=== PATIENT | male | born 1945 | race Caucasian/White ===

== ENCOUNTER 2020-06-11 19:23 | Inpatient (IN) ==
[2020-06-11] MEDS ORDERED: KETOROLAC TROMETHAMINE 15 MG/ML VIAL IV ONE (19:38)
--- NOTE | 2020-06-11 19:44 | Emergency Department Note ---
History of Present Illness General Chief complaint: Wound Stated complaint: R LOWER EXTREMITY PAIN, WOUND Time Seen by Provider: 06/11/20 19:24 Source: patient Mode of arrival: EMS Limitations: no limitations History of Present Illness Provider complaint: Right leg pain Maximum Pain Intensity: 10 Patient presents to the ED with a chief complaint of a pain in his right distal leg. He has had a wound in the distal right anterior tibial region for years. He has no additional complaints at this time. The patient has no additional complaints at this time. Pain is worse with touching it. Describes it as a sharp pain. Home Medications Medication Instructions Recorded Confirmed Type aspirin 81 mg tablet,delayed 81 mg PO DAILY 05/26/19 06/11/20 History release atorvastatin 40 mg tablet 40 mg PO HS 05/26/19 06/11/20 History ciclesonide 160 mcg/actuation 2 puffs INH BID 05/26/19 06/11/20 History aerosol inhaler hydrochlorothiazide 12.5 mg tablet 12.5 mg PO DAILY 05/26/19 06/11/20 History isosorbide mononitrate 30 mg 30 mg PO DAILY 05/26/19 06/11/20 History tablet,extended release 24 hr lisinopril 5 mg tablet 5 mg PO DAILY 05/26/19 06/11/20 History metoprolol succinate 25 mg 12.5 mg PO BID 05/26/19 06/11/20 History tablet,extended release 24 hr montelukast 10 mg tablet 10 mg PO DAILY 05/26/19 06/11/20 History nitroglycerin 0.4 mg sublingual 0.4 mg SL DAILY PRN 05/26/19 06/11/20 History tablet prednisone 5 mg tablet 5 mg PO BID 05/26/19 06/11/20 History ranolazine 500 mg tablet,extended 500 mg PO BID 05/26/19 06/11/20 History release,12 hr umeclidinium 62.5 mcg-vilanterol 1 puffs INH DAILY 05/26/19 06/11/20 History 25 mcg/actuation powdr for inhalation diclofenac sodium [Voltaren] 50 mg PO BID 06/11/20 06/11/20 History levalbuterol tartrate [Xopenex HFA] 2 inh INHALATION QID PRN 06/11/20 06/11/20 History Allergies Allergy/AdvReac Type Severity Reaction Status Date / Time clindamycin Allergy Unknown Unknown Verified 06/11/20 20:20 Penicillins Allergy Unknown Unknown Verified 06/11/20 20:20 Past Med/Surg History Medical History CAD (coronary artery disease) Surgical History No pertinent past surgical history Social History Smoking Status: Unknown if ever smoked Preferred Language: German Feels Safe at Home: Yes Review of Systems A total of 10 systems reviewed and were otherwise negative Physical Exam Vital Signs Vital Signs - 24 hr 06/11/20 19:35 06/11/20 21:13 06/11/20 21:21 Temperature 37.0 C Temperature Source Oral Pulse Rate 121 H Pulse Rate [Apical] 114 H Pulse Rhythm Regular Pulse Strength Normal Respiratory Rate 26 H 18 Respiratory Effort / Characteristics Non-Labored Respiratory Depth Normal Respiratory Pattern Regular Blood Pressure 93/67 L Blood Pressure [Right Arm] 92/45 L Blood Pressure Mean 75 Blood Pressure Mean [Right Arm] 60 Blood Pressure Position Sitting Pulse Oximetry 92 90 92 Oxygen Delivery Method Room Air Room Air Nasal Cannula Oxygen Flow Rate 2 Sepsis Recent Fever Within 48 Hours No Sepsis New/Unexplained Change in Mental Status N/A Sepsis Action Taken by Nursing Physician Notified CONSTITUTIONAL/VITAL SIGNS: Reviewed / noted above. GENERAL: Non-toxic in appearance. INTEGUMENTARY: Warm, dry, and [employer] [place]. HEAD: Normocephalic. EYES: without scleral icterus or trauma. ENT/OROPHARYNX: clear and moist. LYMPHADENOPATHY/NECK: Is supple without lymphadenopathy or meningismus. RESPIRATORY: Lungs clear and equal. CARDIOVASCULAR: Regular rate and rhythm. GI/ABDOMEN: Soft and nontender. No organomegaly or pulsatile mass. No rebound or guarding. Normal bowel sounds. EXTREMITIES: Warm and well perfused. The patient has a chronic appearing wound in the right anterior tibial region that seems to be chronic. The patient has some erythema to the right leg but is in the distal right leg. His leg is cool to touch. There is no palpable distal pulses in either distal extremity but the left one is not cool. No dopplerable pulses are found in the bilateral lower extremities. NEUROLOGICAL: Intact without focal deficits. PSYCHIATRIC: normal affect. MUSCULOSKELETAL: Normally developed with good muscle tone. TRIAGE NURSING DOCUMENTATION REVIEWED. Course Administered Medications Levofloxacin/Dextrose (Levaquin/D5w) 750 mg in 150 mls @ 100 mls/hr IV NOW STA Stop: 06/11/20 22:50 Last Admin: 06/11/20 21:53 Dose: 100 mls/hr Documented by: [id number] Vancomycin HCl 1,500 mg/ (Sodium Chloride) 530 mls @ 200 mls/hr IV NOW ONE Stop: 06/12/20 00:05 Last Admin: 06/11/20 21:53 Dose: 200 mls/hr Documented by: [id number] Discontinued Medications Fentanyl Citrate (Fentanyl Citrate 100 Mcg/2 Ml Vial) 50 mcg IV NOW STA Stop: 06/11/20 21:22 Last Admin: 06/11/20 21:52 Dose: 50 mcg Documented by: [id number] Sodium Chloride (Nss) 500 mls @ 999 mls/hr IV .Q31M LIZETT Stop: 06/11/20 20:15 Last Infusion: 06/11/20 20:24 Dose: 0 mls/hr Documented by: [id number] Admin: 06/11/20 19:52 Dose: 999 mls/hr Documented by: [id number] Sodium Chloride (Nss 1000ml) 1,000 mls @ 999 mls/hr IV .Q1H1M ONE Stop: 06/11/20 22:32 Last Admin: 06/11/20 21:53 Dose: 999 mls/hr Documented by: [id number] Ioversol (Optiray 320 125ml) 120 ml IV ONCE ONE Stop: 06/11/20 20:28 Last Admin: 06/11/20 20:27 Dose: 120 ml Documented by: [id number] Ketorolac Tromethamine (Ketorolac Tromethamine 15 Mg/Ml Vial) 15 mg IV NOW ONE Stop: 06/11/20 19:39 Last Admin: 06/11/20 19:52 Dose: 15 mg Documented by: [id number] Critical Care Time Critical Care Time: Yes Total Critical Care Time: 45 I have personally spent 45 minutes of critical care time in the direct management of this patient. This includes bedside care, interpretation of diagnostic studies, and testing, discussion with consultants, patient, and family members, and other required patient management activities. This 45 minutes is in excess of all separately billable procedures. Medical Decision Making Differential Diagnosis Differential includes vascular sufficiency, ischemic limb, infection, osteomyelitis, DVT Medical Records Attestation: I reviewed the patient's medical records. Home Medications Current Medication List: was personally reviewed by me Laboratory Data Attestation: I reviewed the patient's lab results. Result diagrams: 06/11/20 19:44 06/11/20 19:44 Lab Results 06/11/20 06/11/20 06/11/20 Range/Units 19:44 19:44 21:13 WBC 18.41 H (4.8-10.8) K/uL RBC 4.33 L (4.7-6.1) M/uL Hgb 13.6 L (14.0-18.0) g/dL Hct 39.6 L (42-52) % MCV 91.5 (80-100) fL MCH 31.4 (25-34) pg MCHC 34.3 (32-36) g/dL RDW Std Deviation 48.3 H (36.4-46.3) fL RDW Coeff of Sarah 14.4 (11.5-14.5) % Plt Count 138 (130-400) K/uL MPV 12.9 H (7.4-10.4) fL Neutrophils % (Manual) 81.4 % Lymphocytes % (Manual) 7.1 % Monocytes % (Manual) 10.6 % Myelocytes % (Man) 0.9 % Neutrophils # (Manual) 14.99 H (1.4-6.5) K/uL Total Absolute Neuts 14.99 H (1.4-6.5) K/uL Lymphocytes # (Manual) 1.31 (1.2-3.4) K/uL Total Abs Lymphocytes 1.31 (1.2-3.4) K/uL Monocytes # (Manual) 1.95 H (0.11-0.59) K/uL Myelocytes # (Manual) 0.17 H (0-0) K/uL Acanthocytes (Spur) 1+ Sodium 143 (136-145) mmol/L Potassium 3.6 (3.5-5.1) mmol/L Chloride 109 H (98-107) mmol/L Carbon Dioxide 23 (21-32) mmol/L Anion Gap 11.0 (3-11) BUN 23 H (7-18) mg/dl Creatinine 0.87 (0.6-1.4) mg/dl Est Cr Clr Drug Dosing 53.5 ml/min Est GFR ( Amer) 99.2 Est GFR (Non-Af Amer) 85.6 BUN/Creatinine Ratio 26.9 H (10-20) Glucose 93 (70-99) mg/dl Lactate (0.4-2.0) mmol/L Calcium 7.9 L (8.5-10.1) mg/dl Total Bilirubin 0.7 (0.2-1) mg/dl AST 7 L (15-37) U/L ALT 14 (12-78) U/L Alkaline Phosphatase 38 L (45-117) U/L Total Protein 5.8 L (6.4-8.2) gm/dl Albumin 2.8 L (3.4-5.0) gm/dl Globulin 3.0 (2.5-4.0) gm/dl Albumin/Globulin Ratio 0.9 (0.9-2) COVID-19 Eval Order Covid19 IDNow atMSDC SARS-CoV-2, RNA, NAAT (NEGATIVE) 06/11/20 06/11/20 Range/Units 21:13 21:49 WBC (4.8-10.8) K/uL RBC (4.7-6.1) M/uL Hgb (14.0-18.0) g/dL Hct (42-52) % MCV (80-100) fL MCH (25-34) pg MCHC (32-36) g/dL RDW Std Deviation (36.4-46.3) fL RDW Coeff of Sarah (11.5-14.5) % Plt Count (130-400) K/uL MPV (7.4-10.4) fL Neutrophils % (Manual) % Lymphocytes % (Manual) % Monocytes % (Manual) % Myelocytes % (Man) % Neutrophils # (Manual) (1.4-6.5) K/uL Total Absolute Neuts (1.4-6.5) K/uL Lymphocytes # (Manual) (1.2-3.4) K/uL Total Abs Lymphocytes (1.2-3.4) K/uL Monocytes # (Manual) (0.11-0.59) K/uL Myelocytes # (Manual) (0-0) K/uL Acanthocytes (Spur) Sodium (136-145) mmol/L Potassium (3.5-5.1) mmol/L Chloride (98-107) mmol/L Carbon Dioxide (21-32) mmol/L Anion Gap (3-11) BUN (7-18) mg/dl Creatinine (0.6-1.4) mg/dl Est Cr Clr Drug Dosing ml/min Est GFR ( Amer) Est GFR (Non-Af Amer) BUN/Creatinine Ratio (10-20) Glucose (70-99) mg/dl Lactate 3.6 H* (0.4-2.0) mmol/L Calcium (8.5-10.1) mg/dl Total Bilirubin (0.2-1) mg/dl AST (15-37) U/L ALT (12-78) U/L Alkaline Phosphatase (45-117) U/L Total Protein (6.4-8.2) gm/dl Albumin (3.4-5.0) gm/dl Globulin (2.5-4.0) gm/dl Albumin/Globulin Ratio (0.9-2) COVID-19 Eval Order SARS-CoV-2, RNA, NAAT NEGATIVE (NEGATIVE) MDM Narrative Patient presents with what appears to be an ischemic right leg in the distal half of the right lower leg. His blood pressure is 93/67. Pulse is 120. The patient platelets count is 18,000. Hemoglobin is 13.6. His chemistry panel was unremarkable. His chest x-ray reveals a right lower lobe pneumonia. Lactic acid level was elevated. Covid test is negative. CT scan confirms this as a right middle and right lower lobe pneumonia suggestive of multifocal pneumonia. The patient has extensive vascular disease in the lower extremities there is likely related to his cool right leg. The patient was given IV fluids. During his ED stay his blood pressure did drop some. He was given IV Levaquin as well as IV vancomycin. He was given some IV Toradol for his discomfort and IV fentanyl for his discomfort. I did speak with Dr. Her about the patient. He will see the patient in consultation. The patient will be admitted to the medicine service for further evaluation and care. Impression & Plan Pneumonia, Peripheral vascular disease, Ischemia of right lower extremity, Sepsis Discharge Plan Visit Data Chief Complaint: Wound Stated Complaint: R LOWER EXTREMITY PAIN, WOUND ED Provider: Pee Funes Discharge Problem: Pneumonia, Peripheral vascular disease, Ischemia of right lower extremity, Sepsis Patient Disposition: Home - Self-Care Forms Stand Alone Forms: My [facility], Virtual Emergency Department, I mportant Visit Information Prescriptions Prescriptions: No Action hydrochlorothiazide 12.5 mg tablet 12.5 mg PO DAILY RF: 0 Anoro Ellipta 62.5-25 mcg/actuation blister with device 1 puffs INH DAILY RF: 0 [place] 160 mcg/actuation HFA aerosol inhaler 2 puffs INH BID RF: 0 aspirin 81 mg tablet,delayed release (DR/EC) 81 mg PO DAILY RF: 0 atorvastatin 40 mg tablet 40 mg PO HS RF: 0 isosorbide mononitrate 30 mg tablet extended release 24 hr 30 mg PO DAILY RF: 0 lisinopril 5 mg tablet 5 mg PO DAILY RF: 0 metoprolol succinate 25 mg tablet extended release 24 hr 12.5 mg PO BID RF: 0 montelukast 10 mg tablet 10 mg PO DAILY RF: 0 nitroglycerin 0.4 mg tablet, sublingual 0.4 mg SL DAILY PRN (Reason: Chest Pain) RF: 0 prednisone 5 mg tablet 5 mg PO BID RF: 0 ranolazine 500 mg tablet extended release 12 hr 500 mg PO BID RF: 0 diclofenac sodium [Voltaren] 50 mg Tablet,Delayed Release (Dr/Ec) 50 mg PO BID RF: 0 levalbuterol tartrate [Xopenex HFA] 45 mcg/actuation Hfa Aerosol Inhaler 2 inh INHALATION QID PRN (Reason: Shortness Of Breath) RF: 0 Referrals Referrals: Tatianna ALVA [Primary Care Provider] - Discharge Problem: Pneumonia Qualifiers: Pneumonia type: due to unspecified organism Laterality: right Lung location: lower lobe of lung Qualified Code(s): J18.9 - Pneumonia, unspecified organism Sepsis Qualifiers: Sepsis type: sepsis due to unspecified organism Sepsis acute organ dysfunction status: without acute organ dysfunction Qualified Code(s): A41.9 - Sepsis, unspecified organism
[2020-06-11] MEDS ORDERED: SODIUM CHLORIDE 0.9% 500 ML IV SCH (19:45)
[2020-06-11 20:00] LABS: Hematocrit (blood only) 39.6 % (42-52); Hemoglobin 13.6 g/dL (14.0-18.0); Mean Corpuscular Hemoglobin 31.4 pg (25-34); Mean Corpuscular Hgb Conc 34.3 g/dL (32-36); Mean Corpuscular Volume 91.5 fL (80-100); Mean Platelet Volume 12.9 fL (7.4-10.4); Platelet Count 138 K/uL (130-400); RDW Coefficient of Variation 14.4 % (11.5-14.5); RDW Standard Deviation 48.3 fL (36.4-46.3); Red Blood Count 4.33 M/uL (4.7-6.1); White Blood Count 18.41 K/uL (4.8-10.8)
[2020-06-11 20:17] LABS: Albumin Level 2.8 gm/dl (3.4-5.0); BUN Creatinine Ratio 26.9 (10-20); Calcium 7.9 mg/dl (8.5-10.1); Creatinine Clr Calc Pharmacy 53.5 ml/min; Est GFR (African American) 99.2; Est GFR (Non-African American) 85.6; Potassium 3.6 mmol/L (3.5-5.1)
[2020-06-11 20:20] LABS: Albumin Globulin Ratio 0.9 (0.9-2); Bilirubin,Total 0.7 mg/dl (0.2-1); Total Protein 5.8 gm/dl (6.4-8.2)
[2020-06-11 20:21] LABS: ALC (manual) 1.31 K/uL (1.2-3.4); ANC (manual) 14.99 K/uL (1.4-6.5); Acanthocytes 1+; Lymphocytes # (manual) 1.31 K/uL (1.2-3.4); Lymphocytes % (manual) 7.1 %; Monocytes # (manual) 1.95 K/uL (0.11-0.59); Monocytes % (manual) 10.6 %; Myelocytes # (manual) 0.17 K/uL (0-0); Myelocytes % (manual) 0.9 %; Neutrophils # (manual) 14.99 K/uL (1.4-6.5); Neutrophils % (manual) 81.4 %
[2020-06-11] MEDS ORDERED: OPTIRAY 320 125ml IV ONE (20:27)
[2020-06-11] MEDS ORDERED: levoFLOXacin/D5W 750 MG/150 ML BAG IV STA (21:21)
[2020-06-11] MEDS ORDERED: fentaNYL citrate 100 MCG/2 ML VIAL IV STA (21:21)
[2020-06-11] MEDS ORDERED: VANCOMYCIN CONSULT ACTIVE PRN (21:27)
[2020-06-11] MEDS ORDERED: VANCOMYCIN HCL 1,500 MG in SODIUM CHLORIDE 0.9% 500 ML IV ONE (21:27)
[2020-06-11] MEDS ORDERED: SODIUM CHLORIDE 0.9% 1000ML 1,000 ML IV ONE ×2 (21:32→22:36)
[2020-06-11] MEDS: ALBUMIN 25% 12.5 GM/50 ML VIAL IV SCH (23:46)
[2020-06-11] MEDS ORDERED: CEFEPIME 2,000 MG/20 ML VIAL IV STA (23:52)
--- NOTE | 2020-06-11 23:55 | History & Physical Report ---
Date of Service June 11, 2020 Assessment & Plan (1) Pneumonia: 75-year-old male with past medical history significant for CAD, HTN, HLD, extensive smoking history and COPD, hemorrhoids admitted for severe sepsis with acute hypoxic respiratory failure, with initial complaint of RLE pain with findings consistent with critical limb ischemia. Severe sepsis with acute hypoxic respiratory failure: - On arrival with complaints of RLE pain, quickly started to develop shortness of breath requiring supplemental oxygen. - COVID-19 testing negative. Lactate elevated to 4.4. WBC count elevated to 18.41. - CXR showed large RLL consolidation. - CTA abdomen and pelvis noted extensive consolidative and ground glass density seen in the right middle and right lower lobes suggestive of multifocal pneumonia. - Patient was started on vanc/Levaquin therapies, transitioned to vanc/cefepime/Flagyl to cover for aspiration pneumonia pathogens. - Did receive total of 2L NSS in the ER, but very rapidly required Lasix due to fluid overload causing dyspnea and hypoxia. - Patient is currently on 9L oxygen mask. Move to HFNC if necessary; will try to defer BiPAP as much as possible given concern for aspiration pneumonia on imaging. - Orders placed for albumin with Lasix IV. - Mucomyst, chest PT twice daily for secretions. - Continue home montelukast, prednisone 5 mg p.o. twice daily, Anoro Ellipta inhaler. - Acute hypoxic respiratory failure suspected to be multifactorial secondary to acute RLL pneumonia, fluid overload with likely reduced EF, baseline COPD with extensive smoking history. Critical RLE ischemia: - CTA A/P showed extensive atherosclerotic calcifications in the infrarenal ab dominal aorta common iliac and external iliac arteries. Severe stenosis noted of right external iliac artery, left common iliac artery, left popliteal artery, right superficial femoral and popliteal arteries. Occlusion of right posterior and right peroneal arteries just beyond the origin. - Patient has a anterior RLE nonhealing ulcer that the patient reports he has had for 2 years. - Vascular surgery consult placed and appreciate recommendations: Suspect that due to extensive disease this patient may require amputation. - Order placed for Tylenol as needed for pain. Given significant respiratory compromise at this time will hold on opiate as needed medications. CAD/ ?CHF: - History of CAD noted in chart, no echocardiogram on file. - Patient noted to become severely fluid overloaded and hypoxic with audible crackles after receiving 2L NSS bolus for severe sepsis in the ER. - TTE ordered for a.m. given fluid overload with unknown EF. - Continue isosorbide mononitrate, ranolazine, metoprolol. - Hold aspirin in the setting of BRBPR. - Lasix as needed for signs of fluid overload. Rectal bleeding: - While in ER patient had a BM with small amount of bright red blood in stool. - Patient hemoglobin on arrival 13.3, has a history of hemorrhoids, likely secondary to this. - However, will still hold antiplatelet and anticoagulant medications and await follow-up H/H. HLD: - Continue home atorvastatin. HTN: - On arrival patient was acutely hypotensive to 80s/50s, with improvement in BP to 150s/80s with fluid resuscitation. - Will hold HCTZ, lisinopril given recent hypotension. - Continue isosorbide mononitrate and metoprolol. - Hold aspirin in the setting of BRBPR. CODE STATUS: Full code FEN/GI: Heart healthy low-sodium diet DVT prophylaxis: SCDs, hold heparin at this time given BRBPR Dispo: Telemetry for continuous cardiac and oxygen monitoring in the setting of acute hypoxic respiratory failure and severe sepsis (2) Peripheral vascular disease: (3) Sepsis with acute hypoxic respiratory failure: (4) Critical lower limb ischemia: History of Present Illness Chief Complaint: RLE pain, dyspnea Primary Care Provider: ARTIE aCmpuzano 75-year-old male with past medical history significant for CAD, HTN, HLD, extensive smoking history and COPD, hemorrhoids admitted for severe sepsis with acute hypoxic respiratory failure, with initial complaint of RLE pain with findings consistent with critical limb ischemia. Patient reports that he has been dealing with a nonhealing RLE wound for the last 2 years, acutely painful, worse with palpation. No recent fevers or chills. On initial presentation was not complaining of shortness of breath, however when I evaluated the patient he appeared to be short of breath with tachypnea and was on nasal cannula. He reports that he has dealt with some shortness of breath with over the last several days but that this is the worst he has felt. No known sick contacts. ER course included COVID-19 negative, elevated lactate and WBCs, CXR and CT suggestive of multifocal pneumonia in RLL. CTA showed findings suggestive of critical limb ischemia and RLE with fairly extensive PAD throughout. On my interview patient is denying chest pain, nausea or vomiting, diarrhea or constipation, dizziness or headache. Does endorse significant shortness of breath, and can be heard gurgling with expiration. Allergies Allergy/AdvReac Type Severity Reaction Status Date / Time clindamycin Allergy Unknown Unknown Verified 06/11/20 20:20 Penicillins Allergy Unknown Unknown Verified 06/11/20 20:20 Home Medications Medication Instructions Recorded Confirmed Type aspirin 81 mg tablet,delayed 81 mg PO DAILY 05/26/19 06/11/20 History release atorvastatin 40 mg tablet 40 mg PO HS 05/26/19 06/11/20 History ciclesonide 160 mcg/actuation 2 puffs INH BID 05/26/19 06/11/20 History aerosol inhaler hydrochlorothiazide 12.5 mg tablet 12.5 mg PO DAILY 05/26/19 06/11/20 History isosorbide mononitrate 30 mg 30 mg PO DAILY 05/26/19 06/11/20 History tablet,extended release 24 hr lisinopril 5 mg tablet 5 mg PO DAILY 05/26/19 06/11/20 History metoprolol succinate 25 mg 12.5 mg PO BID 05/26/19 06/11/20 History tablet,extended release 24 hr montelukast 10 mg tablet 10 mg PO DAILY 05/26/19 06/11/20 History nitroglycerin 0.4 mg sublingual 0.4 mg SL DAILY PRN 05/26/19 06/11/20 History tablet prednisone 5 mg tablet 5 mg PO BID 05/26/19 06/11/20 History ranolazine 500 mg tablet,extended 500 mg PO BID 05/26/19 06/11/20 History release,12 hr umeclidinium 62.5 mcg-vilanterol 1 puffs INH DAILY 05/26/19 06/11/20 History 25 mcg/actuation powdr for inhalation diclofenac sodium [Voltaren] 50 mg PO BID 06/11/20 06/11/20 History levalbuterol tartrate [Xopenex HFA] 2 inh INHALATION QID PRN 06/11/20 06/11/20 History Past Med/Surg History Medical History CAD (coronary artery disease) Surgical History No pertinent past surgical history Social History Smoking Status: Unknown if ever smoked Preferred Language: Thai Feels Safe at Home: Yes Review of Systems 2 Review of Systems: All systems reviewed & are unremarkable except as noted in HPI & below Constitutional: + malaise; no fever and no chills Respiratory: + cough and + dyspnea Cardiovascular: no chest pain, no palpitations and no edema Gastrointestinal: no abdominal pain, no constipation and no diarrhea/loose stools Physical Exam Constitutional: well developed, + acute distress (Due to breathing), + ill appearing and + thin Eyes: PERRL, conjunctivae normal, anicteric sclerae ENMT: external ear and nose normal, oropharynx normal Neck: normal visual inspection Respiratory: Decreased breath sounds at right lung base, no wheezes noted. On repeat examination after called by nursing patient did appear to have audible crackles and signs of fluid overload Cardiovascular: Rate/Rhythm: regular rhythm and + tachycardic Gastrointestinal (Abdomen): normal bowel sounds, soft, nontender, no hepatosplenomegaly Musculoskeletal: no cyanosis or clubbing, extremities motor strength 5/5 Skin: no rashes, warm and dry Neurologic: AAOx3, normal speech. PERRLA, EOMI, no nystagmus. Normal visual acuity bilaterally. Bilateral UE, LE, and face without sensory or motor deficits. DTRs normal. II- XII intact bilaterally. No pronator drift. No tremor. No ataxia. Psychiatric: A+Ox3, euthymic affect Results & Data Results & Data ([facility]) Vital Signs (Past 12 Hours) Vital Signs Temp Pulse Pulse Resp BP BP Pulse Ox 06/11/20 23:31 118 H 29 H 139/92 92 06/11/20 23:01 112 H 23 112/82 94 06/11/20 22:56 106 H 27 H 104/69 95 06/11/20 22:30 91 H 24 87/63 L 94 06/11/20 21:21 92 06/11/20 21:13 114 H 18 92/45 L 90 06/11/20 19:35 37.0 C 121 H 26 H 93/67 L 92 Code Status & VTE Plan VTE Prophylaxis Plan VTE Prophylaxis will be ordered: Yes Resident Activity Tracking Resident Involvement: Resident Care Provided Care Provided: Adult Hospital Medicine (1) Pneumonia Laterality: right Lung location: lower lobe of lung Pneumonia type: due to unspecified organism Qualified Code(s): J18.9 - Pneumonia, unspecified organism
[2020-06-12] MEDS ORDERED: FUROSEMIDE 40 MG in SYRINGE 0 ML IV SCH (00:30)
[2020-06-12] MEDS: ALBUMIN 25% 12.5 GM/50 ML VIAL IV SCH ×3 (00:44→02:36)
[2020-06-12] MEDS: metroNIDAZOLE 500 MG/100 ML BAG IV SCH ×4 (00:53→23:18)
[2020-06-12] MEDS ORDERED: ACETAMINOPHEN 325 MG TAB PO PRN (02:25)
[2020-06-12] MEDS ORDERED: ALBUTEROL 0.083% NEBU SOLN 3 ML VIAL NEB PRN (02:25)
[2020-06-12] MEDS ORDERED: LEVALBUTEROL TARTRATE 15 GM HFA.AER.AD INH PRN (02:25)
[2020-06-12] MEDS ORDERED: NITROGLYCERIN SL 0.4 MG/TAB TAB SL PRN (02:25)
[2020-06-12] MEDS ORDERED: HEPARIN SODIUM/DEXTROSE 25,000 UNITS/500 ML BAG IV SCH (02:25)
[2020-06-12] MEDS ORDERED: FUROSEMIDE 40 MG in SYRINGE 0 ML IV ONE (03:48)
[2020-06-12] MEDS ORDERED: ACETYLCYSTEINE 20% INHAL SOLN 4ML ***DISPENSED BY RESP. INH ONE (04:30)
[2020-06-12] MEDS: LEVALBUTEROL HCL 0.63 MG/3 ML NEB NEB PRN (04:36)
[2020-06-12] MEDS ORDERED: KETOROLAC TROMETHAMINE 15 MG/ML VIAL IV ONE (05:02)
[2020-06-12] MEDS: Heparin IV Adult Wt-Based Standard *NO* Bolus Protocol IV SCH ×2 (05:17→05:42)
[2020-06-12] MEDS ORDERED: ACETYLCYSTEINE 20% INHAL SOLN 4ML ***DISPENSED BY RESP. INH SCH (07:00)
[2020-06-12 07:08] LABS: Mean Corpuscular Hgb Conc 32.8 g/dL (32-36)
--- NOTE | 2020-06-12 07:25 | XRay Report ---
XR chest 1V portable CLINICAL HISTORY: Resp sx c/w COVID-19 COMPARISON STUDY: No previous studies for comparison. FINDINGS: There is underlying emphysema. No pneumothorax is present. Extensive right lower lung conso lidation. No pneumothorax or pleural effusion is noted. Cardiac size is normal. Mediastinal contours are normal. There is no evidence for pulmonary edema. IMPRESSION: 1. Extensive right lower lung consolidation suggestive of pneumonia. Follow-up radiographs to ensure resolution are recommended. 2. Emphysema. ACT 112: Negative or not required by law. Electronically signed by: Marquis Claire M.D. 06/12/2020 7:24 AM
[2020-06-12 07:38] LABS: BUN Creatinine Ratio 20.6 (10-20); Calcium 7.8 mg/dl (8.5-10.1); Creatinine Clr Calc Pharmacy 49.3 ml/min; Est GFR (African American) 80.3; Est GFR (Non-African American) 69.3; Potassium 3.9 mmol/L (3.5-5.1)
--- NOTE | 2020-06-12 07:51 | Hospitalist Progress Note ---
Date of Service June 12, 2020 Assessment & Plan (1) Pneumonia: 75-year-old male with past medical history significant for CAD, HTN, HLD, extensive smoking history and COPD, hemorrhoids admitted for severe sepsis with acute hypoxic respiratory failure, with initial complaint of RLE pain with findings consistent with critical limb ischemia. Severe sepsis sec to right sided ?aspiration pneumonia/CAP: - COVID-19 testing negative. - Lactate elevated to 4.4 - WBC elevated at 24.26, up from 18.41 yesterday - CXR: "Extensive right lower lung consolidation suggestive of pneumonia. Emphysema." - Aorta w/Runoff CTA: "Extensive right middle lobe and right lower lobe consolidation. This is consistent with pneumonia." - Patient was started on vanc/Levaquin therapies, transitioned to vanc/cefepime/Flagyl to cover for aspiration pneumonia pathogens. - Mucomyst, chest PT twice daily for secretions--patient has been denying these treatments per RT - Continue home montelukast, prednisone 5 mg p.o. twice daily, Anoro Ellipta inhaler. - Ordered speech therapy consult for swallowing evaluation: no issues swallowing - Pulmonology consult placed, follow recs - likely with underlying right side heart dysfunction - follow echo Acute hypoxic respiratory failure: Acute hypoxic respiratory failure suspected to be multifactorial secondary to acute RLL pneumonia, fluid overload with likely reduced EF, baseline COPD with extensive smoking history. - On arrival with complaints of RLE pain, quickly started to develop shortness of breath requiring supplemental oxygen. - no baseline PFT available. - Did receive total of 2L NSS in the ER, - worsening shortness of breath at night - given Lasix for concern of fluid overload. - Received albumin with Lasix IV--no further Lasix will be given for now as he does not seem fluid overloaded at this point - requiring 15L O2 - transitioned to HFNC per pulm recs Critical RLE ischemia: Aorta w/Runoff CTA: " Occlusion of the right common iliac, external iliac and internal iliac arteries with reconstitution at the level of the distal external iliac artery. Severe multifocal stenoses within the right superficial femoral artery with occlusion of the mid to distal aspect superficial femoral artery. No flow to the right foot. Right peroneal and posterior tibial arteries occluded just distal to vessel origins. Occlusion of the right anterior tibial artery at the level the distal shaft of the tibia. Occluded right dorsalis pedis. Vascular surgery consultation is recommended." - Patient has an anterior RLE nonhealing ulcer that the patient reports he has had for 2 years - Vascular surgery consult: - In view of the clinical findings of no motor function and lack of sensation of the right lower extremity, a right above knee amputation is recommended due to the severe occlusive disease seen on CT scan. - Would plan on later this week due to his respiratory condition. - Will consult anesthesia for pre op eval. - Would also consult cardiology due to his coronary history. - Order placed for Tylenol as needed for pain - As Tylenol not helping ordered Ultram 50 mg PO q4h prn--will continue to monitor respiratory status and hold this med if signs of worsening - Received morphine 1mg x1 with minimal relief - Dilaudid 0.5mg prn per pulmonology - Palliative consult placed today, await recs Atrial fibrillation Patient went into afib early this afternoon w HR into 160s-180s There is no clear history of this for the patient--possibly secondary to hypoxia vs pain - Received metoprolol tartrate 5mg IV x1 and pulse down to 80s - Continue metoprolol succinate 12.5mg PO BID - Continue to monitor on telemetry - will need to start anticoagulation once no further rectal bleeding CAD/ ? CHF: History of CAD noted in chart, no echocardiogram on file. concern of fluid overload after 2L given in ED - given lasix overnight. - TTE ordered for today--has not been done due to patient's respiratory status and pain - Continue isosorbide mononitrate, ranolazine, metoprolol. - Hold aspirin in the setting of BRBPR - Lasix as needed for signs of fluid overload. - Cardiology consulted, follow recs Rectal bleeding: While in ER patient had a BM with small amount of bright red blood in stool. Has a history of hemorrhoids, likely secondary to this. - Hemoglobin on arrival 13.3, today at 12.9 - Will consider restarting ASA HLD: - Continue home atorvastatin HTN: - On arrival patient was acutely hypotensive to 80s/50s, with improvement in BP to 150s/80s with fluid resuscitation. - Will continue to hold HCTZ & lisinopril as patient is normotensive - Continue isosorbide mononitrate and metoprolol CODE STATUS: Full code FEN/GI: Heart healthy low-sodium diet DVT prophylaxis: SCDs, hold heparin for now in light of BRBPR but will consider restarting if no further bleeds Dispo: Telemetry for continuous cardiac and oxygen monitoring in the setting of acute hypoxic respiratory failure and severe sepsis (2) Peripheral vascular disease: (3) Sepsis with acute hypoxic respiratory failure: (4) Critical lower limb ischemia: Admission and Anticipated Discharge Date Admission Date: June 12, 2020 Supervising Physician Co-Signing Physician Notes Resident Physician Supervision Note: I independently interviewed and examined the patient and verified the flynn history and physical, reviewed labs and image studies, discussed the case with the resident Dr. Mason and agree with the findings and care plan. reassessed multiple times through the day. in respiratory distress. lungs - crackles + heart - irregular, JVD + Patient short of breath this morning. requiring 15L oxygen. secondary to RLL with underlying copd. asking for pain medication - to help with right leg pain. discussed the concern of respiratory suppression with IV narcotics - judicious use. later went into a fib with HR in 170s. Iv metoprolol ordered. will control pain. will need to add anticoagulation considering high risk CHADS score. Reviewed Echo - 40-45% EF with right heart dysfunction - likely from severe copd. obtain PFT results. spent 35 min of critical care time. Subjective Patient seen this AM at bedside. He is adamant that the Tylenol has not been helping with his right leg pain. He is also very short of breath. Explained that given his respiratory status we have to be very careful with using opioids for his pain. He understands but expresses he would like something additional for pain regardless. Denies CP, abd pain, n/v, fever, chills. Review of Systems Review of Systems: All systems reviewed & are unremarkable except as noted in Subjective Physical Exam Physical Exam: GENERAL: A&Ox3. In pain. NECK: No JVD. No lymphadenopathy. CHEST/LUNGS: Crackles bilaterally, diminished breath sounds throughout. Tachypneic. HEART: RRR. No m/g/r. No carotid bruits. ABDOMEN: NT/ND, soft. BS+ x4 EXTREMITIES: Right leg cold to touch. No sensation below knee. Dorsalis pedis pulse not palpable. No motor function below hip. Non-healing ulcer at anterior RLE above ankle. Results & Data Results & Data ([facility]) Vital Signs (Past 12 Hours) Vital Signs Temp Pulse Pulse Resp BP BP Pulse Ox 06/12/20 07:42 111 H 36 H 95 06/12/20 07:18 36.3 C L 115 H 24 133/71 95 06/12/20 04:38 117 H 28 H 91 06/12/20 04:35 36.4 C L 112 H 18 123/74 94 06/12/20 02:25 110 H 06/12/20 02:00 36.6 C 118 H 26 H 158/82 H 94 06/12/20 01:17 121 H 22 138/88 95 06/12/20 00:31 121 H 32 H 156/83 H 94 06/12/20 00:28 92 06/12/20 00:25 121 H 22 162/90 H 84 L 06/11/20 23:31 118 H 29 H 139/92 92 06/11/20 23:01 112 H 23 112/82 94 06/11/20 22:56 106 H 27 H 104/69 95 06/11/20 22:30 91 H 24 87/63 L 94 06/11/20 21:21 92 06/11/20 21:13 114 H 18 92/45 L 90 Resident Activity Tracking Resident Involvement: Resident Care Provided Care Provided: Adult Hospital Medicine (1) Pneumonia Laterality: right Lung location: lower lobe of lung Pneumonia type: due to unspecified organism Qualified Code(s): J18.9 - Pneumonia, unspecified organism
[2020-06-12] MEDS: FLUTICASONE FUROATE 200MCG 14 PUFFS/INHALER INH SCH (07:56)
[2020-06-12] MEDS: UMECLIDINIUM/VILANTEROL 62.5/25MCG 7 PUFFS/INHALER INH SCH (07:57)
[2020-06-12] MEDS: predniSONE 5 MG TAB PO SCH ×2 (07:58→20:28)
[2020-06-12] MEDS: MONTELUKAST SODIUM 10 MG TABLET PO SCH (07:58)
[2020-06-12] MEDS: RANOLAZINE 500 MG ER TAB PO SCH ×2 (07:58→20:29)
[2020-06-12] MEDS: METOPROLOL SUCC 25MG EXT REL TAB PO SCH ×2 (07:58→20:29)
[2020-06-12] MEDS: ASPIRIN 81 MG ECTAB PO SCH (07:58)
[2020-06-12] MEDS: hydroCHLOROthiazide 25 MG TAB PO SCH (07:58)
[2020-06-12] MEDS: ISOSORBIDE MONO EXTENDED REL 30 MG TABCR PO SCH (07:59)
[2020-06-12] MEDS ORDERED: ACETAMINOPHEN 1,000 MG/100 ML VIAL IV PRN (08:11)
[2020-06-12 08:12] LABS: Hematocrit (blood only) 39.3 % (42-52); Hemoglobin 12.9 g/dL (14.0-18.0); Mean Corpuscular Volume 94.5 fL (80-100); Mean Platelet Volume 13.2 fL (7.4-10.4); Platelet Count 150 K/uL (130-400); Platelet Estimate Decreased (Normal); RDW Coefficient of Variation 14.6 % (11.5-14.5); RDW Standard Deviation 50.1 fL (36.4-46.3); Red Blood Count 4.16 M/uL (4.7-6.1); White Blood Count 24.26 K/uL (4.8-10.8)
--- NOTE | 2020-06-12 08:21 | CT Scan Report ---
CT ANGIOGRAPHY OF THE ABDOMEN AND PELVIS WITH BILATERAL LOWER EXTREMITY RUNOFF CLINICAL HISTORY: rt distal leg cold and pulseless COMPARISON STUDY: No previous studies for comparison. TECHNIQUE: Helical axial images of the abdomen and pelvis and both lower extremities were obtained du ring arterial phase following intravenous injection 120 cc Optiray 320 IV. Sagittal and coronal recon structions were viewed as well as maximal intensity projections on an independent 3-D workstation. Au tomated exposure control was utilized for the study. A dose lowering technique was utilized adhering to the principles of ALARA. FINDINGS: Visualized portions of the lower chest demonstrate extensive consolidation within visualize d portions of the right middle and right lower lobes. There is emphysema. No pneumatosis, free air or portal venous gas is present. The liver, spleen, adrenal glands and pancreas are unremarkable with e xception of moderate bilateral renal cortical thinning. There is no hydronephrosis. The gallbladder i s mildly distended without adjacent infiltration. There is no evidence for a bowel obstruction. There is mild pyloric wall thickening without adjacent infiltration. No lymphadenopathy is present. No acu te fracture is present. There are no suspicious osseous lesions. Note is made of extensive atherosclerotic plaque within the abdominal aorta and branch vessels. There is severe short segment stenosis of the proximal superior mesenteric artery. There is moderate steno sis at origin of celiac axis. The inferior mesenteric artery is likely occluded. Note is made of a 3. 4 cm infrarenal abdominal aortic aneurysm which contains mural thrombus. 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 There is no evidence for rupture. The right common iliac artery is occluded just distal to vessel origin. The small right internal balwinder c artery is occluded with distal reconstitution. The right external iliac artery is occluded with rec onstitution at the level the distal external iliac artery. Extensive atherosclerotic plaque within th e right lower extremity is noted. There is severe stenosis at the origin of the right superficial fem oral artery. Severe multifocal stenoses within this vessel are noted. There is occlusion of the mid t o distal right superficial femoral artery with minimal distal reconstitution. The right popliteal art micah is diminutive. The right peroneal and posterior tibial arteries are occluded just distal to the v essel origins. There are severe multifocal stenoses within the right anterior tibial artery which is occluded at the level of the distal shaft of the tibia. The right dorsalis pedis is occluded. No flow is identified within the right foot. Note is made of severe stenosis of the proximal left external iliac artery. There is also occlusion o f the proximal left internal iliac artery with distal reconstitution. There is extensive atherosclero tic plaque within the left lower extremity. Severe stenosis at the origin of the left superficial fem oral artery is noted. There are severe multifocal stenoses within the left superficial femoral artery . The left popliteal artery is patent. The left trifurcation is patent. The left anterior tibial fran ry is occluded at the level the mid shaft of the left tibia. The left dorsalis pedis is occluded. The left peroneal artery is patent to the ankle mortise. The left posterior tibial artery is patent to t he left foot. There is moderate to severe stenosis at the origin of the left posterior tibial artery. IMPRESSION: 1. Extensive right middle lobe and right lower lobe consolidation. This is consistent with pneumonia. 2. Extensive aortoiliac and bilateral lower extremity atherosclerotic plaque. 3.4 cm infrarenal abdom inal aortic aneurysm with extensive mural thrombus. 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 No rup ture. 3. Occlusion of the right common iliac, external iliac and internal iliac arteries with reconstitutio n at the level of the distal external iliac artery. Severe multifocal stenoses within the right super ficial femoral artery with occlusion of the mid to distal aspect superficial femoral artery. No flow to the right foot. Right peroneal and posterior tibial arteries occluded just distal to vessel origin s. Occlusion of the right anterior tibial artery at the level the distal shaft of the tibia. Occluded right dorsalis pedis. Vascular surgery consultation is recommended. These findings will be called/fa xed to the ordering provider at time of dictation. 4. Severe stenosis of the left external iliac and superficial femoral arteries. Occluded left anterio r tibial artery and dorsalis pedis. Moderate to severe stenosis of the proximal left posterior tibial artery which is patent to the foot. ACT 112: Negative or not required by law. Electronically signed by: Marquis Claire M.D. 06/12/2020 8:19 AM
--- NOTE | 2020-06-12 08:59 | Electrocardiogram Report ---
Test Reason : Blood Pressure : / mmHG Vent. Rate : 117 BPM Atrial Rate : 117 BPM P-R Int : 132 ms QRS Dur : 084 ms QT Int : 334 ms P-R-T Axes : 079 114 047 degrees QTc Int : 465 ms Poor data quality, interpretation may be adversely affected Sinus tachycardia Right atrial enlargement Right axis deviation Pulmonary disease pattern Abnormal ECG No previous ECGs available Confirmed by David Cao ([id number]) on 06/12/2020 8:58:51 AM Referred By: Tatianna ALVA Confirmed By:David Cao
--- NOTE | 2020-06-12 09:21 | Consultation ---
Date of Consultation June 12, 2020 Assessment & Plan (1) Critical lower limb ischemia: CT with contrast showed a right common iliac, external iliac, proximal short superficial femoral artery, and distal superficial femoral artery occlusions. There are multiple severe narrowings of the right superficial femoral artery. No below the knee arteries were seen in the right lower extremity. There is also severe narrowing of the abdominal aorta. In view of the clinical findings of no motor function and lack of sensation of the right lower extremity, a right above knee amputation is recommended due to the severe occlusive disease seen on CT scan. Would plan on later this week due to his respiratory condition. Will consult anesthesia for pre op eval. Would also consult cardiology due to his cornary history. Thank you very much for letting us participate in the care of this patient. History of Present Illness Reason for Consultation: Right leg numbness, pain, and coldness. Attending Physician: Eli Ladd MD History of Present Illness Patient is a 75 yo male who developed right lower extremity pain, numbness, and coldness which was severe yesterday. He has no pain of the left lower extremity. He claims that he was able to walk on the right leg the day before. He has had an ulcer of the right lower extremity for 2years now without healing. He did not walk fast enough or far enough to claudicate. He denies any rest pain prior to yesterday. He did present with worsening shortness of breath. Allergies Allergy/AdvReac Type Severity Reaction Status Date / Time clindamycin Allergy Unknown Unknown Verified 06/11/20 20:20 Penicillins Allergy Unknown Unknown Verified 06/11/20 20:20 Home Medications Medication Instructions Recorded Confirmed Type aspirin 81 mg tablet,delayed 81 mg PO DAILY 05/26/19 06/11/20 History release atorvastatin 40 mg tablet 40 mg PO HS 05/26/19 06/11/20 History ciclesonide 160 mcg/actuation 2 puffs INH BID 05/26/19 06/11/20 History aerosol inhaler hydrochlorothiazide 12.5 mg tablet 12.5 mg PO DAILY 05/26/19 06/11/20 History isosorbide mononitrate 30 mg 30 mg PO DAILY 05/26/19 06/11/20 History tablet,extended release 24 hr lisinopril 5 mg tablet 5 mg PO DAILY 05/26/19 06/11/20 History metoprolol succinate 25 mg 12.5 mg PO BID 05/26/19 06/11/20 History tablet,extended release 24 hr montelukast 10 mg tablet 10 mg PO DAILY 05/26/19 06/11/20 History nitroglycerin 0.4 mg sublingual 0.4 mg SL DAILY PRN 05/26/19 06/11/20 History tablet prednisone 5 mg tablet 5 mg PO BID 05/26/19 06/11/20 History ranolazine 500 mg tablet,extended 500 mg PO BID 05/26/19 06/11/20 History release,12 hr umeclidinium 62.5 mcg-vilanterol 1 puffs INH DAILY 05/26/19 06/11/20 History 25 mcg/actuation powdr for inhalation diclofenac sodium [Voltaren] 50 mg PO BID 06/11/20 06/11/20 History levalbuterol tartrate [Xopenex HFA] 2 inh INHALATION QID PRN 06/11/20 06/11/20 History Patient History Medical History CAD (coronary artery disease) Surgical History No pertinent past surgical history Social History Smoking Status: Unknown if ever smoked Hx Alcohol Use: No Hx Substance Use: No Preferred Language: Upper Sorbian Communication Ability: Effective 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 He has no feeling below the tibial plateau He has no motor function of the right lower extremity below the hip. The leg is cold to touch and mottled from the knee distally. There is a non healing ulcer of the right lower extremity anteriorly above the ankle. Left leg has decreased capillary refill Normal motor function and sensation. No ulcerations are seen Results & Data ([facility]) Vital Signs (Past 12 Hours) Vital Signs Temp Pulse Pulse Resp BP BP Pulse Ox 06/12/20 07:42 111 H 36 H 95 06/12/20 07:18 36.3 C L 115 H 24 133/71 95 06/12/20 04:38 117 H 28 H 91 06/12/20 04:35 36.4 C L 112 H 18 123/74 94 06/12/20 02:25 110 H 06/12/20 02:00 36.6 C 118 H 26 H 158/82 H 94 06/12/20 01:17 121 H 22 138/88 95 06/12/20 00:31 121 H 32 H 156/83 H 94 06/12/20 00:28 92 06/12/20 00:25 121 H 22 162/90 H 84 L 06/11/20 23:31 118 H 29 H 139/92 92 06/11/20 23:01 112 H 23 112/82 94 06/11/20 22:56 106 H 27 H 104/69 95 06/11/20 22:30 91 H 24 87/63 L 94 06/11/20 21:21 92
--- NOTE | 2020-06-12 09:30 | Pharmacy Report ---
Pharmacy Abx Initial Consult - Date of Service June 12, 2020 - Pharmacy Dosing Scope Date of Consult: 06/11/20 Consultation requested by: Dr. Christian Pharmacy is consulted to initiate Vancomycin IV dosing therapy, order appropriate labs and adjust drug dose/frequency. - Subjective The patient is a 75 year old M admitted on 06/12/20 00:00. - Objective Height: 5 ft 7 in Weight: 56.2 kg Vital Signs (Past 12hrs): Vital Signs Temp Pulse Pulse Resp BP BP Pulse Ox 06/12/20 07:42 111 H 36 H 95 06/12/20 07:18 36.3 C L 115 H 24 133/71 95 06/12/20 04:38 117 H 28 H 91 06/12/20 04:35 36.4 C L 112 H 18 123/74 94 06/12/20 02:25 110 H 06/12/20 02:00 36.6 C 118 H 26 H 158/82 H 94 06/12/20 01:17 121 H 22 138/88 95 06/12/20 00:31 121 H 32 H 156/83 H 94 06/12/20 00:28 92 06/12/20 00:25 121 H 22 162/90 H 84 L 06/11/20 23:31 118 H 29 H 139/92 92 06/11/20 23:01 112 H 23 112/82 94 06/11/20 22:56 106 H 27 H 104/69 95 06/11/20 22:30 91 H 24 87/63 L 94 06/11/20 21:21 92 Lab Results (24hrs): Laboratory Tests (24 Hours) 06/12/20 06/12/20 06/11/20 06:35 06:35 19:44 WBC 24.26 H Creatinine 1.06 0.87 Est Cr Clr Drug Dosing 49.3 53.5 06/11/20 19:44 WBC 18.41 H Creatinine Est Cr Clr Drug Dosing Micro Results: 06/11/20 21:49 Aerobic Blood Culture - Pending Blood Anaerobic Blood Culture - Pending 06/11/20 19:44 Aerobic Blood Culture - Pending Blood Anaerobic Blood Culture - Pending - Risk Factors for Resistance * Incarcerated * Prednisone 5 mg PO BID - Assessment & Plan Assessment 75 year old M admitted secondary to RLE pain but found to be SOB upon admission * PMHx significant for smoking with COPD and using Prednisone 5 mg PO BID. * He is afebrile but tachypneic and tachycardic. Requiring 15L on Oxymask currently. His lactate was elevated at 3.6 then went up to 4.4. Leukocytosis has worsened today (18.4k--24.3k). Renal fxn worsened as well (SCr 0.87--1. 06). Will recommend ordering a procalcitonin. * Imaging suggestive of pneumonia. * COVID-19 negative. Blood cultures pending. Unlikely that a MRSA nasal swab would be reliable after already receiving vancomycin. * Agree with vancomycin and cefepime to cover for HCAP organisms. Metronidazole added for aspiration coverage. Vancomycin is only antibiotic pharmacy is consulted on. Plan Vancomycin + Cefepime + Metronidazole for treatment of pneumonia Vancomycin IV * Loading dose: 1500 mg (27 mg/kg) * Maintenance dose: 750 mg IV (13 mg/kg) every 12 hours * Goal trough level: 15 to 20 mcg/mL * Trough level ordered for 06/13/20 Cefepime * 2 g IV every 12 hours for CrCl 30 - 60 mL/min Metronidazole * 500 mg IV every 8 hours Pharmacy will continue to follow and will adjust dose/frequency as necessary. Thank you.
[2020-06-12] MEDS: VANCOMYCIN HCL 750 MG in SODIUM CHLORIDE 0.9% 250 ML IV SCH ×2 (09:32→21:59)
[2020-06-12 09:51] LABS: Troponin I 0.235 ng/ml (0-0.045)
--- NOTE | 2020-06-12 10:08 | Cardiology Consultation ---
Date of Consultation June 12, 2020 History of Present Illness Reason for Consultation: Coronary artery disease, possible CHF Attending Physician: Eli Ladd MD History of Present Illness This is a 75-year-old incarcerated male who has an extensive past medical history including hypertension, dyslipidemia, smoking, COPD and coronary artery disease as well as peripheral vascular disease and limb ischemia. He has had a lot of difficulty with lower extremity discomfort and limb ischemia and presented with pain, he was not short of breath on presentation however subsequently appeared short of breath and tachypneic and admitted to feeling more short of breath the last several days. Chest x-ray and CT scan suggested multifocal pneumonia and he had an elevated lactate level and leukocytosis consistent with sepsis. He was Covid 19 negative. He is being treated for sepsis and respiratory failure. He does have a history of coronary artery disease although I do not have de tails. He did receive IV fluid in the emergency room due to hypotension on arrival, he may have developed congestive heart failure from that. His ejection fraction is unknown. Allergies Allergy/AdvReac Type Severity Reaction Status Date / Time clindamycin Allergy Unknown Unknown Verified 06/11/20 20:20 Penicillins Allergy Unknown Unknown Verified 06/11/20 20:20 Home Medications Medication Instructions Recorded Confirmed Type aspirin 81 mg tablet,delayed 81 mg PO DAILY 05/26/19 06/11/20 History release atorvastatin 40 mg tablet 40 mg PO HS 05/26/19 06/11/20 History ciclesonide 160 mcg/actuation 2 puffs INH BID 05/26/19 06/11/20 History aerosol inhaler hydrochlorothiazide 12.5 mg tablet 12.5 mg PO DAILY 05/26/19 06/11/20 History isosorbide mononitrate 30 mg 30 mg PO DAILY 05/26/19 06/11/20 History tablet,extended release 24 hr lisinopril 5 mg tablet 5 mg PO DAILY 05/26/19 06/11/20 History metoprolol succinate 25 mg 12.5 mg PO BID 05/26/19 06/11/20 History tablet,extended release 24 hr montelukast 10 mg tablet 10 mg PO DAILY 05/26/19 06/11/20 History nitroglycerin 0.4 mg sublingual 0.4 mg SL DAILY PRN 05/26/19 06/11/20 History tablet prednisone 5 mg tablet 5 mg PO BID 05/26/19 06/11/20 History ranolazine 500 mg tablet,extended 500 mg PO BID 05/26/19 06/11/20 History release,12 hr umeclidinium 62.5 mcg-vilanterol 1 puffs INH DAILY 05/26/19 06/11/20 History 25 mcg/actuation powdr for inhalation diclofenac sodium [Voltaren] 50 mg PO BID 06/11/20 06/11/20 History levalbuterol tartrate [Xopenex HFA] 2 inh INHALATION QID PRN 06/11/20 06/11/20 History Patient History Medical History AAA (abdominal aortic aneurysm) CAD (coronary artery disease) Cardiomyopathy, ischemic CHF (congestive heart failure) Chronic steroid use COPD (chronic obstructive pulmonary disease) Critical lower limb ischemia Dyslipidemia Emphysema of lung History of [place] (myocardial infarction) Ischemia of right lower extremity Peripheral vascular disease Tobacco abuse Surgical History History of percutaneous coronary intervention Hx of cardiac catheterization Family History Other Family history non-contributory Social History Smoking Status: Unknown if ever smoked Tobacco Type: Cigarettes Age Started Using Tobacco: 18; packs per day: 1; Number of Years Since Quit: 2; Hx Alcohol Use: No Hx Substance Use: No Preferred Language: Azeri Communication Ability: Effective 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 Required: No marital status: / Current Living Situation: Other Current Living Situation Comment: [facility] How many Children do You have: 1 Feels Safe at Home: Yes Assistive Devices: Oxygen - Continuous Results & Data ([facility]) Vital Signs (Past 12 Hours) Vital Signs Temp Pulse Pulse Resp BP BP Pulse Ox 06/12/20 07:42 111 H 36 H 95 06/12/20 07:18 36.3 C L 115 H 24 133/71 95 06/12/20 04:38 117 H 28 H 91 06/12/20 04:35 36.4 C L 112 H 18 123/74 94 06/12/20 02:25 110 H 06/12/20 02:00 36.6 C 118 H 26 H 158/82 H 94 06/12/20 01:17 121 H 22 138/88 95 06/12/20 00:31 121 H 32 H 156/83 H 94 06/12/20 00:28 92 06/12/20 00:25 121 H 22 162/90 H 84 L 06/11/20 23:31 118 H 29 H 139/92 92 06/11/20 23:01 112 H 23 112/82 94 06/11/20 22:56 106 H 27 H 104/69 95 06/11/20 22:30 91 H 24 87/63 L 94 PG Care Time/CCT Total # of Minutes Spent Total Time Spent with Patient: Total time spent is greater than 50% in coordination of care (as documented) at patient's floor/unit and/or counseling patient: Coding Level of Care Code None
[2020-06-12] MEDS: traMADol HCL 50 MG TABLET PO PRN ×2 (10:20→23:16)
[2020-06-12 10:27] LABS: Allen Test Pos (Pos); HCO3 ABG 17 mmol/L (19-24); Oxygen Saturation ABG 97.1 % (90-95); PCO2 ABG 32 mmHg (35-46); PO2 ABG 93 mmHg (80-95); pH ABG 7.34 (7.35-7.45)
[2020-06-12] MEDS: CEFEPIME 2,000 MG/20 ML VIAL IV SCH ×2 (11:08→23:18)
--- NOTE | 2020-06-12 11:08 | Cardiology Consultation ---
Date of Consultation June 12, 2020 Assessment & Plan (1) CAD (coronary artery disease): Mr. Lomeli is a 75 year old male inmate with COPD, CAD s/p GA 4 years ago (attempted PCI, vessel ruptured, PCI aborted), Ischemic Cardiomyopathy (LVEF 40% to 45%, global hypokinesis, severe inferior hypokinesis), Infrarenal AAA, Extensive Aorto-iliac and Peripheral Arterial Disease, Dyslipidemia, who presented to [facility] ER last evening with ischemic right leg pain, which has been progressive. He admitted to feeling more short of breath over the last several days. Patient was not visibly short of breath on presentation. However he subsequently developed shortness of breath/appeared to be working harder to breathe, was hypotensive, and he was tachypneic. Chest x-ray and CT scan suggested multifocal pneumonia and he had an elevated lactate level with leukocytosis consistent with sepsis. Sepsis protocol was initiated and patient received 1.5 L bolus of IV NSS in the emergency room due to hypotension on arrival. His SARS CoV 2 testing is negative. He is currently being treated for pneumonia of the right lung and acute hypoxic respiratory failure. His primary complaint remains ongoing ischemic leg and foot pain. Dr. Her is planning on performing a Right AKA later this week if his respiratory status allows. His Troponin I is elevated and consistent with demand ischemia, and his Pro-BNP is elevated. Echocardiogram done earlier today. He appears to have a component of combined systolic and diastolic CHF and a dilated RV with elevated pressure/volume overload. Recommend the following: -- Continue to diurese with IV Lasix. -- Keep SpO2 saturations above 94%. -- Monitor I&O's, body weights. -- Continue beta suzanna, long-acting nitrate, ranolazine, and ACEI. (2) Cardiomyopathy, ischemic: ECHOCARDIOGRAM today shows: -- Overall global hypokinesis with severe inferior hypokinesis (consistent with prior infarct). -- LVEF approximately 40% to 45%. -- Moderately dilated RV, with evidence of RV pressure/volume overload. -- Mild MR. -- LV diastolic dysfunction is present. -- Management as outlined above. -- Obtain cardiac catheterization report, any cardiac imaging, and Cardiology reports regarding his GA 4 years ago. (3) Ischemia of right lower extremity: -- Ischemic right lower extremity with extensive aorto-iliac and right SFA disease. -- He has an ischemic wound on his right anterolateral leg x several months. -- Plan is to do a right AKA later if his cardiopulmonary status allows. -- Optimize volume status, aggressively treat underlying pneumonia/COPD. -- Maintain appropriate O2 saturations. -- At this moment he is a high surgical risk. -- After his pulmonary/respiratory has improved and he is hemodynamically stable could proceed with surgery provided that he take his usual cardiac medications including metoprolol, ranolazine, and isosorbide mononitrate. -- We will be able to better assess surgical risk after we review his catheterization report, cardiology notes from an outside facility. (4) Sepsis with acute hypoxic respiratory failure: -- As per attending hospitalist and pulmonology teams. History of Present Illness Reason for Consultation: -- CAD. -- Preoperative Cardiologic Evaluation. Requesting Physician: Eli Ladd MD Attending Physician: Sukhjinder Marshall MD History of Present Illness Mr. Lomeli is a 75 year old male inmate with a history of COPD, CAD s/p GA 4 years ago (attempted PCI, vessel ruptured, PCI aborted), Infrarenal AAA, Extensive Aorto-iliac and Peripheral Arterial Disease, Dyslipidemia, who presented to [facility] ER last evening with ischemic right leg pain, which has been progressive. Patient was not short of breath on presentation. However he subsequently appeared to be short of breath/working harder to breathe, was hypotensive, and he was tachypneic. He admitted to feeling more short of breath over the last several days. Chest x-ray and CT scan suggested multifocal pneumonia and he had an elevated lactate level with leukocytosis consistent with sepsis. Sepsis protocol was initiated and patient received 1.5 L bolus of IV NSS in the emergency room due to hypotension on arrival. His SARS CoV 2 testing is negative. He is currently being treated for pneumonia of the right lung and acute hypoxic respiratory failure. His primary complaint remains ongoing ischemic leg and foot pain. Dr. Her evaluated this patient and summarized the following "CT with contrast showed a right common iliac, external iliac, proximal short superficial femoral artery, and distal superficial femoral artery occlusions. There are multiple severe narrowings of the right superficial femoral artery. No below the knee arteries were seen in the right lower extremity. There is also severe narrowing of the abdominal aorta. In view of the clinical findings of no motor function and lack of sensation of the right lower extremity, a right above knee amputation is recommended due to the severe occlusive disease seen on CT scan. Would plan on later this week due to his respiratory condition." Patient can normally walk about 80 feet on a flat surface before dyspnea stops. He has not been walking much in the recent past due his ischemic leg pain. He denies any exertional chest pain, heaviness, tightness, pressure, or discomfort. He denies any exertional angina. He has chronic CORTES which he blames on COPD. He denies any exertional neck, jaw, back, or arm pain. No palpitations, syncope, or near syncope. Allergies Allergy/AdvReac Type Severity Reaction Status Date / Time clindamycin Allergy Unknown Unknown Verified 06/11/20 20:20 Penicillins Allergy Unknown Unknown Verified 06/11/20 20:20 Home Medications Medication Instructions Recorded Confirmed Type aspirin 81 mg tablet,delayed 81 mg PO DAILY 05/26/19 06/11/20 History release atorvastatin 40 mg tablet 40 mg PO HS 05/26/19 06/11/20 History ciclesonide 160 mcg/actuation 2 puffs INH BID 05/26/19 06/11/20 History aerosol inhaler hydrochlorothiazide 12.5 mg tablet 12.5 mg PO DAILY 05/26/19 06/11/20 History isosorbide mononitrate 30 mg 30 mg PO DAILY 05/26/19 06/11/20 History tablet,extended release 24 hr lisinopril 5 mg tablet 5 mg PO DAILY 05/26/19 06/11/20 History metoprolol succinate 25 mg 12.5 mg PO BID 05/26/19 06/11/20 History tablet,extended release 24 hr montelukast 10 mg tablet 10 mg PO DAILY 05/26/19 06/11/20 History nitroglycerin 0.4 mg sublingual 0.4 mg SL DAILY PRN 05/26/19 06/11/20 History tablet prednisone 5 mg tablet 5 mg PO BID 05/26/19 06/11/20 History ranolazine 500 mg tablet,extended 500 mg PO BID 05/26/19 06/11/20 History release,12 hr umeclidinium 62.5 mcg-vilanterol 1 puffs INH DAILY 05/26/19 06/11/20 History 25 mcg/actuation powdr for inhalation diclofenac sodium [Voltaren] 50 mg PO BID 06/11/20 06/11/20 History levalbuterol tartrate [Xopenex HFA] 2 inh INHALATION QID PRN 06/11/20 06/11/20 History Patient History Medical History (Updated 06/12/20 @ 16:56 by Alejandro Contreras PA-C) AAA (abdominal aortic aneurysm) CAD (coronary artery disease) Cardiomyopathy, ischemic CHF (congestive heart failure) Chronic steroid use COPD (chronic obstructive pulmonary disease) Critical lower limb ischemia Dyslipidemia Emphysema of lung History of GA (myocardial infarction) Ischemia of right lower extremity Peripheral vascular disease Tobacco abuse Surgical History No pertinent past surgical history Social History (Updated 06/12/20 @ 16:12 by Alejandro Contreras PA-C) Smoking Status: Unknown if ever smoked Tobacco Type: Cigarettes Age Started Using Tobacco: 18; packs per day: 1; Number of Years Since Quit: 2; Hx Alcohol Use: No Hx Substance Use: No Preferred Language: Brazilian Communication Ability: Effective Gun Numberer Required: No marital status: / Current Living Situation: Other Current Living Situation Comment: [facility] How many Children do You have: 1 Feels Safe at Home: Yes Assistive Devices: Oxygen - Continuous Physical Exam Physical Exam: GENERAL: Patient is tachypneic, oxy-mask is in place on 10 L/min. HEENT: Head is atraumatic, normocephalic. EOM's intact. Facies symmetric. No perioral cyanosis. NECK: No JVD. JVP is not elevated. Carotid upstrokes are + 2 bilaterally. CHEST/LUNGS: Rales present in the right lower lung field, otherwise diminished breath sounds throughout. CVS: S1 and S2 are regular at 92 bpm. No obvious murmurs, gallops, or rubs. PMI is nondisplaced. No lifts, heaves, or thrills. No abdominal aortic or renal bruits. ABDOMINAL EXAM: Bowel sounds are present. No masses, organomegaly, or tenderness. EXTREMITIES: No clubbing or cyanosis. No edema. Intact posterior tibial and radial pulses bilaterally. NEUROLOGIC EXAM: Patient is awake, alert, and oriented. Pleasant and cooperative. Answers questions appropriately. Speech is clear. Normal movement in all 4 extremities. Gait pattern is unremarkable. ECHOCARDIOGRAM 06/12/2020: -- Overall global hypokinesis with severe inferior hypokinesis (consistent with prior infarct). -- LVEF approximately 40% to 45%. -- Moderately dilated RV, with evidence of RV pressure/volume overload. -- Mild MR. -- LV diastolic dysfunction is present. -- See formal report. TELEMETRY: -- Sinus rhythm to sinus tachycardia. Results & Data ([facility]) Vital Signs (Past 12 Hours) Vital Signs Temp Pulse Pulse Resp BP BP Pulse Ox 06/12/20 10:41 117 H 06/12/20 07:42 111 H 36 H 95 06/12/20 07:18 36.3 C L 115 H 24 133/71 95 06/12/20 04:38 117 H 28 H 91 06/12/20 04:35 36.4 C L 112 H 18 123/74 94 06/12/20 02:25 110 H 06/12/20 02:00 36.6 C 118 H 26 H 158/82 H 94 06/12/20 01:17 121 H 22 138/88 95 06/12/20 00:31 121 H 32 H 156/83 H 94 06/12/20 00:28 92 06/12/20 00:25 121 H 22 162/90 H 84 L 06/11/20 23:31 118 H 29 H 139/92 92 Laboratory Results Laboratory Results - last 24 hr 06/11/20 06/11/20 06/11/20 19:44 19:44 21:13 WBC 18.41 H RBC 4.33 L Hgb 13.6 L Hct 39.6 L MCV 91.5 MCH 31.4 MCHC 34.3 RDW Std Deviation 48.3 H RDW Coeff of Sarah 14.4 Plt Count 138 MPV 12.9 H Neutrophils % (Manual) 81.4 Lymphocytes % (Manual) 7.1 Monocytes % (Manual) 10.6 Myelocytes % (Man) 0.9 Neutrophils # (Manual) 14.99 H Total Absolute Neuts 14.99 H Lymphocytes # (Manual) 1.31 Total Abs Lymphocytes 1.31 Monocytes # (Manual) 1.95 H Myelocytes # (Manual) 0.17 H Platelet Estimate Acanthocytes (Spur) 1+ ABG pH ABG pCO2 ABG pO2 ABG HCO3 ABG O2 Saturation ABG Base Excess Hernandez Test Barometric Pressure Oxygen Given Sodium 143 Potassium 3.6 Chloride 109 H Carbon Dioxide 23 Anion Gap 11.0 BUN 23 H Creatinine 0.87 Est Cr Clr Drug Dosing 53.5 Est GFR ( Amer) 99.2 Est GFR (Non-Af Amer) 85.6 BUN/Creatinine Ratio 26.9 H Glucose 93 Lactate Calcium 7.9 L Total Bilirubin 0.7 AST 7 L ALT 14 Alkaline Phosphatase 38 L Troponin I NT-Pro-B Natriuret Pep Total Protein 5.8 L Albumin 2.8 L Globulin 3.0 Albumin/Globulin Ratio 0.9 Procalcitonin COVID-19 Eval Order Covid19 [facility]Now [facility] SARS-CoV-2, RNA, NAAT 06/11/20 06/11/20 06/11/20 21:13 21:49 23:39 WBC RBC Hgb Hct MCV MCH MCHC RDW Std Deviation RDW Coeff of Sarah Plt Count MPV Neutrophils % (Manual) Lymphocytes % (Manual) Monocytes % (Manual) Myelocytes % (Man) Neutrophils # (Manual) Total Absolute Neuts Lymphocytes # (Manual) Total Abs Lymphocytes Monocytes # (Manual) Myelocytes # (Manual) Platelet Estimate Acanthocytes (Spur) ABG pH ABG pCO2 ABG pO2 ABG HCO3 ABG O2 Saturation ABG Base Excess Hernandez Test Barometric Pressure Oxygen Given Sodium Potassium Chloride Carbon Dioxide Anion Gap BUN Creatinine Est Cr Clr Drug Dosing Est GFR ( Amer) Est GFR (Non-Af Amer) BUN/Creatinine Ratio Glucose Lactate 3.6 H* 4.4 H* Calcium Total Bilirubin AST ALT Alkaline Phosphatase Troponin I NT-Pro-B Natriuret Pep Total Protein Albumin Globulin Albumin/Globulin Ratio Procalcitonin COVID-19 Eval Order SARS-CoV-2, RNA, NAAT NEGATIVE 06/12/20 06/12/20 06/12/20 06:35 06:35 06:35 WBC 24.26 H RBC 4.16 L Hgb 12.9 L Hct 39.3 L MCV 94.5 MCH 31.0 MCHC 32.8 RDW Std Deviation 50.1 H RDW Coeff of Sarah 14.6 H Plt Count 150 MPV 13.2 H Neutrophils % (Manual) Lymphocytes % (Manual) Monocytes % (Manual) Myelocytes % (Man) Neutrophils # (Manual) Total Absolute Neuts Lymphocytes # (Manual) Total Abs Lymphocytes Monocytes # (Manual) Myelocytes # (Manual) Platelet Estimate Decreased L Acanthocytes (Spur) ABG pH ABG pCO2 ABG pO2 ABG HCO3 ABG O2 Saturation ABG Base Excess Hernandez Test Barometric Pressure Oxygen Given Sodium 144 Potassium 3.9 Chloride 108 H Carbon Dioxide 22 Anion Gap 14.0 H BUN 22 H Creatinine 1.06 Est Cr Clr Drug Dosing 49.3 Est GFR ( Amer) 80.3 Est GFR (Non-Af Amer) 69.3 BUN/Creatinine Ratio 20.6 H Glucose 75 Lactate Calcium 7.8 L Total Bilirubin AST ALT Alkaline Phosphatase Troponin I 0.235 H* NT-Pro-B Natriuret Pep 5765 H Total Protein Albumin Globulin Albumin/Globulin Ratio Procalcitonin COVID-19 Eval Order SARS-CoV-2, RNA, NAAT 06/12/20 06/12/20 10:03 10:03 WBC RBC Hgb Hct MCV MCH MCHC RDW Std Deviation RDW Coeff of Sarah Plt Count MPV Neutrophils % (Manual) Lymphocytes % (Manual) Monocytes % (Manual) Myelocytes % (Man) Neutrophils # (Manual) Total Absolute Neuts Lymphocytes # (Manual) Total Abs Lymphocytes Monocytes # (Manual) Myelocytes # (Manual) Platelet Estimate Acanthocytes (Spur) ABG pH 7.34 L ABG pCO2 32 L ABG pO2 93 ABG HCO3 17 L ABG O2 Saturation 97.1 H ABG Base Excess -8.0 Hernandez Test Pos Barometric Pressure 741.3 Oxygen Given 15 L Sodium Potassium Chloride Carbon Dioxide Anion Gap BUN Creatinine Est Cr Clr Drug Dosing Est GFR ( Amer) Est GFR (Non-Af Amer) BUN/Creatinine Ratio Glucose Lactate Calcium Total Bilirubin AST ALT Alkaline Phosphatase Troponin I NT-Pro-B Natriuret Pep Total Protein Albumin Globulin Albumin/Globulin Ratio Procalcitonin 47.29 H COVID-19 Eval Order SARS-CoV-2, RNA, NAAT Diagnostic Findings CT ANGIOGRAM OF ABDOMEN/PELVIS WITH LE RUNOFF: Visualized portions of the lower chest demonstrate extensive consolidation within visualized portions of the right middle and right lower lobes. There is emphysema. No pneumatosis, free air or portal venous gas is present. The liver, spleen, adrenal glands and pancreas are unremarkable with exception of moderate bilateral renal cortical thinning. There is no hydronephrosis. The gallbladder is mildly distended without adjacent infiltration. There is no evidence for a bowel obstruction. There is mild pyloric wall thickening without adjacent infiltration. No lymphadenopathy is present. No acute fracture is present. There are no suspicious osseous lesions. Note is made of extensive atherosclerotic plaque within the abdominal aorta and branch vessels. There is severe short segment stenosis of the proximal superior mesenteric artery. There is moderate stenosis at origin of celiac axis. The inferior mesenteric artery is likely occluded. Note is made of a 3.4 cm infrarenal abdominal aortic aneurysm which contains mural thrombus. 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 There is no evidence for rupture. The right common iliac artery is occluded just distal to vessel origin. The small right internal iliac artery is occluded with distal reconstitution. The right external iliac artery is occluded with reconstitution at the level the distal external iliac artery. Extensive atherosclerotic plaque within the right lower extremity is noted. There is severe stenosis at the origin of the right superficial femoral artery. Severe multifocal stenoses within this vessel are noted. There is occlusion of the mid to distal right superficial femoral artery with minimal distal reconstitution. The right popliteal artery is diminutive. The right peroneal and posterior tibial arteries are occluded just distal to the vessel origins. There are severe multifocal stenoses within the right anterior tibial artery which is occluded at the level of the distal shaft of the tibia. The right dorsalis pedis is occluded. No flow is identified within the right foot. Note is made of severe stenosis of the proximal left external iliac artery. There is also occlusion of the proximal left internal iliac artery with distal reconstitution. There is extensive atherosclerotic plaque within the left lower extremity. Severe stenosis at the origin of the left superficial femoral artery is noted. There are severe multifocal stenoses within the left superficial femoral artery. The left popliteal artery is patent. The left trifurcation is patent. The left anterior tibial artery is occluded at the level the mid shaft of the left tibia. The left dorsalis pedis is occluded. The left peroneal artery is patent to the ankle mortise. The left posterior tibial artery is patent to the left foot. There is moderate to severe stenosis at the origin of the left posterior tibial artery. IMPRESSION: 1. Extensive right middle lobe and right lower lobe consolidation. This is consistent with pneumonia. 2. Extensive aortoiliac and bilateral lower extremity atherosclerotic plaque. 3.4 cm infrarenal abdominal aortic aneurysm with extensive mural thrombus. 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 No rupture. 3. Occlusion of the right common iliac, external iliac and internal iliac arteries with reconstitution at the level of the distal external iliac artery. Severe multifocal stenoses within the right superficial femoral artery with occlusion of the mid to distal aspect superficial femoral artery. No flow to the right foot. Right peroneal and posterior tibial arteries occluded just distal to vessel origins. Occlusion of the right anterior tibial artery at the level the distal shaft of the tibia. Occluded right dorsalis pedis. Vascular surgery consultation is recommended. These findings will be called/faxed to the ordering provider at time of dictation. 4. Severe stenosis of the left external iliac and superficial femoral arteries. Occluded left anterior tibial artery and dorsalis pedis. Moderate to severe stenosis of the proximal left posterior tibial artery which is patent to the foot. CXR 06/11/2020: 1. Extensive right lower lung consolidation suggestive of pneumonia. Follow-up radiographs to ensure resolution are recommended. 2. Emphysema. Medications Administered Acetylcysteine (Acetylcysteine 20% Inhal Soln 4ml Dispensed By Resp.) 5 ml INH Q12R LIZETT Stop: 07/12/20 06:59 Last Admin: 06/12/20 07:41 Dose: Not Given Documented by: [id number] Aspirin (Aspirin 81 Mg Ectab) 81 mg PO DAILY LIZETT Stop: 07/12/20 08:59 Last Admin: 06/12/20 07:58 Dose: 81 mg Documented by: [id number] Fluticasone Furoate (Fluticasone Furoate 200mcg 14 Puffs/Inhaler) 1 puffs INH DAILY LIZETT Stop: 07/12/20 08:59 Last Admin: 06/12/20 07:56 Dose: 1 puffs Documented by: [id number] Hydrochlorothiazide (Hydrochlorothiazide 25 Mg Tab) 12.5 mg PO DAILY LIZETT Stop: 07/12/20 08:59 Last Admin: 06/12/20 07:58 Dose: 12.5 mg Documented by: [id number] Metronidazole (Flagyl) 500 mg in 100 mls @ 100 mls/hr IV Q8H LIZETT Stop: 06/18/20 23:51 Last Infusion: 06/12/20 09:02 Dose: 0 mls/hr Documented by: [id number] Admin: 06/12/20 07:56 Dose: 100 mls/hr Documented by: [id number] Infusion: 02/08/21 02:04 Dose: 0 mls/hr Documented by: [id number] Admin: 06/12/20 00:53 Dose: 100 mls/hr Documented by: [id number] Cefepime HCl (Maxipime) 2,000 mg in 20 mls @ 5 mls/min IV Q12H LIZETT; Protocol Stop: 06/19/20 11:59 Last Admin: 06/12/20 11:08 Dose: 5 mls/min Documented by: [id number] Vancomycin HCl 750 mg/ Sodium (Chloride) 265 mls @ 200 mls/hr IV Q12H LIZETT Stop: 06/19/20 09:59 Last Infusion: 06/12/20 11:08 Dose: 0 mls/hr Documented by: [id number] Admin: 06/12/20 09:32 Dose: 200 mls/hr Documented by: [id number] Acetaminophen (Ofirmev) 1,000 mg in 100 mls @ 400 mls/hr IV Q8H PRN PRN Reason: Pain or Fever Stop: 06/15/20 08:10 Last Infusion: 06/12/20 09:02 Dose: 0 mls/hr Documented by: [id number] Admin: 06/12/20 08:39 Dose: 400 mls/hr Documented by: [id number] Isosorbide Mononitrate (Isosorbide Pettis Extended Rel 30 Mg Tabcr) 30 mg PO DAILY [facility] Stop: 07/12/20 08:59 Last Admin: 06/12/20 07:59 Dose: 30 mg Documented by: [id number] Levalbuterol HCl (Levalbuterol Hcl 0.63 Mg/3 Ml Neb) 0.63 mg NEB Q6H PRN PRN Reason: SOB/Wheezing/with mucomyst if needed Stop: 07/12/20 02:44 Last Admin: 06/12/20 04:36 Dose: 0.63 mg Documented by: [id number] Metoprolol Succinate (Metoprolol Succ 25mg Ext Rel Tab) 12.5 mg PO BID [facility] Stop: 07/12/20 08:59 Last Admin: 06/12/20 07:58 Dose: 12.5 mg Documented by: [id number] Montelukast Sodium (Montelukast Sodium 10 Mg Tablet) 10 mg PO DAILY [facility] Stop: 07/12/20 08:59 Last Admin: 06/12/20 07:58 Dose: 10 mg Documented by: [id number] Prednisone (Prednisone 5 Mg Tab) 5 mg PO BID LIZETT Stop: 07/12/20 08:59 Last Admin: 06/12/20 07:58 Dose: 5 mg Documented by: [id number] Ranolazine (Ranolazine 500 Mg Er Tab) 500 mg PO BID LIZETT Stop: 07/12/20 08:59 Last Admin: 06/12/20 07:58 Dose: 500 mg Documented by: [id number] Tramadol HCl (Tramadol Hcl 50 Mg Tablet) 50 mg PO Q4H PRN PRN Reason: Pain Stop: 07/12/20 09:44 Last Admin: 06/12/20 10:20 Dose: 50 mg Documented by: [id number] Umeclidinium/Vilanterol (Umeclidinium/Vilanterol 62.5/25mcg 7 Puffs/Inhaler) 1 puffs INH DAILY [facility]ZETT Stop: 07/12/20 08:59 Last Admin: 06/12/20 07:57 Dose: 1 puffs Documented by: [id number] PG Care Time/CCT Total # of Minutes Spent Total Time Spent with Patient: Total time spent is greater than 50% in coordination of care (as documented) at patient's floor/unit and/or counseling patient: Coding Level of Care Code 30225 Inpt Consult Level 4 Diagnoses CAD (coronary artery disease) I25.10 Cardiomyopathy, ischemic I25.5 Ischemia of right lower extremity I99.8 Sepsis with acute hypoxic respiratory failure A41.9; R65.20; J96.01 Time Spent (min) 55
--- NOTE | 2020-06-12 11:55 | XCELERA ---
[id number]
[2020-06-12] MEDS ORDERED: FUROSEMIDE 40 MG/4 ML VIAL IV ONE (12:00)
[2020-06-12] MEDS ORDERED: METOPROLOL TARTRATE 1 MG/ML VIAL IV ONE (14:01)
[2020-06-12] MEDS ORDERED: MoRPHine SULFATE 2 MG/ML CARP IV STA (14:03)
[2020-06-12] MEDS ORDERED: HYDROmorphone INJ 0.5 MG/0.5 ML SYR ONE (15:09)
--- NOTE | 2020-06-12 15:36 | XRay Report ---
SINGLE VIEW CHEST CLINICAL HISTORY: Hypoxia. FINDINGS: 2 AP, portable, upright chest radiographs are compared to study dated 06/11/2020. The examina tion is degraded by portable technique and patient rotation. The cardiomediastinal silhouette is unre markable skeletal structures are osteopenic. The noting atherosclerotic calcification of the thoracic aorta. Emphysematous change is noted. There is dense right basilar airspace consolidation with a sma ll right pleural effusion. The left lung appears clear. No pneumothorax is seen. The bony thorax is g rossly intact. IMPRESSION: 1. Advanced emphysema. 2. Right basilar consolidation and a small right pleural effusion is similar to previous. The appeara nce is typical for pneumonia/aspiration pneumonitis. Radiographic follow-up to resolution is recommen ded. ACT 112: Negative or not required by law. Electronically signed by: Alejandro Panda M.D. 06/12/2020 3:35 PM
--- NOTE | 2020-06-12 16:23 | Pulmonary Consultation ---
Date of Consultation June 12, 2020 Assessment & Plan (1) Sepsis with acute hypoxic respiratory failure: Impression: This is a 75-year-old male that is an inmate at [facility]. He presented to emergency department with right lower extremity pain and found to have no pulse. He has history of peripheral vascular disease and peripheral artery disease and was seen in consultation by vascular team. He currently is in respiratory distress secondary to hypoxia from sepsis and pneumonia. He also is in atrial fibrillation with rapid ventricular response. 1. Hypoxemic respiratory failure: CTA of the chest was done and there is no evidence of pulmonary emboli. Patient does have pneumonia of the right lower lobe consistent with aspiration. Blood cultures are pending. No sputum production per patient. He was requiring 15 L oxygen mask but has been titrated 7 L. High flow oxygen has been ordered. Arterial blood gas was collected and showed a pH of 7.34, P CO2 of 32, HCO3 of 17. Patient is using accessory muscles including abdomen as well as upper chest and shoulders. Is also tachypneic. He request to be a DNR/DNI. Continue to treat his hypoxemic respiratory failure with antibiotics including cefepime, metronidazole, and vancomycin. At this point is suspected the metronidazole is because of his lower extremity. No significant benefit from a pulmonary standpoint. Continue to monitor on telemetry. Continue supportive care 2. COPD/emphysema: Patient is on Anoro Ellipta as an outpatient. He is also on chronic prednisone 5 mg p.o. twice daily. In addition, he is also on bronchodilators via albuterol and nebulizer treatment as needed. Patient denies previous history of pulmonary function testing. 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 He quit smoking 2 years ago when the [facility]pc band all tobacco products. Continue supportive care. Would recommend patient follow-up with pulmonary on discharge for pulmonary function testing. Until that point, continue to treat empirically. 3. Sepsis: Etiology appears to be pulmonary with right lower lobe pneumonia. White blood count is greater than 24,000. Procalcitonin is 47.29. We will continue with broad-spectrum antibiotics including gram-negative coverage. Patient currently afebrile. Continue oxygenation support to maintain an SaO2 be tween 88 and 92% secondary to patient's severe COPD and emphysema. 4. CAD: Patient has a slight elevation in troponin which is most likely ischemic demand from his respiratory failure. Echocardiogram shows a preserved left ventricular ejection fraction. No significant ST changes on EKG. Telemet ry reveals new onset atrial fibrillation with rapid ventricular response. Cardiology has been consulted. Patient did respond to 5 mg of IV Lopressor. Further management per cardiology 5. Atrial fibrillation with RVR: Continue with beta-suzanna. Would consider heparin drip for anticoagulation not only for the atrial fibrillation with high ventricular rate but also for arterial obstruction in the lower extremity. I did discuss this with the resident team and will defer to them for further t reatment. 6. Peripheral vascular disease/critical lower limb ischemia: Patient reports surgery 3 years ago with failure. Since that time he reports he has had ongoing difficulty with peripheral obstruction. Vascular surgery has been consulted and will continue to follow the patient. Continue to Doppler lower extremities for pulse. Consider heparin drip. Further recommendations per vascular surgery. 7. Tobacco abuse: Patient with a history of tobacco abuse since his teenage years until 2 years ago. Severe COPD and emphysema as listed above. Patient has abstained from tobacco abuse for the last 2 years secondary to incarceration. 8. Resuscitation status: Lengthy discussion with the patient. He wishes to be a DNR/DNI. We will honor these wishes. I did tell the patient we will continue to treat his primary underlying symptoms of respiratory distress, hypoxia, ischemic limb. He specifically asked that no heroics were taken and does not wish to be intubated or on a ventilator. This was discussed with the residency team as well as with Dr. Perez. Palliative care has been consulted, look expectantly to the palliative care consult note. Thank you for including us in the care of this patient. Please refer to Dr. Perez's addendum and corrections. We will continue to follow the patient at this time from a pulmonary perspective. (2) Pneumonia: Laterality: right Lung location: lower lobe of lung Pneumonia type: due to unspecified organism Qualified Code(s): J18.9 - Pneumonia, unspecified organism (3) COPD (chronic obstructive pulmonary disease): COPD type: unspecified COPD Qualified Code(s): J44.9 - Chronic obstructive pulmonary disease, unspecified (4) Ischemia of right lower extremity: (5) Critical lower limb ischemia: (6) Peripheral vascular disease: (7) CAD (coronary artery disease): Associated angina: with stable angina Coronary Disease-Associated Artery/Lesion type: [place] artery [place] vs. transplanted heart: [place] heart Qualified Code(s): I25.118 - Atherosclerotic heart disease of [place] coronary artery with other forms of angina pectoris (8) Atrial fibrillation with RVR: (9) Chronic steroid use: (10) History of DC (myocardial infarction): (11) Emphysema of lung: Emphysema type: panlobular Qualified Code(s): J43.1 - Panlobular emphysema (12) Cardiomyopathy, ischemic: (13) DVT prophylaxis: Supervising Physician Co-Signing Physician Notes seen and examined. agree with AP as noted by TANIYA. Will follow. History of Present Illness Attending Physician: Eli Ladd MD History of Present Illness Attending: Dr. Perez This is a 75-year-old male who is currently a prisoner at [facility]. He has a past medical history including CAD, DC 4 years ago, attempted PCI with vessel rupture, AAA, peripheral arterial disease, dyslipidemia, COPD, malnutrition, tobacco abuse, CHF, and chronic prednisone use. Patient admitted 06/11/20 with severe right lower extremity pain secondary to arterial vascular disease. In the emergency department he began to have sh ortness of breath and a chest x-ray was obtained which revealed right lower lobe pneumonia. The patient was given levofloxacin and vancomycin and placed on supplemental oxygen. Lab testing revealed a lactic acid of 4.4. Leukocytosis with a white blood cell count of 24.26. Elevated procalcitonin at 47.29. Patient continues to require supplemental oxygen. Earlier this afternoon he was on 15 L via Oxymask. This is been titrated down to 7 L. Patient complains of severe right lower extremity pain and extreme shortness of breath. In discussion regarding treatment plan, patient quickly states that he does not want any heroics in the event of further respiratory failure. We discussed this at length and patient is competent to declare resuscitation status change to DNR/DNI. I told the patient that we would honor this but we will continue to treat as underlying issues. He is agreeable to this. Patient states his primary complaint is right lower extremity pain which has been ongoing for the last 3 years. Secondary complaint of shortness of breath. He denies any fever or chills. He has no significant cough. When asked about sputum, he states he is unable to clear sputum. He was given nebulizer treatments earlier today and reports that with the mask, he is unable to exchange air. He is refusing CPAP or BiPAP at this time secondary to tight fitting mask. Arterial blood gas was drawn and showed a pH of 7.34, PCO2 of 32, bicarb of 17. Patient does have a history of DC and currently has a troponin of 0.235 and a proBNP of 5765. Cardiology has been consulted and is seeing the patient. Echocardiogram was completed and shows a preserved left ventricular ejection fraction of 40 to 45%. There is mild to moderate global hypokinesis with severe inferior hypokinesis. The right ventricle is moderately dilated. There is no mention of aortic stenosis. Regarding the patient's peripheral arterial disease, vascular surgery was consulted and patient was seen by Dr. Her. At this point the patient is not a surgical candidate secondary to severe lactic acidosis and pneumonia. The vascular team will continue to follow. Patient has no prior history of atrial fibrillation. Review of telemetry shows that the patient has been in atrial fibrillation for most of the admission. He was given 5 mg of IV Lopressor and did convert to normal sinus rhythm this afternoon with a rate in the high 80s in the low 90s. Patient was initially on a heparin drip. This was discontinued because patient had some blood in his stool which was later thought to be from external hemorrhoids. Allergies Allergy/AdvReac Type Severity Reaction Status Date / Time clindamycin Allergy Unknown Unknown Verified 06/11/20 20:20 Penicillins Allergy Unknown Unknown Verified 06/11/20 20:20 Home Medications Medication Instructions Recorded Confirmed Type aspirin 81 mg tablet,delayed 81 mg PO DAILY 05/26/19 06/11/20 History release atorvastatin 40 mg tablet 40 mg PO HS 05/26/19 06/11/20 History ciclesonide 160 mcg/actuation 2 puffs INH BID 05/26/19 06/11/20 History aerosol inhaler hydrochlorothiazide 12.5 mg tablet 12.5 mg PO DAILY 05/26/19 06/11/20 History isosorbide mononitrate 30 mg 30 mg PO DAILY 05/26/19 06/11/20 History tablet,extended release 24 hr lisinopril 5 mg tablet 5 mg PO DAILY 05/26/19 06/11/20 History metoprolol succinate 25 mg 12.5 mg PO BID 05/26/19 06/11/20 History tablet,extended release 24 hr montelukast 10 mg tablet 10 mg PO DAILY 05/26/19 06/11/20 History nitroglycerin 0.4 mg sublingual 0.4 mg SL DAILY PRN 05/26/19 06/11/20 History tablet prednisone 5 mg tablet 5 mg PO BID 05/26/19 06/11/20 History ranolazine 500 mg tablet,extended 500 mg PO BID 05/26/19 06/11/20 History release,12 hr umeclidinium 62.5 mcg-vilanterol 1 puffs INH DAILY 05/26/19 06/11/20 History 25 mcg/actuation powdr for inhalation diclofenac sodium [Voltaren] 50 mg PO BID 06/11/20 06/11/20 History levalbuterol tartrate [Xopenex HFA] 2 inh INHALATION QID PRN 06/11/20 06/11/20 History Patient History Medical History AAA (abdominal aortic aneurysm) CAD (coronary artery disease) Cardiomyopathy, ischemic CHF (congestive heart failure) Chronic steroid use COPD (chronic obstructive pulmonary disease) Critical lower limb ischemia Dyslipidemia Emphysema of lung History of DC (myocardial infarction) Ischemia of right lower extremity Peripheral vascular disease Tobacco abuse Surgical History History of percutaneous coronary intervention Hx of cardiac catheterization Family History Other Family history non-contributory Social History (Updated 06/12/20 @ 16:12 by Alejandro Contreras PA-C) Smoking Status: Unknown if ever smoked Tobacco Type: Cigarettes Age Started Using Tobacco: 18; packs per day: 1; Number of Years Since Quit: 2; Hx Alcohol Use: No Hx Substance Use: No Preferred Language: Kazakh Communication Ability: Effective Formula Bottler Required: No marital status: / Current Living Situation: Other Current Living Situation Comment: [facility] correctional institution at [facility] How many Children do You have: 1 Feels Safe at Home: Yes Assistive Devices: Oxygen - Continuous Review of Systems Review of Systems: All systems reviewed & are unremarkable except as noted in HPI & below Physical Exam Physical Exam: GENERAL : Aspiratory acute distress with use of accessory muscles EYES: Positive icterus, gaze conjugate. No nystagmus NOSE: No evidence of epistaxis. Oxymask in place MOUTH: No lesions or candidiasis. Mucosa is dry. Oxymask in place NECK: Supple. No evidence of JVD LUNGS: Diminished lung sounds in all posterior lua. Rhonchi in anterior lua as well as bilateral flanks HEART: Initially irregular, irregular, rate in the 140s. Patient given 5 mg of IV Lopressor and converted to normal sinus rhythm with a rate in the high 80s ABDOMEN: Soft, NT, ND, BS Present EXTREMITIES: No LE edema, pedal pulses intact to left leg. No palpable pulses in the right foot or ankle NEURO: A&OX3. Good sensation of the lower extremities. Pupils equal round and reactive to light. Tongue is midline. No facial droop. Cranial nerves II through XII appear grossly intact without focal deficit. Gait and Romberg were deferred. Results & Data Results & Data ([facility]) Vital Signs (Past 12 Hours) Vital Signs Temp Pulse Pulse Pulse Resp BP BP 06/12/20 15:18 89 26 H 06/12/20 14:44 97 H 107/70 06/12/20 14:12 166 H 06/12/20 14:04 160 H 159/63 H 06/12/20 13:27 100/63 97/61 L 06/12/20 11:38 36.3 C L 100 H 24 98/64 L 06/12/20 10:41 117 H 06/12/20 07:42 111 H 36 H 06/12/20 07:18 36.3 C L 115 H 24 133/71 06/12/20 04:38 117 H 28 H 06/12/20 04:35 36.4 C L 112 H 18 123/74 Pulse Ox 06/12/20 15:18 95 06/12/20 14:44 94 06/12/20 14:12 06/12/20 14:04 93 06/12/20 13:27 06/12/20 11:38 96 06/12/20 10:41 06/12/20 07:42 95 06/12/20 07:18 95 06/12/20 04:38 91 06/12/20 04:35 94 Laboratory Results 06/12/20 06:35 06/12/20 06:35 Laboratory Tests 06/11/20 06/11/20 06/12/20 21:49 23:39 10:03 Lactate 3.6 H* 4.4 H* Procalcitonin 47.29 H Laboratory Tests 06/11/20 21:13 SARS-CoV-2, RNA, NAAT NEGATIVE 06/12/20 06:35 Troponin I 0.235 H* Diagnostic Findings SINGLE VIEW CHEST CLINICAL HISTORY: Hypoxia. FINDINGS: 2 AP, portable, upright chest radiographs are compared to study dated 06/11/2020. The examination is degraded by portable technique and patient rotation. The cardiomediastinal silhouette is unremarkable skeletal structures are osteopenic. The noting atherosclerotic calcification of the thoracic aorta. Emphysematous change is noted. There is dense right basilar airspace consolidation with a small right pleural effusion. The left lung appears clear. No pneumothorax is seen. The bony thorax is grossly intact. IMPRESSION: 1. Advanced emphysema. 2. Right basilar consolidation and a small right pleural effusion is similar to previous. The appearance is typical for pneumonia/aspiration pneumonitis. Radiographic follow-up to resolution is recommended. Electronically signed by: Alejandro Panda M.D. 06/12/2020 3:35 PM PG Care Time/CCT Total # of Minutes Spent Total Time Spent with Patient: Total time spent is greater than 50% in coordination of care (as documented) at patient's floor/unit and/or counseling patient: 60 [place] [address] Inpt Consult Level 5 Patient Type New Medical Decision Making High Complexity Diagnoses Sepsis with acute hypoxic respiratory failure A41.9; R65.20; J96.01 Pneumonia J18.9 Laterality: right Lung location: lower lobe of lung Pneumonia type: due to unspecified organism COPD (chronic obstructive pulmonary disease) J44.9 COPD type: unspecified COPD Ischemia of right lower extremity I99.8 Critical lower limb ischemia I70.229 Peripheral vascular disease I73.9 CAD (coronary artery disease) I25.118 Associated angina: with stable angina Coronary Disease-Associated Artery/Lesion type: [place] artery [place] vs. transplanted heart: [place] heart Atrial fibrillation with RVR I48.91 Chronic steroid use History of DC (myocardial infarction) I25.2 Emphysema of lung J43.1 Emphysema type: panlobular Cardiomyopathy, ischemic I25.5 DVT prophylaxis Z29.9 Time Spent (min) 60
--- NOTE | 2020-06-12 18:56 | Anesthesiology Consultation ---
Date of Service June 12, 2020 The patient has an elevated anesthetic risk at this time due to hypoxemic respiratory failure from pneumonia and COPD as well as sepsis. The risks and benefits of surgery will need to be weighed along with the patient's wishes be fore proceeding with surgery. Covid 19 negative on 06/11/20. Assessment & Plan (1) Encounter for pre-operative examination: Chart Review Chart Review: Pending: Refer to Additional Notes / Consult section Consults Requested The patient has an elevated anesthetic risk at this time. He will need to be reevaluated prior to surgery. History Height/Weight Height: 5 ft 7 in Weight: 56.2 kg Allergies Allergy/AdvReac Type Severity Reaction Status Date / Time clindamycin Allergy Unknown Unknown Verified 06/11/20 20:20 Penicillins Allergy Unknown Unknown Verified 06/11/20 20:20 Medications Home Medications Medication Instructions Recorded Confirmed Last Taken aspirin 81 mg tablet,delayed 81 mg PO DAILY 05/26/19 06/11/20 Unknown release atorvastatin 40 mg tablet 40 mg PO HS 05/26/19 06/11/20 Unknown ciclesonide 160 mcg/actuation 2 puffs INH BID 05/26/19 06/11/20 Unknown aerosol inhaler hydrochlorothiazide 12.5 mg tablet 12.5 mg PO DAILY 05/26/19 06/11/20 Unknown isosorbide mononitrate 30 mg 30 mg PO DAILY 05/26/19 06/11/20 Unknown tablet,extended release 24 hr lisinopril 5 mg tablet 5 mg PO DAILY 05/26/19 06/11/20 Unknown metoprolol succinate 25 mg 12.5 mg PO BID 05/26/19 06/11/20 Unknown tablet,extended release 24 hr montelukast 10 mg tablet 10 mg PO DAILY 05/26/19 06/11/20 Unknown nitroglycerin 0.4 mg sublingual 0.4 mg SL DAILY PRN 05/26/19 06/11/20 Unknown tablet prednisone 5 mg tablet 5 mg PO BID 05/26/19 06/11/20 Unknown ranolazine 500 mg tablet,extended 500 mg PO BID 05/26/19 06/11/20 Unknown release,12 hr umeclidinium 62.5 mcg-vilanterol 1 puffs INH DAILY 05/26/19 06/11/20 Unknown 25 mcg/actuation powdr for inhalation diclofenac sodium [Voltaren] 50 mg PO BID 06/11/20 06/11/20 Unknown levalbuterol tartrate [Xopenex HFA] 2 inh INHALATION QID PRN 06/11/20 06/11/20 Unknown Active Medications Generic Name Dose Route Start Last Admin Trade Name Freq PRN Reason Stop Dose Admin Aspirin 81 mg 06/12/20 09:00 06/12/20 07:58 Aspirin 81 Mg Ectab PO 07/12/20 08:59 81 mg DAILY LIZETT Administration Fluticasone Furoate 1 puffs 06/12/20 09:00 06/12/20 07:56 Fluticasone Furoate 200mcg 14 Puffs/Inhaler INH 07/12/20 08:59 1 puffs DAILY LIZETT Administration Hydrochlorothiazide 12.5 mg 06/12/20 09:00 06/12/20 07:58 Hydrochlorothiazide 25 Mg Tab PO 07/12/20 08:59 12.5 mg DAILY LIZETT Administration Metronidazole 500 mg in 100 mls @ 100 mls/hr 06/11/20 23:52 06/12/20 17:28 Flagyl IV 06/18/20 23:51 Infused Q8H LIZETT Infusion Cefepime HCl 2,000 mg in 20 mls @ 5 mls/min 06/12/20 12:00 06/12/20 11:08 Maxipime IV 06/19/20 11:59 5 mls/min Q12H LIZETT Administration Protocol Vancomycin HCl 750 mg/ Sodium 265 mls @ 200 mls/hr 06/12/20 10:00 06/12/20 11:08 Chloride IV 06/19/20 09:59 Infused Q12H LIZETT Infusion Acetaminophen 1,000 mg in 100 mls @ 400 mls/hr 06/12/20 08:11 06/12/20 09:02 Ofirmev IV 06/15/20 08:10 Infused Q8H PRN Infusion Pain or Fever Isosorbide Mononitrate 30 mg 06/12/20 09:00 06/12/20 07:59 Isosorbide [place] Extended Rel 30 Mg Tabcr PO 07/12/20 08:59 30 mg DAILY LIZETT Administration Levalbuterol HCl 0.63 mg 06/12/20 02:42 06/12/20 04:36 Levalbuterol Hcl 0.63 Mg/3 Ml Neb NEB 07/12/20 02:44 0.63 mg Q6H PRN Administration SOB/Wheezing/with mucomyst if needed Metoprolol Succinate 12.5 mg 06/12/20 09:00 06/12/20 07:58 Metoprolol Succ 25mg Ext Rel Tab PO 07/12/20 08:59 12.5 mg BID LIZETT Administration Montelukast Sodium 10 mg 06/12/20 09:00 06/12/20 07:58 Montelukast Sodium 10 Mg Tablet PO 07/12/20 08:59 10 mg DAILY LIZETT Administration Prednisone 5 mg 06/12/20 09:00 06/12/20 07:58 Prednisone 5 Mg Tab PO 07/12/20 08:59 5 mg BID LIZETT Administration Ranolazine 500 mg 06/12/20 09:00 06/12/20 07:58 Ranolazine 500 Mg Er Tab PO 07/12/20 08:59 500 mg BID LIZETT Administration Tramadol HCl 50 mg 06/12/20 09:45 06/12/20 10:20 Tramadol Hcl 50 Mg Tablet PO 07/12/20 09:44 50 mg Q4H PRN Administration Pain Umeclidinium/Vilanterol 1 puffs 06/12/20 09:00 06/12/20 07:57 Umeclidinium/Vilanterol 62.5/25mcg 7 Puffs/Inhaler INH 07/12/20 08:59 1 puffs DAILY LIZETT Administration Past Medical History Medical History AAA (abdominal aortic aneurysm) CAD (coronary artery disease) Cardiomyopathy, ischemic CHF (congestive heart failure) Chronic steroid use COPD (chronic obstructive pulmonary disease) Critical lower limb ischemia Dyslipidemia Emphysema of lung History of NM (myocardial infarction) Ischemia of right lower extremity Peripheral vascular disease Tobacco abuse Past Family History Family History Other Family history non-contributory Past Surgical History Surgical History History of percutaneous coronary intervention Hx of cardiac catheterization Social History Smoking Status: Unknown if ever smoked tobacco type: cigarettes Hx Alcohol Use: No Hx Substance Use: No Physical Exam Vital Signs Last Vital Signs Temp 36.3 C L 06/12/20 17:06 Pulse 84 02/08/21 17:06 Resp 26 H 06/12/20 15:18 BP 80/58 L 06/12/20 17:06 Pulse Ox 97 06/12/20 17:06 Testing Laboratory Results 06/12/20 06:35 06/12/20 06:35 Electrocardiogram Date: 06/11/20 Findings: + ST @ (117) pulmonary disease pattern Chest X-Ray Date: 06/12/20 SINGLE VIEW CHEST CLINICAL HISTORY: Hypoxia. FINDINGS: 2 AP, portable, upright chest radiographs are compared to study dated 06/11/2020. The examination is degraded by portable technique and patient rotation. The cardiomediastinal silhouette is unremarkable skeletal structures are osteopenic. The noting atherosclerotic calcification of the thoracic aorta. Emphysematous change is noted. There is dense right basilar airspace consolidation with a small right pleural effusion. The left lung appears clear. No pneumothorax is seen. The bony thorax is grossly intact. IMPRESSION: 1. Advanced emphysema. 2. Right basilar consolidation and a small right pleural effusion is similar to previous. The appearance is typical for pneumonia/aspiration pneumonitis. Radiographic follow-up to resolution is recommended. ACT 112: Negative or not required by law. Electronically signed by: Alejandro Panda M.D. 06/12/2020 3:35 PM Dictated: 06/12/201532Transcribed: 06/12/201532 Echocardiogram Date: 06/12/20 EF: 40-45 LV Function: dysfunctional RWMA: + hypokinetic (inferior wall) Other Findings: + RVH (moderate dilation), + LVH (moderate, concentric) and + diastolic dysfunction (grade 1) Valvular Disease: + MR (mild) mild TR
[2020-06-12] MEDS ORDERED: METOPROLOL TARTRATE 1 MG/ML VIAL IV PRN (19:08)
[2020-06-12] MEDS: ATORVASTATIN 40 MG TAB PO SCH (20:28)
[2020-06-13] MEDS: HYDROmorphone INJ 0.5 MG/0.5 ML SYR IV PRN ×4 (02:33→16:32)
--- NOTE | 2020-06-13 07:30 | Hospitalist Progress Note ---
Date of Service June 13, 2020 Assessment & Plan (1) Pneumonia: 75-year-old male with past medical history significant for CAD, HTN, HLD, extensive smoking history and COPD, hemorrhoids admitted for severe sepsis with acute hypoxic respiratory failure, with initial complaint of RLE pain with findings consistent with critical limb ischemia. Severe sepsis sec to right sided ?aspiration pneumonia/CAP: - COVID-19 testing negative. - Lactate elevated to 4.4 - WBC elevated at 33.08, up from 24.26 yesterday--he is clinically improving regardless and this may be 2/2 stress - CXR: "Extensive right lower lung consolidation suggestive of pneumonia. Emphysema." - Aorta w/Runoff CTA: "Extensive right middle lobe and right lower lobe consolidation. This is consistent with pneumonia." - Vanc & Flagyl discontinued today per pulmonology recs, continue on cefepime - Ordered speech therapy consult for swallowing evaluation: no issues swallowing - Pulmonology consult placed, follow recs: - Patient does have pneumonia of the right lower lobe consistent with aspiration. - Continue to treat pneumonia with antibiotics. Can discontinue vancomycin and metronidazole from a pulmonary perspective. - with underlying right side heart dysfunction - see echo results below Acute hypoxic respiratory failure: Acute hypoxic respiratory failure suspected to be multifactorial secondary to acute RLL pneumonia, fluid overload with likely reduced EF, baseline COPD with extensive smoking history. - On arrival with complaints of RLE pain, quickly started to develop shortness of breath requiring supplemental oxygen. - no baseline PFT available. - Did receive total of 2L NSS in the ER, - worsening shortness of breath at night - given Lasix for concern of fluid overload. - Received albumin with Lasix IV--no further Lasix will be given for now as he does not seem fluid overloaded at this point - requiring 25L O2 - transitioned to HFNC per pulm recs--maintaining O2 sat in mid-90s today Critical RLE ischemia: Aorta w/Runoff CTA: " Occlusion of the right common iliac, external iliac and internal iliac arteries with reconstitution at the level of the distal external iliac artery. Severe multifocal stenoses within the right superficial femoral artery with occlusion of the mid to distal aspect superficial femoral artery. No flow to the right foot. Right peroneal and posterior tibial arteries occluded just distal to vessel origins. Occlusion of the right anterior tibial artery at the level the distal shaft of the tibia. Occluded right dorsalis pedis. Vascular surgery consultation is recommended." - Patient has an anterior RLE nonhealing ulcer that the patient reports he has had for 2 years - Vascular surgery consult: - In view of the clinical findings of no motor function and lack of sensation of the right lower extremity, a right above knee amputation is recommended due to the severe occlusive disease seen on CT scan. - Would plan on later this week due to his respiratory condition. - Will consult anesthesia for pre op eval. - Would also consult cardiology due to his coronary history. - Cardiology consult: -- Based on the fact that he has survived his current illness and tolerated rapid A-Fib yesterday with rates in the 180's and without angina -- patient may proceed with surgery provided that he take his usual cardiac medications on the morning of surgery including metoprolol, ranolazine, and isosorbide mononitrate. - Palliative consult: - Best plan would be to maximize adjuvant analgesics. Will start gabapentin at HS. I would also recommend low dose methadone for NMDA receptor activity which is more responsive for neuropathic pain. EKG from 06/11 reviewed with QTc of 365. Both medications will likely need to be titrated over time to achieve therapeutic effect. Palliative care will follow. - Order placed for Tylenol as needed for pain - Dilaudid 0.5mg q3h prn per pulmonology - Gabapentin 100mg PO HS per palliative COPD/Emphysema with corpulmonale ( - Significant past smoking hx--1 PPD or greater since he was a teenager quit smoking 2 years ago in [facility] - Denies past history of PFTs - Continue home montelukast, prednisone 5 mg p.o. twice daily, Anoro Ellipta inhaler. - Levalbuterol and nebulizer treatment as needed - Pulm consulted, recommend above meds as well as f/u with pulmonary on discharge - echo with dilated RV and mild to moderate reduced systolic fxn. Atrial fibrillation - Received metoprolol tartrate 5mg IV x1 06/12 and pulse down to 80s - Back to NSR today - Continue metoprolol succinate 12.5mg PO BID - Hold anticoagulation per cardiology below - Continue to monitor on telemetry - Cardiology consult: -- Newly diagnosed A-Fib with RVR. -- Spontaneously converted back to a NSR following a dose of IV Lopressor. -- [id number] is 3 so anticoagulation is recommended. -- However, this is his only documented episode of A-Fib and it occurred during extenuating circumstances (ischemic leg, acute hypoxic respiratory failure, hypervolemia). -- Would continue to closely monitor heart rhythm, hold off on starting anticoagulation for now because of upcoming planned surgery and he's back in a NSR CAD/ CHF: - CAD s/p CA 4 years ago (attempted PCI, vessel ruptured, PCI aborted) concern of fluid overload after 2L given in ED - given lasix overnight. - TTE showing moderate RV dilation w/ mild to moderate reduction of systolic fxn. LV sys fxn mild to moderately reduced as well. EF 40-45%. Grade I diastolic dysfunction. Mild mitral and tricuspid regurg. - Continue isosorbide mononitrate, ranolazine, metoprolol, lisinopril - Hold aspirin in the setting of BRBPR - Lasix as needed for signs of fluid overload. - Cardiology consulted: -- Diurese as needed with IV Lasix if weight climbs or fluid retention. -- Keep SpO2 saturations above 94%. -- Monitor I&O's, body weights. -- Continue beta suzanna, long-acting nitrate, ranolazine, and ACEI. Rectal bleeding: - While in ER patient had a BM with small amount of bright red blood in stool. - Has a history of hemorrhoids, bleed likely secondary to this. - Hemoglobin stable at 12.3 - Will consider restarting ASA HLD: - Continue home atorvastatin HTN: - On arrival patient was acutely hypotensive to 80s/50s, with improvement in BP to 150s/80s with fluid resuscitation. - Continue home isosorbide mononitrate, metoprolol, HCTZ, lisinopril CODE STATUS: Full code FEN/GI: Heart healthy low-sodium diet DVT prophylaxis: SCDs, no AC for now per cardiology Dispo: Telemetry for continuous cardiac and oxygen monitoring in the setting of acute hypoxic respiratory failure and severe sepsis (2) Peripheral vascular disease: (3) Sepsis with acute hypoxic respiratory failure: (4) Critical lower limb ischemia: Admission and Anticipated Discharge Date Admission Date: June 11, 2020 Supervising Physician Co-Signing Physician Notes Resident Physician Supervision Note: I independently interviewed and examined the patient and verified the flynn history and physical, reviewed labs and image studies, discussed the case with the resident Dr. Mason and agree with the findings and care plan. Subjective No acute events overnight. Telemetry with NSR in 70s. Patient still reports pain but seems much more comfortable today. His breathing has improved and he does not seem to be struggling as much. His main focus still continues to be pain but he understands that as his breathing improves we may be able to optimize pain management and possible surgery for his leg. Denies CP, palpitations, n/v, abd pain, diarrhea, fever, chills. Review of Systems Review of Systems: All systems reviewed & are unremarkable except as noted in Subjective Physical Exam Physical Exam: GENERAL: A&Ox3. In pain. CHEST/LUNGS: Crackles at bases bilaterally. Breath sounds present in all lua. No accesory muscle use. No wheezes, no rales, no rhonchi. HEART: RRR. No m/g/r. No carotid bruits. ABDOMEN: NT/ND, soft. BS+ x4 EXTREMITIES: Right leg cold to touch. No sensation below knee. Very faint pedal pulse felt at RLE. No edema bilaterally. Results & Data Results & Data ([facility]) Vital Signs (Past 12 Hours) Vital Signs Temp Pulse Pulse Resp BP BP Pulse Ox 06/13/20 07:23 77 22 93 06/13/20 04:50 36.7 C 80 20 98/64 L 95 06/13/20 03:24 78 20 95 06/13/20 02:25 06/13/20 00:08 81 06/12/20 23:51 36.5 C 84 26 H 94/60 L 94 06/12/20 23:05 83 24 97 06/12/20 20:29 36.6 C 86 24 109/53 L 96 Pulse Ox 06/13/20 07:23 06/13/20 04:50 06/13/20 03:24 06/13/20 02:25 96 06/13/20 00:08 06/12/20 23:51 06/12/20 23:05 06/12/20 20:29 Resident Activity Tracking Resident Involvement: Resident Care Provided Care Provided: Adult [facility] Medicine (1) Pneumonia Laterality: right Lung location: lower lobe of lung Pneumonia type: due to unspecified organism Qualified Code(s): J18.9 - Pneumonia, unspecified organism
[2020-06-13] MEDS: MONTELUKAST SODIUM 10 MG TABLET PO SCH (08:16)
[2020-06-13] MEDS: predniSONE 5 MG TAB PO SCH ×2 (08:16→21:18)
[2020-06-13] MEDS: ASPIRIN 81 MG ECTAB PO SCH (08:18)
[2020-06-13] MEDS: RANOLAZINE 500 MG ER TAB PO SCH ×2 (08:18→21:18)
[2020-06-13] MEDS: hydroCHLOROthiazide 25 MG TAB PO SCH (08:18)
[2020-06-13] MEDS: UMECLIDINIUM/VILANTEROL 62.5/25MCG 7 PUFFS/INHALER INH SCH (08:19)
[2020-06-13] MEDS: FLUTICASONE FUROATE 200MCG 14 PUFFS/INHALER INH SCH (08:19)
[2020-06-13] MEDS: metroNIDAZOLE 500 MG/100 ML BAG IV SCH (08:19)
[2020-06-13] MEDS: ISOSORBIDE MONO EXTENDED REL 30 MG TABCR PO SCH (08:20)
--- NOTE | 2020-06-13 08:56 | Pulmonology Progress Note ---
Date of Service June 13, 2020 Assessment & Plan (1) Sepsis with acute hypoxic respiratory failure: Impression: This is a 75-year-old male that is an inmate at [facility]. He presented to emergency department with right lower extremity pain and found to have no pulse. He has history of peripheral vascular disease and peripheral artery disease and was seen in consultation by vascular team. He currently has hypoxia from sepsis and pneumonia. He also has new onset atrial fibrillation with rapid ventricular response this admission. 1. Hypoxemic respiratory failure: Patient now oxygenating well on high flow oxygen at 25 L/min with an FiO2 of 50%. Patient does have pneumonia of the right lower lobe consistent with aspiration. Blood cultures with no growth to date. No sputum production per patient. Arterial blood gas was collected 06/12/2020 showed a pH of 7.34, P CO2 of 32, HCO3 of 17. Patient is no longer us ing accessory muscles. Is no longer tachypneic. Continue to treat pneumonia with antibiotics. Can discontinue vancomycin and metronidazole from a pulmonary perspective. Continue to monitor on telemetry. Continue supportive care 2. COPD/emphysema: Continue Anoro Ellipta. He is also on chronic prednisone 5 mg p.o. twice daily. Continue for now. No need to increase as patient is not bronchospastic. In addition, he is also on bronchodilators via levalbuterol and nebulizer treatment as needed. Patient denies previous history of pulmonary function testing. 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 He quit smoking 2 years ago when the sn[facility] banned all tobacco products. Continue supportive care. Would recommend patient follow-up with pulmonary on discharge for pulmonary function testing. Until that point, continue to treat empirically. 3. Sepsis: Etiology appears to be pulmonary with right lower lobe pneumonia. Blood cultures x2 are negative. Procalcitonin and WBCs were both elevated. No new labs today. Continue with broad-spectrum antibiotics including gram-negative coverage for probable aspiration pneumonia. Patient afebrile. T-max this hospital stay is 37.0 C. Continue oxygen support to maintain an SaO2 between 88 and 92% secondary to patient's severe COPD and emphysema. 4. CAD: Patient has a slight elevation in troponin at 0.235 on 06/12/20 AM. This is most likely ischemic demand from his respiratory failure. Echocardiogram shows a preserved left ventricular ejection fraction. No significant ST changes on EKG. Telemetry reveals new onset atrial fibrillation with rapid ventricular response. Cardiology has been consulted. Patient did respond to IV Lopressor. Further management per cardiology 5. Atrial fibrillation with RVR: Continue with beta-suzanna per cardiology. Would consider heparin drip for anticoagulation not only for the atrial fibrillation with high ventricular rate but also for arterial obstruction in the lower extremity. I did discuss this with the resident team and will defer to them for further treatment. 6. Peripheral vascular disease/critical lower limb ischemia: Pedal pulses appreciated this morning on examination. These were also confirmed by nursing with Doppler. Patient reports surgery 3 years ago with failure. Since that time he reports he has had ongoing difficulty with peripheral obstruction. Vascular surgery has been consulted and will continue to follow the patient. Continue to Doppler lower extremities for pulse. Consider heparin drip. Further recommendations per vascular surgery. Regarding pain, Dilaudid 0.5 mg has been increased to every 3 hours as needed for pain. Discussed pain strategy with resident. He will further discuss with his attending. Will defer further pain management to primary team and vascular surgery. 7. Tobacco abuse: Patient with a history of tobacco abuse since his teenage years until 2 years ago. Severe COPD and emphysema as listed above. Patient has abstained from tobacco abuse for the last 2 years secondary to incarceration. 8. Resuscitation status: Lengthy discussion with the patient. He wishes to be a DNR/DNI. We will honor these wishes. I did tell the patient we will continue to treat his primary underlying symptoms of respiratory distress, hypoxia, ischemic limb. He specifically asked that no heroics were taken and does not wish to be intubated or on a ventilator. This was discussed with the residency team as well as with Dr. Perez. Palliative care has been consulted, look expectantly to the palliative care consult note. Thank you for including us in the care of this patient. Please refer to Dr. Perez's addendum and corrections. We will continue to follow the patient at this time from a pulmonary perspective. (2) Pneumonia: Laterality: right Lung location: lower lobe of lung Pneumonia type: due to unspecified organism Qualified Code(s): J18.9 - Pneumonia, unspecified organism (3) COPD (chronic obstructive pulmonary disease): COPD type: unspecified COPD Qualified Code(s): J44.9 - Chronic obstructive pulmonary disease, unspecified (4) Ischemia of right lower extremity: (5) Critical lower limb ischemia: (6) Peripheral vascular disease: (7) CAD (coronary artery disease): Associated angina: with stable angina Coronary Disease-Associated Artery/Lesion type: [place] artery [place] vs. transplanted heart: [place] heart Qualified Code(s): I25.118 - Atherosclerotic heart disease of [place] coronary artery with other forms of angina pectoris (8) Atrial fibrillation with RVR: (9) Chronic steroid use: (10) History of NC (myocardial infarction): (11) Emphysema of lung: Emphysema type: panlobular Qualified Code(s): J43.1 - Panlobular emphysema (12) Cardiomyopathy, ischemic: (13) DVT prophylaxis: Admission and Anticipated Discharge Date Admission Date: June 11, 2020 Supervising Physician Co-Signing Physician Notes Patient seen and examined. Discussed with pulmonary TANIYA. Agree with assessment and plan as noted. Patient is maintained on high flow oxygen. He is currently running 25 L/min and FiO2 0.5 with oxygen saturations in the mid Cultures are negative. Follow-up chest x-ray demonstrated stable left basilar airspace opacity. Cultures remain negative to date. Defer pain management and management of the patient's other medical issues to his admitting service. We will continue to follow for pulmonary issues. Subjective Attending: Dr. Perez Patient seen and examined at bedside. He is doing better today from a pulmonary standpoint regarding his respiratory failure. He is tolerating high flow oxygen delivery well. He currently is on 25 L/min with an FiO2 of 50%. He is able to breathe comfortably with his mouth closed. He has no evidence of respiratory distress today. Is no longer using accessory muscles. Respirations of the time of my visit are between 14 and 18 breaths/min. He continues to complain of severe right lower extremity pain and states that he also has pain from his neck to his toes. When asked to define where he has the worst pain confined to 6 inches, he denies any focal pain. He denies any fever or chills. He has no chest pain or tightness. He denies headache. He has no new acute complaints. Review of Systems Review of Systems: All systems reviewed & are unremarkable except as noted in Subjective Physical Exam Physical Exam: GENERAL : No acute distress. No conversational dyspnea EYES: No icterus, gaze conjugate NOSE: No evidence of epistaxis. High flow nasal cannula in place. Currently supported 25 L/min with an FiO2 of 50% MOUTH: No lesions or candidiasis NECK: Supple LUNGS: Breath sounds in all posterior lua today. There is evidence of coarse crackles at the bilateral bases. There is no appreciation of bronchospasm or rhonchi. No induced cough with deep inspiration.. No use of accessory muscles. HEART: Regular, rate controlled in the mid 80s ABDOMEN: Soft, NT, ND, BS Present EXTREMITIES: No LE edema, pedal pulses intact and equal bilaterally. Right lower extremity is cool to touch compared to left. Patient denies any sensitivity to touch or palpation of the right lower extremity. NEURO: A&OX3 Results & Data Results & Data ([facility]) Vital Signs (Past 12 Hours) Vital Signs Temp Pulse Pulse Resp BP Pulse Ox Pulse Ox 06/13/20 08:14 78 22 119/79 94 06/13/20 07:23 77 22 93 06/13/20 04:50 36.7 C 80 20 98/64 L 95 06/13/20 03:24 78 20 95 06/13/20 02:25 96 06/13/20 00:08 81 06/12/20 23:51 36.5 C 84 26 H 94/60 L 94 06/12/20 23:05 83 24 97 Laboratory Results 06/12/20 06:35 06/12/20 06:35 Please note that these labs are from yesterday. There were no new labs ordered today. Diagnostic Findings No new diagnostic imaging since 06/12/2020 PG Care Time/CCT Total # of Minutes Spent Total Time Spent with Patient: Total time spent is greater than 50% in coordin ation of care (as documented) at patient's floor/unit and/or counseling patient: 25 minutes Coding Level of Care Code 66939 Subseq Hosp Care Lvl 3 Medical Decision Making High Complexity Diagnoses Sepsis with acute hypoxic respiratory failure A41.9; R65.20; J96.01 Pneumonia J18.9 Laterality: right Lung location: lower lobe of lung Pneumonia type: due to unspecified organism COPD (chronic obstructive pulmonary disease) J44.9 COPD type: unspecified COPD Ischemia of right lower extremity I99.8 Critical lower limb ischemia I70.229 Peripheral vascular disease I73.9 CAD (coronary artery disease) I25.118 Associated angina: with stable angina Coronary Disease-Associated Artery/Lesion type: [place] artery [place] vs. transplanted heart: [place] heart Atrial fibrillation with RVR I48.91 Chronic steroid use History of NC (myocardial infarction) I25.2 Emphysema of lung J43.1 Emphysema type: panlobular Cardiomyopathy, ischemic I25.5 DVT prophylaxis Z29.9 Time Spent (min) 25
[2020-06-13] MEDS: METOPROLOL SUCC 25MG EXT REL TAB PO SCH ×2 (09:06→21:18)
[2020-06-13] MEDS ORDERED: VANCOMYCIN TROUGH ONE (09:30)
--- NOTE | 2020-06-13 09:51 | Cardiology Progress Note ---
Date of Service June 13, 2020 Assessment & Plan (1) CAD (coronary artery disease): Mr. Lomeli is a 75 year old male inmate with COPD, CAD s/p PR 4 years ago (attempted PCI, vessel ruptured, PCI aborted), Ischemic Cardiomyopathy (LVEF 40% to 45%, global hypokinesis, severe inferior hypokinesis), Infrarenal AAA, Extensive Aorto-iliac and Peripheral Arterial Disease, Dyslipidemia, who presented to [facility] ER last evening with ischemic right leg pain, which has been progressive. He admitted to feeling more short of breath over the last several days. Patient was not visibly short of breath on presentation. However he subsequently developed shortness of breath/appeared to be working harder to breathe, was hypotensive, and he was tachypneic. Chest x-ray and CT scan suggested multifocal pneumonia and he had an elevated lactate level with leukocytosis consistent with sepsis. Sepsis protocol was initiated and patient received 1.5 L bolus of IV NSS in the emergency room due to hypotension on arrival. His SARS CoV 2 testing is negative. He is currently being treated for pneumonia of the right lung and acute hypoxic respiratory failure. His primary complaint remains ongoing ischemic leg and foot pain. Dr. Her is planning on performing a Right AKA later this week if his respiratory status allows. His Troponin I is elevated and consistent with demand ischemia, and his Pro-BNP is elevated. Echocardiogram done earlier today. He appears to have a component of combined systolic and diastolic CHF and a dilated RV with elevated pressure/volume overload. According to his I&O's he has had a positive fluid balance of 3.675 L, but his body weight is down 3.5 Kg since being admitted. Fluid status appears to be euvolemic. Recommend the following: -- Diurese as needed with IV Lasix if weight climbs or fluid retention. -- Keep SpO2 saturations above 94%. -- Monitor I&O's, body weights. -- Continue beta suzanna, long-acting nitrate, ranolazine, and ACEI. (2) Cardiomyopathy, ischemic: ECHOCARDIOGRAM 06/11/2020 shows: -- Overall global hypokinesis with severe inferior hypokinesis (consistent with prior infarct). -- LVEF approximately 40% to 45%. -- Moderately dilated RV, with evidence of RV pressure/volume overload. -- Mild MR. -- LV diastolic dysfunction is present. -- Management as outlined above. -- Obtain cardiac catheterization report, any cardiac imaging, and Cardiology reports regarding his PR 4 years ago -- still waiting for these reports. (3) Ischemia of right lower extremity: -- Ischemic right lower extremity with extensive aorto-iliac and right SFA disease. -- He has an ischemic wound on his right anterolateral leg x several months. -- Plan is to do a right AKA later if his pulmonary status continues to improve. -- Optimize volume status, aggressively treat underlying pneumonia/COPD. -- Maintain appropriate O2 saturations. -- Based on the fact that he has survived his current illness and tolerated rapid A-Fib yesterday with rates in the 180's and without angina -- patient may proceed with surgery provided that he take his usual cardiac medications on the morning of surgery including metoprolol, ranolazine, and isosorbide mononitrate. (4) Sepsis with acute hypoxic respiratory failure: -- As per attending hospitalist and pulmonology teams. -- Patient is clinically improving. (5) Atrial fibrillation with RVR: -- Newly diagnosed A-Fib with RVR. -- Spontaneously converted back to a NSR following a dose of IV Lopressor. -- [id number] is 3 so anticoagulation is recommended. -- However, this is his only documented episode of A-Fib and it occurred during extenuating circumstances (ischemic leg, acute hypoxic respiratory failure, hypervolemia). -- Would continue to closely monitor heart rhythm, hold off on starting anticoagulation for now because of upcoming planned surgery and he's back in a NSR. Admission and Anticipated Discharge Date Admission Date: June 11, 2020 Subjective Mr. Lomeli appears to be doing better today, his breathing is less labored and his supplemental O2 demands are less. He is currently on Hi-flow O2 at 7/L/min, SpO2 saturations have ranged between 93% to 97% since last night. Patient had an episode of A-Fib with RVR yesterday. He was given IV Lopressor and subsequently and spontaneously converted back to a NSR. No prior history of A- Fib. Otherwise, he continues to complain of ischemic lower extremity pain. Dilaudid has helped. According to his I&O's he has had a positive fluid balance of 3.675 L, but his body weight is down 3.5 Kg since being admitted. Patient denies any chest pain, heaviness, tightness, pressure, or any angina pectoris. No neck, jaw, back, or arm discomfort. Review of Systems Review of Systems: All systems reviewed & are unremarkable except as noted in Subjective Physical Exam Physical Exam: GENERAL: Patient is tachypneic, oxy-mask is in place on 10 L/min. HEENT: Head is atraumatic, normocephalic. EOM's intact. Facies symmetric. No perioral cyanosis. NECK: No JVD. JVP is not elevated. Carotid upstrokes are + 2 bilaterally. CHEST/LUNGS: Rales present in the right lower lung field, otherwise diminished breath sounds throughout. CVS: S1 and S2 are regular at 80 bpm. No obvious murmurs, gallops, or rubs. PMI is nondisplaced. No lifts, heaves, or thrills. No abdominal aortic or renal bruits. ABDOMINAL EXAM: Bowel sounds are present. No masses, organomegaly, or tenderness. EXTREMITIES: No clubbing or cyanosis. No edema. Right leg is cold to the touch. I could not palpate a pulse in his right foot. NEUROLOGIC EXAM: Patient is awake, alert, and oriented. Answers questions appropriately. Speech is clear. Normal movement in all 4 extremities. ECHOCARDIOGRAM 06/12/2020: -- Overall global hypokinesis with severe inferior hypokinesis (consistent with prior infarct). -- LVEF approximately 40% to 45%. -- Moderately dilated RV, with evidence of RV pressure/volume overload. -- Mild MR. -- LV diastolic dysfunction is present. -- See formal report. TELEMETRY: -- Normal sinus rhythm. -- Episode of A-Fib with RVR yesterday. Results & Data ([facility]) Vital Signs (Past 12 Hours) Vital Signs Temp Pulse Pulse Resp BP Pulse Ox Pulse Ox 06/13/20 08:14 78 22 119/79 94 06/13/20 07:23 77 22 93 06/13/20 04:50 36.7 C 80 20 98/64 L 95 06/13/20 03:24 78 20 95 06/13/20 02:25 96 06/13/20 00:08 81 06/12/20 23:51 36.5 C 84 26 H 94/60 L 94 06/12/20 23:05 83 24 97 Laboratory Results Laboratory Results - last 24 hr 06/12/20 06/12/20 06/13/20 10:03 10:03 09:47 WBC RBC Hgb Hct MCV MCH MCHC Plt Count ABG pH 7.34 L ABG pCO2 32 L ABG pO2 93 ABG HCO3 17 L ABG O2 Saturation 97.1 H ABG Base Excess -8.0 Hernandez Test Pos Barometric Pressure 741.3 Oxygen Given 15 L Sodium Potassium Chloride Carbon Dioxide Anion Gap BUN Creatinine Est Cr Clr Drug Dosing Est GFR ( Amer) Est GFR (Non-Af Amer) BUN/Creatinine Ratio Glucose Calcium Procalcitonin 47.29 H Vancomycin Trough Pending 06/13/20 06/13/20 09:47 09:47 WBC Pending RBC Pending Hgb Pending Hct Pending MCV Pending MCH Pending MCHC Pending Plt Count Pending ABG pH ABG pCO2 ABG pO2 ABG HCO3 ABG O2 Saturation ABG Base Excess Hernandez Test Barometric Pressure Oxygen Given Sodium Pending Potassium Pending Chloride Pending Carbon Dioxide Pending Anion Gap Pending BUN Pending Creatinine Pending Est Cr Clr Drug Dosing Pending Est GFR ( Amer) Pending Est GFR (Non-Af Amer) Pending BUN/Creatinine Ratio Pending Glucose Pending Calcium Pending Procalcitonin Vancomycin Trough Diagnostic Findings CXR 06/12/2020: 1. Advanced emphysema. 2. Right basilar consolidation and a small right pleural effusion is similar to previous. The appearance is typical for pneumonia/aspiration pneumonitis. 3. Radiographic follow-up to resolution is recommended. Medications Administered Aspirin (Aspirin 81 Mg Ectab) 81 mg PO DAILY LIZETT Stop: 07/12/20 08:59 Last Admin: 06/13/20 08:18 Dose: 81 mg Documented by: [id number] Admin: 06/12/20 07:58 Dose: 81 mg Documented by: [id number] Atorvastatin Calcium (Atorvastatin 40 Mg Tab) 40 mg PO HS LIZETT Stop: 07/12/20 20:59 Last Admin: 06/12/20 20:28 Dose: 40 mg Documented by: [id number] Fluticasone Furoate (Fluticasone Furoate 200mcg 14 Puffs/Inhaler) 1 puffs INH DAILY LIZETT Stop: 07/12/20 08:59 Last Admin: 06/13/20 08:19 Dose: 1 puffs Documented by: [id number] Admin: 06/12/20 07:56 Dose: 1 puffs Documented by: [id number] Hydrochlorothiazide (Hydrochlorothiazide 25 Mg Tab) 12.5 mg PO DAILY [facility] Stop: 07/12/20 08:59 Last Admin: 06/13/20 08:18 Dose: 12.5 mg Documented by: [id number] Admin: 06/12/20 07:58 Dose: 12.5 mg Documented by: [id number] Metronidazole (Flagyl) 500 mg in 100 mls @ 100 mls/hr IV Q8H [facility] Stop: 06/18/20 23:51 Last Admin: 06/13/20 08:19 Dose: 100 mls/hr Documented by: [id number] Infusion: 06/13/20 00:40 Dose: 0 mls/hr Documented by: [id number] Admin: 06/12/20 23:18 Dose: 100 mls/hr Documented by: [id number] Infusion: 06/12/20 17:28 Dose: 0 mls/hr Documented by: [id number] Admin: 06/12/20 16:24 Dose: 100 mls/hr Documented by: [id number] Infusion: 06/12/20 09:02 Dose: 0 mls/hr Documented by: [id number] Admin: 06/12/20 07:56 Dose: 100 mls/hr Documented by: [id number] Infusion: 06/12/20 02:04 Dose: 0 mls/hr Documented by: [id number] Admin: 06/12/20 00:53 Dose: 100 mls/hr Documented by: [id number] Cefepime HCl (Maxipime) 2,000 mg in 20 mls @ 5 mls/min IV Q12H [facility]; Protocol Stop: 06/19/20 11:59 Last Admin: 06/12/20 23:18 Dose: 5 mls/min Documented by: [id number] Admin: 06/12/20 11:08 Dose: 5 mls/min Documented by: [id number] Vancomycin HCl 750 mg/ Sodium (Chloride) 265 mls @ 200 mls/hr IV Q12H [facility] Stop: 06/19/20 09:59 Last Infusion: 06/12/20 23:28 Dose: 0 mls/hr Documented by: [id number] Admin: 06/12/20 21:59 Dose: 200 mls/hr Documented by: [id number] Infusion: 06/12/20 11:08 Dose: 0 mls/hr Documented by: [id number] Admin: 06/12/20 09:32 Dose: 200 mls/hr Documented by: [id number] Acetaminophen (Ofirmev) 1,000 mg in 100 mls @ 400 mls/hr IV Q8H PRN PRN Reason: Pain or Fever Stop: 06/15/20 08:10 Last Infusion: 06/12/20 09:02 Dose: 0 mls/hr Documented by: [id number] Admin: 06/12/20 08:39 Dose: 400 mls/hr Documented by: [id number] Isosorbide Mononitrate (Isosorbide [place] Extended Rel 30 Mg Tabcr) 30 mg PO RUTHANN Y [facility] Stop: 07/12/20 08:59 Last Admin: 06/13/20 08:20 Dose: 30 mg Documented by: [id number] Admin: 06/12/20 07:59 Dose: 30 mg Documented by: [id number] Levalbuterol HCl (Levalbuterol Hcl 0.63 Mg/3 Ml Neb) 0.63 mg NEB Q6H PRN PRN Reason: SOB/Wheezing/with mucomyst if needed Stop: 07/12/20 02:44 Last Admin: 06/12/20 04:36 Dose: 0.63 mg Documented by: [id number] Metoprolol Succinate (Metoprolol Succ 25mg Ext Rel Tab) 12.5 mg PO BID [facility] Stop: 07/12/20 08:59 Last Admin: 06/13/20 09:06 Dose: 12.5 mg Documented by: [id number] Admin: 06/12/20 20:29 Dose: 12.5 mg Documented by: [id number] Admin: 06/12/20 07:58 Dose: 12.5 mg Documented by: [id number] Montelukast Sodium (Montelukast Sodium 10 Mg Tablet) 10 mg PO DAILY [facility] Stop: 07/12/20 08:59 Last Admin: 06/13/20 08:16 Dose: 10 mg Documented by: [id number] Admin: 06/12/20 07:58 Dose: 10 mg Documented by: [id number] Prednisone (Prednisone 5 Mg Tab) 5 mg PO BID [facility] Stop: 07/12/20 08:59 Last Admin: 06/13/20 08:16 Dose: 5 mg Documented by: [id number] Admin: 06/12/20 20:28 Dose: 5 mg Documented by: [id number] Admin: 06/12/20 07:58 Dose: 5 mg Documented by: [id number] Ranolazine (Ranolazine 500 Mg Er Tab) 500 mg PO BID LIZETT Stop: 07/12/20 08:59 Last Admin: 06/13/20 08:18 Dose: 500 mg Documented by: [id number] Admin: 06/12/20 20:29 Dose: 500 mg Documented by: [id number] Admin: 06/12/20 07:58 Dose: 500 mg Documented by: [id number] Tramadol HCl (Tramadol Hcl 50 Mg Tablet) 50 mg PO Q4H PRN PRN Reason: Pain Stop: 07/12/20 09:44 Last Admin: 06/12/20 23:16 Dose: 50 mg Documented by: [id number] Admin: 06/12/20 10:20 Dose: 50 mg Documented by: [id number] Umeclidinium/Vilanterol (Umeclidinium/Vilanterol 62.5/25mcg 7 Puffs/Inhaler) 1 puffs INH DAILY [facility] Stop: 07/12/20 08:59 Last Admin: 06/13/20 08:19 Dose: 1 puffs Documented by: [id number] Admin: 06/12/20 07:57 Dose: 1 puffs Documented by: [id number] PG Care Time/CCT Total # of Minutes Spent Total Time Spent with Patient: Total time spent is greater than 50% in coordination of care (as documented) at patient's floor/unit and/or counseling patient: Coding Level of Care Code 30733 Subseq Hosp Care Lvl 3 Diagnoses CAD (coronary artery disease) I25.118 Coronary Disease-Associated Artery/Lesion type: level[place] artery [place] vs. transplanted heart: levelock heart Associated angina: with stable angina Cardiomyopathy, ischemic I25.5 Ischemia of right lower extremity I99.8 Sepsis with acute hypoxic respiratory failure A41.9; R65.20; J96.01 Atrial fibrillation with RVR I48.91 (1) CAD (coronary artery disease) Coronary Disease-Associated Artery/Lesion type: level[place] artery [place] vs. transplanted heart: levelock heart Associated angina: with stable angina Qualified Code(s): I25.118 - Atherosclerotic heart disease of levelock coronary artery with other forms of angina pectoris
--- NOTE | 2020-06-13 10:03 | Palliative Care Consultation ---
Date of Consultation June 13, 2020 Assessment & Plan (1) Neuropathic pain: Right lower extremity related to ischemia. He has had hydromorphone but reports that he continues to have 10/10 pain. Best plan would be to maximize adjuvant analgesics. Will start gabapentin at HS. I would also recommend low dose methadone for NMDA receptor activity which is more responsive for neuropathic pain. EKG from 06/11 reviewed with QTc of 365. Both medications will likely need to be titrated over time to achieve therapeutic effect. Palliative care will follow. (2) Ischemia of right lower extremity: (3) Palliative care encounter: He has stated that he would not want resuscitation. I asked him if he has any worries or concerns and he denied these. He confirms that he would not want CPR or intubation if indicated. He recognizes that with his current comorbidities, the likelihood of successful resuscitation is virtually nil and would prefer to allow a natural . (4) COPD (chronic obstructive pulmonary disease): COPD type: unspecified COPD Qualified Code(s): J44.9 - Chronic obstructive pulmonary disease, unspecified (5) CHF (congestive heart failure): (6) Atrial fibrillation with RVR: (7) Sepsis with acute hypoxic respiratory failure: History of Present Illness Reason for Consultation: pain management, goals of care Requesting Physician: Dr. Patel Attending Physician: Eli Ladd MD History of Present Illness 75 yo gentleman with history of CAD, COPD and PVD who was admitted with acute hypoxic respiratory failure related to pneumonia and sepsis with some initial fluid volume overload, as well as right lower extremity ischemia. He has occlusion of right common iliac and multifocal stenosis of right superficial femoral arteries. He has no patent circulation below the knee in his right lower extremity. He c/o severe pain 10/10 in right leg on the inside and numbness on the outside. He describes the pain as aching and constant. He has had limited mobility due to pain. He is noted to have afib and mixed systolic and diastolic heart failure. Despite his vasculopathy, he appears to have re latively normal renal function. We have been consulted to assist with pain management and goals of care. Allergies Allergy/AdvReac Type Severity Reaction Status Date / Time clindamycin Allergy Unknown Unknown Verified 06/11/20 20:20 Penicillins Allergy Unknown Unknown Verified 06/11/20 20:20 Home Medications Medication Instructions Recorded Confirmed Type aspirin 81 mg tablet,delayed 81 mg PO DAILY 05/26/19 06/11/20 History release atorvastatin 40 mg tablet 40 mg PO HS 05/26/19 06/11/20 History ciclesonide 160 mcg/actuation 2 puffs INH BID 05/26/19 06/11/20 History aerosol inhaler hydrochlorothiazide 12.5 mg tablet 12.5 mg PO DAILY 05/26/19 06/11/20 History isosorbide mononitrate 30 mg 30 mg PO DAILY 05/26/19 06/11/20 History tablet,extended release 24 hr lisinopril 5 mg tablet 5 mg PO DAILY 05/26/19 06/11/20 History metoprolol succinate 25 mg 12.5 mg PO BID 05/26/19 06/11/20 History tablet,extended release 24 hr montelukast 10 mg tablet 10 mg PO DAILY 05/26/19 06/11/20 History nitroglycerin 0.4 mg sublingual 0.4 mg SL DAILY PRN 05/26/19 06/11/20 History tablet prednisone 5 mg tablet 5 mg PO BID 05/26/19 06/11/20 History ranolazine 500 mg tablet,extended 500 mg PO BID 05/26/19 06/11/20 History release,12 hr umeclidinium 62.5 mcg-vilanterol 1 puffs INH DAILY 05/26/19 06/11/20 History 25 mcg/actuation powdr for inhalation diclofenac sodium [Voltaren] 50 mg PO BID 06/11/20 06/11/20 History levalbuterol tartrate [Xopenex HFA] 2 inh INHALATION QID PRN 06/11/20 06/11/20 History Patient History Medical History AAA (abdominal aortic aneurysm) CAD (coronary artery disease) Cardiomyopathy, ischemic CHF (congestive heart failure) Chronic steroid use COPD (chronic obstructive pulmonary disease) Critical lower limb ischemia Dyslipidemia Emphysema of lung History of OR (myocardial infarction) Ischemia of right lower extremity Peripheral vascular disease Tobacco abuse Surgical History History of percutaneous coronary intervention Hx of cardiac catheterization Family History Other Family history non-contributory Social History Smoking Status: Unknown if ever smoked Tobacco Type: Cigarettes Age Started Using Tobacco: 18; packs per day: 1; Number of Years Since Quit: 2; Hx Alcohol Use: No Hx Substance Use: No Preferred Language: Khmer Communication Ability: Effective Card Dealer Required: No marital status: / Current Living Situation: Other Current Living Situation Comment: [facility] How many Children do You have: 1 Feels Safe at Home: Yes Assistive Devices: Oxygen - Continuous Review of Systems Review of Systems: [place] Symptom Assessment Scale Pain3/3 Nausea 1/3 Dyspnea 2/3 Fatigue 2/3 Anorexia 2/3 Drowsiness 1/3 Palliative Performance Score 40% Physical Exam Constitutional: + thin and + frail appearing; no acute distress ENMT: Mouth: + dry oral mucous membranes Respiratory: + labored breathing and + uses accessory muscles Cardiovascular: Rate/Rhythm: regular rate and regular rhythm Extremities: no edema right lower extremity mottled and cool to touch from above knee to foot Gastrointestinal (Abdomen): Inspection/Auscultation: abdomen not distended Percussion/Palpation: abdomen nontender Musculoskeletal: Extremities: + muscle atrophy Neurologic: moves all extremities and awake; not confused Psychiatric: Orientation: alert and oriented x 3 Results & Data ([facility]) Vital Signs (Past 12 Hours) Vital Signs Temp Pulse Pulse Resp BP Pulse Ox Pulse Ox 06/13/20 08:14 78 22 119/79 94 06/13/20 07:23 77 22 93 06/13/20 04:50 98.1 F 80 20 98/64 L 95 06/13/20 03:24 78 20 95 06/13/20 02:25 96 06/13/20 00:08 81 06/12/20 23:51 97.7 F 84 26 H 94/60 L 94 06/12/20 23:05 83 24 97 PG Care Time/CCT Total # of Minutes Spent Total Time Spent with Patient: Total time spent is greater than 50% in coordination of care (as documented) at patient's floor/unit and/or counseling patient: total time spent 70 minutes with more than 50% of time spent on symptom management and goals of care. Coding Level of Care Code 69941 Inpt Consult Level 4 Diagnoses Neuropathic pain M79.2 Ischemia of right lower extremity I99.8 Palliative care encounter Z51.5 COPD (chronic obstructive pulmonary disease) J44.9 COPD type: unspecified COPD CHF (congestive heart failure) I50.9 Atrial fibrillation with RVR I48.91 Sepsis with acute hypoxic respiratory failure A41.9; R65.20; J96.01
[2020-06-13] MEDS: VANCOMYCIN HCL 750 MG in SODIUM CHLORIDE 0.9% 250 ML IV SCH (10:19)
[2020-06-13 10:22] LABS: BUN Creatinine Ratio 33.2 (10-20); Creatinine Clr Calc Pharmacy 53.3 ml/min; Est GFR (African American) 95.3; Est GFR (Non-African American) 82.2; Potassium 4.3 mmol/L (3.5-5.1)
[2020-06-13 10:26] LABS: Acanthocytes 1+; Hematocrit (blood only) 35.7 % (42-52); Hemoglobin 12.3 g/dL (14.0-18.0); Mean Corpuscular Hemoglobin 31.5 pg (25-34); Mean Corpuscular Hgb Conc 34.5 g/dL (32-36); Mean Corpuscular Volume 91.5 fL (80-100); Mean Platelet Volume 13.3 fL (7.4-10.4); Platelet Count 115 K/uL (130-400); Platelet Estimate Decreased (Normal); RDW Coefficient of Variation 14.9 % (11.5-14.5); RDW Standard Deviation 49.9 fL (36.4-46.3); Toxic Vacuolation 1+; White Blood Count 33.08 K/uL (4.8-10.8)
[2020-06-13 10:27] LABS: ALC (manual) 0.99 K/uL (1.2-3.4); Lymphocytes # (manual) 0.99 K/uL (1.2-3.4); Monocytes # (manual) 1.98 K/uL (0.11-0.59)
--- NOTE | 2020-06-13 11:17 | Pharmacy Report ---
Pharmacy Abx Dose Short Note - Date of Service June 13, 2020 - Assessment & Plan Assessment 75 year old M receiving Vancomycin + Cefepime + Metronidazole for treatment of aspiration pneumonia. * Day #3 of antimicrobial therapy * Afebrile. Leukocytosis worsened today (18k--24k--33k). Renal fxn stable. He is now on HFNC at 25 L/min. Procalcitonin was 47.29. * Pulmonology consulted and okay with discontinuation of vancomycin and metronidazole from their perspective. Will discuss with attending. Plan Vancomycin * Trough level of 12.0 mcg/mL is subtherapeutic * Change to 1000 mg IV every 12 hours * Goal trough level: 15 to 20 mcg/mL * Trough level ordered for: 06/15/20 Pharmacy will continue to follow and will adjust dose/frequency as necessary. Thank you.
[2020-06-13] MEDS: CEFEPIME 2,000 MG/20 ML VIAL IV SCH (11:39)
[2020-06-13] MEDS ORDERED: VANCOMYCIN HCL 250 MG in 0.9 % SODIUM CHLORIDE 100 ML IV ONE (11:40)
[2020-06-13] MEDS: GABAPENTIN 100 MG CAP PO SCH (21:18)
[2020-06-13] MEDS: METHADONE HCL 5 MG TAB PO SCH (21:18)
[2020-06-13] MEDS: ATORVASTATIN 40 MG TAB PO SCH (21:18)
[2020-06-13] MEDS ORDERED: VANCOMYCIN HCL 1,000 MG in SODIUM CHLORIDE 0.9% 250 ML IV SCH (22:00)
[2020-06-14] MEDS: CEFEPIME 2,000 MG/20 ML VIAL IV SCH (00:40)
--- NOTE | 2020-06-14 07:13 | Hospitalist Progress Note ---
Date of Service June 14, 2020 Assessment & Plan (1) Pneumonia: 75-year-old male with past medical history significant for CAD, HTN, HLD, extensive smoking history and COPD, hemorrhoids admitted for severe sepsis with acute hypoxic respiratory failure, with initial complaint of RLE pain with findings consistent with critical limb ischemia. Severe sepsis sec to right sided ?aspiration pneumonia/CAP: - COVID-19 testing negative. - Lactate elevated to 4.4 - WBC elevated at 33.08, up from 24.26 yesterday--he is clinically improving regardless and this may be 2/2 stress - CXR: "Extensive right lower lung consolidation suggestive of pneumonia. Emphysema." - Aorta w/Runoff CTA: "Extensive right middle lobe and right lower lobe consolidation. This is consistent with pneumonia." - Vanc & Flagyl discontinued today per pulmonology recs, continue on cefepime - Ordered speech therapy consult for swallowing evaluation: no issues swallowing - Pulmonology consult placed, follow recs: - Patient does have pneumonia of the right lower lobe consistent with aspiration. - Continue to treat pneumonia with antibiotics. Can discontinue vancomycin and metronidazole from a pulmonary perspective. - with underlying right side heart dysfunction - see echo results below Acute hypoxic respiratory failure: Acute hypoxic respiratory failure suspected to be multifactorial secondary to acute RLL pneumonia, fluid overload with likely reduced EF, baseline COPD with extensive smoking history. - On arrival with complaints of RLE pain, quickly started to develop shortness of breath requiring supplemental oxygen. - no baseline PFT available. - Did receive total of 2L NSS in the ER, - worsening shortness of breath at night - given Lasix for concern of fluid overload. - Received albumin with Lasix IV--no further Lasix will be given for now as he does not seem fluid overloaded at this point - requiring 25L O2 - transitioned to HFNC per pulm recs--maintaining O2 sat in mid-90s today Critical RLE ischemia: Aorta w/Runoff CTA: " Occlusion of the right common iliac, external iliac and internal iliac arteries with reconstitution at the level of the distal external iliac artery. Severe multifocal stenoses within the right superficial femoral artery with occlusion of the mid to distal aspect superficial femoral artery. No flow to the right foot. Right peroneal and posterior tibial arteries occluded just distal to vessel origins. Occlusion of the right anterior tibial artery at the level the distal shaft of the tibia. Occluded right dorsalis pedis. Vascular surgery consultation is recommended." - Patient has an anterior RLE nonhealing ulcer that the patient reports he has had for 2 years - Vascular surgery consult: - Will plan on right AKA on 06/16 - Cardiology consult: -- Based on the fact that he has survived his current illness and tolerated rapid A-Fib yesterday with rates in the 180's and without angina -- patient may proceed with surgery provided that he take his usual cardiac medications on the morning of surgery including metoprolol, ranolazine, and isosorbide mononitrate. - Palliative consult: Improvement with methadone and gabapentin. Monitor for sedation. Though both are at very low doses, may need to hold methadone if lethargic, given long half life. Continue prn IV Dilaudid. - Order placed for Tylenol as needed for pain - Dilaudid 0.5mg q3h prn per pulmonology - Gabapentin 100mg PO HS per palliative - Methadone 2.5 mg PO BID - DVT ppx with lovenox 40mg SQ daily COPD/Emphysema with cor pulmonale - Significant past smoking hx--1 PPD or greater since he was a teenager quit smoking 2 years ago in [facility] - No record of PFTs - Continue home montelukast, prednisone 5 mg p.o. twice daily, Anoro Ellipta inhaler. - Levalbuterol and nebulizer treatment as needed - Pulm consulted, recommend above meds as well as f/u with pulmonary on discharge - echo with dilated RV and mild to moderate reduced systolic fxn. Atrial fibrillation - Received metoprolol tartrate 5mg IV x1 06/12 and pulse down to 80s - Back to NSR today - Continue metoprolol succinate 12.5mg PO BID - Hold anticoagulation per cardiology below - Continue to monitor on telemetry - Cardiology consult: -- Newly diagnosed A-Fib with RVR. -- Spontaneously converted back to a NSR following a dose of IV Lopressor. -- [id number] is 3 so anticoagulation is recommended. -- However, this is his only documented episode of A-Fib and it occurred during extenuating circumstances (ischemic leg, acute hypoxic respiratory failure, hypervolemia). -- Would continue to closely monitor heart rhythm, hold off on starting anticoagulation for now because of upcoming planned surgery and he's back in a NSR CAD/ chronic systolic CHF: - CAD s/p [place] 4 years ago (attempted PCI, vessel ruptured, PCI aborted) concern of fluid overload after 2L given in ED - given lasix overnight. - TTE showing moderate RV dilation w/ mild to moderate reduction of systolic fxn. LV sys fxn mild to moderately reduced as well. EF 40-45%. Grade I diastolic dysfunction. Mild mitral and tricuspid regurg. - Continue isosorbide mononitrate, ranolazine, metoprolol, lisinopril - Hold aspirin in the setting of BRBPR - Lasix as needed for signs of fluid overload. - Cardiology consulted: -- Diurese as needed with IV Lasix if weight climbs or fluid retention. -- Keep SpO2 saturations above 94%. -- Monitor I&O's, body weights. -- Continue beta suzanna, long-acting nitrate, ranolazine, and ACEI. Rectal bleeding: - While in ER patient had a BM with small amount of bright red blood in stool. - Has a history of hemorrhoids, bleed likely secondary to this. - Hemoglobin stable at 12.3 - Will consider restarting ASA HLD: - Continue home atorvastatin HTN: - On arrival patient was acutely hypotensive to 80s/50s, with improvement in BP to 150s/80s with fluid resuscitation. - Continue home isosorbide mononitrate, metoprolol, HCTZ, lisinopril CODE STATUS: DNR/DNI FEN/GI: Heart healthy low-sodium diet DVT prophylaxis: Lovenox 40mg SQ daily Dispo: Telemetry for continuous cardiac and oxygen monitoring in the setting of acute hypoxic respiratory failure and severe sepsis (2) Peripheral vascular disease: (3) Sepsis with acute hypoxic respiratory failure: (4) Critical lower limb ischemia: Admission and Anticipated Discharge Date Admission Date: June 11, 2020 Supervising Physician Co-Signing Physician Notes Resident Physician Supervision Note: I independently interviewed and examined the patient and verified the flynn history and physical, reviewed labs and image studies, discussed the case with the resident Dr. Mason and agree with the findings and care plan. Subjective No acute events overnight--SR in 60s-70s on telemetry. Patient still complains of pain but seems much more comfortable. He is breathing better and has been weaned off of high-flow to 6L NC and saturating in the mid-90s. He denies CP, palpitation, n/v, abd pain, diarrhea, fever, chills. Review of Systems Review of Systems: All systems reviewed & are unremarkable except as noted in Subjective Physical Exam Physical Exam: GENERAL: A&Ox3. In pain. CHEST/LUNGS: Crackles at bases bilaterally. Breath sounds present in all lua. No accessory muscle use. No wheezes, no rales, no rhonchi. HEART: RRR. No m/g/r. No carotid bruits. ABDOMEN: NT/ND, soft. BS+ x4 EXTREMITIES: Right leg cold to touch. No sensation below knee. Very faint pedal pulse felt at RLE. No edema bilaterally. Results & Data Results & Data ([facility]) Vital Signs (Past 12 Hours) Vital Signs Temp Pulse Resp BP Pulse Ox 06/14/20 04:43 37.2 C 69 24 102/65 95 06/14/20 00:59 37.0 C 76 16 107/67 96 Resident Activity Tracking Resident Involvement: Resident Care Provided Care Provided: Adult Hospital Medicine (1) Pneumonia Laterality: right Lung location: lower lobe of lung Pneumonia type: due to unspecified organism Qualified Code(s): J18.9 - Pneumonia, unspecified organism
[2020-06-14 07:46] LABS: BUN Creatinine Ratio 41.2 (10-20); Calcium 8.5 mg/dl (8.5-10.1); Creatinine Clr Calc Pharmacy 67.4 ml/min; Est GFR (African American) 107.9; Est GFR (Non-African American) 93.1; Potassium 4.5 mmol/L (3.5-5.1)
[2020-06-14 07:54] LABS: Mean Corpuscular Hgb Conc 34.3 g/dL (32-36); Mean Platelet Volume 13.6 fL (7.4-10.4); Platelet Count 114 K/uL (130-400)
[2020-06-14 08:03] LABS: Basophils # (auto) 0.02 K/uL (0-0.2); Basophils % (auto) 0.1 %; Eosinophils # (auto) 0.07 K/uL (0-0.5); Eosinophils % (auto) 0.2 %; Immature Granulocytes # (auto) 0.17 K/uL (0.00-0.02); Immature Granulocytes % (auto) 0.5 %; Lymphocytes # (auto) 0.57 K/uL (1.2-3.4); Lymphocytes % (auto) 1.7 %; Mean Corpuscular Hemoglobin 31.7 pg (25-34); Mean Corpuscular Volume 92.6 fL (80-100); Monocytes # (auto) 1.84 K/uL (0.11-0.59); Monocytes % (auto) 5.4 %; Neutrophils # (auto) 31.65 K/uL (1.4-6.5); Neutrophils % (auto) 92.1 %; RDW Coefficient of Variation 14.9 % (11.5-14.5); RDW Standard Deviation 49.9 fL (36.4-46.3); Red Blood Count 3.78 M/uL (4.7-6.1); White Blood Count 34.32 K/uL (4.8-10.8)
[2020-06-14] MEDS: ASPIRIN 81 MG ECTAB PO SCH (08:43)
[2020-06-14] MEDS: hydroCHLOROthiazide 25 MG TAB PO SCH (08:43)
[2020-06-14] MEDS: ISOSORBIDE MONO EXTENDED REL 30 MG TABCR PO SCH (08:44)
[2020-06-14] MEDS: MONTELUKAST SODIUM 10 MG TABLET PO SCH (08:44)
[2020-06-14] MEDS: METOPROLOL SUCC 25MG EXT REL TAB PO SCH ×2 (08:44→20:53)
[2020-06-14] MEDS: lisinopril 5 MG TAB PO SCH (08:44)
[2020-06-14] MEDS: RANOLAZINE 500 MG ER TAB PO SCH ×2 (08:45→20:53)
[2020-06-14] MEDS: UMECLIDINIUM/VILANTEROL 62.5/25MCG 7 PUFFS/INHALER INH SCH (08:46)
[2020-06-14] MEDS: FLUTICASONE FUROATE 200MCG 14 PUFFS/INHALER INH SCH (08:46)
[2020-06-14] MEDS: METHADONE HCL 5 MG TAB PO SCH ×2 (08:53→20:53)
[2020-06-14] MEDS: predniSONE 5 MG TAB PO SCH ×2 (10:01→20:53)
--- NOTE | 2020-06-14 11:56 | Palliative Care Progress Note ---
Date of Service June 14, 2020 Assessment & Plan (1) Neuropathic pain: Improvement with methadone and gabapentin. Monitor for sedation. Though both are at very low doses, may need to hold methadone if lethargic, given long half life. Continue prn IV dilaudid. (2) Palliative care encounter: He is DNR. Anticipating RLE amputation when medically stable. (3) Ischemia of right lower extremity: (4) Sepsis with acute hypoxic respiratory failure: (5) Cardiomyopathy, ischemic: (6) Atrial fibrillation with RVR: Admission and Anticipated Discharge Date Admission Date: June 11, 2020 Subjective Some drowsiness today but able to converse and answers appropriately. He does note that he sometimes sees things that aren't there. Pain is improved. Last prn dilaudid at 1500 yesterday. LBM 2/. Review of Systems Review of Systems: [place] Symptom Assessment Scale Pain1/3 Dyspnea 1/3 Nausea 0/3 Drowsiness 1/3 Anxiety 0/3 Palliative Performance Score 40% Physical Exam Constitutional: + frail appearing; no acute distress drowsy Eyes: pupils constricted ENMT: Mouth: + dry oral mucous membranes Respiratory: no labored breathing Cardiovascular: Rate/Rhythm: regular rate Extremities: no edema right lower extremity mottled and cool Gastrointestinal (Abdomen): Percussion/Palpation: abdomen soft; abdomen nontender Skin: warm and dry Psychiatric: Orientation: oriented x 3 Results & Data ([facility]) Vital Signs (Past 12 Hours) Vital Signs Temp Pulse Pulse Resp BP Pulse Ox 06/14/20 08:45 97.7 F 81 16 123/69 96 06/14/20 08:00 71 06/14/20 04:43 99.0 F 69 24 102/65 95 06/14/20 00:59 98.6 F 76 16 107/67 96 PG Care Time/CCT Total # of Minutes Spent Total Time Spent with Patient: Total time spent is greater than 50% in coordination of care (as documented) at patient's floor/unit and/or counseling patient: total time spent 35 min with more than 50% of time spent on symptom management, coordination of care with hospitalist team and RN Coding Level of Care Code 10182 Subseq Hosp Care Lvl 3 Diagnoses Neuropathic pain M79.2 Palliative care encounter Z51.5 Ischemia of right lower extremity I99.8 Sepsis with acute hypoxic respiratory failure A41.9; R65.20; J96.01 Cardiomyopathy, ischemic I25.5 Atrial fibrillation with RVR I48.91
--- NOTE | 2020-06-14 12:00 | Communication Note ---
Date of Service: June 14, 2020 Will plan on a right AKA this friday.
--- NOTE | 2020-06-14 12:12 | Electrocardiogram Report ---
Test Reason : Blood Pressure : / mmHG Vent. Rate : 147 BPM Atrial Rate : 159 BPM P-R Int : 000 ms QRS Dur : 076 ms QT Int : 292 ms P-R-T Axes : 000 109 -55 degrees QTc Int : 456 ms Poor data quality, interpretation may be adversely affected Atrial fibrillation with rapid ventricular response Rightward axis Pulmonary disease pattern Abnormal ECG When compared with ECG of 11-JUN-2020 19:33, Atrial fibrillation now present HR has increased by 30 bpm Confirmed by David Cao ([id number]) on 06/14/2020 12:12:09 PM Referred By: Tatianna ALVA Confirmed By:David Cao
[2020-06-14] MEDS: ENOXAPARIN INJ 40 MG/0.4 ML SYR SQ SCH (12:23)
[2020-06-14] MEDS: CEFEPIME 2,000 MG in SYRINGE 0 ML IV SCH (12:23)
[2020-06-14] MEDS: ATORVASTATIN 40 MG TAB PO SCH (20:53)
[2020-06-14] MEDS: GABAPENTIN 100 MG CAP PO SCH (20:53)
[2020-06-15] MEDS: CEFEPIME 2,000 MG in SYRINGE 0 ML IV SCH ×3 (00:18→23:11)
[2020-06-15] MEDS: hydroCHLOROthiazide 25 MG TAB PO SCH (08:53)
[2020-06-15] MEDS: ASPIRIN 81 MG ECTAB PO SCH (08:53)
[2020-06-15] MEDS: UMECLIDINIUM/VILANTEROL 62.5/25MCG 7 PUFFS/INHALER INH SCH (08:54)
[2020-06-15] MEDS: FLUTICASONE FUROATE 200MCG 14 PUFFS/INHALER INH SCH (08:54)
[2020-06-15] MEDS: RANOLAZINE 500 MG ER TAB PO SCH ×2 (08:54→20:51)
[2020-06-15] MEDS: ISOSORBIDE MONO EXTENDED REL 30 MG TABCR PO SCH (08:55)
[2020-06-15] MEDS: predniSONE 5 MG TAB PO SCH ×2 (08:55→20:52)
[2020-06-15] MEDS: lisinopril 5 MG TAB PO SCH (08:55)
[2020-06-15] MEDS: METOPROLOL SUCC 25MG EXT REL TAB PO SCH ×2 (08:56→20:51)
[2020-06-15] MEDS: MONTELUKAST SODIUM 10 MG TABLET PO SCH (08:56)
[2020-06-15] MEDS: ENOXAPARIN INJ 40 MG/0.4 ML SYR SQ SCH (08:57)
[2020-06-15] MEDS ORDERED: VANCOMYCIN TROUGH ONE (09:30)
[2020-06-15] MEDS: METHADONE HCL 5 MG TAB PO SCH ×2 (09:38→20:51)
--- NOTE | 2020-06-15 09:57 | Hospitalist Progress Note ---
Date of Service June 15, 2020 Assessment & Plan (1) Pneumonia: 75-year-old male with past medical history significant for CAD, HTN, HLD, extensive smoking history and COPD, hemorrhoids admitted for severe sepsis with acute hypoxic respiratory failure, with initial complaint of RLE pain with findings consistent with critical limb ischemia. Severe sepsis sec to right sided ?aspiration pneumonia/CAP: - COVID-19 testing negative. - Lactate elevated to 4.4 - WBC today at 25.45 - CXR (06/11): "Extensive right lower lung consolidation suggestive of pneumonia. Emphysema." - Aorta w/Runoff CTA: "Extensive right middle lobe and right lower lobe consolidation. This is consistent with pneumonia." - Vanc & Flagyl discontinued today per pulmonology recs, continue on cefepime - Ordered speech therapy consult for swallowing evaluation: no issues swallowing - Pulmonology consult placed, follow recs: - Continue to treat pneumonia. Patient currently on cefepime. Today is day 5 of IV antibiotics. - Continue to monitor on telemetry. Continue supportive care. - Will check repeat chest x-ray today in anticipation of surgery tomorrow. - CXR today (06/15): "Extensive right basilar consolidation consistent with pneumonia, slightly decreased since prior exam. Continued radiographic follow-up to ensure resolution is recommended. Small right pleural effusion. Severe emphysema." - with underlying right side heart dysfunction - see echo results below Acute hypoxic respiratory failure: Acute hypoxic respiratory failure suspected to be multifactorial secondary to acute RLL pneumonia, fluid overload with likely reduced EF, baseline COPD with extensive smoking history. - On arrival with complaints of RLE pain, quickly started to develop shortness of breath requiring supplemental oxygen. - Did receive total of 2L NSS in the ER, - worsening shortness of breath at night - given Lasix for concern of fluid overload. - no concern of fluid overload though. Presentation secondary to pneumonia. - on 3L NC today in PM maintaining 94% saturation Critical RLE ischemia: Aorta w/Runoff CTA: " Occlusion of the right common iliac, external iliac and internal iliac arteries with reconstitution at the level of the distal external iliac artery. Severe multifocal stenoses within the right superficial femoral artery with occlusion of the mid to distal aspect superficial femoral artery. No flow to the right foot. Right peroneal and posterior tibial arteries occluded just distal to vessel origins. Occlusion of the right anterior tibial artery at the level the distal shaft of the tibia. Occluded right dorsalis pedis. Vascular surgery consultation is recommended." - Patient has an anterior RLE nonhealing ulcer that the patient reports he has had for 2 years - Vascular surgery consult: - Will plan on right AKA on 06/16 - Cardiology consult: -- Based on the fact that he has survived his current illness and tolerated rapid A-Fib yesterday with rates in the 180's and without angina -- patient may proceed with surgery provided that he take his usual cardiac medications on the morning of surgery including metoprolol, ranolazine, and isosorbide mononitrate. - Palliative consult: Improvement with methadone and gabapentin. Monitor for sedation. Though both are at very low doses, may need to hold methadone if lethargic, given long half life. Continue prn IV Dilaudid. - Order placed for Tylenol as needed for pain - Dilaudid 0.5mg q3h prn per pulmonology - Gabapentin 100mg PO HS per palliative - Methadone 2.5 mg PO BID - DVT ppx with Lovenox 40mg SQ daily COPD/Emphysema with cor pulmonale - Significant past smoking hx--1 PPD or greater since he was a teenager quit smoking 2 years ago in group home - No record of PFTs - Continue home montelukast, prednisone 5 mg p.o. twice daily, Anoro Ellipta inhaler. - Levalbuterol and nebulizer treatment as needed - Pulm consulted, recommend above meds as well as f/u with pulmonary on discharge - echo with dilated RV and mild to moderate reduced systolic fxn. Atrial fibrillation - Received metoprolol tartrate 5mg IV x1 06/12 and pulse down to 80s - Has been maintained in NSR - Continue metoprolol succinate 12.5mg PO BID - Hold anticoagulation per cardiology below - Continue to monitor on telemetry - Cardiology consult: -- Newly diagnosed A-Fib with RVR. -- Spontaneously converted back to a NSR following a dose of IV Lopressor. -- [id number] is 3 so anticoagulation is recommended. -- However, this is his only documented episode of A-Fib and it occurred during extenuating circumstances (ischemic leg, acute hypoxic respiratory failure, hypervolemia). -- Would continue to closely monitor heart rhythm, hold off on starting anticoagulation for now because of upcoming planned surgery and he's back in a NSR CAD/ chronic systolic CHF: - CAD s/p [place] 4 years ago (attempted PCI, vessel ruptured, PCI aborted) concern of fluid overload after 2L given in ED - given lasix overnight. - TTE showing moderate RV dilation w/ mild to moderate reduction of systolic fxn. LV sys fxn mild to moderately reduced as well. EF 40-45%. Grade I diastolic dysfunction. Mild mitral and tricuspid regurg. - Continue isosorbide mononitrate, ranolazine, metoprolol, lisinopril - Hold aspirin in the setting of BRBPR - Lasix as needed for signs of fluid overload. - Cardiology consulted: -- Diurese as needed with IV Lasix if weight climbs or fluid retention. -- Keep SpO2 saturations above 94%. -- Monitor I&O's, body weights. -- Continue beta suzanna, long-acting nitrate, ranolazine, and ACEI. Rectal bleeding: - While in ER patient had a BM with small amount of bright red blood in stool. - Has a history of hemorrhoids, bleed likely secondary to this. - Hemoglobin stable at 12.3 - Will consider restarting ASA HLD: - Continue home atorvastatin HTN: - On arrival patient was acutely hypotensive to 80s/50s, with improvement in BP to 150s/80s with fluid resuscitation. - Continue home isosorbide mononitrate, metoprolol, HCTZ, lisinopril CODE STATUS: DNR/DNI FEN/GI: Heart healthy, low-sodium diet DVT prophylaxis: Lovenox 40mg SQ daily Dispo: Telemetry for continuous cardiac and oxygen monitoring in the setting of acute hypoxic respiratory failure and severe sepsis (2) Peripheral vascular disease: (3) Sepsis with acute hypoxic respiratory failure: (4) Critical lower limb ischemia: Admission and Anticipated Discharge Date Admission Date: June 11, 2020 Supervising Physician Co-Signing Physician Notes Resident Physician Supervision Note: I independently interviewed and examined the patient and verified the flynn history and physical, reviewed labs and image studies, discussed the case with the resident Dr. Mason and agree with the findings and care plan. Subjective Patient seen at bedside this morning. Sitting up in bed comfortably. Pain is better controlled but remains. Breathing better, continues to saturate well on 6L NC. Aware of plan for AKA tomorrow. No CP, palpitations, n/v, diarrhea, abd pain. Review of Systems Review of Systems: All systems reviewed & are unremarkable except as noted in Subjective Physical Exam Physical Exam: GENERAL: A&Ox3. In pain. CHEST/LUNGS: Crackles at bases bilaterally. Breath sounds present in all lua. No accessory muscle use. No wheezes, no rales, no rhonchi. HEART: RRR. No m/g/r. No carotid bruits. ABDOMEN: NT/ND, soft. BS+ x4 EXTREMITIES: No edema, right LE cold to touch, nontender to touch Results & Data Results & Data ([facility]) Vital Signs (Past 12 Hours) Vital Signs Temp Pulse Pulse Resp BP BP Pulse Ox 06/15/20 09:00 36.7 C 78 20 124/78 94 06/15/20 03:13 36.7 C 71 16 98/63 L 94 06/15/20 00:25 37 C 76 18 109/68 97 06/14/20 23:45 64 Resident Activity Tracking Resident Involvement: Resident Care Provided Care Provided: Adult Hospital Medicine (1) Pneumonia Laterality: right Lung location: lower lobe of lung Pneumonia type: due to unspecified organism Qualified Code(s): J18.9 - Pneumonia, unspecified organism
[2020-06-15 10:01] LABS: ALC (manual) 0.23 K/uL (1.2-3.4); ANC (manual) 23.67 K/uL (1.4-6.5); Acanthocytes 1+; Basophils # (manual) 0.23 K/uL (0-0.2); Basophils % (manual) 0.9 %; Dohle Bodies 1+; Hematocrit (blood only) 35.1 % (42-52); Hemoglobin 11.9 g/dL (14.0-18.0); Lymphocytes # (manual) 0.23 K/uL (1.2-3.4); Lymphocytes % (manual) 0.9 %; Mean Corpuscular Hemoglobin 30.9 pg (25-34); Mean Corpuscular Hgb Conc 33.9 g/dL (32-36); Mean Corpuscular Volume 91.2 fL (80-100); Mean Platelet Volume 13.7 fL (7.4-10.4); Monocytes # (manual) 1.32 K/uL (0.11-0.59); Monocytes % (manual) 5.2 %; Neutrophils # (manual) 23.67 K/uL (1.4-6.5); Platelet Count 110 K/uL (130-400); Platelet Estimate Decreased (Normal); Poikilocytosis Present; RDW Coefficient of Variation 14.8 % (11.5-14.5); RDW Standard Deviation 49.3 fL (36.4-46.3); Red Blood Count 3.85 M/uL (4.7-6.1); White Blood Count 25.45 K/uL (4.8-10.8)
[2020-06-15 10:03] LABS: BUN Creatinine Ratio 45.9 (10-20); Calcium 8.5 mg/dl (8.5-10.1); Creatinine Clr Calc Pharmacy 65.9 ml/min; Est GFR (African American) 106.1; Est GFR (Non-African American) 91.5; Potassium 4.5 mmol/L (3.5-5.1)
--- NOTE | 2020-06-15 11:34 | Pulmonology Progress Note ---
Date of Service June 15, 2020 Assessment & Plan (1) Sepsis with acute hypoxic respiratory failure: Impression: This is a 75-year-old male that is an inmate at [facility]. He presented to emergency department with right lower extremity pain and found to have no pulse. He has history of peripheral vascular disease and peripheral artery disease and was seen in consultation by vascular team. He currently has hypoxia from sepsis and pneumonia. He also has new onset atrial fibrillation with rapid ventricular response this admission. 1. Hypoxemic respiratory failure: Patient now oxygenating well on nasal cannula 5 L/min. Continue to titrate as tolerated to maintain SaO2 greater than 90%.. Patient does have pneumonia of the right lower lobe consistent with aspiration. Blood cultures with no growth to date. No sputum production per patient. Arterial blood gas was collected 06/12/2020 showed a pH of 7.34, P CO2 of 32, HCO3 of 17. Patient is no longer using accessory muscles. Is no longer tachypneic. Continue to treat pneumonia. Patient currently on cefepime. Today is day 5 of IV antibiotics. Vancomycin and metronidazole have been discontinued. Continue to monitor on telemetry. Continue supportive care. Will check repeat chest x- ray today in anticipation of surgery tomorrow. 2. COPD/emphysema: Continue Anoro Ellipta. He is also on chronic prednisone 5 mg p.o. twice daily. Continue for now. No need to increase as patient is not bronchospastic. In addition, he is also on bronchodilators via levalbuterol and nebulizer treatment as needed. Patient denies previous history of pulmonary function testing. 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 He quit smoking 2 years ago when the [facility] ann[facility] all tobacco products. Continue supportive care. Would recommend patient follow-up with pulmonary on discharge for pulmonary function testing. Until that point, continue to treat empirically. Continue usual outpatient inhalers including ciclesonide on discharge per [facility] formulary 3. Sepsis: Etiology appears to be pulmonary with right lower lobe pneumonia. Blood cultures x2 are negative. Procalcitonin and WBCs were both elevated. No new labs today. Continue with broad-spectrum antibiotics including gram-negative coverage for probable aspiration pneumonia. Patient afebrile. T-max this hospital stay is 37.0 C. Continue oxygen support to maintain an SaO2 between 88 and 92% secondary to patient's severe COPD and emphysema. 4. CAD: Patient has a slight elevation in troponin at 0.235 on 06/12/20 AM. This is most likely ischemic demand from his respiratory failure. Echocardiogram shows a preserved left ventricular ejection fraction. No significant ST changes on EKG. Telemetry reveals new onset atrial fibrillation with rapid ventricular response. Cardiology has been consulted. Patient did respond to IV Lopressor. Further management per cardiology 5. Atrial fibrillation with RVR: Continue with beta-suzanna per cardiology. Would consider heparin drip for anticoagulation not only for the atrial fibrillation with high ventricular rate but also for arterial obstruction in the lower extremity. I did discuss this with the resident team and will defer to them for further treatment. 6. Peripheral vascular disease/critical lower limb ischemia: Pedal pulses appreciated this morning on examination. These were also confirmed by nursing with Doppler. Patient reports surgery 3 years ago with failure. Since that time he reports he has had ongoing difficulty with peripheral obstruction. Vascular surgery has been consulted and will continue to follow the patient. Continue to Doppler lower extremities for pulse. Consider heparin drip. Further recommendations per vascular surgery. Regarding pain, Dilaudid 0.5 mg has been increased to every 3 hours as needed for pain. Discussed pain strategy with resident. He will further discuss with his attending. Will defer further pain management to primary team and vascular surgery. 7. Tobacco abuse: Patient with a history of tobacco abuse since his teenage years until 2 years ago. Severe COPD and emphysema as listed above. Patient has abstained from tobacco abuse for the last 2 years secondary to incarceration. Thank you for including us in the care of this patient. Please refer to Dr. Perez's addendum and corrections. (2) Pneumonia: Laterality: right Lung location: lower lobe of lung Pneumonia type: due to unspecified organism Qualified Code(s): J18.9 - Pneumonia, unspecified organism (3) COPD (chronic obstructive pulmonary disease): COPD type: unspecified COPD Qualified Code(s): J44.9 - Chronic obstructive pulmonary disease, unspecified (4) Ischemia of right lower extremity: (5) Critical lower limb ischemia: (6) Peripheral vascular disease: (7) CAD (coronary artery disease): Associated angina: with stable angina Coronary Disease-Associated Artery/Lesion type: [place] artery [place] vs. transplanted heart: [place] heart Qualified Code(s): I25.118 - Atherosclerotic heart disease of [place] coronary artery with other forms of angina pectoris (8) Atrial fibrillation with RVR: (9) Chronic steroid use: (10) History of [place] (myocardial infarction): (11) Emphysema of lung: Emphysema type: panlobular Qualified Code(s): J43.1 - Panlobular emphysema (12) Cardiomyopathy, ischemic: (13) DVT prophylaxis: Admission and Anticipated Discharge Date Admission Date: June 11, 2020 Supervising Physician Co-Signing Physician Notes Patient seen and examined. Agree with assessment and plan as noted by DAWSON szymanski. The patient's hypoxemia is improved significantly and his oxygen requirement has been weaned down. He is continued on antibiotics. His pneumonia appears improving. He should have a follow-up chest x-ray in 4 to 6 weeks to document resolution of the airspace opacity. Additional recommendations per the primary service. We remain available to assist should the patient have issues perioperatively or postoperatively with regards to his respiratory status. Subjective Attending: Dr. Perez Patient seen and examined at bedside. He is doing much better from a respiratory standpoint. He has no respiratory distress noted. He has no fur ther use of accessory muscles. He is still on nasal cannula at 5 L/min. I did turn this down to 4 L/min during my exam and the patient continues saturating 92%. Breath sounds are improved in the posterior aspect. There is still some evidence of bronchospasm. Patient denies any acute shortness of breath. He has no chest pain or tightness. He is unaware of any arrhythmias. He denies any fever or chills. He states the pain is much better controlled with his right lower extremity. He has no new acute complaints. Review of Systems Review of Systems: All systems reviewed & are unremarkable except as noted in Subjective Physical Exam Physical Exam: GENERAL : No acute distress. No respiratory distress. EYES: No icterus, gaze conjugate NOSE: No evidence of epistaxis. Nasal cannula is in place MOUTH: No lesions or candidiasis NECK: Supple LUNGS: Patient continues with scattered bronchospasm in the posterior lua. H e does have much better air movement throughout the posterior. He does have some mild rhonchi in the upper anterior lau. HEART: Regular, rate controlled ABDOMEN: Soft, NT, ND, BS Present EXTREMITIES: No LE edema, pedal pulses intact NEURO: A&OX3 Results & Data Results & Data ([facility]) Vital Signs (Past 12 Hours) Vital Signs Temp Pulse Pulse Resp BP BP Pulse Ox 06/15/20 09:00 36.7 C 78 20 124/78 94 06/15/20 03:13 36.7 C 71 16 98/63 L 94 06/15/20 00:25 37 C 76 18 109/68 97 06/14/20 23:45 64 Laboratory Results 06/15/20 09:22 06/15/20 09:22 Diagnostic Findings No new diagnostic imaging since 06/12/2020. PG Care Time/CCT Total # of Minutes Spent Total Time Spent with Patient: Total time spent is greater than 50% in coordination of care (as documented) at patient's floor/unit and/or counseling patient: 25 minutes Coding Level of Care Code 29921 Subseq Hosp Care Lvl 2 Diagnoses Sepsis with acute hypoxic respiratory failure A41.9; R65.20; J96.01 Pneumonia J18.9 Laterality: right Lung location: lower lobe of lung Pneumonia type: due to unspecified organism COPD (chronic obstructive pulmonary disease) J44.9 COPD type: unspecified COPD Ischemia of right lower extremity I99.8 Critical lower limb ischemia I70.229 Peripheral vascular disease I73.9 CAD (coronary artery disease) I25.118 Associated angina: with stable angina Coronary Disease-Associated Artery/Lesion type: [place] artery [place] vs. transplanted heart: [place] heart Atrial fibrillation with RVR I48.91 Chronic steroid use History of [place] (myocardial infarction) I25.2 Emphysema of lung J43.1 Emphysema type: panlobular Cardiomyopathy, ischemic I25.5 DVT prophylaxis Z29.9 Time Spent (min) 25
--- NOTE | 2020-06-15 11:55 | XRay Report ---
XR chest 1V portable CLINICAL HISTORY: Hypoxia COMPARISON STUDY: Chest radiograph June 12, 2020. FINDINGS: There is no pneumothorax. A small right pleural effusion is noted. Extensive right basilar consolidation is noted. This has slightly decreased. There are severe emphysema. Pulmonary vascularit y is normal. Cardiac size is normal. Mediastinal contours are normal. IMPRESSION: 1. Extensive right basilar consolidation consistent with pneumonia, slightly decreased since prior ex am. Continued radiographic follow-up to ensure resolution is recommended. 2. Small right pleural effusion. 3. Severe emphysema. ACT 112: Negative or not required by law. Electronically signed by: Marquis Claire M.D. 06/15/2020 11:53 AM
--- NOTE | 2020-06-15 12:52 | Palliative Care Progress Note ---
Date of Service June 15, 2020 Assessment & Plan (1) Neuropathic pain: Controlled on low dose methadone with gabapentin at . No excessive sedation three days since start. Continue current dosing and monitor. (2) Palliative care encounter: Admission and Anticipated Discharge Date Admission Date: June 11, 2020 Subjective More awake today. Reports that pain control is good. No prn hydromorphone use since 06/13. He has not had BM since admission. Review of Systems Review of Systems: [place] Symptom Assessment Scale Pain 0/3 Dyspnea 1/3 Nausea 0/3 Anxiety 0/3 Drowsiness 0/3 Palliative Performance Score 30% Physical Exam Constitutional: + frail appearing; no acute distress ENMT: Mouth: + dry oral mucous membranes Respiratory: normal respiratory effort; no labored breathing Cardiovascular: Extremities: no edema RLE mottled and cool to touch Gastrointestinal (Abdomen): Percussion/Palpation: abdomen nontender Musculoskeletal: Extremities: + muscle atrophy Neurologic: awake; not confused Results & Data ([facility]) Vital Signs (Past 12 Hours) Vital Signs Temp Pulse Pulse Resp BP BP Pulse Ox 06/15/20 12:44 72 06/15/20 12:43 98.6 F 77 20 101/66 94 06/15/20 09:00 98.1 F 78 20 124/78 94 06/15/20 03:13 98.1 F 71 16 98/63 L 94 PG Care Time/CCT Total # of Minutes Spent Total Time Spent with Patient: Total time spent is greater than 50% in coordination of care (as documented) at patient's floor/unit and/or counseling patient: Coding Level of Care Code 32765 Subseq Hosp Care Lvl 2 Diagnoses Neuropathic pain M79.2 Palliative care encounter Z51.5
--- NOTE | 2020-06-15 14:52 | Surgery Progress Note ---
Date of Service June 15, 2020 Assessment & Plan (1) Ischemia of right lower extremity: Patient is scheduled for right above-knee amputation tomorrow. I have discussed the risks options and benefits of the procedure with the patient. The patient understands the risks options and benefits and agrees to the procedure. Admission and Anticipated Discharge Date Admission Date: June 11, 2020 Subjective Patient is awake alert and still complaining of pain in his right leg. He cannot move or feel his right foot. Physical Exam Physical Exam: His right lower extremity is cool from the knee distally. Is mottled from the mid calf down to the foot. Results & Data ([facility]) Vital Signs (Past 12 Hours) Vital Signs Temp Pulse Pulse Resp BP BP Pulse Ox 06/15/20 13:28 94 06/15/20 13:00 95 06/15/20 12:44 72 06/15/20 12:43 37.0 C 77 20 101/66 94 06/15/20 09:00 36.7 C 78 20 124/78 94 06/15/20 03:13 36.7 C 71 16 98/63 L 94
[2020-06-15] MEDS: GABAPENTIN 100 MG CAP PO SCH (20:52)
[2020-06-15] MEDS: ATORVASTATIN 40 MG TAB PO SCH (20:52)
[2020-06-15] MEDS ORDERED: ACETAMINOPHEN 1000 MG/100 ML IV IV PRN (23:25)
[2020-06-15] MEDS: ACETAMINOPHEN 325 MG TAB PO PRN (23:48)
[2020-06-16 07:40] LABS: BUN Creatinine Ratio 40.5 (10-20); Calcium 8.9 mg/dl (8.5-10.1); Creatinine Clr Calc Pharmacy 65.6 ml/min; Est GFR (African American) 106.1; Est GFR (Non-African American) 91.5; Potassium 4.5 mmol/L (3.5-5.1)
[2020-06-16 07:44] LABS: Hematocrit (blood only) 37.4 % (42-52); Hemoglobin 12.9 g/dL (14.0-18.0); Mean Corpuscular Hemoglobin 31.4 pg (25-34); Mean Corpuscular Hgb Conc 34.5 g/dL (32-36); Mean Platelet Volume 13.7 fL (7.4-10.4); Platelet Count 107 K/uL (130-400); RDW Coefficient of Variation 14.9 % (11.5-14.5); RDW Standard Deviation 49.4 fL (36.4-46.3); Red Blood Count 4.11 M/uL (4.7-6.1); White Blood Count 21.11 K/uL (4.8-10.8)
[2020-06-16 07:45] LABS: ALC (manual) 0.91 K/uL (1.2-3.4); ANC (manual) 17.48 K/uL (1.4-6.5); Echinocytes 1+; Eosinophils # (manual) 0.19 K/uL (0-0.5); Eosinophils % (manual) 0.9 %; Lymphocytes # (manual) 0.91 K/uL (1.2-3.4); Lymphocytes % (manual) 4.3 %; Monocytes # (manual) 2.53 K/uL (0.11-0.59); Neutrophils # (manual) 17.48 K/uL (1.4-6.5); Neutrophils % (manual) 82.8 %; Ovalocytes 1+
[2020-06-16] MEDS: FLUTICASONE FUROATE 200MCG 14 PUFFS/INHALER INH SCH (08:09)
[2020-06-16] MEDS: hydroCHLOROthiazide 25 MG TAB PO SCH (08:09)
[2020-06-16] MEDS: RANOLAZINE 500 MG ER TAB PO SCH ×2 (08:10→20:16)
[2020-06-16] MEDS: UMECLIDINIUM/VILANTEROL 62.5/25MCG 7 PUFFS/INHALER INH SCH (08:10)
[2020-06-16] MEDS: predniSONE 5 MG TAB PO SCH ×2 (08:10→20:16)
[2020-06-16] MEDS: lisinopril 5 MG TAB PO SCH (08:11)
[2020-06-16] MEDS: ENOXAPARIN INJ 40 MG/0.4 ML SYR SQ SCH (08:11)
[2020-06-16] MEDS: ASPIRIN 81 MG ECTAB PO SCH (08:11)
[2020-06-16] MEDS: METHADONE HCL 5 MG TAB PO SCH ×2 (08:11→20:14)
[2020-06-16] MEDS: METOPROLOL SUCC 25MG EXT REL TAB PO SCH ×2 (08:11→20:12)
[2020-06-16] MEDS: MONTELUKAST SODIUM 10 MG TABLET PO SCH (08:11)
[2020-06-16] MEDS: ISOSORBIDE MONO EXTENDED REL 30 MG TABCR PO SCH (08:11)
[2020-06-16] MEDS: SENNA 8.6 MG TAB PO SCH (08:12)
--- NOTE | 2020-06-16 08:25 | Hospitalist Progress Note ---
Date of Service June 16, 2020 Assessment & Plan (1) Pneumonia: 75-year-old male with past medical history significant for CAD, HTN, HLD, extensive smoking history and COPD, hemorrhoids admitted for severe sepsis with acute hypoxic respiratory failure, with initial complaint of RLE pain with findings consistent with critical limb ischemia. Now s/p right AKA. Critical RLE ischemia: Aorta w/Runoff CTA: " Occlusion of the right common iliac, external iliac and i nternal iliac arteries with reconstitution at the level of the distal external iliac artery. Severe multifocal stenoses within the right superficial femoral artery with occlusion of the mid to distal aspect superficial femoral artery. No flow to the right foot. Right peroneal and posterior tibial arteries occluded just distal to vessel origins. Occlusion of the right anterior tibial artery at the level the distal shaft of the tibia. Occluded right dorsalis pedis. Vascular surgery consultation is recommended." - Patient has an anterior RLE nonhealing ulcer that the patient reports he has had for 2 years. Cardiology consulted for clearance. - Vascular surgery consult: - Underwent right AKA 06/16--post-induction patient developed cardiac arrest requiring brief CPR. Maintained throughout the case by [place]-Synephrine and epinephrine. Transferred intubated to ICU after procedure where he has remained. - Palliative consult: Improvement with methadone and gabapentin. Monitor for sedation. Though both are at very low doses, may need to hold methadone if lethargic, given long half life. Continue prn IV Dilaudid. - Tylenol as needed for pain - Dilaudid 0.5mg q3h prn per pulmonology - Gabapentin 100mg PO HS per palliative - Methadone 2.5 mg PO BID - DVT ppx with Lovenox 40mg SQ daily Severe sepsis sec to right sided ?aspiration pneumonia/CAP: - COVID-19 testing negative. - Lactate elevated to 4.4 - WBC today at 25.45 - CXR (06/11): "Extensive right lower lung consolidation suggestive of pneumonia. Emphysema." - Aorta w/Runoff CTA: "Extensive right middle lobe and right lower lobe consolidation. This is consistent with pneumonia." - Ordered speech therapy consult for swallowing evaluation: no issues swallowing - Pulmonology consult placed, follow recs: - Continue to treat pneumonia. Patient currently on cefepime. Today is day 5 of IV antibiotics. - Continue to monitor on telemetry. Continue supportive care. - Will check repeat chest x-ray today in anticipation of surgery tomorrow. - CXR (06/15): "Extensive right basilar consolidation consistent with pneumonia, slightly decreased since prior exam. Continued radiographic follow-up to ensure resolution is recommended. Small right pleural effusion. Severe emphysema." Acute hypoxic respiratory failure: Acute hypoxic respiratory failure suspected to be multifactorial secondary to acute RLL pneumonia, fluid overload with likely reduced EF, baseline COPD with extensive smoking history. - On arrival with complaints of RLE pain, quickly started to develop shortness of breath requiring supplemental oxygen. - Did receive total of 2L NSS in the ER, - worsening shortness of breath at night - given Lasix for concern of fluid overload. - No concern of fluid overload though. Presentation secondary to pneumonia. - Intubated for AKA procedure--transferred to ICU and successfully extubated subsequently - Now on 6L NC maintaining 90% saturation COPD/Emphysema with cor pulmonale - Significant past smoking hx--1 PPD or greater since he was a teenager quit smoking 2 years ago in [facility] - No record of PFTs - Continue home montelukast, prednisone 5 mg p.o. twice daily, Anoro Ellipta inhaler. - Levalbuterol and nebulizer treatment as needed - Pulm consulted, recommend above meds as well as f/u with pulmonary on discharge - echo with dilated RV and mild to moderate reduced systolic fxn Atrial fibrillation - Received metoprolol tartrate 5mg IV x1 06/12 and pulse down to 80s - Has been maintained in NSR - Continue metoprolol succinate 12.5mg PO BID - Hold anticoagulation per cardiology below - Continue to monitor on telemetry - Cardiology consult: -- Newly diagnosed A-Fib with RVR. -- Spontaneously converted back to a NSR following a dose of IV Lopressor. -- [id number] is 3 so anticoagulation is recommended. -- However, this is his only documented episode of A-Fib and it occurred during extenuating circumstances (ischemic leg, acute hypoxic respiratory failure, hypervolemia). -- Would continue to closely monitor heart rhythm, hold off on starting anticoagulation for now because of upcoming planned surgery and he's back in a NSR CAD/chronic systolic CHF: - CAD s/p ME 4 years ago (attempted PCI, vessel ruptured, PCI aborted) concern of fluid overload after 2L given in ED - given lasix overnight. - TTE showing moderate RV dilation w/ mild to moderate reduction of systolic fxn. LV sys fxn mild to moderately reduced as well. EF 40-45%. Grade I diastolic dysfunction. Mild mitral and tricuspid regurg. - Continue isosorbide mononitrate, ranolazine, metoprolol, lisinopril - Hold aspirin in the setting of BRBPR - Lasix as needed for signs of fluid overload. - Cardiology consulted: -- Diurese as needed with IV Lasix if weight climbs or fluid retention. -- Keep SpO2 saturations above 94%. -- Monitor I&O's, body weights. -- Continue beta suzanna, long-acting nitrate, ranolazine, and ACEI. Rectal bleeding: - While in ER patient had a BM with small amount of bright red blood in stool. - Has a history of hemorrhoids, bleed likely secondary to this. - Hemoglobin stable at 12.3 - Will consider restarting ASA HLD: - Continue home atorvastatin HTN: - On arrival patient was acutely hypotensive to 80s/50s, with improvement in BP to 150s/80s with fluid resuscitation. - Continue home isosorbide mononitrate, metoprolol, HCTZ, lisinopril CODE STATUS: DNR/DNI FEN/GI: Heart healthy, low-sodium diet DVT prophylaxis: Lovenox 40mg SQ daily Dispo: Telemetry for continuous cardiac and oxygen monitoring in the setting of acute hypoxic respiratory failure and severe sepsis (2) Peripheral vascular disease: (3) Sepsis with acute hypoxic respiratory failure: (4) Critical lower limb ischemia: Admission and Anticipated Discharge Date Admission Date: June 11, 2020 Supervising Physician Co-Signing Physician Notes Resident Physician Supervision Note: I independently interviewed and examined the patient and verified the flynn history and physical, reviewed labs and image studies, discussed the case with the resident Dr. Mason and agree with the findings and care plan. Subjective Patient seen today PM after AKA and post extubation. He converses adequately with me and is fully alert/oriented. He states he feels okay. Feels his pain is not too bad at this point and states he knows Tylenol has been working but he'll "ask for something stronger if I need to". No other complaints--denies CP, abd pain, n/v. Review of Systems Review of Systems: All systems reviewed & are unremarkable except as noted in Subjective Physical Exam Physical Exam: GENERAL: Cooperative. NAD. CHEST/LUNGS: No labored breathing, no retractions. Rhonchi in RLL HEART: RRR. No m/g/r. No carotid bruits. ABDOMEN: NT/ND, soft. BS+ x4 EXTREMITIES: No cyanosis, no clubbing, no edema. S/p R AKA--dressings in place c/d/i SKIN: Warm and dry PSYCHIATRIC: A&Ox3, Euthymic affect Results & Data Results & Data ([facility]) Vital Signs (Past 12 Hours) Vital Signs Temp Pulse Resp BP Pulse Ox 06/16/20 04:08 36.9 C 66 18 102/63 93 06/15/20 23:09 38.1 C H 80 20 122/74 93 Resident Activity Tracking Resident Involvement: Resident Care Provided Care Provided: Adult Hospital Medicine (1) Pneumonia Laterality: right Lung location: lower lobe of lung Pneumonia type: due to unspecified organism Qualified Code(s): J18.9 - Pneumonia, unspecified organism
[2020-06-16] MEDS ORDERED: HYDROCORTISONE SOD 100 MG in SYRINGE 0 ML IV ONE (09:00)
[2020-06-16] MEDS ORDERED: ONDANSETRON INJ 2 MG/ML 2 ML VIAL ONE (09:36)
[2020-06-16] MEDS ORDERED: DEXAMETHASONE SOD INJ 4 MG/ML VIAL ONE (09:36)
[2020-06-16] MEDS ORDERED: fentaNYL citrate 100 MCG/2 ML VIAL ONE (09:36)
[2020-06-16] MEDS ORDERED: LIDOCAINE HCL 2% 2 ML VIAL/AMP(20MG/ML) INFIL ONE (09:36)
[2020-06-16] MEDS ORDERED: PROPOFOL IV EMULSION 10 MG/ML 20 ML VIAL IV ONE (09:36)
--- NOTE | 2020-06-16 09:50 | History & Physical Bridge Note ---
Date of Service June 16, 2020 History & Physical Bridge Note Patient for a right Above the Knee amputation today. I have discussed the risks options and benefits of the procedure with the patient. The patient understands the risks options and benefits and agrees to the procedure. I have examined the patient, reviewed the History & Physical and in the interval since the performance of the History & Physical I have noted the following changes of clinical significance: no changes noted
[2020-06-16] MEDS ORDERED: HYDROCORTISONE SOD SUCCINATE 100 MG/2 ML VIAL ONE (10:09)
[2020-06-16] MEDS ORDERED: SUCCINYLCHOLINE 100MG/5ML SYR IV ONE (10:09)
[2020-06-16] MEDS ORDERED: ePHEDrine sulfate 50 MG/ML AMP IV PRN (10:12)
[2020-06-16] MEDS ORDERED: ATROPINE SULFATE 0.1 MG/ML 10ML SYR IV PRN (10:12)
[2020-06-16] MEDS ORDERED: fentaNYL citrate 100 MCG/2 ML VIAL IV PRN (10:12)
[2020-06-16] MEDS ORDERED: HYDROmorphone INJ 2 MG/ML SYR/VIAL IV PRN (10:12)
[2020-06-16] MEDS ORDERED: ONDANSETRON INJ 2 MG/ML 2 ML VIAL IV PRN (10:12)
[2020-06-16] MEDS ORDERED: LARYING-O-JET KIT (LTA) ONE (11:04)
[2020-06-16] MEDS ORDERED: PHENYLEPHRINE HCL 10 MG/ML VIAL ONE (11:04)
[2020-06-16] MEDS ORDERED: ePHEDrine sulfate 50 MG/ML SYR ONE (11:04)
--- NOTE | 2020-06-16 11:52 | Post Operative Brief Note ---
Immediate Post Op Note v1 Date of Surgery June 16, 2020 Pre & Post Diagnosis Operation Date: 06/16/20 14:00 Pre-Op Diagnosis: Right leg ischemia Post-Op Diagnosis: Right leg ischemia I identified the patient and participated in the time-out.: Yes Procedure Operation Date: 06/16/20 14:00 Actual Procedures p Right Above Knee Amputation(Right) - Arnulfo Her MD Surgeon Arnulfo Her MD Export Agent MD Constantine L.Minarchick,PAC Estimated Blood Loss 10 Findings Consistent with Post-Op Diagnosis Drains Godoy Catheter (from inpatient floor) Anesthesia Type General Complications none Disposition Accompanied Patient To Recovery: No Disposition: Surgical ICU
[2020-06-16] MEDS ORDERED: NOREPINEPHRINE/D5W 8 MG/508 ML IV ONE (11:56)
[2020-06-16] MEDS ORDERED: STAT IV Infusion **Titration per Protocol STA (12:07)
[2020-06-16] MEDS ORDERED: EPINEPHrine/NSS 4 MG/254 ML BAG IV SCH (12:15)
--- NOTE | 2020-06-16 12:17 | Anesthesiology Progress Note ---
Date of Service June 16, 2020 Anesthesia Post Procedure Vital Signs Vital Signs: Temp Pulse Pulse Resp BP BP Pulse Ox 06/16/20 09:29 37.1 C 82 18 115/66 91 06/16/20 08:52 37.0 C 81 18 111/71 93 06/16/20 08:00 68 06/16/20 04:08 36.9 C 66 18 102/63 93 06/15/20 23:09 38.1 C H 80 20 122/74 93 06/15/20 19:53 37.6 C H 60 18 123/78 99 06/15/20 15:58 37.0 C 75 22 114/72 94 06/15/20 14:20 73 06/15/20 13:28 94 06/15/20 13:00 95 06/15/20 12:44 72 06/15/20 12:43 37.0 C 77 20 101/66 94 Pain Intensity Right Leg: Pain Intensity: 10 Transfer of Care Handoff Completed per policy Notes Mental Status: see notes below Patient Amnestic to Procedure: Yes Nausea / Vomiting: adequately controlled Pain: adequately controlled Airway Patency, RR, SpO2: see Notes below BP & HR: see Notes below Hydration State: stable & adequate Anesthetic Complications: see Notes below Notes: Called to the OR for code blue after start of surgery. Monitor registered Asystole. ARUNA Hook felt a weak pulse and chest compressions had been started. 1mg Epinepherine given. When I arrived CO2 registered 40 and pulse ox 91 on monitors, but no EKG tracing. Zol pads applied. I was able to feel a carotid pulse during a pause of compressions. QRS on monitor Shock was not advised by defibrilator. Pt began to spontaneously breath. The EKG leads were changed for anesthesia machine and QRS was seen. Pt required a phenylepherine drip. Decision was made to remove patients leg because of the urgenecy of the surgery. Pt began to require more pressor support through out the procedure. Pt was responding to epi boluses. Pt was transported with monitors and 15L of O2 delivered by ET tube. care was handed off to associate professor of mathematics team. I was available throughout the case and participated in transport. I signed out to Dr Perez. Pt is still requiring pressor support and intubated in ICU
--- NOTE | 2020-06-16 12:21 | Operative Report ---
Post Operative Report Pre & Post Diagnosis Operation Date: 06/16/20 14:00 Pre-Op Diagnosis: Right leg ischemia Post-Op Diagnosis: Right leg ischemia I identified the patient and participated in the time-out.: Yes Procedure Operation Date: 06/16/20 14:00 Actual Procedures p Right Above Knee Amputation(Right) - Arnulfo Her MD Surgeon Dr. Her Hosiery Bagger MD Constantine LKearaMinarchick,PAC Estimated Blood Loss 10 Findings Consistent with Post-Op Diagnosis Specimens RLE Anesthesia Type General Complications Asystolic prior to incision, ACLS started and achieved ROSC. Medically stabilized and decision was made to proceed with surgery Disposition Disposition: Surgical ICU Indications Ischemic right leg Description of Procedure After patient and surgical site identified, anesthesia was induced. The patient's right leg was prepped and draped in a sterile fashion. Prior to incision, the patient was noted to be hypotensive and asystolic. Chest compressi ons were performed and a code blue called. Finer details are in the anesthesia record. The patient was bolused with epinephrine and an AED was applied. On a rhythm check the patient was noted to have attained ROSC. The patient stabilized and the decision was made to proceed with the operation. The patient was draped again and circumferential skin incision made in a fishmouth shape on the distal femur. Muscle appeared pink and reactive, though there was minimal bleeding. Bovie cautery was used to carry the anterior incision to the bone. A Gigli saw was used to divide the femur. An amputation knife was used to complete the posterior flap. The femoral vessels were tied with 2-0 silk ties. The fascia was closed with interrupted 3-0 vicryls. The skin was closed with armando. The patient was transferred intubated to the ICU. Dr. Her was present and scrubbed for the entire procedure. I attest to the content of the Intraoperative Record and any orders documented therein. Any exceptions are noted below.
[2020-06-16 12:33] LABS: iSTAT Art Bld Gas pCO2 Correct 42 mmHg (35-46); iSTAT Art Bld Gas pH Corrected 7.355 (7.35-7.45); iSTAT Arterial Blood Gas HCO3 24 meg/L (19-24); iSTAT Arterial Blood Gas pCO2 44 mmHg (35-46); iSTAT Arterial Blood Gas pH 7.34 (7.35-7.45); iSTAT Arterial Blood Gas pO2 89 mmHg (80-95); iSTAT Arterial Blood Gas pO2 C 83; iSTAT Carbon Dioxide 25 mmol/L (24-31); iSTAT FiO2 100 %; iSTAT Hematocrit 34 % (42-52); iSTAT Hemoglobin 11.6 g/dl (14.0-18.0); iSTAT Potassium 4.1 mmol/L (3.3-5.0); iSTAT Site Art Line; iSTAT Sodium 131 mmol/L (135-144)
--- NOTE | 2020-06-16 12:45 | Anesthesiology Progress Note ---
Date of Service June 16, 2020 Assessment & Plan Admission and Anticipated Discharge Date Admission Date: June 11, 2020 Subjective Code Blue Note: (Code sheet also documented in chart) 11:07 patient rhythm noted to be asystole. Leads were on patient, weak pulse noted to left jugular. Surgical team started compressions. Code called. Epinephrine 1 amp given IV. Manual ventilations given via AGM @ 100% Fio2, Agent off. When team arrived and hooked patient up to defibrillator (less than 1 cycle of CPR), SR noted on monitor. ROSC, palpable strong jugular pulse, BP obtained (see flow sheet) and patient making attempts at breathing. Patient placed on PSV and pressors given to maintain BP. Dr. Alicea in room discussing case with Dr. Her and overseeing code/ patient. Decision made by surgeon to quickly finish case and take patient to ICU on ventilator. See Anesthesia flowsheet and code sheet for all details pertaining to case. 1155: Patient arrived to ICU room 5 from OR 12 on monitor, pressors and getting manual ventilations via Ambu. Dr. Alicea assisted travel with patient. No events en route. Patient promptly hooked up to ICU monitor and vent. Report given to Dr. Perez and Glynn RN who assumed care of patient/ pressors/ ventilation with all questions answered. Physical Exam Vital Signs: Last Vital Signs Temp 37.1 C 06/16/20 09:29 Pulse 95 H 06/16/20 12:25 Resp 17 06/16/20 12:03 BP 90/55 L 06/16/20 12:21 Pulse Ox 97 06/16/20 12:25 Results & Data ([facility]) Medications Administered Acetaminophen (Acetaminophen 325 Mg Tab) 650 mg PO Q4H PRN PRN Reason: Pain or Fever Stop: 07/15/20 23:28 Last Admin: 06/15/20 23:48 Dose: 650 mg Documented by: [id number] Aspirin (Aspirin 81 Mg Ectab) 81 mg PO DAILY [facility]ZETT Stop: 07/12/20 08:59 Last Admin: 06/16/20 08:11 Dose: 81 mg Documented by: [id number] Admin: 06/15/20 08:53 Dose: 81 mg Documented by: [id number] Admin: 06/14/20 08:43 Dose: 81 mg Documented by: [id number] Admin: 06/13/20 08:18 Dose: 81 mg Documented by: [id number] Admin: 06/12/20 07:58 Dose: 81 mg Documented by: [id number] Atorvastatin Calcium (Atorvastatin 40 Mg Tab) 40 mg PO [facility] Stop: 07/12/20 20:59 Last Admin: 06/15/20 20:52 Dose: 40 mg Documented by: [id number] Admin: 06/14/20 20:53 Dose: 40 mg Documented by: [id number] Admin: 06/13/20 21:18 Dose: 40 mg Documented by: [id number] Admin: 06/12/20 20:28 Dose: 40 mg Documented by: [id number] Enoxaparin Sodium (Enoxaparin Inj 40 Mg/0.4 Ml Syr) 40 mg SQ QAM [facility] Stop: 07/14/20 10:59 Last Admin: 06/16/20 08:11 Dose: 40 mg Documented by: [id number] Admin: 06/15/20 08:57 Dose: 40 mg Documented by: [id number] Admin: 06/14/20 12:23 Dose: 40 mg Documented by: [id number] Fluticasone Furoate (Fluticasone Furoate 200mcg 14 Puffs/Inhaler) 1 puffs INH DAILY [facility]ZETT Stop: 07/12/20 08:59 Last Admin: 06/16/20 08:09 Dose: 1 puffs Documented by: [id number] Admin: 06/15/20 08:54 Dose: 1 puffs Documented by: [id number] Admin: 06/14/20 08:46 Dose: 1 puffs Documented by: [id number] Admin: 06/13/20 08:19 Dose: 1 puffs Documented by: [id number] Admin: 06/12/20 07:56 Dose: 1 puffs Documented by: [id number] Gabapentin (Gabapentin 100 Mg Cap) 100 mg PO [facility]ZETT Stop: 07/13/20 20:59 Last Admin: 06/15/20 20:52 Dose: 100 mg Documented by: [id number] Admin: 06/14/20 20:53 Dose: 100 mg Documented by: [id number] Admin: 06/13/20 21:18 Dose: 100 mg Documented by: [id number] Hydrochlorothiazide (Hydrochlorothiazide 25 Mg Tab) 12.5 mg PO DAILY LIZETT Stop: 07/12/20 08:59 Last Admin: 06/16/20 08:09 Dose: 12.5 mg Documented by: [id number] Admin: 06/15/20 08:53 Dose: 12.5 mg Documented by: [id number] Admin: 06/14/20 08:43 Dose: 12.5 mg Documented by: [id number] Admin: 06/13/20 08:18 Dose: 12.5 mg Documented by: [id number] Admin: 06/12/20 07:58 Dose: 12.5 mg Documented by: [id number] Hydromorphone HCl (Hydromorphone Inj 0.5 Mg/0.5 Ml Syr) 0.5 mg IV Q3H PRN PRN Reason: Pain Stop: 06/26/20 08:59 Last Admin: 06/13/20 16:32 Dose: 0.5 mg Documented by: [id number] Admin: 06/13/20 11:39 Dose: 0.5 mg Documented by: [id number] Cefepime HCl 2,000 mg/ Syringe 20 mls @ 5 mls/min IV Q12H [facility] Stop: 06/19/20 11:59 Last Admin: 06/15/20 23:11 Dose: 5 mls/min Documented by: [id number] Admin: 06/15/20 12:27 Dose: 5 mls/min Documented by: [id number] Admin: 06/15/20 00:18 Dose: 5 mls/min Documented by: [id number] Admin: 06/14/20 12:23 Dose: 5 mls/min Documented by: [id number] Isosorbide Mononitrate (Isosorbide [place] Extended Rel 30 Mg Tabcr) 30 mg PO DAILY LIZETT Stop: 07/12/20 08:59 Last Admin: 06/16/20 08:11 Dose: 30 mg Documented by: [id number] Admin: 06/15/20 08:55 Dose: 30 mg Documented by: [id number] Admin: 06/14/20 08:44 Dose: 30 mg Documented by: [id number] Admin: 06/13/20 08:20 Dose: 30 mg Documented by: [id number] Admin: 06/12/20 07:59 Dose: 30 mg Documented by: [id number] Levalbuterol HCl (Levalbuterol Hcl 0.63 Mg/3 Ml Neb) 0.63 mg NEB Q6H PRN PRN Reason: SOB/Wheezing/with mucomyst if needed Stop: 07/12/20 02:44 Last Admin: 06/12/20 04:36 Dose: 0.63 mg Documented by: [id number] Lisinopril (Lisinopril 5 Mg Tab) 5 mg PO DAILY LIZETT Stop: 07/14/20 08:59 Last Admin: 06/16/20 08:11 Dose: 5 mg Documented by: [id number] Admin: 06/15/20 08:55 Dose: 5 mg Documented by: [id number] Admin: 06/14/20 08:44 Dose: 5 mg Documented by: [id number] Methadone HCl (Methadone Hcl 5 Mg Tab) 2.5 mg PO BID [facility]ZETT Stop: 06/27/20 20:59 Last Admin: 06/16/20 08:11 Dose: 2.5 mg Documented by: [id number] Admin: 06/15/20 20:51 Dose: 2.5 mg Documented by: [id number] Admin: 06/15/20 09:38 Dose: 2.5 mg Documented by: [id number] Admin: 06/14/20 20:53 Dose: 2.5 mg Documented by: [id number] Admin: 06/14/20 08:53 Dose: 2.5 mg Documented by: [id number] Admin: 06/13/20 21:18 Dose: 2.5 mg Documented by: [id number] Metoprolol Succinate (Metoprolol Succ 25mg Ext Rel Tab) 12.5 mg PO BID LIZETT Stop: 07/12/20 08:59 Last Admin: 06/16/20 08:11 Dose: 12.5 mg Documented by: [id number] Admin: 06/15/20 20:51 Dose: 12.5 mg Documented by: [id number] Admin: 06/15/20 08:56 Dose: 12.5 mg Documented by: [id number] Admin: 06/14/20 20:53 Dose: 12.5 mg Documented by: [id number] Admin: 06/14/20 08:44 Dose: 12.5 mg Documented by: [id number] Admin: 06/13/20 21:18 Dose: 12.5 mg Documented by: [id number] Admin: 06/13/20 09:06 Dose: 12.5 mg Documented by: [id number] Admin: 06/12/20 20:29 Dose: 12.5 mg Documented by: [id number] Admin: 06/12/20 07:58 Dose: 12.5 mg Documented by: [id number] Montelukast Sodium (Montelukast Sodium 10 Mg Tablet) 10 mg PO DAILY [facility]ZETT Stop: 07/12/20 08:59 Last Admin: 06/16/20 08:11 Dose: 10 mg Documented by: [id number] Admin: 06/15/20 08:56 Dose: 10 mg Documented by: [id number] Admin: 06/14/20 08:44 Dose: 10 mg Documented by: [id number] Admin: 06/13/20 08:16 Dose: 10 mg Documented by: [id number] Admin: 06/12/20 07:58 Dose: 10 mg Documented by: [id number] Prednisone (Prednisone 5 Mg Tab) 5 mg PO BID LIZETT Stop: 07/12/20 08:59 Last Admin: 06/16/20 08:10 Dose: 5 mg Documented by: [id number] Admin: 06/15/20 20:52 Dose: 5 mg Documented by: [id number] Admin: 06/15/20 08:55 Dose: 5 mg Documented by: [id number] Admin: 06/14/20 20:53 Dose: 5 mg Documented by: [id number] Admin: 06/14/20 10:01 Dose: 5 mg Documented by: [id number] Admin: 06/13/20 21:18 Dose: 5 mg Documented by: [id number] Admin: 06/13/20 08:16 Dose: 5 mg Documented by: [id number] Admin: 06/12/20 20:28 Dose: 5 mg Documented by: [id number] Admin: 06/12/20 07:58 Dose: 5 mg Documented by: [id number] Ranolazine (Ranolazine 500 Mg Er Tab) 500 mg PO BID LIZETT Stop: 07/12/20 08:59 Last Admin: 06/16/20 08:10 Dose: 500 mg Documented by: [id number] Admin: 06/15/20 20:51 Dose: 500 mg Documented by: [id number] Admin: 06/15/20 08:54 Dose: 500 mg Documented by: [id number] Admin: 06/14/20 20:53 Dose: 500 mg Documented by: [id number] Admin: 06/14/20 08:45 Dose: 500 mg Documented by: [id number] Admin: 06/13/20 21:18 Dose: 500 mg Documented by: [id number] Admin: 06/13/20 08:18 Dose: 500 mg Documented by: [id number] Admin: 06/12/20 20:29 Dose: 500 mg Documented by: [id number] Admin: 06/12/20 07:58 Dose: 500 mg Documented by: [id number] Sennosides (Senna 8.6 Mg Tab) 8.6 mg PO QAM [facility] Stop: 07/16/20 08:59 Last Admin: 06/16/20 08:12 Dose: 8.6 mg Documented by: [id number] Umeclidinium/Vilanterol (Umeclidinium/Vilanterol 62.5/25mcg 7 Puffs/Inhaler) 1 puffs INH DAILY [facility] Stop: 07/12/20 08:59 Last Admin: 06/16/20 08:10 Dose: 1 puffs Documented by: [id number] Admin: 06/15/20 08:54 Dose: 1 puffs Documented by: [id number] Admin: 06/14/20 08:46 Dose: 1 puffs Documented by: [id number] Admin: 06/13/20 08:19 Dose: 1 puffs Documented by: [id number] Admin: 06/12/20 07:57 Dose: 1 puffs Documented by: [id number]
--- NOTE | 2020-06-16 12:52 | Procedure Note ---
Procedure Note Date of Service June 16, 2020 ARTERIAL LINE PROCEDURE NOTE: Procedure: Arterial Line Placement Provider: Spencer Perez MD Indication: Monitoring on Pressors Anesthesia: None Procedure was emergent. Patient is intubated and unable to provide consent. No family immediately available A time-out was completed verifying correct patient, procedure, site, positioning, and implant(s) or special equipment if applicable. Allens test was performed to ensure adequate perfusion. Patients left wrist was prepped and draped in the usual sterile fashion. Ultrasound guidance was used to aid needle placement. A 20g Arrow arterial line was introduced into the left radial artery. Catheter was threaded, and the needle was removed with appropriate blood return. Good waveform was observed. The patient tolerated the procedure well. Blood Loss: Minimal Complications: None Coding CPT Codes Tubes, Drains, and Vasc Access - Tubes, Drains, and Vasc Access: [id number] Place Catheter In Artery ([id number]) [facility] [place] [facility] [place] Codes (Charges) Tubes, Drains, and Vasc Access Procedure 1: Tubes, Drains, and Vasc Access: [id number] Place Catheter In Artery
--- NOTE | 2020-06-16 12:53 | XRay Report ---
SINGLE VIEW CHEST CLINICAL HISTORY: Central venous catheter placement. FINDINGS: 2 AP, portable, upright chest radiographs are compared to study dated 06/15/2020. The examin ation is degraded by portable technique and patient rotation. An endotracheal tube has been placed. T he tip projects approximately 5 cm above the kenny. A left subclavian central venous catheter has be en placed. The tip projects over the SVC. The cardiomediastinal silhouette is unremarkable noting ath erosclerotic calcification of the thoracic aorta. Advanced emphysema and chronic interstitial thicken ing is similar to previous. Airspace consolidation is again seen at the right lung base with a small right pleural effusion. No pneumothorax is seen. The skeletal structures are osteopenic. There are he aled left-sided rib fractures. IMPRESSION: 1. An endotracheal tube and a left subclavian central venous catheter have been placed as above. 2. No pneumothorax is identified post procedure. 3. Advanced emphysema. 4. Right basilar consolidation is unchanged and typical for pneumonia. Radiographic follow-up to reso lution is recommended. ACT 112: Negative or not required by law. Electronically signed by: Alejandro Panda M.D. 06/16/2020 12:52 PM
--- NOTE | 2020-06-16 12:55 | Procedure Note ---
Procedure Note Date of Service June 16, 2020 CENTRAL LINE PROCEDURE NOTE: Procedure: Central Line Placement Provider: Spencer Perez MD Indication: Central Drug Administration, Poor Venous Access, Multiple Lab Draws Necessary, etc. Anesthesia: 5 mlLidocaine 1% Site: Left subclavian Procedure was emergent as he had minimal IV access and anesthesia was pushing high-dose pressors. Patient intubated and unable to provide consent. No time to allow for contacting any interested family members A time-out was completed verifying correct patient, procedure, site, positioning, and implants(s) or special equipment if applicable. Patients left infraclavicular fossa was cleansed and draped in the typical sterile fashion using Chloraprep. The superficial tissue was anesthetized using 5 mL of 1% lidocaine without epinephrine. After adequate anesthetization was achieved, the left subclavian vein was cannulated using an introducer needle on a syringe. Good venous blood return was maintained prior to removal of syringe from introducer needle. Using Seldinger Technique, a guide wire was advanced through the introducer needle without resistance. The introducer needle was removed. A small incision was made in penetrating fashion at the guide wire insertion site utilizing an 11 blade scalpel. The dilator was advanced to the vessel without resistance. The dilator was exchanged for the triple lumen catheter which was advanced into the vessel without resistance. The guide wire was removed intact from the catheter without issue. Claves were placed on each catheter tip with confirmation of good blood flow from each lumen. Each port was easily flushed with sterile saline. The catheter was placed at 22 cm and [address] in place. BioPatch was applied to the catheter and a sterile Tegaderm dressing was applied over the catheter with careful attention to sterility. Patient tolerated procedure well. No immediate complications were met. Post procedure x-ray was completed, placement was appropriate and no pneumothorax was noted. Coding CPT Codes Tubes, Drains, and Vasc Access - Tubes, Drains, and Vasc Access: [id number] Place catheter in vein superior or inferior vena cava ([id number]) [facility] [place] Procedure Codes (Charges) Tubes, Drains, and Vasc Access Procedure 1: Tubes, Drains, and Vasc Access: [id number] Place catheter in vein superior or inferior vena cava
--- NOTE | 2020-06-16 13:24 | Critical Care Progress Note ---
Date of Service June 16, 2020 Assessment & Plan (1) COPD (chronic obstructive pulmonary disease): (2) Ischemia of right lower extremity: (3) Pneumonia: (4) Sepsis: (5) Cardiac arrest: Impression: 75-year-old male admitted with ischemic lower extremity. He presented with pneumonia and hypoxemic respiratory failure in the setting of obstructive lung disease. He was taken to the OR today for [id number] amputation and apparently post induction developed cardiac arrest and required brief CPR. He was maintained through the case with pushes of Kelton-Synephrine and epinephrine. They were able to complete the amputation he was brought back to the ICU intubated. I assessed the patient on arrival. They were continuing to push intermittent doses of epinephrine. Rapidly placed an arterial line as well as a central venous catheter. At the conclusion of those procedures, we had adequate hemodynamics oxygen saturation and the patient's mental status was actually improving somewhat. Recommendations: 1. 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 He is improving significantly so I do not think he warrants cooling and in addition his initial rhythm was asystole. Will continue pain medications for his chronic pain issues. He was on methadone and Dilaudid as well as Neurontin prior to surgery. 2. Cardiovascular: Cardiac arrest. Echocardiogram preoperatively showed an EF of 40 to 45% with mild to moderate global hypokinesis and severe inferior hypokinesis and concentric LVH with grade 1 diastolic dysfunction and mild reduction in right ventricular function. Cardiology evaluated the patient back on the eighth and will ensure that they are aware of his change in clinical status. Will check troponin. I suspect this was likely related to anesthesia so do not think he requires anticoagulation unless cardiology feels otherwise. He is currently on a low-dose of norepinephrine and will try and wean that off as tolerated. Hold antihypertensives for now. 3. Pulmonary: The patient is currently being treated for pneumonia. See antibiotics under ID below. Will transition to pressure support ventilation with plans to extubate depending on the patient's neurological status and hemodynamic stability. Patient does have significant obstructive lung disease at baseline but does not appear overtly bronchospastic currently. Do not think he requires steroids at this point time. We will continue bronchodilators. Patient is chronically on steroids for unclear reasons. He is at risk for relative adrenal insufficiency. See comments below 4. ID: Continue antibiotics for pneumonia. Currently on cefepime which should be adequate. 5. Renal: No prior issues. Awaiting repeat labs. 6. Endo: Chronic prednisone use. At risk for relative adrenal insufficiency. If unable to get off pressors, may consider random cortisol or empiric stress dose steroids. 7. GI: N.p.o. for now. Hopefully will be able to get him extubated in the next brief period of time and can reassess enteral feeding. 8. Arterial insufficiency: Status post amputation. Wound management per vascular surgery. Will require PT and OT evaluations. 9. DVT and GI prophylaxis will be initiated. The patient previously was established with palliative care and was DNR/DNI. Will readdress once the patient is able to express his wishes however I suspect we will revert back to that CODE STATUS. A total of 55 minutes critical care time exclusive of procedures was spent in evaluation management stabilization of this patient. He remains critically ill at this point time Admission and Anticipated Discharge Date Admission Date: June 11, 2020 Subjective Patient intubated and unresponsive. Seen at bedside with anesthesia and vascular surgery Review of Systems Review of Systems: Unobtainable due to endotracheal tube and Unobtainable due to reduced consciousness Physical Exam Constitutional: + acute distress, + frail appearing and + mechanically ventilated Eyes: pupils constricted ENMT: Orotracheal tube in place Respiratory: no labored breathing Rhonchi right lower lobe Cardiovascular: Rate/Rhythm: regular rate Heart Sounds: normal S1 and normal S2 Extremities: no edema right lower extremity mottled and cool Gastrointestinal (Abdomen): Percussion/Palpation: abdomen soft; abdomen nonten chencho Musculoskeletal: Status post AKA Skin: warm and dry Psychiatric: Orientation: oriented x 3 Results & Data Results & Data ([facility]) Vital Signs (Past 12 Hours) Vital Signs Temp Pulse Pulse Resp BP BP BP 06/16/20 12:25 95 H 06/16/20 12:21 95 H 90/55 L 06/16/20 12:20 93 H 18 06/16/20 12:19 97 H 113/65 06/16/20 12:18 96 H 76/51 L 06/16/20 12:17 90 76/54 L 06/16/20 12:16 91 H 80/53 L 06/16/20 12:14 91 H 70/53 L 06/16/20 12:13 90 87/56 L 06/16/20 12:12 92 H 82/57 L 06/16/20 12:11 94 H 94/58 L 06/16/20 12:09 94 H 81/62 L 06/16/20 12:07 92 H 85/54 L 06/16/20 12:05 87 83/55 L 06/16/20 12:03 91 H 17 107/66 06/16/20 12:02 99 H 18 06/16/20 12:00 97 H 17 157/86 H 06/16/20 09:29 37.1 C 82 18 115/66 06/16/20 08:52 37.0 C 81 18 111/71 06/16/20 08:00 68 06/16/20 04:08 36.9 C 66 18 102/63 Pulse Ox 06/16/20 12:25 97 06/16/20 12:21 95 06/16/20 12:20 93 06/16/20 12:19 100 06/16/20 12:18 99 06/16/20 12:17 95 06/16/20 12:16 93 06/16/20 12:14 96 06/16/20 12:13 88 L 06/16/20 12:12 93 06/16/20 12:11 95 06/16/20 12:09 93 06/16/20 12:07 89 L 06/16/20 12:05 76 L 06/16/20 12:03 92 06/16/20 12:02 97 06/16/20 12:00 95 06/16/20 09:29 91 06/16/20 08:52 93 06/16/20 08:00 06/16/20 04:08 93 Laboratory Results 06/16/20 06:43 06/16/20 06:43 06/12/20 10:03 ABG pH 7.34 L ABG pCO2 32 L ABG pO2 93 ABG HCO3 17 L ABG O2 Saturation 97.1 H ABG Base Excess -8.0 Diagnostic Findings Imaging study post line placement independently reviewed. Endotracheal tube and subclavian line are in good position. There is some hazy opacity in the right lung base consistent with prior pneumonia. No pneumothorax. Coding Level of Care Code Critical Care 1st 30-74 mins Diagnoses COPD (chronic obstructive pulmonary disease) J44.9 COPD type: unspecified COPD Ischemia of right lower extremity I99.8 Pneumonia J18.9 Laterality: right Lung location: lower lobe of lung Pneumonia type: due to unspecified organism Sepsis A41.9 Sepsis acute organ dysfunction status: without acute organ dysfunction Sepsis type: sepsis due to unspecified organism Cardiac arrest I46.9 Time Spent (min) 55 (1) COPD (chronic obstructive pulmonary disease) COPD type: unspecified COPD Qualified Code(s): J44.9 - Chronic obstructive pulmonary disease, unspecified (2) Pneumonia Laterality: right Lung location: lower lobe of lung Pneumonia type: due to unspecified organism Qualified Code(s): J18.9 - Pneumonia, unspecified organism (3) Sepsis Sepsis acute organ dysfunction status: without acute organ dysfunction Sepsis type: sepsis due to unspecified organism Qualified Code(s): A41.9 - Sepsis, unspecified organism
[2020-06-16 14:29] LABS: ALC (manual) 0.91 K/uL (1.2-3.4); Echinocytes 2+; Hematocrit (blood only) 34.5 % (42-52); Hemoglobin 11.5 g/dL (14.0-18.0); Lymphocytes # (manual) 0.91 K/uL (1.2-3.4); Lymphocytes % (manual) 3.4 %; Mean Corpuscular Hemoglobin 30.3 pg (25-34); Mean Corpuscular Hgb Conc 33.3 g/dL (32-36); Mean Platelet Volume 14.4 fL (7.4-10.4); Monocytes % (manual) 7.8 %; Neutrophils % (manual) 88.8 %; Ovalocytes 1+; Platelet Count 106 K/uL (130-400); Platelet Estimate Decreased (Normal); Polychromasia 1+; RDW Coefficient of Variation 14.8 % (11.5-14.5); RDW Standard Deviation 48.8 fL (36.4-46.3); Red Blood Count 3.79 M/uL (4.7-6.1); White Blood Count 26.91 K/uL (4.8-10.8)
[2020-06-16] MEDS: CEFEPIME 2,000 MG in SYRINGE 0 ML IV SCH ×2 (14:29→23:19)
[2020-06-16 14:33] LABS: Albumin Level 2.2 gm/dl (3.4-5.0); BUN Creatinine Ratio 35.3 (10-20); Calcium 8.8 mg/dl (8.5-10.1); Creatinine Clr Calc Pharmacy 50.6 ml/min; Est GFR (African American) 90.5; Est GFR (Non-African American) 78.1; Potassium 4.4 mmol/L (3.5-5.1)
[2020-06-16 14:41] LABS: Albumin Globulin Ratio 0.6 (0.9-2); Bilirubin,Total 0.9 mg/dl (0.2-1); Globulin 3.9 gm/dl (2.5-4.0); Total Protein 6.1 gm/dl (6.4-8.2); Troponin I 0.285 ng/ml (0-0.045)
[2020-06-16] MEDS: ACETAMINOPHEN 325 MG TAB PO PRN (16:03)
[2020-06-16] MEDS: HYDROmorphone INJ 0.5 MG/0.5 ML SYR IV PRN (18:19)
[2020-06-16] MEDS: ATORVASTATIN 40 MG TAB PO SCH (20:14)
[2020-06-16] MEDS: GABAPENTIN 100 MG CAP PO SCH (20:15)
[2020-06-17 05:26] LABS: Mean Corpuscular Hgb Conc 34.1 g/dL (32-36)
[2020-06-17 05:40] LABS: Hematocrit (blood only) 35.2 % (42-52); Mean Corpuscular Hemoglobin 31.2 pg (25-34); Mean Corpuscular Volume 91.4 fL (80-100); RDW Coefficient of Variation 14.8 % (11.5-14.5); RDW Standard Deviation 49.9 fL (36.4-46.3); Red Blood Count 3.85 M/uL (4.7-6.1); White Blood Count 23.84 K/uL (4.8-10.8)
[2020-06-17 05:56] LABS: Acanthocytes 1+; Basophils # (auto) 0.02 K/uL (0-0.2); Basophils % (auto) 0.1 %; Eosinophils # (auto) 0.01 K/uL (0-0.5); Immature Granulocytes # (auto) 0.32 K/uL (0.00-0.02); Immature Granulocytes % (auto) 1.3 %; Lymphocytes # (auto) 2.09 K/uL (1.2-3.4); Lymphocytes % (auto) 8.8 %; Monocytes # (auto) 0.34 K/uL (0.11-0.59); Monocytes % (auto) 1.4 %; Neutrophils # (auto) 21.06 K/uL (1.4-6.5); Neutrophils % (auto) 88.4 %; Ovalocytes 1+; Platelet Count 94 K/uL (130-400); Platelet Estimate Decreased (Normal)
[2020-06-17 05:58] LABS: BUN Creatinine Ratio 56.2 (10-20); Creatinine Clr Calc Pharmacy 57.8 ml/min; Est GFR (African American) 100.7; Est GFR (Non-African American) 86.9; Magnesium 2.9 mg/dl (1.8-2.4); Potassium 4.4 mmol/L (3.5-5.1)
[2020-06-17 05:59] LABS: Phosphorus 4.4 mg/dl (2.5-4.9)
[2020-06-17 07:00] LABS: Albumin Level 2.2 gm/dl (3.4-5.0); Bilirubin Direct 0.2 mg/dl (0-0.2); Bilirubin,Total 0.7 mg/dl (0.2-1); Total Protein 6.4 gm/dl (6.4-8.2)
[2020-06-17] MEDS: HYDROmorphone INJ 0.5 MG/0.5 ML SYR IV PRN ×2 (07:27→23:41)
--- NOTE | 2020-06-17 07:42 | Critical Care Progress Note ---
Date of Service June 17, 2020 Assessment & Plan (1) COPD (chronic obstructive pulmonary disease): (2) Ischemia of right lower extremity: (3) Pneumonia: (4) Sepsis: (5) Cardiac arrest: Impression: 75-year-old male admitted with ischemic lower extremity. He presented with pneumonia and hypoxemic respiratory failure in the setting of obstructive lung disease. He was taken to the OR today for [id number] amputation and apparently post induction developed cardiac arrest and required brief CPR. He was extubated 06/16/2020 24-hour events: Patient was taken to the OR yesterday for AKA. On induction of anesthesia he developed asystole requiring CPR and aggressive resuscitation. The AKA was completed and returned to the ICU intubated on on pressors. Lines were placed. Over a fairly rapid period of time, the patient's mental status improved and he was extubated. He was weaned off pressors. He appears to have suffered no significant neurological sequelae from his event. Recommendations: 1. Neurologic: Continue pain medications. He appears neurologically the same as he was prior to surgery. 2. Cardiovascular: Cardiac arrest. Echocardiogram preoperatively showed an EF of 40 to 45% with mild to moderate global hypokinesis and severe inferior hypokinesis and concentric LVH with grade 1 diastolic dysfunction and mild reduction in right ventricular function. Notified cardiology of the intraoperative events yesterday and will await their input. His troponin was mildly elevated but in the absence of EKG changes or ongoing chest pain, do not think we need additional intervention will defer to cardiology. 3. Pulmonary: The patient is currently being treated for pneumonia. See antibiotics under ID below. Continue to wean oxygen as tolerated. Bronchodilators as needed. Patient is on chronic steroids for unclear reasons. Would not recommend chronic prednisone for obstructive lung disease and this should be tapered off if possible. Recommend follow-up chest x-ray in 2 to 4 weeks to document resolution of the airspace opacity. Outpatient PFTs may be appropriate as well 4. ID: Continue antibiotics for pneumonia. Currently on cefepime which should be adequate. Anticipate 7-day course. Procalcitonin has decreased significantly since presentation. 5. Renal: Mild hyponatremia: Continue to follow at this point time. Mild hypocalcemia possibly related to low albumin. Given hemodynamic stability will defer replacement at this time 6. Endo: Chronic prednisone use. At risk for relative adrenal insufficiency. Off pressors so no indication for stress dose steroids 7. GI: Advancing diet as tolerated 8. Arterial insufficiency: Status post amputation. Wound management per vascular surgery. Will require PT and OT evaluations. 9. Heme-onc: Thrombocytopenia: This was present preoperatively but is decreasing slowly. Continue to trend for now. Patient is mildly anemic but requires no interventions. The patient previously was established with palliative care and was DNR/DNI. Reinitiate DNR/DNI status Patient is stabilized significantly and can transfer out of the ICU. We will sign off at this point in time. Feel free to contact us with additional criti angela care issues. Admission and Anticipated Discharge Date Admission Date: June 11, 2020 Subjective Patient seen and examined. EMR reviewed. Discussed with ICU nurse at bedside and with patient. He is extubated and down to nasal cannula. He is complaining of some pain at his amputation site as well as some mild intermittent chest discomfort related to the CPR. Otherwise no new complaints. He is tolerating a diet without difficulty. Is not having any significant shortness of breath. No significant sputum production. Review of Systems Review of Systems: All systems reviewed & are unremarkable except as noted in HPI & below Physical Exam Constitutional: + cachectic and + frail appearing; no acute distress Neck: trachea midline, no thyromegaly Respiratory: normal respiratory effort Crackles at the right lung base Cardiovascular: RRR, no murmur, no edema Gastrointestinal (Abdomen): normal bowel sounds, soft, nontender, no hepatosplenomegaly Musculoskeletal: AKA site dressed. Skin: no rashes, warm and dry Neurologic: Nonfocal exam Lymphatic: no cervical lymphadenopathy Results & Data Results & Data ([facility]) Vital Signs (Past 12 Hours) Vital Signs Temp Pulse Resp BP Pulse Ox 06/17/20 04:07 36.6 C 06/17/20 04:00 70 17 96/61 L 89 L 06/17/20 03:00 78 20 105/66 89 L 06/17/20 02:01 78 17 89 L 06/17/20 02:00 79 24 102/62 89 L 06/17/20 01:00 74 19 90/62 L 90 06/17/20 00:18 36.6 C 06/17/20 00:01 77 23 88 L 06/17/20 00:00 76 16 95/62 L 89 L 06/16/20 23:00 76 17 89/57 L 90 06/16/20 22:00 77 23 91/60 L 90 06/16/20 21:00 78 19 100/67 90 06/16/20 20:01 72 18 89 L 06/16/20 20:00 36.7 C 76 19 96/62 L 89 L Laboratory Results 06/17/20 05:05 06/17/20 05:05 Diagnostic Findings No new imaging Coding Level of Care Code 90590 Subseq Hosp Care Lvl 3 Diagnoses COPD (chronic obstructive pulmonary disease) J44.9 COPD type: unspecified COPD Ischemia of right lower extremity I99.8 Pneumonia J18.9 Laterality: right Lung location: lower lobe of lung Pneumonia type: due to unspecified organism Sepsis A41.9 Sepsis acute organ dysfunction status: without acute organ dysfunction Sepsis type: sepsis due to unspecified organism Cardiac arrest I46.9 (1) COPD (chronic obstructive pulmonary disease) COPD type: unspecified COPD Qualified Code(s): J44.9 - Chronic obstructive pulmonary disease, unspecified (2) Pneumonia Laterality: right Lung location: lower lobe of lung Pneumonia type: due to unspecified organism Qualified Code(s): J18.9 - Pneumonia, unspecified organism (3) Sepsis Sepsis acute organ dysfunction status: without acute organ dysfunction Sepsis type: sepsis due to unspecified organism Qualified Code(s): A41.9 - Sepsis, unspecified organism
[2020-06-17] MEDS: METHADONE HCL 5 MG TAB PO SCH ×2 (08:17→22:17)
[2020-06-17] MEDS: FLUTICASONE FUROATE 200MCG 14 PUFFS/INHALER INH SCH (08:17)
[2020-06-17] MEDS: UMECLIDINIUM/VILANTEROL 62.5/25MCG 7 PUFFS/INHALER INH SCH (08:18)
[2020-06-17] MEDS: predniSONE 5 MG TAB PO SCH (08:19)
[2020-06-17] MEDS: RANOLAZINE 500 MG ER TAB PO SCH (08:19)
[2020-06-17] MEDS: ASPIRIN 81 MG ECTAB PO SCH (08:20)
[2020-06-17] MEDS: MONTELUKAST SODIUM 10 MG TABLET PO SCH (08:22)
[2020-06-17] MEDS: SENNA 8.6 MG TAB PO SCH (08:23)
--- NOTE | 2020-06-17 09:48 | Surgery Progress Note ---
Date of Service June 17, 2020 Assessment & Plan (1) Cardiac arrest: Chest aching most likely from possible rib fracture from compressions (2) Amputation above knee: Dressing intact, dry and clean. Will check wound on Mondy Will transfer to floor. Admission and Anticipated Discharge Date Admission Date: June 11, 2020 Subjective Patient complaining of incisional and aching in his chest. No phantom pain. Physical Exam Skin: + incision (Dressing dry and clean) Psychiatric: Orientation: alert and oriented x 3 Results & Data ([facility]) Vital Signs (Past 12 Hours) Vital Signs Temp Pulse Resp BP Pulse Ox 06/17/20 07:46 70 06/17/20 04:07 36.6 C 06/17/20 04:00 70 17 96/61 L 89 L 06/17/20 03:00 78 20 105/66 89 L 06/17/20 02:01 78 17 89 L 06/17/20 02:00 79 24 102/62 89 L 06/17/20 01:00 74 19 90/62 L 90 06/17/20 00:18 36.6 C 06/17/20 00:01 77 23 88 L 06/17/20 00:00 76 16 95/62 L 89 L 06/16/20 23:00 76 17 89/57 L 90 06/16/20 22:00 77 23 91/60 L 90
[2020-06-17] MEDS: CEFEPIME 2,000 MG in SYRINGE 0 ML IV SCH ×2 (11:10→23:41)
[2020-06-17] MEDS: ENOXAPARIN INJ 40 MG/0.4 ML SYR SQ SCH (11:10)
--- NOTE | 2020-06-17 14:34 | Hospitalist Progress Note ---
Date of Service June 17, 2020 Assessment & Plan (1) Pneumonia: Sukhjinder is a 75-year-old male with past medical history significant for CAD, HTN, HLD, extensive smoking history and COPD, hemorrhoids admitted for severe sepsis with acute hypoxic respiratory failure, with initial complaint of RLE pain with findings consistent with critical limb ischemia. Now s/p right AKA. 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 Required brief ICU stay. Please see title officer notes for further details. - Palliative care recommendation for pain control: - Continue methadone and gabapentin. Monitor for sedation. If lethargic, hold methadone. - Continue Dilaudid PRN for now - Tylenol as needed for pain - DVT ppx with Lovenox 40mg SQ daily Severe Sepsis Secondary to PNA (Aspiration vs. CAP) - patient demonstrating improvement clinically and with labs - Leukocytosis with left shift, procalcitonin still appreciable, but improving - CXR (06/11, ), CTA significant for RLL consolidation, emphysema - Ordered speech therapy consult for swallowing evaluation: no issues swallowing - Continue Cefepime IV until 06/19 - Repeat CXR 06/18 Acute Hypoxemic Respiratory Failure - secondary to PNA, fluid overload (reduced EF), COPD with significant tobacco abuse history - Extubated 06/16 following procedure without difficulty - Continue supplemental O2 as needed (06/17: NC @ 6L) - Titrate O2 to maintain SaO2 > 88-92% - COPD, PNA, volume management as noted COPD/Emphysema with Cor Pulmonale - Significant past smoking history: >55 pack-years (1+ ppd x >55 years) - Continue home montelukast, prednisone 5 mg p.o. twice daily, Anoro Ellipta inhaler. - Levalbuterol and nebulizer treatment PRN - Pulmonology assisted in care - will require pulmonology appointment as o utpatient AND PFTs - Echocardiogram demonstrating dilated RV with mild to moderate reduced systolic function Episode of Atrial Fibrillation - Noted to be in atrial fibrillation with RSR on 06/12, resolved s/p metoprolol - Continues to remain in NSR since that time - Continue metoprolol succinate 12.5mg PO BID - Continue to monitor on telemetry - Cardiology consulted, appreciate insight and recommendations: - While CHADSVASC is 3 (and therefore, by scoring, anticoagulation is clinically indicated), this single episode of AFib occurred during extenuating circumstances (ischemia, AHRF, hypovolemia) - Given persistence of NSR, will hold from starting anticoagulation at this time CAD with Chronic Systolic CHF -- in ED, patient received fluid bolus which subsequently resulted in dyspnea - ME approximately 4 years ago --> attempted PCI, vessel ruptured, PCI aborted - TTE demonstrated moderate RV dilation w/ mild to moderate reduction of systolic function. LV sys fxn mild to moderately reduced as well. EF 40-45%. Grade I diastolic dysfunction. Mild mitral and tricuspid reguritation - Continue isosorbide mononitrate, ranolazine, metoprolol, lisinopril - Holding ASA in setting of BRBpR --> anticipate restarting prior to discharge - Cardiology consulted: -- Diurese as needed with IV Lasix if weight climbs or fluid retention. -- Goal to keep SpO2 saturations above 94%. -- Monitor I&O's, body weights. -- Continue beta suzanna, long-acting nitrate, ranolazine, and ACEI. Rectal Bleeding - While in ER patient had a BM with small amount of bright red blood in stool. - Has a history of hemorrhoids, bleed likely secondary to this. - Hgb stable on repeat checks - Holding ASA in setting of BRBpR --> anticipate restarting prior to discharge HLD: - Continue home atorvastatin HTN: - Now demonstrating normotension on repeat checks - Continue home isosorbide mononitrate, metoprolol, HCTZ, lisinopril CODE STATUS: DNR/DNI FEN/GI: Heart healthy, low-sodium diet DVT prophylaxis: Lovenox 40mg SQ daily Dispo: Telemetry for continuous cardiac and oxygen monitoring in the setting of acute hypoxic respiratory failure and severe sepsis (2) Peripheral vascular disease: (3) Sepsis with acute hypoxic respiratory failure: (4) Critical lower limb ischemia: Admission and Anticipated Discharge Date Admission Date: June 11, 2020 Supervising Physician Co-Signing Physician Notes Resident Physician Supervision Note: I independently interviewed and examined the patient and verified the flynn history and physical, reviewed labs and image studies, discussed the case with the resident Dr. Worley and agree with the findings and care plan. Subjective Reports feeling well this AM and actually "much improved" from a general and breathing perspective. Says that he's feeling less winded compared to beforehand. Does describe having some chest wall pain secondary to his CPR yesterday, but otherwise no discomfort elsewhere. Has been tolerating foods without difficulty. Endorses having a good appetite. No other concerns he has this AM. He does note that the first thing he wants to do when he gets out of here is "smoke a cigarette." We discussed that this is likely contributing to his overall shortness of breath. He is not interested in cessation at this time. Review of Systems Review of Systems: as per HPI Physical Exam Constitutional: Well-appearing 75 year old gentleman who is freely engaged in our interaction, making good eye contact. He appears somewhat tired, but with good energy. Responds to all of my questions appropriately. He does have restraints locked to his bed. NAD. Respiratory: Nasal cannula in place. Mildly increased respiratory effort, symmetric expansion of the chest. Lungs demonstrate significant crackles in the right lower lung lua with appreciable egophony. This does extend upward into the middle R lung field. [place] largely WNL. Left lung demonstrates some diminished breath sounds globally, but without significant ausculatory findings. No conversational dyspnea. Cardiovascular: NRRR. S1/S2 present without m/r/g. Gastrointestinal (Abdomen): normal bowel sounds, soft, nontender, no hepatosplenomegaly Skin: [id number] with c/d/i dressings on R side. No significant TTP or erythema around the proximal portion of the thigh. LLE appears well perfused without peripheral edema. Results & Data Results & Data ([facility]) Vital Signs (Past 12 Hours) Vital Signs Temp Pulse Resp BP Pulse Ox 06/17/20 13:00 90 21 124/79 91 06/17/20 12:00 87 20 114/68 90 06/17/20 11:00 74 22 116/72 91 06/17/20 10:00 79 15 119/74 90 06/17/20 09:00 95 H 16 125/82 06/17/20 08:00 36.8 C 83 18 114/76 90 02/13/21 07:46 70 06/17/20 07:00 77 19 118/71 06/17/20 06:01 73 17 90 06/17/20 06:00 73 16 108/65 88 L 06/17/20 05:00 79 20 106/66 92 06/17/20 04:07 36.6 C 06/17/20 04:00 70 17 96/61 L 89 L 06/17/20 03:00 78 20 105/66 89 L Resident Activity Tracking Resident Involvement: Resident Care Provided Care Provided: Adult Hospital Medicine (1) Pneumonia Laterality: right Lung location: lower lobe of lung Pneumonia type: due to unspecified organism Qualified Code(s): J18.9 - Pneumonia, unspecified organism
[2020-06-17] MEDS ORDERED: MAG SULFATE 50% 1GM/2ML VIAL IV ONE (15:18)
[2020-06-17] MEDS ORDERED: DEXTROSE 5% 100 ML BAG IV ONE (15:18)
[2020-06-17] MEDS: GABAPENTIN 100 MG CAP PO SCH (22:17)
[2020-06-17] MEDS ORDERED: CETIRIZINE HCL 10 MG TABLET PO ONE (22:40)
[2020-06-18] MEDS: HYDROmorphone INJ 0.5 MG/0.5 ML SYR IV PRN ×2 (04:49→12:10)
[2020-06-18] MEDS: guaiFENesin 600 MG TABCR PO PRN ×2 (06:18→21:21)
[2020-06-18 07:12] LABS: Hematocrit (blood only) 35.8 % (42-52); Mean Corpuscular Hemoglobin 30.4 pg (25-34); Mean Corpuscular Hgb Conc 33.5 g/dL (32-36); Mean Corpuscular Volume 90.6 fL (80-100); Platelet Count 114 K/uL (130-400); RDW Coefficient of Variation 14.6 % (11.5-14.5); RDW Standard Deviation 48.7 fL (36.4-46.3); Red Blood Count 3.95 M/uL (4.7-6.1); White Blood Count 24.64 K/uL (4.8-10.8)
[2020-06-18 07:13] LABS: ALC (manual) 1.92 K/uL (1.2-3.4); Acanthocytes 1+; Basophils # (manual) 0.22 K/uL (0-0.2); Basophils % (manual) 0.9 %; Hypogranular Neutrophils 1+; Lymphocytes # (manual) 1.92 K/uL (1.2-3.4); Lymphocytes % (manual) 7.8 %; Monocytes % (manual) 6.9 %; Neutrophils % (manual) 84.4 %; Platelet Estimate Decreased (Normal)
[2020-06-18 07:24] LABS: BUN Creatinine Ratio 54.6 (10-20); Calcium 8.3 mg/dl (8.5-10.1); Creatinine Clr Calc Pharmacy 82.9 ml/min; Est GFR (African American) 118.1; Est GFR (Non-African American) 101.9; Magnesium 2.4 mg/dl (1.8-2.4); Potassium 4.2 mmol/L (3.5-5.1)
[2020-06-18] MEDS: METHADONE HCL 5 MG TAB PO SCH ×2 (08:16→20:01)
[2020-06-18] MEDS: SENNA 8.6 MG TAB PO SCH (08:17)
[2020-06-18] MEDS: CETIRIZINE HCL 10 MG TABLET PO SCH (08:19)
[2020-06-18] MEDS: ENOXAPARIN INJ 40 MG/0.4 ML SYR SQ SCH (10:07)
[2020-06-18] MEDS ORDERED: methylPREDNISolone 40 MG in SYRINGE 0 ML IV ONE (10:30)
--- NOTE | 2020-06-18 11:30 | Hospitalist Progress Note ---
Date of Service June 18, 2020 Assessment & Plan (1) Pneumonia: Sukhjinder is a 75-year-old male with past medical history significant for CAD, HTN, HLD, extensive smoking history and COPD, hemorrhoids admitted for severe sepsis with acute hypoxic respiratory failure, with initial complaint of RLE pain with findings consistent with critical limb ischemia. Now s/p right AKA. 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 Required brief ICU stay. Please see oven heater notes for further details. - Palliative consulted, appreciate insight into care: - Continue methadone and gabapentin. Monitor for sedation. If lethargic, hold methadone. - Continue Dilaudid PRN for now - Tylenol as needed for pain - DVT ppx with Lovenox 40mg SQ daily Severe Sepsis Secondary to PNA (Aspiration vs. CAP) - Leukocytosis with left shift, procalcitonin still appreciable -- improvement compared to earlier in course - CXR (06/11, ), CTA significant for RLL consolidation, emphysema - Ordered speech therapy consult for swallowing evaluation: no issues swallowing - Continue Cefepime IV until 06/19 - Consider repeat CXR if worsening respiratory status or minimal improvement on 06/19 Acute Hypoxemic Respiratory Failure - secondary to PNA, fluid overload (reduced EF), COPD with significant tobacco abuse history. Without much improvement 06/17-. - Extubated 06/16 following procedure without difficulty - Continues to require NC >5L to maintain saturations 90-92% - Titrate O2 to maintain SaO2 > 88-92% - COPD, PNA, volume management as noted COPD/Emphysema with Cor Pulmonale - Significant past smoking history: >55 pack-years (1+ ppd x >55 years) - Continue home montelukast, prednisone 5 mg p.o. twice daily, Anoro Ellipta inhaler. - Levalbuterol and nebulizer treatment PRN - Methylprednisolone IV x 1 for possible exacerbation considering increased oxygen needs - Symptomatic Treatment/Augmentation: - Flutter valve t.i.d. added - Mucinex, Zyrtec to aid with upper/lower airway congestion - Pulmonology assisted in care - will require pulmonology appointment as outpatient AND PFTs - Echocardiogram demonstrating dilated RV with mild to moderate reduced systolic function Episode of Atrial Fibrillation - Noted to be in atrial fibrillation with RSR on 06/12, resolved s/p metoprolol - Continues to remain in NSR since that time - Continue metoprolol succinate 12.5mg PO BID - Continue to monitor on telemetry - Cardiology consulted, appreciate insight and recommendations: - While CHADSVASC is 3 (and therefore, by scoring, anticoagulation is clinically indicated), this single episode of AFib occurred during extenuating circumstances (ischemia, AHRF, hypovolemia) - Given persistence of NSR, will hold from starting anticoagulation at this time CAD with Chronic Systolic CHF -- in ED, patient received fluid bolus which subsequently resulted in dyspnea - ME approximately 4 years ago --> attempted PCI, vessel ruptured, PCI aborted - TTE demonstrated moderate RV dilation w/ mild to moderate reduction of systolic function. LV sys fxn mild to moderately reduced as well. EF 40-45%. Grade I diastolic dysfunction. Mild mitral and tricuspid reguritation - Continue isosorbide mononitrate, ranolazine, metoprolol, lisinopril - Holding ASA in setting of BRBpR --> anticipate restarting prior to discharge - Cardiology consulted: -- Diurese as needed with IV Lasix if weight increases or fluid retention. -- Goal to keep SpO2 saturations above 94%. -- Monitor I&O's, body weights. -- Continue beta suzanna, long-acting nitrate, ranolazine, and ACEI. Rectal Bleeding - While in ER patient had a BM with small amount of bright red blood in stool. - Has a history of hemorrhoids, bleed likely secondary to this. - Hgb stable on repeat checks - Holding ASA in setting of BRBpR --> anticipate restarting prior to discharge HLD: - Continue home atorvastatin HTN: - Now demonstrating normotension on repeat checks - Continue home isosorbide mononitrate, metoprolol, HCTZ, lisinopril CODE STATUS: DNR/DNI FEN/GI: Heart healthy, low-sodium diet DVT prophylaxis: Lovenox 40mg SQ daily Dispo: Telemetry for continuous cardiac and oxygen monitoring in the setting of acute hypoxic respiratory failure and severe sepsis (2) Peripheral vascular disease: (3) Sepsis with acute hypoxic respiratory failure: (4) Critical lower limb ischemia: Admission and Anticipated Discharge Date Admission Date: June 11, 2020 Supervising Physician Co-Signing Physician Notes Resident Physician Supervision Note: I independently interviewed and examined the patient and verified the flynn history and physical, reviewed labs and image studies, discussed the case with the resident Dr. Worley and agree with the findings and care plan. Subjective Patient did report nasal/upper chest congestion last night, for which he requested and received Mucinex and Zyrtec. Was able to sleep through the night comfortably thereafter. At the bedside this morning, patient does say that he does not feel great. Says that his breathing is "so-so." He says that it is not necessarily better than before, but not necessarily worse either. He says that he feels like he has a lot of congestion in his upper chest. He denies feeling short of breath throughout our conversation. He denies any chest pain or palpitations. Does continue to endorse some soreness in his chest wall where they performed CPR. He says that his appetite is poor, not really wanting to eat or drink much. Denies any nausea. No other concerns this morning. Review of Systems Review of Systems: As per HPI Physical Exam Constitutional: Tired appearing 75-year-old male who is lying back in his hospital bed, in and out of sleep throughout our discussion. On formal questioning, he is alert and oriented x4. There is no obvious conversational dyspnea. He does intermittently cough. No acute distress. Restraints in place with correctional officers at bedside Respiratory: Mildly increased respiratory effort. Symmetric expansion of the chest. There is inward caving of his sternum following CPR that is visible today. There continues to be some crackles in his right lower lung field, with diminished breath sounds in his other lung lua. Compared to yesterday, his right lower lobe does sound somewhat improved. He has an intermittent wet cough, but is not able to bring anything up. Cardiovascular: Auscultation of cardiac sounds were difficult to appreciate given louder breath sounds today. Of what could be heard, normal rate and regular rhythm, S1 and S2 are present without murmurs rubs or gallops. There is no appreciable edema in the left lower extremity. Jugular venous pulse difficult to visualize, appears below the level of the clavicle when seated up at 90 degrees. Hepatojugular reflex negative. Gastrointestinal (Abdomen): Normoactive bowel sounds. Abdomen is soft, nontender, nondistended to palpation. Musculoskeletal: Right lower extremity with above-knee amputation, dressings are clean dry and intact. Results & Data Results & Data ([facility] [place]) Vital Signs (Past 12 Hours) Vital Signs Temp Pulse Pulse Pulse Resp BP BP 06/18/20 07:30 36.7 C 86 18 138/80 06/18/20 07:00 85 06/18/20 04:00 36.5 C 93 H 22 134/89 06/18/20 00:00 36.8 C 81 20 150/96 H Pulse Ox 06/18/20 07:30 91 06/18/20 07:00 06/18/20 04:00 91 06/18/20 00:00 92 Resident Activity Tracking Resident Involvement: Resident Care Provided Care Provided: Adult Hospital Medicine (1) Pneumonia Laterality: right Lung location: lower lobe of lung Pneumonia type: due to unspecified organism Qualified Code(s): J18.9 - Pneumonia, unspecified organism
[2020-06-18] MEDS: CEFEPIME 2,000 MG in SYRINGE 0 ML IV SCH ×2 (11:36→20:00)
--- NOTE | 2020-06-18 13:54 | XRay Report ---
XR chest 1V portable CLINICAL HISTORY: Shortness of breath. Cough. COMPARISON STUDY: 06/16/2020 FINDINGS: The endotracheal tube has been removed. There is a left subclavian central venous catheter. The patient is hyperinflated. The heart is normal in size. There is minimal improvement in the previ ously described right lower lung zone airspace opacities. There is pulmonary emphysema.[A small right pleural effusion is suspected. IMPRESSION: 1. Pulmonary emphysema 2. Interval removal of endotracheal tube 3. Minimal improvement in the right lower lung zone pulmonary airspace opacities ACT 112: Negative or not required by law. Electronically signed by: Nura Chairez M.D. 06/18/2020 1:53 PM
[2020-06-18] MEDS ORDERED: POTASSIUM PHOS 3 MMOL/1 ML INFUSION IV ONE (17:04)
[2020-06-18] MEDS ORDERED: POTASSIUM PHOSPHATE 9 MMOL in SODIUM CHLORIDE 0.9% 250 ML IV ONE (17:15)
[2020-06-18] MEDS: GABAPENTIN 100 MG CAP PO SCH (20:00)
[2020-06-18] MEDS: MoRPHine SULFATE 2 MG/ML CARP IV PRN (22:27)
[2020-06-19] MEDS: CEFEPIME 2,000 MG in SYRINGE 0 ML IV SCH ×2 (03:39→17:49)
[2020-06-19 06:34] LABS: Mean Corpuscular Hgb Conc 33.6 g/dL (32-36)
[2020-06-19 07:07] LABS: ALC (manual) 0.49 K/uL (1.2-3.4); ANC (manual) 28.07 K/uL (1.4-6.5); BUN Creatinine Ratio 44.3 (10-20); Calcium 8.5 mg/dl (8.5-10.1); Creatinine Clr Calc Pharmacy 94.2 ml/min; Est GFR (African American) 127.8; Est GFR (Non-African American) 110.3; Hematocrit (blood only) 34.2 % (42-52); Hemoglobin 11.5 g/dL (14.0-18.0); Hypogranular Neutrophils 1+; Lymphocytes # (manual) 0.49 K/uL (1.2-3.4); Lymphocytes % (manual) 1.7 %; Magnesium 2.2 mg/dl (1.8-2.4); Mean Corpuscular Hemoglobin 30.6 pg (25-34); Monocytes # (manual) 0.26 K/uL (0.11-0.59); Monocytes % (manual) 0.9 %; Neutrophils # (manual) 28.07 K/uL (1.4-6.5); Neutrophils % (manual) 97.4 %; Phosphorus 2.3 mg/dl (2.5-4.9); Platelet Count 118 K/uL (130-400); Platelet Estimate Decreased (Normal); Potassium 4.6 mmol/L (3.5-5.1); RDW Coefficient of Variation 14.5 % (11.5-14.5); RDW Standard Deviation 48.3 fL (36.4-46.3); Red Blood Count 3.76 M/uL (4.7-6.1); White Blood Count 28.82 K/uL (4.8-10.8)
[2020-06-19] MEDS: METHADONE HCL 5 MG TAB PO SCH ×2 (08:34→20:27)
[2020-06-19] MEDS: ENOXAPARIN INJ 40 MG/0.4 ML SYR SQ SCH (08:35)
[2020-06-19] MEDS: CETIRIZINE HCL 10 MG TABLET PO SCH (08:35)
[2020-06-19] MEDS: SENNA 8.6 MG TAB PO SCH (08:35)
[2020-06-19] MEDS: MoRPHine SULFATE 4 MG/ML 1 ML CARP\\VIAL IV PRN (08:41)
--- NOTE | 2020-06-19 09:04 | Hospitalist Progress Note ---
Date of Service June 19, 2020 Assessment & Plan (1) Pneumonia: Sukhjinder is a 75-year-old male with past medical history significant for CAD, HTN, HLD, extensive smoking history and COPD, hemorrhoids admitted for severe sepsis with acute hypoxic respiratory failure, with initial complaint of RLE pain with findings consistent with critical limb ischemia. Now s/p right AKA. 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 Required brief ICU stay. 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 - Palliative consulted, appreciate insight into care: - Continue methadone and gabapentin. Monitor for sedation. If lethargic, hold methadone. - Continue Dilaudid PRN for now - Tylenol as needed for pain - DVT ppx with Lovenox 40mg SQ daily Severe Sepsis Secondary to PNA (Aspiration vs. CAP) - Leukocytosis with left shift, procalcitonin still appreciable -- improvement compared to earlier in course - CXR (), CTA significant for RLL consolidation, emphysema - Ordered speech therapy consult for swallowing evaluation: no issues swallowing - Respiratory status not worsening but no clear improvement either--patient with cough productive of yellow sputum - Continue Cefepime IV - Of note, patient does also have underlying right side heart dysfunction - see echo results below Acute Hypoxemic Respiratory Failure - secondary to PNA, fluid overload (reduced EF), COPD with significant tobacco abuse history. Without much improvement 06/17-. - Extubated 06/16 following procedure without difficulty - Continues to require NC >5L to maintain saturations 90-92% - Titrate O2 to maintain SaO2 > 88-92% - Symptomatic Treatment/Augmentation: - Flutter valve ordered - Mucinex, Zyrtec to aid with upper/lower airway congestion - Methylprednisolone 40mg IV x 1 on 06/18 - COPD, PNA, volume management as noted - When appropriate, attempt wean off supplemental O2 COPD/Emphysema with Cor Pulmonale - Significant past smoking history: >55 pack-years (1+ ppd x >55 years) - Continue home montelukast, prednisone 5 mg p.o. twice daily, Anoro Ellipta inhaler. - Levalbuterol and nebulizer treatment PRN - Methylprednisolone IV x 1 as above - Pulmonology assisted in care - will require pulmonology appointment as outpatient AND PFTs - Echocardiogram demonstrating dilated RV with mild to moderate reduced systolic function Episode of Atrial Fibrillation - Noted to be in atrial fibrillation with RSR on 06/12, resolved s/p metoprolol - Continues to remain in NSR since that time - Continue metoprolol succinate 12.5mg PO BID - Continue to monitor on telemetry - Cardiology consulted, appreciate insight and recommendations: - While CHADSVASC is 3 (and therefore, by scoring, anticoagulation is clinically indicated), this single episode of AFib occurred during extenuating circumstances (ischemia, AHRF, hypovolemia) - Given persistence of NSR, will hold from starting anticoagulation at this time CAD with Chronic Systolic CHF -- in ED, patient received fluid bolus which subsequently resulted in dyspnea - MT approximately 4 years ago --> attempted PCI, vessel ruptured, PCI aborted - TTE demonstrated moderate RV dilation w/ mild to moderate reduction of systolic function. LV sys fxn mild to moderately reduced as well. EF 40-45%. Grade I diastolic dysfunction. Mild mitral and tricuspid reguritation - Continue isosorbide mononitrate, ranolazine, metoprolol, lisinopril - Holding ASA in setting of BRBpR --> anticipate restarting prior to discharge - Cardiology consulted: -- Diurese as needed with IV Lasix if weight climbs or fluid retention. -- Goal to keep SpO2 saturations above 94%. -- Monitor I&O's, body weights. -- Continue beta suzanna, long-acting nitrate, ranolazine, and ACEI. Rectal Bleeding - While in ER patient had a BM with small amount of bright red blood in stool. - Has a history of hemorrhoids, bleed likely secondary to this. - Hgb stable on repeat checks - Holding ASA in setting of BRBpR --> anticipate restarting prior to discharge HLD: - Continue home atorvastatin HTN: - Now demonstrating normotension on repeat checks - Continue home isosorbide mononitrate, metoprolol, HCTZ, lisinopril CODE STATUS: DNR/DNI FEN/GI: Heart healthy, low-sodium diet DVT prophylaxis: Lovenox 40mg SQ daily Dispo: Med/surg for further antibiotic treatment (2) Peripheral vascular disease: (3) Sepsis with acute hypoxic respiratory failure: (4) Critical lower limb ischemia: Admission and Anticipated Discharge Date Admission Date: June 11, 2020 Supervising Physician Co-Signing Physician Notes I personally examined the patient and verified all flynn points of history and exam, discussed case, and agree with decision making with Dr Mason. Generally feeling okay. Still coughing with significant sputum. Otherwise no complaints. Vitals noted, in general he is awake and alert pleasant no distress. HEENT normocephalic atraumatic mucous membranes are moist. Breathing is unlabored no accessory muscle use, he does have coughing with little bit of sputum. Right lower extremity AKA dressed, dressing appears to be clean and dry with no tracking erythema on the surrounding skin. Sepsis/critical limb ischemia status post AKA, pneumoniacontinue current care, safe for transfer to medical. PT/OT. Otherwise as above. Subjective No acute events overnight, Telemetry with NSR. Patient says he is doing overall well. Reports he is a little sore around his surgical site. He still feels somewhat short of breath and says he has cough with significant yellowish production. Some chest pain when taking deep breaths, he expresses it does not feel like his heart, more like it hurts where they did compressions. Says he has not been able to eat much because he feels like he can''t swallow very well. Denies sore throat, choking. No palpitations, n/v, diarrhea. Review of Systems Review of Systems: All systems reviewed & are unremarkable except as noted in Subjective Physical Exam Constitutional: cooperative and comfortable; no acute distress Respiratory: + cough (productive of yellow sputum), able to speak in complete sentences and symmetric chest movement; no retractions and does not use accessory muscles Auscultation: + diminished lung sounds and + crackles (RLL) Cardiovascular: RRR, no murmur, no edema Gastrointestinal (Abdomen): normal bowel sounds, soft, nontender, no hep atosplenomegaly Musculoskeletal: Right lower extremity with [id number], clean/dry/intact dressings Psychiatric: A+Ox3, euthymic affect Results & Data Results & Data ([facility]) Vital Signs (Past 12 Hours) Vital Signs Temp Pulse Pulse Resp BP Pulse Ox 02/15/21 07:56 36.5 C 102 H 22 162/93 H 92 06/19/20 07:00 78 06/19/20 03:44 36.9 C 83 16 149/75 H 92 Resident Activity Tracking Resident Involvement: Resident Care Provided Care Provided: Adult Hospital Medicine (1) Pneumonia Laterality: right Lung location: lower lobe of lung Pneumonia type: due to unspecified organism Qualified Code(s): J18.9 - Pneumonia, unspecified organism
--- NOTE | 2020-06-19 17:21 | Palliative Care Progress Note ---
Date of Service June 19, 2020 Assessment & Plan (1) Neuropathic pain: Controlled on low dose methadone with gabapentin at HS. No sedation noted Continue current dosing and monitor. Pt utilized ONE dose of IV Morphine over past 24 hours. (2) Palliative care encounter: He is DNR. Pt went asystole during surgical procedure. ROSC achieved. Plan is when medically stable, will be transferred to a [facility] acute rehab Admission and Anticipated Discharge Date Admission Date: June 11, 2020 Subjective patient relatively stable. No real acute events. He denies pain, aside from chest pain from where CPR was performed. Please see A/P for more details Review of Systems Review of Systems: [place] Symptom Assessment Scale Pain 0/3 Dyspnea 1/3 Nausea 0/3 Anxiety 0/3 Drowsiness 0/3 Palliative Performance Score 30% Physical Exam Constitutional: + thin, + frail appearing and cooperative; not ill appearing Respiratory: normal respiratory effort, lungs clear to auscultation Auscultation: + diminished lung sounds Cardiovascular: RRR, no murmur, no edema Vessels: femoral pulses present (right femoral) Gastrointestinal (Abdomen): normal bowel sounds, soft, nontender, no hepatosplenomegaly Musculoskeletal: right AKA. Skin: + pallor Psychiatric: A+Ox3, euthymic affect Genitourinary: indwelling olmedo catheter Results & Data ([facility]) Vital Signs (Past 12 Hours) Vital Signs Temp Pulse Pulse Resp BP Pulse Ox 06/19/20 14:36 37.1 C 89 20 145/85 H 91 06/19/20 11:48 36.6 C 90 20 146/76 H 06/19/20 07:56 36.5 C 102 H 22 162/93 H 92 06/19/20 07:00 78 PG Care Time/CCT Total # of Minutes Spent Total Time Spent with Patient: Total time spent is greater than 50% in coordination of care (as documented) at patient's floor/unit and/or counseling patient: 35 Coding Level of Care Code 42140 Subseq Hosp Care Lvl 3 Diagnoses Neuropathic pain M79.2 Palliative care encounter Z51.5 Time Spent (min) 35 Time Spent Midlevel Total time spent 35 minutes with > 50% of that time spent assessing the patient, discussing goals of care with patient and collaborating with IDT
[2020-06-19] MEDS: MoRPHine SULFATE 2 MG/ML CARP IV PRN (18:10)
--- NOTE | 2020-06-19 18:28 | Billing Data ---
Date of Service June 19, 2020 Coding Level of Care Code 70976 Subseq Hosp Care Lvl 3
[2020-06-19] MEDS: GABAPENTIN 100 MG CAP PO SCH (20:52)
--- NOTE | 2020-06-19 22:47 | Billing Data ---
Date of Service June 19, 2020 Coding Level of Care Code 02468 Initial Inpt Care Lvl 3
[2020-06-20] MEDS: CEFEPIME 2,000 MG in SYRINGE 0 ML IV SCH ×3 (02:00→16:30)
[2020-06-20] MEDS: MoRPHine SULFATE 2 MG/ML CARP IV PRN ×2 (02:00→10:52)
[2020-06-20] MEDS: guaiFENesin 600 MG TABCR PO PRN (02:04)
--- NOTE | 2020-06-20 07:02 | Hospitalist Progress Note ---
Date of Service June 20, 2020 Assessment & Plan (1) Pneumonia: Sukhjinder is a 75-year-old male with past medical history significant for CAD, HTN, HLD, extensive smoking history and COPD, hemorrhoids admitted for severe sepsis with acute hypoxic respiratory failure, with initial complaint of RLE pain with findings consistent with critical limb ischemia. Now s/p right AKA. Severe Sepsis Secondary to PNA (Aspiration vs. CAP) - Leukocytosis with left shift, procalcitonin still appreciable -- improvement compared to earlier in course - CXR (06/11, ), CTA significant for RLL consolidation, emphysema - Ordered speech therapy consult for swallowing evaluation: no issues swallowing - Respiratory status not worsening but no clear improvement either--patient with cough productive of yellow sputum - Leukocytosis also increasing again today after trending down - Continue Cefepime IV and will restart vancomycin - Of note, patient does also have underlying right side heart dysfunction - see echo results below Acute Hypoxemic Respiratory Failure - secondary to PNA, fluid overload (reduced EF), COPD with significant tobacco abuse history. Without much improvement 06/17-. 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 Required brief ICU stay. 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 - Palliative consulted, appreciate insight into care: - Controlled on low dose methadone with gabapentin at HS. No sedation noted Continue current dosing and monitor. - DVT ppx with Lovenox 40mg SQ daily COPD/Emphysema with Cor Pulmonale - Significant past smoking history: >55 pack-years (1+ ppd x >55 years) - Continue home montelukast, prednisone 5 mg p.o. twice daily, Anoro Ellipta inhaler. - Levalbuterol and nebulizer treatment PRN - Methylprednisolone IV x 1 as above - Pulmonology assisted in care - will require pulmonology appointment as outpatient AND PFTs - Echocardiogram demonstrating dilated RV with mild to moderate reduced systolic function Episode of Atrial Fibrillation - Noted to be in atrial fibrillation with RSR on 06/12, resolved s/p metoprolol - Continues to remain in NSR since that time - Continue metoprolol succinate 12.5mg PO BID - Continue to monitor on telemetry - Cardiology consulted, appreciate insight and recommendations: - While CHADSVASC is 3 (and therefore, by scoring, anticoagulation is clinically indicated), this single episode of AFib occurred during extenuating circumstances (ischemia, AHRF, hypovolemia) - Given persistence of NSR, will hold from starting anticoagulation at this time CAD with Chronic Systolic CHF -- in ED, patient received fluid bolus which subsequently resulted in dyspnea - CA approximately 4 years ago --> attempted PCI, vessel ruptured, PCI aborted - TTE demonstrated moderate RV dilation w/ mild to moderate reduction of systolic function. LV sys fxn mild to moderately reduced as well. EF 40-45%. Grade I diastolic dysfunction. Mild mitral and tricuspid reguritation - Continue isosorbide mononitrate, ranolazine, metoprolol, lisinopril - Holding ASA in setting of BRBpR --> anticipate restarting prior to discharge - Cardiology consulted: -- Diurese as needed with IV Lasix if weight climbs or fluid retention. -- Goal to keep SpO2 saturations above 94%. -- Monitor I&O's, body weights. -- Continue beta suzanna, long-acting nitrate, ranolazine, and ACEI. Rectal Bleeding - While in ER patient had a BM with small amount of bright red blood in stool. - Has a history of hemorrhoids, bleed likely secondary to this. - Hgb stable on repeat checks - Holding ASA in setting of BRBpR --> anticipate restarting prior to discharge HLD: - Continue home atorvastatin HTN: - Now demonstrating normotension on repeat checks - Continue home isosorbide mononitrate, metoprolol, HCTZ, lisinopril CODE STATUS: DNR/DNI FEN/GI: Heart healthy, low-sodium diet DVT prophylaxis: Lovenox 40mg SQ daily Dispo: Med/surg for further antibiotic treatment (2) Peripheral vascular disease: (3) Sepsis with acute hypoxic respiratory failure: (4) Critical lower limb ischemia: Admission and Anticipated Discharge Date Admission Date: June 11, 2020 Supervising Physician Co-Signing Physician Notes I personally examined the patient and verified all flynn points of history and exam, discussed case, and agree with decision making with Dr Mason. Feeling about the same. Not really any worse, but not really any better. Ongoing cough with copious amounts of angeles and dark angeles sputum.. Vitals noted, in general he is awake and alert pleasant no distress. HEENT normocephalic atraumatic mucous membranes are moist. Breathing is unlabored no accessory muscle use, diminished base right compared to left overall diminished globally no rales rhonchi or wheezes good effort. Right lower extremity AKA incision appears clean dry and intact. No erythema no exudate Sepsis/critical limb ischemia status post AKA, pneumoniagiven that his pneumonia does not really seem to be getting any better, although he is also not really getting any worse, but his white count continues to remain quite highthe differential would be simply that he had a pneumonia that was fairly dense and with his COPD has fairly poor pulmonary toiletcontinue efforts to mobilize sputumbut also whether or not possibly has resistant gram-positive's such as MRSApossibly partially treated with vancomycin earlier in his hospital stay and now being "kept at bay" with a degree of antibiotic effect from cefepime. Given that he is really not getting any better we will reinitiate MRSA type coverage with vancomycin, and to continue to follow. Otherwise as above Subjective Patient seen at bedside this AM. Says he is feeling "alright". Feels his breathing has overall improved but still has a very wet cough with lots of yellow-green sputum production. I explain that with his smoking history that is not uncommon but that we do believe he warrants continuation of antibiotics currently. Patient understands and agrees. Pain currently well-controlled and no issues with his amputation. Says since intubation it has been difficult to swallow food so has been trying to drink at least 4 Boost per day. No further concerns or symptoms. Review of Systems Review of Systems: All systems reviewed & are unremarkable except as noted in Subjective Physical Exam Constitutional: WD/WN, vitals as above no acute distress Respiratory: symmetric chest movement; + abnormal respiratory effort (slightly increased), no labored breathing, no retractions and does not use accessory muscles Auscultation: + crackles (RLL) Cardiovascular: RRR, no murmur, no edema Heart Sounds: normal S1 and normal S2 Psychiatric: A+Ox3, euthymic affect Results & Data Results & Data ([facility]) Vital Signs (Past 12 Hours) Vital Signs Temp Pulse Resp BP Pulse Ox 06/19/20 22:23 37.2 C 93 H 16 129/80 91 Resident Activity Tracking Resident Involvement: Resident Care Provided Care Provided: Adult Hospital Medicine (1) Pneumonia Laterality: right Lung location: lower lobe of lung Pneumonia type: due to unspecified organism Qualified Code(s): J18.9 - Pneumonia, unspecified organism
[2020-06-20 07:19] LABS: Mean Corpuscular Hgb Conc 33.8 g/dL (32-36)
[2020-06-20 07:46] LABS: BUN Creatinine Ratio 40.5 (10-20); Calcium 8.3 mg/dl (8.5-10.1); Creatinine Clr Calc Pharmacy 100.7 ml/min; Est GFR (African American) 131.3; Est GFR (Non-African American) 113.3; Potassium 4.2 mmol/L (3.5-5.1)
[2020-06-20 08:07] LABS: Hematocrit (blood only) 35.2 % (42-52); Hemoglobin 11.9 g/dL (14.0-18.0); Mean Corpuscular Hemoglobin 30.7 pg (25-34); RDW Coefficient of Variation 14.7 % (11.5-14.5); RDW Standard Deviation 48.5 fL (36.4-46.3); Red Blood Count 3.87 M/uL (4.7-6.1); White Blood Count 26.17 K/uL (4.8-10.8)
[2020-06-20] MEDS: METHADONE HCL 5 MG TAB PO SCH ×2 (08:35→21:11)
[2020-06-20] MEDS: SENNA 8.6 MG TAB PO SCH (08:36)
[2020-06-20] MEDS: CETIRIZINE HCL 10 MG TABLET PO SCH (08:37)
[2020-06-20] MEDS: ENOXAPARIN INJ 40 MG/0.4 ML SYR SQ SCH (08:37)
[2020-06-20 09:26] LABS: Platelet Count 121 K/uL (130-400)
[2020-06-20 09:27] LABS: Basophils # (auto) 0.03 K/uL (0-0.2); Basophils % (auto) 0.1 %; Eosinophils # (auto) 0.16 K/uL (0-0.5); Eosinophils % (auto) 0.6 %; Immature Granulocytes # (auto) 0.33 K/uL (0.00-0.02); Immature Granulocytes % (auto) 1.3 %; Lymphocytes # (auto) 3.08 K/uL (1.2-3.4); Lymphocytes % (auto) 11.8 %; Neutrophils # (auto) 21.27 K/uL (1.4-6.5); Neutrophils % (auto) 81.2 %; Platelet Estimate Decreased (Normal)
--- NOTE | 2020-06-20 10:20 | Surgery Progress Note ---
Date of Service June 20, 2020 Assessment & Plan (1) Amputation above knee: Stump healing well All tissue appears viable. Will see him as outpatient for staple removal Call if we are needed during the rest of his hosptial stay. Admission and Anticipated Discharge Date Admission Date: June 11, 2020 Subjective Patient complaining of incisional pain. Physical Exam Skin: + incision (Dry and clean); no erythema Results & Data ([facility]) Vital Signs (Past 12 Hours) Vital Signs Temp Pulse Resp BP Pulse Ox 06/20/20 07:37 36.9 C 98 H 16 119/78 87 L 06/19/20 22:23 37.2 C 93 H 16 129/80 91
[2020-06-20] MEDS: ONDANSETRON INJ 2 MG/ML 2 ML VIAL IV PRN (10:52)
[2020-06-20] MEDS ORDERED: VANCOMYCIN CONSULT ACTIVE PRN (16:20)
[2020-06-20] MEDS ORDERED: VANCOMYCIN HCL 1,000 MG in SODIUM CHLORIDE 0.9% 250 ML IV ONE (16:45)
[2020-06-20] MEDS: VANCOMYCIN HCL 1,000 MG in SODIUM CHLORIDE 0.9% 250 ML IV SCH (17:15)
--- NOTE | 2020-06-20 18:52 | Billing Data ---
Date of Service June 20, 2020 Coding Level of Care Code 65566 Subseq Hosp Care Lvl 3
[2020-06-20] MEDS: GABAPENTIN 100 MG CAP PO SCH (21:13)
[2020-06-21] MEDS: CEFEPIME 2,000 MG in SYRINGE 0 ML IV SCH ×3 (01:20→16:31)
[2020-06-21] MEDS: VANCOMYCIN HCL 1,000 MG in SODIUM CHLORIDE 0.9% 250 ML IV SCH ×2 (05:39→16:31)
[2020-06-21 06:32] LABS: Mean Corpuscular Hgb Conc 32.7 g/dL (32-36)
[2020-06-21 07:06] LABS: BUN Creatinine Ratio 41.2 (10-20); Calcium 7.8 mg/dl (8.5-10.1); Creatinine Clr Calc Pharmacy 114.8 ml/min; Est GFR (Non-African American) 119.1; Potassium 3.9 mmol/L (3.5-5.1)
[2020-06-21 07:20] LABS: Basophils # (auto) 0.03 K/uL (0-0.2); Basophils % (auto) 0.1 %; Eosinophils # (auto) 0.11 K/uL (0-0.5); Eosinophils % (auto) 0.5 %; Giant Platelets 2+; Hematocrit (blood only) 31.4 % (42-52); Hemoglobin 10.4 g/dL (14.0-18.0); Immature Granulocytes # (auto) 0.34 K/uL (0.00-0.02); Immature Granulocytes % (auto) 1.5 %; Lymphocytes # (auto) 2.46 K/uL (1.2-3.4); Mean Corpuscular Hemoglobin 29.9 pg (25-34); Mean Corpuscular Volume 90.2 fL (80-100); Monocytes # (auto) 1.17 K/uL (0.11-0.59); Monocytes % (auto) 5.2 %; Neutrophils % (auto) 81.7 %; Platelet Count 102 K/uL (130-400); Platelet Estimate Decreased (Normal); Poikilocytosis Present; RDW Coefficient of Variation 14.5 % (11.5-14.5); RDW Standard Deviation 47.7 fL (36.4-46.3); Red Blood Count 3.48 M/uL (4.7-6.1); Toxic Vacuolation 1+; White Blood Count 22.41 K/uL (4.8-10.8)
--- NOTE | 2020-06-21 07:37 | Hospitalist Progress Note ---
Date of Service June 21, 2020 Assessment & Plan (1) Pneumonia: Sukhjinder is a 75-year-old male with past medical history significant for CAD, HTN, HLD, extensive smoking history and COPD, hemorrhoids admitted for severe sepsis with acute hypoxic respiratory failure, with initial complaint of RLE pain with findings consistent with critical limb ischemia. Now s/p right AKA. Severe Sepsis Secondary to PNA (Aspiration vs. CAP) - Leukocytosis with left shift, procalcitonin still appreciable -- improvement compared to earlier in course - CXR (), CTA significant for RLL consolidation, emphysema - Ordered speech therapy consult for swallowing evaluation: no issues swallowing - Respiratory status not worsening but no clear improvement either--patient with cough productive of yellow sputum - Leukocytosis also increasing again today after trending down - Continue IV cefepime and vancomycin - Of note, patient does also have underlying right side heart dysfunction - see echo results below Acute Hypoxemic Respiratory Failure - secondary to PNA, fluid overload (reduced EF), COPD with significant tobacco abuse history. Without much improvement 06/17-. 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 Required brief ICU stay. Please see solid plasterer notes for further details. - Palliative consulted, appreciate insight into care: - Controlled on low dose methadone with gabapentin at HS. No sedation noted Continue current dosing and monitor. - DVT ppx with Lovenox 40mg SQ daily COPD/Emphysema with Cor Pulmonale - Significant past smoking history: >55 pack-years (1+ ppd x >55 years) - Continue home montelukast, prednisone 5 mg p.o. twice daily, Anoro Ellipta inhaler. - Levalbuterol and nebulizer treatment PRN - Methylprednisolone IV x 1 as above - Pulmonology assisted in care - will require pulmonology appointment as outpatient AND PFTs - Echocardiogram demonstrating dilated RV with mild to moderate reduced systolic function Episode of Atrial Fibrillation - Noted to be in atrial fibrillation with RSR on 06/12, resolved s/p metoprolol - Continues to remain in NSR since that time - Continue metoprolol succinate 12.5mg PO BID - Continue to monitor on telemetry - Cardiology consulted, appreciate insight and recommendations: - While CHADSVASC is 3 (and therefore, by scoring, anticoagulation is clinically indicated), this single episode of AFib occurred during extenuating circumstances (ischemia, AHRF, hypovolemia) - Given persistence of NSR, will hold from starting anticoagulation at this time CAD with Chronic Systolic CHF -- in ED, patient received fluid bolus which subsequently resulted in dyspnea - [place] approximately 4 years ago --> attempted PCI, vessel ruptured, PCI aborted - TTE demonstrated moderate RV dilation w/ mild to moderate reduction of systolic function. LV sys fxn mild to moderately reduced as well. EF 40-45%. Grade I diastolic dysfunction. Mild mitral and tricuspid reguritation - Continue isosorbide mononitrate, ranolazine, metoprolol, lisinopril - Holding ASA in setting of BRBpR --> anticipate restarting prior to discharge - Cardiology consulted: -- Diurese as needed with IV Lasix if weight climbs or fluid retention. -- Goal to keep SpO2 saturations above 94%. -- Monitor I&O's, body weights. -- Continue beta suzanna, long-acting nitrate, ranolazine, and ACEI. Rectal Bleeding - While in ER patient had a BM with small amount of bright red blood in stool. - Has a history of hemorrhoids, bleed likely secondary to this. - Hgb stable on repeat checks - Holding ASA in setting of BRBpR --> anticipate restarting prior to discharge HLD: - Continue home atorvastatin HTN: - Now demonstrating normotension on repeat checks - Continue home isosorbide mononitrate, metoprolol, HCTZ, lisinopril CODE STATUS: DNR/DNI FEN/GI: Heart healthy, low-sodium diet DVT prophylaxis: Lovenox 40mg SQ daily Dispo: Med/surg for further antibiotic treatment (2) Peripheral vascular disease: (3) Sepsis with acute hypoxic respiratory failure: (4) Critical lower limb ischemia: Admission and Anticipated Discharge Date Admission Date: June 11, 2020 Supervising Physician Co-Signing Physician Notes I personally examined the patient and verified all flynn points of history and exam, discussed case, and agree with decision making with Dr Mason. Still bringing up sputum, but it seems to be a little bit less and not quite as thick. He does note that he feels like he cannot get the sputum up quite as much as before. Using the flutter valve does provoke a good cough.. Vitals noted, in general he is awake and alert pleasant no distress. HEENT normo cephalic atraumatic mucous membranes are moist. Breathing is unlabored no accessory muscle use, diminished base right compared to left overall diminished globally no rales rhonchi or wheezes good effortslightly improved air entry compared to yesterday. Sepsis/critical limb ischemia status post AKA, pneumoniaseems to be slowly improving. Addition of vancomycin to cover for possible MRSA and his pneumonia seems to have helpedclinically he looks a little brighter, his white count is improving, I do suspect he also suffers from difficulty with pulmonary toilet due to the extensive amount of mucus in his chest and his COPD making it difficult to get it outto that end we will continue nebs and flutter valve. Otherwise overall continue current care and follow closely. He appears to be healing well from his AKA. Otherwise as above Subjective Patient seen sitting at wheelchair next to his bed today. He is fairly short of breath when I arrive but had just been moved and exerted himself significantly. During the time I spend in his room he eventually returns to normal. He expresses that he's still coughing with sputum but says he is breathing better. Feels his pain continues to be well-controlled. No cardiac complaints, no n/v, diarrhea, constipation. Review of Systems Review of Systems: All systems reviewed & are unremarkable except as noted in Subjective Physical Exam Constitutional: WD/WN, vitals as above no acute distress Respiratory: normal respiratory effort, lungs clear to auscultation no labored breathing, no retractions and does not use accessory muscles Auscultation: + diminished lung sounds (right lung base) Cardiovascular: RRR, no murmur, no edema Psychiatric: A+Ox3, euthymic affect Results & Data Results & Data ([facility]) Vital Signs (Past 12 Hours) Vital Signs Temp Pulse Resp BP Pulse Ox 06/20/20 23:14 37.2 C 105 H 18 124/77 90 Resident Activity Tracking Resident Involvement: Resident Care Provided Care Provided: Adult Hospital Medicine (1) Pneumonia Laterality: right Lung location: lower lobe of lung Pneumonia type: due to unspecified organism Qualified Code(s): J18.9 - Pneumonia, unspecified organism
[2020-06-21] MEDS: METHADONE HCL 5 MG TAB PO SCH ×2 (07:50→20:05)
[2020-06-21] MEDS: SENNA 8.6 MG TAB PO SCH (07:51)
[2020-06-21] MEDS: ENOXAPARIN INJ 40 MG/0.4 ML SYR SQ SCH (07:51)
[2020-06-21] MEDS: CETIRIZINE HCL 10 MG TABLET PO SCH (07:51)
--- NOTE | 2020-06-21 08:46 | Pharmacy Report ---
Pharmacy Abx Dose Short Note - Date of Service June 21, 2020 - Assessment & Plan Assessment 75 year old M admitted on 06/11/20 with acute respiratory failure, right lower lobe pneumonia * patient incarcerated, active smoker, COPD and takes chronic prednisone 5 mg BID * he has been on cefepime and was previously on vancomycin (06/11-06/14) and metronidazole (06/11-06/13) * vancomycin was restarted on 06/20 due to no clear improvement in respiratory status and increasing leukocytosis Plan Vancomycin * 1000 mg (~21 mg/kg) IV q12h * Goal trough level: ~15 mcg/mL * Trough level ordered for: 06/22/20 @ 0430 Pharmacy will continue to follow and will adjust dose/frequency as necessary. Thank you.
--- NOTE | 2020-06-21 13:08 | Billing Data ---
Date of Service June 21, 2020 Coding Level of Care Code 06750 Subseq Hosp Care Lvl 3
[2020-06-21] MEDS: MoRPHine SULFATE 2 MG/ML CARP IV PRN (16:31)
[2020-06-21] MEDS: GABAPENTIN 100 MG CAP PO SCH (20:05)
[2020-06-21] MEDS: ONDANSETRON INJ 2 MG/ML 2 ML VIAL IV PRN (20:05)
[2020-06-22] MEDS: CEFEPIME 2,000 MG in SYRINGE 0 ML IV SCH ×3 (00:35→17:49)
[2020-06-22] MEDS: LEVALBUTEROL HCL 0.63 MG/3 ML NEB NEB PRN ×2 (01:46→20:26)
[2020-06-22] MEDS ORDERED: VANCOMYCIN TROUGH ONE (04:30)
[2020-06-22 05:32] LABS: Mean Corpuscular Hgb Conc 32.8 g/dL (32-36)
[2020-06-22] MEDS: VANCOMYCIN HCL 1,000 MG in SODIUM CHLORIDE 0.9% 250 ML IV SCH (05:34)
[2020-06-22 05:36] LABS: Hematocrit (blood only) 31.1 % (42-52); Hemoglobin 10.2 g/dL (14.0-18.0); Mean Corpuscular Hemoglobin 30.4 pg (25-34); Mean Corpuscular Volume 92.8 fL (80-100); RDW Coefficient of Variation 14.5 % (11.5-14.5); RDW Standard Deviation 49.2 fL (36.4-46.3); Red Blood Count 3.35 M/uL (4.7-6.1)
[2020-06-22 05:55] LABS: BUN Creatinine Ratio 34.6 (10-20); Calcium 7.7 mg/dl (8.5-10.1); Creatinine Clr Calc Pharmacy 124.3 ml/min; Est GFR (African American) 142.6; Potassium 3.9 mmol/L (3.5-5.1)
[2020-06-22 06:13] LABS: Platelet Count 98 K/uL (130-400)
[2020-06-22 06:14] LABS: Basophils # (auto) 0.03 K/uL (0-0.2); Basophils % (auto) 0.2 %; Eosinophils # (auto) 0.08 K/uL (0-0.5); Eosinophils % (auto) 0.5 %; Immature Granulocytes # (auto) 0.22 K/uL (0.00-0.02); Immature Granulocytes % (auto) 1.3 %; Lymphocytes # (auto) 1.87 K/uL (1.2-3.4); Monocytes # (auto) 1.34 K/uL (0.11-0.59); Monocytes % (auto) 7.9 %; Neutrophils % (auto) 79.1 %; Platelet Estimate Decreased (Normal)
--- NOTE | 2020-06-22 08:07 | Hospitalist Progress Note ---
Date of Service June 22, 2020 Assessment & Plan (1) Pneumonia: Sukhjinder is a 75-year-old male with past medical history significant for CAD, HTN, HLD, extensive smoking history and COPD, hemorrhoids admitted for severe sepsis with acute hypoxic respiratory failure, with initial complaint of RLE pain with findings consistent with critical limb ischemia. Now s/p right AKA. Severe Sepsis Secondary to PNA (Aspiration vs. CAP) - Leukocytosis with left shift, procalcitonin still appreciable -- improvement compared to earlier in course - CXR (06/11, ), CTA significant for RLL consolidation, emphysema - Ordered speech therapy consult for swallowing evaluation: no issues swallowing - Leukocytosis trending down past two days - Continue IV cefepime and vancomycin - Of note, patient does also have underlying right side heart dysfunction - see echo results below Acute Hypoxemic Respiratory Failure - secondary to PNA, fluid overload (reduced EF), COPD with significant tobacco abuse history. Without much improvement 06/05 3-14. 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 Required brief ICU stay. Please see behavioral modification assistant notes for further details. - Palliative consulted, appreciate insight into care: - Controlled on low dose methadone with gabapentin at HS. No sedation noted Continue current dosing and monitor. - Palliative signed off today as patient doing much better--will re-consult if his status changes - DVT ppx with Lovenox 40mg SQ daily COPD/Emphysema with Cor Pulmonale - Significant past smoking history: >55 pack-years (1+ ppd x >55 years) - Continue home montelukast, prednisone 5 mg p.o. twice daily, Anoro Ellipta inhaler. - Levalbuterol and nebulizer treatment PRN - Methylprednisolone IV x 1 as above - Pulmonology assisted in care - will require pulmonology appointment as outpatient AND PFTs - Echocardiogram demonstrating dilated RV with mild to moderate reduced systolic function Episode of Atrial Fibrillation - Noted to be in atrial fibrillation with RSR on 06/12, resolved s/p metoprolol - Continues to remain in NSR since that time - Continue metoprolol succinate 12.5mg PO BID - Continue to monitor on telemetry - Cardiology consulted, appreciate insight and recommendations: - While CHADSVASC is 3 (and therefore, by scoring, anticoagulation is clinically indicated), this single episode of AFib occurred during extenuating circumstances (ischemia, AHRF, hypovolemia) - Given persistence of NSR, will hold from starting anticoagulation at this time CAD with Chronic Systolic CHF -- in ED, patient received fluid bolus which subsequently resulted in dyspnea - [place] approximately 4 years ago --> attempted PCI, vessel ruptured, PCI aborted - TTE demonstrated moderate RV dilation w/ mild to moderate reduction of systolic function. LV sys fxn mild to moderately reduced as well. EF 40-45%. G rade I diastolic dysfunction. Mild mitral and tricuspid reguritation - Continue isosorbide mononitrate, ranolazine, metoprolol, lisinopril - Holding ASA in setting of BRBpR --> anticipate restarting prior to discharge - Cardiology consulted: -- Diurese as needed with IV Lasix if weight climbs or fluid retention. -- Goal to keep SpO2 saturations above 94%. -- Monitor I&O's, body weights. -- Continue beta suzanna, long-acting nitrate, ranolazine, and ACEI. Rectal Bleeding - While in ER patient had a BM with small amount of bright red blood in stool. - Has a history of hemorrhoids, bleed likely secondary to this. - Hgb stable on repeat checks - Holding ASA in setting of BRBpR --> anticipate restarting prior to discharge HLD: - Continue home atorvastatin HTN: - Now demonstrating normotension on repeat checks - Continue home isosorbide mononitrate, metoprolol, HCTZ, lisinopril CODE STATUS: DNR/DNI FEN/GI: Heart healthy, low-sodium diet DVT prophylaxis: Lovenox 40mg SQ daily Dispo: Med/surg for further antibiotic treatment (2) Peripheral vascular disease: (3) Sepsis with acute hypoxic respiratory failure: (4) Critical lower limb ischemia: Admission and Anticipated Discharge Date Admission Date: June 11, 2020 Supervising Physician Co-Signing Physician Notes I personally examined the patient and verified all flynn points of history and exam, discussed case, and agree with decision making with Dr Mason. Feeling a little better, breathing a little easier, bringing up less sputum, overall feels improved.. Vitals noted, in general he is awake and alert pleasant no distress. HEENT normocephalic atraumatic mucous membranes are moist. Breathing is unlabored no accessory muscle use, better air entry without any real focal findings today. No rales rhonchi or wheezes good effort. Sepsis/critical limb ischemia status post AKA, pneumoniaseems to be slowly improving. Addition of vancomycin to cover for possible MRSA and his pneumonia has helpedclinically he is improving, his white count is improving nicely as well, I do suspect he also suffers from difficulty with pulmonary toilet due to the extensive amount of mucus in his chest and his COPD making it difficult to get it outto that end we will continue nebs and maryan krause appeared to be helping. Otherwise overall continue current care and follow closely. He appears to be healing well from his AKA. Otherwise as above Subjective Patient feeling well this morning. His main complaint is that it hurts a lot when they move him from hid bed to the wheelchair. I told him we'd give him some pain medication beforehand today to try and ameliorate that a bit. He feels he is breathing much better, though, and also says that it felt easier to prop himself forward when I listened to his lungs today. Also reported feeling that he was able to eat a bit more last night and his swallowing felt better. Review of Systems Review of Systems: All systems reviewed & are unremarkable except as noted in Subjective Physical Exam Physical Exam: Constitutional: WD/WN, vitals as above, no acute distress Respiratory: normal respiratory effort, no labored breathing, no retractions and does not use accessory muscles, slightly diminished right lung base sounds Cardiovascular: RRR, no murmur, no edema, S1 & S2 normal Psychiatric: A+Ox3, euthymic affect Results & Data Results & Data ([place]) Vital Signs (Past 12 Hours) Vital Signs Temp Pulse Resp BP Pulse Ox 06/22/20 07:12 37 C 107 H 16 117/75 94 06/22/20 01:53 85 18 96 06/21/20 22:57 37.7 C H 98 H 14 99/65 L 93 Resident Activity Tracking Resident Involvement: Resident Care Provided Care Provided: Adult Hospital Medicine (1) Pneumonia Laterality: right Lung location: lower lobe of lung Pneumonia type: due to unspecified organism Qualified Code(s): J18.9 - Pneumonia, unspecified organism
[2020-06-22] MEDS: METHADONE HCL 5 MG TAB PO SCH ×2 (09:13→20:30)
[2020-06-22] MEDS: CETIRIZINE HCL 10 MG TABLET PO SCH (09:14)
[2020-06-22] MEDS: ENOXAPARIN INJ 40 MG/0.4 ML SYR SQ SCH (09:14)
[2020-06-22] MEDS: SENNA 8.6 MG TAB PO SCH (09:14)
--- NOTE | 2020-06-22 09:32 | Palliative Care Progress Note ---
Date of Service June 22, 2020 Assessment & Plan (1) Neuropathic pain: Controlled on low dose methadone with gabapentin at HS. No sedation noted Continue current dosing and monitor. Pt utilized THREE dose of IV Morphine over past 24 hours. Will continue these at discharge. (2) Palliative care encounter: He is DNR. Pt went asystole during surgical procedure. ROSC achieved. Plan is when medically stable, will be transferred [facility] Patient has stabilized and plan is for [facility] to [facility] to [facility] when medically stable, which is anticipated over the next few days. His WBC has decreased from 26--> 16.6 and no acute needs have arrised. Palliative care will sign off of this patient as discussed with hospitalist team. Please contact Palliative care should any acute needs arise. Admission and Anticipated Discharge Date Admission Date: June 11, 2020 Subjective Patient was in his hospital bed when I saw him today. He continues to have increased coughing with some sputum, but overall his O2 needs have decreased. SEe A/P for further details. Review of Systems Review of Systems: [place] Symptom Assessment Scale Pain 0/3 Dyspnea 1/3 Nausea 0/3 Anxiety 0/3 Drowsiness 1/3 Palliative Performance Score 30% Physical Exam Constitutional: + thin, + frail appearing and cooperative; not ill appearing Respiratory: normal respiratory effort, lungs clear to auscultation Auscultation: + diminished lung sounds Cardiovascular: RRR, no murmur, no edema Vessels: femoral pulses present (right femoral) Gastrointestinal (Abdomen): normal bowel sounds, soft, nontender, no hepatosplenomegaly Musculoskeletal: Right AKA Skin: + pallor Psychiatric: A+Ox3, euthymic affect Results & Data ([facility]) Vital Signs (Past 12 Hours) Vital Signs Temp Pulse Resp BP Pulse Ox 06/22/20 07:12 37 C 107 H 16 117/75 94 06/22/20 01:53 85 18 96 06/21/20 22:57 37.7 C H 98 H 14 99/65 L 93 PG Care Time/CCT Total # of Minutes Spent Total Time Spent with Patient: Total time spent is greater than 50% in coordination of care (as documented) at patient's floor/unit and/or counseling patient: 15 Coding Level of Care Code 10992 Subseq Hosp Care Lvl 1 Diagnoses Neuropathic pain M79.2 Palliative care encounter Z51.5 Time Spent (min) 15
[2020-06-22] MEDS: MoRPHine SULFATE 2 MG/ML CARP IV PRN ×2 (10:47→20:31)
--- NOTE | 2020-06-22 11:22 | Pharmacy Report ---
Pharmacy Abx Dose Short Note - Date of Service June 22, 2020 - Assessment & Plan Assessment 06/21: 75 year old M admitted on 06/11/20 with acute respiratory failure, right lower lobe pneumonia * patient incarcerated, active smoker, COPD and takes chronic prednisone 5 mg BID * he has been on cefepime and was previously on vancomycin (06/11-06/14) and metronidazole (06/11-06/13) * vancomycin was restarted on 06/20 due to no clear improvement in respiratory status and increasing leukocytosis 06/22: * WBC trending downward since resuming vancomycin, patient reports "breathing better" today Plan Vancomycin * Trough level of 9.5 mcg/mL is subtherapeutic * Change to vanco 750 mg (15.6 mg/kg) IV every 8 hours - regimen estimated to produce AUC = 471 and trough = 13.3 mcg/mL * Repeat trough level ordered for 06/23 @ 1130 Pharmacy will continue to follow and will adjust dose/frequency as necessary. Thank you.
[2020-06-22] MEDS: VANCOMYCIN HCL 750 MG in SODIUM CHLORIDE 0.9% 250 ML IV SCH ×2 (13:51→20:34)
--- NOTE | 2020-06-22 16:15 | Billing Data ---
Date of Service June 22, 2020 Coding Level of Care Code 97654 Subseq Hosp Care Lvl 3
[2020-06-22] MEDS: GABAPENTIN 100 MG CAP PO SCH (20:35)
[2020-06-22] MEDS: HEPARIN 100 UNIT/ML 5ML FLUSH FLUSH PRN (22:22)
[2020-06-22] MEDS: guaiFENesin 600 MG TABCR PO PRN (22:22)
[2020-06-23] MEDS: CEFEPIME 2,000 MG in SYRINGE 0 ML IV SCH ×3 (00:59→17:33)
[2020-06-23] MEDS: VANCOMYCIN HCL 750 MG in SODIUM CHLORIDE 0.9% 250 ML IV SCH ×3 (04:10→19:20)
[2020-06-23] MEDS: MoRPHine SULFATE 2 MG/ML CARP IV PRN ×4 (04:10→17:32)
[2020-06-23] MEDS: HEPARIN 100 UNIT/ML 5ML FLUSH FLUSH PRN (04:11)
[2020-06-23] MEDS: LEVALBUTEROL HCL 0.63 MG/3 ML NEB NEB PRN (05:33)
[2020-06-23 06:11] LABS: Mean Corpuscular Hgb Conc 33.2 g/dL (32-36)
[2020-06-23 06:31] LABS: Hematocrit (blood only) 28.3 % (42-52); Hemoglobin 9.4 g/dL (14.0-18.0); Mean Corpuscular Hemoglobin 30.5 pg (25-34); Mean Corpuscular Volume 91.9 fL (80-100); RDW Coefficient of Variation 14.5 % (11.5-14.5); RDW Standard Deviation 48.6 fL (36.4-46.3); Red Blood Count 3.08 M/uL (4.7-6.1); White Blood Count 12.08 K/uL (4.8-10.8)
[2020-06-23 06:45] LABS: BUN Creatinine Ratio 34.8 (10-20); Calcium 7.2 mg/dl (8.5-10.1); Creatinine Clr Calc Pharmacy 131.6 ml/min
[2020-06-23 06:47] LABS: Basophils # (auto) 0.02 K/uL (0-0.2); Basophils % (auto) 0.2 %; Eosinophils # (auto) 0.11 K/uL (0-0.5); Eosinophils % (auto) 0.9 %; Immature Granulocytes # (auto) 0.17 K/uL (0.00-0.02); Immature Granulocytes % (auto) 1.3 %; Lymphocytes # (auto) 1.01 K/uL (1.2-3.4); Monocytes # (auto) 2.11 K/uL (0.11-0.59); Monocytes % (auto) 16.7 %; Neutrophils % (auto) 72.9 %
[2020-06-23] MEDS: CETIRIZINE HCL 10 MG TABLET PO SCH (07:44)
[2020-06-23] MEDS: ENOXAPARIN INJ 40 MG/0.4 ML SYR SQ SCH (07:44)
[2020-06-23] MEDS: SENNA 8.6 MG TAB PO SCH (07:45)
[2020-06-23] MEDS: METHADONE HCL 5 MG TAB PO SCH ×2 (07:53→20:44)
--- NOTE | 2020-06-23 08:38 | Hospitalist Progress Note ---
Date of Service June 23, 2020 Assessment & Plan (1) Pneumonia: Sukhjinder is a 75-year-old male with past medical history significant for CAD, HTN, HLD, extensive smoking history and COPD, hemorrhoids admitted for severe sepsis with acute hypoxic respiratory failure, with initial complaint of RLE pain with findings consistent with critical limb ischemia. Now s/p right AKA Severe Sepsis Secondary to PNA (Aspiration vs. CAP) - Leukocytosis with left shift, procalcitonin still appreciable -- improvement compared to earlier in course - CXR (), CTA significant for RLL consolidation, emphysema - Speech therapy consult for swallowing evaluation: no issues swallowing - Leukocytosis trending down past two days - Continue IV cefepime and vancomycin - Of note, patient does also have underlying right side heart dysfunction - see echo results below Acute Hypoxemic Respiratory Failure - secondary to PNA, fluid overload (reduced EF), COPD with significant tobacco abuse history. Without much improvement 06/17-. 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 Required brief ICU stay. Please see health analyst notes for further details. - Palliative consulted, appreciate insight into care: - Controlled on low dose methadone with gabapentin at HS. No sedation noted Continue current dosing and monitor. - Palliative signed off today as patient doing much better--will re-consult if his status changes - DVT ppx with Lovenox 40mg SQ daily COPD/Emphysema with Cor Pulmonale - Significant past smoking history: >55 pack-years (1+ ppd x >55 years) - Continue home montelukast, prednisone 5 mg p.o. twice daily, Anoro Ellipta inhaler. - Levalbuterol and nebulizer treatment PRN - Methylprednisolone IV x 1 as above - Pulmonology assisted in care - will require pulmonology appointment as outpatient AND PFTs - Echocardiogram demonstrating dilated RV with mild to moderate reduced systolic function Episode of Atrial Fibrillation - Noted to be in atrial fibrillation with RSR on 06/12, resolved s/p metoprolol - Continues to remain in NSR since that time - Continue metoprolol succinate 12.5mg PO BID - Continue to monitor on telemetry - Cardiology consulted, appreciate insight and recommendations: - While CHADSVASC is 3 (and therefore, by scoring, anticoagulation is cl inically indicated), this single episode of AFib occurred during extenuating circumstances (ischemia, AHRF, hypovolemia) - Given persistence of NSR, will hold from starting anticoagulation at this time Episode of Chest Pain - resolved, likely soreness from chest compressions/persistent coughing - CP overnight on 06/22 - EKG with ST depressions in leads V1 through V3 - Troponin was repeated and was negative - Will monitor clinically for now CAD with Chronic Systolic CHF -- in ED, patient received fluid bolus which sub sequently resulted in dyspnea - [place] approximately 4 years ago --> attempted PCI, vessel ruptured, PCI aborted - TTE demonstrated moderate RV dilation w/ mild to moderate reduction of systol ic function. LV sys fxn mild to moderately reduced as well. EF 40-45%. Grade I diastolic dysfunction. Mild mitral and tricuspid regurgitation - Continue isosorbide mononitrate, ranolazine, metoprolol, lisinopril - Holding ASA in setting of BRBpR --> anticipate restarting prior to discharge - Cardiology consulted: -- Diurese as needed with IV Lasix if weight climbs or fluid retention. -- Goal to keep SpO2 saturations above 94%. -- Monitor I&O's, body weights. -- Continue beta suzanna, long-acting nitrate, ranolazine, and ACEI. Rectal Bleeding - While in ER patient had a BM with small amount of bright red blood in stool. - Has a history of hemorrhoids, bleed likely secondary to this. - Hgb stable on repeat checks - Holding ASA in setting of BRBpR --> anticipate restarting prior to discharge HLD: - Continue home atorvastatin HTN: - Now demonstrating normotension on repeat checks - Continue home isosorbide mononitrate, metoprolol, HCTZ, lisinopril CODE STATUS: DNR/DNI FEN/GI: Heart healthy, low-sodium diet DVT prophylaxis: Lovenox 40mg SQ daily Dispo: Med/surg for further antibiotic treatment (2) Peripheral vascular disease: (3) Sepsis with acute hypoxic respiratory failure: (4) Critical lower limb ischemia: Admission and Anticipated Discharge Date Admission Date: June 11, 2020 Supervising Physician Co-Signing Physician Notes I personally examined the patient and verified all flynn points of history and exam, discussed case, and agree with decision making with Dr Mason. had some pain, got morphine - helped. but notes that he's feeling a little spacey. otherwise seems to have no new complaints. Vitals noted, in general he is awake and alert pleasant no distress. HEENT normocephalic atraumatic mucous membranes are moist. Breathing is unlabored no accessory muscle use, better air entry no focal findings today. No rales rhonchi or wheezes good effort. Sepsis/critical limb ischemia status post AKA, pneumoniaseems to be slowly impr oving. continue vanco and cefepime for now. continue pain control. otherwise as above. Subjective Patient seen sitting at wheelchair, just finished breakfast. Was able to swallow well today, had cereal with milk. Says he is breathing better, and not having as much pain. Did report some chest pain overnight so night resident got EKG and troponin. EKG showed some abnormalities but troponin was not elevated. Denies CP this morning. No n/v, abd pain, diarrhea, constipation. Review of Systems Review of Systems: All systems reviewed & are unremarkable except as noted in Subjective Physical Exam Physical Exam: Constitutional: WD/WN, vitals as above, no acute distress Respiratory: CTAB, no wheezes or rhonchi, normal respiratory effort, no labored breathing Cardiovascular: RRR, no murmur, no edema, S1 & S2 normal Psychiatric: A+Ox3, euthymic affect Results & Data Results & Data ([facility]) Vital Signs (Past 12 Hours) Vital Signs Temp Pulse Resp BP Pulse Ox 06/23/20 07:13 36.7 C 87 20 111/71 88 L 06/23/20 05:33 89 20 89 L 06/23/20 05:30 92 06/22/20 22:31 36.9 C 96 H 20 126/73 94 Resident Activity Tracking Resident Involvement: Resident Care Provided Care Provided: Adult Hospital Medicine (1) Pneumonia Laterality: right Lung location: lower lobe of lung Pneumonia type: due to unspecified organism Qualified Code(s): J18.9 - Pneumonia, unspecified organism
[2020-06-23] MEDS ORDERED: VANCOMYCIN TROUGH ONE (11:30)
--- NOTE | 2020-06-23 14:15 | Billing Data ---
Date of Service June 23, 2020 Coding Level of Care Code 02949 Subseq Hosp Care Lvl 3
--- NOTE | 2020-06-23 14:48 | Pharmacy Report ---
Pharmacy Abx Dose Short Note - Date of Service June 23, 2020 - Assessment & Plan Assessment 06/21: 75 year old M admitted on 06/11/20 with acute respiratory failure, right lower lobe pneumonia * patient incarcerated, active smoker, COPD and takes chronic prednisone 5 mg BID * he has been on cefepime and was previously on vancomycin (06/11-06/14) and metronidazole (06/11-06/13) * vancomycin was restarted on 06/20 due to no clear improvement in respiratory status and increasing leukocytosis 06/22: * WBC trending downward since resuming vancomycin, patient reports "breathing better" today 06/23: * Trough in goal range after dose increase yesterday. Will order repeat trough in 2 days to ensure level does not become supratherapeutic Plan Vancomycin * Continue vanco 750 mg (15.6 mg/kg) IV every 8 hours - regimen estimated to produce AUC = 471 and trough = 13.3 mcg/mL * Repeat trough level ordered for 06/25 @ 0330 Pharmacy will continue to follow and will adjust dose/frequency as necessary. Thank you.
[2020-06-23] MEDS: GABAPENTIN 100 MG CAP PO SCH (20:44)
[2020-06-24] MEDS: CEFEPIME 2,000 MG in SYRINGE 0 ML IV SCH ×3 (00:04→17:10)
[2020-06-24] MEDS: MoRPHine SULFATE 4 MG/ML 1 ML CARP\\VIAL IV PRN ×3 (00:04→19:52)
[2020-06-24] MEDS: VANCOMYCIN HCL 750 MG in SODIUM CHLORIDE 0.9% 250 ML IV SCH ×3 (03:36→20:59)
--- NOTE | 2020-06-24 05:08 | Electrocardiogram Report ---
Test Reason : Blood Pressure : / mmHG Vent. Rate : 100 BPM Atrial Rate : 100 BPM P-R Int : 150 ms QRS Dur : 096 ms QT Int : 360 ms P-R-T Axes : 061 087 065 degrees QTc Int : 464 ms Normal sinus rhythm with frequent Premature atrial complexes Low voltage QRS Low voltage QRS Abnormal ECG When compared with ECG of 12-JUN-2020 12:42, Sinus rhythm has replaced Atrial fibrillation T wave inversion now evident in Anterior leads Confirmed by Dakotah Newberry ([id number]) on 06/24/2020 5:07:46 AM Referred By: Tatianna ALVA Confirmed By:Dakotah Newberry
[2020-06-24] MEDS: MoRPHine SULFATE 2 MG/ML CARP IV PRN (05:40)
[2020-06-24] MEDS: LEVALBUTEROL HCL 0.63 MG/3 ML NEB NEB PRN (05:43)
[2020-06-24 06:25] LABS: Mean Corpuscular Hgb Conc 32.9 g/dL (32-36)
[2020-06-24 06:38] LABS: Hematocrit (blood only) 29.5 % (42-52); Hemoglobin 9.7 g/dL (14.0-18.0); Mean Corpuscular Hemoglobin 30.2 pg (25-34); Mean Corpuscular Volume 91.9 fL (80-100); RDW Coefficient of Variation 14.5 % (11.5-14.5); RDW Standard Deviation 48.9 fL (36.4-46.3); Red Blood Count 3.21 M/uL (4.7-6.1); White Blood Count 10.17 K/uL (4.8-10.8)
[2020-06-24 06:47] LABS: Platelet Count 64 K/uL (130-400)
[2020-06-24 06:48] LABS: Basophils # (auto) 0.05 K/uL (0-0.2); Basophils % (auto) 0.5 %; Eosinophils # (auto) 0.12 K/uL (0-0.5); Eosinophils % (auto) 1.2 %; Immature Granulocytes # (auto) 0.14 K/uL (0.00-0.02); Immature Granulocytes % (auto) 1.4 %; Lymphocytes # (auto) 2.01 K/uL (1.2-3.4); Lymphocytes % (auto) 19.8 %; Monocytes % (auto) 10.8 %; Neutrophils # (auto) 6.75 K/uL (1.4-6.5); Neutrophils % (auto) 66.3 %; Platelet Estimate Decreased (Normal)
[2020-06-24 06:59] LABS: Calcium 7.4 mg/dl (8.5-10.1); Creatinine Clr Calc Pharmacy 127.9 ml/min; Est GFR (African American) 144.3; Est GFR (Non-African American) 124.5; Potassium 3.9 mmol/L (3.5-5.1)
[2020-06-24] MEDS: guaiFENesin 600 MG TABCR PO PRN (10:01)
[2020-06-24] MEDS: SENNA 8.6 MG TAB PO SCH (10:01)
[2020-06-24] MEDS: ENOXAPARIN INJ 40 MG/0.4 ML SYR SQ SCH (10:01)
[2020-06-24] MEDS: CETIRIZINE HCL 10 MG TABLET PO SCH (10:01)
[2020-06-24] MEDS: METHADONE HCL 5 MG TAB PO SCH (10:02)
--- NOTE | 2020-06-24 10:25 | Hospitalist Progress Note ---
Date of Service June 24, 2020 Assessment & Plan (1) Pneumonia: Sukhjinder is a 75-year-old male with past medical history significant for CAD, HTN, HLD, extensive smoking history and COPD, hemorrhoids admitted for severe sepsis with acute hypoxic respiratory failure, with initial complaint of RLE pain with findings consistent with critical limb ischemia. Now s/p right AKA Severe Sepsis Secondary to PNA (Aspiration vs. CAP) - Leukocytosis resolved today - CXR (), CTA significant for RLL consolidation, emphysema - Speech therapy consult for swallowing evaluation: no issues swallowing - Continue IV cefepime and vancomycin--anticipate discontinuing abx tomorrow - Of note, patient does also have underlying right side heart dysfunction - see echo results below Acute Hypoxemic Respiratory Failure - secondary to PNA, fluid overload (reduced EF), COPD with significant tobacco abuse history. Without much improvement 06/17-. 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 Required brief ICU stay. Please see consulting actuary notes for further details. - Palliative signed off as patient doing much better--will re-consult if his status changes - Will modify pain regimen to Tylenol 1000mg q8h, ibuprofen 600mg q6h, lidocaine patch on anterior chest wall, and will keep morphine 4mg prn for breakthrough pain COPD/Emphysema with Cor Pulmonale - Significant past smoking history: >55 pack-years (1+ ppd x >55 years) - Continue home montelukast, prednisone 5 mg p.o. twice daily, Anoro Ellipta inhaler. - Levalbuterol and nebulizer treatment PRN - Methylprednisolone IV x 1 as above - Pulmonology assisted in care - will require pulmonology appointment as outpatient AND PFTs - Echocardiogram demonstrating dilated RV with mild to moderate reduced systolic function Episode of Atrial Fibrillation - Noted to be in atrial fibrillation with RSR on 06/12, resolved s/p metoprolol - Continues to remain in NSR since that time - Continue metoprolol succinate 12.5mg PO BID - Continue to monitor on telemetry - Cardiology consulted, appreciate insight and recommendations: - While CHADSVASC is 3 (and therefore, by scoring, anticoagulation is clinically indicated), this single episode of AFib occurred during extenuating circumstances (ischemia, AHRF, hypovolemia) - Given persistence of NSR, will hold from starting anticoagulation at this time Episode of Chest Pain - resolved, likely soreness from chest compressions/persistent coughing - CP overnight on 06/22 - EKG with ST depressions in leads V1 through V3 - Troponin was repeated and was negative - Will monitor clinically for now CAD with Chronic Systolic CHF -- in ED, patient received fluid bolus which subsequently resulted in dyspnea - [place] approximately 4 years ago --> attempted PCI, vessel ruptured, PCI aborted - TTE demonstrated moderate RV dilation w/ mild to moderate reduction of systolic function. LV sys fxn mild to moderately reduced as well. EF 40-45%. Grade I diastolic dysfunction. Mild mitral and tricuspid regurgitation - Continue isosorbide mononitrate, ranolazine, metoprolol, lisinopril - Holding ASA in setting of BRBpR --> anticipate restarting prior to discharge - Cardiology consulted: -- Diurese as needed with IV Lasix if weight climbs or fluid retention. -- Goal to keep SpO2 saturations above 94%. -- Monitor I&O's, body weights. -- Continue beta suzanna, long-acting nitrate, ranolazine, and ACEI. Rectal Bleeding - While in ER patient had a BM with small amount of bright red blood in stool. - Has a history of hemorrhoids, bleed likely secondary to this. - Hgb stable on repeat checks - Holding ASA in setting of BRBpR --> anticipate restarting prior to discharge HLD: - Continue home atorvastatin HTN: - Now demonstrating normotension on repeat checks - Continue home isosorbide mononitrate, metoprolol, HCTZ, lisinopril CODE STATUS: DNR/DNI FEN/GI: Heart healthy, low-sodium diet DVT prophylaxis: Lovenox 40mg SQ daily to be held in the face of slightly worsening thrombocytopenia. Dispo: Med/surg for further antibiotic treatment (2) Peripheral vascular disease: (3) Sepsis with acute hypoxic respiratory failure: (4) Critical lower limb ischemia: Admission and Anticipated Discharge Date Admission Date: June 11, 2020 Supervising Physician Co-Signing Physician Notes I personally examined the patient and verified all flynn points of history and exam, discussed case, and agree with decision making with Dr Mason. Still feeling lousy. Biggest things are chest pain and right leg pain. Still coughing not bringing up as much sputum feels like he cannot get it up. Vitals noted, in general he is awake and alert pleasant no distress. HEENT normocephalic atraumatic mucous membranes are moist. Breathing is unlabored no accessory muscle use, no conversational dyspnea. Cranial nerves II through XII are grossly intact Sepsis/critical limb ischemia status post AKA, pneumoniapneumonia slowly improving. Continue Vanco for now, anticipate a need for 10 to 14 days of resistant gram-positive/MRSA treatment. Probably can stop the cefepime in the near future. Continue pulmonary toilet. Titrate pain controlled medications that would be available at present as first-line, still obviously keep narcotic pain medicine as backup for refractory pain, given that he had chest compressions and an amputation and has plenty of reasons for valid pain, but we discussed following to see if he is able to do okay on nonnarcotic pain regimenhe expresses appreciation of our concern, and a willingness to try Tylenol or ibuprofen as well as a lidocaine patch first. Thrombocytopeniano overt signs or symptoms of bleeding/etc. it has been somewhat low for most of his hospital stay, a little bit lower now, I suspect it is some degree of a low-grade consumptive physiology not a full-blown DIC. Particularly without any signs or symptoms. For now we will hold his subcu Lovenox, and continue to follow. DVT prophylaxishas been on Lovenox, but this will be held for now. Subjective Feels better today in terms of breathing and pain getting better. Expresses concern about pain management when he is discharged back to the nursing home--he feels they will not take him seriously or be able to give him the medications he gets here. Review of Systems Review of Systems: All systems reviewed & are unremarkable except as noted in Subjective Physical Exam Physical Exam: Constitutional: WD/WN, vitals as above, no acute distress Respiratory: CTAB, no wheezes or rhonchi, normal respiratory effort, no labored breathing Cardiovascular: RRR, no murmur, no edema, S1 & S2 normal Psychiatric: A+Ox3, euthymic affect Results & Data Results & Data ([facility]) Vital Signs (Past 12 Hours) Vital Signs Temp Pulse Resp BP BP Pulse Ox 06/24/20 07:45 36.6 C 91 H 18 128/83 95 06/24/20 05:43 93 H 22 90 06/24/20 05:33 36.8 C 94 H 22 154/72 H 89 L 06/24/20 03:39 78 94 06/23/20 22:42 36.8 C 93 H 18 144/80 H 91 Resident Activity Tracking Resident Involvement: Resident Care Provided Care Provided: Adult Hospital Medicine (1) Pneumonia Laterality: right Lung location: lower lobe of lung Pneumonia type: due to unspecified organism Qualified Code(s): J18.9 - Pneumonia, unspecified organism
[2020-06-24] MEDS ORDERED: ACETAMINOPHEN 500 MG TAB PO PRN (14:51)
[2020-06-24] MEDS: LIDOCAINE 5% 1 PATCH TD SCH (17:08)
--- NOTE | 2020-06-24 18:16 | Billing Data ---
Date of Service June 24, 2020 Coding Level of Care Code 16306 Subseq Hosp Care Lvl 3
[2020-06-24] MEDS: GABAPENTIN 100 MG CAP PO SCH (21:00)
[2020-06-25] MEDS: CEFEPIME 2,000 MG in SYRINGE 0 ML IV SCH ×3 (00:52→17:45)
[2020-06-25] MEDS: LEVALBUTEROL HCL 0.63 MG/3 ML NEB NEB PRN ×2 (02:33→18:23)
[2020-06-25] MEDS ORDERED: VANCOMYCIN TROUGH ONE (03:30)
[2020-06-25 04:03] LABS: Mean Corpuscular Hgb Conc 32.5 g/dL (32-36)
[2020-06-25 04:13] LABS: Hemoglobin 9.1 g/dL (14.0-18.0); Mean Corpuscular Hemoglobin 29.9 pg (25-34); Mean Corpuscular Volume 92.1 fL (80-100); RDW Coefficient of Variation 14.3 % (11.5-14.5); RDW Standard Deviation 48.3 fL (36.4-46.3); Red Blood Count 3.04 M/uL (4.7-6.1); White Blood Count 9.94 K/uL (4.8-10.8)
[2020-06-25] MEDS: VANCOMYCIN HCL 750 MG in SODIUM CHLORIDE 0.9% 250 ML IV SCH ×3 (04:18→20:09)
[2020-06-25 04:19] LABS: BUN Creatinine Ratio 25.2 (10-20); Calcium 7.5 mg/dl (8.5-10.1); Creatinine Clr Calc Pharmacy 139.9 ml/min; Est GFR (African American) 149.7; Est GFR (Non-African American) 129.2; Potassium 3.7 mmol/L (3.5-5.1)
[2020-06-25 04:31] LABS: Basophils # (auto) 0.07 K/uL (0-0.2); Basophils % (auto) 0.7 %; Eosinophils # (auto) 0.09 K/uL (0-0.5); Eosinophils % (auto) 0.9 %; Immature Granulocytes # (auto) 0.08 K/uL (0.00-0.02); Immature Granulocytes % (auto) 0.8 %; Lymphocytes # (auto) 2.07 K/uL (1.2-3.4); Lymphocytes % (auto) 20.8 %; Monocytes # (auto) 0.87 K/uL (0.11-0.59); Monocytes % (auto) 8.8 %; Neutrophils # (auto) 6.76 K/uL (1.4-6.5); Platelet Count 79 K/uL (130-400); Platelet Estimate Decreased (Normal); Polychromasia 1+
--- NOTE | 2020-06-25 07:41 | Hospitalist Progress Note ---
Date of Service June 25, 2020 Assessment & Plan (1) Pneumonia: Sukhjinder is a 75-year-old male with past medical history significant for CAD, HTN, HLD, extensive smoking history and COPD, hemorrhoids admitted for severe sepsis with acute hypoxic respiratory failure, with initial complaint of RLE pain with findings consistent with critical limb ischemia. Now s/p right AKA Severe Sepsis Secondary to PNA (Aspiration vs. CAP) - Leukocytosis resolved today - CXR (06/11, ), CTA significant for RLL consolidation, emphysema - Speech therapy consult for swallowing evaluation: no issues swallowing - Continue IV cefepime and vancomycin--will likely need MRSA coverage for 10-14 days (starting 06/20); possibly doxy at DC - Can likely DC cefepime on 06/26 - Of note, patient does also have underlying right side heart dysfunction - see echo results below Acute Hypoxemic Respiratory Failure - secondary to PNA, fluid overload (reduced EF), COPD with significant tobacco abuse history. Without much improvement 06/17-. 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 Required brief ICU stay. Please see logistics coordinator notes for further details. - Palliative signed off as patient doing much better--will re-consult if his status changes - Continue Tylenol 1000mg q8h prn, ibuprofen 600mg q6h prn, lidocaine patch on anterior chest wall, and will keep morphine 4mg prn for breakthrough pain - Tolerating pain regimen fairly well COPD/Emphysema with Cor Pulmonale - Significant past smoking history: >55 pack-years (1+ ppd x >55 years) - Continue home montelukast, prednisone 5 mg p.o. twice daily, Anoro Ellipta inhaler. - Levalbuterol and nebulizer treatment PRN - Methylprednisolone IV x 1 as above - Pulmonology assisted in care - will require pulmonology appointment as outpatient AND PFTs - Echocardiogram demonstrating dilated RV with mild to moderate reduced systolic function Episode of Atrial Fibrillation - Noted to be in atrial fibrillation with RSR on 06/12, resolved s/p metoprolol - Continues to remain in NSR since that time - Continue metoprolol succinate 12.5mg PO BID - Continue to monitor on telemetry - Cardiology consulted, appreciate insight and recommendations: - While CHADSVASC is 3 (and therefore, by scoring, anticoagulation is clinically indicated), this single episode of AFib occurred during extenuating circumstances (ischemia, AHRF, hypovolemia) - Given persistence of NSR, will hold from starting anticoagulation at this time Episode of Chest Pain - resolved, likely soreness from chest compressions/persistent coughing - CP overnight on 06/22 - EKG with ST depressions in leads V1 through V3 - Troponin was repeated and was negative - Will monitor clinically for now CAD with Chronic Systolic CHF -- in ED, patient received fluid bolus which subsequently resulted in dyspnea - [place] approximately 4 years ago --> attempted PCI, vessel ruptured, PCI aborted - TTE demonstrated moderate RV dilation w/ mild to moderate reduction of systolic function. LV sys fxn mild to moderately reduced as well. EF 40-45%. Grade I diastolic dysfunction. Mild mitral and tricuspid regurgitation - Continue isosorbide mononitrate, ranolazine, metoprolol, lisinopril - Holding ASA in setting of BRBpR --> anticipate restarting prior to discharge - Cardiology consulted: -- Diurese as needed with IV Lasix if weight climbs or fluid retention. -- Goal to keep SpO2 saturations above 94%. -- Monitor I&O's, body weights. -- Continue beta suzanna, long-acting nitrate, ranolazine, and ACEI. Rectal Bleeding - While in ER patient had a BM with small amount of bright red blood in stool. - Has a history of hemorrhoids, bleed likely secondary to this. - Hgb stable on repeat checks - Holding ASA in setting of BRBpR --> anticipate restarting prior to discharge HLD: - Continue home atorvastatin HTN: - Now demonstrating normotension on repeat checks - Continue home isosorbide mononitrate, metoprolol, HCTZ, lisinopril CODE STATUS: DNR/DNI FEN/GI: Heart healthy, low-sodium diet DVT prophylaxis: Lovenox 40mg SQ daily Dispo: Med/surg for further antibiotic treatment (2) Peripheral vascular disease: (3) Sepsis with acute hypoxic respiratory failure: (4) Critical lower limb ischemia: Admission and Anticipated Discharge Date Admission Date: June 11, 2020 Supervising Physician Co-Signing Physician Notes I personally examined the patient and verified all flynn points of history and exam, discussed case, and agree with decision making with Dr Mason. Still feeling about the same. Vaguely feels woozy todayin a way that is hard for him to describe. No new shortness of breath although he still feels at times like he cannot catch his breath well. Pain still present, although control seems a little bit better. HEENT normocephalic atraumatic mucous membranes are moist. Breathing is unlabored no accessory muscle use, no conversational dyspnea, difficult lung exam today due to positioning and effort, but seems to be more clear with better air entry than previous days. Cranial nerves II through XII are grossly intact Sepsis/critical limb ischemia status post AKA, pneumoniapneumonia slowly improving. Continue Vanco for now, anticipate a need for 10 to 14 days of resistant gram-positive/MRSA treatment (once doing well enough to consider discharge could switch to doxycycline). Probably can stop the cefepime tomorrow as he will have hit 10 days. Continue pulmonary toilet. Trying to utilize pain control medications that would be available at half-way as first-line, still obviously keep narcotic pain medicine as backup for refractory pain, given that he had chest compressions and an amputation and has plenty of reasons for valid pain, but he is amenable for a trial of first-line nonnarcotic pain regimenhe expresses appreciation of our concern, and a willingness to try Tylenol or ibuprofen as well as a lidocaine patch first. Thrombocytopeniano overt signs or symptoms of bleeding/etc. it has been somewhat low for most of his hospital stay, a little bit lower now, I suspect it is some degree of a low-grade consumptive physiology not a full-blown DIC. Particularly without any signs or symptoms. For now we will continue to hold his subcu Lovenox, and continue to follow. DVT prophylaxishas been on Lovenox, but on hold for now due to progressively low platelets. (no s/s HIT otherwise though and 4T's intermediate at worst) Subjective Patient feeling a bit worse this morning. He feels like he is drowsy and lightheaded. Says he feels like his breathing is basically the same. Pain remains, fairly well-controlled, much better than in the past. Lidocaine patch helping somewhat for his rib/sternum pain. Review of Systems Review of Systems: All systems reviewed & are unremarkable except as noted in Subjective Physical Exam Physical Exam: Constitutional: WD/WN, vitals as above, no acute distress Respiratory: Slight expiratory wheeze at right lung base, no rhonchi, normal respiratory effort, no labored breathing Cardiovascular: RRR, no murmur, no edema, S1 & S2 normal Psychiatric: A+Ox3, euthymic affect Results & Data Results & Data ([facility]) Vital Signs (Past 12 Hours) Vital Signs Temp Pulse Resp BP Pulse Ox 06/25/20 02:55 97 H 95 06/25/20 02:33 98 H 24 88 L 06/25/20 02:25 37.3 C 102 H 20 137/73 85 L 06/25/20 00:55 36.5 C 06/24/20 22:13 37.6 C H 92 H 18 113/69 93 Resident Activity Tracking Resident Involvement: Resident Care Provided Care Provided: Adult Hospital Medicine (1) Pneumonia Laterality: right Lung location: lower lobe of lung Pneumonia type: due to unspecified organism Qualified Code(s): J18.9 - Pneumonia, unspecified organism
[2020-06-25] MEDS: LIDOCAINE 5% 1 PATCH TD SCH (07:50)
[2020-06-25] MEDS: CETIRIZINE HCL 10 MG TABLET PO SCH (07:51)
[2020-06-25] MEDS: SENNA 8.6 MG TAB PO SCH (07:51)
--- NOTE | 2020-06-25 08:05 | Pharmacy Report ---
Pharmacy Abx Dose Short Note - Date of Service June 25, 2020 - Assessment & Plan Assessment 75 year old M receiving VANCOMYCIN + CEFEPIME for treatment of pneumonia Day # 6 vancomycin + cefepime (after having received 48 hrs of vanco + cefepime and a 48-72 hr window off abx) No sputum cx obtain to direct therapy No nasal swab for MRSA obtained to determine need for MRSA pulm coverage Procal was not trended to guide abx duration Renal fxn stable, afebrile, leukocytosis resolved Plan Vancomycin * Trough level of 18.5 mcg/mL is therapeutic. Prior doses hung on schedule. Level was drawn at the appropriate time * Continue dose of 750 mg IV every 8 hours * Goals for pulm infxn : AUC/MIRTHA 400-600 if organism has MIRTHA 1 or trough 15- 20mcg/mL * Will recheck trough in 2-3 days if therapy to continue Pharmacy will continue to follow and will adjust dose/frequency as necessary. Thank you.
--- NOTE | 2020-06-25 16:23 | Billing Data ---
Date of Service June 25, 2020 Coding Level of Care Code 03091 Subseq Hosp Care Lvl 3
[2020-06-25] MEDS: IBUPROFEN 600 MG TAB PO PRN (20:08)
[2020-06-25] MEDS: GABAPENTIN 100 MG CAP PO SCH (21:19)
[2020-06-25] MEDS: MoRPHine SULFATE 4 MG/ML 1 ML CARP\\VIAL IV PRN (21:24)
[2020-06-26] MEDS: CEFEPIME 2,000 MG in SYRINGE 0 ML IV SCH ×2 (00:22→09:51)
[2020-06-26] MEDS: VANCOMYCIN HCL 750 MG in SODIUM CHLORIDE 0.9% 250 ML IV SCH ×3 (04:22→20:45)
[2020-06-26] MEDS: LEVALBUTEROL HCL 0.63 MG/3 ML NEB NEB PRN ×2 (06:10→13:51)
[2020-06-26 06:21] LABS: Hematocrit (blood only) 26.7 % (42-52); Hemoglobin 8.8 g/dL (14.0-18.0); Mean Corpuscular Hemoglobin 30.4 pg (25-34); Mean Corpuscular Volume 92.4 fL (80-100); RDW Coefficient of Variation 14.4 % (11.5-14.5); RDW Standard Deviation 48.7 fL (36.4-46.3); Red Blood Count 2.89 M/uL (4.7-6.1); White Blood Count 7.93 K/uL (4.8-10.8)
[2020-06-26 06:39] LABS: Basophils # (auto) 0.05 K/uL (0-0.2); Basophils % (auto) 0.6 %; Eosinophils # (auto) 0.07 K/uL (0-0.5); Eosinophils % (auto) 0.9 %; Immature Granulocytes # (auto) 0.05 K/uL (0.00-0.02); Immature Granulocytes % (auto) 0.6 %; Lymphocytes # (auto) 1.82 K/uL (1.2-3.4); Monocytes # (auto) 0.56 K/uL (0.11-0.59); Monocytes % (auto) 7.1 %; Neutrophils # (auto) 5.38 K/uL (1.4-6.5); Neutrophils % (auto) 67.8 %; Platelet Count 94 K/uL (130-400); Platelet Estimate Normal (Normal)
[2020-06-26 06:43] LABS: BUN Creatinine Ratio 19.9 (10-20); Calcium 7.3 mg/dl (8.5-10.1); Creatinine Clr Calc Pharmacy 135.6 ml/min; Est GFR (African American) 147.8; Est GFR (Non-African American) 127.5
[2020-06-26] MEDS: ALBUT/IPRATROP 3MG/0.5MG NEB 3 ML VIAL NEB SCH ×3 (07:24→19:32)
[2020-06-26] MEDS: LIDOCAINE 5% 1 PATCH TD SCH (09:46)
[2020-06-26] MEDS: FLUTICASONE/VILANTEROL 100/25MCG 14 PUFFS/INHALER INH SCH (09:49)
[2020-06-26] MEDS: SENNA 8.6 MG TAB PO SCH (09:50)
[2020-06-26] MEDS: CETIRIZINE HCL 10 MG TABLET PO SCH (09:50)
[2020-06-26] MEDS: MoRPHine SULFATE 4 MG/ML 1 ML CARP\\VIAL IV PRN ×2 (12:36→20:45)
[2020-06-26] MEDS ORDERED: SODIUM CHLORIDE 0.65% NA SOLN 45 ML (OCEAN) ONE (14:08)
--- NOTE | 2020-06-26 16:29 | Hospitalist Progress Note ---
Date of Service June 26, 2020 Assessment & Plan (1) Pneumonia: Sukhjinder is a 75-year-old male with past medical history significant for CAD, HTN, HLD, extensive smoking history and COPD, hemorrhoids admitted for severe sepsis with acute hypoxic respiratory failure, with initial complaint of RLE pain with findings consistent with critical limb ischemia. Now s/p right AKA Severe Sepsis Secondary to PNA (Aspiration vs. CAP) - Leukocytosis (peaked at 34.32 on 06/14) -- resolved 06/24 -- WBC 7.93 today - Last CXR 06/18/20: pulmonary emphysema; interval removal of ET tube; minimal improvement in RLL zone pulmonary airspace opacities - Due to increased respiratory effort today and persistent acute hypoxemic respiratory failure, will get Chest CTA for further evaluation today - IV cefepime discontinued today (had 10 day course of cefepime) - Will continue tx with MRSA coverage with vancomycin for total of 14 days (started 06/20; plan to discontinue on 07/04) - If patient can be d/c prior to 07/04, will plan to switch to doxycycline - Of note, patient does also have underlying right side heart dysfunction - see echo results below Acute Hypoxemic Respiratory Failure - secondary to PNA, fluid overload (reduced EF of 40-45%), COPD with significant tobacco abuse history - Extubated 06/16 following R AKA procedure without difficulty - Continues to require NC >5L to maintain saturations 90-92%; titrate O2 to maintain SaO2 > 88-92% - Patient currently on 7 L supplemental O2 via oxymask at time of evaluation; titrated up to 11 L at the time of documentation - Will get chest CTA as noted above due to increased respiratory effort today and persistent acute hypoxemic respiratory failure - Continue symptomatic treatment/augmentation: - Flutter valve--important for continuing to clear chest congestion - Mucinex, Zyrtec to aid with upper/lower airway congestion - Methylprednisolone 40mg IV x 1 on 06/18 - COPD, PNA, volume management as noted - When appropriate, attempt wean off supplemental O2 Hypokalemia - Acute hypokalemia today at 3.0 (change from 3.7 yesterday) - Will recheck potassium and check magnesium - Replete if needed Thrombocytopenia - No overt signs or symptoms of bleeding - Platelet count is improving today from yesterday - Will continue to monitor - Lovenox held as of 06/24/20 - Continue to hold subcu Lovenox at this time Critical RLE ischemia - s/p above-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 Required brief ICU stay. Please see city collector notes for further details. - Palliative signed off as patient doing much better--will re-consult if his status changes - Continue Tylenol 1000mg q8h prn, ibuprofen 600mg q6h prn, lidocaine patch on anterior chest wall, and will keep morphine 4mg prn for breakthrough pain - Tolerating pain regimen fairly well COPD/Emphysema with Cor Pulmonale - Significant past smoking history: >55 pack-years (1+ ppd x >55 years) - Continue home montelukast, prednisone 5 mg p.o. twice daily, Anoro Ellipta inhaler. - Levalbuterol and nebulizer treatment PRN - Methylprednisolone IV x 1 as above - Pulmonology assisted in care - will require pulmonology appointment as outpatient AND PFTs - Echocardiogram demonstrating dilated RV with mild to moderate reduced systolic function Episode of Atrial Fibrillation - Noted to be in atrial fibrillation with RSR on 06/12, resolved s/p metoprolol - Continues to remain in NSR since that time - Continue metoprolol succinate 12.5mg PO BID - Continue to monitor on telemetry - Cardiology consulted, appreciate insight and recommendations: - While CHADSVASC is 3 (and therefore, by scoring, anticoagulation is clinically indicated), this single episode of AFib occurred during extenuating circumstances (ischemia, AHRF, hypovolemia) - Given persistence of NSR, will hold from starting anticoagulation at this time Episode of Chest Pain - resolved, likely soreness from chest compressions/persistent coughing - CP overnight on 06/22 - EKG with ST depressions in leads V1 through V3 - Troponin was repeated and was negative - Will monitor clinically for now CAD with Chronic Systolic CHF -- in ED, patient received fluid bolus which subsequently resulted in dyspnea - [place] approximately 4 years ago --> attempted PCI, vessel ruptured, PCI aborted - TTE demonstrated moderate RV dilation w/ mild to moderate reduction of systolic function. LV sys fxn mild to moderately reduced as well. EF 40-45%. Grade I diastolic dysfunction. Mild mitral and tricuspid regurgitation - Continue isosorbide mononitrate, ranolazine, metoprolol, lisinopril - Holding ASA in setting of BRBpR --> anticipate restarting prior to discharge HLD: - Continue home atorvastatin HTN: - Now demonstrating normotension on repeat checks - Continue home isosorbide mononitrate, metoprolol, HCTZ, lisinopril CODE STATUS: DNR/DNI FEN/GI: Heart healthy, low-sodium diet DVT prophylaxis: Lovenox 40mg SQ daily (currently being held as of 06/24 due to thrombocytopenia) Dispo: Med/surg for further antibiotic treatment (2) Peripheral vascular disease: (3) Sepsis with acute hypoxic respiratory failure: (4) Critical lower limb ischemia: Admission and Anticipated Discharge Date Admission Date: June 11, 2020 Supervising Physician Co-Signing Physician Notes Patient seen and examined with PGY-1 Dr. Christine. Agree with history, exam findings, assessment and plan of care as outlined. In brief, Mr. Lomeli is a 75-year-old male with past medical history significant for CAD, HTN, HLD, extensive smoking history and COPD, hemorrhoids admitted for severe sepsis with acute hypoxic respiratory failure, with initial complaint of RLE pain with findings consistent with critical limb ischemia. Now s/p right AKA. Today, he is very dyspneic. Reports that he does not want to talkgets very short of breath. Chest pain is a bit improved with lidocaine patch. Also notes that his left arm has been a bit more swollen recently. Vital signs and nursing notes reviewed. He is using accessory muscles and belly breathing. Tachypnea. Increase O2 requirement up to 11L. Diminished breath sounds through out. Tachycardic. No murmur. No edema in the left lower extremity. 1. Bilateral PE. Seen on CTA Chest 06/26. Clots in the left upper log segmental septal subsegmental pulmonary artery, right upper and right middle lobe segmental/subsegmental pulmonary arteries. No right heart strain. Started heparin gtt. Will need to be mindful of bleeding as he has thrombocytopenia. Checking left upper extremity Doppler for clot. 2. Sepsis secondary to pneumonia. Continue with vanc for continued MRSA coverage. D/Isaias cefepime today. 3. Aspiration pneumonia. Has completed a course of cefepime, continued MRSA. 4. Thrombocytopenia. Possibly consumptive, but low suspicion for DIC. Platelet count alvarado at 64 on 06/24. 5. Critical limb ischemia s/p AKA on the right. 6. Cardiac arrest immediately prior to procedure in the OR. Resus done in the operating room. 7. COPD with cor pulmonale. >55 pack year history. Continue home montelukast, pred 5mg BID, Breo Ellipta. And scheduled nebs. 8. Afib. Resolved. Has continued to be in sinus. Off metoprolol. Continue tele. 9. HFrEF. Hx of RI. EF 40-45%, grade 1 diastolic dysfunction. Mild mitral and tricuspid regurg. Daily weights. Holding metoprolol, isosorbide mononitrate, ranolazine, lisinopril. Holding ASA. 10. HTN. Holding meds as above. In addition, holding home HCTZ. Dispo: pending clinical improvement. Subjective Patient seen and evaluated at bedside today. Patient states that he feels very slightly improved from yesterday. He does report persistent SOB that he feels is unchanged. In the middle of today's interview, patient requested that I stop asking questions as he was becoming irritated and with increased work of b reathing. Despite not wanting to answer any further questions, he was agreeable to a physical examination. Review of Systems Respiratory: + cough and + dyspnea Cardiovascular: + chest pain Musculoskeletal: + phantom leg pain Physical Exam Physical Exam: GENERAL: Mild distress secondary to increased respiratory effort and pain. EYES: EOMI. HENT: Moist mucous membranes. Oxymask in place. RESPIRATORY: Obvious increased work of breathing. Intercostal retractions. Accessory abdominal muscle use. Tachypneic. Nonproductive cough. Auscultation of lungs was difficult as patient refused posterior lung field auscultation. Anterior superior lung lua clear to auscultation. CARDIOVASCULAR: Tachycardic. Regular rhythm. No murmurs. ABDOMEN: Soft. Non-tender. Normal bowel sounds. PSYCH: A/O x3. Euthymic affect. Results & Data Results & Data ([facility]) Vital Signs (Past 12 Hours) Vital Signs Temp Pulse Resp BP Pulse Ox 06/26/20 15:52 92 06/26/20 15:39 36.3 C L 105 H 20 103/69 90 06/26/20 14:11 92 06/26/20 14:08 97 06/26/20 14:05 97 06/26/20 13:52 110 H 24 92 06/26/20 13:48 92 06/26/20 13:44 80 L 06/26/20 07:35 36.5 C 75 18 125/76 91 Resident Activity Tracking Resident Involvement: Resident Care Provided Care Provided: Adult Hospital Medicine (1) Pneumonia Laterality: right Lung location: lower lobe of lung Pneumonia type: due to unspecified organism Qualified Code(s): J18.9 - Pneumonia, unspecified organism
[2020-06-26] MEDS ORDERED: OPTIRAY 320 125ml IV ONE (17:03)
--- NOTE | 2020-06-26 17:17 | CT Scan Report ---
CHEST CTA for PULMONARY ARTERIES CT DOSE: 252.62 mGy.cm HISTORY: Shortness of breath. TECHNIQUE: Multiaxial CT images of the chest were performed following the intravenous administration of contrast to evaluate the pulmonary arteries. Maximal intensity projection images were also obtaine d. A dose lowering technique was utilized adhering to the principles of ALARA. COMPARISON STUDY: Chest x-ray 06/18/2020. FINDINGS: Normal caliber thoracic aorta with no evidence for dissection. The heart is normal in size. Small bilateral pleural effusions which appear to be increased in size. No pericardial effusions. Ap proximately 75% focal stenosis at the proximal right subclavian artery near the origin of the right v ertebral artery. There is mild stenosis of approximately 40% within the left common carotid artery du e to the calcified plaque. A left subclavian Port-A-Cath terminates in the proximal SVC. There is mil d mediastinal lymphadenopathy. Dominant subcarinal lymph node measures 2.4 x 1.4 cm. No hilar lymphad enopathy. Normal esophagus. Limited views the upper abdomen demonstrate a normal liver, spleen, and a drenal glands. Right anterior fourth and fifth ribs deformities favor old, healed fractures. There is a filling defect seen within the left upper lobe segmental septal subsegmental pulmonary artery on i mage 166 consistent with a pulmonary embolus. There is also a small filling defect seen within a righ t upper and right middle lobe segmental/subsegmental pulmonary arteries consistent with additional si te of pulmonary emboli. No right-sided heart strain. No pneumothorax. Severe emphysema. Mild bronchia l wall thickening. Trace mucoid material within the bilateral mainstem bronchi. There are few opacifi ed distal bilateral lower lobe bronchi. Linear scarlike density seen within the lung apices. Consolid ation within the bilateral lower lobes posteriorly, right greater than the left. There is also patchy areas consolidation within the right middle lobe. This favors a right basilar pneumonia. The left lo wer lobe consolidation favors compressive atelectasis from the pleural effusion. Nodular area of thic kening within the right upper lobe pleural medially with a small focus of calcification. This measure s up to 1.1 cm in size and is best seen on image 255. This could represent scarring or a pleural lesi on. Therefore, [address] follow-up recommended for further evaluation. IMPRESSION: 1. Bilateral segmental/subsegmental pulmonary embolus described above. No evidence for right-sided he art strain. 2. Small bilateral pleural fusions. 3. Consolidation within the right lung base likely represents a pneumonia. This could be secondary to aspiration. 4. Nodular area of thickening within the right upper lobe pleura medially which could represent scarr ing versus a pleural lesion. [address] follow-up recommended to ensure stability. 5. Mild mediastinal lymphadenopathy. This also bears watching future examinations. 6. Emphysema. 7. Additional findings as described above. ACT 112: Negative or not required by law. Electronically signed by: Carlo Winters M.D. 06/26/2020 5:16 PM
[2020-06-26 17:46] LABS: Magnesium 1.6 mg/dl (1.8-2.4); Potassium 3.5 mmol/L (3.5-5.1)
[2020-06-26] MEDS ORDERED: HEPARIN IV BOLUS 4,000 UNITS in SYRINGE 0 ML IV STA (18:24)
[2020-06-26 19:02] LABS: INR 1.2 (0.9-1.1); Partial Thromboplastin Ratio 1.2; Partial Thromboplastin Time 31.9 Seconds (21.0-31.0); Prothrombin Time 11.9 Seconds (9.0-12.0)
[2020-06-26] MEDS: HEPARIN SODIUM/DEXTROSE 25,000 UNITS/500 ML BAG IV SCH (19:08)
[2020-06-26] MEDS: Heparin IV Adult Wt-Based Standard WITH Bolus Protocol IV SCH ×3 (19:19→19:20)
--- NOTE | 2020-06-26 20:26 | Ultrasound Report ---
LEFT UPPER EXTREMITY VENOUS DOPPLER HISTORY: Left upper extremity swelling; known pulmonary emboli on CTA today COMPARISON STUDY: None. FINDINGS: The left internal jugular vein is patent. The subclavian vein was obscured by the overlying bandages and port. There is normal flow and compressibility within the left axillary, basilic, brach ial, radial, ulnar, and visualized cephalic veins. IMPRESSION: No DVT within the visualized left upper extremity. ACT 112: Negative or not required by law. Electronically signed by: Carlo Winters M.D. 06/26/2020 8:25 PM
[2020-06-26] MEDS: guaiFENesin 600 MG TABCR PO PRN (20:45)
[2020-06-26] MEDS: GABAPENTIN 100 MG CAP PO SCH (20:45)
[2020-06-27 02:00] LABS: Acanthocytes 1+; BUN Creatinine Ratio 14.4 (10-20); Basophils # (auto) 0.05 K/uL (0-0.2); Basophils % (auto) 0.5 %; Calcium 7.9 mg/dl (8.5-10.1); Creatinine Clr Calc Pharmacy 97.3 ml/min; Eosinophils # (auto) 0.08 K/uL (0-0.5); Eosinophils % (auto) 0.7 %; Est GFR (African American) 128.9; Est GFR (Non-African American) 111.3; Hematocrit (blood only) 26.7 % (42-52); Hemoglobin 8.7 g/dL (14.0-18.0); Immature Granulocytes # (auto) 0.09 K/uL (0.00-0.02); Immature Granulocytes % (auto) 0.8 %; Lymphocytes # (auto) 2.44 K/uL (1.2-3.4); Lymphocytes % (auto) 22.3 %; Mean Corpuscular Hemoglobin 29.9 pg (25-34); Mean Corpuscular Hgb Conc 32.6 g/dL (32-36); Mean Corpuscular Volume 91.8 fL (80-100); Monocytes # (auto) 0.44 K/uL (0.11-0.59); Neutrophils # (auto) 7.85 K/uL (1.4-6.5); Neutrophils % (auto) 71.7 %; Platelet Count 126 K/uL (130-400); Platelet Estimate Normal (Normal); Potassium 3.3 mmol/L (3.5-5.1); RDW Coefficient of Variation 14.5 % (11.5-14.5); RDW Standard Deviation 48.7 fL (36.4-46.3); Red Blood Count 2.91 M/uL (4.7-6.1); White Blood Count 10.95 K/uL (4.8-10.8)
[2020-06-27 02:02] LABS: Partial Thromboplastin Time 53.3 Seconds (21.0-31.0)
[2020-06-27] MEDS: VANCOMYCIN HCL 750 MG in SODIUM CHLORIDE 0.9% 250 ML IV SCH ×3 (03:45→21:01)
[2020-06-27] MEDS: ALBUT/IPRATROP 3MG/0.5MG NEB 3 ML VIAL NEB SCH ×2 (07:07→19:25)
[2020-06-27] MEDS ORDERED: POTASSIUM CHLORIDE CRTAB 20 MEQ TABCR PO ONE (08:00)
[2020-06-27] MEDS: MAGNESIUM SULFATE / D5W 1 GM/100 ML BAG IV SCH ×2 (09:00→10:37)
[2020-06-27] MEDS: LIDOCAINE 5% 1 PATCH TD SCH (09:00)
[2020-06-27] MEDS: SENNA 8.6 MG TAB PO SCH (09:01)
[2020-06-27] MEDS: FLUTICASONE/VILANTEROL 100/25MCG 14 PUFFS/INHALER INH SCH (09:01)
[2020-06-27] MEDS: CETIRIZINE HCL 10 MG TABLET PO SCH (09:01)
[2020-06-27] MEDS: MoRPHine SULFATE 4 MG/ML 1 ML CARP\\VIAL IV PRN ×3 (09:17→19:54)
--- NOTE | 2020-06-27 09:33 | Hospitalist Progress Note ---
Date of Service June 27, 2020 Assessment & Plan (1) Pneumonia: Sukhjinder is a 75-year-old male with past medical history significant for CAD, HTN, HLD, extensive smoking history and COPD, hemorrhoids admitted for severe sepsis with acute hypoxic respiratory failure, with initial complaint of RLE pain with findings consistent with critical limb ischemia. Now s/p right AKA Bilateral PE - Patient with increased work of breathing and SOB on 06/26 --> chest CTA ordered - CTA chest 06/26/20: Bilateral segmental/subsegmental pulmonary embolus described above. No evidence for right-sided heart strain. Small bilateral pleural fusions. Consolidation within the right lung base likely represents a pneumonia. This could be secondary to aspiration. Nodular area of thickening within the right upper lobe pleura medially which could represent scarring versus a pleural lesion. [address] follow-up recommended to ensure stability. Mild mediastinal lymphadenopathy. This also bears watching future examinations. Emphysema. - LUE doppler yesterday (06/26) d/t complaints of swelling -- no DVT seen in LUE - Started on Heparin drip 06/26; PTT 53.3 today - Monitor for bleeding as patient is also w/ thrombocytopenia - Patient with no complaints/concerns of bleeding today; normal BM, olmedo catheter in place w/o gross hematuria Severe Sepsis Secondary to PNA (Aspiration vs. CAP) - Leukocytosis (peaked at 34.32 on 06/14); had resolved but again today is increasing -- 10.95 today - Last CXR 06/18/20: pulmonary emphysema; interval removal of ET tube; minimal improvement in RLL zone pulmonary airspace opacities - Repeat CXR today, 06/27/20 due to persistent SOB and increased work of breathing - CXR 06/27/20: Right greater than left bibasilar consolidative opacities have mildly progressed suggestive of probable pneumonia. Small bilateral pleural effusions have also mildly increased in size. Emphysema. - IV cefepime discontinued 06/26/20 after completing a 10 day course -- restarted cefepime today due to persistent pneumonia and persistent acute hypoxemic respiratory failure - Will continue tx with MRSA coverage with vancomycin for total of 14 days (started 06/20; plan to discontinue on 07/04) - Sputum cultures and procalcitonin ordered - Of note, patient does also have underlying right side heart dysfunction - see echo results below Acute Hypoxemic Respiratory Failure - secondary to PNA, fluid overload (reduced EF of 40-45%), COPD with significant tobacco abuse history - Extubated 06/16 following R AKA procedure without difficulty - Methylprednisolone 40mg IV x 1 on 06/18 - Continues to require NC >5L to maintain saturations 90-92%; titrate O2 to maintain SaO2 > 88-92% - Yesterday, patient required 7 to 11 L supplemental O2 via oxymask to maintain O2 saturation around 90% - Patient with persistent increased work of breathing and hypoxia - Bipap ordered -- patient did not tolerate/refused Bipap - High flow O2 ordered - Ordered Lasix 40mg IV x1 today - Continue symptomatic treatment/augmentation: - Flutter valve--important for continuing to clear chest congestion - Mucinex, Zyrtec to aid with upper/lower airway congestion - Albuterol neb tx q6h while awake - COPD, PNA, volume management as noted - When appropriate, attempt wean off supplemental O2 Hypokalemia - Acute hypokalemia and hypomagnesemia - Repleted with 40 mEq potassium and 2g magnesium - Will recheck BMP in AM Thrombocytopenia - No overt signs or symptoms of bleeding - Platelet count is improving - Will continue to monitor Critical RLE ischemia - s/p above-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 Required brief ICU stay. Please see lap checker notes for further details. - Palliative signed off as patient doing much better--will re-consult if his status changes - Continue Tylenol 1000mg q8h prn, ibuprofen 600mg q6h prn, lidocaine patch on anterior chest wall, and will keep morphine 4mg prn for breakthrough pain - Tolerating pain regimen fairly well COPD/Emphysema with Cor Pulmonale - Significant past smoking history: >55 pack-years (1+ ppd x >55 years) - Continue home montelukast, prednisone 5 mg p.o. twice daily, Anoro Ellipta inhaler. - Levalbuterol and nebulizer treatment scheduled q6h prn while awake and prn - Methylprednisolone IV x 1 as above - Pulmonology assisted in care - will require pulmonology appointment as outpatient AND PFTs - Echocardiogram demonstrating dilated RV with mild to moderate reduced systolic function Episode of Atrial Fibrillation - Noted to be in atrial fibrillation with RSR on 06/12, resolved s/p metoprolol - Continues to remain in NSR since that time - Cardiology consulted, appreciate insight and recommendations: - While CHADSVASC is 3 (and therefore, by scoring, anticoagulation is clinically indicated), this single episode of AFib occurred during extenuating circumstances (ischemia, AHRF, hypovolemia) - Given persistence of NSR, will hold from starting anticoagulation at this time CAD with Chronic Systolic CHF -- in ED, patient received fluid bolus which subsequently resulted in dyspnea - TX approximately 4 years ago --> attempted PCI, vessel ruptured, PCI aborted - TTE demonstrated moderate RV dilation w/ mild to moderate reduction of systolic function. LV sys fxn mild to moderately reduced as well. EF 40-45%. Grade I diastolic dysfunction. Mild mitral and tricuspid regurgitation - Holding isosorbide mononitrate, ranolazine, metoprolol, lisinopril - Holding ASA in setting of BRBpR --> anticipate restarting prior to discharge HLD: - Holding home atorvastatin HTN: - Now demonstrating normotension on repeat checks - Holding home isosorbide mononitrate, metoprolol, HCTZ, lisinopril CODE STATUS: DNR/DNI FEN/GI: Heart healthy, low-sodium diet DVT prophylaxis: Lovenox 40mg SQ daily (currently being held as of 06/24 due to thrombocytopenia) Dispo: Med/surg for further antibiotic treatment (2) Peripheral vascular disease: (3) Sepsis with acute hypoxic respiratory failure: (4) Critical lower limb ischemia: Admission and Anticipated Discharge Date Admission Date: June 11, 2020 Supervising Physician Co-Signing Physician Notes Patient seen and examined with PGY-1 Dr. Christine. Agree with history, exam findings, assessment and plan of care as outlined. In brief, Mr. Lomeli is a 75-year-old male with past medical history significant for CAD, HTN, HLD, extensive smoking history and COPD, hemorrhoids admitted for severe sepsis with acute hypoxic respiratory failure, with initial complaint of RLE pain with findings consistent with critical limb ischemia. Now s/p right AKA. Today, he is very dyspneic. Reports that he does not want to talkgets very short of breath. Chest pain is a bit improved with lidocaine patch. Also notes that his left arm has been a bit more swollen recently. Vital signs and nursing notes reviewed. He is using accessory muscles and belly breathing. Tachypnea. Using oxymask 10L. Diminished breath sounds through out, but improved compared to exam yesterday. Tachycardic. No murmur. No edema in the left lower extremity. 1. Bilateral PE. Seen on CTA Chest 06/26. Clots in the left upper log segmental septal subsegmental pulmonary artery, right upper and right middle lobe segmental/subsegmental pulmonary arteries. No right heart strain. Started heparin gtt. Will need to be mindful of bleeding as he has thrombocytopenia. Checking left upper extremity Doppler for clot. 2. Sepsis secondary to pneumonia. Continue with vanc for continued MRSA coverage. Restarted cefepime due to new leukocytosis; however, procal neg. 3. Hypoxic respiratory failure. Continues to require supplemental O2 with increased work of breathing. Does not want BiPAPhas not tolerated this in the past and does not want to use it. Did a trial of high flow nasal cannula but did not tolerate so switched back to oxymask. Multifactorialpneumonia, pulmonary effusions (likely secondary to third spacing). IV lasix x 1 dose today. Only continuous fluids are heparin gtt. Optimizing nebs. Scheduled mucinex. 4. Aspiration pneumonia. Continue vanc and restarted cefepime. 5. Thrombocytopenia. Possibly consumptive, but low suspicion for DIC. Platelet count alvarado at 64 on 06/24 and improving. 6. Hyponatremia. Possibly secondary to pulmonary process happening 7. Electrolyte abnormalities. Repleted Mg and K. 8. Critical limb ischemia s/p AKA on the right. 9. Cardiac arrest immediately prior to procedure in the OR. Resuscitation done in the operating room. 10. COPD with cor pulmonale. >55 pack year history. Continue home montelukast, pred 5mg BID, Breo Ellipta. And scheduled nebs. 11. Afib. Resolved. Has continued to be in sinus. Off metoprolol. Continue tele. 12. HFrEF. Hx of TX. EF 40-45%, grade 1 diastolic dysfunction. Mild mitral and tricuspid regurg. Daily weights. Holding metoprolol, isosorbide mononitrate, ranolazine, lisinopril. Holding ASA. 13. HTN. Holding meds as above. In addition, holding home HCTZ. Dispo: pending clinical improvement. Subjective Patient seen and evaluated at bedside this morning. Reports feeling "worse than yesterday." Complains of persistent SOB and increased work of breathing. Patient also with complaint of generalized pain/discomfort. + cough with intermittent sputum production; no specific color of the sputum reported. He has continued to require 10-11 L supplemental O2 via oxymask to maintain O2 saturations around 90%. Review of Systems Constitutional: + body aches and + weakness Respiratory: + cough, + dyspnea, + pain on inspiration and + sputum production; no hemoptysis Cardiovascular: + chest pain Gastrointestinal: no abdominal pain and no nausea Physical Exam Physical Exam: GENERAL: Mild distress secondary to increased respiratory effort and pain. EYES: EOMI. HENT: Moist mucous membranes. Oxymask in place. RESPIRATORY: Obvious increased work of breathing. Intercostal retractions. Accessory abdominal muscle use. Tachypneic. Nonproductive cough. Decreased air flow bilaterally in posterior lung lua; no audible crackles or rhonci. CARDIOVASCULAR: Tachycardic. Regular rhythm. No murmurs. ABDOMEN: Soft. Non-tender. Normal bowel sounds. PSYCH: A/O x3. Euthymic affect. Results & Data Results & Data ([facility]) Vital Signs (Past 12 Hours) Vital Signs Temp Pulse Resp BP Pulse Ox 06/27/20 07:23 36.7 C 104 H 18 163/83 H 91 06/27/20 07:08 103 H 22 91 06/27/20 00:24 97 H 28 H 92 06/26/20 22:00 36.6 C 98 H 36 H 131/76 89 L Resident Activity Tracking Resident Involvement: Resident Care Provided Care Provided: Adult Hospital Medicine (1) Pneumonia Laterality: right Lung location: lower lobe of lung Pneumonia type: due to unspecified organism Qualified Code(s): J18.9 - Pneumonia, unspecified organism
--- NOTE | 2020-06-27 09:50 | XRay Report ---
XR chest 1V portable HISTORY: 75 years-old Male SOB, hypoxia, increased work of breathing acute shortness of breath with hypoxia COMPARISON: Chest radiograph 06/18/2020, CTA chest 06/26/2020 TECHNIQUE: Portable AP view of the chest FINDINGS: Cardiomediastinal and hilar silhouettes are within normal limits. Left subclavian [id number] david ter is unchanged. Emphysema. No pneumothorax. Right greater than left small pleural effusions with bi basilar consolidation has progressively worsened. Degenerative changes of the shoulders and spine. IMPRESSION: 1. Right greater than left bibasilar consolidative opacities have mildly progressed suggestive of pro bable pneumonia. 2. Small bilateral pleural effusions have also mildly increased in size. 3. Emphysema. ACT 112: Negative or not required by law. The above report was generated using voice recognition software. It may contain grammatical, syntax o r spelling errors. Electronically signed by: Tommie Menendez M.D. 06/27/2020 9:49 AM
[2020-06-27 11:18] LABS: iSTAT Allen Test Pass; iSTAT Art Bld Gas pCO2 Correct 44 mmHg (35-46); iSTAT Art Bld Gas pH Corrected 7.428 (7.35-7.45); iSTAT Arterial Blood Gas HCO3 29 meg/L (19-24); iSTAT Arterial Blood Gas pCO2 44 mmHg (35-46); iSTAT Arterial Blood Gas pH 7.43 (7.35-7.45); iSTAT Arterial Blood Gas pO2 69 mmHg (80-95); iSTAT Arterial Blood Gas pO2 C 69; iSTAT Carbon Dioxide 30 mmol/L (24-31); iSTAT Hematocrit 25 % (42-52); iSTAT Hemoglobin 8.5 g/dl (14.0-18.0); iSTAT Potassium 3.4 mmol/L (3.3-5.0); iSTAT Site R Radial; iSTAT Sodium 129 mmol/L (135-144)
[2020-06-27] MEDS: CEFEPIME 2,000 MG in SYRINGE 0 ML IV SCH ×2 (12:26→21:01)
[2020-06-27] MEDS ORDERED: ALBUT/IPRATROP 3MG/0.5MG NEB 3 ML VIAL NEB SCH (14:45)
[2020-06-27 15:18] LABS: Mean Corpuscular Hgb Conc 33.2 g/dL (32-36)
[2020-06-27 15:31] LABS: Hematocrit (blood only) 27.4 % (42-52); Hemoglobin 9.1 g/dL (14.0-18.0); Mean Corpuscular Hemoglobin 30.2 pg (25-34); RDW Coefficient of Variation 14.5 % (11.5-14.5); RDW Standard Deviation 47.9 fL (36.4-46.3); Red Blood Count 3.01 M/uL (4.7-6.1); White Blood Count 11.47 K/uL (4.8-10.8)
[2020-06-27] MEDS: LEVALBUTEROL HCL 0.63 MG/3 ML NEB NEB PRN (15:36)
[2020-06-27 15:43] LABS: Platelet Count 95 K/uL (130-400)
[2020-06-27 15:44] LABS: Basophils # (auto) 0.06 K/uL (0-0.2); Basophils % (auto) 0.5 %; Echinocytes 1+; Eosinophils # (auto) 0.26 K/uL (0-0.5); Eosinophils % (auto) 2.3 %; Immature Granulocytes # (auto) 0.06 K/uL (0.00-0.02); Immature Granulocytes % (auto) 0.5 %; Lymphocytes # (auto) 1.44 K/uL (1.2-3.4); Lymphocytes % (auto) 12.6 %; Monocytes # (auto) 1.42 K/uL (0.11-0.59); Monocytes % (auto) 12.4 %; Neutrophils # (auto) 8.23 K/uL (1.4-6.5); Neutrophils % (auto) 71.7 %; Platelet Estimate Decreased (Normal); Polychromasia 1+
[2020-06-27 15:56] LABS: BUN Creatinine Ratio 12.3 (10-20); Calcium 7.4 mg/dl (8.5-10.1); Creatinine Clr Calc Pharmacy 93.2 ml/min; Est GFR (African American) 126.7; Est GFR (Non-African American) 109.3
[2020-06-27] MEDS ORDERED: FUROSEMIDE 40 MG in SYRINGE 0 ML IV ONE (17:15)
[2020-06-27] MEDS: HEPARIN SODIUM/DEXTROSE 25,000 UNITS/500 ML BAG IV SCH (19:55)
[2020-06-27] MEDS: guaiFENesin 600 MG TABCR PO SCH (20:00)
[2020-06-27] MEDS: GABAPENTIN 100 MG CAP PO SCH (21:02)
[2020-06-28] MEDS ORDERED: VANCOMYCIN TROUGH ONE (03:30)
[2020-06-28] MEDS: MoRPHine SULFATE 4 MG/ML 1 ML CARP\\VIAL IV PRN ×3 (03:47→20:32)
[2020-06-28] MEDS: CEFEPIME 2,000 MG in SYRINGE 0 ML IV SCH ×3 (03:47→20:32)
[2020-06-28] MEDS: VANCOMYCIN HCL 750 MG in SODIUM CHLORIDE 0.9% 250 ML IV SCH (03:47)
[2020-06-28 04:03] LABS: Mean Corpuscular Hgb Conc 32.5 g/dL (32-36)
[2020-06-28 04:08] LABS: Hematocrit (blood only) 25.5 % (42-52); Hemoglobin 8.3 g/dL (14.0-18.0); Mean Corpuscular Hemoglobin 29.9 pg (25-34); Mean Corpuscular Volume 91.7 fL (80-100); RDW Coefficient of Variation 14.4 % (11.5-14.5); RDW Standard Deviation 48.4 fL (36.4-46.3); Red Blood Count 2.78 M/uL (4.7-6.1); White Blood Count 12.03 K/uL (4.8-10.8)
[2020-06-28 04:17] LABS: Platelet Count 100 K/uL (130-400)
[2020-06-28 04:19] LABS: Basophils # (auto) 0.07 K/uL (0-0.2); Basophils % (auto) 0.6 %; Eosinophils # (auto) 0.12 K/uL (0-0.5); Immature Granulocytes # (auto) 0.06 K/uL (0.00-0.02); Immature Granulocytes % (auto) 0.5 %; Lymphocytes # (auto) 1.37 K/uL (1.2-3.4); Lymphocytes % (auto) 11.4 %; Monocytes # (auto) 1.34 K/uL (0.11-0.59); Monocytes % (auto) 11.1 %; Neutrophils # (auto) 9.07 K/uL (1.4-6.5); Neutrophils % (auto) 75.4 %; Platelet Estimate Decreased (Normal); Polychromasia 1+
[2020-06-28 04:22] LABS: Partial Thromboplastin Ratio 1.9
[2020-06-28 04:24] LABS: Alanine Aminotransferase 35 U/L (12-78); Albumin Level 1.6 gm/dl (3.4-5.0); Aspartate Aminotransferase 34 U/L (15-37); BUN Creatinine Ratio 16.9 (10-20); Blood Urea Nitrogen 9 mg/dl (7-18); Calcium 7.4 mg/dl (8.5-10.1); Carbon Dioxide 31 mmol/L (21-32); Chloride 97 mmol/L (98-107); Creatinine Clr Calc Pharmacy 86.1 ml/min; Est GFR (African American) 122.6; Est GFR (Non-African American) 105.8; Glucose 113 mg/dl (70-99); Potassium 3.7 mmol/L (3.5-5.1); Sodium 133 mmol/L (136-145)
[2020-06-28 04:28] LABS: Partial Thromboplastin Time 50.7 Seconds (21.0-31.0)
[2020-06-28 04:30] LABS: Albumin Globulin Ratio 0.4 (0.9-2); Alkaline Phosphatase 61 U/L (45-117); Bilirubin,Total 0.7 mg/dl (0.2-1); Globulin 3.8 gm/dl (2.5-4.0); Phosphorus 3.2 mg/dl (2.5-4.9); Prealbumin < 3.0 mg/dl (20-40); Total Protein 5.4 gm/dl (6.4-8.2)
[2020-06-28] MEDS: ALBUT/IPRATROP 3MG/0.5MG NEB 3 ML VIAL NEB SCH ×3 (07:45→19:35)
--- NOTE | 2020-06-28 08:36 | XRay Report ---
SINGLE VIEW CHEST CLINICAL HISTORY: Hypoxia. Dyspnea. FINDINGS: An AP, portable, upright chest radiograph is compared to study dated 06/27/2020 and correlat ed with chest CT dated 06/26/2020. The examination is degraded by portable technique, apical lordotic positioning, and patient rotation. A left subclavian central venous catheter is unchanged in position . The heart is top normal for projection noting atherosclerotic calcification of the thoracic aorta. The pulmonary vasculature is noncongested. Enlargement of the central pulmonary arteries suggests pul monary artery hypertension. Chronic interstitial thickening and advanced emphysematous change is javan lar to previous. Increasing airspace opacities are suggested in the left midlung. There are layering pleural effusions, right larger than left with bibasilar consolidation. This is similar to previous. No pneumothorax is seen. The skeletal structures are osteopenic. The bony thorax is grossly intact. IMPRESSION: 1. Advanced emphysema. 2. Right larger than left pleural effusions with bibasilar consolidation is similar to previous. Ther e are increasing patchy opacities in the left midlung. Correlate clinically for evidence of pneumonia /aspiration pneumonitis. Radiographic follow-up to resolution is recommended. ACT 112: Negative or not required by law. Electronically signed by: Alejandro Panda M.D. 06/28/2020 8:34 AM
[2020-06-28] MEDS ORDERED: FUROSEMIDE 40 MG in SYRINGE 0 ML IV ONE (09:30)
[2020-06-28] MEDS: FLUTICASONE/VILANTEROL 100/25MCG 14 PUFFS/INHALER INH SCH (09:47)
[2020-06-28] MEDS: guaiFENesin 600 MG TABCR PO SCH ×2 (09:47→20:31)
[2020-06-28] MEDS: CETIRIZINE HCL 10 MG TABLET PO SCH (09:47)
[2020-06-28] MEDS: LIDOCAINE 5% 1 PATCH TD SCH (09:47)
[2020-06-28] MEDS: SENNA 8.6 MG TAB PO SCH (09:47)
[2020-06-28] MEDS: methylPREDNISolone 30 MG in SYRINGE 0 ML IV SCH ×2 (10:15→18:02)
--- NOTE | 2020-06-28 10:21 | Pulmonary Consultation ---
Date of Consultation June 28, 2020 Assessment & Plan (1) COPD (chronic obstructive pulmonary disease): COPD type: unspecified COPD Qualified Code(s): J44.9 - Chronic obstructive pulmonary disease, unspecified (2) Ischemia of right lower extremity: (3) Pneumonia: Laterality: right Lung location: lower lobe of lung Pneumonia type: due to unspecified organism Qualified Code(s): J18.9 - Pneumonia, unspecified organism (4) Sepsis: Sepsis acute organ dysfunction status: without acute organ dysfunction Sepsis type: sepsis due to unspecified organism Qualified Code(s): A41.9 - Sepsis, unspecified organism (5) Cardiac arrest: Impression: 75-year-old male admitted with ischemic lower extremity. He presented with pneumonia and hypoxemic respiratory failure in the setting of obstructive lung disease. He was taken to the OR today for eheip-ale-rlak amputation and apparently post induction developed cardiac arrest and required brief CPR. He was extubated 06/16/2020. Patient got hypoxic on the floor on 06/26/2020 for which CTA was done and it showed PE. Pulmonary were reconsulted for the same CTA to 2220 personally reviewed: Bilateral pleural effusions appreciated more on the right side, right lower lobe consolidative process appreciated with atelectasis, severe centrilobular emphysema. Bilateral subsegmental and seg mental PE, no evidence of right heart strain. --Acute hypoxic respiratory failure Multifactorial Likely secondary to acute PE on top of severe COPD with emphysema Patient's systolic CHF also playing a role Right lower lobe pneumonia. Continue with antibiotics O2 supplementation to keep oxygen between 80-92% --Severe COPD with emphysema Gold class D Continue with Breo. We will add Incruse. On chronic prednisone at home --Acute PE No right heart strain Hemodynamically stable No indication for TPA Patient's number cytopenia will improve out TPA as well Plan: Continue with oxygen supplementation to keep oxygen saturation between 88-92% BiPAP nightly and as needed shortness of breath. Add Incruse. Continue with incentive spirometry and flutter valve with mucolytic. Continue with diuretics to keep the patient negative balance. Continue with antibiotics. I doubt patient is in COPD exacerbation. We will decrease the Solu-Medrol to 40 mg once a day. Please note the above document was generated using voice recognition software. It may contain grammatical, syntax or spelling errors.Any formal questions or concerns about the content, text or information contained within the body of this dictation should be directly addressed to the provider for clarification. History of Present Illness Attending Physician: Trae Nunez DO History of Present Illness 75-year-old male with past medical history of severe COPD with emphysema, systolic CHF, peripheral vascular disease was initially admitted to the hospital and intubated for pneumonia. Patient had also right-sided AKA. During the OR for [facility] patient had cardiac arrest as well. He was downgraded to the floor earlier last week. Patient was clinically doing good until 06/26/2020 when he got hypoxic CTA was ordered which showed PE. Pulmonary were consulted for the persistent hypoxia. At the time of examination patient was on 15 L oxygen mask saturating 93%. He was breathing in the high teens to low 20s. Occasionally he will use this second muscles. Patient stated that he felt better compared to when he was before. Does complain of cough and unable to bring up phlegm. Denies any chest pain. No headache, no dizziness, no nausea or vomiting. Social history: Getting [id number] smoking history Allergies Allergy/AdvReac Type Severity Reaction Status Date / Time clindamycin Allergy Unknown Unknown Verified 06/11/20 20:20 Penicillins Allergy Unknown Unknown Verified 06/11/20 20:20 Home Medications Medication Instructions Recorded Confirmed Type aspirin 81 mg tablet,delayed 81 mg PO DAILY 05/26/19 06/11/20 History release atorvastatin 40 mg tablet 40 mg PO HS 05/26/19 06/11/20 History ciclesonide 160 mcg/actuation 2 puffs INH BID 05/26/19 06/11/20 History aerosol inhaler hydrochlorothiazide 12.5 mg tablet 12.5 mg PO DAILY 05/26/19 06/11/20 History isosorbide mononitrate 30 mg 30 mg PO DAILY 05/26/19 06/11/20 History tablet,extended release 24 hr lisinopril 5 mg tablet 5 mg PO DAILY 05/26/19 06/11/20 History metoprolol succinate 25 mg 12.5 mg PO BID 05/26/19 06/11/20 History tablet,extended release 24 hr montelukast 10 mg tablet 10 mg PO DAILY 05/26/19 06/11/20 History nitroglycerin 0.4 mg sublingual 0.4 mg SL DAILY PRN 05/26/19 06/11/20 History tablet prednisone 5 mg tablet 5 mg PO BID 05/26/19 06/11/20 History ranolazine 500 mg tablet,extended 500 mg PO BID 05/26/19 06/11/20 History release,12 hr umeclidinium 62.5 mcg-vilanterol 1 puffs INH DAILY 05/26/19 06/11/20 History 25 mcg/actuation powdr for inhalation diclofenac sodium [Voltaren] 50 mg PO BID 06/11/20 06/11/20 History levalbuterol tartrate [Xopenex HFA] 2 inh INHALATION QID PRN 06/11/20 06/11/20 History Patient History Medical History AAA (abdominal aortic aneurysm) CAD (coronary artery disease) Cardiomyopathy, ischemic CHF (congestive heart failure) Chronic steroid use COPD (chronic obstructive pulmonary disease) Critical lower limb ischemia Dyslipidemia Emphysema of lung History of ID (myocardial infarction) Ischemia of right lower extremity Peripheral vascular disease Tobacco abuse Surgical History History of percutaneous coronary intervention Hx of cardiac catheterization Family History Other Family history non-contributory Social History Smoking Status: Unknown if ever smoked Tobacco Type: Cigarettes Age Started Using Tobacco: 18; packs per day: 1; Number of Years Since Quit: 2; Hx Alcohol Use: No Hx Substance Use: No Preferred Language: Macedonian Communication Ability: Effective Film Numberer Required: No marital status: / Current Living Situation: Other Current Living Situation Comment: [facility] [place] How many Children do You have: 1 Feels Safe at Home: Yes Assistive Devices: Glasses and Wheelchair Review of Systems Review of Systems: All systems reviewed & are unremarkable except as noted in HPI & below Physical Exam Physical Exam: Constitutional: No acute distress HEENT: EOMI, PERRLA Respiratory system: Decreased air entry bilaterally, positive crackles bilateral lower lobes, no wheeze, no rhonchi CVS: S1-S2 positive, no murmurs or gallops Abdomen: Soft, nontender, nondistended, positive bowel sounds x4 Extremities: +2 pulses bilaterally radialis/left dorsalis pedis, no cyanosis, no edema, right AKA Neuro: Awake alert oriented x3 Psych: Normal mood and affect G/U: No [place] Skin: no rashes, warm and dry Lymphatic: no cervical or axillary lymphadenopathy Results & Data Results & Data ([facility]) Vital Signs (Past 12 Hours) Vital Signs Temp Pulse Resp BP Pulse Ox 06/28/20 08:00 36.6 C 98 H 24 121/64 90 06/28/20 04:11 36.9 C 93 H 22 94 06/28/20 03:38 06/28/20 03:37 PG Care Time/CCT Total # of Minutes Spent Total Time Spent with Patient: Total time spent is greater than 50% in coordination of care (as documented) at patient's floor/unit and/or counseling patient: Coding Level of Care Code 01805 Initial Inpt Care Lvl 3 Diagnoses COPD (chronic obstructive pulmonary disease) J44.9 COPD type: unspecified COPD Ischemia of right lower extremity I99.8 Pneumonia J18.9 Laterality: right Lung location: lower lobe of lung Pneumonia type: due to unspecified organism Sepsis A41.9 Sepsis acute organ dysfunction status: without acute organ dysfunction Sepsis type: sepsis due to unspecified organism Cardiac arrest I46.9
[2020-06-28] MEDS ORDERED: POLYETHYLENE (MIRALAX) 17 GM PACK PO PRN (10:33)
[2020-06-28] MEDS: LEVALBUTEROL HCL 0.63 MG/3 ML NEB NEB PRN (11:19)
--- NOTE | 2020-06-28 11:47 | XCELERA ---
[id number]
--- NOTE | 2020-06-28 12:16 | Hospitalist Progress Note ---
Date of Service June 28, 2020 Assessment & Plan (1) Pneumonia: Sukhjinder Lomeli is a 75-year-old male with past medical history significant for CAD, HTN, HLD, extensive smoking history and COPD, hemorrhoids admitted for severe sepsis with acute hypoxic respiratory failure, with initial complaint of RLE pain with findings consistent with critical limb ischemia. Now s/p right AKA Acute Hypoxemic Respiratory Failure - Multifactorial including pneumonia, COPD with significant tobacco use ( > 55 pack-year history), bilateral PE, and pulmonary edema/effusions. - Increasing O2 requirements; increased from 10L yesterday to 15L overnight; pe rsistent increased work of breathing and tachypnea - Encouraged BiPap and/or high flow oxygen but patient did not tolerate and refused both of these - Consult pulmonology. Appreciate their recommendations. - See below for details. Bilateral PE - CTA chest 06/26/20: Bilateral segmental/subsegmental pulmonary embolus described above. No evidence for right-sided heart strain. Small bilateral pleural fusions. Consolidation within the right lung base likely represents a pneumonia. This could be secondary to aspiration. Nodular area of thickening within the right upper lobe pleura medially which could represent scarring versus a pleural lesion. [address] follow-up recommended to ensure stability. Mild mediastinal lymphadenopathy. This also bears watching future examinations. Emphysema. - LUE doppler 06/26 due to complaints of swelling -- no DVT seen in LUE - Started on Heparin drip 06/26; PTT 50.7 today - Monitor for bleeding as patient is also w/ thrombocytopenia - Patient with no complaints/concerns of bleeding; normal BM, olmedo catheter in place w/o gross hematuria Pneumonia - Leukocytosis at 12.03 - CXR 06/27/20: Right greater than left bibasilar consolidative opacities have mildly progressed suggestive of probable pneumonia. Small bilateral pleural effusions have also mildly increased in size. Emphysema. - Repeat CXR today 06/28: Advanced emphysema. Right larger than left pleural effusions with bibasilar consolidation is similar to previous. There are increasing patchy opacities in the left midlung. - Previously completed 10 day course of IV cefepime on 06/26/20 for pneumonia. Due to persistent pneumonia and hypoxemic respiratory failure, restarted cefepime on 06/27/20 - Treated with vancomycin for 8 days. Discontinue vancomycin today, 06/28/20. - Sputum cultures and procalcitonin ordered 06/27/20 - Sputum culture with many yeast and many gram positive cocci. Will await final report. - Repeat procal 0.40 COPD/Emphysema with Cor Pulmonale - Significant past smoking history: >55 pack-years - Duoneb treatment scheduled q6h while awake and prn - Previously on prednisone 5mg BID but had been stopped. Methylprednisolone 30mg q8h started today - increased Mucinex to 1,200mg BID and Zyrtec daily - Breo daily Pulmonary Edema and Effusions - Small b/l pleural effusions noted on both CTA 06/26 and CXR 06/27 - Repeat CXR 06/28 w/ R > L pleural effusions with bibasilar consolidation similar to previous - Received 40mg IV lasix 06/27 with some improvement - Continue daily IV lasix - Monitor I/O's - TTE 06/28 LV sys fxn normal (55-60%), right ventricle is mild to moderately dilated, right ventricular systolic function is mildly reduced, right ventricular systolic pressure is elevated at 40-50mmHg. - Compared to last prior echo, there has been improvement int he overall left ventricular function. Some improvement in RV function. Estimated pulmonary pressures appear higher. CAD with Chronic Systolic CHF - Hx of NV approximately 4 years ago (attempted PCI, vessel ruptured, PCI aborted) - TTE 06/12/20 demonstrated moderate RV dilation w/ mild to moderate reduction of systolic function. LV sys fxn mild to moderately reduced as well. EF 40-45%. Grade I diastolic dysfunction. Mild mitral and tricuspid regurgitation - Repeat TTE as noted above -- improvement in LV sys function - Holding home isosorbide mononitrate, ranolazine, metoprolol, lisinopril, and ASA Protein Malnutrition - Albumin 1.6 today - Nutrition consult ordered Hyponatremia - Possibly associated with pulmonary processes as noted above or with fluid overload - Patient being diuresed with lasix for the pulmonary edema - Will continue to monitor with BMP qAM Electrolyte abnormalities - Hypokalemia and Hypomagnesium - Acute hypokalemia and hypomagnesemia 06/27/20 repleted with 40 mEq potassium and 2g magnesium - Repeat potassium wnl (3.7) and magnesium wnl (2.0) on 06/28/20 - Will continue to monitor BMP qAM Thrombocytopenia - No overt signs or symptoms of bleeding - Platelet count is improving and is 100 today (alvarado 64 on 06/24) - Will continue to monitor Critical RLE ischemia - 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 Required brief ICU stay. Please see inten sivist notes for further details. - Previous palliative consult but palliative signed off as patient doing much better; may consider re-consult if current conditions, including pulmonary processes as noted above, do not improve - Continue Tylenol 1000mg q8h prn, ibuprofen 600mg q6h prn, lidocaine patch on anterior chest wall, and morphine 4mg prn for breakthrough pain - Tolerating pain regimen fairly well Episode of Atrial Fibrillation--Resolved - Noted to be in atrial fibrillation with RVR on 06/12, resolved s/p metoprolol - Continues to remain in NSR since that time - Cardiology consulted, appreciate insight and recommendations: - While CHADSVASC is 3 (and therefore, by scoring, anticoagulation is clinically indicated), this single episode of AFib occurred during extenuating circumstances (ischemia, AHRF, hypovolemia) - Given persistence of NSR, will hold from starting anticoagulation at this time - Continue to monitor on tele HLD: - Holding home atorvastatin HTN: - Holding home isosorbide mononitrate, metoprolol, HCTZ, lisinopril CODE STATUS: DNR/DNI FEN/GI: Heart healthy, low-sodium diet DVT prophylaxis: On Heparin due to PEs Dispo: PCU Admission and Anticipated Discharge Date Admission Date: June 11, 2020 Supervising Physician Co-Signing Physician Notes Patient seen and examined with PGY-1 Dr. Christine. Agree with history, exam findings, assessment and plan of care as outlined. In brief, Mr. Lomeli is a 75-year-old male with past medical history significant for CAD, HTN, HLD, extensive smoking history and COPD, hemorrhoids admitted for severe sepsis with acute hypoxic respiratory failure, with initial complaint of RLE pain with findings consistent with critical limb ischemia. Now s/p right AKA. Overnight, increased O2 requirement from 10L to 15L. Declined nebs this morning because he feels that nebs make him worse. Causes him to cough. He is not able to get the mucous out. Vital signs and nursing notes reviewed. Ill appearing. He is using accessory muscles and belly breathing. Tachypnea. Using oxymask 15L. Desats to the high 80s with movement. Diminished breath sounds through out, with crackles and ronchi in the bases. Right leg amputation site looks goodsome ecchymosis, but non-tender, non- erythematous. Erik are clean. No drainage. 1. Hypoxic respiratory failure. Multifactorial. Increasing O2 requirements. C urrently at 15L oxymask. Did a trial of high flow nasal cannula but did not tolerated. See below of details of each component. Appreciate pulmonology recommendations. 2. Pneumonia. ?aspiration vs hospital acquired. Suspect this is more likely to be aspiration related given prolonged illness. Procal neg, still with mild leukocytosis. Continue with cefepime. Vanc stopped. 3. Pulmonary edema and effusions. Previous Echo with decreased EF. Likely also some third spacing given low albumin. Received 40mg IV Lasix yesterday and today. Continue with daily IV Lasix. Monitor I/Os. Repeat limited Echo today to follow up on whether there is new right heart strain and status of his left ventricular function. Improvement in RV and LV function. EF 55-60%. 4. Bilateral PE. Seen on CTA Chest 06/26. Clots in the left upper log segmental septal subsegmental pulmonary artery, right upper and right middle lobe segmental/subsegmental pulmonary arteries. No right heart strain. Started heparin gtt. Will need to be mindful of bleeding as he has thrombocytopenia. 5. COPD. > 55 pack year history. Imaging suggestive of severe lung disease. Previously on pred 5mg BID, but this was stopped. Wonder if some of his diminishing respiratory status is related to his poor baseline lung function. Started solumedrol, flutter valve. Continue with Mucinex scheduled and scheduled nebs, PRN nebs. Continue home Breo 6. HFrEF. Hx of NV. Prior echo this admissions showed EF 40-45% with grade 1 diastolic dysfunction. Mild mitral and tricuspid regurg. Holding his home metoprolol, isosorbide mononitrate, ranolazine, Lisinopril and aspirin. 7. Thrombocytopenia. Possibly consumptive, but low suspicion for DIC. Platelet count alvarado at 64 on 06/24 and improving. 8. Hyponatremia. Possibly secondary to pulmonary process happening vs fluid overloaded. 9. Electrolyte abnormalities. Repleted Mg and K. 10. HTN. Blood pressures have been intermittently elevated. Holding meds as above. In addition, holding home HCTZ. 11. Critical limb ischemia s/p AKA on the right. Stump looks good. No signs of infection or breakdown at the incision site. 12. Cardiac arrest immediately prior to procedure in the OR. Resuscitation done in the operating room. Has some chest pain from compressions. Using lidocaine patch with good relief. 13. Afib. Resolved. Has continued to be in sinus. Off metoprolol. Continue tele. Dispo: Transferred to PCU today. Subjective Patient seen and evaluated at bedside this morning. Initially reports feeling slightly better than yesterday but after speaking for a few minutes has progressively worsening SOB. It is noted that patient refused neb tx this AM; he states that they "don't help" and that although they break up the mucus and he coughs more, he feels that the SOB is worse because he is unable to completely bring up the sputum. Patient's oxygen requirement is noted to have increased overnight from 10L to 15L. Still with generalized pain and discomfort. Review of Systems Constitutional: + weakness + pain Respiratory: + dyspnea Cardiovascular: + chest pain Physical Exam Physical Exam: GENERAL: Ill appearing. Mild distress secondary to increased respiratory effort and pain. EYES: EOMI. HENT: Moist mucous membranes. Oxymask in place. RESPIRATORY: Obvious increased work of breathing. Intercostal retractions. Accessory abdominal muscle use. Tachypneic. Nonproductive cough. Decreased air flow bilaterally. + rhonci throughout bilateral lower lung lua. CARDIOVASCULAR: Tachycardic. Regular rhythm. No murmurs. ABDOMEN: Soft. Normal bowel sounds. EXTREMITIES: Right leg amputation site examined. Erik in place w/ no associated erythema. No warmth. No discharge. No tenderness to palpation. PSYCH: A/O x3. Euthymic affect. Results & Data Results & Data ([facility] [place]) Vital Signs (Past 12 Hours) Vital Signs Temp Pulse Pulse Resp BP Pulse Ox 06/28/20 11:22 109 H 22 92 06/28/20 10:33 37.3 C 107 H 16 143/94 H 90 06/28/20 08:00 36.6 C 98 H 24 121/64 90 06/28/20 04:11 36.9 C 93 H 22 94 Resident Activity Tracking Resident Involvement: Resident Care Provided Care Provided: Adult Hospital Medicine (1) Pneumonia Laterality: right Lung location: lower lobe of lung Pneumonia type: due to unspecified organism Qualified Code(s): J18.9 - Pneumonia, unspecified organism
[2020-06-28] MEDS ORDERED: SODIUM CHLORIDE 0.65% NA SOLN 45 ML (OCEAN) PRN (19:53)
[2020-06-28] MEDS ORDERED: SALINE NASAL 225 SPRAYS, GENTAMICIN SULFATE 60 MG, BARCODE IDENTIFIER 0 EA PRN (19:56)
[2020-06-28] MEDS: GABAPENTIN 100 MG CAP PO SCH (20:31)
[2020-06-28] MEDS: HEPARIN SODIUM/DEXTROSE 25,000 UNITS/500 ML BAG IV SCH (23:56)
[2020-06-29] MEDS: CEFEPIME 2,000 MG in SYRINGE 0 ML IV SCH ×3 (03:24→20:07)
[2020-06-29] MEDS ORDERED: ALBUT/IPRATROP 3MG/0.5MG NEB 3 ML VIAL NEB STA (03:33)
--- NOTE | 2020-06-29 03:44 | Communication Note ---
Date of Service: June 29, 2020 Subjective: Nursing messaged me at 3:15 AM about patient having an increased oxygen requirement from 15L oxymask ---> high flow at 30L and 90% with saturation in the mid 90's. Objective: RR: 28 Pulm: tachypneic, increased work of breathing with accessory muscle use, poor air movement no wheeze appreciated crackles bilaterally A/P: Appears to be exacerbation of pulmonary congestion, with COPD potentially playing a role and no signs of a worsening infection - stat CXR with what appears to be worsening pulmonary congestion from 1 day prior - Lasix 40 mg IV - one time duoneb, last one was at 7PM - discussed goal of titrating oxygen for a saturation of 88-92 - ordered blood gas, will follow up - discussed bipap and pt. said he was willing to try this, respiratory was in the room and was going to attempt
[2020-06-29] MEDS ORDERED: FUROSEMIDE 40 MG in SYRINGE 0 ML IV ONE (03:45)
[2020-06-29 03:53] LABS: Base Excess ABG 7.2 mEq/L (-9-1.8); HCO3 ABG 32 mmol/L (19-24); Oxygen Saturation ABG 96.1 % (90-95); PCO2 ABG 48 mmHg (35-46); PO2 ABG 81 mmHg (80-95); pH ABG 7.45 (7.35-7.45)
[2020-06-29 04:05] LABS: Allen Test POS (Pos)
[2020-06-29 06:10] LABS: Mean Corpuscular Hgb Conc 32.6 g/dL (32-36)
[2020-06-29] MEDS: MoRPHine SULFATE 4 MG/ML 1 ML CARP\\VIAL IV PRN ×3 (06:13→18:05)
[2020-06-29 06:20] LABS: Partial Thromboplastin Ratio 1.8
[2020-06-29 06:22] LABS: Partial Thromboplastin Time 47.8 Seconds (21.0-31.0)
[2020-06-29 06:23] LABS: Hematocrit (blood only) 28.2 % (42-52); Hemoglobin 9.2 g/dL (14.0-18.0); Mean Corpuscular Hemoglobin 29.7 pg (25-34); RDW Coefficient of Variation 14.3 % (11.5-14.5); RDW Standard Deviation 46.9 fL (36.4-46.3); White Blood Count 14.21 K/uL (4.8-10.8)
[2020-06-29 06:32] LABS: Basophils # (auto) 0.06 K/uL (0-0.2); Basophils % (auto) 0.4 %; Immature Granulocytes # (auto) 0.08 K/uL (0.00-0.02); Immature Granulocytes % (auto) 0.6 %; Lymphocytes % (auto) 9.1 %; Monocytes # (auto) 0.99 K/uL (0.11-0.59); Neutrophils # (auto) 11.78 K/uL (1.4-6.5); Neutrophils % (auto) 82.9 %; Platelet Count 68 K/uL (130-400); Platelet Estimate Decreased (Normal)
[2020-06-29 06:38] LABS: Albumin Globulin Ratio 0.4 (0.9-2); Albumin Level 1.9 gm/dl (3.4-5.0); BUN Creatinine Ratio 27.1 (10-20); Bilirubin,Total 0.7 mg/dl (0.2-1); Est GFR (African American) 110.5; Est GFR (Non-African American) 95.3; Globulin 4.9 gm/dl (2.5-4.0); Magnesium 2.1 mg/dl (1.8-2.4); Potassium 3.2 mmol/L (3.5-5.1); Total Protein 6.8 gm/dl (6.4-8.2)
[2020-06-29] MEDS: ALBUT/IPRATROP 3MG/0.5MG NEB 3 ML VIAL NEB SCH ×3 (07:01→19:20)
--- NOTE | 2020-06-29 07:04 | XRay Report ---
XR chest 1V portable CLINICAL HISTORY: increased 02 requirement WORSENING HYPOXIA COMPARISON STUDY: 06/28/2020 FINDINGS: The cardiac and mediastinal contours remain stable. There is radiographic evidence of emphy sema. There is a left subclavian central venous catheter unchanged in position. There are persistent bilateral pleural effusions with associated basilar airspace opacities.[ IMPRESSION: 1. Pulmonary emphysema 2. Persistent bilateral pleural effusions with associated basilar opacities, atelectasis versus infec tious/inflammatory ACT 112: Negative or not required by law. Electronically signed by: Nura Chairez M.D. 06/29/2020 7:03 AM
[2020-06-29] MEDS ORDERED: RAPID SEQUENCE INDUCTION BAG ONE (07:55)
[2020-06-29] MEDS: LIDOCAINE 5% 1 PATCH TD SCH (08:36)
[2020-06-29] MEDS: FLUTICASONE/VILANTEROL 100/25MCG 14 PUFFS/INHALER INH SCH (08:37)
[2020-06-29] MEDS: UMECLIDINIUM BROMIDE 62.5MCG/BLISTER 7 PUFFS/INHALER INH SCH (08:37)
[2020-06-29] MEDS: SENNA 8.6 MG TAB PO SCH (08:39)
[2020-06-29] MEDS: guaiFENesin 600 MG TABCR PO SCH ×2 (08:39→20:07)
[2020-06-29] MEDS ORDERED: methylPREDNISolone 40 MG in SYRINGE 0 ML IV SCH (09:00)
[2020-06-29] MEDS ORDERED: FUROSEMIDE 40 MG in SYRINGE 0 ML IV SCH (09:00)
--- NOTE | 2020-06-29 09:18 | Hospitalist Progress Note ---
Date of Service June 29, 2020 Assessment & Plan (1) Pneumonia: Sukhjinder Lomeli is a 75-year-old male with past medical history significant for CAD, HTN, HLD, extensive smoking history and COPD, hemorrhoids admitted for severe sepsis with acute hypoxic respiratory failure, with initial complaint of RLE pain with findings consistent with critical limb ischemia. Now s/p right AKA Acute Hypoxemic Respiratory Failure - Multifactorial including pneumonia, COPD with significant tobacco use ( > 55 pack-year history), bilateral PE, and pulmonary edema/effusions. - Increasing O2 requirements; increased 15 L overnight to high flow (40L). Patient also used bipap x2 hours overnight last night. Persistent increased work of breathing and tachypnea but noted to have improved since compliance with high flow oxygen throughout the day today. - Encourage BiPap nightly and prn - Pulmonology consulted. Appreciate their recommendations. - See below for details. Bilateral PE - CTA chest 06/26/20: Bilateral segmental/subsegmental pulmonary embolus. No evidence for right-sided heart strain. Small bilateral pleural fusions. Consolidation within the right lung base likely represents a pneumonia. This could be secondary to aspiration. Nodular area of thickening within the right upper lobe pleura medially which could represent scarring versus a pleural lesion. [address] follow-up recommended to ensure stability. Mild mediastinal lymphadenopathy. This also bears watching future examinations. Emphysema. - LUE doppler 06/26 due to complaints of swelling -- no DVT seen in LUE - Started on Heparin drip 06/26; PTT 47.8 today - Monitor for bleeding as patient is also w/ thrombocytopenia - Patient with no complaints/concerns of bleeding; normal BM, no bleeding from gums, olmedo catheter in place w/o gross hematuria Pneumonia - Leukocytosis at 14.21; suspect slight increase in leukocytosis associated with steroid use - CXR 06/27/20: Right greater than left bibasilar consolidative opacities have mildly progressed suggestive of probable pneumonia. Small bilateral pleural effusions have also mildly increased in size. Emphysema. - Repeat CXR 06/28: Advanced emphysema. Right larger than left pleural effusions with bibasilar consolidation is similar to previous. There are increasing patchy opacities in the left midlung. - Repeat CXR 06/29: Pulmonary emphysema. Persistent bilateral pleural effusions with associated basilar opacities, atelectasis versus infectious/inflammatory - Previously completed 10 day course of IV cefepime on 06/26/20 for pneumonia. Due to persistent pneumonia and hypoxemic respiratory failure, restarted cefepime on 06/27/20 - Treated with vancomycin for 8 days. Discontinue vancomycin 06/28/20. - Sputum cultures and procalcitonin ordered 06/27/20 - Sputum culture with many yeast and many gram positive cocci. Will await final report. - Procal 0.40 - Continue IS and flutter valve use COPD/Emphysema with Cor Pulmonale - Significant past smoking history: >55 pack-years (1+ ppd x >55 years) - Duoneb treatment scheduled q6h while awake and prn - Previously on prednisone 5mg BID but had been stopped. Restarted steroids 06/28 - Per pulmonology recommendations, starting tomorrow will give prednisone 40 mg for 3 days followed by 20 mg for 3 days and then go to home dose of 5mg po daily. - Increased Mucinex to 1,200mg BID on 06/28 - Continue Breo and Zyrtec daily Pulmonary Edema and Effusions - Small b/l pleural effusions noted on both CTA 06/26 and CXR 06/27 - Repeat CXR 06/28 w/ R > L pleural effusions with bibasilar consolidation similar to previous - Received 40mg IV lasix 06/27 with some improvement - Continue daily IV lasix. If patient is not negative balance, can give additional dose of IV lasix - Monitor I/Os. - TTE 06/28 LV sys fxn normal (55-60%), right ventricle is mild to moderately dilated, right ventricular systolic function is mildly reduced, right ventricular systolic pressure is elevated at 40-50mmHg. - Compared to last prior echo, there has been improvement int he overall left ventricular function. Some improvement in RV function. Estimated pulmonary pressures appear higher. CAD with Chronic Systolic CHF - Hx of IL approximately 4 years ago (attempted PCI, vessel ruptured, PCI aborted) - TTE 06/12/20 demonstrated moderate RV dilation w/ mild to moderate reduction of systolic function. LV sys fxn mild to moderately reduced as well. EF 40-45%. Grade I diastolic dysfunction. Mild mitral and tricuspid regurgitation - Repeat TTE as noted above -- improvement in LV sys function - Holding home isosorbide mononitrate, ranolazine, metoprolol, lisinopril, and ASA Protein Malnutrition - Albumin 1.9 today - Nutrition consulted. Appreciate their assistance and recommendations. Electrolyte abnormalities - Hypokalemia and Hypomagnesium - Acute hypokalemia and hypomagnesemia 06/27/20 repleted with 40 mEq potassium and 2g magnesium, normalized on 06/28 - Recurrent hypokalemia today (3.2). Suspect associated to daily IV lasix use. - Will start potassium 40 mEq po daily - Will continue to monitor BMP qAM Hyponatremia - Possibly associated with pulmonary processes as noted above or with fluid overload - Patient being diuresed with lasix for the pulmonary edema - Will continue to monitor with BMP qAM Thrombocytopenia - No overt signs or symptoms of bleeding - Platelet count had been improving and was 100 yesterday; however, decreased again today and is 68 (alvarado 64 on 06/24) - Will continue to monitor Critical RLE ischemia - 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 Required brief ICU stay. Please see [facility] notes for further details. - Previous palliative consult but palliative signed off as patient doing much better; may consider re-consult if current conditions, including pulmonary processes as noted above, do not improve - Continue Tylenol 1000mg q8h prn, ibuprofen 600mg q6h prn, lidocaine patch on anterior chest wall, and morphine 4mg prn for breakthrough pain - Tolerating pain regimen fairly well Episode of Atrial Fibrillation - resolved - Noted to be in atrial fibrillation with RVR on 06/12, resolved s/p metoprolol - Continues to remain in NSR since that time - Cardiology consulted, appreciate insight and recommendations: - While CHADSVASC is 3 (and therefore, by scoring, anticoagulation is clinically indicated), this single episode of AFib occurred during extenuating circumstances (ischemia, AHRF, hypovolemia) - Given persistence of NSR, will hold from starting anticoagulation at this time - Continue to monitor on tele HLD: - Holding home atorvastatin HTN: - Holding home isosorbide mononitrate, metoprolol, HCTZ, lisinopril CODE STATUS: DNR/DNI FEN/GI: Heart healthy, low-sodium diet DVT prophylaxis: On Heparin due to PEs Dispo: PCU Admission and Anticipated Discharge Date Admission Date: June 11, 2020 Supervising Physician Co-Signing Physician Notes Patient seen and examined with PGY-1 Dr. Christine. Agree with history, exam findings, assessment and plan of care as outlined. In brief, Mr. Loemli is a 75-year-old male with past medical history significant for CAD, HTN, HLD, extensive smoking history and COPD, hemorrhoids admitted for severe sepsis with acute hypoxic respiratory failure, with initial complaint of RLE pain with findings consistent with critical limb ischemia. Now s/p right AKA. Overnight, did use BiPAP for a short period of time and received additional 40mg IV Lasix. Transitioned to 40L high flow NC. Today, feels a bit better. Has been able to increase his oral intakemostly fluids with Boost and water. Denies pain or drainage from surgical incision. Denies bleeding. Vital signs and nursing notes reviewed. Ill appearing. He is using accessory muscles and belly breathing. Tachypnea. Diminished breath sounds through out, with crackles and ronchi in the bases. Right leg amputation site looks goodsome ecchymosis, but minimally tender, non- erythematous. Erik are clean. No drainage. 1. Hypoxic respiratory failure. Multifactorial. Increasing O2 requirements. Alternating between high flow and BiPAP. See below of details of each component. Appreciate pulmonology recommendations. 2. Pneumonia. ?aspiration vs hospital acquired. Suspect this is more likely to be aspiration related given prolonged illness. Procal neg with increasing leukocytosis. Continue with cefepime. Vanc stopped. 3. Pulmonary edema and effusions in the setting of known HFrEF and hx of IL. EF diminished recent Echo with EF 55-60, but prior Echo with lower EF. Likely also some third spacing given low albumin. Repeat CXR today with. Continue with daily IV Lasix 40mg. Monitor I/Os. 4. Bilateral PE. Seen on CTA Chest 06/26. Clots in the left upper log segmental septal subsegmental pulmonary artery, right upper and right middle lobe segmental/subsegmental pulmonary arteries. No right heart strain. Continue heparin gtt. Will need to be mindful of bleeding as he has thrombocytopenia. 5. COPD. > 55 pack year history. Lower suspicion for COPD exacerbation. Imaging suggestive of severe lung disease. Previously on chronic pred 5mg BID, but this was stopped earlier this hospital stay. Started solumedrolde-escalated to prednisone 40mg with plans to decrease to 20mg on 07/04. Continue flutter valve. Continue with Mucinex scheduled and scheduled MDI, PRN nebs. Continue home Breo. Continue Incruse here. 6. CAD with HFrEF. Prior echo this admissions showed EF 40-45% with grade 1 diastolic dysfunction. Mild mitral and tricuspid regurg. Holding his home metoprolol, isosorbide mononitrate, ranolazine, Lisinopril and aspirin. 7. Thrombocytopenia. Possibly consumptive, but low suspicion for DIC. Has been fluctuating. 8. Hyponatremia. Stable. Possibly secondary to pulmonary process happening vs fluid overloaded. 9. Electrolyte abnormalities. Repleted Mg and K. Daily PO KCl with his daily Lasix. 10. Protein-calorie malnutrition. Severe. Pre-albumin undetectable. Appreciate nutrition recommendations. 11. HTN. Blood pressures have been intermittently elevated. Holding meds as above. In addition, holding home HCTZ. 12. Critical limb ischemia s/p AKA on the right on 06/16/20. Stump looks good. No signs of infection or breakdown at the incision site. 13. Cardiac arrest immediately prior to procedure in the OR. Resuscitation done in the operating room. Has some chest pain from compressions. Using lidocaine patch with good relief. 14. Afib. Resolved. Has continued to be in sinus. Off metoprolol. Continue tele. Dispo: Pending clinically improvement Subjective Overnight: Patient with increased oxygen requirement. Received high flow oxygen at 40L; RN also noted that patient tolerated BiPap x2 hours overnight. Additionally, patient received an additional IV Lasix dose 40mg around 0330 this AM. Patient seen and evaluated at bedside this morning. He reports that he is feeling slightly better and is more comfortable with the high flow oxygen in place. However, still with + SOB. Patient does have a bottle of ensure protein drink open on the tray table in front of him; reports that he has been able to drink more but is still not eating too much. Patient reports persistent chest pain that is exacerbated with deep breathing and movement; location of chest pain is consistent with location of CPR compressions. Review of Systems Constitutional: no fever Respiratory: + dyspnea Cardiovascular: + chest pain Physical Exam Physical Exam: GENERAL: Ill appearing. Compared to previous examinations, patient appears clinically better today. EYES: EOMI. HENT: Moist mucous membranes. High flow oxygen via NC. RESPIRATORY: Accessory abdominal muscle use and intercostal retractions but noted to be slightly improved from prior examinations. Tachypneic. Crackles and rhonci in bilateral bases, increased after movement. CARDIOVASCULAR: Regular rhythm and rate. No murmurs. ABDOMEN: Soft. Normal bowel sounds. No tenderness to palpation. Upper extremity: Left arm swelling noted but no tenderness to palpation. Lower extremity: Trace edema to LLE from ankle to knee. Right leg amputation site examined. Erik in place w/ minimal erythema noted on lateral anterior aspect. No warmth. No discharge. No tenderness to palpation. PSYCH: A/O x3. Euthymic affect. Results & Data Results & Data ([facility]) Vital Signs (Past 12 Hours) Vital Signs Temp Pulse Pulse Pulse Resp BP Pulse Ox 06/29/20 07:38 82 06/29/20 07:19 36.6 C 80 22 132/88 92 06/29/20 07:02 71 18 91 06/29/20 06:16 90 16 90 06/29/20 04:03 85 16 90 06/29/20 03:52 82 82 18 95 06/29/20 03:51 82 18 95 06/29/20 03:30 36.5 C 85 28 H 130/87 97 06/29/20 01:07 90 20 94 06/29/20 00:00 36.4 C L 87 23 133/83 90 06/28/20 22:51 81 Resident Activity Tracking Resident Involvement: Resident Care Provided Care Provided: Adult Hospital Medicine (1) Pneumonia Laterality: right Lung location: lower lobe of lung Pneumonia type: due to unspecified organism Qualified Code(s): J18.9 - Pneumonia, unspecified organism
[2020-06-29] MEDS: CETIRIZINE HCL 10 MG TABLET PO SCH (10:08)
[2020-06-29] MEDS: POTASSIUM CHLORIDE 20 MEQ/15 ML UDC PO SCH (10:08)
--- NOTE | 2020-06-29 12:13 | Pulmonology Progress Note ---
Date of Service June 29, 2020 Assessment & Plan (1) COPD (chronic obstructive pulmonary disease): COPD type: unspecified COPD Qualified Code(s): J44.9 - Chronic obstructive pulmonary disease, unspecified (2) Ischemia of right lower extremity: (3) Pneumonia: Laterality: right Lung location: lower lobe of lung Pneumonia type: due to unspecified organism Qualified Code(s): J18.9 - Pneumonia, unspecified organism (4) Sepsis: Sepsis acute organ dysfunction status: without acute organ dysfunction Sepsis type: sepsis due to unspecified organism Qualified Code(s): A41.9 - Sepsis, unspecified organism (5) Cardiac arrest: Impression: 75-year-old male admitted with ischemic lower extremity. He presented with pneumonia and hypoxemic respiratory failure in the setting of obstructive lung disease. He was taken to the OR today for [id number] amputation and apparently post induction developed cardiac arrest and required brief CPR. He was extubated 06/16/2020. Patient got hypoxic on the floor on 06/26/2020 for which CTA was done and it showed PE. Pulmonary were reconsulted for the same CTA to 06/26/20 personally reviewed: Bilateral pleural effusions appreciated more on the right side, right lower lobe consolidative process appreciated with atelectasis, severe centrilobular emphysema. Bilateral subsegmental and segm ental PE, no evidence of right heart strain. --Acute hypoxic respiratory failure Multifactorial Likely secondary to acute PE on top of severe COPD with emphysema Patient's systolic CHF also playing a role Right lower lobe pneumonia. 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 Continue with incentive spirometry and flutter valve with mucolytic. Recommend continue with diuretics to keep the patient negative balance. If the patient is not negative balance give extra dose of Lasix. Continue with antibiotics. Starting tomorrow give prednisone 40 mg for 3 days followed by 20 mg for 3 days and go to his home dose. Please note the above document was generated using voice recognition software. It may contain grammatical, syntax or spelling errors.Any formal questions or concerns about the content, text or information contained within the body of this dictation should be directly addressed to the provider for clarification. Admission and Anticipated Discharge Date Admission Date: June 11, 2020 Subjective Patient seen and examined at bedside. No acute distress. Overnight patient did have an episode of tachypnea. At the time of examination though patient was saturating 94% on 70% high flow. I went down to 50%. Maintaining O2 saturation between 88-92%. Patient states he is feeling better. Denies any chest pain, no headache, no nausea, no vomiting. Review of Systems Review of Systems: All systems reviewed & are unremarkable except as noted in Subjective Physical Exam Physical Exam: Constitutional: No acute distress HEENT: EOMI, PERRLA Respiratory system: Decreased air entry bilaterally, positive crackles bilateral lower lobes, no wheeze, no rhonchi CVS: S1-S2 positive, no murmurs or gallops Abdomen: Soft, nontender, nondistended, positive bowel sounds x4 Extremities: +2 pulses bilaterally radialis/left dorsalis pedis, no cyanosis, no edema, right AKA Neuro: Awake alert oriented x3 Psych: Normal mood and affect G/U: No Godoy Skin: no rashes, warm and dry Lymphatic: no cervical or axillary lymphadenopathy Results & Data Results & Data ([facility]) Vital Signs (Past 12 Hours) Vital Signs Temp Pulse Pulse Pulse Resp BP Pulse Ox 06/29/20 11:46 36.9 C 83 25 H 112/72 89 L 06/29/20 11:19 83 16 89 L 06/29/20 07:38 82 06/29/20 07:19 36.6 C 80 22 132/88 92 06/29/20 07:02 71 18 91 06/29/20 06:16 90 16 90 06/29/20 04:03 85 16 90 06/29/20 03:52 82 82 18 95 06/29/20 03:51 82 18 95 06/29/20 03:30 36.5 C 85 28 H 130/87 97 06/29/20 01:07 90 20 94 06/29/20 05:22 06/29/20 05:22 PG Care Time/CCT Total # of Minutes Spent Total Time Spent with Patient: Total time spent is greater than 50% in coordination of care (as documented) at patient's floor/unit and/or counseling patient: Coding Level of Care Code 89982 Subseq Hosp Care Lvl 3 Diagnoses COPD (chronic obstructive pulmonary disease) J44.9 COPD type: unspecified COPD Ischemia of right lower extremity I99.8 Pneumonia J18.9 Laterality: right Lung location: lower lobe of lung Pneumonia type: due to unspecified organism Sepsis A41.9 Sepsis acute organ dysfunction status: without acute organ dysfunction Sepsis type: sepsis due to unspecified organism Cardiac arrest I46.9
[2020-06-29] MEDS: GABAPENTIN 100 MG CAP PO SCH (20:07)
[2020-06-30] MEDS: MoRPHine SULFATE 4 MG/ML 1 ML CARP\\VIAL IV PRN (02:25)
[2020-06-30] MEDS: HEPARIN SODIUM/DEXTROSE 25,000 UNITS/500 ML BAG IV SCH (04:14)
[2020-06-30] MEDS: CEFEPIME 2,000 MG in SYRINGE 0 ML IV SCH ×3 (04:14→20:45)
[2020-06-30 06:23] LABS: Partial Thromboplastin Ratio 1.7; Partial Thromboplastin Time 44.4 Seconds (21.0-31.0)
[2020-06-30 06:41] LABS: Albumin Level 1.7 gm/dl (3.4-5.0); BUN Creatinine Ratio 34.7 (10-20); Calcium 7.9 mg/dl (8.5-10.1); Creatinine Clr Calc Pharmacy 77.3 ml/min; Est GFR (African American) 116.4; Est GFR (Non-African American) 100.4; Hematocrit (blood only) 24.8 % (42-52); Hemoglobin 8.2 g/dL (14.0-18.0); Mean Corpuscular Hemoglobin 29.9 pg (25-34); Mean Corpuscular Hgb Conc 33.1 g/dL (32-36); Mean Corpuscular Volume 90.5 fL (80-100); Platelet Count 78 K/uL (130-400); Potassium 3.6 mmol/L (3.5-5.1); RDW Coefficient of Variation 14.3 % (11.5-14.5); RDW Standard Deviation 46.8 fL (36.4-46.3); Red Blood Count 2.74 M/uL (4.7-6.1); White Blood Count 13.19 K/uL (4.8-10.8)
[2020-06-30 06:42] LABS: Basophils # (auto) 0.04 K/uL (0-0.2); Basophils % (auto) 0.3 %; Immature Granulocytes # (auto) 0.07 K/uL (0.00-0.02); Immature Granulocytes % (auto) 0.5 %; Lymphocytes # (auto) 1.53 K/uL (1.2-3.4); Lymphocytes % (auto) 11.6 %; Monocytes # (auto) 1.11 K/uL (0.11-0.59); Monocytes % (auto) 8.4 %; Neutrophils # (auto) 10.44 K/uL (1.4-6.5); Neutrophils % (auto) 79.2 %; Platelet Estimate Decreased (Normal); Toxic Vacuolation 1+
[2020-06-30 06:44] LABS: Albumin Globulin Ratio 0.4 (0.9-2); Bilirubin,Total 0.5 mg/dl (0.2-1); Globulin 4.5 gm/dl (2.5-4.0); Total Protein 6.2 gm/dl (6.4-8.2)
[2020-06-30] MEDS: ALBUT/IPRATROP 3MG/0.5MG NEB 3 ML VIAL NEB SCH ×3 (07:04→19:14)
[2020-06-30] MEDS: FLUTICASONE/VILANTEROL 100/25MCG 14 PUFFS/INHALER INH SCH (08:02)
[2020-06-30] MEDS: UMECLIDINIUM BROMIDE 62.5MCG/BLISTER 7 PUFFS/INHALER INH SCH (08:03)
[2020-06-30] MEDS: FUROSEMIDE 40 MG in SYRINGE 0 ML IV SCH (08:03)
[2020-06-30] MEDS: POTASSIUM CHLORIDE 20 MEQ/15 ML UDC PO SCH (08:03)
[2020-06-30] MEDS: guaiFENesin 600 MG TABCR PO SCH ×2 (08:04→20:40)
[2020-06-30] MEDS: SENNA 8.6 MG TAB PO SCH (08:04)
[2020-06-30] MEDS: CETIRIZINE HCL 10 MG TABLET PO SCH (08:05)
[2020-06-30] MEDS: LIDOCAINE 5% 1 PATCH TD SCH (08:10)
[2020-06-30] MEDS: predniSONE 20 MG TAB PO SCH (11:47)
[2020-06-30 13:02] LABS: Partial Thromboplastin Ratio 1.6
--- NOTE | 2020-06-30 14:08 | Hospitalist Progress Note ---
Date of Service June 30, 2020 Assessment & Plan (1) Pneumonia: Sukhjinder Lomeli is a 75-year-old male with past medical history significant for CAD, HTN, HLD, extensive smoking history and COPD, hemorrhoids admitted for severe sepsis with acute hypoxic respiratory failure, with initial complaint of RLE pain with findings consistent with critical limb ischemia. Now s/p right AKA Acute Hypoxemic Respiratory Failure - Multifactorial including pneumonia, COPD with significant tobacco use ( > 55 pack-year history), bilateral PE, and pulmonary edema/effusions. - Persistent increased work of breathing and tachypnea. Still with high flow oxygen, which patient has been compliant with. - Encourage BiPap nightly and prn - Pulmonology consulted. Appreciate their recommendations. - See below for details. Bilateral PE - CTA chest 06/26/20: Bilateral segmental/subsegmental pulmonary embolus. No evidence for right-sided heart strain. Small bilateral pleural fusions. Consolidation within the right lung base likely represents a pneumonia. This could be secondary to aspiration. Nodular area of thickening within the right upper lobe pleura medially which could represent scarring versus a pleural lesion. [address] follow-up recommended to ensure stability. Mild mediastinal lymphadenopathy. This also bears watching future examinations. Emphysema. - LUE doppler 06/26 due to complaints of swelling -- no DVT seen in LUE - Started on Heparin drip 06/26; PTT 44.4 today - Monitor for bleeding as patient is also w/ thrombocytopenia (platelet count = 78) - Patient with no complaints/concerns of bleeding; normal BM, no bleeding from gums, olmedo catheter in place w/o gross hematuria Pneumonia - Leukocytosis at 13.19; continue to monitor w/ CBC qAM - CXR 06/27/20: Right greater than left bibasilar consolidative opacities have mildly progressed suggestive of probable pneumonia. Small bilateral pleural effusions have also mildly increased in size. Emphysema. - Repeat CXR 06/28: Advanced emphysema. Right larger than left pleural effusions with bibasilar consolidation is similar to previous. There are increasing patchy opacities in the left midlung. - Repeat CXR 06/29: Pulmonary emphysema. Persistent bilateral pleural effusions with associated basilar opacities, atelectasis versus infectious/inflammatory - Plan to repeat CXR tomorrow AM to monitor progress of therapies - Previously completed 10 day course of IV cefepime on 06/26/20 for pneumonia. Due to persistent pneumonia and hypoxemic respiratory failure, restarted cefepime on 06/27/20 - Plan to d/c cefepime tomorrow as patient will have completed 14 day treatment for pneumonia w/ cefepime - Treated with vancomycin for 8 days. Discontinue vancomycin 06/28/20. MRSA nares culture pending. - Sputum cultures and procalcitonin ordered 06/27/20 - Sputum culture with many yeast and many gram positive cocci. Will await final report. - Procal 0.40 - Continue IS and flutter valve use COPD/Emphysema with Cor Pulmonale - Significant past smoking history: >55 pack-years (1+ ppd x >55 years) - Duoneb treatment scheduled q6h while awake and prn - Previously on prednisone 5mg BID but had been stopped. Restarted steroids 06/28 - Per pulmonology recommendations, starting will give prednisone 40 mg for 3 days followed by 20 mg for 3 days and then go to home dose of 5mg po daily. - Increased Mucinex to 1,200mg BID on 06/28 - Continue Breo and Zyrtec daily Pulmonary Edema and Effusions - Small b/l pleural effusions noted on both CTA 06/26 and CXR 06/27 - Repeat CXR 06/28 w/ R > L pleural effusions with bibasilar consolidation similar to previous - Received 40mg IV lasix 06/27 with some improvement --> Continue daily IV lasix. If patient is not negative balance, can give additional dose of IV lasix - Additional 40mg IV lasix given today (06/30) - Monitor I/Os. - TTE 06/28 LV sys fxn normal (55-60%), right ventricle is mild to moderately dilated, right ventricular systolic function is mildly reduced, right ventricular systolic pressure is elevated at 40-50mmHg. - Compared to last prior echo, there has been improvement int he overall left ventricular function. Some improvement in RV function. Estimated pulmonary pressures appear higher. CAD with Chronic Systolic CHF - Hx of HI approximately 4 years ago (attempted PCI, vessel ruptured, PCI aborted) - TTE 06/12/20 demonstrated moderate RV dilation w/ mild to moderate reduction of systolic function. LV sys fxn mild to moderately reduced as well. EF 40-45%. Grade I diastolic dysfunction. Mild mitral and tricuspid regurgitation - Repeat TTE as noted above -- improvement in LV sys function - Holding home isosorbide mononitrate, ranolazine, metoprolol, lisinopril, and ASA Protein Malnutrition - Albumin 1.9 today - Nutrition consulted. Appreciate their assistance and recommendations. Electrolyte abnormalities - Hypokalemia and Hypomagnesium - Acute hypokalemia and hypomagnesemia 06/27/20 repleted with 40 mEq potassium and 2g magnesium, normalized on 06/28 - Recurrent hypokalemia 06/29 (3.2). Suspect associated to daily IV lasix use. - Will start potassium 40 mEq po daily (06/29/20) - Will continue to monitor BMP qAM Hyponatremia - Possibly associated with pulmonary processes as noted above or with fluid overload - Patient being diuresed with lasix for the pulmonary edema - Will continue to monitor with BMP qAM Thrombocytopenia - No overt signs or symptoms of bleeding - Transfuse acutely if platelet < 40 - Will continue to monitor Critical RLE ischemia - 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 Required brief ICU stay. Please see rental agent notes for further details. - Previous palliative consult but palliative signed off as patient doing much better; may consider re-consult if current conditions, including pulmonary processes as noted above, do not improve - Continue Tylenol 1000mg q8h prn, ibuprofen 600mg q6h prn, lidocaine patch on anterior chest wall, and morphine 4mg prn for breakthrough pain - Tolerating pain regimen fairly well Episode of Atrial Fibrillation - resolved - Noted to be in atrial fibrillation with RVR on 06/12, resolved s/p metoprolol - Continues to remain in NSR since that time - Cardiology consulted, appreciate insight and recommendations: - While CHADSVASC is 3 (and therefore, by scoring, anticoagulation is clinically indicated), this single episode of AFib occurred during extenuating circumstances (ischemia, AHRF, hypovolemia) - Given persistence of NSR, will hold from starting anticoagulation at this time - Continue to monitor on tele HLD: - Holding home atorvastatin HTN: - Holding home isosorbide mononitrate, metoprolol, HCTZ, lisinopril CODE STATUS: DNR/DNI FEN/GI: Heart healthy, low-sodium diet DVT prophylaxis: On Heparin due to PEs Dispo: PCU Admission and Anticipated Discharge Date Admission Date: June 11, 2020 Supervising Physician Co-Signing Physician Notes Attending attestation Pt seen and examined in concert with Dr. Christine. In agreement with the docu mented findings as noted in the resident documentation with any exceptions or additions as noted here. 75 y/o male h/o CAD, HTN, HLD, extensive smoking Hx, COPD admitted w/ severe sepsis with AHRF following critical limb ischemia s/p AKA Feeling more comfortable with 35L high flow O2, but still having issues speaking more than a few words. Decreased appetite and POI persists, though working on s upplementation more. On examination, S1/S2 consisnent tachycardia. scattered rhonchi throughout. Abd NT/ND BS+ve. Trace edema of the LLE Acute hypoxic respiratory failure - pulmonology consultation - concerning for persistently high O2 requirements, tachypnea and resistance to BIPAP Bilateral PE - continue heparin gtt Pneumonia, likely aspiration - day 13 of cefepime in total. Pulmonary edema & effusions w/ HFrEF, recent cardiac arrest - EF 55-60%. Continue IV lasix 40mg qAM, add another 40mg IV tonight and monitor output and Cr, as likely reaching point of dehydration COPD - continue prednisone 40mg with next taper to 20mg on 3/2 or per pulmonology recommendation Else see resident documentation as noted. Subjective Patient seen and evaluated at bedside this morning. States that he is feeling "slightly better." Still with + SOB that is exacerbated with talking or moving in bed; continues to use high flow oxygen at 30-40 L. Also complains of persistent midsternal CP in location of prior compressions during CPR; improved with lidocaine patch. Patient notes decreased appetite but states that he is trying to drink more protein shakes. Review of Systems Review of Systems: See HPI Physical Exam Physical Exam: GENERAL: Ill appearing. Compared to previous examinations, patient appears clinically better today. EYES: EOMI. HENT: Moist mucous membranes. High flow oxygen via NC. RESPIRATORY: Accessory abdominal muscle use. Tachypneic. Crackles and rhonci in bilateral bases. CARDIOVASCULAR: Tachycardic. Regular rhythm. No murmurs. ABDOMEN: Soft. Normal bowel sounds. No tenderness to palpation. Upper extremity: Left arm swelling noted but no tenderness to palpation. Lower extremity: Trace edema to LLE from ankle to knee. PSYCH: A/O x3. Euthymic affect. Results & Data Results & Data ([facility]) Vital Signs (Past 12 Hours) Vital Signs Temp Pulse Pulse Resp BP Pulse Ox 06/30/20 13:41 101 H 20 89 L 06/30/20 11:56 36.6 C 101 H 23 135/76 93 06/30/20 11:48 101 H 18 91 06/30/20 07:55 36.7 C 98 H 22 133/73 91 06/30/20 07:05 87 16 91 06/30/20 03:58 36.9 C 69 18 100/61 94 06/30/20 03:10 76 16 91 Resident Activity Tracking Resident Involvement: Resident Care Provided Care Provided: Adult Hospital Medicine (1) Pneumonia Laterality: right Lung location: lower lobe of lung Pneumonia type: due to unspecified organism Qualified Code(s): J18.9 - Pneumonia, unspecified organism
--- NOTE | 2020-06-30 15:07 | Pulmonology Progress Note ---
Date of Service June 30, 2020 Assessment & Plan (1) COPD (chronic obstructive pulmonary disease): COPD type: unspecified COPD Qualified Code(s): J44.9 - Chronic obstructive pulmonary disease, unspecified (2) Ischemia of right lower extremity: (3) Pneumonia: Laterality: right Lung location: lower lobe of lung Pneumonia type: due to unspecified organism Qualified Code(s): J18.9 - Pneumonia, unspecified organism (4) Sepsis: Sepsis acute organ dysfunction status: without acute organ dysfunction Sepsis type: sepsis due to unspecified organism Qualified Code(s): A41.9 - Sepsis, unspecified organism (5) Cardiac arrest: Impression: 75-year-old male admitted with ischemic lower extremity. He presented with pneumonia and hypoxemic respiratory failure in the setting of obstructive lung disease. He was taken to the OR today for [id number] amputation and apparently post induction developed cardiac arrest and required brief CPR. He was extubated 06/16/2020. Patient got hypoxic on the floor on 06/26/2020 for which CTA was done and it showed PE. Pulmonary were reconsulted for the same CTA to 06/26/20 personally reviewed: Bilateral pleural effusions appreciated more on the right side, right lower lobe consolidative process appreciated with atelectasis, severe centrilobular emphysema. Bilateral subsegmental and segm ental PE, no evidence of right heart strain. --Acute hypoxic respiratory failure Multifactorial Likely secondary to acute PE on top of severe COPD with emphysema Patient's systolic CHF also playing a role Right lower lobe pneumonia. 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 He is diuresing well he is -4 L. Would continue with the same diuresis. Continue with oxygen supplementation to keep oxygen saturation between 88-92% BiPAP nightly and as needed shortness of breath. Continue with incentive spirometry and flutter valve with mucolytic. Recommend continue with diuretics to keep the patient negative balance. If the patient is not negative balance give extra dose of Lasix. Continue with antibiotics. Please note the above document was generated using voice recognition software. It may contain grammatical, syntax or spelling errors.Any formal questions or concerns about the content, text or information contained within the body of this dictation should be directly addressed to the provider for clarification. Admission and Anticipated Discharge Date Admission Date: June 11, 2020 Subjective Patient seen and examined at bedside. No acute distress, no adverse events overnight. Patient states that his breathing is little bit improved. Denies any chest pain. Is using incentive spirometer as well as flutter valve. Denies any hemoptysis. No headache, no dizziness. Patient had questions regarding the DNR/DNI status. All questions inquiries of the patient were answered in depth. He understands and wants to continue with the current CODE STATUS. Review of Systems Review of Systems: All systems reviewed & are unremarkable except as noted in Subjective Physical Exam Physical Exam: Constitutional: No acute distress HEENT: EOMI, PERRLA Respiratory system: Decreased air entry bilaterally, positive crackles bilateral lower lobes, no wheeze, no rhonchi CVS: S1-S2 positive, no murmurs or gallops Abdomen: Soft, nontender, nondistended, positive bowel sounds x4 Extremities: +2 pulses bilaterally radialis/left dorsalis pedis, no cyanosis, no edema, right AKA Neuro: Awake alert oriented x3 Psych: Normal mood and affect G/U: No [place] Skin: no rashes, warm and dry Lymphatic: no cervical or axillary lymphadenopathy Results & Data Results & Data ([facility]) Vital Signs (Past 12 Hours) Vital Signs Temp Pulse Pulse Resp BP Pulse Ox 06/30/20 13:41 101 H 20 89 L 06/30/20 11:56 36.6 C 101 H 23 135/76 93 06/30/20 11:48 101 H 18 91 06/30/20 07:55 36.7 C 98 H 22 133/73 91 06/30/20 07:05 87 16 91 06/30/20 03:58 36.9 C 69 18 100/61 94 06/30/20 03:10 76 16 91 06/30/20 05:58 06/30/20 05:58 PG Care Time/CCT Total # of Minutes Spent Total Time Spent with Patient: Total time spent is greater than 50% in coordination of care (as documented) at patient's floor/unit and/or counseling patient: Coding Level of Care Code 65274 Subseq Hosp Care Lvl 3 Diagnoses COPD (chronic obstructive pulmonary disease) J44.9 COPD type: unspecified COPD Ischemia of right lower extremity I99.8 Pneumonia J18.9 Laterality: right Lung location: lower lobe of lung Pneumonia type: due to unspecified organism Sepsis A41.9 Sepsis acute organ dysfunction status: without acute organ dysfunction Sepsis type: sepsis due to unspecified organism Cardiac arrest I46.9
[2020-06-30] MEDS ORDERED: FUROSEMIDE 40 MG in SYRINGE 0 ML IV ONE (16:00)
[2020-06-30] MEDS ORDERED: FUROSEMIDE 20 MG in SYRINGE 0 ML IV ONE (16:00)
[2020-06-30] MEDS: GABAPENTIN 100 MG CAP PO SCH (20:40)
[2020-06-30] MEDS: IBUPROFEN 600 MG TAB PO PRN (20:51)
[2020-06-30 21:28] LABS: Partial Thromboplastin Ratio 1.8
[2020-06-30 21:58] LABS: Partial Thromboplastin Time 46.9 Seconds (21.0-31.0)
[2020-07-01] MEDS: CEFEPIME 2,000 MG in SYRINGE 0 ML IV SCH ×2 (03:47→13:18)
[2020-07-01] MEDS: IBUPROFEN 600 MG TAB PO PRN ×2 (04:20→16:37)
[2020-07-01] MEDS: LEVALBUTEROL HCL 0.63 MG/3 ML NEB NEB PRN (04:57)
[2020-07-01 06:49] LABS: Partial Thromboplastin Ratio 2.1
[2020-07-01 06:50] LABS: Partial Thromboplastin Time 56.2 Seconds (21.0-31.0)
[2020-07-01 07:05] LABS: Basophils # (auto) 0.07 K/uL (0-0.2); Basophils % (auto) 0.5 %; Eosinophils # (auto) 0.15 K/uL (0-0.5); Eosinophils % (auto) 1.2 %; Hematocrit (blood only) 25.3 % (42-52); Hemoglobin 8.4 g/dL (14.0-18.0); Immature Granulocytes # (auto) 0.12 K/uL (0.00-0.02); Immature Granulocytes % (auto) 0.9 %; Lymphocytes # (auto) 1.92 K/uL (1.2-3.4); Lymphocytes % (auto) 14.9 %; Mean Corpuscular Hgb Conc 33.2 g/dL (32-36); Mean Corpuscular Volume 90.4 fL (80-100); Monocytes # (auto) 1.17 K/uL (0.11-0.59); Monocytes % (auto) 9.1 %; Neutrophils # (auto) 9.42 K/uL (1.4-6.5); Neutrophils % (auto) 73.4 %; Platelet Count 93 K/uL (130-400); Platelet Estimate Decreased (Normal); RDW Coefficient of Variation 14.1 % (11.5-14.5); RDW Standard Deviation 46.7 fL (36.4-46.3); White Blood Count 12.85 K/uL (4.8-10.8)
[2020-07-01 07:09] LABS: BUN Creatinine Ratio 37.2 (10-20); Calcium 8.2 mg/dl (8.5-10.1); Creatinine Clr Calc Pharmacy 68.3 ml/min; Est GFR (African American) 111.9; Est GFR (Non-African American) 96.5; Potassium 2.7 mmol/L (3.5-5.1)
[2020-07-01] MEDS: ALBUT/IPRATROP 3MG/0.5MG NEB 3 ML VIAL NEB SCH ×3 (07:12→19:15)
[2020-07-01] MEDS ORDERED: POTASSIUM CHLORIDE CRTAB 20 MEQ TABCR PO STA (07:23)
[2020-07-01] MEDS: UMECLIDINIUM BROMIDE 62.5MCG/BLISTER 7 PUFFS/INHALER INH SCH (07:56)
[2020-07-01] MEDS: predniSONE 20 MG TAB PO SCH (07:56)
[2020-07-01] MEDS: guaiFENesin 600 MG TABCR PO SCH ×2 (07:57→20:04)
[2020-07-01] MEDS: SENNA 8.6 MG TAB PO SCH (07:58)
[2020-07-01] MEDS: CETIRIZINE HCL 10 MG TABLET PO SCH (07:58)
[2020-07-01] MEDS: POTASSIUM CHLORIDE 20 MEQ/15 ML UDC PO SCH (07:59)
[2020-07-01] MEDS: LIDOCAINE 5% 1 PATCH TD SCH (07:59)
[2020-07-01] MEDS: FLUTICASONE/VILANTEROL 100/25MCG 14 PUFFS/INHALER INH SCH (08:00)
[2020-07-01] MEDS: FUROSEMIDE 40 MG in SYRINGE 0 ML IV SCH (08:02)
[2020-07-01] MEDS: HEPARIN SODIUM/DEXTROSE 25,000 UNITS/500 ML BAG IV SCH ×2 (08:19→20:32)
[2020-07-01 08:50] LABS: Magnesium 2.2 mg/dl (1.8-2.4)
--- NOTE | 2020-07-01 10:25 | Hospitalist Progress Note ---
Date of Service July 01, 2020 Assessment & Plan (1) Pneumonia: Sukhjinder Lomeli is a 75-year-old male with past medical history significant for CAD, HTN, HLD, extensive smoking history and COPD, hemorrhoids admitted for severe sepsis with acute hypoxic respiratory failure, with initial complaint of RLE pain with findings consistent with critical limb ischemia. Now s/p right AKA Acute Hypoxemic Respiratory Failure - Multifactorial including pneumonia, COPD with significant tobacco use ( > 55 pack-year history), bilateral PE, and pulmonary edema/effusions. - Persistent increased work of breathing and tachypnea. Still with high flow oxygen, which patient has been compliant with. - Encourage BiPap nightly and prn - Pulmonology consulted. Appreciate their recommendations. - See below for details. Bilateral PE - CTA chest 06/26/20: Bilateral segmental/subsegmental pulmonary embolus. No evidence for right-sided heart strain. Small bilateral pleural fusions. Consolidation within the right lung base likely represents a pneumonia. This could be secondary to aspiration. Nodular area of thickening within the right upper lobe pleura medially which could represent scarring versus a pleural lesion. [address] follow-up recommended to ensure stability. Mild mediastinal lymphadenopathy. This also bears watching future examinations. Emphysema. - LUE doppler 06/26 due to complaints of swelling -- no DVT seen in LUE - Started on Heparin drip 06/26; PTT 56.2 today - Monitor for bleeding as patient is also w/ thrombocytopenia (platelet count = 78) - Patient with no complaints/concerns of bleeding; normal BM, no bleeding from gums, olmedo catheter in place w/o gross hematuria Pneumonia - Leukocytosis at 12.85; continue to monitor w/ CBC qAM - CXR 06/27/20: Right greater than left bibasilar consolidative opacities have mildly progressed suggestive of probable pneumonia. Small bilateral pleural effusions have also mildly increased in size. Emphysema. - Repeat CXR 06/28: Advanced emphysema. Right larger than left pleural effusions with bibasilar consolidation is similar to previous. There are increasing patchy opacities in the left midlung. - Repeat CXR 06/29: Pulmonary emphysema. Persistent bilateral pleural effusions with associated basilar opacities, atelectasis versus infectious/inflammatory - Repeat CXR 07/01: Advanced emphysema. There are right larger left pleural effusions with bibasilar airspace opacities. This has improved as compared to 06/29/2020. Continued follow-up to resolution is recommended. - Plan to recheck next CXR in 2 days (07/03/20) - Previously completed 10 day course of IV cefepime on 06/26/20 for pneumonia. Due to persistent pneumonia and hypoxemic respiratory failure, restarted cefepime on 06/27/20 - Cefepime discontinued today as patient has now completed 14 day treatment for pneumonia w/ cefepime - Treated with vancomycin for 8 days. Discontinue vancomycin 06/28/20. MRSA nares culture pending. - Sputum cultures and procalcitonin ordered 06/27/20 - Sputum culture with many yeast and many gram positive cocci. Will await final report. - Procal 0.40 - Continue IS and flutter valve use COPD/Emphysema with Cor Pulmonale - Significant past smoking history: >55 pack-years (1+ ppd x >55 years) - Duoneb treatment scheduled q6h while awake and prn - Previously on prednisone 5mg BID but had been stopped. Restarted steroids 06/28 - Per pulmonology recommendations, starting will give prednisone 40 mg for 3 days followed by 20 mg for 3 days and then go to home dose of 5mg po daily. - Increased Mucinex to 1,200mg BID on 06/28 - Continue Breo and Zyrtec daily Pulmonary Edema and Effusions - Small b/l pleural effusions noted on both CTA 06/26 and CXR 06/27 - Repeat CXR 06/28 w/ R > L pleural effusions with bibasilar consolidation similar to previous - Repeat CXR 07/01 as noted above - Received 40mg IV lasix 06/27 with some improvement - Continue daily IV lasix. If patient is not negative balance, can give additional dose of IV lasix - Additional 40mg IV lasix given 06/30 - Net -3 L fluid balance over past 24 hours. - Monitor I/Os. - TTE 06/28 LV sys fxn normal (55-60%), right ventricle is mild to moderately dilated, right ventricular systolic function is mildly reduced, right ventricular systolic pressure is elevated at 40-50mmHg. - Compared to last prior echo, there has been improvement int he overall left ventricular function. Some improvement in RV function. Estimated pulmonary pressures appear higher. CAD with Chronic Systolic CHF - Hx of WI approximately 4 years ago (attempted PCI, vessel ruptured, PCI aborted) - TTE 06/12/20 demonstrated moderate RV dilation w/ mild to moderate reduction of systolic function. LV sys fxn mild to moderately reduced as well. EF 40-45%. Grade I diastolic dysfunction. Mild mitral and tricuspid regurgitation - Repeat TTE as noted above -- improvement in LV sys function - Holding home isosorbide mononitrate, ranolazine, metoprolol, lisinopril, and ASA Protein Malnutrition - Nutrition consulted. Appreciate their assistance and recommendations. Electrolyte abnormalities - Hypokalemia and Hypomagnesium - Acute hypokalemia and hypomagnesemia 06/27/20 repleted with 40 mEq potassium and 2g magnesium, normalized on 06/28 - Recurrent hypokalemia 06/29 (3.2). Suspect associated to daily IV lasix use. - Will start potassium 40 mEq po daily (06/29/20) - Potassium of 2.7 today. Additional 40 mEq K given in addition to daily 40 mEq dosage. - Will recheck BMP this afternoon and continue to monitor BMP qAM Hyponatremia - Possibly associated with pulmonary processes as noted above or with fluid overload - Patient being diuresed with lasix for the pulmonary edema - Will continue to monitor with BMP qAM Thrombocytopenia - No overt signs or symptoms of bleeding - Transfuse acutely if platelet < 40 - Will continue to monitor Critical RLE ischemia - 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 Required brief ICU stay. Please see sales designer notes for further details. - Previous palliative consult but palliative signed off as patient doing much better; may consider re-consult if current conditions, including pulmonary processes as noted above, do not improve - Continue Tylenol 1000mg q8h prn, ibuprofen 600mg q6h prn, lidocaine patch on anterior chest wall, and morphine 4mg prn for breakthrough pain - Tolerating pain regimen fairly well Episode of Atrial Fibrillation - resolved - Noted to be in atrial fibrillation with RVR on 06/12, resolved s/p metoprolol - Continues to remain in NSR since that time - Cardiology consulted, appreciate insight and recommendations: - While CHADSVASC is 3 (and therefore, by scoring, anticoagulation is clinically indicated), this single episode of AFib occurred during extenuating circumstances (ischemia, AHRF, hypovolemia) - Given persistence of NSR, will hold from starting anticoagulation at this time - Continue to monitor on tele HLD: - Holding home atorvastatin HTN: - Holding home isosorbide mononitrate, metoprolol, HCTZ, lisinopril CODE STATUS: DNR/DNI FEN/GI: Heart healthy, low-sodium diet DVT prophylaxis: On Heparin due to PEs Dispo: PCU Admission and Anticipated Discharge Date Admission Date: June 11, 2020 Supervising Physician Co-Signing Physician Notes Attending attestation Pt seen and examined in concert with Dr. Christine. In agreement with the documented findings as noted in the resident documentation with any exceptions or additions as noted here. 75 y/o male h/o CAD, HTN, HLD, extensive smoking Hx, COPD admitted w/ severe sepsis with AHRF following critical limb ischemia s/p AKA Improved comfort with respiration with decreased demand now on 30 LPM of 30% FIO2 high flow. Speaking more easily and with less accessory muscle use. Tolerating boost better today On examination, S1/S2 consistent tachycardia. scattered rhonchi throughout. Abd NT/ND BS+ve. Acute hypoxic respiratory failure - pulmonology consultation - continue high flow O2 with improved tachypnea resistance to BIPAP Bilateral PE - continue heparin gtt Pneumonia, likely aspiration - completed course of cefepime today x 14 days. Pulmonary edema & effusions w/ HFrEF, recent cardiac arrest - EF 55-60%. Continue IV lasix 40mg qAM, monitor output and Cr as XR shows improving edema COPD - continue prednisone 40mg with next taper to 20mg on 07/04 or per pu lmonology recommendation Else see resident documentation as noted. Subjective Patient seen and evaluated at bedside. States that he essentially feels "unchanged" from yesterday but "may be slightly better." To note, high flow nasal canunula requirement has decreased from 40 L to 30 L at the current time. Patient denies worsening SOB or cough. He states that he is trying to drink the Ensure protein drinks. Last BM yesterday afternoon; denies hematochezia or melena. + chest pain noted at site of prior CPR compressions; controlled with lidocaine patch. No new complaints or concerns today. Review of Systems Review of Systems: See HPI Physical Exam Physical Exam: GENERAL: Ill appearing. EYES: EOMI. HENT: Moist mucous membranes. High flow oxygen via NC. RESPIRATORY: Tachypneic. Crackles and rhonci in bilateral bases. CARDIOVASCULAR: Regular rate and rhythm. No murmurs. ABDOMEN: Soft. Normal bowel sounds. No tenderness to palpation. PSYCH: A/O x3. Euthymic affect. Results & Data Results & Data ([facility]) Vital Signs (Past 12 Hours) Vital Signs Temp Pulse Resp BP BP Pulse Ox 07/01/20 07:13 89 16 94 07/01/20 04:57 87 23 94 07/01/20 04:08 80 22 92 07/01/20 03:29 36.8 C 76 21 136/65 94 06/30/20 23:28 37.0 C 66 24 129/77 93 06/30/20 22:40 96 H 24 92 Resident Activity Tracking Resident Involvement: Resident Care Provided Care Provided: Adult Hospital Medicine (1) Pneumonia Laterality: right Lung location: lower lobe of lung Pneumonia type: due to unspecified organism Qualified Code(s): J18.9 - Pneumonia, unspecified organism
--- NOTE | 2020-07-01 11:17 | XRay Report ---
SINGLE VIEW CHEST CLINICAL HISTORY: Hypoxia. Dyspnea. Covid. FINDINGS: An AP, portable, upright chest radiograph is compared to study dated 06/29/2020 and correlat ed with chest CT dated 06/26/2020. The examination is degraded by portable technique, apical lordotic positioning, and patient rotation. A left subclavian central venous catheter is unchanged in position . The heart is top normal for projection noting atherosclerotic calcification of the thoracic aorta. The pulmonary vasculature is noncongested. Enlargement of the central pulmonary arteries suggests pul monary artery hypertension. Chronic interstitial thickening and advanced emphysematous change is javan lar to previous. There are right larger than pleural effusions with bibasilar airspace opacities. Thi s has decreased as compared to 06/29/2020. No pneumothorax is seen. The skeletal structures are osteop enic. The bony thorax is grossly intact. IMPRESSION: 1. Advanced emphysema. 2. There are right larger left pleural effusions with bibasilar airspace opacities. This has improved as compared to 06/29/2020. Continued follow-up to resolution is recommended. ACT 112: Negative or not required by law. Electronically signed by: Alejandro Panda M.D. 07/01/2020 11:16 AM
--- NOTE | 2020-07-01 12:16 | Pulmonology Progress Note ---
Date of Service July 01, 2020 Assessment & Plan (1) COPD (chronic obstructive pulmonary disease): COPD type: unspecified COPD Qualified Code(s): J44.9 - Chronic obstructive pulmonary disease, unspecified (2) Ischemia of right lower extremity: (3) Pneumonia: Laterality: right Lung location: lower lobe of lung Pneumonia type: due to unspecified organism Qualified Code(s): J18.9 - Pneumonia, unspecified organism (4) Sepsis: Sepsis acute organ dysfunction status: without acute organ dysfunction Sepsis type: sepsis due to unspecified organism Qualified Code(s): A41.9 - Sepsis, unspecified organism (5) Cardiac arrest: Impression: 75-year-old male admitted with ischemic lower extremity. He presented with pneumonia and hypoxemic respiratory failure in the setting of obstructive lung disease. He was taken to the OR today for [id number] amputation and apparently post induction developed cardiac arrest and required brief CPR. He was extubated 06/16/2020. Patient got hypoxic on the floor on 06/26/2020 for which CTA was done and it showed PE. Pulmonary were reconsulted for the same CTA to 06/26/20 personally reviewed: Bilateral pleural effusions appreciated more on the right side, right lower lobe consolidative process appreciated with atelectasis, severe centrilobular emphysema. Bilateral subsegmental and segm ental PE, no evidence of right heart strain. --Acute hypoxic respiratory failure Multifactorial Likely secondary to acute PE on top of severe COPD with emphysema Patient's systolic CHF also playing a role Right lower lobe pneumonia. Continue with antibiotics O2 supplementation to keep oxygen between 80-92% --Severe COPD with emphysema Gold class D Continue with Breo and Incruse On chronic prednisone at home --Acute PE No right heart strain Hemodynamically stable No indication for TPA Patient's number cytopenia will improve out TPA as well Plan: Chest x-ray from today shows improvement compared to the x-ray done 06/29/2020. Pulmonary edema has decreased as well as the right-sided pleural effusion has decreased. Patient's oxygen demand is also decreased he is on 50% FiO2, 35 L and was saturating 91%. Continue with oxygen supplementation to keep oxygen saturation between 88-92% BiPAP nightly and as needed shortness of breath. Seems to be more congested today. He is bringing up phlegm. Continue with flutter valve and incentive spirometry. I will add Mucomyst as well as chest PT. Continue with diuretics. Please note the above document was generated using voice recognition software. It may contain grammatical, syntax or spelling errors.Any formal questions or concerns about the content, text or information contained within the body of this dictation should be directly addressed to the provider for clarification. Admission and Anticipated Discharge Date Admission Date: June 11, 2020 Subjective Patient seen and examined at bedside. No acute distress, no adverse events overnight. Does complain of chest pain anteriorly this is most likely post CPR that he had earlier in the course of the admission. Shortness of breath is still there but it is better than before. Still coughing and bringing up phlegm. Seems to be more congested today. Afebrile. Review of Systems Review of Systems: All systems reviewed & are unremarkable except as noted in Subjective Physical Exam Physical Exam: Constitutional: No acute distress HEENT: EOMI, PERRLA Respiratory system: Decreased air entry bilaterally, positive crackles bilateral lower lobes, no wheeze, positive rhonchi CVS: S1-S2 positive, no murmurs or gallops Abdomen: Soft, nontender, nondistended, positive bowel sounds x4 Extremities: +2 pulses bilaterally radialis/left dorsalis pedis, no cyanosis, no edema, right AKA Neuro: Awake alert oriented x3 Psych: Normal mood and affect G/U: No [place] Skin: no rashes, warm and dry Lymphatic: no cervical or axillary lymphadenopathy Results & Data Results & Data ([facility]) Vital Signs (Past 12 Hours) Vital Signs Temp Pulse Resp BP Pulse Ox 07/01/20 11:08 105 H 22 97 07/01/20 07:13 89 16 94 07/01/20 04:57 87 23 94 07/01/20 04:08 80 22 92 07/01/20 03:29 36.8 C 76 21 136/65 94 07/01/20 05:48 07/01/20 05:48 PG Care Time/CCT Total # of Minutes Spent Total Time Spent with Patient: Total time spent is greater than 50% in coordination of care (as documented) at patient's floor/unit and/or counseling patient: Coding Level of Care Code 70758 Subseq Hosp Care Lvl 3 Diagnoses COPD (chronic obstructive pulmonary disease) J44.9 COPD type: unspecified COPD Ischemia of right lower extremity I99.8 Pneumonia J18.9 Laterality: right Lung location: lower lobe of lung Pneumonia type: due to unspecified organism Sepsis A41.9 Sepsis acute organ dysfunction status: without acute organ dysfunction Sepsis type: sepsis due to unspecified organism Cardiac arrest I46.9
[2020-07-01] MEDS: ACETYLCYSTEINE 20% INHAL SOLN 4ML ***DISPENSED BY RESP. INH SCH ×2 (13:08→19:15)
[2020-07-01 17:28] LABS: BUN Creatinine Ratio 35.6 (10-20); Calcium 7.9 mg/dl (8.5-10.1); Est GFR (African American) 106.1; Est GFR (Non-African American) 91.5; Potassium 4.3 mmol/L (3.5-5.1)
[2020-07-01] MEDS: MoRPHine SULFATE 4 MG/ML 1 ML CARP\\VIAL IV PRN (20:04)
[2020-07-01] MEDS: GABAPENTIN 100 MG CAP PO SCH (20:48)
[2020-07-02] MEDS: LEVALBUTEROL HCL 0.63 MG/3 ML NEB NEB PRN (02:55)
[2020-07-02 06:54] LABS: Hematocrit (blood only) 24.8 % (42-52); Hemoglobin 8.1 g/dL (14.0-18.0); Mean Corpuscular Hemoglobin 29.7 pg (25-34); Mean Corpuscular Hgb Conc 32.7 g/dL (32-36); Mean Corpuscular Volume 90.8 fL (80-100); Platelet Count 90 K/uL (130-400); RDW Coefficient of Variation 14.5 % (11.5-14.5); Red Blood Count 2.73 M/uL (4.7-6.1); White Blood Count 12.24 K/uL (4.8-10.8)
[2020-07-02 06:55] LABS: Partial Thromboplastin Time 52.8 Seconds (21.0-31.0)
[2020-07-02 06:58] LABS: Basophils # (auto) 0.06 K/uL (0-0.2); Basophils % (auto) 0.5 %; Eosinophils % (auto) 1.6 %; Immature Granulocytes # (auto) 0.08 K/uL (0.00-0.02); Immature Granulocytes % (auto) 0.7 %; Lymphocytes # (auto) 2.27 K/uL (1.2-3.4); Lymphocytes % (auto) 18.5 %; Monocytes # (auto) 1.42 K/uL (0.11-0.59); Monocytes % (auto) 11.6 %; Neutrophils # (auto) 8.21 K/uL (1.4-6.5); Neutrophils % (auto) 67.1 %; Platelet Estimate Decreased (Normal); RBC Morphology Unremarkable
[2020-07-02] MEDS: ACETYLCYSTEINE 20% INHAL SOLN 4ML ***DISPENSED BY RESP. INH SCH ×2 (07:03→19:19)
[2020-07-02] MEDS: ALBUT/IPRATROP 3MG/0.5MG NEB 3 ML VIAL NEB SCH ×3 (07:03→19:19)
[2020-07-02 07:17] LABS: Albumin Globulin Ratio 0.4 (0.9-2); Albumin Level 1.8 gm/dl (3.4-5.0); BUN Creatinine Ratio 38.9 (10-20); Bilirubin,Total 0.5 mg/dl (0.2-1); Calcium 8.3 mg/dl (8.5-10.1); Est GFR (African American) 114.1; Est GFR (Non-African American) 98.4; Globulin 4.6 gm/dl (2.5-4.0); Potassium 3.8 mmol/L (3.5-5.1); Total Protein 6.4 gm/dl (6.4-8.2)
[2020-07-02] MEDS: MoRPHine SULFATE 4 MG/ML 1 ML CARP\\VIAL IV PRN ×2 (08:12→19:51)
[2020-07-02] MEDS: UMECLIDINIUM BROMIDE 62.5MCG/BLISTER 7 PUFFS/INHALER INH SCH (08:13)
[2020-07-02] MEDS: FUROSEMIDE 40 MG in SYRINGE 0 ML IV SCH (08:14)
[2020-07-02] MEDS: predniSONE 20 MG TAB PO SCH (08:14)
[2020-07-02] MEDS: FLUTICASONE/VILANTEROL 100/25MCG 14 PUFFS/INHALER INH SCH (08:14)
[2020-07-02] MEDS: POTASSIUM CHLORIDE 20 MEQ/15 ML UDC PO SCH (08:18)
[2020-07-02] MEDS: LIDOCAINE 5% 1 PATCH TD SCH (08:18)
[2020-07-02] MEDS: CETIRIZINE HCL 10 MG TABLET PO SCH (08:19)
[2020-07-02] MEDS: guaiFENesin 600 MG TABCR PO SCH ×2 (08:20→19:53)
[2020-07-02] MEDS: SENNA 8.6 MG TAB PO SCH (08:21)
--- NOTE | 2020-07-02 09:29 | Hospitalist Progress Note ---
Date of Service July 02, 2020 Assessment & Plan (1) Pneumonia: Sukhjinder Lomeli is a 75-year-old male with past medical history significant for CAD, HTN, HLD, extensive smoking history and COPD, hemorrhoids admitted for severe sepsis with acute hypoxic respiratory failure, with initial complaint of RLE pain with findings consistent with critical limb ischemia. Now s/p right AKA Acute Hypoxemic Respiratory Failure - Multifactorial including pneumonia, COPD with significant tobacco use ( > 55 pack-year history), bilateral PE, and pulmonary edema/effusions. - Increased work of breathing and tachypnea are both improving. Patient has weaned off high flow oxygen and is currently receiving 9L NC - Encourage high flow prn and BiPap nightly/ prn - Pulmonology consulted. Appreciate their recommendations. - See below for details. Bilateral PE - CTA chest 06/26/20: Bilateral segmental/subsegmental pulmonary embolus. No evidence for right-sided heart strain. Small bilateral pleural fusions. Consolidation within the right lung base likely represents a pneumonia. This could be secondary to aspiration. Nodular area of thickening within the right upper lobe pleura medially which could represent scarring versus a pleural lesion. [address] follow-up recommended to ensure stability. Mild mediastinal lymphadenopathy. This also bears watching future examinations. Emphysema. - LUE doppler 06/26 due to complaints of swelling -- no DVT seen in LUE - Started on Heparin drip 06/26; PTT 52.8 today - Monitor for bleeding as patient is also w/ thrombocytopenia (platelet count = 90) - Patient with no complaints/concerns of bleeding; normal BM, no bleeding from gums, olmedo catheter in place w/o gross hematuria Pneumonia - CXR 06/27/20: Right greater than left bibasilar consolidative opacities have mildly progressed suggestive of probable pneumonia. Small bilateral pleural effusions have also mildly increased in size. Emphysema. - Repeat CXR 06/28: Advanced emphysema. Right larger than left pleural effusions with bibasilar consolidation is similar to previous. There are increasing patchy opacities in the left midlung. - Repeat CXR 06/29: Pulmonary emphysema. Persistent bilateral pleural effusions w ith associated basilar opacities, atelectasis versus infectious/inflammatory - Repeat CXR 07/01: Advanced emphysema. There are right larger left pleural effusions with bibasilar airspace opacities. This has improved as compared to 06/29/2020. Continued follow-up to resolution is recommended. - Plan to recheck next CXR tomorrow (07/03/20) - Previously completed 10 day course of IV cefepime on 06/26/20 for pneumonia. Due to persistent pneumonia and hypoxemic respiratory failure, restarted cefepime on 06/27/20 - Cefepime discontinued today as patient has now completed 14 day treatment for pneumonia w/ cefepime - Treated with vancomycin for 8 days. Discontinue vancomycin 06/28/20. MRSA nares culture negative. - Sputum cultures and procalcitonin ordered 06/27/20 - Sputum culture with many yeast and many gram positive cocci. Will await final report. - Procal 0.40 - Continue IS and flutter valve use COPD/Emphysema with Cor Pulmonale - Significant past smoking history: >55 pack-years (1+ ppd x >55 years) - Duoneb treatment scheduled q6h while awake and prn - Previously on prednisone 5mg BID but had been stopped. Restarted steroids 06/28 - Per pulmonology recommendations, starting will give prednisone 40 mg for 3 days followed by 20 mg for 3 days and then go to home dose of 5mg po daily. - Increased Mucinex to 1,200mg BID on 06/28 - Continue Breo and Zyrtec daily Pulmonary Edema and Effusions - Small b/l pleural effusions noted on both CTA 06/26 and CXR 06/27 - Repeat CXR 06/28 w/ R > L pleural effusions with bibasilar consolidation similar to previous - Repeat CXR 07/01 as noted above - Received 40mg IV lasix 06/27 with some improvement - Continue daily IV lasix. If patient is not negative balance, can give additional dose of IV lasix - Additional 40mg IV lasix given 06/30 - Net -3 L fluid balance over past 24 hours. - Monitor I/Os. - TTE 06/28 LV sys fxn normal (55-60%), right ventricle is mild to moderately dilated, right ventricular systolic function is mildly reduced, right ventricular systolic pressure is elevated at 40-50mmHg. - Compared to last prior echo, there has been improvement int he overall left ventricular function. Some improvement in RV function. Estimated pulmonary pressures appear higher. CAD with Chronic Systolic CHF - Hx of AR approximately 4 years ago (attempted PCI, vessel ruptured, PCI aborted) - TTE 06/12/20 demonstrated moderate RV dilation w/ mild to moderate reduction of systolic function. LV sys fxn mild to moderately reduced as well. EF 40-45%. Grade I diastolic dysfunction. Mild mitral and tricuspid regurgitation - Repeat TTE as noted above -- improvement in LV sys function - Holding home isosorbide mononitrate, ranolazine, metoprolol, lisinopril, and ASA Protein Malnutrition - Nutrition consulted. Appreciate their assistance and recommendations. Electrolyte abnormalities - Hypokalemia and Hypomagnesium - Acute hypokalemia and hypomagnesemia 06/27/20 repleted with 40 mEq potassium and 2g magnesium, normalized on 06/28 - Recurrent hypokalemia 06/29 (3.2). Suspect associated to daily IV lasix use. - Will start potassium 40 mEq po daily (06/29/20) - Potassium of 3.8 today. 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 Required brief ICU stay. Please see division plant engineer notes for further details. - Previous palliative consult but palliative signed off as patient doing much better; may consider re-consult if current conditions, including pulmonary processes as noted above, do not improve - Continue Tylenol 1000mg q8h prn, ibuprofen 600mg q6h prn, lidocaine patch on anterior chest wall, and morphine 4mg prn for breakthrough pain - Tolerating pain regimen fairly well - Reconsulted vascular surgery for post-op evaluation as patient is still hospitalized Episode of Atrial Fibrillation - resolved - Noted to be in atrial fibrillation with RVR on 06/12, resolved s/p metoprolol - Continues to remain in NSR since that time - Cardiology consulted, appreciate insight and recommendations: - While CHADSVASC is 3 (and therefore, by scoring, anticoagulation is clinically indicated), this single episode of AFib occurred during extenuating circumstances (ischemia, AHRF, hypovolemia) - Given persistence of NSR, will hold from starting anticoagulation at this time - Continue to monitor on tele HLD: - Holding home atorvastatin HTN: - Holding home isosorbide mononitrate, metoprolol, HCTZ, lisinopril CODE STATUS: DNR/DNI FEN/GI: Heart healthy, low-sodium diet DVT prophylaxis: On Heparin due to PEs Dispo: PCU Admission and Anticipated Discharge Date Admission Date: June 11, 2020 Supervising Physician Co-Signing Physician Notes Attending attestation Pt seen and examined in concert with Dr. Christine. In agreement with the documented findings as noted in the resident documentation with any exceptions or additions as noted here. 75 y/o male h/o CAD, HTN, HLD, extensive smoking Hx, COPD admitted w/ severe sepsis with AHRF following critical limb ischemia s/p AKA Continued improvement in O2 saturation with increased tolerance for POI and speech. On examination, S1/S2 consistent tachycardia. scattered rhonchi throughout. Abd NT/ND BS+ve. Acute hypoxic respiratory failure - pulmonology consultation - tolerating 8-9L NC and weaning per protocol Bilateral PE - continue heparin gtt Pulmonary edema & effusions w/ HFrEF, recent cardiac arrest - EF 55-60%. Continue IV lasix 40mg qAM, monitor output and Cr as XR shows improving edema 2.27 COPD - continue prednisone 40mg with next taper to 20mg on /2 or per pulmonology recommendation Pneumonia, likely aspiration - completed course of cefepime x 14 days Else see resident documentation as noted. Subjective On initial evaluation in room this morning, patient states that he had been feeling better but within past 5 minutes, has had recurrent increased work of breathing and discomfort; it is noted that patient was just evaluated by pulmonology and due to clinical improvement and decreased O2 requirements/maintaining O2 sats, the supplemental O2 was decreased from 14L to 11L. He is also complaining of generalized discomfort. Patient does not want to talk much secondary to his complaint of SOB. Patient re-evaluated at bedside this afternoon. He reports significant improvement in his breathing. He is currently using 9L supplemental O2 and satting at ~90%. Patient is speaking in more short sentences and does have some associated dyspnea and hypoxia that recovers with stopping conversation and deep breaths. He states that he has also been trying to "do more exercises" including range of motion of his arms. Patient with no other complaints or concerns at this time. Review of Systems Respiratory: + dyspnea Cardiovascular: + chest pain Physical Exam Physical Exam: GENERAL: Ill appearing but clinically appears better than examination yesterday. EYES: EOMI. HENT: Moist mucous membranes. NC in place. RESPIRATORY: Tachypneic. Crackles and rhonci in bilateral bases. CARDIOVASCULAR: Regular rate and rhythm. No murmurs. ABDOMEN: Soft. Normal bowel sounds. No tenderness to palpation. PSYCH: A/O x3. Euthymic affect. Results & Data Results & Data ([facility]) Vital Signs (Past 12 Hours) Vital Signs Temp Pulse Pulse Resp BP Pulse Ox 07/02/20 07:38 36.5 C 114 H 24 156/88 H 92 07/02/20 07:10 106 H 22 97 07/02/20 03:19 36.8 C 97 H 20 144/81 H 91 07/02/20 02:56 97 H 20 88 L 07/01/20 23:16 97 H 07/01/20 23:11 37.0 C 98 H 18 118/75 90 Resident Activity Tracking Resident Involvement: Resident Care Provided Care Provided: Adult Hospital Medicine (1) Pneumonia Laterality: right Lung location: lower lobe of lung Pneumonia type: due to unspecified organism Qualified Code(s): J18.9 - Pneumonia, unspecified organism
[2020-07-02] MEDS: HEPARIN SODIUM/DEXTROSE 25,000 UNITS/500 ML BAG IV SCH (11:42)
--- NOTE | 2020-07-02 13:08 | Pulmonology Progress Note ---
Date of Service July 02, 2020 Assessment & Plan (1) COPD (chronic obstructive pulmonary disease): COPD type: unspecified COPD Qualified Code(s): J44.9 - Chronic obstructive pulmonary disease, unspecified (2) Ischemia of right lower extremity: (3) Pneumonia: Laterality: right Lung location: lower lobe of lung Pneumonia type: due to unspecified organism Qualified Code(s): J18.9 - Pneumonia, unspecified organism (4) Sepsis: Sepsis acute organ dysfunction status: without acute organ dysfunction Sepsis type: sepsis due to unspecified organism Qualified Code(s): A41.9 - Sepsis, unspecified organism (5) Cardiac arrest: Impression: 75-year-old male admitted with ischemic lower extremity. He presented with pneumonia and hypoxemic respiratory failure in the setting of obstructive lung disease. He was taken to the OR today for [id number] amputation and apparently post induction developed cardiac arrest and required brief CPR. He was extubated 06/16/2020. Patient got hypoxic on the floor on 06/26/2020 for which CTA was done and it showed PE. Pulmonary were reconsulted for the same CTA to 06/26/20 personally reviewed: Bilateral pleural effusions appreciated more on the right side, right lower lobe consolidative process appreciated with atelectasis, severe centrilobular emphysema. Bilateral subsegmental and segm ental PE, no evidence of right heart strain. --Acute hypoxic respiratory failure Multifactorial Likely secondary to acute PE on top of severe COPD with emphysema Patient's systolic CHF also playing a role Right lower lobe pneumonia. 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 I went down to 9 L. Continue with oxygen supplementation to keep oxygen saturation between 88-92% BiPAP nightly and as needed shortness of breath. Continue with chest percussion therapy along with flutter valve and Mucinex Continue with diuretics to keep the patient negative balance. He is diuresing well. Patient is making progress in the right direction when it comes to pulmonary complaints. Continue with above recommendations. Pulmonary will follow peripherally. Call with questions directly. Please note the above document was generated using voice recognition software. It may contain grammatical, syntax or spelling errors.Any formal questions or concerns about the content, text or information contained within the body of this dictation should be directly addressed to the provider for clarification. Admission and Anticipated Discharge Date Admission Date: June 11, 2020 Subjective Patient seen and examined at bedside. No acute distress. Patient still complains of chest pain anteriorly. He has been coughing well especially after initiation of chest percussion therapy. Denies any hemoptysis. Shortness of breath is improved to some degree. No headache, no dizziness. Fair appetite. Review of Systems Review of Systems: All systems reviewed & are unremarkable except as noted in Subjective Physical Exam Physical Exam: Constitutional: No acute distress HEENT: EOMI, PERRLA Respiratory system: Decreased air entry bilaterally, positive crackles bilateral lower lobes, no wheeze, no rhonchi CVS: S1-S2 positive, no murmurs or gallops Abdomen: Soft, nontender, nondistended, positive bowel sounds x4 Extremities: +2 pulses bilaterally radialis/left dorsalis pedis, no cyanosis, no edema, right AKA Neuro: Awake alert oriented x3 Psych: Normal mood and affect G/U: No [place] Skin: no rashes, warm and dry Lymphatic: no cervical or axillary lymphadenopathy Results & Data Results & Data ([facility]) Vital Signs (Past 12 Hours) Vital Signs Temp Pulse Resp BP Pulse Ox 07/02/20 12:19 36.7 C 95 H 24 115/73 98 07/02/20 07:38 36.5 C 114 H 24 156/88 H 92 07/02/20 07:10 106 H 22 97 07/02/20 03:19 36.8 C 97 H 20 144/81 H 91 07/02/20 02:56 97 H 20 88 L 07/02/20 06:14 07/02/20 06:14 PG Care Time/CCT Total # of Minutes Spent Total Time Spent with Patient: Total time spent is greater than 50% in coordination of care (as documented) at patient's floor/unit and/or counseling patient: Coding Level of Care Code 34538 Subseq Hosp Care Lvl 3 Diagnoses COPD (chronic obstructive pulmonary disease) J44.9 COPD type: unspecified COPD Ischemia of right lower extremity I99.8 Pneumonia J18.9 Laterality: right Lung location: lower lobe of lung Pneumonia type: due to unspecified organism Sepsis A41.9 Sepsis acute organ dysfunction status: without acute organ dysfunction Sepsis type: sepsis due to unspecified organism Cardiac arrest I46.9
[2020-07-02] MEDS: ACETAMINOPHEN 325 MG TAB PO PRN (19:52)
[2020-07-02] MEDS: GABAPENTIN 100 MG CAP PO SCH (19:53)
[2020-07-03 06:27] LABS: Partial Thromboplastin Ratio 2.1
[2020-07-03 06:35] LABS: Albumin Level 1.8 gm/dl (3.4-5.0); BUN Creatinine Ratio 35.5 (10-20); Calcium 8.2 mg/dl (8.5-10.1); Est GFR (African American) 120.7; Est GFR (Non-African American) 104.2; Potassium 3.7 mmol/L (3.5-5.1)
--- NOTE | 2020-07-03 06:36 | Hospitalist Progress Note ---
Date of Service July 03, 2020 Assessment & Plan (1) Pneumonia: Sukhjinder Lomeli is a 75-year-old male with past medical history significant for CAD, HTN, HLD, extensive smoking history and COPD, hemorrhoids admitted for severe sepsis with acute hypoxic respiratory failure, with initial complaint of RLE pain with findings consistent with critical limb ischemia. Now s/p right AKA Acute Hypoxemic Respiratory Failure - Improving; now on NC, no longer requiring HFNC - Multifactorial including pneumonia, COPD with significant tobacco use ( > 55 pack-year history), bilateral PE, and pulmonary edema/effusions. - Increased work of breathing and tachypnea are both improving (weened off HFNC --> NC on 07/02) - Pulmonology consulted, appreciate insight and recommendations: - BiPAP qHS/PRN, HFNC PRN - Goal SpO2: 88-92% - Continue diuretics to maintain negative I&O balance - Decrease flow rate as tolerated - Otherwise, as below Bilateral Pulmonary Emboli - on heparin drip - Imaging studies: - CTA Chest 06/26/20: Bilateral segmental/subsegmental pulmonary embolus. No evidence for right-sided heart strain. Small bilateral pleural fusions. Consolidation within the right lung base likely represents a pneumonia. This could be secondary to aspiration. Nodular area of thickening within the right upper lobe pleura medially which could represent scarring versus a pleural lesion. [address] follow-up recommended to ensure stability. Mild mediastinal lymphadenopathy. This also bears watching future examinations. Emphysema. - LUE doppler 06/26 due to complaints of swelling -- no DVT seen in LUE - Monitor for bleeding as patient is also w/ thrombocytopenia (platelet count = 90) - Patient with no complaints/concerns of bleeding; normal BM, no bleeding from gums, Godoy catheter in place w/o gross hematuria - Heparin gtt --> Eliquis 5mg PO daily Pneumonia - persistent; noted on admission, now s/p parental antibiotics (cefepime) for 14 days - Now s/p cefepime x 14 days, vancomycin x 8 days (discontinued 06/06 negative MRSA swab) - Repeat CXR 07/03 demonstrating mild progression of R>L bilateral opacities (PNA vs. pneumonitis), small pleural effusions - Sputum cultures (06/27): many yeast, gram positive cocci - Continue incentive spirometry and flutter valve use COPD/Emphysema with Cor Pulmonale - Gold Class D (with significant past smoking history: >55 pack-years) - DuoNeb treatment scheduled q6h while awake and prn - Per pulmonology recommendations, starting will give prednisone 40 mg until 07/03, followed by 20 mg until 07/06, and then return to home dose of 5mg PO daily - Continue Breo, Incruse daily - Continue Mucinex and Zyrtec daily Pulmonary Edema and Effusions -- Likely secondary to resolving LV function in setting of PNA, PEs, as well as severe hypoalbuminemia - Small b/l pleural effusions persisting throughout multiple imaging studies, including CXR on 07/03 - Continue daily parental furosemide -- continue to maintain negative fluid balance per pulmonology - As below - HFrEF Chronic HFrEF, CAD - Hx of [place] approximately 4 years ago (attempted PCI, vessel ruptured, PCI aborted) - Repeat TTE as noted above -- improvement in LV sys function - TTE 06/28 LV sys fxn normal (55-60%), right ventricle is mild to moderately dilated, right ventricular systolic function is mildly reduced, right ventricular systolic pressure is elevated at 40-50mmHg. - Compared to prior echo (06/12), there has been improvement in the overall left ventricular function (from LVEF 40-45%). Some improvement in RV function. Estimated pulmonary pressures appear higher - Holding home meds: isosorbide mononitrate, ranolazine, metoprolol, lisinopril, and ASA - Strict I&Os, daily weights Severe Protein-Calorie Malnutrition - Nutrition consulted. Appreciate their assistance and recommendations. - Continue 2gNa, heart healthy diet with soft/bite-sized consistency - Continue Boost TID - Severe hypoalbuminemia on daily labs (~1.8) Hypokalemia and Hypomagnesium -- stable - Previously noted to have hypomagnesemia; hypokalemia likely secondary to diuretic use. Repleted. - KCl 40 mEq PO daily - BMP qAM Hyponatremia -- stable - Possibly associated with pulmonary processes as noted above and/or fluid overload - Patient being diuresed with furosemide for the pulmonary edema - Will continue to monitor with BMP qAM Thrombocytopenia - No overt signs or symptoms of bleeding - Transfuse acutely if platelet < 40 - CBC qAM Critical RLE ischemia - 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 Required brief ICU stay. Please see insurance actuary notes for further details. - Previous palliative consult but palliative signed off as patient doing much better; may consider re-consult if current conditions, including pulmonary processes as noted above, do not improve - Continue Tylenol 1000mg q8h prn, ibuprofen 600mg q6h prn, lidocaine patch on anterior chest wall, and morphine 4mg prn for breakthrough pain - Tolerating pain regimen fairly well - Reconsulted vascular surgery for post-op evaluation as patient is still hospitalized Episode of Atrial Fibrillation - resolved - See previous notes for details HLD: - Holding home atorvastatin HTN: - Holding home isosorbide mononitrate, metoprolol, HCTZ, lisinopril CODE STATUS: DNR/DNI FEN/GI: Heart healthy, low-sodium diet DVT prophylaxis: On Heparin due to PEs Dispo: PCU Admission and Anticipated Discharge Date Admission Date: June 11, 2020 Supervising Physician Co-Signing Physician Notes I personally examined the patient and verified all flynn points of history and exam, discussed case, and agree with decision making with Dr Worley feeling better than before - breathing slowly improving vitals noted nad heent nc at mmm lungs coarse but overall clear no r/r/w good effort no focal neuro deficits PE - transition to eliquis pneumonia - concern on MRSA > pseudomonas - now treated and resolved severe COPD - continue med / inhaler management hypoxic respiratory failure - due to all of above critical limb ischemia - post amputation otherwise as above Subjective No acute events overnight. At the bedside this morning, patient reports feeling poor; upon returning an hour later, says he feels well. When I specifically what's wrong, he said that his back is somewhat uncomfortable. He says that he is at his baseline level of shortness of breath; compared to a week ago, much improved. He says that his baseline level of chest pain is also present; unchanged from previous days. Appetite is poor, but Boost makes this somewhat manageable. No bleeding he's observed. No melena or hematochezia. No hematuria. Review of Systems Review of Systems: as per HPI Physical Exam Constitutional: Frail-appearing 75-year-old male who is lying back in his hospital bed, left lateral decubitus position, upon my arrival. He is intermittently dyspneic, requiring breaks, throughout our conversation. He is alert and oriented fully. Mild distress 2/2 respiratory effort. Respiratory: Increased respiratory effort, symmetric expansion of the chest. Mild use of accessory muscles. Lungs demonstrate mild rhonchi in the RLL, diminished sounds in the LLL. Intermittently diminished breath sounds throughout both lobes. Cardiovascular: Difficult to appreciate heart sounds secondary to respiratory effort. Of what could be heard - NRRR, S1/S2 present without m/r/g No appreciable JVD. Hepatojugular reflex negative. No peripheral edema in LLE. Gastrointestinal (Abdomen): normal bowel sounds, soft, nontender, no hepatosplenomegaly Skin: RLE AKA stump slightly necrotic at center. [place] in place. Otherwise c/d/i Genitourinary: Godoy in place. Bag demonstrating yellow, non-bloody urine Results & Data Results & Data ([facility]) Vital Signs (Past 12 Hours) Vital Signs Temp Pulse Pulse Resp BP BP Pulse Ox 07/03/20 04:00 37.2 C 83 19 111/77 94 07/02/20 23:00 88 07/02/20 22:33 36.9 C 87 15 107/66 100 07/02/20 19:48 37.2 C 103 H 22 139/80 98 07/02/20 19:16 107 H 22 93 Resident Activity Tracking Resident Involvement: Resident Care Provided Care Provided: Adult Hospital Medicine (1) Pneumonia Laterality: right Lung location: lower lobe of lung Pneumonia type: due to unspecified organism Qualified Code(s): J18.9 - Pneumonia, unspecified organism
[2020-07-03 06:38] LABS: Albumin Globulin Ratio 0.4 (0.9-2); Bilirubin,Total 0.6 mg/dl (0.2-1); Globulin 4.5 gm/dl (2.5-4.0); Total Protein 6.3 gm/dl (6.4-8.2)
[2020-07-03 06:43] LABS: Hematocrit (blood only) 23.9 % (42-52); Hemoglobin 7.7 g/dL (14.0-18.0); Mean Corpuscular Hemoglobin 29.8 pg (25-34); Mean Corpuscular Hgb Conc 32.2 g/dL (32-36); Mean Corpuscular Volume 92.6 fL (80-100); Mean Platelet Volume 14.1 fL (7.4-10.4); Partial Thromboplastin Time 56.1 Seconds (21.0-31.0); Platelet Count 91 K/uL (130-400); RDW Coefficient of Variation 14.7 % (11.5-14.5); RDW Standard Deviation 49.3 fL (36.4-46.3); Red Blood Count 2.58 M/uL (4.7-6.1); White Blood Count 8.82 K/uL (4.8-10.8)
[2020-07-03 07:08] LABS: Basophils # (auto) 0.03 K/uL (0-0.2); Basophils % (auto) 0.3 %; Eosinophils # (auto) 0.15 K/uL (0-0.5); Eosinophils % (auto) 1.7 %; Giant Platelets 1+; Immature Granulocytes # (auto) 0.05 K/uL (0.00-0.02); Immature Granulocytes % (auto) 0.6 %; Lymphocytes # (auto) 2.15 K/uL (1.2-3.4); Lymphocytes % (auto) 24.4 %; Monocytes # (auto) 1.43 K/uL (0.11-0.59); Monocytes % (auto) 16.2 %; Neutrophils # (auto) 5.01 K/uL (1.4-6.5); Neutrophils % (auto) 56.8 %; Platelet Estimate Decreased (Normal); RBC Morphology Unremarkable
[2020-07-03] MEDS: ACETYLCYSTEINE 20% INHAL SOLN 4ML ***DISPENSED BY RESP. INH SCH ×2 (07:10→19:20)
[2020-07-03] MEDS: ALBUT/IPRATROP 3MG/0.5MG NEB 3 ML VIAL NEB SCH ×3 (07:10→19:20)
[2020-07-03] MEDS: FUROSEMIDE 40 MG in SYRINGE 0 ML IV SCH (07:39)
[2020-07-03] MEDS: FLUTICASONE/VILANTEROL 100/25MCG 14 PUFFS/INHALER INH SCH (07:40)
[2020-07-03] MEDS: POTASSIUM CHLORIDE 20 MEQ/15 ML UDC PO SCH (07:40)
[2020-07-03] MEDS: UMECLIDINIUM BROMIDE 62.5MCG/BLISTER 7 PUFFS/INHALER INH SCH (07:40)
[2020-07-03] MEDS: guaiFENesin 600 MG TABCR PO SCH ×2 (07:41→20:32)
[2020-07-03] MEDS: CETIRIZINE HCL 10 MG TABLET PO SCH (07:41)
[2020-07-03] MEDS: SENNA 8.6 MG TAB PO SCH (07:41)
[2020-07-03] MEDS: LIDOCAINE 5% 1 PATCH TD SCH (07:42)
[2020-07-03] MEDS: ACETAMINOPHEN 325 MG TAB PO PRN (07:49)
--- NOTE | 2020-07-03 07:55 | XRay Report ---
XR chest 1V portable HISTORY: 75 years-old Male pneumonia/pulmonary effusions/hx copd acute shortness breath with reporte d pneumonia COMPARISON: Chest radiograph 07/01/2020 TECHNIQUE: Portable AP view of the chest FINDINGS: Cardiac silhouette is normal in size. Emphysema with chronic interstitial coarsening. Left subclavian Mrcerp-w-Bmwl catheter is in stable positioning. No pneumothorax. Small bilateral pleural effusions are redemonstrated. Ill-defined left lung base opacities are unchanged. Mildly progressed right midlu ng and right lung base airspace opacities. Degenerative changes of the shoulders and spine. IMPRESSION: 1. Mild progression of the right greater than left bibasilar opacities suspicious for pneumonia or as piration pneumonitis. 2. Small pleural effusions. 3. Emphysema with chronic interstitial coarsening. ACT 112: Negative or not required by law. The above report was generated using voice recognition software. It may contain grammatical, syntax o r spelling errors. Electronically signed by: Tommie Menendez M.D. 07/03/2020 7:53 AM
--- NOTE | 2020-07-03 09:18 | Surgery Progress Note ---
Date of Service July 03, 2020 Assessment & Plan (1) Amputation above knee: Pt RLE AKA with poor muscle coverage. Wound healing well laterally, mild necrosis medially. Will have armando removed the end of this week or just prior to discharge, whichever comes first. Please call if needed. Admission and Anticipated Discharge Date Admission Date: June 11, 2020 Subjective 75 yo m with multiple medical problems, s/p RLE AKA, seen in f/u today. pt admits some pain in R stump, but is tolerable. Denies any other new complaints. Review of Systems Review of Systems: All systems reviewed & are unremarkable except as noted in HPI & below Physical Exam Constitutional: + ill appearing, + frail appearing and + disheveled; not in distress Skin: + incision (RLE AKA healing well laterally, mild necrosis at wound edge medially.DRY) no erythema or drainge Results & Data ([facility]) Vital Signs (Past 12 Hours) Vital Signs Temp Pulse Pulse Pulse Resp BP BP 07/03/20 08:00 79 07/03/20 07:28 37.3 C 98 H 22 138/84 07/03/20 07:12 86 18 07/03/20 04:00 37.2 C 83 19 111/77 07/02/20 23:00 88 07/02/20 22:33 36.9 C 87 15 107/66 Pulse Ox Pulse Ox 07/03/20 08:00 90 07/03/20 07:28 100 07/03/20 07:12 95 07/03/20 04:00 94 07/02/20 23:00 07/02/20 22:33 100
[2020-07-03] MEDS: IBUPROFEN 600 MG TAB PO PRN (11:52)
[2020-07-03 12:12] LABS: Hematocrit (blood only) 26.6 % (42-52); Hemoglobin 8.6 g/dL (14.0-18.0)
[2020-07-03] MEDS: HEPARIN SODIUM/DEXTROSE 25,000 UNITS/500 ML BAG IV SCH (14:15)
--- NOTE | 2020-07-03 16:54 | Billing Data ---
Date of Service July 03, 2020 Coding Level of Care Code 03274 Subseq Hosp Care Lvl 3
[2020-07-03] MEDS: GABAPENTIN 100 MG CAP PO SCH (20:32)
[2020-07-03] MEDS: APIXABAN 5 MG TABLET PO SCH (20:32)
[2020-07-04] MEDS: IBUPROFEN 600 MG TAB PO PRN ×2 (01:23→18:45)
[2020-07-04 06:18] LABS: Mean Corpuscular Hgb Conc 31.9 g/dL (32-36)
[2020-07-04 06:24] LABS: Hematocrit (blood only) 25.4 % (42-52); Hemoglobin 8.1 g/dL (14.0-18.0); Mean Corpuscular Hemoglobin 29.1 pg (25-34); Mean Corpuscular Volume 91.4 fL (80-100); RDW Coefficient of Variation 14.8 % (11.5-14.5); RDW Standard Deviation 48.8 fL (36.4-46.3); Red Blood Count 2.78 M/uL (4.7-6.1); White Blood Count 8.12 K/uL (4.8-10.8)
[2020-07-04 06:38] LABS: BUN Creatinine Ratio 33.9 (10-20); Creatinine Clr Calc Pharmacy 72.8 ml/min; Est GFR (African American) 114.1; Est GFR (Non-African American) 98.4
[2020-07-04 07:04] LABS: Platelet Count 117 K/uL (130-400)
[2020-07-04 07:32] LABS: Basophils # (auto) 0.02 K/uL (0-0.2); Basophils % (auto) 0.2 %; Eosinophils % (auto) 1.2 %; Immature Granulocytes # (auto) 0.06 K/uL (0.00-0.02); Immature Granulocytes % (auto) 0.7 %; Lymphocytes # (auto) 1.72 K/uL (1.2-3.4); Lymphocytes % (auto) 21.2 %; Monocytes # (auto) 1.56 K/uL (0.11-0.59); Monocytes % (auto) 19.2 %; Neutrophils # (auto) 4.66 K/uL (1.4-6.5); Neutrophils % (auto) 57.5 %
[2020-07-04] MEDS: FUROSEMIDE 40 MG in SYRINGE 0 ML IV SCH (07:59)
[2020-07-04] MEDS: APIXABAN 5 MG TABLET PO SCH ×2 (07:59→20:35)
[2020-07-04] MEDS: CETIRIZINE HCL 10 MG TABLET PO SCH (07:59)
[2020-07-04] MEDS: guaiFENesin 600 MG TABCR PO SCH ×2 (07:59→20:35)
[2020-07-04] MEDS: FLUTICASONE/VILANTEROL 100/25MCG 14 PUFFS/INHALER INH SCH (08:00)
[2020-07-04] MEDS: SENNA 8.6 MG TAB PO SCH (08:00)
[2020-07-04] MEDS: POTASSIUM CHLORIDE 20 MEQ/15 ML UDC PO SCH (08:00)
[2020-07-04] MEDS: LIDOCAINE 5% 1 PATCH TD SCH (08:00)
[2020-07-04] MEDS: predniSONE 20 MG TAB PO SCH (08:00)
[2020-07-04] MEDS: UMECLIDINIUM BROMIDE 62.5MCG/BLISTER 7 PUFFS/INHALER INH SCH (08:01)
[2020-07-04] MEDS: ALBUT/IPRATROP 3MG/0.5MG NEB 3 ML VIAL NEB SCH ×4 (08:16→19:13)
[2020-07-04] MEDS: ACETYLCYSTEINE 20% INHAL SOLN 4ML ***DISPENSED BY RESP. INH SCH ×3 (08:16→19:13)
--- NOTE | 2020-07-04 11:30 | Hospitalist Progress Note ---
Date of Service July 04, 2020 Assessment & Plan (1) Pneumonia: Sukhjinder Lomeli is a 75-year-old male with past medical history significant for CAD, HTN, HLD, extensive smoking history and COPD, hemorrhoids admitted for severe sepsis with acute hypoxic respiratory failure, with initial complaint of RLE pain with findings consistent with critical limb ischemia. Now s/p right AKA Acute Hypoxemic Respiratory Failure - gradually improving; now on NC, decreasing O2 requirement day-by-day - Multifactorial including pneumonia, COPD with significant tobacco use ( > 55 pack-year history), bilateral PE, and pulmonary edema/effusions. - Increased work of breathing and tachypnea are both improving (decreasing O2 requirement on NC on 07/04; 8 Lpm-->5) - Pulmonology consulted, appreciate insight and recommendations: - BiPAP qHS/PRN, HFNC PRN - Goal SpO2: 88-92% - Continue diuretics to maintain negative I&O balance - Decrease flow rate as tolerated - Otherwise, as below Bilateral Pulmonary Emboli - on heparin drip - Imaging studies: - CTA Chest 06/26/20: Bilateral segmental/subsegmental pulmonary embolus. No evidence for right-sided heart strain. Small bilateral pleural fusions. Consolidation within the right lung base likely represents a pneumonia. This could be secondary to aspiration. Nodular area of thickening within the right upper lobe pleura medially which could represent scarring versus a pleural lesion. [address] follow-up recommended to ensure stability. Mild mediastinal lymphadenopathy. This also bears watching future examinations. Emphysema. - LUE doppler 06/26 due to complaints of swelling -- no DVT seen in LUE - Monitor for bleeding as patient is also w/ thrombocytopenia (PLT 90-110+) - Patient with no complaints/concerns of bleeding; normal BM, no bleeding from gums, Godoy catheter in place w/o gross hematuria - Eliquis 10mg PO b.i.d. until 07/10 (7 days), thereafter 5mg PO b.i.d. Pneumonia - persistent; clinically appearing better -- now s/p parental antibiotics (cefepime) for 14 days - s/p cefepime x 14 days, vancomycin x 8 days (discontinued 06/06 negative MRSA swab) - Repeat CXR 07/03 demonstrating mild progression of R>L bilateral opacities (PNA vs. 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 (with significant past smoking history: >55 pack-years) - DuoNeb treatment scheduled q6h while awake and prn - Per pulmonology recommendations, starting will give prednisone 40 mg until 07/03, followed by 20 mg until 07/06, and then return to home dose of 5mg PO daily - Continue Breo, Incruse daily - Continue Mucinex and Zyrtec daily - Discontinue acetylcysteine due to patient intolerance Pulmonary Edema and Effusions -- Likely secondary to resolving LV function in setting of PNA, PEs, as well as severe hypoalbuminemia - Small b/l pleural effusions persisting throughout multiple imaging studies, including CXR on 07/03 - Continue daily parental furosemide -- continue to maintain negative fluid balance per pulmonology - As below - HFrEF Chronic HFrEF, CAD - Hx of [place] approximately 4 years ago (attempted PCI, vessel ruptured, PCI aborted) - Repeat TTE as noted above -- improvement in LV sys function - TTE 06/28 LV sys fxn normal (55-60%), right ventricle is mild to moderately dilated, right ventricular systolic function is mildly reduced, right ventricular systolic pressure is elevated at 40-50mmHg. - Compared to prior echo (06/12), there has been improvement in the overall left ventricular function (from LVEF 40-45%). Some improvement in RV function. Estimated pulmonary pressures appear higher - Holding home meds: isosorbide mononitrate, ranolazine, metoprolol, lisinopril, and ASA - Strict I&Os, daily weights Severe Protein-Calorie Malnutrition -- patient gradually improving with PO intake - Nutrition consulted. Appreciate their assistance and recommendations. - Continue 2gNa, heart healthy diet with soft/bite-sized consistency - Continue Boost TID - Severe hypoalbuminemia on daily labs (~1.8) Hypokalemia and Hypomagnesium -- resolved - Previously noted to have hypomagnesemia; hypokalemia likely secondary to diuretic use. Repleted. 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 Required brief ICU stay. Please see key ringer notes for further details. - Previous palliative consult but palliative signed off as patient doing much better; may consider re-consult if current conditions, including pulmonary processes as noted above, do not improve - Continue Tylenol 1000mg q8h prn, ibuprofen 600mg q6h prn, lidocaine patch on anterior chest wall, and morphine 4mg prn for breakthrough pain - Tolerating pain regimen fairly well - Reconsulted vascular surgery for post-op evaluation as patient is still hospitalized Episode of Atrial Fibrillation - resolved - See previous notes for details HLD: - Holding home atorvastatin HTN: - Holding home isosorbide mononitrate, metoprolol, HCTZ, lisinopril CODE STATUS: DNR/DNI FEN/GI: Heart healthy, low-sodium diet DVT prophylaxis: On Heparin due to PEs Dispo: PCU. Will work with CM to begin planning disposition after hospital Admission and Anticipated Discharge Date Admission Date: June 11, 2020 Supervising Physician Co-Signing Physician Notes I personally examined the patient and verified all flynn points of history and exam, discussed case, and agree with decision making with Dr Worley feeling better than before - breathing slowly improving vitals noted nad heent nc at mmm lungs coarse but overall clear no r/r/w good effort no focal neuro deficits PE - eliquis pneumonia - concern on MRSA > pseudomonas - now treated and resolved severe COPD - continue med / inhaler management/steroid taper hypoxic respiratory failure - due to all of above, weaning oxygen critical limb ischemia - post amputation otherwise as above. Stable for transfer to medical. Disposition will be somew hat difficult. He has a lot of ongoing care needs and it is not clear how the senior living system will be able to meet them. He is medically getting close to where he would be stable for discharge to the right environment. We will need case management to start to work with the present system on what that environment might be. Subjective NAEO. Feeling well this morning. Feels like breathing is slowly getting better. Chest pain unchanged -- better if anything. Desiring to get OOB and move into the chair. Appetite good. Finished 75% of his breakfast. No other questions / concerns this AM. Review of Systems Review of Systems: as per HPI Physical Exam Constitutional: Frail and pale appearing 75yo M who is interactive and engaged in our conversation today. Slightly more well appearing today compared to yesterday, less WOB. A+O fully. NAD. Respiratory: Mildly increased respiratory effort with symmetric expansion of the chest. Lungs still demonstrating coarseness throughout, diminished breath sounds at bases b/l. No use of accessory muscles today. Cardiovascular: NRRR. S1/S2 present without m/r/g. Gastrointestinal (Abdomen): NABS. Abdomen soft, nontender, nondistended. Skin: Area around right AKA stump is slightly necrotic at the medial side, but otherwise c/d/i Results & Data Results & Data ([facility]) Vital Signs (Past 12 Hours) Vital Signs Temp Pulse Pulse Resp BP Pulse Ox 07/04/20 07:56 36.5 C 89 18 121/68 98 07/04/20 04:00 36.8 C 93 H 18 116/67 97 07/04/20 00:11 103 H Resident Activity Tracking Resident Involvement: Resident Care Provided Care Provided: Adult Hospital Medicine (1) Pneumonia Laterality: right Lung location: lower lobe of lung Pneumonia type: due to unspecified organism Qualified Code(s): J18.9 - Pneumonia, unspecified organism
--- NOTE | 2020-07-04 18:37 | Billing Data ---
Date of Service July 04, 2020 Coding Level of Care Code 99483 Subseq Hosp Care Lvl 3
[2020-07-04] MEDS: GABAPENTIN 100 MG CAP PO SCH (20:35)
[2020-07-05] MEDS: ACETAMINOPHEN 325 MG TAB PO PRN ×2 (02:58→10:17)
--- NOTE | 2020-07-05 06:16 | Hospitalist Progress Note ---
Date of Service July 05, 2020 Assessment & Plan (1) Pneumonia: Sukhjinder Lomeli is a 75-year-old male with past medical history significant for CAD, HTN, HLD, extensive smoking history and COPD, hemorrhoids admitted for severe sepsis with acute hypoxic respiratory failure, with initial complaint of RLE pain with findings consistent with critical limb ischemia. Now s/p right AKA Dispositional Planning - Patient will be in need of the following as they prepare to transition out of the hospital and back into correctional services: - Regular PT, OT to aid with strength rebuilding, ambulation assistance given recent AKA, mobility after prolonged illness - Resources to aid with prosthetic obtainment following his right AKA - Access to flutter valve, and - if available - vibratory vest to aid with expectorant production - Inhalers as below, Eliquis for PE, prednisone for COPD - Access to intermittent lab drawings to monitor electrolytes, platelets, blood counts during recovery -- recommend q3d x 2 weeks - Will continue to work with case management to arrange these needs with correctional services Acute Hypoxemic Respiratory Failure - gradually improving; now on NC, decreasing O2 requirement day-by-day - Multifactorial including pneumonia, COPD with significant tobacco use ( > 55 pack-year history), bilateral PE, and pulmonary edema/effusions. - Increased work of breathing and tachypnea are both improving (decreasing O2 requirement on NC on 07/04; 8 Lpm-->5) - Pulmonology consulted, appreciate insight and recommendations: - BiPAP qHS/PRN, HFNC PRN - Goal SpO2: 88-92% - Continue diuretics to maintain negative I&O balance - Decrease flow rate as tolerated - Pain control (e.g., Morphine) added to aid with pain that is preventing cough / expectorant removal - Vibratory vest PRN - Otherwise, as below Bilateral Pulmonary Emboli - on Eliquis 10mg b.i.d. until 07/10 --> 5mg b.i.d. thereafter - Imaging studies: - CTA Chest 06/26/20: Bilateral segmental/subsegmental pulmonary embolus. No evidence for right-sided heart strain. Small bilateral pleural fusions. Consolidation within the right lung base likely represents a pneumonia. This could be secondary to aspiration. Nodular area of thickening within the right upper lobe pleura medially which could represent scarring versus a pleural lesion. [address] follow-up recommended to ensure stability. Mild mediastinal lymphadenopathy. This also bears watching future examinations. Emphysema. - LUE doppler 06/26 due to complaints of swelling -- no DVT seen in LUE - Monitor for bleeding as patient is also w/ thrombocytopenia (PLT 90-110+) - Patient with no complaints/concerns of bleeding; normal BM, no bleeding from gums, Godoy catheter in place w/o gross hematuria - Eliquis 10mg PO b.i.d. until 07/10 (7 days), thereafter 5mg PO b.i.d. Pneumonia - resolved; clinically appearing better -- now s/p parental antibiotics (cefepime) for 14 days - s/p cefepime x 14 days, vancomycin x 8 days (discontinued 06/06 negative MRSA swab) - Repeat CXR 07/03 demonstrating mild progression of R>L bilateral opacities (PNA vs. 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 (with significant past smoking history: >55 pack-years) - DuoNeb treatment scheduled q6h while awake and prn - Per pulmonology recommendations, starting will give prednisone 40 mg until 07/03, followed by 20 mg until 07/06, and then return to home dose of 5mg PO daily - Continue Breo, Incruse daily - Continue Mucinex and Zyrtec daily Pulmonary Edema and Effusions -- Likely secondary to resolving LV function in setting of PNA, PEs, as well as severe hypoalbuminemia - Small b/l pleural effusions persisting throughout multiple imaging studies, including CXR on 07/03 - Continue daily parental furosemide -- continue to maintain negative fluid balance per pulmonology - As below - HFrEF Chronic HFrEF, CAD - Hx of [place] approximately 4 years ago (attempted PCI, vessel ruptured, PCI aborted) - Repeat TTE as noted above -- improvement in LV sys function - TTE 06/28 LV sys fxn normal (55-60%), right ventricle is mild to moderately dilated, right ventricular systolic function is mildly reduced, right ventricular systolic pressure is elevated at 40-50mmHg. - Compared to prior echo (06/12), there has been improvement in the overall left ventricular function (from LVEF 40-45%). Some improvement in RV function. Estimated pulmonary pressures appear higher - Holding home meds: isosorbide mononitrate, ranolazine, metoprolol, lisinopril, and ASA - Strict I&Os, daily weights Severe Protein-Calorie Malnutrition -- patient gradually improving with PO intake - Nutrition consulted. Appreciate their assistance and recommendations. - Continue 2gNa, heart healthy diet with soft/bite-sized consistency - Continue Boost TID - Severe hypoalbuminemia on daily labs Hypokalemia and Hypomagnesium -- resolved - Previously noted to have hypomagnesemia; hypokalemia likely secondary to diuretic use. Repleted. - KCl 40 mEq PO daily - BMP qAM Hyponatremia -- resolved - Possibly associated with pulmonary processes as noted above and/or fluid overload - Patient being diuresed with furosemide for the pulmonary edema - Will continue to monitor with BMP qAM Thrombocytopenia -- improving, Plts now >100; likely 2/2 malnutrition, phlebotomy, wound - No overt signs or symptoms of bleeding - Transfuse acutely if platelet < 40 - CBC qAM Critical RLE ischemia - 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 Required brief ICU stay. Please see data modeling architect notes for further details. - Previous palliative consult but palliative signed off as patient doing much better; may consider re-consult if current conditions, including pulmonary processes as noted above, do not improve - Continue Tylenol 1000mg q8h prn, ibuprofen 600mg q6h prn, lidocaine patch on anterior chest wall, and morphine 4mg prn for breakthrough pain - Tolerating pain regimen fairly well - Reconsulted vascular surgery for post-op evaluation as patient is still hospitalized Episode of Atrial Fibrillation - resolved - See previous notes for details HLD: - Holding home atorvastatin HTN: - Holding home isosorbide mononitrate, metoprolol, HCTZ, lisinopril CODE STATUS: DNR/DNI FEN/GI: Heart healthy, low-sodium diet DVT prophylaxis: Eliquis for PEs, as above Dispo: Med/tele. Please see above. Admission and Anticipated Discharge Date Admission Date: June 11, 2020 Supervising Physician Co-Signing Physician Notes I personally examined the patient and verified all flynn points of history and exam, discussed case, and agree with decision making with Dr Worley Breathing generally feeling better, overall feeling better. Main complaints are pain and pressure ulcer, as well as a little bit of pain in his toe vitals noted nad heent nc at mmm breathing unlabored no accessory muscle use good effort. Skin shows no rashes no pallor or icterus. Cranial nerves show no focal deficits. PE -stable on eliquis pneumonia - concern on MRSA > pseudomonas - now treated and resolved severe COPD - continue med / inhaler management/steroid taperbreathing appears overall to have improved. Suspect he has severe COPD likely will need oxygen indefinitely hypoxic respiratory failure - due to all of above, weaning oxygen to lowest tolerated levels, although as above I suspect he will need it indefinitely critical limb ischemia - post amputation otherwise as above. Stable for transfer to medical. Working on long-term disposition planning isbetween case management and [facility] system Subjective NAEO. Did have to go up to 6 from 3 Lpm but thereafter saturated >95%. Feeling well this AM otherwise. No SOB. Chest pain at baseline. Appetite is fair - still getting better. Likes being OOB. No other pain or discomfort. Feels like he's better overall Review of Systems Review of Systems: As per HPI Physical Exam Physical Exam: Constitutional: Better-appearing 75yo M who is interactive and engaged in our conversation. On the mode upon my arrival. Lless WOB. A+O fully. NAD. Respiratory: Mildly increased respiratory effort with symmetric expansion of the chest. Lungs still demonstrating coarseness throughout, diminished breath sounds at bases b/l. No use of accessory muscles today. Cardiovascular: NRRR. S1/S2 present without m/r/g. Gastrointestinal (Abdomen): NABS. Abdomen soft, nontender, nondistended. Skin: Area around right AKA stump is slightly necrotic at the medial side, but otherwise c/d/i Results & Data Results & Data ([facility]) Vital Signs (Past 12 Hours) Vital Signs Temp Pulse Pulse Resp BP Pulse Ox Pulse Ox 07/05/20 03:48 36.8 C 101 H 19 107/64 96 07/04/20 23:37 100 H 07/04/20 23:20 37.0 C 100 H 20 127/73 94 07/04/20 21:00 97 07/04/20 19:16 36.8 C 112 H 21 101/84 100 07/04/20 19:14 113 H 20 93 Resident Activity Tracking Resident Involvement: Resident Care Provided Care Provided: Adult Hospital Medicine (1) Pneumonia Laterality: right Lung location: lower lobe of lung Pneumonia type: due to unspecified organism Qualified Code(s): J18.9 - Pneumonia, unspecified organism
[2020-07-05] MEDS: ACETYLCYSTEINE 20% INHAL SOLN 4ML ***DISPENSED BY RESP. INH SCH (06:57)
[2020-07-05] MEDS: ALBUT/IPRATROP 3MG/0.5MG NEB 3 ML VIAL NEB SCH ×3 (06:57→19:58)
[2020-07-05] MEDS: CETIRIZINE HCL 10 MG TABLET PO SCH (08:36)
[2020-07-05] MEDS: predniSONE 20 MG TAB PO SCH (08:36)
[2020-07-05] MEDS: FUROSEMIDE 40 MG TAB PO SCH (08:36)
[2020-07-05] MEDS: SENNA 8.6 MG TAB PO SCH (08:36)
[2020-07-05] MEDS: LIDOCAINE 5% 1 PATCH TD SCH (08:37)
[2020-07-05] MEDS: guaiFENesin 600 MG TABCR PO SCH ×2 (08:37→20:49)
[2020-07-05] MEDS: POTASSIUM CHLORIDE 20 MEQ/15 ML UDC PO SCH (08:38)
[2020-07-05] MEDS: UMECLIDINIUM BROMIDE 62.5MCG/BLISTER 7 PUFFS/INHALER INH SCH (08:38)
[2020-07-05] MEDS: FLUTICASONE/VILANTEROL 100/25MCG 14 PUFFS/INHALER INH SCH (08:38)
[2020-07-05] MEDS: APIXABAN 5 MG TABLET PO SCH ×2 (08:39→20:49)
--- NOTE | 2020-07-05 16:30 | Billing Data ---
Date of Service July 05, 2020 Coding Level of Care Code 54137 Subseq Hosp Care Lvl 3
[2020-07-05] MEDS: IBUPROFEN 600 MG TAB PO PRN (17:42)
[2020-07-05] MEDS: MoRPHine SULFATE 2 MG/ML CARP IV PRN (20:44)
[2020-07-05] MEDS: GABAPENTIN 100 MG CAP PO SCH (20:49)
[2020-07-06] MEDS: ALBUT/IPRATROP 3MG/0.5MG NEB 3 ML VIAL NEB SCH ×3 (07:19→19:22)
[2020-07-06] MEDS: MoRPHine SULFATE 2 MG/ML CARP IV PRN ×4 (07:44→23:15)
[2020-07-06] MEDS ORDERED: ALTEPLASE, RECOMBINANT 1 MG/ML 2ML VIAL INSTIL ONE (07:55)
[2020-07-06] MEDS: CETIRIZINE HCL 10 MG TABLET PO SCH (08:03)
[2020-07-06] MEDS: SENNA 8.6 MG TAB PO SCH (08:03)
[2020-07-06] MEDS: APIXABAN 5 MG TABLET PO SCH ×2 (08:03→20:25)
[2020-07-06] MEDS: FUROSEMIDE 40 MG TAB PO SCH (08:04)
[2020-07-06] MEDS: POTASSIUM CHLORIDE 20 MEQ/15 ML UDC PO SCH (08:04)
[2020-07-06] MEDS: guaiFENesin 600 MG TABCR PO SCH ×2 (08:04→20:24)
[2020-07-06] MEDS: predniSONE 20 MG TAB PO SCH (08:04)
[2020-07-06] MEDS: LIDOCAINE 5% 1 PATCH TD SCH (08:05)
[2020-07-06] MEDS: UMECLIDINIUM BROMIDE 62.5MCG/BLISTER 7 PUFFS/INHALER INH SCH (08:07)
[2020-07-06] MEDS: FLUTICASONE/VILANTEROL 100/25MCG 14 PUFFS/INHALER INH SCH (09:25)
[2020-07-06] MEDS ORDERED: MoRPHine SULFATE 2 MG/ML CARP IV STA (11:06)
--- NOTE | 2020-07-06 13:16 | Hospitalist Progress Note ---
Date of Service July 06, 2020 Assessment & Plan (1) Pneumonia: Sukhjinder Lomeli is a 75-year-old male with past medical history significant for CAD, HTN, HLD, extensive smoking history and COPD, hemorrhoids admitted for severe sepsis with acute hypoxic respiratory failure, with initial complaint of RLE pain with findings consistent with critical limb ischemia (now s/p AKA). Dispositional Planning - Patient will be in need of the following as they prepare to transition out of the hospital and back into correctional services: - Regular PT, OT to aid with strength rebuilding, ambulation assistance given recent AKA, mobility after prolonged illness - Resources to aid with prosthetic obtainment following his right AKA - Access to flutter valve, and - if available - vibratory vest to aid with expectorant production - Inhalers as below, Eliquis for PE, prednisone for COPD - Access to intermittent lab drawings to monitor electrolytes, platelets, blood counts during recovery -- recommend q3d x 2 weeks - At this time, cannot complete 2-step given ambulatory difficulties from AKA. - Will likely require 2-5Lpm NC upon d/c. - Will continue to work with case management to arrange these needs with correctional services Acute Hypoxemic Respiratory Failure - gradually improving; now on NC, O2 requirements seems to have plateaued between 3-5Lpm on NC - Multifactorial including pneumonia, COPD with significant tobacco use ( > 55 pack-year history), bilateral PE, and pulmonary edema/effusions. - Increased work of breathing and tachypnea are both improving (decreasing O2 requirement on NC on 07/04; 8 Lpm-->5) - Pulmonology consulted, appreciate insight and recommendations: - BiPAP qHS/PRN, HFNC PRN - Goal SpO2: 88-92% - Continue diuretics to maintain negative I&O balance - Decrease flow rate as tolerated - Pain control (e.g., Morphine) added to aid with pain that is preventing cough / expectorant removal - Vibratory vest PRN - Otherwise, as below Bilateral Pulmonary Emboli - on Eliquis 10mg b.i.d. until 07/10 --> 5mg b.i.d. thereafter - Imaging studies: - CTA Chest 06/26/20: Bilateral segmental/subsegmental pulmonary embolus. No evidence for right-sided heart strain. Small bilateral pleural fusions. Consolidation within the right lung base likely represents a pneumonia. This could be secondary to aspiration. Nodular area of thickening within the right upper lobe pleura medially which could represent scarring versus a pleural lesion. [address] follow-up recommended to ensure stability. Mild mediastinal lymphadenopathy. This also bears watching future examinations. Emphysema. - LUE doppler 06/26 due to complaints of swelling -- no DVT seen in LUE - Monitor for bleeding as patient is also w/ thrombocytopenia (PLT 90-110+) - Patient with no complaints/concerns of bleeding; normal BM, no bleeding from gums, Godoy catheter in place w/o gross hematuria - Eliquis 10mg PO b.i.d. until 07/10 (7 days), thereafter 5mg PO b.i.d. 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 daily - Continue Breo, Incruse daily - Continue Mucinex and Zyrtec daily Pulmonary Edema and Effusions -- Likely secondary to resolving LV function in setting of PNA, PEs, as well as severe hypoalbuminemia - Small b/l pleural effusions persisting throughout multiple imaging studies, including CXR on 07/03 - Continue daily furosemide 40mg PO daily -- continue to maintain negative fluid balance per pulmonology - As below - HFrEF Chronic HFrEF, CAD -- tolerating furosemide 40mg PO daily well, renal function stable - Hx of [place] approximately 4 years ago (attempted PCI, vessel ruptured, PCI aborted) - Repeat TTE as noted above -- improvement in LV sys function - TTE 06/28 LV sys fxn normal (55-60%), right ventricle is mild to moderately dilated, right ventricular systolic function is mildly reduced, right ventricular systolic pressure is elevated at 40-50mmHg. - Compared to prior echo (06/12), there has been improvement in the overall left ventricular function (from LVEF 40-45%). Some improvement in RV function. Estimated pulmonary pressures appear higher - Holding home meds: isosorbide mononitrate, ranolazine, metoprolol, lisinopril, and ASA - Lasix 40 PO daily - Strict I&Os, daily weights Severe Protein-Calorie Malnutrition -- patient gradually improving with PO intake - Nutrition consulted. Appreciate their assistance and recommendations. 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 Required brief ICU stay. Please see nursery teacher notes for further details. - Previous palliative consult but palliative signed off as patient doing much better; may consider re-consult if current conditions, including pulmonary processes as noted above, do not improve - Continue Tylenol 1000mg q8h prn, ibuprofen 600mg q6h prn, lidocaine patch on anterior chest wall, and morphine 4mg prn for breakthrough pain - Tolerating pain regimen fairly well - Reconsulted vascular surgery for post-op evaluation as patient is still hospitalized Episode of Atrial Fibrillation - resolved - See previous notes for details HLD: - Holding home atorvastatin HTN: - Holding home isosorbide mononitrate, metoprolol, HCTZ, lisinopril Hypokalemia and Hypomagnesium -- resolved; continue KCl 40mEq PO daily Hyponatremia -- resolved CODE STATUS: DNR/DNI FEN/GI: Heart healthy, low-sodium diet DVT prophylaxis: Eliquis for PEs, as above Dispo: Med/tele. Please see above. Plan to speak with custodial physician tomorrow. Admission and Anticipated Discharge Date Admission Date: June 11, 2020 Supervising Physician Co-Signing Physician Notes I personally examined the patient and verified all flynn points of history and exam, discussed case, and agree with decision making with Dr Worley Overall feeling better. Does still need morphine from time to time, but it is helping, and overall his breathing is improving. He notes in his younger days he debby mckeemili vitals noted nad heent nc at mmm breathing unlabored no accessory muscle use good effort. Skin shows no rashes no pallor or icterus. Cranial nerves show no focal deficits. PE -stable on eliquis, continue indefinitely pneumonia - concern on MRSA > pseudomonas - now treated and resolved severe COPD - continue med / inhaler management/steroid taperbreathing continues to improve. Suspect he has severe COPD likely will need oxygen indefinitely hypoxic respiratory failure - due to all of above, weaning oxygen to lowest tolerated levels, although as above I suspect at some degree of liter flow he will need it indefinitely critical limb ischemia - post amputation otherwise as above. Stable on medical. Working on long-term disposition planning isbetween case management and custodial system Subjective NAEO. Woke up this morning and was noting significantly more pain associated with coughing around his chest. Says it's most prominent over the sides. Reproduced with coughing, otherwise not too bad at baseline. Breathing has continued to get better -- no concerns from his perspective on this. Baseline level of central chest pain the same. Appetite ok - voiding/passing BMs without difficulty. No pain at stump. No other concerns. Review of Systems Review of Systems: as per HPI Physical Exam Constitutional: Frail-appearing 75-year-old gentleman who was sleeping upon my arrival. He awakens easily and is freely conversive thereafter. No acute distress. Respiratory: Mildly increased respiratory effort. Lungs continue to demonstrate somewhat coarse breath sounds, intermittent wheezes throughout. Improved from previous exams. No use of accessory muscles. Cardiovascular: Difficult to appreciate heart sounds today given more prominent breathing. Of what could be heard, normal rate and regular rhythm. S1 and S2 are present without murmurs rubs or gallops. Gastrointestinal (Abdomen): normal bowel sounds, soft, nontender, no hepatosplenomegaly Skin: There are areas of focal necrotic tissue surrounding the stump. Unchanged from previous days. The area is nonerythematous and otherwise appears clean and dry. Results & Data Results & Data ([facility]) Vital Signs (Past 12 Hours) Vital Signs Temp Pulse Pulse Resp BP Pulse Ox 07/06/20 08:00 113 H 20 129/78 96 07/06/20 07:40 28 H 07/06/20 07:19 96 H 16 88 L 07/06/20 07:16 36.9 C 96 H 16 104/67 88 L Resident Activity Tracking Resident Involvement: Resident Care Provided Care Provided: Adult Hospital Medicine (1) Pneumonia Laterality: right Lung location: lower lobe of lung Pneumonia type: due to unspecified organism Qualified Code(s): J18.9 - Pneumonia, unspecified organism
--- NOTE | 2020-07-06 17:34 | Billing Data ---
Date of Service July 06, 2020 Coding Level of Care Code 11259 Subseq Hosp Care Lvl 2
[2020-07-06] MEDS: IBUPROFEN 600 MG TAB PO PRN (17:59)
[2020-07-06] MEDS: GABAPENTIN 100 MG CAP PO SCH (20:25)
[2020-07-07] MEDS: ALBUT/IPRATROP 3MG/0.5MG NEB 3 ML VIAL NEB SCH ×3 (07:22→19:49)
[2020-07-07] MEDS: MoRPHine SULFATE 2 MG/ML CARP IV PRN ×3 (08:01→19:52)
--- NOTE | 2020-07-07 08:53 | Surgery Progress Note ---
Date of Service July 07, 2020 Assessment & Plan (1) Amputation above knee: Pt now 3 weeks post op. Wound with some necrosis medially. Remove armando today, place steri strips. Will reeval in office in 2 weeks. Please call if needed. Admission and Anticipated Discharge Date Admission Date: June 11, 2020 Subjective 75 yo m approx 3 weeks s/p RLE AKA by Dr Simon, seen in f/u today. Pt denies any complaints related to RLE wound. Review of Systems Review of Systems: All systems reviewed & are unremarkable except as noted in HPI & below Physical Exam Constitutional: + ill appearing, + frail appearing and + disheveled; not in distress Skin: + incision (RLE AKA healing well laterally, mild necrosis at wound edge medially.DRY) Results & Data ([facility]) Vital Signs (Past 12 Hours) Vital Signs Temp Pulse Resp BP Pulse Ox 07/07/20 07:30 108 H 18 90 07/06/20 22:42 36.8 C 107 H 18 145/77 H 95
[2020-07-07] MEDS: CETIRIZINE HCL 10 MG TABLET PO SCH (09:22)
[2020-07-07] MEDS: guaiFENesin 600 MG TABCR PO SCH ×2 (09:22→20:51)
[2020-07-07] MEDS: APIXABAN 5 MG TABLET PO SCH ×2 (09:22→20:50)
[2020-07-07] MEDS: FUROSEMIDE 40 MG TAB PO SCH (09:22)
[2020-07-07] MEDS: FLUTICASONE/VILANTEROL 100/25MCG 14 PUFFS/INHALER INH SCH (09:23)
[2020-07-07] MEDS: UMECLIDINIUM BROMIDE 62.5MCG/BLISTER 7 PUFFS/INHALER INH SCH (09:23)
[2020-07-07] MEDS: LIDOCAINE 5% 1 PATCH TD SCH (09:23)
[2020-07-07] MEDS: POTASSIUM CHLORIDE 20 MEQ/15 ML UDC PO SCH (09:23)
[2020-07-07] MEDS: SENNA 8.6 MG TAB PO SCH (09:27)
[2020-07-07] MEDS ORDERED: WARFARIN SOD 5 MG TAB PO ONE (10:30)
[2020-07-07] MEDS ORDERED: MoRPHine SULFATE 2 MG/ML CARP IV STA (10:34)
--- NOTE | 2020-07-07 13:12 | Hospitalist Progress Note ---
Date of Service July 07, 2020 Assessment & Plan (1) Pneumonia: Sukhjinder Lomeli is a 75-year-old male with past medical history significant for CAD, HTN, HLD, extensive smoking history and COPD, hemorrhoids admitted for severe sepsis with acute hypoxic respiratory failure, with initial complaint of RLE pain with findings consistent with critical limb ischemia (now s/p AKA). Dispositional Planning - Patient will be in need of the following as they prepare to transition out of the hospital and back into correctional services: - Regular PT, OT to aid with strength rebuilding, ambulation assistance given recent AKA, mobility after prolonged illness -- unfortunately, current correctional facility unable to accommodate with this more than once a month - Resources to aid with prosthetic obtainment following his right AKA -- [facility] noted they'd be able to assist with this - Access to flutter valve, and - if available - vibratory vest to aid with expectorant production - Inhalers as below, Warfarin vs. Eliquis management (+PT/INR checks) - Access to intermittent lab drawings to monitor electrolytes, platelets, blood counts during recovery -- recommend q3d x 2 weeks - Godoy care, management - At this time, cannot complete 2-step given ambulatory difficulties from AKA. - Will likely require 2-5Lpm NC upon d/c - Specific wound care instructions for stump, lower buttock wound - If going straight back to correctional facility rather than inpatient rehab --> likely will need coordination with wound care clinic as outpatient - Patient would be an excellent candidate for inpatient rehab, if possible. Discussed with CM -- will try to determine eligibility. - Will continue to work with case management to arrange these needs with correctional services Acute Hypoxemic Respiratory Failure - gradually improving; now on NC, O2 requirements seems to have plateaued between 3-5Lpm on NC - Multifactorial including pneumonia, COPD with significant tobacco use ( > 55 pack-year history), bilateral PE, and pulmonary edema/effusions. - Increased work of breathing and tachypnea are both improving (now utilizing ~3-5Lpm NC) - Pulmonology consulted, appreciate insight and recommendations: - BiPAP qHS/PRN, HFNC PRN - Goal SpO2: 88-92% - Continue diuretics to maintain negative I&O balance - Pain control (e.g., Morphine) added to aid with pain that is preventing cough / expectorant removal - Vibratory vest PRN Eschar Wound on Buttock - Actively being followed by wound care nursing while here. Recommendations provided to nursing -- continue to follow - Not yet ready for debridement -- will have to wait until inferior portion of wound is solidified - Will likely require coordination as outpatient - If going back to halfway following d/c (e.g., going to inpatient rehab), will require set-up with wound care clinic Bilateral Pulmonary Emboli - on Eliquis 10mg b.i.d. until 07/10 --> 5mg b.i.d. thereafter - Imaging studies: - CTA Chest 06/26/20: Bilateral segmental/subsegmental pulmonary embolus. No evidence for right-sided heart strain. Small bilateral pleural fusions. Consolidation within the right lung base likely represents a pneumonia. This could be secondary to aspiration. Nodular area of thickening within the right upper lobe pleura medially which could represent scarring versus a pleural lesion. [address] follow-up recommended to ensure stability. Mild mediastinal lymphadenopathy. This also bears watching future examinations. Emphysema. - LUE doppler 06/26 due to complaints of swelling -- no DVT seen in LUE - Monitor for bleeding as patient is also w/ thrombocytopenia (PLT 90-110+) - Patient with no complaints/concerns of bleeding; normal BM, no bleeding from gums, Godoy catheter in place w/o gross hematuria - Given limitations of correctional facility formulary, will likely have to transition to Warfarin from Eliquis - Warfarin 5mg PO x 1 today to load --> Warfarin 2mg PO daily - Initiate Lovenox 50mg SQ q12h to bridge - Discontinue Eliquis during bridge - INR Goal: 2-3 Pneumonia - resolved; clinically appearing better -- now s/p parental antibiotics (cefepime) for 14 days - s/p cefepime x 14 days, vancomycin x 8 days (discontinued 06/06 negative MRSA swab) - Continue incentive spirometry and flutter valve use 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 daily - Continue Breo, Incruse daily - Continue Mucinex and Zyrtec daily Pulmonary Edema and Effusions -- Likely secondary to resolving LV function in setting of PNA, PEs, as well as severe hypoalbuminemia - Small b/l pleural effusions persisting throughout multiple imaging studies, including CXR on 07/03 - Continue daily furosemide 40mg PO daily -- continue to maintain negative fluid balance per pulmonology - As below - HFrEF Chronic HFrEF, CAD -- tolerating furosemide 40mg PO daily well, renal function stable - Hx of [place] approximately 4 years ago (attempted PCI, vessel ruptured, PCI aborted) - Repeat TTE as noted above -- improvement in LV sys function - TTE 06/28 LV sys fxn normal (55-60%), right ventricle is mild to moderately dilated, right ventricular systolic function is mildly reduced, right ventricular systolic pressure is elevated at 40-50mmHg. - Compared to prior echo (06/12), there has been improvement in the overall left ventricular function (from LVEF 40-45%). Some improvement in RV function. Estimated pulmonary pressures appear higher - Holding home meds: isosorbide mononitrate, ranolazine, metoprolol, lisinopril, and ASA - Lasix 40 PO daily - Strict I&Os, daily weights Severe Protein-Calorie Malnutrition -- patient gradually improving with PO intake - Nutrition consulted. Appreciate their assistance and recommendations. 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 Required brief ICU stay. Please see cloud architect notes for further details. - Previous palliative consult but palliative signed off as patient doing much better; may consider re-consult if current conditions, including pulmonary processes as noted above, do not improve - Continue Tylenol 1000mg q8h prn, ibuprofen 600mg q6h prn, lidocaine patch on anterior chest wall, and morphine 4mg prn for breakthrough pain - Tolerating pain regimen fairly well - Reconsulted vascular surgery for post-op evaluation as patient is still hospitalized - Dispositional planning as above Episode of Atrial Fibrillation - resolved - See previous notes for details HLD: - Holding home atorvastatin HTN: - Holding home isosorbide mononitrate, metoprolol, HCTZ, lisinopril Hypokalemia and Hypomagnesium -- resolved; continue KCl 40mEq PO daily Hyponatremia -- resolved CODE STATUS: DNR/DNI FEN/GI: Heart healthy, low-sodium diet DVT prophylaxis: Eliquis for PEs, as above Dispo: Med/tele. Please see above. Attempting for inpatient rehabilitation if possible Admission and Anticipated Discharge Date Admission Date: June 11, 2020 Supervising Physician Co-Signing Physician Notes I personally examined the patient and verified all flynn points of history and exam, discussed case, and agree with decision making with Dr Worley Continues to feel better. Pain overall better control, breathing better. Guards noted that with the Covid pandemic, the halfway system has been a little bit more lenient and allowing some patients to actually go to rehab, rather than having outpatient rehab visits from present. vitals noted nad heent nc at mmm breathing unlabored no accessory muscle use good effort. Skin shows no rashes no pallor or icterus. Cranial nerves show no focal deficits. PE -stable on eliquis, continue anticoagulation indefinitely pneumonia - concern on MRSA > pseudomonas - now treated and resolved severe COPD - continue med / inhaler management/steroid taperbreathing continues to improve. Suspect he has severe COPD likely will need oxygen indefinitely hypoxic respiratory failure - due to all of above, weaning oxygen to lowest tolerated levels, although as above I suspect at some degree of liter flow he will need it indefinitely critical limb ischemia - post amputation, overall stable Sacral ulcerongoing local wound care, offloading otherwise as above. Stable on medical. Working on long-term disposition planning isbetween case management and halfway systemif possible rehab would of course be ideal Subjective Feeling well overall. Pain on buttocks continues. Breathing without difficulty -- unchanged from prior days, still much better than before. No other concerns. Would really like to work with more physical/occupational rehabilitation services before transitioning back to halfway Review of Systems Review of Systems: as per HPI Physical Exam Physical Exam: Constitutional: Better-appearing 75yo M who is interactive and engaged in our conversation. On the mode upon my arrival. Lless WOB. A+O fully. NAD. Respiratory: Mildly increased respiratory effort with symmetric expansion of the chest. Lungs still demonstrating coarseness throughout, diminished breath sounds at bases b/l. No use of accessory muscles today. Cardiovascular: NRRR. S1/S2 present without m/r/g. Gastrointestinal (Abdomen): NABS. Abdomen soft, nontender, nondistended. Skin: Area around right AKA stump is slightly necrotic at the medial side, but otherwise c/d/i. Erik removed today. Wound on buttocks reveals ~10-15cm x 5-7cm eschar with mild border erythema. Firm to touch on top, softer on inferior margin. Results & Data Results & Data ([facility]) Vital Signs (Past 12 Hours) Vital Signs Temp Pulse Resp BP Pulse Ox 07/07/20 09:48 36.6 C 16 132/79 07/07/20 07:30 108 H 18 90 Resident Activity Tracking Resident Involvement: Resident Care Provided Care Provided: Adult Hospital Medicine (1) Pneumonia Laterality: right Lung location: lower lobe of lung Pneumonia type: due to unspecified organism Qualified Code(s): J18.9 - Pneumonia, unspecified organism
--- NOTE | 2020-07-07 18:36 | Billing Data ---
Date of Service July 07, 2020 Coding Level of Care Code 51124 Subseq Hosp Care Lvl 3
[2020-07-07] MEDS: GABAPENTIN 100 MG CAP PO SCH (20:53)
[2020-07-07] MEDS: ACETAMINOPHEN 325 MG TAB PO PRN (21:11)
--- NOTE | 2020-07-08 02:43 | Communication Note ---
Date of Service: July 08, 2020 Called to bedside by nursing for concern of AKA surgical incision appearing more open than previously. On review of records, armando were removed from wound in the AM of 07/07 with noted wound central wound necrosis. Steristrips were placed overwound for continued closure of wound. On presentation to bedside, central portion of surgical incision with signs of dehiscence. No drainage from site, or surrounding erythema, or tenderness to palpation. According to nursing, steristrips were unable to hold on wound with the amount of separation of the incision. Instructed nursing to contact vascular surgery team for continued management of wound, and to dress with 4x4 sterile dressings and webroll to keep site clean, to change dressings every shift and as needed until vascular surgery recommendations.
[2020-07-08] MEDS: IBUPROFEN 600 MG TAB PO PRN ×2 (05:59→16:33)
[2020-07-08 06:29] LABS: INR 1.4 (0.9-1.1); Prothrombin Time 13.5 Seconds (9.0-12.0)
[2020-07-08] MEDS: ALBUT/IPRATROP 3MG/0.5MG NEB 3 ML VIAL NEB SCH ×3 (07:20→20:11)
--- NOTE | 2020-07-08 08:46 | Hospitalist Progress Note ---
Date of Service July 08, 2020 Assessment & Plan (1) Pneumonia: Sukhjinder Lomeli is a 75-year-old male with past medical history significant for CAD, HTN, HLD, extensive smoking history and COPD, hemorrhoids admitted for severe sepsis with acute hypoxic respiratory failure, with initial complaint of RLE pain with findings consistent with critical limb ischemia (now s/p AKA). Dispositional Planning - Patient will be in need of the following as they prepare to transition out of the hospital and back into correctional services: - Regular PT, OT to aid with strength rebuilding, ambulation assistance given recent AKA, mobility after prolonged illness -- unfortunately, current correctional facility unable to accommodate with this more than once a month - Resources to aid with prosthetic obtainment following his right AKA -- [facility] noted they'd be able to assist with this - Access to flutter valve, and - if available - vibratory vest to aid with expectorant production - Inhalers as below, Warfarin vs. Eliquis management (+PT/INR checks) - Access to intermittent lab drawings to monitor electrolytes, platelets, blood counts during recovery -- recommend q3d x 2 weeks - Godoy care, management - At this time, cannot complete 2-step given ambulatory difficulties from AKA. - Will likely require 2-5Lpm NC upon d/c - Specific wound care instructions for stump, lower buttock wound - If going straight back to correctional facility rather than inpatient rehab --> likely will need coordination with wound care clinic as outpatient - Patient would be an excellent candidate for inpatient rehab, if possible. Discussed with CM -- will try to determine eligibility. - Will continue to work with case management to arrange these needs with correctional services Acute Hypoxemic Respiratory Failure - gradually improving; now on NC, O2 requirements seems to have plateaued between 3-5Lpm on NC - Multifactorial including pneumonia, COPD with significant tobacco use ( > 55 pack-year history), bilateral PE, and pulmonary edema/effusions. - Increased work of breathing and tachypnea are both improving (now utilizing ~3-5Lpm NC) - Pulmonology consulted, appreciate insight and recommendations: - BiPAP qHS/PRN, HFNC PRN - Goal SpO2: 88-92% - Continue diuretics to maintain negative I&O balance - Pain control (e.g., Morphine) added to aid with pain that is preventing cough / expectorant removal - Vibratory vest PRN Eschar Wound on Buttock - Actively being followed by wound care nursing while here. Recommendations provided to nursing -- continue to follow - Not yet ready for debridement -- will have to wait until inferior portion of wound is solidified - Will likely require coordination as outpatient - If going back to halfway following d/c (e.g., going to inpatient rehab), will require set-up with wound care clinic Bilateral Pulmonary Emboli - on Eliquis 10mg b.i.d. until 07/10 --> 5mg b.i.d. thereafter - Imaging studies: - CTA Chest 06/26/20: Bilateral segmental/subsegmental pulmonary embolus. No evidence for right-sided heart strain. Small bilateral pleural fusions. Consolidation within the right lung base likely represents a pneumonia. This could be secondary to aspiration. Nodular area of thickening within the right upper lobe pleura medially which could represent scarring versus a pleural lesion. [address] follow-up recommended to ensure stability. Mild mediastinal lymphadenopathy. This also bears watching future examinations. Emphysema. - LUE doppler 06/26 due to complaints of swelling -- no DVT seen in LUE - Monitor for bleeding as patient is also w/ thrombocytopenia (PLT 90-110+) - Patient with no complaints/concerns of bleeding; normal BM, no bleeding from gums, Godoy catheter in place w/o gross hematuria - Given limitations of correctional facility formulary, will likely have to transition to Lovenox from Eliquis - Warfarin 2mg PO daily - Initiate Lovenox 50mg SQ q12h to bridge - Discontinue Eliquis during bridge - INR Goal: 2-3 Pneumonia - resolved; clinically appearing better -- now s/p parental antibiotics (cefepime) for 14 days - s/p cefepime x 14 days, vancomycin x 8 days (discontinued 06/06 negative MRSA swab) - Continue incentive spirometry and flutter valve use 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 daily - Continue Breo, Incruse daily - Continue Mucinex and Zyrtec daily Pulmonary Edema and Effusions -- Likely secondary to resolving LV function in setting of PNA, PEs, as well as severe hypoalbuminemia - Small b/l pleural effusions persisting throughout multiple imaging studies, including CXR on 07/03 - Continue daily furosemide 40mg PO daily -- continue to maintain negative fluid balance per pulmonology - As below - HFrEF Chronic HFrEF, CAD -- tolerating furosemide 40mg PO daily well, renal function stable - Hx of [place] approximately 4 years ago (attempted PCI, vessel ruptured, PCI aborted) - Repeat TTE as noted above -- improvement in LV sys function - TTE 06/28 LV sys fxn normal (55-60%), right ventricle is mild to moderately dilated, right ventricular systolic function is mildly reduced, right ventricular systolic pressure is elevated at 40-50mmHg. - Compared to prior echo (06/12), there has been improvement in the overall left ventricular function (from LVEF 40-45%). Some improvement in RV function. Estimated pulmonary pressures appear higher - Holding home meds: isosorbide mononitrate, ranolazine, metoprolol, lisinopril, and ASA - Lasix 40 PO daily - Strict I&Os, daily weights Severe Protein-Calorie Malnutrition -- patient gradually improving with PO intake - Nutrition consulted. Appreciate their assistance and recommendations. 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 Required brief ICU stay. Please see watch assembly instructor notes for further details. - Previous palliative consult but palliative signed off as patient doing much better; may consider re-consult if current conditions, including pulmonary processes as noted above, do not improve - Continue Tylenol 1000mg q8h prn, ibuprofen 600mg q6h prn, lidocaine patch on anterior chest wall, and morphine 4mg prn for breakthrough pain - Tolerating pain regimen fairly well - Reconsulted vascular surgery for post-op evaluation as patient is still hospitalized - At this point would treat the open area conservatively - If needed he may need to have more resection of his femur however he is at high risk (previous intraop cardiac arrest) - We also consulted the wound care nurse for wound care. - Dispositional planning as above Episode of Atrial Fibrillation - resolved - See previous notes for details HLD: - Holding home atorvastatin HTN: - Holding home isosorbide mononitrate, metoprolol, HCTZ, lisinopril Hypokalemia and Hypomagnesium -- resolved; continue KCl 40mEq PO daily Hyponatremia -- resolved CODE STATUS: DNR/DNI FEN/GI: Heart healthy, low-sodium diet DVT prophylaxis: Eliquis for PEs, as above Dispo: Med/surg. Please see above. Attempting for inpatient rehabilitation if possible Admission and Anticipated Discharge Date Admission Date: June 11, 2020 Supervising Physician Co-Signing Physician Notes I personally examined the patient and verified all flynn points of history and exam, discussed case, and agree with decision making with Dr Mason feeling about the same vitals noted nad heent nc at mmm breathing unlabored no accessory muscle use good effort. Skin shows no rashes no pallor or icterus. Cranial nerves show no focal deficits. PE -stable on eliquis, continue anticoagulation indefinitely pneumonia - concern on MRSA > pseudomonas - now treated and resolved severe COPD - continue med / inhaler management/steroid taperbreathing overall stable. Suspect he has severe COPD likely will need oxygen indefinitely hypoxic respiratory failure - due to all of above, weaning oxygen to lowest tolerated levels, although as above I suspect at some degree of liter flow he will need it indefinitely critical limb ischemia - post amputation, overall stable Sacral ulcerongoing local wound care, offloading otherwise as above. Stable on medical. Working on long-term disposition planning isbetween case management and halfway systemif possible rehab would of course be ideal Subjective Doing overall well. Breathing well on NC. Pain on buttocks. Mentions vascular surgeyr saw him and mentioned possibility that he may need further surgical intervention but he would likely be very high risk (previous intraop cardiac arrest)--patient says he knows he would "not make it" a second time. Review of Systems Review of Systems: All systems reviewed & are unremarkable except as noted in Subjective Physical Exam Physical Exam: Constitutional: A&Ox3. NAD. Cooperative, comfortable. Respiratory: Mildly increased respiratory effort with symmetric expansion of the chest. Lungs still demonstrating coarseness throughout, diminished breath sounds at bases b/l. No use of accessory muscles. Cardiovascular: RRR. S1/S2 present without m/r/g. Gastrointestinal (Abdomen): NABS. Abdomen soft, nontender, nondistended. Skin: Area around right AKA stump is slightly necrotic at the medial side, but otherwise c/d/i. Erik removed yesterday--has small opening of incision. Results & Data Results & Data ([facility]) Vital Signs (Past 12 Hours) Vital Signs Temp Pulse Resp BP Pulse Ox 07/08/20 07:40 36.5 C 96 H 16 98/63 L 96 07/08/20 07:21 101 H 20 94 07/07/20 23:20 36.8 C 117 H 20 106/67 96 Resident Activity Tracking Resident Involvement: Resident Care Provided Care Provided: Adult Hospital Medicine (1) Pneumonia Laterality: right Lung location: lower lobe of lung Pneumonia type: due to unspecified organism Qualified Code(s): J18.9 - Pneumonia, unspecified organism
--- NOTE | 2020-07-08 09:12 | Surgery Progress Note ---
Date of Service July 08, 2020 Assessment & Plan (1) Dehiscence of amputation stump: At this point would treat the open area conservatively. If needed he may need to have more resection of his femur however he is at high risk for the previous intraoperative cardiac arrest from his last operation. We also consulted the wound care nurse for wound care. Admission and Anticipated Discharge Date Admission Date: June 11, 2020 Subjective The patient with no complaints. He did have a small area of dehiscence in his AKA stump during the night and an area of skin necrosis. Physical Exam Physical Exam: On exam he has 1/2 cm opening by 2 cm long opening of the incision over the femur the above the amputation stump. He this gentleman has very little muscle mass and subcutaneous tissue for coverage. Most likely he will need revision with more excision of the femur. We will treat him locally at first with dressing changes. Results & Data ([facility]) Vital Signs (Past 12 Hours) Vital Signs Temp Pulse Resp BP Pulse Ox 07/08/20 07:40 36.5 C 96 H 16 98/63 L 96 07/08/20 07:21 101 H 20 94 07/07/20 23:20 36.8 C 117 H 20 106/67 96
[2020-07-08] MEDS: LIDOCAINE 5% 1 PATCH TD SCH (09:42)
[2020-07-08] MEDS: UMECLIDINIUM BROMIDE 62.5MCG/BLISTER 7 PUFFS/INHALER INH SCH (09:42)
[2020-07-08] MEDS: guaiFENesin 600 MG TABCR PO SCH ×2 (09:43→20:44)
[2020-07-08] MEDS: FLUTICASONE/VILANTEROL 100/25MCG 14 PUFFS/INHALER INH SCH (09:43)
[2020-07-08] MEDS: SENNA 8.6 MG TAB PO SCH (09:43)
[2020-07-08] MEDS: POTASSIUM CHLORIDE 20 MEQ/15 ML UDC PO SCH (09:43)
[2020-07-08] MEDS: APIXABAN 5 MG TABLET PO SCH ×2 (09:43→20:45)
[2020-07-08] MEDS: CETIRIZINE HCL 10 MG TABLET PO SCH (09:43)
[2020-07-08] MEDS: FUROSEMIDE 40 MG TAB PO SCH (09:43)
[2020-07-08] MEDS ORDERED: MoRPHine SULFATE 4 MG/ML 1 ML CARP\\VIAL IV STA (12:15)
[2020-07-08] MEDS: WARFARIN SOD 2 MG TAB PO SCH (15:48)
--- NOTE | 2020-07-08 19:19 | Billing Data ---
Date of Service July 08, 2020 Coding Level of Care Code 62798 Subseq Hosp Care Lvl 2
[2020-07-08] MEDS: MoRPHine SULFATE 2 MG/ML CARP IV PRN (20:42)
[2020-07-08] MEDS: GABAPENTIN 100 MG CAP PO SCH (20:44)
[2020-07-08] MEDS: predniSONE 5 MG TAB PO SCH (20:44)
[2020-07-09] MEDS: MoRPHine SULFATE 2 MG/ML CARP IV PRN ×2 (05:18→16:57)
[2020-07-09 06:12] LABS: INR 1.7 (0.9-1.1); Prothrombin Time 16.6 Seconds (9.0-12.0)
[2020-07-09] MEDS: ALBUT/IPRATROP 3MG/0.5MG NEB 3 ML VIAL NEB SCH ×3 (07:06→19:21)
--- NOTE | 2020-07-09 08:05 | Hospitalist Progress Note ---
Date of Service July 09, 2020 Assessment & Plan (1) Pneumonia: Sukhjinder Lomeli is a 75-year-old male with past medical history significant for CAD, HTN, HLD, extensive smoking history and COPD, hemorrhoids admitted for severe sepsis with acute hypoxic respiratory failure, with initial complaint of RLE pain with findings consistent with critical limb ischemia (now s/p AKA). Dispositional Planning - Patient will be in need of the following as they prepare to transition out of the hospital and back into correctional services: - Regular PT, OT to aid with strength rebuilding, ambulation assistance given recent AKA, mobility after prolonged illness -- unfortunately, current correctional facility unable to accommodate with this more than once a month - Resources to aid with prosthetic obtainment following his right AKA -- [facility] noted they'd be able to assist with this - Access to flutter valve, and - if available - vibratory vest to aid with expectorant production - Inhalers as below, Warfarin vs. Eliquis management (+PT/INR checks) - Access to intermittent lab drawings to monitor electrolytes, platelets, blood counts during recovery -- recommend q3d x 2 weeks - Godoy care, management - At this time, cannot complete 2-step given ambulatory difficulties from AKA. - Will likely require 2-5Lpm NC upon d/c - Specific wound care instructions for stump, lower buttock wound - If going straight back to correctional facility rather than inpatient rehab --> likely will need coordination with wound care clinic as outpatient - Patient would be an excellent candidate for inpatient rehab, if possible. CM working to attempt placement at [facility]. - Will continue to work with case management to arrange these needs with correctional services Acute Hypoxemic Respiratory Failure - gradually improving; now on NC, O2 requirements seems to have plateaued between 3-5Lpm on NC - Multifactorial including pneumonia, COPD with significant tobacco use ( > 55 pack-year history), bilateral PE, and pulmonary edema/effusions. - Increased work of breathing and tachypnea are both improving (now utilizing ~3-5Lpm NC) - Pulmonology consulted, appreciate insight and recommendations: - BiPAP qHS/PRN, HFNC PRN - Goal SpO2: 88-92% - Continue diuretics to maintain negative I&O balance - Pain control (e.g., Morphine) added to aid with pain that is preventing cough / expectorant removal - Vibratory vest PRN Eschar Wound on Buttock - Actively being followed by wound care nursing while here. Recommendations provided to nursing -- continue to follow - Not yet ready for debridement -- will have to wait until inferior portion of wound is solidified - Will likely require coordination as outpatient - If going back to senior care following d/c (e.g., going to inpatient rehab), will require set-up with wound care clinic Bilateral Pulmonary Emboli - on Eliquis 10mg b.i.d. until 07/10 --> 5mg b.i.d. thereafter - Imaging studies: - CTA Chest 06/26/20: Bilateral segmental/subsegmental pulmonary embolus. No evidence for right-sided heart strain. Small bilateral pleural fusions. Consolidation within the right lung base likely represents a pneumonia. This could be secondary to aspiration. Nodular area of thickening within the right upper lobe pleura medially which could represent scarring versus a pleural lesion. [address] follow-up recommended to ensure stability. Mild mediastinal lymphadenopathy. This also bears watching future examinations. Emphysema. - LUE doppler 06/26 due to complaints of swelling -- no DVT seen in LUE - Monitor for bleeding as patient is also w/ thrombocytopenia (PLT 90-110+) - Patient with no complaints/concerns of bleeding; normal BM, no bleeding from gums, Godoy catheter in place w/o gross hematuria - Given limitations of correctional facility formulary, will likely have to transition to Lovenox from Eliquis - Warfarin 2mg PO daily - Initiate Lovenox 50mg SQ q12h to bridge - Discontinue Eliquis during bridge - INR Goal: 2-3 Pneumonia - resolved; clinically appearing better -- now s/p parental antibiotics (cefepime) for 14 days - s/p cefepime x 14 days, vancomycin x 8 days (discontinued 06/06 negative MRSA swab) - Continue incentive spirometry and flutter valve use 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 daily - Continue Breo, Incruse daily - Continue Mucinex and Zyrtec daily Pulmonary Edema and Effusions -- Likely secondary to resolving LV function in setting of PNA, PEs, as well as severe hypoalbuminemia - Small b/l pleural effusions persisting throughout multiple imaging studies, including CXR on 07/03 - Continue daily furosemide 40mg PO daily -- continue to maintain negative fluid balance per pulmonology - As below - HFrEF Chronic HFrEF, CAD -- tolerating furosemide 40mg PO daily well, renal function stable - Hx of DC approximately 4 years ago (attempted PCI, vessel ruptured, PCI aborted) - Repeat TTE as noted above -- improvement in LV sys function - TTE 06/28 LV sys fxn normal (55-60%), right ventricle is mild to moderately dilated, right ventricular systolic function is mildly reduced, right ventricular systolic pressure is elevated at 40-50mmHg. - Compared to prior echo (06/12), there has been improvement in the overall left ventricular function (from LVEF 40-45%). Some improvement in RV function. Estimated pulmonary pressures appear higher - Holding home meds: isosorbide mononitrate, ranolazine, metoprolol, lisinopril, and ASA - Lasix 40 PO daily - Strict I&Os, daily weights Severe Protein-Calorie Malnutrition -- patient gradually improving with PO intake - Nutrition consulted. Appreciate their assistance and recommendations. 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 Required brief ICU stay. Please see corrective therapist notes for further details. - Previous palliative consult but palliative signed off as patient doing much better; may consider re-consult if current conditions, including pulmonary processes as noted above, do not improve - Continue Tylenol 1000mg q8h prn, ibuprofen 600mg q6h prn, lidocaine patch on anterior chest wall, and morphine 4mg prn for breakthrough pain - Tolerating pain regimen fairly well - Reconsulted vascular surgery for post-op evaluation as patient is still hospitalized - At this point would treat the open area conservatively - If needed he may need to have more resection of his femur however he is at high risk (previous intraop cardiac arrest) - We also consulted the wound care nurse for wound care. - Dispositional planning as above Episode of Atrial Fibrillation - resolved - See previous notes for details HLD: - Holding home atorvastatin HTN: - Holding home isosorbide mononitrate, metoprolol, HCTZ, lisinopril Hypokalemia and Hypomagnesium -- resolved; continue KCl 40mEq PO daily Hyponatremia -- resolved CODE STATUS: DNR/DNI FEN/GI: Heart healthy, low-sodium diet DVT prophylaxis: Eliquis for PEs, as above Dispo: Med/surg. Please see above. Attempting for inpatient rehabilitation if possible Admission and Anticipated Discharge Date Admission Date: June 11, 2020 Supervising Physician Co-Signing Physician Notes I personally examined the patient and verified all flynn points of history and ex am, discussed case, and agree with decision making with Dr Mason Feeling fairly good, just waiting on possible rehab placement vitals noted nad heent nc at mmm breathing unlabored no accessory muscle use good effort. Skin shows no rashes no pallor or icterus. Cranial nerves show no focal deficits. PE -stable on eliquis, continue anticoagulation indefinitely pneumonia - concern on MRSA > pseudomonas - now treated and resolved severe COPD - continue med / inhaler management/steroid taperbreathing overall stable. Suspect he has severe COPD likely will need oxygen indefinitely, although his liter flow needs seem to balance between 3 to 6 L depending on the day and the situation hypoxic respiratory failure - due to all of above, weaning oxygen to lowest tolerated levels, although as above I suspect at some degree of liter flow he will need it indefinitely critical limb ischemia - post amputation, overall stable, PT/OT, rehab would be ideal Sacral ulcerongoing local wound care, offloading, and discussion with wound team no need for debridement at this time, although it may be required in the future depending on progress of the wound otherwise as above. Stable on medical. Working on long-term disposition planning isbetween case management and senior care systemif possible rehab would of course be ideal Subjective Says he feels well today, breathing better, able to eat more since yesterday. He knows Case management is working on finding him placement for rehab. No further complaints or concerns. Review of Systems Review of Systems: All systems reviewed & are unremarkable except as noted in Subjective Physical Exam Physical Exam: Constitutional: A&Ox3. NAD. Cooperative, comfortable. Respiratory: Mildly increased respiratory effort with symmetric expansion of the chest. Lungs still demonstrating coarseness throughout, diminished breath sounds at bases b/l. No use of accessory muscles. Cardiovascular: RRR. S1/S2 present without m/r/g. Gastrointestinal (Abdomen): NABS. Abdomen soft, nontender, nondistended. Skin: Area around right AKA stump is slightly necrotic at the medial side, but otherwise c/d/i. Erik removed yesterday--has small opening of incision. Results & Data Results & Data ([facility]) Vital Signs (Past 12 Hours) Vital Signs Temp Pulse Pulse Resp BP Pulse Ox Pulse Ox 07/09/20 07:44 36.7 C 107 H 18 114/72 97 07/09/20 07:08 104 H 20 98 07/09/20 05:00 98 07/08/20 23:08 36.6 C 103 H 20 117/70 97 07/08/20 20:13 104 H 18 98 Resident Activity Tracking Resident Involvement: Resident Care Provided Care Provided: Adult Hospital Medicine (1) Pneumonia Laterality: right Lung location: lower lobe of lung Pneumonia type: due to unspecified organism Qualified Code(s): J18.9 - Pneumonia, unspecified organism
[2020-07-09] MEDS: UMECLIDINIUM BROMIDE 62.5MCG/BLISTER 7 PUFFS/INHALER INH SCH (10:07)
[2020-07-09] MEDS: predniSONE 5 MG TAB PO SCH ×2 (10:07→21:34)
[2020-07-09] MEDS: LIDOCAINE 5% 1 PATCH TD SCH (10:07)
[2020-07-09] MEDS: guaiFENesin 600 MG TABCR PO SCH ×2 (10:07→21:33)
[2020-07-09] MEDS: POTASSIUM CHLORIDE 20 MEQ/15 ML UDC PO SCH (10:07)
[2020-07-09] MEDS: FLUTICASONE/VILANTEROL 100/25MCG 14 PUFFS/INHALER INH SCH (10:07)
[2020-07-09] MEDS: SENNA 8.6 MG TAB PO SCH (10:08)
[2020-07-09] MEDS: APIXABAN 5 MG TABLET PO SCH ×2 (10:08→21:33)
[2020-07-09] MEDS: FUROSEMIDE 40 MG TAB PO SCH (10:08)
[2020-07-09] MEDS: CETIRIZINE HCL 10 MG TABLET PO SCH (10:08)
[2020-07-09] MEDS: WARFARIN SOD 2 MG TAB PO SCH (16:57)
--- NOTE | 2020-07-09 17:13 | Billing Data ---
Date of Service July 09, 2020 Coding Level of Care Code 48847 Subseq Hosp Care Lvl 2
[2020-07-09] MEDS: ACETAMINOPHEN 325 MG TAB PO PRN (18:03)
[2020-07-09] MEDS ORDERED: HYDROmorphone INJ 0.5 MG/0.5 ML SYR IV STA (21:12)
[2020-07-09] MEDS: GABAPENTIN 100 MG CAP PO SCH (21:34)
[2020-07-10 06:30] LABS: Eosinophils # (auto) 0.01 K/uL (0-0.5); Eosinophils % (auto) 0.1 %; Hematocrit (blood only) 24.4 % (42-52); Hemoglobin 7.9 g/dL (14.0-18.0); Immature Granulocytes # (auto) 0.05 K/uL (0.00-0.02); Immature Granulocytes % (auto) 0.6 %; Lymphocytes # (auto) 0.92 K/uL (1.2-3.4); Lymphocytes % (auto) 10.9 %; Mean Corpuscular Hgb Conc 32.4 g/dL (32-36); Mean Corpuscular Volume 89.7 fL (80-100); Mean Platelet Volume 12.6 fL (7.4-10.4); Monocytes # (auto) 1.44 K/uL (0.11-0.59); Monocytes % (auto) 17.1 %; Neutrophils # (auto) 5.99 K/uL (1.4-6.5); Neutrophils % (auto) 71.3 %; Platelet Count 298 K/uL (130-400); RDW Coefficient of Variation 15.3 % (11.5-14.5); RDW Standard Deviation 49.9 fL (36.4-46.3); Red Blood Count 2.72 M/uL (4.7-6.1); White Blood Count 8.41 K/uL (4.8-10.8)
[2020-07-10 06:38] LABS: INR 2.5 (0.9-1.1); Prothrombin Time 23.5 Seconds (9.0-12.0)
[2020-07-10 06:59] LABS: BUN Creatinine Ratio 29.2 (10-20); Calcium 7.7 mg/dl (8.5-10.1); Creatinine Clr Calc Pharmacy 102.6 ml/min; Est GFR (African American) 131.3; Est GFR (Non-African American) 113.3; Potassium 3.3 mmol/L (3.5-5.1)
[2020-07-10 07:02] LABS: RBC Morphology Unremarkable
[2020-07-10] MEDS: ALBUT/IPRATROP 3MG/0.5MG NEB 3 ML VIAL NEB SCH ×3 (07:19→19:21)
[2020-07-10] MEDS: MoRPHine SULFATE 2 MG/ML CARP IV PRN ×2 (08:16→19:44)
[2020-07-10] MEDS: guaiFENesin 600 MG TABCR PO SCH ×2 (09:09→21:04)
[2020-07-10] MEDS: predniSONE 5 MG TAB PO SCH ×2 (09:09→21:04)
[2020-07-10] MEDS: SENNA 8.6 MG TAB PO SCH (09:09)
[2020-07-10] MEDS: FUROSEMIDE 40 MG TAB PO SCH (09:09)
[2020-07-10] MEDS: POTASSIUM CHLORIDE 20 MEQ/15 ML UDC PO SCH (09:10)
[2020-07-10] MEDS: UMECLIDINIUM BROMIDE 62.5MCG/BLISTER 7 PUFFS/INHALER INH SCH (09:10)
[2020-07-10] MEDS: CETIRIZINE HCL 10 MG TABLET PO SCH (09:10)
[2020-07-10] MEDS: APIXABAN 5 MG TABLET PO SCH (09:10)
[2020-07-10] MEDS: FLUTICASONE/VILANTEROL 100/25MCG 14 PUFFS/INHALER INH SCH (09:11)
[2020-07-10] MEDS: LIDOCAINE 5% 1 PATCH TD SCH (09:11)
[2020-07-10] MEDS: IBUPROFEN 600 MG TAB PO PRN ×2 (09:23→21:03)
[2020-07-10] MEDS ORDERED: HYDROmorphone INJ 0.5 MG/0.5 ML SYR IV STA ×2 (09:40→23:31)
--- NOTE | 2020-07-10 12:09 | Hospitalist Progress Note ---
Date of Service July 10, 2020 Assessment & Plan (1) Pneumonia: Sukhjinder Lomeli is a 75-year-old male with past medical history significant for CAD, HTN, HLD, extensive smoking history and COPD, hemorrhoids admitted for severe sepsis with acute hypoxic respiratory failure, with initial complaint of RLE pain with findings consistent with critical limb ischemia (now s/p AKA). The ladder part of his hospital course has been focused on optimization of his AHRF, which seems multifactorial in etiology: end-stage COPD, bilateral PEs, pulmonary edema, and PNA. Dispositional Planning - Patient will be in need of the following as they prepare to transition out of the hospital and back into correctional services VS. inpatient rehabilitation. Case management actively assisting: - Regular PT, OT - Orthotics to aid with prosthetic obtainment - Flutter valve and, if available, vibratory vest - Inhalers. Warfarin with PT, INR checks - Labs draws if needed - Godoy care / management (attempting removal - may not be necessary) - O2 management: 3-5Lpm NC upon d/c - Ability to provide wound care for stump, lower buttock wound - If going straight back to correctional facility rather than inpatient rehab --> will need coordination with wound care clinic as outpatient - Patient would be an excellent candidate for inpatient rehab, if possible. CM working to attempt placement at [facility]. Encourage patient to participa te in PT, OT while here Acute Hypoxemic Respiratory Failure - gradually improving; now on NC, O2 requirements seems to have plateaued between 3-5Lpm on NC - Multifactorial including pneumonia, COPD with significant tobacco use ( > 55 pack-year history), bilateral PE, and pulmonary edema/effusions. - Significantly improved O2 requirement and work of breathing from prior (plateaued now at ~3-5Lpm NC) - Pulmonology consulted earlier in course, appreciate insight and recommendations: - Goal SpO2: 88-92% - Continue diuretics to maintain negative I&O balance - Pain control (e.g., Morphine) added to aid with pain that is preventing cough / expectorant removal - Vibratory vest PRN Eschar Wound on Buttock -- WOCN following - WOCN following. Recommendations provided to nursing -- continue to follow. - Not yet ready for debridement -- will have to wait until inferior portion of wound is solidified - Will likely require coordination as outpatient - If going back to shelter following d/c (e.g., going to inpatient rehab), will require set-up with wound care clinic Bilateral Pulmonary Emboli - Noted on CT-A 06/26. No DVT. - Correctional facility cannot easily accommodate Eliquis. 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 Class D (with >55 pack-year history) - Now s/p prednisone taper - Continue home prednisone (5mg b.i.d.) - Continue Breo, Incruse inhalers daily - Continue Mucinex and Zyrtec daily Pulmonary Edema and Effusions -- Likely from resolving LV function in setting of PNA, PEs, and severe hypoalbuminemia - Small b/l pleural effusions persisting throughout multiple imaging studies - Continue daily furosemide 40mg PO daily - As below - HFrEF Chronic HFrEF, CAD -- tolerating furosemide 40mg PO daily well, renal function stable - Hx of AR approximately 4 years ago (attempted PCI, vessel ruptured, PCI aborted) - TTE 06/28 LV sys fxn normal (55-60%), RV systolic pressure is elevated at 40- 50mmHg. - Compared to prior echo (06/12), improvement in the overall LV function (from LVEF 40-45%). Some improvement in RV function. - Resume home metoprolol succinate 12.5mg b.i.d. - Continue holding home medications: isosorbide mononitrate, ranolazine, lisinopril, and ASA - Lasix as above - Strict I&Os, daily weights Severe Protein-Calorie Malnutrition -- patient gradually improving with PO intake - Nutrition consulted. Appreciate their assistance and recommendations. 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 Required brief ICU stay. Please see in tensivist notes for further details. - Reconsulted vascular surgery for post-op evaluation as patient is still hospitalized (dishesence, necrosis) - At this point would treat the open area conservatively - May need more resection of his femur, but is high risk (previous intraop cardiac arrest) - Wound care consulted - Dispositional planning as above Resolved Problems Episode of Atrial Fibrillation - resolved PNA: s/p 14-day course of cefepime Electrolyte Disturbances (K, Na, Mg): Repleted. KCl 40mEq/day. Chronic Medical Problems: HLD: Holding home atorvastatin HTN: Holding home isosorbide mononitrate, HCTZ, lisinopril CODE STATUS: DNR/DNI FEN/GI: Heart healthy, low-sodium diet DVT prophylaxis: Warfarin for PEs, as above Dispo: Med/surg. Please see above. Attempting for inpatient rehabilitation if possible Admission and Anticipated Discharge Date Admission Date: June 11, 2020 Supervising Physician Co-Signing Physician Notes Resident Physician Supervision Note: I independently interviewed and examined the patient and verified the flynn history and physical, reviewed labs and image studies, discussed the case with the resident Dr. Worley and agree with the findings and care plan. Subjective NAEO. Feeling ok this AM - pain continues to be a problem on his buttock wound. Otherwise, describes feeling not great, but still much better than previous weeks. Same applies to breathing - continues to bring mucus up. Appetite is OK. Thoracic wall pain at baseline. No pain at stump. Review of Systems Review of Systems: as per HPI Physical Exam Constitutional: Overall, well appearing 75 year old gentleman sitting back in his hospital bed, relaxed, upon my arrival. NAD. Respiratory: Mildly increased respiratory effort with symmetric expansion of the chest. Lungs overall CTAB without crackles or wheezes, with slight diminishment at bases. No conversational dyspnea. Gastrointestinal (Abdomen): normal bowel sounds, soft, nontender, no hepatosplenomegaly Skin: LLE s/p AKA does have adjacent areas of necrosis around stump's incision, more-so than last week. Mild erythema. ~1.5in of dehiscence appreciated at the lateral aspect of the incision site. No appreciable discharge. Results & Data Results & Data ([facility]) Vital Signs (Past 12 Hours) Vital Signs Temp Pulse Pulse Resp BP Pulse Ox 07/10/20 08:24 93 07/10/20 08:05 36.4 C L 109 H 19 133/87 90 07/10/20 07:20 109 H 20 93 Resident Activity Tracking Resident Involvement: Resident Care Provided Care Provided: Adult Hospital Medicine (1) Pneumonia Laterality: right Lung location: lower lobe of lung Pneumonia type: due to unspecified organism Qualified Code(s): J18.9 - Pneumonia, unspecified organism
[2020-07-10] MEDS: WARFARIN SOD 2 MG TAB PO SCH (16:11)
[2020-07-10] MEDS: GABAPENTIN 100 MG CAP PO SCH (21:04)
[2020-07-10] MEDS: METOPROLOL SUCC 25MG EXT REL TAB PO SCH (21:05)
[2020-07-10] MEDS: ACETAMINOPHEN 325 MG TAB PO PRN (23:10)
[2020-07-11 06:39] LABS: INR 2.9 (0.9-1.1); Prothrombin Time 27.3 Seconds (9.0-12.0)
[2020-07-11] MEDS: MoRPHine SULFATE 2 MG/ML CARP IV PRN ×3 (07:14→17:52)
[2020-07-11] MEDS: ALBUT/IPRATROP 3MG/0.5MG NEB 3 ML VIAL NEB SCH ×2 (07:43→20:17)
[2020-07-11] MEDS: UMECLIDINIUM BROMIDE 62.5MCG/BLISTER 7 PUFFS/INHALER INH SCH (09:20)
[2020-07-11] MEDS: FLUTICASONE/VILANTEROL 100/25MCG 14 PUFFS/INHALER INH SCH (09:20)
[2020-07-11] MEDS: POTASSIUM CHLORIDE 20 MEQ/15 ML UDC PO SCH (09:21)
[2020-07-11] MEDS: METOPROLOL SUCC 25MG EXT REL TAB PO SCH ×2 (09:21→21:16)
[2020-07-11] MEDS: CETIRIZINE HCL 10 MG TABLET PO SCH (09:22)
[2020-07-11] MEDS: SENNA 8.6 MG TAB PO SCH ×2 (09:22→09:26)
[2020-07-11] MEDS: guaiFENesin 600 MG TABCR PO SCH ×2 (09:22→21:15)
[2020-07-11] MEDS: FUROSEMIDE 40 MG TAB PO SCH (09:23)
[2020-07-11] MEDS: predniSONE 5 MG TAB PO SCH ×2 (09:24→21:15)
[2020-07-11] MEDS: LIDOCAINE 5% 1 PATCH TD SCH (09:25)
[2020-07-11] MEDS: ACETAMINOPHEN 500 MG TAB PO PRN ×2 (09:34→21:13)
--- NOTE | 2020-07-11 09:47 | Hospitalist Progress Note ---
Date of Service July 11, 2020 Assessment & Plan (1) Pneumonia: Sukhjinder Lomeli is a 75-year-old male with past medical history significant for CAD, HTN, HLD, extensive smoking history and COPD, hemorrhoids admitted for severe sepsis with acute hypoxic respiratory failure, with initial complaint of RLE pain with findings consistent with critical limb ischemia (now s/p AKA). The ladder part of his hospital course has been focused on optimization of his AHRF, which seems multifactorial in etiology: end-stage COPD, bilateral PEs, pulmonary edema, and PNA. Dispositional Planning - Patient will be in need of the following as they prepare to transition out of the hospital and back into correctional services VS. inpatient rehabilitation. Case management actively assisting: - Regular PT, OT - Orthotics to aid with prosthetic obtainment - Flutter valve and, if available, vibratory vest - Inhalers. Warfarin with PT, INR checks - Labs draws if needed - Godoy care / management - O2 management: 3-5Lpm NC upon d/c - Ability to provide wound care for stump, lower buttock wound - If going straight back to correctional facility rather than inpatient rehab --> will need coordination with wound care clinic as outpatient - Patient would be an excellent candidate for inpatient rehab, if possible. CM working to attempt placement at [facility]. Encourage patient to participate in PT, OT while here Acute Hypoxemic Respiratory Failure - gradually improving; now on NC, O2 requirements seems to have plateaued between 3-5Lpm on NC - Multifactorial including pneumonia, COPD with significant tobacco use ( > 55 pack-year history), bilateral PE, pulmonary edema/effusions, previous PNA (resolved) - Significantly improved O2 requirement and work of breathing from prior (plateaued now at ~2-5Lpm NC) - Pulmonology consulted earlier in course, appreciate insight and recommendations: - Goal SpO2: 88-92% - Continue diuretics to maintain negative I&O balance - Pain control (e.g., Morphine) added to aid with pain that is preventing cough / expectorant removal - Vibratory vest PRN Eschar Wound on Buttock -- WOCN following - WOCN following. Recommendations provided to nursing -- continue to follow. - Not yet ready for debridement -- will have to wait until inferior portion of wound is solidified - Will likely require coordination as outpatient - If going back to [facility]dc following d/c (e.g., going to inpatient rehab), will require set-up with wound care clinic Bilateral Pulmonary Emboli - Noted on CT-A 06/26. No DVT. - Previously on Eliquis, bridged to Warfarin - Continue Warfarin 2mg PO daily - INR Goal 2-3 - INR q.o.d. while here End-stage COPD/Emphysema with Cor Pulmonale - Gold Class D (with >55 pack-year history) - Continue home prednisone (5mg b.i.d.) - Continue Breo, Incruse inhalers daily - Continue Mucinex and Zyrtec daily Pulmonary Edema and Effusions -- Likely from resolving LV function in setting of PNA, PEs, and severe hypoalbuminemia - Small b/l pleural effusions persisting throughout multiple imaging studies - Continue daily furosemide 40mg PO daily - As below - HFrEF Chronic HFrEF, CAD -- tolerating furosemide 40mg PO daily well, renal function stable - Hx of [place] approximately 4 years ago (attempted PCI, vessel ruptured, PCI aborted) - TTE 06/28 LV sys fxn normal (55-60%), RV systolic pressure is elevated at 40- 50mmHg (improved from 06/12) - Continue home metoprolol succinate 12.5mg b.i.d. - Continue holding home medications: isosorbide mononitrate, ranolazine, lisinopril, and ASA - Lasix as above - Strict I&Os, daily weights Severe Protein-Calorie Malnutrition -- patient gradually improving with PO intake - Nutrition consulted. Appreciate their assistance and recommendations. 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 Required brief ICU stay. Please see detail maker and fitter notes for further details. - Reconsulted vascular surgery for post-op evaluation as patient is still hospitalized (dishesence, necrosis) - At this point would treat the open area conservatively - May need more resection of his femur, but is high risk (previous intraop cardiac arrest) - Wound care re-consulted for further recommendations, management - Dispositional planning as above Resolved Problems Episode of Atrial Fibrillation - resolved PNA: s/p 14-day course of cefepime Electrolyte Disturbances (K, Na, Mg): Repleted. KCl 40mEq/day. Chronic Medical Problems: HLD: Holding home atorvastatin HTN: Holding home isosorbide mononitrate, HCTZ, lisinopril CODE STATUS: DNR/DNI FEN/GI: Heart healthy, low-sodium diet DVT prophylaxis: Warfarin for PEs, as above Dispo: Med/surg. Please see above. Attempting for inpatient rehabilitation if possible Admission and Anticipated Discharge Date Admission Date: June 11, 2020 Supervising Physician Co-Signing Physician Notes Resident Physician Supervision Note: I independently interviewed and examined the patient and verified the flynn history and physical, reviewed labs and image studies, discussed the case with the resident Dr. Worley and agree with the findings and care plan. Wound care nurse reported concern about the decubitus wound and recommended surgical evaluation - surgery consulted. Subjective No acute events overnight. At the bedside this morning, patient reports feeling well. Says breathing is about the same, still much improved from previous. Says that his new flutter valve is much more manageable compared to his last one. Says his pain is generally well under control throughout the day, and is very manageable, however at nighttime for he goes to bed does get significantly worse. Says that small dose of Dilaudid helped significantly with nighttime pain. Eager to participate in physical therapy more. Review of Systems Review of Systems: As per HPI Physical Exam Constitutional: Generally, well-appearing 75-year-old male who is sitting back in his hospital bed interacting with his guards upon my arrival. He is freely conversive with his baseline level of humor. No acute distress. Respiratory: Good respiratory effort with symmetric expansion of the chest. Lungs are clear to auscultation bilaterally without crackles or wheezes. Chest (Breasts): Additional Comments: Normal rate and regular rhythm. S1 and S2 are present without murmurs rubs or gallops. Skin: Left AKA stump wrapped in gauze, which are c/d/i Results & Data Results & Data ([facility]) Vital Signs (Past 12 Hours) Vital Signs Temp Pulse Resp BP Pulse Ox 07/11/20 07:45 89 18 95 07/11/20 07:40 36.5 C 89 17 111/73 92 07/10/20 23:09 36.8 C 108 H 17 107/68 97 (1) Pneumonia Laterality: right Lung location: lower lobe of lung Pneumonia type: due to unspecified organism Qualified Code(s): J18.9 - Pneumonia, unspecified organism
[2020-07-11] MEDS: IBUPROFEN 600 MG TAB PO PRN (12:11)
[2020-07-11] MEDS ORDERED: HYDROmorphone INJ 0.5 MG/0.5 ML SYR IV STA (13:37)
[2020-07-11] MEDS ORDERED: MoRPHine SULFATE 4 MG/ML 1 ML CARP\\VIAL IV STA (14:59)
--- NOTE | 2020-07-11 15:05 | Surgery Consultation ---
Date of Consultation July 11, 2020 Assessment & Plan (1) Buttock wound: Patient declined exam stating his dressings were already changed today and he has just gotten comfortable within the past 20 minutes. We will coordinate with wound care tomorrow to examine during his dressing change. Coumadin will need to be held if debridement is necessary. Supervising Physician Co-Signing Physician Notes Patient seen and examined, agree with above. Patient has had a prolonged hospital stay with pneumonia, sepsis, ischemic right leg requiring above-knee amputation. During his stay he has developed sacral decubitus ulcer that is been followed by wound care. Surgery was asked to evaluate for possible surgical debridement. The patient is on Coumadin for bilateral PEs and would require therapeutic heparin bridging. On exam he is afebrile and thin appearing with normal vitals. He is right [id number] amputation with dressing in place. He asked us not to examine him today as he had just gotten comfortable in the past 20 minutes and was the first time in a while he has not had any pain. We will try to coordinate with wound care nurse tomorrow. If the patient does require surgery he would need to have his Coumadin held. He also would need a preoperative anesthesia evaluation as he did have a period of asystole requiring AED and epinephrine during his amputation. The debridement would require him to be prone which is require general anesthesia. He is quite a high risk for surgery. Further updates to follow. Surgery will continue to follow, call questions concerns History of Present Illness Attending Physician: Eli Ladd MD History of Present Illness 75 y/o male admitted 1 month ago for RLE ischemia and underwent AKA. During the procedure he had cardiac arrest, brief CPR, and recovered in ICU. He is now nearing discharge to rehab and has pressure wound of the right buttock which wound care has been following and asked for surgery to eval. He is also on coumadin for bilat PEs. Allergies Allergy/AdvReac Type Severity Reaction Status Date / Time clindamycin Allergy Unknown Unknown Verified 06/11/20 20:20 Penicillins Allergy Unknown Unknown Verified 06/11/20 20:20 Home Medications Medication Instructions Recorded Confirmed Type aspirin 81 mg tablet,delayed 81 mg PO DAILY 05/26/19 06/11/20 History release atorvastatin 40 mg tablet 40 mg PO HS 05/26/19 06/11/20 History ciclesonide 160 mcg/actuation 2 puffs INH BID 05/26/19 06/11/20 History aerosol inhaler hydrochlorothiazide 12.5 mg tablet 12.5 mg PO DAILY 05/26/19 06/11/20 History isosorbide mononitrate 30 mg 30 mg PO DAILY 05/26/19 06/11/20 History tablet,extended release 24 hr lisinopril 5 mg tablet 5 mg PO DAILY 05/26/19 06/11/20 History metoprolol succinate 25 mg 12.5 mg PO BID 05/26/19 06/11/20 History tablet,extended release 24 hr montelukast 10 mg tablet 10 mg PO DAILY 05/26/19 06/11/20 History nitroglycerin 0.4 mg sublingual 0.4 mg SL DAILY PRN 05/26/19 06/11/20 History tablet prednisone 5 mg tablet 5 mg PO BID 05/26/19 06/11/20 History ranolazine 500 mg tablet,extended 500 mg PO BID 05/26/19 06/11/20 History release,12 hr umeclidinium 62.5 mcg-vilanterol 1 puffs INH DAILY 05/26/19 06/11/20 History 25 mcg/actuation powdr for inhalation diclofenac sodium [Voltaren] 50 mg PO BID 06/11/20 06/11/20 History levalbuterol tartrate [Xopenex HFA] 2 inh INHALATION QID PRN 06/11/20 06/11/20 History Patient History Medical History AAA (abdominal aortic aneurysm) CAD (coronary artery disease) Cardiomyopathy, ischemic CHF (congestive heart failure) Chronic steroid use COPD (chronic obstructive pulmonary disease) Critical lower limb ischemia Dyslipidemia Emphysema of lung History of [place] (myocardial infarction) Ischemia of right lower extremity Peripheral vascular disease Tobacco abuse Surgical History History of percutaneous coronary intervention Hx of cardiac catheterization Family History Other Family history non-contributory Social History Smoking Status: Unknown if ever smoked Tobacco Type: Cigarettes Age Started Using Tobacco: 18; packs per day: 1; Number of Years Since Quit: 2; Hx Alcohol Use: No Hx Substance Use: No Preferred Language: Mauritanian Communication Ability: Effective Carver Hand Required: No marital status: / Current Living Situation: Other Current Living Situation Comment: [facility] How many Children do You have: 1 Feels Safe at Home: Yes Assistive Devices: Walker Physical Exam Physical Exam: declined by patient at this time Results & Data ([facility]) Vital Signs (Past 12 Hours) Vital Signs Temp Pulse Resp BP BP Pulse Ox 07/11/20 14:44 36.5 C 92 H 18 110/70 98 07/11/20 07:45 89 18 95 07/11/20 07:40 36.5 C 89 17 111/73 92 PG Care Time/CCT Total # of Minutes Spent Total Time Spent with Patient: Total time spent is greater than 50% in coordination of care (as documented) at patient's floor/unit and/or counseling patient: Coding Level of Care Code 25854 Inpt Consult Level 2 Diagnoses Buttock wound S31.809A
[2020-07-11] MEDS: WARFARIN SOD 2 MG TAB PO SCH (17:00)
[2020-07-11] MEDS: GABAPENTIN 100 MG CAP PO SCH (21:15)
[2020-07-12] MEDS: HYDROmorphone INJ 0.5 MG/0.5 ML SYR IV PRN ×2 (01:35→16:47)
[2020-07-12] MEDS: MoRPHine SULFATE 2 MG/ML CARP IV PRN ×4 (04:22→20:45)
[2020-07-12] MEDS: ALBUT/IPRATROP 3MG/0.5MG NEB 3 ML VIAL NEB SCH ×2 (08:15→19:31)
[2020-07-12] MEDS: CETIRIZINE HCL 10 MG TABLET PO SCH (08:59)
[2020-07-12] MEDS: predniSONE 5 MG TAB PO SCH ×2 (09:00→20:36)
[2020-07-12] MEDS: guaiFENesin 600 MG TABCR PO SCH ×2 (09:00→20:35)
[2020-07-12] MEDS: METOPROLOL SUCC 25MG EXT REL TAB PO SCH ×2 (09:00→20:36)
[2020-07-12] MEDS: FUROSEMIDE 40 MG TAB PO SCH (09:00)
[2020-07-12] MEDS: POTASSIUM CHLORIDE 20 MEQ/15 ML UDC PO SCH (09:01)
[2020-07-12] MEDS: SENNA 8.6 MG TAB PO SCH (09:01)
[2020-07-12] MEDS: LIDOCAINE 5% 1 PATCH TD SCH (09:03)
[2020-07-12] MEDS: UMECLIDINIUM BROMIDE 62.5MCG/BLISTER 7 PUFFS/INHALER INH SCH (09:03)
[2020-07-12] MEDS: FLUTICASONE/VILANTEROL 100/25MCG 14 PUFFS/INHALER INH SCH (09:03)
--- NOTE | 2020-07-12 10:09 | Surgery Progress Note ---
Date of Service July 12, 2020 Assessment & Plan (1) Buttock wound: Would require debridement in OR likely in prone position. Will ask anesthesia to evaluate given recent cardiac arrest during amputation. Given that coumadin will also be held, would plan procedure for early next week. Admission and Anticipated Discharge Date Admission Date: June 11, 2020 Supervising Physician Co-Signing Physician Notes Patient seen and examined, agree with above. Admitted with pneumonia, sepsis, and ischemic limb requiring right [id number] amputation. He has a large sacral decubitus ulcer along with a small ischial tuberosity ulcer on the right. There is a thick eschar overlying the wound and it is unstageable at this time. It will require surgical debridement. He is currently on Coumadin for PEs and has an INR that is therapeutic. He will need to be transitioned off of Coumadin and placed on either Lovenox or heparin. We will plan for debridement in the operating room. He did have a complicated history during his last surgery where he went asystolic and required epinephrine and CPR. We will have anesthesia consult to see whether he is a suitable candidate for surgery at this facility, especially given the fact that he will need to be prone for our surgery and under general anesthesia. Vascular is considering revising his remnant at the same time. Subjective no new c/o Physical Exam Skin: + wound (large eschar invloving most of right buttock ) Results & Data ([facility]) Vital Signs (Past 12 Hours) Vital Signs Temp Pulse Resp BP Pulse Ox 07/12/20 08:16 85 100 07/12/20 07:01 36.7 C 87 16 113/70 100 PG Care Time/CCT Total # of Minutes Spent Total Time Spent with Patient: Total time spent is greater than 50% in coordination of care (as documented) at patient's floor/unit and/or counseling patient: Coding Level of Care Code 10063 Subseq Hosp Care Lvl 1 Diagnoses Buttock wound S31.809A
--- NOTE | 2020-07-12 10:11 | Hospitalist Progress Note ---
Date of Service July 12, 2020 Assessment & Plan (1) Pneumonia: Sukhjinder Lomeli is a 75-year-old male with past medical history significant for CAD, HTN, HLD, extensive smoking history and COPD, hemorrhoids admitted for severe sepsis with acute hypoxic respiratory failure, with initial complaint of RLE pain with findings consistent with critical limb ischemia (now s/p AKA). The ladder part of his hospital course has been focused on optimization of his AHRF, which seems multifactorial in etiology: end-stage COPD, bilateral PEs, pulmonary edema, and PNA. Eschar Wound on Buttock -- Surgery, WOCN following - Surgery consulted for possible surgical debridement at recommendation of WOCN - Needs surgical debridement - Anesthesia to perform preoperative assessment given patient's high-risk status and likely need for general anesthesia - If/when intervention pursued --> transition off Coumadin to heparin or lovenox - Anticipate AKA debridement at same time - Continue wound care recommendations per WOCN in interim - Pain control: Acetaminophen, Motrin > Morphine 2mg q4h PRN > Dilaudid 0.5 for breakthrough Critical RLE Ischemia, s/p AKA, now with Wound Dishiscence/Necrosis -- Vascular surgery following - Note: Patient did go into cardiac arrest prior to procedure and was subsequently resuscitated in the OR. Required brief ICU stay. - Reconsulted vascular surgery given dehiscence, necrosis - Treat area conservatively for now - If eschar debridement by general surgery, anticipate AKA wound debridement at same time - Continue wound care recommendations per WOCN in interim - Wound cultured, await results - Continue PT - Inpatient rehab preferred at discharge - Will require orthotic fitting after discharge Acute Hypoxemic Respiratory Failure - gradually improving; now on NC, O2 requirements seems to have plateaued between 3-5Lpm on NC - Multifactorial including pneumonia, COPD with significant tobacco use ( > 55 pack-year history), bilateral PE, pulmonary edema/effusions, previous PNA (resolved) - Significantly improved O2 requirement and work of breathing from prior (plateaued now at ~2-5Lpm NC) - Pulmonology consulted earlier in course, appreciate insight and recommendations: - Goal SpO2: 88-92% - Continue diuretics to maintain negative I&O balance - Pain control (e.g., Morphine) added to aid with pain that is preventing cough / expectorant removal - Vibratory vest PRN Bilateral Pulmonary Emboli - Noted on CT-A 02/22. No DVT. - Previously on Eliquis, bridged to Warfarin - Continue Warfarin 2mg PO daily - INR Goal 2-3 - INR q.o.d. while here End-stage COPD/Emphysema with Cor Pulmonale - Gold Class D (with >55 pack-year history) - Continue home prednisone (5mg b.i.d.) - Continue Breo, Incruse inhalers daily - Continue Mucinex and Zyrtec daily Pulmonary Edema and Effusions -- Likely from resolving LV function in setting of PNA, PEs, and severe hypoalbuminemia - Small b/l pleural effusions persisting throughout multiple imaging studies - Continue daily furosemide 40mg PO daily - As below - HFrEF Chronic HFrEF, CAD -- tolerating furosemide 40mg PO daily well, renal function stable - Hx of [place] approximately 4 years ago (attempted PCI, vessel ruptured, PCI aborted) - TTE 06/28 LV sys fxn normal (55-60%), RV systolic pressure is elevated at 40- 50mmHg (improved from 06/12) - Continue home metoprolol succinate 12.5mg b.i.d. - Continue holding home medications: isosorbide mononitrate, ranolazine, lisinopril, and ASA - Lasix as above - Strict I&Os, daily weights Severe Protein-Calorie Malnutrition -- patient gradually improving with PO intake - Nutrition consulted. Appreciate their assistance and recommendations. - Continue 2gNa, heart healthy diet with soft/bite-sized consistency - Continue Boost TID - Severe hypoalbuminemia on daily labs Dispositional Planning - Patient will be in need of the following as they prepare to transition out of the hospital and back into correctional services VS. inpatient rehabilitation. Case management actively assisting: - Regular PT, OT - Orthotics to aid with prosthetic obtainment - Flutter valve and, if available, vibratory vest - Inhalers. Warfarin with PT, INR checks - Labs draws if needed - Godoy care / management - O2 management: 3-5Lpm NC upon d/c - Ability to provide wound care for stump, lower buttock wound -Patient was excepted for inpatient rehabilitation; however, must first address/create plan for eschar and stump wound. CM aware, following. Resolved Problems Episode of Atrial Fibrillation - resolved PNA: s/p 14-day course of cefepime Electrolyte Disturbances (K, Na, Mg): Repleted. KCl 40mEq/day Thrombocytopenia: 2/2 malnutrition, phlebotomy, wound Chronic Medical Problems: HLD: Holding home atorvastatin HTN: Holding home isosorbide mononitrate, HCTZ, lisinopril CODE STATUS: DNR/DNI FEN/GI: Heart healthy, low-sodium diet DVT prophylaxis: Warfarin for PEs, as above Dispo: Med/surg. Please see above; anticipate d/c to inpatient rehabilitation when appropriate. Admission and Anticipated Discharge Date Admission Date: June 11, 2020 Supervising Physician Co-Signing Physician Notes Resident Physician Supervision Note: I independently interviewed and examined the patient and verified the flynn history and physical, reviewed labs and image studies, discussed the case with the resident Dr. Worley and agree with the findings and care plan. Subjective No acute events overnight. At the bedside this morning, patient actually reports feeling pretty well. Says that breathing is good. Pain is ongoing, but managed at present. We discussed the surgical consult that occurred yesterday. He noted that while he certainly wants the buttock wounds fixed, he does not want any surgical intervention that may require general anesthesiahe cites his own high risk state given his previous intraoperative cardiac arrest, as well as his other medical comorbidities that are being managed right now. He is open to further discussions between wound care, surgery, and his primary team for interventional planning. He has no other concerns this morning. Review of Systems Review of Systems: As per HPI Physical Exam Constitutional: Overall, well-appearing 75-year-old gentleman who is sitting back in his hospital bed, relaxed upon my entrance into the room. Compared to previous days his color does appear better. He converses freely and without acute distress. Respiratory: Good respiratory effort with symmetric expansion of the chest. Lungs are clear to auscultation bilaterally without crackles or wheezes. Nasal cannula in place. Cardiovascular: Normal rate and regular rhythm. S1 and S2 are present without murmurs rubs or gallops. Gastrointestinal (Abdomen): Normoactive bowel sounds. Abdomen is soft, nontender, nondistended to palpation. Results & Data Results & Data ([facility]) Vital Signs (Past 12 Hours) Vital Signs Temp Pulse Resp BP Pulse Ox 07/12/20 08:16 85 100 07/12/20 07:01 36.7 C 87 16 113/70 100 Resident Activity Tracking Resident Involvement: Resident Care Provided Care Provided: Adult Hospital Medicine (1) Pneumonia Laterality: right Lung location: lower lobe of lung Pneumonia type: due to unspecified organism Qualified Code(s): J18.9 - Pneumonia, unspecified organism
[2020-07-12] MEDS: ACETAMINOPHEN 500 MG TAB PO PRN (10:17)
[2020-07-12] MEDS: IBUPROFEN 600 MG TAB PO PRN (10:17)
--- NOTE | 2020-07-12 10:33 | Communication Note ---
Date of Service: July 12, 2020 Would like to do right AKA stump debridement at the same OR session as his buttock debridement.
[2020-07-12] MEDS: WARFARIN SOD 2 MG TAB PO SCH (16:47)
[2020-07-12] MEDS: GABAPENTIN 100 MG CAP PO SCH (20:35)
[2020-07-13 05:54] LABS: Basophils # (auto) 0.01 K/uL (0-0.2); Basophils % (auto) 0.1 %; Eosinophils # (auto) 0.01 K/uL (0-0.5); Eosinophils % (auto) 0.1 %; Hematocrit (blood only) 23.8 % (42-52); Hemoglobin 7.7 g/dL (14.0-18.0); Immature Granulocytes # (auto) 0.06 K/uL (0.00-0.02); Immature Granulocytes % (auto) 0.7 %; Lymphocytes % (auto) 16.7 %; Mean Corpuscular Hemoglobin 29.1 pg (25-34); Mean Corpuscular Hgb Conc 32.4 g/dL (32-36); Mean Corpuscular Volume 89.8 fL (80-100); Mean Platelet Volume 12.1 fL (7.4-10.4); Monocytes % (auto) 11.2 %; Neutrophils # (auto) 6.38 K/uL (1.4-6.5); Neutrophils % (auto) 71.2 %; Platelet Count 303 K/uL (130-400); RDW Coefficient of Variation 15.3 % (11.5-14.5); RDW Standard Deviation 49.6 fL (36.4-46.3); Red Blood Count 2.65 M/uL (4.7-6.1); White Blood Count 8.96 K/uL (4.8-10.8)
[2020-07-13 05:57] LABS: INR 2.4 (0.9-1.1); Prothrombin Time 22.4 Seconds (9.0-12.0)
[2020-07-13] MEDS: MoRPHine SULFATE 2 MG/ML CARP IV PRN ×3 (06:06→23:59)
[2020-07-13 06:23] LABS: RBC Morphology Unremarkable
[2020-07-13 06:25] LABS: Albumin Globulin Ratio 0.4 (0.9-2); Albumin Level 1.8 gm/dl (3.4-5.0); BUN Creatinine Ratio 25.1 (10-20); Bilirubin,Total 0.6 mg/dl (0.2-1); Calcium 7.7 mg/dl (8.5-10.1); Creatinine Clr Calc Pharmacy 88.5 ml/min; Est GFR (African American) 123.6; Est GFR (Non-African American) 106.6; Globulin 4.3 gm/dl (2.5-4.0); Potassium 3.8 mmol/L (3.5-5.1); Total Protein 6.1 gm/dl (6.4-8.2)
[2020-07-13] MEDS: FLUTICASONE/VILANTEROL 100/25MCG 14 PUFFS/INHALER INH SCH (07:40)
[2020-07-13] MEDS: UMECLIDINIUM BROMIDE 62.5MCG/BLISTER 7 PUFFS/INHALER INH SCH (07:41)
[2020-07-13] MEDS: POTASSIUM CHLORIDE 20 MEQ/15 ML UDC PO SCH (07:41)
[2020-07-13] MEDS: guaiFENesin 600 MG TABCR PO SCH ×2 (07:42→20:27)
[2020-07-13] MEDS: METOPROLOL SUCC 25MG EXT REL TAB PO SCH ×2 (07:42→20:27)
[2020-07-13] MEDS: ACETAMINOPHEN 500 MG TAB PO PRN (07:42)
[2020-07-13] MEDS: CETIRIZINE HCL 10 MG TABLET PO SCH (07:43)
[2020-07-13] MEDS: FUROSEMIDE 40 MG TAB PO SCH (07:43)
[2020-07-13] MEDS: predniSONE 5 MG TAB PO SCH ×2 (07:43→20:27)
[2020-07-13] MEDS: LIDOCAINE 5% 1 PATCH TD SCH (07:43)
[2020-07-13] MEDS: SENNA 8.6 MG TAB PO SCH (07:45)
[2020-07-13] MEDS: ALBUT/IPRATROP 3MG/0.5MG NEB 3 ML VIAL NEB SCH (07:49)
--- NOTE | 2020-07-13 10:52 | Hospitalist Progress Note ---
Date of Service July 13, 2020 Assessment & Plan (1) Pneumonia: Sukhjinder Lomeli is a 75-year-old male with past medical history significant for CAD, HTN, HLD, extensive smoking history and COPD, hemorrhoids admitted for severe sepsis with acute hypoxic respiratory failure, with initial complaint of RLE pain with findings consistent with critical limb ischemia (now s/p AKA). The ladder part of his hospital course has been focused on optimization of his AHRF, which seems multifactorial in etiology: end-stage COPD, bilateral PEs, pulmonary edema, and PNA. Mr. Lomeli has also developed a large eschar wound on his buttock, as well as dishisence and necrosis of his stump wound - which are now both being followed by wound care and surgery for further interventional planning. He remains hemodynamically stable. Eschar Wound on Buttock -- Surgery, WOCN following; Pain adequate throughout today - Surgery consulted for possible surgical debridement at recommendation of WOCN - Needs surgical debridement -- anticipate 07/17 as possible date - Anesthesia to perform preoperative assessment given patient's high-risk status and likely need for general anesthesia - Anticipate AKA debridement at same time - Continue wound care recommendations per WOCN in interim - Stop Warfarin --> INR q12h beginning 12 in AM; once INR < 2, start Hep gtt - Pain control: Acetaminophen 1000mg q8h LIZETT, Toradol PRN > Morphine 2mg q4h PRN > Dilaudid 0.5 for breakthrough Critical RLE Ischemia, s/p AKA, now with Wound Dehiscence/Necrosis -- Vascular surgery following - Note: Patient did go into cardiac arrest prior to procedure and was subsequently resuscitated in the OR. Required brief ICU stay. - Reconsulted vascular surgery given dehiscence, necrosis - Treat area conservatively for now - If eschar debridement by general surgery, anticipate AKA wound debridement at same time - Continue wound care recommendations per WOCN in interim - Wound cultured, await results - Continue PT - Inpatient rehab preferred at discharge - Will require orthotic fitting after discharge Acute Hypoxemic Respiratory Failure - gradually improving; now on NC, O2 requirements seems to have plateaued between 3-4Lpm on NC - Multifactorial including pneumonia, COPD with significant tobacco use ( > 55 pack-year history), bilateral PE, pulmonary edema/effusions, previous PNA (resolved) - Significantly improved O2 requirement and work of breathing from prior (plateaued now at ~2-5Lpm NC) - Pulmonology consulted earlier in course, appreciate insight and recommendations: - Goal SpO2: 88-92% - Continue diuretics to maintain negative I&O balance - Pain control (e.g., Morphine) added to aid with pain that is preventing cough / expectorant removal - Vibratory vest PRN Bilateral Pulmonary Emboli - Noted on CT-A 06/26. No DVT. - INR Goal 2-3 - As above: Stop Warfarin d/t possible Procedure. 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 (with >55 pack-year history) - Continue home prednisone (5mg b.i.d.) - Continue Breo, Incruse inhalers daily - Continue Mucinex and Zyrtec daily - Discontinue DuoNebs Pulmonary Edema and Effusions -- Likely from resolving LV function in setting of PNA, PEs, and severe hypoalbuminemia - Small b/l pleural effusions persisting throughout multiple imaging studies - Continue daily furosemide 40mg PO daily - As below - HFrEF Chronic HFrEF, CAD -- tolerating furosemide 40mg PO daily well, renal function stable - Hx of [place] approximately 4 years ago (attempted PCI, vessel ruptured, PCI aborted) - TTE 06/28 LV sys fxn normal (55-60%), RV systolic pressure is elevated at 40- 50mmHg (improved from 06/12) - Continue home metoprolol succinate 12.5mg b.i.d. - Continue holding home medications: isosorbide mononitrate, ranolazine, lisinopril, and ASA - Lasix as above - Strict I&Os, daily weights Severe Protein-Calorie Malnutrition -- patient gradually improving with PO intake - Nutrition consulted. Appreciate their assistance and recommendations. - Continue 2gNa, heart healthy diet with soft/bite-sized consistency - Continue Boost TID - Severe hypoalbuminemia on daily labs Dispositional Planning - Patient will be in need of the following as they prepare to transition out of the hospital and back into correctional services VS. inpatient rehabilitation. Case management actively assisting: - Regular PT, OT - Orthotics to aid with prosthetic obtainment - Flutter valve and, if available, vibratory vest - Inhalers. Warfarin with PT, INR checks - Labs draws if needed - [place] care / management - O2 management: 3-5Lpm NC upon d/c - Ability to provide wound care for stump, lower buttock wound -Patient was excepted for inpatient rehabilitation; however, must first address/create plan for eschar and stump wound. CM aware, following. Resolved Problems Episode of Atrial Fibrillation - resolved PNA: s/p 14-day course of cefepime Electrolyte Disturbances (K, Na, Mg): Repleted. KCl 40mEq/day Thrombocytopenia: 2/2 malnutrition, phlebotomy, wound Chronic Medical Problems: HLD: Holding home atorvastatin HTN: Holding home isosorbide mononitrate, HCTZ, lisinopril CODE STATUS: DNR/DNI FEN/GI: Heart healthy, low-sodium diet DVT prophylaxis: Warfarin for PEs, as above Dispo: Med/surg. Please see above; anticipate d/c to inpatient rehabilitation when appropriate. Admission and Anticipated Discharge Date Admission Date: June 11, 2020 Supervising Physician Co-Signing Physician Notes Resident Physician Supervision Note: I independently interviewed and examined the patient and verified the flynn history and physical, reviewed labs and image studies, discussed the case with the resident Dr. Worley and agree with the findings and care plan. Subjective NAEO. Feeling OK this morning. Pain better because just got morphine -- breathing at baseline. Does feel that while his breathing is still significantly better than what it was, still gets easily short of breath. Anxious about plans moving forward -- i.e., procedural. Given the events of his last operation, he is worried that if he goes under anesthesia, he may do poorly. He does wish to continue regaining strength with PT and is eager to participate. No chest pain. No palpitations. Review of Systems Review of Systems: as per HPI Physical Exam Constitutional: Tired appearing 75yoM who is lying back in his hospital bed, relaxed and awake, upon my arrival. Freely conversive. NAD. Respiratory: Good respiratory effort with symmetric expansion of the chest. NC in place. Lungs CTAB without crackles or wheezes. Cardiovascular: NRRR. S1/S2 present without m/r/g. Gastrointestinal (Abdomen): normal bowel sounds, soft, nontender, no hepatosplenomegaly Results & Data Results & Data ([facility]) Vital Signs (Past 12 Hours) Vital Signs Temp Pulse Pulse Pulse Resp BP Pulse Ox 07/13/20 07:53 99 H 18 91 07/13/20 07:33 36.6 C 98 H 98 H 20 127/77 91 07/12/20 22:56 37.3 C 96 H 16 104/65 96 Resident Activity Tracking Resident Involvement: Resident Care Provided Care Provided: Adult Hospital Medicine (1) Pneumonia Laterality: right Lung location: lower lobe of lung Pneumonia type: due to unspecified organism Qualified Code(s): J18.9 - Pneumonia, unspecified organism
[2020-07-13] MEDS ORDERED: HYDROmorphone INJ 0.5 MG/0.5 ML SYR IV STA (11:02)
[2020-07-13] MEDS: KETOROLAC TROMETHAMINE 15 MG/ML VIAL IM PRN ×2 (13:53→20:40)
[2020-07-13] MEDS: ACETAMINOPHEN 500 MG TAB PO SCH ×2 (13:53→20:28)
[2020-07-13] MEDS ORDERED: HEPARIN SODIUM/DEXTROSE 25,000 UNITS/500 ML BAG IV SCH (17:00)
[2020-07-13] MEDS: WARFARIN SOD 2 MG TAB PO SCH (17:03)
[2020-07-13 19:26] LABS: Basophils # (auto) 0.02 K/uL (0-0.2); Basophils % (auto) 0.2 %; Eosinophils # (auto) 0.03 K/uL (0-0.5); Eosinophils % (auto) 0.3 %; Hematocrit (blood only) 23.3 % (42-52); Hemoglobin 7.5 g/dL (14.0-18.0); Immature Granulocytes # (auto) 0.06 K/uL (0.00-0.02); Immature Granulocytes % (auto) 0.7 %; Lymphocytes # (auto) 1.61 K/uL (1.2-3.4); Lymphocytes % (auto) 17.8 %; Mean Platelet Volume 11.8 fL (7.4-10.4); Monocytes # (auto) 1.34 K/uL (0.11-0.59); Monocytes % (auto) 14.8 %; Neutrophils # (auto) 5.97 K/uL (1.4-6.5); Neutrophils % (auto) 66.2 %; Platelet Count 279 K/uL (130-400); RDW Coefficient of Variation 15.3 % (11.5-14.5); RDW Standard Deviation 49.6 fL (36.4-46.3); Red Blood Count 2.59 M/uL (4.7-6.1); White Blood Count 9.03 K/uL (4.8-10.8)
[2020-07-13 19:51] LABS: INR 2.4 (0.9-1.1); Partial Thromboplastin Ratio 1.8
[2020-07-13 19:57] LABS: Partial Thromboplastin Time 48.6 Seconds (21.0-31.0)
[2020-07-13 20:08] LABS: Hypochromasia Present; Mean Corpuscular Hgb Conc 32.2 g/dL (32-36); Polychromasia 1+
[2020-07-13] MEDS: HYDROmorphone INJ 0.5 MG/0.5 ML SYR IV PRN ×2 (21:28)
[2020-07-14] MEDS: KETOROLAC TROMETHAMINE 15 MG/ML VIAL IM PRN ×2 (02:42→09:15)
[2020-07-14] MEDS: ACETAMINOPHEN 500 MG TAB PO SCH ×3 (05:30→20:33)
[2020-07-14 06:31] LABS: Partial Thromboplastin Ratio 1.8
[2020-07-14 06:34] LABS: Partial Thromboplastin Time 46.1 Seconds (21.0-31.0)
[2020-07-14] MEDS: UMECLIDINIUM BROMIDE 62.5MCG/BLISTER 7 PUFFS/INHALER INH SCH (07:53)
[2020-07-14] MEDS: FLUTICASONE/VILANTEROL 100/25MCG 14 PUFFS/INHALER INH SCH (07:54)
[2020-07-14] MEDS: METOPROLOL SUCC 25MG EXT REL TAB PO SCH ×2 (07:54→20:32)
[2020-07-14] MEDS: POTASSIUM CHLORIDE 20 MEQ/15 ML UDC PO SCH (07:54)
[2020-07-14] MEDS: MoRPHine SULFATE 2 MG/ML CARP IV PRN (07:54)
[2020-07-14] MEDS: CETIRIZINE HCL 10 MG TABLET PO SCH (07:55)
[2020-07-14] MEDS: FUROSEMIDE 40 MG TAB PO SCH (07:55)
[2020-07-14] MEDS: LIDOCAINE 5% 1 PATCH TD SCH (07:55)
[2020-07-14] MEDS: predniSONE 5 MG TAB PO SCH ×2 (07:55→20:32)
[2020-07-14] MEDS: SENNA 8.6 MG TAB PO SCH (07:55)
[2020-07-14] MEDS: guaiFENesin 600 MG TABCR PO SCH ×2 (07:55→20:31)
--- NOTE | 2020-07-14 09:51 | Anesthesiology Consultation ---
Date of Service July 14, 2020 Assessment & Plan Chart Review Chart Review: Acceptable Risk for Surgery and Patient NOT seen in Pre Admission Testing pt was taken for an emergent case 06/13/20 for a lower leg amputation. Pt expereinced a brief code ~ 3min that involved chest compression. The code was felt to be related to his acidosis. Pt was AAOx3 in the ICU ~ 2 hours later. Pt is high risk for any surgery. Pt does require debriedment of two wounds. Pt is ok to proceed to the OR is optimized from a medical stand point. History Surgery Operation Date: 06/16/20 14:00 Proposed Procedures p Right Above Knee Amputation - Arnulfo Her MD Operation Date: 07/17/20 07:00 Proposed Procedures p Sacral Decubitus Ulcer Debridement - Jack Mayers DO, FACS s Right Stump Revision - Arnulfo Her MD Height/Weight Height: 5 ft 7 in Weight: 48.5 kg Allergies Allergy/AdvReac Type Severity Reaction Status Date / Time clindamycin Allergy Unknown Unknown Verified 06/11/20 20:20 Penicillins Allergy Unknown Unknown Verified 06/11/20 20:20 Medications Home Medications Medication Instructions Recorded Confirmed Last Taken aspirin 81 mg tablet,delayed 81 mg PO DAILY 05/26/19 06/11/20 Unknown release atorvastatin 40 mg tablet 40 mg PO HS 05/26/19 06/11/20 Unknown ciclesonide 160 mcg/actuation 2 puffs INH BID 05/26/19 06/11/20 Unknown aerosol inhaler hydrochlorothiazide 12.5 mg tablet 12.5 mg PO DAILY 05/26/19 06/11/20 Unknown isosorbide mononitrate 30 mg 30 mg PO DAILY 05/26/19 06/11/20 Unknown tablet,extended release 24 hr lisinopril 5 mg tablet 5 mg PO DAILY 05/26/19 06/11/20 Unknown metoprolol succinate 25 mg 12.5 mg PO BID 05/26/19 06/11/20 Unknown tablet,extended release 24 hr montelukast 10 mg tablet 10 mg PO DAILY 05/26/19 06/11/20 Unknown nitroglycerin 0.4 mg sublingual 0.4 mg SL DAILY PRN 05/26/19 06/11/20 Unknown tablet prednisone 5 mg tablet 5 mg PO BID 05/26/19 06/11/20 Unknown ranolazine 500 mg tablet,extended 500 mg PO BID 05/26/19 06/11/20 Unknown release,12 hr umeclidinium 62.5 mcg-vilanterol 1 puffs INH DAILY 05/26/19 06/11/20 Unknown 25 mcg/actuation powdr for inhalation diclofenac sodium [Voltaren] 50 mg PO BID 06/11/20 06/11/20 Unknown levalbuterol tartrate [Xopenex HFA] 2 inh INHALATION QID PRN 06/11/20 06/11/20 Unknown Active Medications Generic Name Dose Route Start Last Admin Trade Name Freq PRN Reason Stop Dose Admin Acetaminophen 1,000 mg 07/13/20 14:00 07/14/20 05:30 Acetaminophen 500 Mg Tab PO 08/12/20 13:59 1,000 mg Q8 LIZETT Administration Cetirizine HCl 10 mg 06/18/20 09:00 07/14/20 07:55 Cetirizine Hcl 10 Mg Tablet PO 07/18/20 08:59 10 mg QAM LIZETT Administration Fluticasone/Vilanterol 1 puffs 06/26/20 09:00 07/14/20 07:54 Fluticasone/Vilanterol 100/25mcg 14 Puffs/Inhaler INH 07/26/20 08:59 1 puffs DAILY LIZETT Administration Furosemide 40 mg 07/05/20 09:00 07/14/20 07:55 Furosemide 40 Mg Tab PO 08/04/20 08:59 40 mg QAM LIZETT Administration Guaifenesin 1,200 mg 06/28/20 21:00 07/14/20 07:55 Guaifenesin 600 Mg Tabcr PO 07/28/20 20:59 1,200 mg Q12 LIZETT Administration Heparin Sodium (Beef Lung) 5 ml 06/23/20 08:39 07/14/20 09:15 Heparin 10 Unit/Ml 5 Ml Flush FLUSH 07/23/20 08:38 5 ml PRN PRN Administration Flush Hydromorphone HCl 0.5 mg 07/11/20 08:34 07/13/20 21:28 Hydromorphone Inj 0.5 Mg/0.5 Ml Syr IV 07/25/20 08:33 0.5 mg HS PRN Administration Pain at night / bedtime Ketorolac Tromethamine 15 mg 07/13/20 12:27 07/14/20 09:15 Ketorolac Tromethamine 15 Mg/Ml Vial IM 07/18/20 12:26 15 mg Q6H PRN Administration Pain Lidocaine 1 patch 06/24/20 16:00 07/14/20 07:55 Lidocaine 5% 1 Patch TD 07/24/20 15:59 1 patch QAM LIZETT Administration Metoprolol Succinate 12.5 mg 07/10/20 21:00 07/14/20 07:54 Metoprolol Succ 25mg Ext Rel Tab PO 08/09/20 20:59 12.5 mg BID LIZETT Administration Miscellaneous 1 ea 06/24/20 21:00 07/13/20 20:27 Remove Lidoderm Patch N/A 07/24/20 20:59 1 ea DAILY@2100 LIZETT Administration Morphine Sulfate 2 mg 07/05/20 17:40 07/14/20 07:54 Morphine Sulfate 2 Mg/Ml Carp IV 07/19/20 17:39 2 mg Q4HWA PRN Administration Chest Pain Potassium Chloride 40 meq 06/29/20 09:00 07/14/20 07:54 Potassium Chloride 20 Meq/15 Ml Udc PO 07/29/20 08:59 40 meq QAM LIZETT Administration Prednisone 5 mg 07/08/20 21:00 07/14/20 07:55 Prednisone 5 Mg Tab PO 08/07/20 20:59 5 mg BID LIZETT Administration Sennosides 8.6 mg 06/16/20 09:00 07/14/20 07:55 Senna 8.6 Mg Tab PO 07/16/20 08:59 Not Given QAM LIZETT Umeclidinium [place] 1 puffs 06/29/20 09:00 07/14/20 07:53 Umeclidinium [place] 62.5mcg/Blister 7 Puffs/Inhaler INH 07/29/20 08:59 1 puffs DAILY LIZETT Administration NPO Date Last Intake of Fluids: 06/15/20 Time Last Intake of Fluids: 18:30 Date Last Intake of Solids: 06/15/20 Time Last Intake of Solids: 18:30 Past Medical History Medical History AAA (abdominal aortic aneurysm) CAD (coronary artery disease) Cardiomyopathy, ischemic CHF (congestive heart failure) Chronic steroid use COPD (chronic obstructive pulmonary disease) Critical lower limb ischemia Dyslipidemia Emphysema of lung History of MA (myocardial infarction) Ischemia of right lower extremity Peripheral vascular disease Tobacco abuse Past Family History Family History Other Family history non-contributory Past Surgical History Surgical History History of percutaneous coronary intervention Hx of cardiac catheterization Social History Smoking Status: Unknown if ever smoked tobacco type: cigarettes Hx Alcohol Use: No Hx Substance Use: No Physical Exam Vital Signs Last Vital Signs Temp 36.8 C 07/14/20 07:25 Pulse 84 07/14/20 07:25 Resp 16 07/14/20 07:25 BP 113/76 07/14/20 07:25 Pulse Ox 100 07/14/20 07:25 Testing Laboratory Results 07/13/20 19:07 07/13/20 05:10 PT 23.0 Seconds (9.0-12.0) H 07/13/20 19:07 INR 2.4 (0.9-1.1) H 07/13/20 19:07 APTT 46.1 Seconds (21.0-31.0) H* 07/14/20 05:35 Blood Type A Positive 06/15/20 15:57 Antibody Screen NEGATIVE 06/15/20 15:57 07/11/20 11:45 Gram Stain - Final Leg,Right Deep Wound Culture - Final Yeast not Poppy albicans/dub 06/27/20 20:03 Gram Stain - Final Sputum, Expectorated Sputum Culture - Final Moderate normal melissa. 06/11/20 21:49 Aerobic Blood Culture - Final Blood No growth in Aerobic bottle after 5 days. Anaerobic Blood Culture - Final No growth in Anaerobic bottle after 5 days. 06/11/20 19:44 Aerobic Blood Culture - Final Blood No growth in Aerobic bottle after 5 days. Anaerobic Blood Culture - Final No growth in Anaerobic bottle after 5 days.
[2020-07-14] MEDS ORDERED: KETOROLAC TROMETHAMINE 15 MG/ML VIAL IV PRN (13:49)
[2020-07-14 13:50] LABS: INR 2.3 (0.9-1.1); Prothrombin Time 21.8 Seconds (9.0-12.0)
--- NOTE | 2020-07-14 13:53 | Hospitalist Progress Note ---
Date of Service July 14, 2020 Assessment & Plan (1) Pneumonia: Sukhjinder Lomeli is a 75-year-old male with past medical history significant for CAD, HTN, HLD, extensive smoking history and COPD, hemorrhoids admitted for severe sepsis with acute hypoxic respiratory failure, with initial complaint of RLE pain with findings consistent with critical limb ischemia (now s/p AKA). The ladder part of his hospital course has been focused on optimization of his AHRF, which seems multifactorial in etiology: end-stage COPD, bilateral PEs, pulmonary edema, and PNA. Mr. Lomeli has also developed a large eschar wound on his buttock, as well as dehiscence and necrosis of his stump wound - which are now both being followed by wound care and surgery for further interventional planning. He remains hemodynamically stable. Eschar Wound on Buttock -- Surgery, WOCN following; Pain adequate throughout today - Surgery consulted for surgical debridement at recommendation of WOCN - Needs surgical debridement --> scheduled for 07/17 in AM - Anesthesia pre-op assessment: Patient is high risk, but previous arrest likely 2/2 acidosis. OK to proceed given necessary for procedure. - Anticipate AKA debridement at same time - Continue wound care recommendations per WOCN in interim - Stop Warfarin --> INR q12h, once < 2, start Hep gtt - Hold Hep gtt on 07/16 at 0000hr for procedure in AM - Pain control: Acetaminophen 1000mg q8h LIZETT, Toradol 15mg IV q8h LIZETT > Dilaudid 0.5mg IV q8h for breakthrough Critical RLE Ischemia, s/p AKA, now with Wound Dehiscence/Necrosis -- Vascular surgery following - Note: Patient did go into cardiac arrest prior to procedure and was subsequently resuscitated in the OR. Likely d/t acidosis. Required brief ICU stay. - Reconsulted vascular surgery given dehiscence, necrosis - Treat area conservatively until procedure - Revision procedure 07/17 in AM - Continue wound care recommendations per WOCN in interim - Wound cultured -- growing yeast, not Poppy - Continue PT - Inpatient rehab preferred at discharge - Will require orthotic fitting after discharge Acute Hypoxemic Respiratory Failures - significantly improved; now on 3L NC - Multifactorial including pneumonia, COPD with significant tobacco use ( > 55 pack-year history), bilateral PE, pulmonary edema/effusions, previous PNA (resolved) - Significantly improved O2 requirement and work of breathing from prior (3L from 5L in previous weeks) - Pulmonology consulted earlier in course, appreciate insight and recommendations: - Goal SpO2: 88-92% - Continue diuretics to maintain negative I&O balance - Pain control as above to aid with pain that is preventing cough / expectorant removal - Vibratory vest PRN Bilateral Pulmonary Emboli - Noted on CT-A 06/26. No DVT. - INR Goal 2-3 - As above: Stop Warfarin d/t possible Procedure. 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 (with >55 pack-year history) - Continue home prednisone (5mg b.i.d.) - Continue Breo, Incruse inhalers daily - Continue Mucinex and Zyrtec daily Pulmonary Edema and Effusions -- Likely from resolving LV function in setting of PNA, PEs, and severe hypoalbuminemia - Small b/l pleural effusions persisting throughout multiple imaging studies - Continue daily furosemide 40mg PO daily - As below - HFrEF Chronic HFrEF, CAD -- tolerating furosemide 40mg PO daily well, renal function stable - Hx of [place] approximately 4 years ago (attempted PCI, vessel ruptured, PCI aborted) - TTE 06/28 LV sys fxn normal (55-60%), RV systolic pressure is elevated at 40- 50mmHg (improved from 06/12) - Continue home metoprolol succinate 12.5mg b.i.d. - Continue holding home medications: isosorbide mononitrate, ranolazine, lisinopril, and ASA - Lasix as above - Strict I&Os, daily weights Severe Protein-Calorie Malnutrition -- patient gradually improving with PO intake - Nutrition consulted earlier in course - Continue 2gNa, heart healthy diet with soft/bite-sized consistency - Continue Boost TID - Nutrition re-consulted given significant improvement over course -- aid with plans moving forward Dispositional Planning -- on hold until procedures completed; anticipate d/c to inpatient rehab - Patient will be in need of the following as they prepare to transition out of the hospital and back into correctional services VS. inpatient rehabilitation. Case management actively assisting: - Regular PT, OT - Orthotics to aid with prosthetic obtainment - Flutter valve and, if available, vibratory vest - Inhalers. Warfarin with PT, INR checks - Labs draws if needed - [place] care / management - O2 management: 3-5Lpm NC upon d/c - Ability to provide wound care for stump, lower buttock wound -Patient was excepted for inpatient rehabilitation; however, must first address/create plan for eschar and stump wound. CM aware, following. Resolved Problems Episode of Atrial Fibrillation - resolved PNA: s/p 14-day course of cefepime Electrolyte Disturbances (K, Na, Mg): Repleted. KCl 40mEq/day Thrombocytopenia: 2/2 malnutrition, phlebotomy, wound Chronic Medical Problems: HLD: Holding home atorvastatin HTN: Holding home isosorbide mononitrate, HCTZ, lisinopril CODE STATUS: DNR/DNI FEN/GI: Heart healthy, low-sodium diet. NPO at midnight on 07/16 for procedure. DVT prophylaxis: Warfarin for PEs, as above Dispo: Med/surg. Please see above; anticipate d/c to inpatient rehabilitation when appropriate. Admission and Anticipated Discharge Date Admission Date: June 11, 2020 Supervising Physician Co-Signing Physician Notes Resident Physician Supervision Note: I independently interviewed and examined the patient and verified the flynn history and physical, reviewed labs and image studies, discussed the case with the resident Dr. Worley and agree with the findings and care plan. Subjective Overall, reports feeling well this morning. Says that his pain is still bad, but better than some previous days. He said that the Toradol helped significantly. Continues to note that the morphine does not help compared to his other medications. Other than this, he says that he feels wellbreathing is still much better compared to several days ago. He feels like he is not getting short of breath anymore talking. He does endorse a better appetiteasking if his diet can be liberalized to allow more food options. He is eager, but still nervous, to proceed with procedure given previous history of cardiac arrest intraoperatively. Review of Systems Review of Systems: Per HPI Physical Exam Constitutional: Well, but frail-appearing 75-year-old male who is sitting back in his hospital bed, relaxed upon my arrival. Compared to previous days, he does appear more energetic, and converses more freely. No acute distress. Respiratory: Relaxed respiratory effort with symmetric expansion of the chest. Lungs are clear to auscultation bilaterally without crackles or wheezes. Compared to previous assessments, respiratory effort is significantly improved. Cardiovascular: Normal rate, regular rhythm, S1 and S2 are present without murmurs rubs or gallops. Gastrointestinal (Abdomen): normal bowel sounds, soft, nontender, no hepatosp lenomegaly Results & Data Results & Data ([facility]) Vital Signs (Past 12 Hours) Vital Signs Temp Pulse Resp BP Pulse Ox 07/14/20 07:25 36.8 C 84 16 113/76 100 Resident Activity Tracking Resident Involvement: Resident Care Provided Care Provided: Adult Hospital Medicine (1) Pneumonia Laterality: right Lung location: lower lobe of lung Pneumonia type: due to unspecified organism Qualified Code(s): J18.9 - Pneumonia, unspecified organism
[2020-07-14] MEDS: KETOROLAC TROMETHAMINE 15 MG/ML VIAL IV SCH ×2 (14:09→20:32)
[2020-07-14] MEDS: HYDROmorphone INJ 0.5 MG/0.5 ML SYR IV PRN ×2 (14:10→22:06)
[2020-07-14 17:19] LABS: INR 2.9 (0.9-1.1); Prothrombin Time 26.8 Seconds (9.0-12.0)
[2020-07-14] MEDS: FLUTICASONE PROPIONATE NA SPR 16 GM BTL NAE SCH (20:32)
[2020-07-15] MEDS: KETOROLAC TROMETHAMINE 15 MG/ML VIAL IV SCH ×3 (05:34→21:02)
[2020-07-15] MEDS: ACETAMINOPHEN 500 MG TAB PO SCH ×3 (05:34→21:02)
[2020-07-15 06:31] LABS: Basophils # (auto) 0.01 K/uL (0-0.2); Basophils % (auto) 0.1 %; Eosinophils # (auto) 0.01 K/uL (0-0.5); Eosinophils % (auto) 0.1 %; Hematocrit (blood only) 24.7 % (42-52); Hemoglobin 8.1 g/dL (14.0-18.0); Immature Granulocytes # (auto) 0.05 K/uL (0.00-0.02); Immature Granulocytes % (auto) 0.6 %; Lymphocytes # (auto) 2.16 K/uL (1.2-3.4); Lymphocytes % (auto) 25.5 %; Mean Corpuscular Hemoglobin 29.6 pg (25-34); Mean Corpuscular Hgb Conc 32.8 g/dL (32-36); Mean Corpuscular Volume 90.1 fL (80-100); Mean Platelet Volume 12.2 fL (7.4-10.4); Monocytes # (auto) 0.69 K/uL (0.11-0.59); Monocytes % (auto) 8.2 %; Neutrophils # (auto) 5.54 K/uL (1.4-6.5); Neutrophils % (auto) 65.5 %; Platelet Count 288 K/uL (130-400); RDW Coefficient of Variation 15.7 % (11.5-14.5); RDW Standard Deviation 51.1 fL (36.4-46.3); Red Blood Count 2.74 M/uL (4.7-6.1); White Blood Count 8.46 K/uL (4.8-10.8)
[2020-07-15 06:53] LABS: INR 2.3 (0.9-1.1); Partial Thromboplastin Ratio 1.9; Prothrombin Time 21.9 Seconds (9.0-12.0)
[2020-07-15 06:59] LABS: Albumin Level 1.8 gm/dl (3.4-5.0); BUN Creatinine Ratio 23.4 (10-20); Calcium 8.1 mg/dl (8.5-10.1); Creatinine Clr Calc Pharmacy 61.8 ml/min; Est GFR (African American) 106.7; Potassium 4.1 mmol/L (3.5-5.1)
[2020-07-15 07:01] LABS: Albumin Globulin Ratio 0.4 (0.9-2); Bilirubin,Total 0.4 mg/dl (0.2-1); Globulin 4.4 gm/dl (2.5-4.0); Total Protein 6.2 gm/dl (6.4-8.2)
[2020-07-15 07:11] LABS: Partial Thromboplastin Time 49.4 Seconds (21.0-31.0)
[2020-07-15] MEDS: LIDOCAINE 5% 1 PATCH TD SCH (08:57)
[2020-07-15] MEDS: FUROSEMIDE 40 MG TAB PO SCH (08:57)
[2020-07-15] MEDS: SENNA 8.6 MG TAB PO SCH (08:57)
[2020-07-15] MEDS: POTASSIUM CHLORIDE 20 MEQ/15 ML UDC PO SCH (08:57)
[2020-07-15] MEDS: FLUTICASONE/VILANTEROL 100/25MCG 14 PUFFS/INHALER INH SCH (08:58)
[2020-07-15] MEDS: FLUTICASONE PROPIONATE NA SPR 16 GM BTL NAE SCH ×3 (08:59→21:06)
[2020-07-15] MEDS: UMECLIDINIUM BROMIDE 62.5MCG/BLISTER 7 PUFFS/INHALER INH SCH (09:00)
[2020-07-15] MEDS: guaiFENesin 600 MG TABCR PO SCH ×2 (09:01→21:02)
[2020-07-15] MEDS: predniSONE 5 MG TAB PO SCH ×2 (09:01→21:02)
[2020-07-15] MEDS: CETIRIZINE HCL 10 MG TABLET PO SCH (09:02)
[2020-07-15] MEDS: METOPROLOL SUCC 25MG EXT REL TAB PO SCH ×2 (09:02→21:01)
[2020-07-15] MEDS: HYDROmorphone INJ 0.5 MG/0.5 ML SYR IV PRN ×3 (09:10→23:59)
--- NOTE | 2020-07-15 11:40 | Hospitalist Progress Note ---
Date of Service July 15, 2020 Assessment & Plan (1) Pneumonia: Sukhjinder Lomeli is a 75-year-old male with past medical history significant for CAD, HTN, HLD, extensive smoking history and COPD, hemorrhoids admitted for severe sepsis with acute hypoxic respiratory failure, with initial complaint of RLE pain with findings consistent with critical limb ischemia (now s/p AKA). The ladder part of his hospital course has been focused on optimization of his AHRF, which seems multifactorial in etiology: end-stage COPD, bilateral PEs, pulmonary edema, and PNA. Mr. Lomeli has also developed a large eschar wound on his buttock, as well as dehiscence and necrosis of his stump wound - which are now both being followed by wound care and surgery for further interventional planning. He remains hemodynamically stable. Eschar Wound on Buttock -- Surgery, WOCN following; Pain adequate throughout today - Surgery consulted for surgical debridement at recommendation of WOCN - Needs surgical debridement --> scheduled for 07/17 in AM - Anesthesia pre-op assessment: Patient is high risk, but previous arrest likely 2/2 acidosis. OK to proceed given necessity for procedure. - Anticipate AKA debridement at same time - Continue wound care recommendations per WOCN in interim - Stop Warfarin --> INR q12h, once < 2, start Hep gtt -- still demonstrating INR > 2 on q12h labs, but decreasing - Once started -- hold Hep gtt on 07/16 at 0000hr for procedure in AM - Pain control: Acetaminophen 1000mg q8h LIZETT, Toradol 15mg IV q8h LIZETT > Dilaudid 0.5mg IV q8h for breakthrough - Consider alternative to Toradol after 07/19 (continuous use for 5 days at that time) Critical RLE Ischemia, s/p AKA, now with Wound Dehiscence/Necrosis -- Vascular surgery following - Note: Patient did go into cardiac arrest prior to procedure and was subsequently resuscitated in the OR. Likely d/t acidosis. Required brief ICU stay. - Reconsulted vascular surgery given dehiscence, necrosis - Treat area conservatively until procedure - Revision procedure 07/17 in AM at same time as eschar debridement - Continue wound care recommendations per WOCN in interim - Wound cultured -- growing yeast, not Poppy - Continue PT - Inpatient rehab with orthotic fitting preferred at discharge Severe Protein-Calorie Malnutrition -- patient gradually improving with PO intake - Clinical splitter machine following actively, appreciate recommendations: - OK to liberalize diet --> Regular diet ordered - Continue supplementation PRN - Continue low-sodium diet for now given volume-related component to AHRF Acute Hypoxemic Respiratory Failure - significantly improved; not requiring above 3L during day - Multifactorial including pneumonia, COPD with significant tobacco use ( > 55 pack-year history), bilateral PE, pulmonary edema/effusions, previous PNA (resolved) - Significantly improved O2 requirement and work of breathing from prior (<=3L from 5L in previous weeks) - Pulmonology consulted earlier in course, appreciate insight and recommendations: - Goal SpO2: 88-92% - Continue diuretics to maintain negative I&O balance - Pain control as above to aid with pain that is preventing cough / expectorant removal - Vibratory vest PRN Bilateral Pulmonary Emboli - Noted on CT-A 06/26. No DVT. - INR Goal 2-3 - As above: Stop Warfarin d/t possible Procedure. 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 (with >55 pack-year history) - Continue home prednisone (5mg b.i.d.) - Continue Breo, Incruse inhalers daily - Continue Mucinex and Zyrtec daily Pulmonary Edema and Effusions -- Likely from resolving LV function in setting of PNA, PEs, and severe hypoalbuminemia - Small b/l pleural effusions persisting throughout multiple imaging studies - Continue daily Lasix 40mg PO daily - As below - HFrEF Chronic HFrEF, CAD -- tolerating furosemide 40mg PO daily well, renal function stable on repeat labs - Hx of [place] approximately 4 years ago (attempted PCI, vessel ruptured, PCI aborted) - TTE 06/28 LV sys fxn normal (55-60%), RV systolic pressure is elevated at 40- 50mmHg (improved from 06/12) - Continue home metoprolol succinate 12.5mg b.i.d. - Continue holding home medications: isosorbide mononitrate, ranolazine, lisinopril, and ASA - Lasix as above - Strict I&Os, daily weights Dispositional Planning -- on hold until procedures completed; anticipate d/c to inpatient rehab - Patient will be in need of the following as they prepare to transition out of the hospital and back into correctional services VS. inpatient rehabilitation. Case management actively assisting: - Regular PT, OT - Orthotics to aid with prosthetic obtainment - Flutter valve - Inhalers. Warfarin with regular PT, INR checks - Labs draws if needed - Godoy care / management - O2 management: anticipate 1-3 Lpm NC at discharge - Ability to provide wound care for stump, lower buttock wound -Patient was excepted for inpatient rehabilitation; however, must first address/create plan for eschar and stump wound. CM aware, following. Resolved Problems Episode of Atrial Fibrillation - resolved PNA: Resolved. Now s/p 14-day course of cefepime Electrolyte Disturbances (K, Na, Mg): Resolved. Continue KCl 40mEq/day Thrombocytopenia: Resolved. 2/2 malnutrition, phlebotomy, wound Chronic Medical Problems: HLD: Holding home atorvastatin HTN: Holding home isosorbide mononitrate, HCTZ, lisinopril CODE STATUS: DNR/DNI FEN/GI: Heart healthy, low-sodium diet. NPO at midnight on 07/16 for procedure. DVT prophylaxis: ON HOLD -- Warfarin for PEs, as above, normally. INR still at goal -- >2. Hold heparin gtt (when started) at midnight 07/16 for procedure Friday. Dispo: Med/surg. Please see above; anticipate d/c to inpatient rehabilitation when appropriate. Admission and Anticipated Discharge Date Admission Date: June 11, 2020 Supervising Physician Co-Signing Physician Notes Resident Physician Supervision Note: I independently interviewed and examined the patient and verified the flynn history and physical, reviewed labs and image studies, discussed the case with the resident Dr. Worley and agree with the findings and care plan. Subjective Feeling 'pretty good' this morning. Pain still present, but improved from before. Thinks the scheduled Toradol/Tylenol schedule is working. He is really trying to minimize opioid use to absolutely what is necessary -- does not want to become addicted. Dilaudid working when needed. Breathing feels 'comfortable' Diet much better - enjoying less restrictions. No other concerns this AM Review of Systems Review of Systems: as per HPI Physical Exam Constitutional: Frail, but overall well appearing 75yoM who is lying back in his bed, appearing more energetic than previous days. Converses freely and easily. NAD. Respiratory: Good respiratory effort with symmetric expansion of the chest. Lungs grossly CTAB w/o crackles or wheezes. Cardiovascular: NRRR. S1/S2 present without m/r/g Gastrointestinal (Abdomen): normal bowel sounds, soft, nontender, no hepatosplenomegaly Skin: RLE stump dressing c/d/i Results & Data Results & Data ([facility]) Vital Signs (Past 12 Hours) Vital Signs Temp Pulse Resp BP Pulse Ox Pulse Ox 07/15/20 11:05 98 07/15/20 07:20 37.0 C 80 18 119/72 96 Resident Activity Tracking Resident Involvement: Resident Care Provided Care Provided: Adult Hospital Medicine (1) Pneumonia Laterality: right Lung location: lower lobe of lung Pneumonia type: due to unspecified organism Qualified Code(s): J18.9 - Pneumonia, unspecified organism
[2020-07-15 17:00] LABS: INR 2.4 (0.9-1.1); Prothrombin Time 22.4 Seconds (9.0-12.0)
[2020-07-16] MEDS: KETOROLAC TROMETHAMINE 15 MG/ML VIAL IV SCH (05:02)
[2020-07-16] MEDS: ACETAMINOPHEN 500 MG TAB PO SCH ×3 (05:02→21:16)
[2020-07-16 06:47] LABS: INR 1.5 (0.9-1.1); Prothrombin Time 14.9 Seconds (9.0-12.0)
[2020-07-16] MEDS ORDERED: Heparin IV Adult Wt-Based Standard *NO* Bolus Protocol IV SCH (08:10)
[2020-07-16] MEDS: FLUTICASONE/VILANTEROL 100/25MCG 14 PUFFS/INHALER INH SCH (08:51)
[2020-07-16] MEDS: UMECLIDINIUM BROMIDE 62.5MCG/BLISTER 7 PUFFS/INHALER INH SCH (08:51)
[2020-07-16] MEDS: FLUTICASONE PROPIONATE NA SPR 16 GM BTL NAE SCH ×2 (08:51→21:15)
[2020-07-16] MEDS: POTASSIUM CHLORIDE 20 MEQ/15 ML UDC PO SCH (08:52)
[2020-07-16] MEDS: FUROSEMIDE 40 MG TAB PO SCH (08:53)
[2020-07-16] MEDS: guaiFENesin 600 MG TABCR PO SCH ×2 (08:53→21:15)
[2020-07-16] MEDS: LIDOCAINE 5% 1 PATCH TD SCH (08:53)
[2020-07-16] MEDS: CETIRIZINE HCL 10 MG TABLET PO SCH (08:54)
[2020-07-16] MEDS: METOPROLOL SUCC 25MG EXT REL TAB PO SCH ×2 (08:54→21:16)
[2020-07-16] MEDS: predniSONE 5 MG TAB PO SCH ×2 (08:56→21:16)
[2020-07-16] MEDS: HYDROmorphone INJ 0.5 MG/0.5 ML SYR IV PRN ×2 (09:06→17:18)
[2020-07-16 09:43] LABS: Hematocrit (blood only) 24.4 % (42-52); Hemoglobin 7.8 g/dL (14.0-18.0); Mean Corpuscular Hemoglobin 29.1 pg (25-34); Mean Platelet Volume 11.2 fL (7.4-10.4); Platelet Count 243 K/uL (130-400); RDW Coefficient of Variation 15.8 % (11.5-14.5); RDW Standard Deviation 51.8 fL (36.4-46.3); Red Blood Count 2.68 M/uL (4.7-6.1); White Blood Count 9.31 K/uL (4.8-10.8)
[2020-07-16 09:46] LABS: INR 1.5 (0.9-1.1); Partial Thromboplastin Ratio 1.4; Partial Thromboplastin Time 36.8 Seconds (21.0-31.0); Prothrombin Time 14.8 Seconds (9.0-12.0)
[2020-07-16] MEDS: HEPARIN SODIUM/DEXTROSE 25,000 UNITS/500 ML BAG IV SCH (10:07)
[2020-07-16 10:11] LABS: Basophils # (auto) 0.02 K/uL (0-0.2); Basophils % (auto) 0.2 %; Eosinophils # (auto) 0.06 K/uL (0-0.5); Eosinophils % (auto) 0.6 %; Immature Granulocytes # (auto) 0.07 K/uL (0.00-0.02); Immature Granulocytes % (auto) 0.8 %; Monocytes # (auto) 0.74 K/uL (0.11-0.59); Monocytes % (auto) 7.9 %; Neutrophils # (auto) 5.72 K/uL (1.4-6.5); Neutrophils % (auto) 61.5 %
--- NOTE | 2020-07-16 10:16 | Surgery Progress Note ---
Date of Service July 16, 2020 Assessment & Plan (1) Dehiscence of amputation stump: At this point we plan on debridement and revision of the right above-knee amputation stump tomorrow. I have discussed the risks options and benefits of the procedure with the patient. The patient understands the risks options and benefits and agrees to the procedure. Admission and Anticipated Discharge Date Admission Date: June 11, 2020 Subjective Patient is awake alert. He is in good spirits. He is complaining of buttock pain. Physical Exam Physical Exam: The right above-knee amputation stump has necrotic edges still present. There is no surrounding erythema. There is mild drainage from the stump wound. Results & Data ([facility]) Vital Signs (Past 12 Hours) Vital Signs Temp Pulse Pulse Resp BP Pulse Ox 07/16/20 07:22 36.7 C 90 18 129/72 99 07/15/20 22:00 36.7 C 94 H 18 120/74 98
--- NOTE | 2020-07-16 11:18 | Hospitalist Progress Note ---
Date of Service July 16, 2020 Assessment & Plan (1) Pneumonia: Sukhjinder Lomeli is a 75-year-old male with past medical history significant for CAD, HTN, HLD, extensive smoking history and COPD, hemorrhoids admitted for severe sepsis with acute hypoxic respiratory failure, with initial complaint of RLE pain with findings consistent with critical limb ischemia (now s/p AKA). The ladder part of his hospital course has been focused on optimization of his AHRF, which seems multifactorial in etiology: end-stage COPD, bilateral PEs, pulmonary edema, and PNA. Mr. Lomeli has also developed a large eschar wound on his buttock, as well as dehiscence and necrosis of his stump wound - which are now both being followed by wound care and surgery for further interventional planning. He remains hemodynamically stable. Eschar Wound on Buttock -- debridement procedure scheduled 07/17 in AM - Surgery consulted for surgical debridement at recommendation of WOCN - Eschar debridement 07/17 in AM with general surgery + concurrent stump debridement by vascular surgery - Anesthesia pre-op assessment: Patient is high risk, but previous arrest likely 2/2 acidosis. OK to proceed given necessity for procedure. - Continue wound care recommendations per WOCN in interim - Hep gtt added given INR < 2 --> scheduled to stop at 0000 in anticipation of procedure tomorrow - Pain control regimen: Acetaminophen 1000mg q8h LIZETT, morphine 3mg IV q2h PRN > Dilaudid 0.5mg IV q8h for breakthrough - Discontinue scheduled Toradol given upcoming procedure - Recommend following regimen once appropriate after procedure: Tylenol 1g PO q8h LIZETT + Toradol 15mg IV q8h LIZETT + Dilaudid 0.5mg IV q8h - Refrain from scheduled Toradol use > 5 consecutive days in a row Critical RLE Ischemia, s/p AKA, now with Wound Dehiscence/Necrosis -- revision/debridement procedure scheduled 07/17 in AM - Reconsulted vascular surgery given dehiscence, necrosis - Revision procedure 07/17 in AM at same time as eschar debridement - Continue wound care recommendations per WOCN in interim - Wound cultured -- growing yeast, not Poppy - Continue PT - Inpatient rehab with orthotic fitting preferred at discharge Severe Protein-Calorie Malnutrition -- patient gradually improving with PO intake - Clinical knit tubing dyer following actively, appreciate recommendations: - OK to liberalize diet --> Regular diet ordered - Continue supplementation PRN - Continue low-sodium diet for now given volume-related component to AHRF Acute Hypoxemic Respiratory Failure - significantly improved; not requiring above 3L during day - Multifactorial including pneumonia, COPD with significant tobacco use ( > 55 pack-year history), bilateral PE, pulmonary edema/effusions, previous PNA (resolved) - Significantly improved O2 requirement and work of breathing from prior (<=3L from 5L in previous weeks) - Pulmonology consulted earlier in course, appreciate insight and recommendations: - Goal SpO2: 88-92% - Continue diuretics to maintain negative I&O balance - Pain control as above to aid with pain that is preventing cough / expectorant removal - Vibratory vest PRN Bilateral Pulmonary Emboli - Noted on CT-A 06/26. No DVT. 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 Class D (with >55 pack-year history) - Continue home prednisone (5mg b.i.d.) - Continue Breo, Incruse inhalers daily - Continue Mucinex and Zyrtec daily Pulmonary Edema and Effusions -- Likely from resolving LV function in setting of PNA, PEs, and severe hypoalbuminemia - Small b/l pleural effusions persisting throughout multiple imaging studies - Continue daily Lasix 40mg PO daily - As below - HFrEF Chronic HFrEF, CAD -- tolerating furosemide 40mg PO daily well, renal function stable on repeat labs - Hx of [place] approximately 4 years ago (attempted PCI, vessel ruptured, PCI aborted) - TTE 06/28 LV sys fxn normal (55-60%), RV systolic pressure is elevated at 40- 50mmHg (improved from 06/12) - Continue home metoprolol succinate 12.5mg b.i.d. - Continue holding home medications: isosorbide mononitrate, ranolazine, lisinopril, and ASA - Lasix as above - Strict I&Os, daily weights Dispositional Planning -- on hold until procedures completed; anticipate d/c to inpatient rehab - Patient will be in need of the following as they prepare to transition out of the hospital and back into correctional services VS. inpatient rehabilitation. Case management actively assisting: - Regular PT, OT - Orthotics to aid with prosthetic obtainment - Flutter valve - Inhalers. Warfarin with regular PT, INR checks - Labs draws if needed - Godoy care / management - O2 management: anticipate 1-3 Lpm NC at discharge - Ability to provide wound care for stump, lower buttock wound -Patient was excepted for inpatient rehabilitation; however, must first address/create plan for eschar and stump wound. CM aware, following. Resolved Problems Episode of Atrial Fibrillation - resolved PNA: Resolved. Now s/p 14-day course of cefepime Electrolyte Disturbances (K, Na, Mg): Resolved. Continue KCl 40mEq/day Thrombocytopenia: Resolved. 2/2 malnutrition, phlebotomy, wound Chronic Medical Problems: HLD: Holding home atorvastatin HTN: Holding home isosorbide mononitrate, HCTZ, lisinopril CODE STATUS: DNR/DNI FEN/GI: NPO at midnight for procedure. Heart healthy, low-sodium diet. DVT prophylaxis: ON HOLD -- Warfarin for PEs, as above, normally. INR still at goal -- >2. Hold heparin gtt (when started) at midnight 07/16 for procedure Friday. Dispo: Med/surg. Procedures above 07/17 in AM. Please see above; anticipate d/c to inpatient rehabilitation when appropriate. ACTIVE consults: Vascular surgery, general surgery Admission and Anticipated Discharge Date Admission Date: June 11, 2020 Supervising Physician Co-Signing Physician Notes Resident Physician Supervision Note: I independently interviewed and examined the patient and verified the flynn history and physical, reviewed labs and image studies, discussed the case with the resident Dr. Worley and agree with the findings and care plan. Subjective No acute events overnight. At the bedside this morning, patient reports again feeling "pretty good." Reports that his pain still continues to be the worst that his buttock, but has been much better under control with the Toradol and Tylenol scheduled. He says he wishes that the Toradol could be scheduled more frequently. He is eager, and somewhat anxious about the surgery tomorrow morning. Says that his breathing continues improving. Denies any shortness of breath. No chest pain or palpitations. Appetite is goodwas very looking forward to breakfast this morning, continues to enjoy his liberalize diet. Review of Systems Review of Systems: Per HPI Physical Exam Constitutional: Well, and more energetic appearing 75-year-old male who is lying back in his hospital bed, relaxed, eating breakfast upon my arrival. No acute distress Respiratory: Easy respiratory effort with symmetric space of the chest. Lungs are clear to auscultation bilaterally without crackles or wheezes. Mildly diminished breath sounds in the bases. Cardiovascular: Normal rate and regular rhythm. S1 and S2 are present without murmurs rubs or gallops. Gastrointestinal (Abdomen): Abdomen soft, nontender, nondistended to palpation. Results & Data Results & Data ([facility]) Vital Signs (Past 12 Hours) Vital Signs Temp Pulse Resp BP Pulse Ox 07/16/20 07:22 36.7 C 90 18 129/72 99 Resident Activity Tracking Resident Involvement: Resident Care Provided Care Provided: Adult Hospital Medicine (1) Pneumonia Laterality: right Lung location: lower lobe of lung Pneumonia type: due to unspecified organism Qualified Code(s): J18.9 - Pneumonia, unspecified organism
[2020-07-16] MEDS: MoRPHine SULFATE 2 MG/ML CARP IV PRN ×2 (13:58→21:24)
[2020-07-16 18:00] LABS: INR 1.3 (0.9-1.1); Partial Thromboplastin Ratio 2.8; Prothrombin Time 13.1 Seconds (9.0-12.0)
[2020-07-16 18:08] LABS: Partial Thromboplastin Time 74.4 Seconds (21.0-31.0)
[2020-07-16] MEDS ORDERED: HOLD HEPARIN DRIP ORDER ONE (23:59)
[2020-07-17 00:51] LABS: Partial Thromboplastin Ratio 1.7; Partial Thromboplastin Time 44.9 Seconds (21.0-31.0)
[2020-07-17] MEDS: HYDROmorphone INJ 0.5 MG/0.5 ML SYR IV PRN ×2 (01:14→12:16)
[2020-07-17] MEDS: ACETAMINOPHEN 500 MG TAB PO SCH ×3 (05:47→22:10)
[2020-07-17 06:00] LABS: Basophils # (auto) 0.01 K/uL (0-0.2); Basophils % (auto) 0.1 %; Eosinophils # (auto) 0.05 K/uL (0-0.5); Eosinophils % (auto) 0.5 %; Hematocrit (blood only) 26.1 % (42-52); Hemoglobin 8.2 g/dL (14.0-18.0); Immature Granulocytes # (auto) 0.12 K/uL (0.00-0.02); Immature Granulocytes % (auto) 1.2 %; Lymphocytes # (auto) 2.82 K/uL (1.2-3.4); Lymphocytes % (auto) 28.9 %; Mean Corpuscular Hemoglobin 28.9 pg (25-34); Mean Corpuscular Hgb Conc 31.4 g/dL (32-36); Mean Corpuscular Volume 91.9 fL (80-100); Monocytes # (auto) 0.95 K/uL (0.11-0.59); Monocytes % (auto) 9.7 %; Neutrophils % (auto) 59.6 %; Platelet Count 230 K/uL (130-400); RDW Coefficient of Variation 15.8 % (11.5-14.5); RDW Standard Deviation 52.9 fL (36.4-46.3); Red Blood Count 2.84 M/uL (4.7-6.1); White Blood Count 9.75 K/uL (4.8-10.8)
[2020-07-17 06:19] LABS: Albumin Level 1.8 gm/dl (3.4-5.0); BUN Creatinine Ratio 26.8 (10-20); Calcium 7.7 mg/dl (8.5-10.1); Creatinine Clr Calc Pharmacy 82.1 ml/min; Est GFR (African American) 119.8; Est GFR (Non-African American) 103.4; Potassium 4.1 mmol/L (3.5-5.1)
[2020-07-17 06:22] LABS: Albumin Globulin Ratio 0.4 (0.9-2); Bilirubin,Total 0.3 mg/dl (0.2-1); Globulin 4.5 gm/dl (2.5-4.0); Total Protein 6.3 gm/dl (6.4-8.2)
[2020-07-17 06:24] LABS: INR 1.2 (0.9-1.1); Partial Thromboplastin Ratio 1.2; Partial Thromboplastin Time 31.7 Seconds (21.0-31.0); Prothrombin Time 11.6 Seconds (9.0-12.0)
--- NOTE | 2020-07-17 06:40 | Hospitalist Progress Note ---
Date of Service July 17, 2020 Assessment & Plan (1) Buttock wound: Sukhjinder Lomeli is a 75 y/o male with hx of CAD, HTN, HLD, and COPD admitted for severe sepsis with acute hypoxic respiratory failure and is s/p R AKA for critical limb ischemia. This has been a prolonged hospitalization >30 days, complicated by bilateral PEs, pulmonary edema, pneumonia, and buttock eschar. Eschar Wound on Buttock - s/p debridement procedure 07/17 - restarted prn toradol - continue prn tylenol, morphine, dilaudid - continue wound care Critical RLE Ischemia, s/p AKA, - wound dehiscence and necrosis. s/p debridement 07/17 - pain control and wound care as per above - Inpatient rehab with orthotic fitting preferred at discharge Severe Protein-Calorie Malnutrition - tube sizer and cutter operator following - OK to liberalize diet --> Regular diet ordered - Continue supplementation PRN Acute Hypoxemic Respiratory Failure - Multifactorial including pneumonia, COPD with significant tobacco use ( > 55 pack-year history), bilateral PE, pulmonary edema/effusions, previous PNA (resolved) - Significantly improved O2 requirement and work of breathing from prior (<=3L from 5L in previous weeks) - Goal SpO2: 88-92%. O2 requirement 3-3.5L while here. No O2 requirement prior to admission. - Continue diuretics to maintain negative I&O balance - Vibratory vest PRN - low sodium diet Bilateral Pulmonary Emboli - on CT-A 06/26 - Anticipate restarting warfarin 2mg PO daily after bridge. Goal INR 2-3. End-stage COPD/Emphysema with Cor Pulmonale - Gold Class D (with >55 pack-year history) - Continue home inhalers Chronic HFrEF, CAD - Hx of [place] approximately 4 years ago (attempted PCI, vessel ruptured, PCI aborted). - Went into cardiac arrest in OR prior to R AKA this current admission - TTE 06/28 LV sys fxn normal (55-60%), RV systolic pressure is elevated at 40- 50mmHg - Continue home metoprolol succinate 12.5mg b.i.d. - continue furosemide 40 mg PO daily - Strict I&Os, daily weights HLD: Holding home atorvastatin HTN: Holding home isosorbide mononitrate, HCTZ, lisinopril CODE STATUS: DNR/DNI FEN/GI: low-sodium diet. No mIVF. DVT prophylaxis: ON HOLD. will bridge 24-48 hrs after procedure and restart warfarin after (because of group home formulary) Dispo: Med/surg. anticipate d/c to inpatient rehabilitation when appropriate. (2) Amputation above knee: (3) Dehiscence of amputation stump: (4) Peripheral vascular disease: (5) Cardiomyopathy, ischemic: (6) CAD (coronary artery disease): (7) Sepsis with acute hypoxic respiratory failure: (8) Pneumonia: Admission and Anticipated Discharge Date Admission Date: June 11, 2020 Supervising Physician Co-Signing Physician Notes I personally examined the patient and verified all flynn points of history and ex am, discussed case, and agree with decision making with Dr Stanley. Pain at both surgical sites. Breathing about the same. Otherwise no complaints. Still wants his pain controlled mostly be nonnarcotic when possible Vitals noted, in general he is awake and alert pleasant appears to be mildly uncomfortable but otherwise no distress. HEENT normocephalic atraumatic mucous membranes moist. Breathing unlabored no accessory muscle use good effort. Skin shows no rashes no pallor or icterus. Sacral ulcer now status post debridement. Continue local wound care Critical limb ischemia status post amputation now with stump wound dehiscencestatus post surgical revision. Ongoing pain control, ongoing supportive care. Otherwise as above. PEresume heparin drip as soon as is safe Subjective Patient went to OR. Not in room at 0854. Reassessed at 1840: Patient complaining of pain at buttock and R AKA stump, worse at buttock. Overall pain is 8/10 intensity. He states that toradol has worked well for him previously, even better than the dilaudid, and is requesting it. Review of Systems Review of Systems: See HPI. Patient has generalized pain. mild chest pain and shortness of breath. No abdominal pain. Physical Exam Physical Exam: General: Grossly A&O. NAD. Cooperative. HEENT: Atraumatic, normocephalic. Pulm: CTAB. -wheezes, -rales, -rhonchi anteriorly. No respiratory distress. Cardiac: RRR, -mrg. Abdominal: Nontender, nondistended, soft. Musculoskeletal: right knee stump is wrapped, plastic dressing is intact. Did not visualize gluteal area. Results & Data Results & Data ([facility]) Vital Signs (Past 12 Hours) Vital Signs Temp Pulse Resp BP Pulse Ox 07/16/20 22:45 36.8 C 94 H 18 123/74 97 07/16/20 21:13 103 H 119/76 98 Resident Activity Tracking Resident Involvement: Resident Care Provided Care Provided: Adult Hospital Medicine (1) CAD (coronary artery disease) Coronary Disease-Associated Artery/Lesion type: [place] artery [place] vs. transplanted heart: [place] heart Associated angina: with stable angina Qualified Code(s): I25.118 - Atherosclerotic heart disease of [place] coronary artery with other forms of angina pectoris (2) Pneumonia Laterality: right Lung location: lower lobe of lung Pneumonia type: due to unspecified organism Qualified Code(s): J18.9 - Pneumonia, unspecified organism
[2020-07-17] MEDS ORDERED: ePHEDrine sulfate 50 MG/ML AMP IV PRN (06:43)
[2020-07-17] MEDS ORDERED: fentaNYL citrate 100 MCG/2 ML VIAL IV PRN (06:43)
[2020-07-17] MEDS ORDERED: ONDANSETRON INJ 2 MG/ML 2 ML VIAL IV PRN (06:43)
[2020-07-17] MEDS ORDERED: ATROPINE SULFATE 0.1 MG/ML 10ML SYR IV PRN (06:43)
[2020-07-17] MEDS ORDERED: PROPOFOL IV EMULSION 10 MG/ML 20 ML VIAL IV ONE (06:51)
[2020-07-17] MEDS ORDERED: LIDOCAINE HCL 2% 2 ML VIAL/AMP(20MG/ML) INFIL ONE (06:51)
[2020-07-17] MEDS ORDERED: fentaNYL citrate 100 MCG/2 ML VIAL ONE ×2 (06:51→09:31)
--- NOTE | 2020-07-17 07:03 | Surgery Progress Note ---
Date of Service July 17, 2020 Assessment & Plan (1) Buttock wound: sacral decubitus ulcer, requires debridement. Vascular to revise remnant at same time. plan for debridement sacral decubitus ulcer risks reviewed inr 1.2 wound care will manage post op Admission and Anticipated Discharge Date Admission Date: June 11, 2020 Subjective 75 y/o male with sacral decubitus ulcer. No changes over weekend, coumadin held, inr 1.2 this am. Physical Exam Constitutional: WD/WN, vitals as above Skin: + wound (large eschar involving most of right buttock ) Results & Data ([facility]) Vital Signs (Past 12 Hours) Vital Signs Temp Pulse Resp BP Pulse Ox 07/16/20 22:45 36.8 C 94 H 18 123/74 97 07/16/20 21:13 103 H 119/76 98 PG Care Time/CCT Total # of Minutes Spent Total Time Spent with Patient: Total time spent is greater than 50% in c oordination of care (as documented) at patient's floor/unit and/or counseling patient: Coding Level of Care Code 27469 Inpt Consult Level 3 Diagnoses Buttock wound S31.809A
--- NOTE | 2020-07-17 07:16 | History & Physical Bridge Note ---
Date of Service July 17, 2020 History & Physical Bridge Note Patient for debridement of right AKA stump I have examined the patient, reviewed the History & Physical and in the interval since the performance of the History & Physical I have noted the following changes of clinical significance: no changes noted
[2020-07-17] MEDS ORDERED: VANCOMYCIN CONSULT ACTIVE PRN (07:20)
[2020-07-17] MEDS ORDERED: VANCOMYCIN HCL 1 GM/270 ML BAG ONE (07:23)
[2020-07-17] MEDS ORDERED: BUPIVACAINE 0.5 % 5 MG/1 ML MPF 30ML VIAL ONE (08:07)
[2020-07-17] MEDS ORDERED: BUPIVACAINE LIPOSOME 1.3% 266 MG/20 ML VIAL ONE (08:07)
[2020-07-17] MEDS ORDERED: NEOSTIGMINE METHYLSULFATE 5 MG/5 ML SYR ONE (08:17)
[2020-07-17] MEDS ORDERED: ETOMIDATE 2 MG/ML 20 ML VIAL IV ONE (08:17)
[2020-07-17] MEDS ORDERED: GLYCOPYRROLATE 0.2 MG/ML VIAL ONE (08:17)
[2020-07-17] MEDS ORDERED: ONDANSETRON INJ 2 MG/ML 2 ML VIAL ONE (08:17)
--- NOTE | 2020-07-17 08:58 | Post Operative Brief Note ---
PG Immediate Post Op with CF Date of Surgery July 17, 2020 Pre & Post Diagnosis Operation Date: 07/17/20 07:00 Pre-Op Diagnosis: Buttock wound Post-Op Diagnosis: Buttock wound I identified the patient and participated in the time-out.: Yes Procedure Operation Date: 07/17/20 07:00 Actual Procedures p Sacral Decubitus Ulcer Debridement(Not Applicable) - Jack Mayers DO, FACS Surgeon Jack Mayers DO, FACS Estimator Paperboard Boxes Blanca Thompson Estimated Blood Loss 10 Findings Consistent with Post-Op Diagnosis 20x10, undermines to 20x15 debrided to bone, majority of gluteus estela muscle excised. Specimens Specimen Description: sacral decubitus ulcer Drains Godoy Catheter (from inpatient floor) Anesthesia Type General Disposition Accompanied Patient To Recovery: No Disposition: Recovery Room
--- NOTE | 2020-07-17 09:16 | Operative Report ---
PG Post Operative Report Pre & Post Diagnosis Operation Date: 07/17/20 07:00 Pre-Op Diagnosis: Buttock wound Post-Op Diagnosis: Buttock wound I identified the patient and participated in the time-out.: Yes Procedure Operation Date: 07/17/20 07:00 Actual Procedures p Sacral Decubitus Ulcer Debridement, greater than 50 cm (Not Applicable) - Jack Mayers DO, FACS s Right Stump Revision(Right) - Arnulfo Her MD Surgeon Jack Mayers DO, FACS Business Solutions Director Blanca Thompson Estimated Blood Loss 10 Findings Consistent with Post-Op Diagnosis 20x10, undermines to 20x15 debrided to bone, majority of gluteus estela muscle excised. Specimens Sacral decubitus ulcer Anesthesia Type General Complications none Disposition Accompanied Patient To Recovery: No Disposition: Recovery Room Indications 75-year-old incarcerated male status post right above-knee amputation for ischemic leg, now with unstageable sacral decubitus ulcer and ischial tuberosity ulcer, plan for debridement sacral decubitus ulcer in the operating room. The risks of the procedure were discussed, all questions were answered, and the patient agreed to proceed with surgery as planned. Description of Procedure The patient was properly identified, consented, and taken to the operating room where he was placed in the supine position. General endotracheal anesthesia was induced and the patient was rolled into the prone position. A safety belt was placed. Preoperative antibiotics were administered. The patient's lower back, buttock, and upper posterior thighs were prepped and draped in the standard sterile fashion. Surgical timeout was performed and all parties were in agreement that this was the correct patient and procedure to be performed and we continued as planned. We began by using sharp dissection to debride the overlying eschar. We continued the debridement through the fat to reach some bleeding tissue on the periphery. The majority of the gluteus estela muscle was nonviable and was debrided. Along the superior medial portion of the wound we were down to sacrum and periosteum. The ischial tuberosity ulcer was also debrided and there is a thin skin bridge so the wounds were combined. We had moderately healthy and bleeding tissue over the course of the entire wound. The wound was irrigated and hemostasis was confirmed. The total area of the wound measured 20 cm x 10 cm in width, but undermined to 15 cm in width. The wound was packed with saline soaked Kerlix gauze followed by fluffs and multiple ABDs, and disposable knit underwear were used to hold in place. Total debridement area was approximately 250 cm. This now represents a stage 3-4 sacral decubitus ulcer. The patient was then rolled back into the supine position and the case was turned over to vascular surgery for revision of his amputation remnant, for further details please see Dr. Her's dictation. All sponge, instrument and needle counts were correct at the conclusion of the procedure. The patient tolerated the procedure well. I attest to the content of the Intraoperative Record and any orders documented therein. Any exceptions are noted below.
--- NOTE | 2020-07-17 10:38 | Post Operative Brief Note ---
Immediate Post Op Note v1 Date of Surgery July 17, 2020 Pre & Post Diagnosis Operation Date: 06/16/20 14:00 Pre-Op Diagnosis: Right leg ischemia Post-Op Diagnosis: Right leg ischemia Operation Date: 07/17/20 07:00 Pre-Op Diagnosis: Buttock wound Dehiscence of above knee amputation stump Post-Op Diagnosis: Buttock wound Dehiscence of above knee amputation stump I identified the patient and participated in the time-out.: Yes Procedure Operation Date: 06/16/20 14:00 Actual Procedures p Right Above Knee Amputation(Right) - Arnulfo Her MD Operation Date: 07/17/20 07:00 Actual Procedures p Sacral Decubitus Ulcer Debridement(Not Applicable) - Jack Mayers, DO, FACS s Debridement of Stump with Revision(Right) - Arnulfo Her MD Surgeon Arnulfo Her MD Retail Grocer MD Clifford Estimated Blood Loss 20 Findings Consistent with Post-Op Diagnosis Drains Godoy Catheter (from inpatient floor) Anesthesia Type General Complications none Disposition Accompanied Patient To Recovery: No Disposition: Recovery Room
--- NOTE | 2020-07-17 10:45 | Operative Report ---
Post Operative Report Pre & Post Diagnosis Operation Date: 06/16/20 14:00 Pre-Op Diagnosis: Right leg ischemia Post-Op Diagnosis: Right leg ischemia Operation Date: 07/17/20 07:00 Pre-Op Diagnosis: Buttock wound Dehiscence of above knee amputation stump Post-Op Diagnosis: Buttock wound Dehiscence of above knee amputation stump I identified the patient and participated in the time-out.: Yes Procedure Operation Date: 06/16/20 14:00 Actual Procedures p Right Above Knee Amputation(Right) - Arnulfo Her MD Operation Date: 07/17/20 07:00 Actual Procedures p Sacral Decubitus Ulcer Debridement(Not Applicable) - Jack Mayers DO, FACS s Debridement of Stump with Revision(Right) - Arnulfo Her MD Surgeon Kandice Curry MD Machine Cloth Measurer MD Clifford Estimated Blood Loss 20 Findings See Below Specimens None Anesthesia Type General Complications none Disposition Accompanied Patient To Recovery: No Disposition: Recovery Room Indications Non-healing right above-knee amputation stump wound Description of Procedure The patient initially underwent a debridement of a sacral decubitus ulcer, which was performed by general surgery (Dr. Mayers). Please see his operative report for details regarding this portion of the procedure. Following completion of this, for which the patient had been positioned prone, the patient was transferred over the the stretcher and back onto the operating table and placed in the supine position. The right above knee amputation stump was prepped and draped in the usual sterile fashion. A team timeout was performed. The patient's identity and surgical procedure and surgical site were verified. A scalpel was u sed to excise approximately 10cm of skin proximal to the prior amputation suture line, and this was performed circumferentially. Then, the underlying muscle was examined. Several muscles were dusky and did not react to bovie cautery, thus were deemed non-viable. These muscles were excised. The remaining muscles appeared healthier than those removed, but some did have some reduced reaction to bovie cautery. These were left in place as we did need adequate coverage for our flap. No overtly non-viable muscle was left in our surgical site. We freed up the muscle and soft tissue from the femur. A bone saw was used to excise additional femur, about 15cm in length. Vessels were tied off including the superficial femoral artery, which was not bleeding when it was transected. The sciatic nerve was identified, freed up, and pulled downward. A tie was placed as proximally as we could reach in our field and the nerve was transected and allowed to retract proximally. Then, we tacked the remaining muscle over the femur using 2-0 vicryl sutures. Excess skin and subcutaneous tissue were excised. The fascia was closed with 2-0 vicryl suture. The skin was closed with armando. The stump was wrapped in kerlix gauze, and then wrapped in ioban. The patient tolerated the procedure well and without immediate complication. At the conclusion of the case all instrument, sponge, and needle counts were correct. The patient was taken to the recovery room in satisfactory condition. Dr. Her was present and scrubbed for the entire procedure. I attest to the content of the Intraoperative Record and any orders documented therein. Any exceptions are noted below.
--- NOTE | 2020-07-17 11:35 | Anesthesiology Progress Note ---
Date of Service July 17, 2020 Anesthesia Post Procedure Vital Signs Vital Signs: Temp Pulse Pulse Pulse Resp BP Pulse Ox 07/17/20 11:25 85 18 100/66 100 07/17/20 11:15 79 19 120/71 100 07/17/20 11:05 81 17 107/68 97 07/17/20 10:56 97.3 F L 87 14 152/75 H 99 07/17/20 07:00 97.9 F 93 H 20 129/75 97 07/16/20 22:45 98.2 F 94 H 18 123/74 97 07/16/20 21:13 103 H 119/76 98 07/16/20 15:17 98.2 F 97 H 16 112/72 99 Pain Intensity Right Leg: Pain Intensity: 10 Chest: Pain Intensity: 3 Bilateral Ribs: Pain Intensity: 10 Bilateral Buttock: Pain Intensity: 9 Transfer of Care Handoff Completed per policy Notes Mental Status: alert / awake / arousable and participated in evaluation Patient Amnestic to Procedure: Yes Nausea / Vomiting: adequately controlled Pain: adequately controlled Airway Patency, RR, SpO2: stable & adequate BP & HR: stable & adequate Hydration State: stable & adequate Anesthetic Complications: no major complications apparent and Pt Satisfied with anesthetic care
[2020-07-17] MEDS ORDERED: MoRPHine SULFATE 4 MG/ML 1 ML CARP\\VIAL IV PRN (12:10)
[2020-07-17] MEDS: POTASSIUM CHLORIDE 20 MEQ/15 ML UDC PO SCH (12:41)
[2020-07-17] MEDS: FLUTICASONE/VILANTEROL 100/25MCG 14 PUFFS/INHALER INH SCH (12:41)
[2020-07-17] MEDS: UMECLIDINIUM BROMIDE 62.5MCG/BLISTER 7 PUFFS/INHALER INH SCH (12:41)
[2020-07-17] MEDS: FUROSEMIDE 40 MG TAB PO SCH (12:42)
[2020-07-17] MEDS: predniSONE 5 MG TAB PO SCH ×2 (12:42→19:49)
[2020-07-17] MEDS: LIDOCAINE 5% 1 PATCH TD SCH (12:42)
[2020-07-17] MEDS: METOPROLOL SUCC 25MG EXT REL TAB PO SCH ×2 (12:42→19:48)
[2020-07-17] MEDS: guaiFENesin 600 MG TABCR PO SCH ×2 (12:42→19:47)
[2020-07-17] MEDS: CETIRIZINE HCL 10 MG TABLET PO SCH (12:42)
[2020-07-17] MEDS: FLUTICASONE PROPIONATE NA SPR 16 GM BTL NAE SCH ×2 (12:45→19:47)
[2020-07-17] MEDS: oxyCODONE HCL IR 5 MG TAB (IMMEDIATE RELEASE) PO PRN ×2 (15:32→19:46)
[2020-07-17] MEDS ORDERED: KETOROLAC TROMETHAMINE 15 MG/ML VIAL IV ONE (17:37)
--- NOTE | 2020-07-17 18:07 | Billing Data ---
Date of Service July 17, 2020 Coding Level of Care Code 22268 Subseq Hosp Care Lvl 3
[2020-07-18] MEDS: ACETAMINOPHEN 500 MG TAB PO SCH ×3 (05:36→22:07)
[2020-07-18] MEDS: KETOROLAC TROMETHAMINE 15 MG/ML VIAL IV PRN ×3 (05:42→22:11)
[2020-07-18] MEDS ORDERED: VANCOMYCIN HCL 1,000 MG/270 ML BAG IV SCH (06:00)
[2020-07-18 06:30] LABS: INR 1.5 (0.9-1.1); Partial Thromboplastin Ratio 1.3; Partial Thromboplastin Time 34.7 Seconds (21.0-31.0); Prothrombin Time 15.1 Seconds (9.0-12.0)
[2020-07-18 06:40] LABS: Hematocrit (blood only) 21.8 % (42-52); Hemoglobin 6.9 g/dL (14.0-18.0); Mean Corpuscular Hemoglobin 29.4 pg (25-34); Mean Corpuscular Hgb Conc 31.7 g/dL (32-36); Mean Corpuscular Volume 92.8 fL (80-100); Mean Platelet Volume 11.2 fL (7.4-10.4); Platelet Count 199 K/uL (130-400); RDW Coefficient of Variation 16.5 % (11.5-14.5); RDW Standard Deviation 54.7 fL (36.4-46.3); Red Blood Count 2.35 M/uL (4.7-6.1)
[2020-07-18 06:49] LABS: Basophils # (auto) 0.02 K/uL (0-0.2); Basophils % (auto) 0.1 %; Eosinophils # (auto) 0.01 K/uL (0-0.5); Eosinophils % (auto) 0.1 %; Immature Granulocytes # (auto) 0.11 K/uL (0.00-0.02); Immature Granulocytes % (auto) 0.7 %; Lymphocytes # (auto) 2.99 K/uL (1.2-3.4); Lymphocytes % (auto) 17.9 %; Monocytes # (auto) 1.66 K/uL (0.11-0.59); Monocytes % (auto) 9.9 %; Neutrophils # (auto) 11.91 K/uL (1.4-6.5); Neutrophils % (auto) 71.3 %; RBC Morphology Unremarkable; Toxic Granulation Occasional; Toxic Vacuolation Occasional
[2020-07-18 07:03] LABS: Albumin Level 1.7 gm/dl (3.4-5.0); BUN Creatinine Ratio 18.9 (10-20); Calcium 7.7 mg/dl (8.5-10.1); Creatinine Clr Calc Pharmacy 57.1 ml/min; Est GFR (African American) 103.2; Est GFR (Non-African American) 89.1; Potassium 4.3 mmol/L (3.5-5.1)
[2020-07-18 07:05] LABS: Albumin Globulin Ratio 0.4 (0.9-2); Bilirubin,Total 0.4 mg/dl (0.2-1); Globulin 4.4 gm/dl (2.5-4.0); Total Protein 6.1 gm/dl (6.4-8.2)
--- NOTE | 2020-07-18 07:06 | Hospitalist Progress Note ---
Date of Service July 18, 2020 Assessment & Plan (1) Buttock wound: Sukhjinder Lomeli is a 75 y/o male with hx of CAD, HTN, HLD, and COPD admitted for severe sepsis with acute hypoxic respiratory failure and is s/p R AKA for critical limb ischemia. This has been a prolonged hospitalization >30 days, complicated by bilateral PEs, pulmonary edema, pneumonia, and buttock eschar. Symptomatic anemia - Hb 6.9 07/18 AM - transfused 1 unit pRBC, w/ symptom improvement - f/u CBC on 07/19 Eschar Wound on Buttock - s/p debridement procedure 07/17 - 07/18 leukocytosis 9.75->16.7 likely 06/06 surgery. will follow WBC - continue prn toradol, tylenol, morphine, dilaudid - 07/18 added gabapentin 300 mg BID17. did not increase frequency of q8h toradol because of increased side effects (bleeding risk) - continue wound care Critical RLE Ischemia, s/p AKA, - wound dehiscence and necrosis. 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 O2 requirement 3-3.5L while here. No O2 requirement prior to admission. - Continue diuretics to maintain negative I&O balance. 07/17-07/18 24 hr Is/Os: 800 ml in 1300 ml out. cumulative 35L in 53L out - Vibratory vest PRN - low sodium diet Bilateral Pulmonary Emboli - on CT-A 06/26 - Anticipate restarting warfarin 2mg PO daily after bridge. Goal INR 2-3. 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 - Went into cardiac arrest in OR prior to R AKA this current admission - TTE 06/28 LV sys fxn normal (55-60%), RV systolic pressure is elevated at 40- 50mmHg - TTE in 2017 showed reduced EF 40-45%, but that was transient, in setting of LA - Continue home metoprolol succinate 12.5mg b.i.d. - continue furosemide 40 mg PO daily - Strict I&Os, daily weights HLD: Holding home atorvastatin HTN: Holding home isosorbide mononitrate, HCTZ, lisinopril CODE STATUS: DNR/DNI FEN/GI: low-sodium diet. No mIVF. DVT prophylaxis: ON HOLD. defer heparin bridge another day because of the symptomatic anemia Dispo: Med/surg. anticipate d/c to inpatient rehabilitation when appropriate. (2) Amputation above knee: (3) Dehiscence of amputation stump: (4) Peripheral vascular disease: (5) Cardiomyopathy, ischemic: (6) CAD (coronary artery disease): (7) Sepsis with acute hypoxic respiratory failure: (8) Symptomatic anemia: Admission and Anticipated Discharge Date Admission Date: June 11, 2020 Supervising Physician Co-Signing Physician Notes I personally examined the patient and verified all flynn points of history and exam, discussed case, and agree with decision making with Dr Stanley. Pain still fairly uncontrolled Vitals noted, in general he is awake and alert pleasant appears to be mildly uncomfortable but otherwise no distress. HEENT normocephalic atraumatic mucous membranes moist. Breathing unlabored no accessory muscle use good effort. Skin shows no rashes no pallor or icterus. Sacral ulcer now status post debridement. Ongoing local wound care Critical limb ischemia status post amputation now with stump wound dehiscencestatus post surgical revision. Uncontrolled painhe very much wants to avoid narcotics when possible, although he notes "if absolutely necessary "he is okay with itwe discussed that right now other than has been through certainly is a time where there is a lot of intense and significant pain where narcotics may be "absolutely necessary"at the same time we will continue with scheduled Tylenol, as needed Toradol, in addition to narcotic pain medicines. And given how long the pain has been going on and her likely will continue to go onwe will add/titrate gabapentin. Acute blood loss anemianot surprising given the extent that his surgical procedures required. Does not appear to show ongoing bleeding, did warrant 1 unit transfusion, and for now we will need to continue to hold off on heparin un til its clear is no longer showing ongoing blood loss PEresume heparin drip as soon as is safe Subjective This morning, patient had Hb of 6.9. He was assessed at bedside and was symptomatic w/ generalized weakness, mild lightheadedness, and worsened headache. BPs were soft w/ low of 91/51. He was transfused w/ 1 unit of packed RBCs. In the afternoon, his symptoms resolved. His BP improved to ~110/70. He is still having significant pain and stump and buttock. Patient requested increased frequency of Toradol as he wants to avoid narcotic medications as much as possible. Review of Systems Review of Systems: Constitutional: Denies fever, chills Eyes: Denies blurry vision Cardiovascular: Denies chest pain Respiratory: Denies shortness of breath Gastrointestinal: Denies abdominal pain, nausea, vomiting Genitourinary: Denies urinary symptoms including dysuria Musculoskeletal: + weakness, resolved in PM Neurological: + headache, resolved in PM Physical Exam Physical Exam: General: Grossly A&O. Cooperative. In AM, was sitting in chair and appeared uncomfortable. HEENT: Atraumatic, normocephalic. Pulm: CTAB. -wheezes, -rales, -rhonchi. No respiratory distress. Cardiac: RRR, -mrg. Integumentary: R AKA stump is wrapped in plastic dressing. Results & Data Results & Data ([facility]) Vital Signs (Past 12 Hours) Vital Signs Temp Pulse Resp BP BP Pulse Ox 07/18/20 07:00 36.9 C 80 18 86/56 L 98 07/18/20 05:35 36.9 C 85 16 91/55 L 98 07/18/20 02:43 80 91/51 L 99 07/18/20 01:18 36.8 C 80 17 91/50 L 96 07/17/20 22:26 93/51 L 07/17/20 22:14 36.9 C 87 17 89/54 L 95 07/17/20 19:48 37.1 C 98 H 17 114/66 99 Resident Activity Tracking Resident Involvement: Resident Care Provided Care Provided: Adult Hospital Medicine (1) CAD (coronary artery disease) Associated angina: with stable angina Coronary Disease-Associated Artery/Lesion type: [place] artery [place] vs. transplanted heart: [place] heart Qualified Code(s): I25.118 - Atherosclerotic heart disease of [place] coronary artery with other forms of angina pectoris
[2020-07-18] MEDS: guaiFENesin 600 MG TABCR PO SCH ×2 (07:58→22:07)
[2020-07-18] MEDS: predniSONE 5 MG TAB PO SCH ×2 (07:58→22:08)
[2020-07-18] MEDS: LIDOCAINE 5% 1 PATCH TD SCH (07:59)
[2020-07-18] MEDS: POTASSIUM CHLORIDE 20 MEQ/15 ML UDC PO SCH (07:59)
[2020-07-18] MEDS: FLUTICASONE/VILANTEROL 100/25MCG 14 PUFFS/INHALER INH SCH (08:00)
[2020-07-18] MEDS: UMECLIDINIUM BROMIDE 62.5MCG/BLISTER 7 PUFFS/INHALER INH SCH (08:00)
[2020-07-18] MEDS: FLUTICASONE PROPIONATE NA SPR 16 GM BTL NAE SCH ×2 (08:00→22:05)
[2020-07-18] MEDS: FUROSEMIDE 40 MG TAB PO SCH (08:01)
[2020-07-18] MEDS: METOPROLOL SUCC 25MG EXT REL TAB PO SCH ×2 (08:01→22:06)
[2020-07-18] MEDS ORDERED: SODIUM CHLORIDE 0.9% 250 ML IV PRN (09:25)
[2020-07-18] MEDS: oxyCODONE HCL IR 5 MG TAB (IMMEDIATE RELEASE) PO PRN ×3 (09:37→15:01)
--- NOTE | 2020-07-18 10:36 | Surgery Progress Note ---
Date of Service July 18, 2020 Assessment & Plan (1) Sacral decubitus ulcer: POD#1 debridement of sacral decubitus ulcer Patient with some hypotension overnight. Hbg 6.9 (8.2). HR's in the 80s He is ordered for blood transfusion today Sacrum evaluated at bedside with wound care. No active bleeding appreciated. Dressings remained intact overnight. Appreciate wound care's expertise on preference of dressings whether it be packing, aquacel, or if they can somehow find a way to place a vac, although there is not much skin bridge between wound and anus to likely get a good seal If any further surgical intervention is required of this wound pt would benefit from a tertiary care center due to how extensive it is Admission and Anticipated Discharge Date Admission Date: June 11, 2020 Subjective Patient seen and examined with wound care at bedside. Physical Exam Physical Exam: awake/alert Constitutional: no acute distress Skin: large sacral ulcer s/p debridement to R buttocks, packing removed at bedside. Sanguinous drainage on Kerlex dressing removed. no active bleeding seen. Results & Data ([facility]) Vital Signs (Past 12 Hours) Vital Signs Temp Pulse Resp BP Pulse Ox 07/18/20 07:00 36.9 C 80 18 86/56 L 98 07/18/20 05:35 36.9 C 85 16 91/55 L 98 07/18/20 02:43 80 91/51 L 99 07/18/20 01:18 36.8 C 80 17 91/50 L 96 PG Care Time/CCT Total # of Minutes Spent Total Time Spent with Patient: Total time spent is greater than 50% in coordination of care (as documented) at patient's floor/unit and/or counseling patient: Coding Level of Care Code None Diagnoses Sacral decubitus ulcer L89.159
[2020-07-18] MEDS: GABAPENTIN 300 MG CAP PO SCH (17:08)
--- NOTE | 2020-07-18 20:37 | Billing Data ---
Date of Service July 18, 2020 Coding Level of Care Code 81587 Subseq Hosp Care Lvl 3
[2020-07-19] MEDS: oxyCODONE HCL IR 5 MG TAB (IMMEDIATE RELEASE) PO PRN ×3 (00:55→17:43)
[2020-07-19] MEDS: ACETAMINOPHEN 500 MG TAB PO SCH ×3 (05:26→20:59)
[2020-07-19 06:45] LABS: INR 1.2 (0.9-1.1); Partial Thromboplastin Ratio 1.4; Partial Thromboplastin Time 36.7 Seconds (21.0-31.0); Prothrombin Time 11.8 Seconds (9.0-12.0)
[2020-07-19 06:46] LABS: Basophils # (auto) 0.01 K/uL (0-0.2); Basophils % (auto) 0.1 %; Eosinophils # (auto) 0.01 K/uL (0-0.5); Eosinophils % (auto) 0.1 %; Hematocrit (blood only) 26.1 % (42-52); Hemoglobin 8.3 g/dL (14.0-18.0); Immature Granulocytes # (auto) 0.16 K/uL (0.00-0.02); Immature Granulocytes % (auto) 0.8 %; Lymphocytes % (auto) 15.4 %; Mean Corpuscular Hemoglobin 27.9 pg (25-34); Mean Corpuscular Hgb Conc 31.8 g/dL (32-36); Mean Corpuscular Volume 87.6 fL (80-100); Mean Platelet Volume 12.2 fL (7.4-10.4); Monocytes # (auto) 1.76 K/uL (0.11-0.59); Neutrophils # (auto) 14.52 K/uL (1.4-6.5); Neutrophils % (auto) 74.6 %; Platelet Count 185 K/uL (130-400); RDW Coefficient of Variation 18.6 % (11.5-14.5); RDW Standard Deviation 59.8 fL (36.4-46.3); Red Blood Count 2.98 M/uL (4.7-6.1); White Blood Count 19.46 K/uL (4.8-10.8)
--- NOTE | 2020-07-19 07:11 | Hospitalist Progress Note ---
Date of Service July 19, 2020 Assessment & Plan (1) Buttock wound: Sukhjinder Lomeli is a 75 y/o male with hx of CAD, HTN, HLD, and COPD admitted for severe sepsis with acute hypoxic respiratory failure and is s/p R AKA for critical limb ischemia. This has been a prolonged hospitalization >30 days, complicated by bilateral PEs, pulmonary edema, pneumonia, and buttock eschar. leukocytosis - uptrending 9.75->16.7->19.46 (07/19). May be secondary to debridement procedure. Clinically well and afebrile. Pulmonary edema vs infection also on differential; will monitor clinically. Symptomatic anemia, resolved - Hb 6.9 07/18 AM - transfused 1 unit pRBC, w/ symptom improvement - f/u CBC on 07/19 Eschar Wound on Buttock - s/p debridement procedure 07/17 - 07/18 leukocytosis 9.75->16.7 likely 06/06 surgery. will follow WBC - continue prn toradol, tylenol, morphine, dilaudid - 07/18 added gabapentin 300 mg BID17. did not increase frequency of q8h toradol because of increased side effects (bleeding risk) - continue wound care - slow wound healing. 07/19 nutrition recommended adding vitamin infusion Critical RLE Ischemia, s/p AKA, - wound dehiscence and necrosis. 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 O2 requirement 3-3.5L while here. No O2 requirement prior to admission. - Continue diuretics to maintain negative I&O balance. 07/18-07/19 24 hr Is/Os: 800 in 900 out. cumulative 35L in 54L out. - Vibratory vest PRN - low sodium diet Bilateral Pulmonary Emboli - on CT-A 06/26 - Anticipate restarting warfarin 2mg PO daily after bridge. Goal INR 2-3. 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 - Went into cardiac arrest in OR prior to R AKA this current admission - TTE 06/28 LV sys fxn normal (55-60%), RV systolic pressure is elevated at 40- 50mmHg - TTE in 2016 showed reduced EF 40-45%, but that was transient, in setting of ID - Continue home metoprolol succinate 12.5mg b.i.d. - continue furosemide 40 mg PO daily - Strict I&Os, daily weights HLD: Holding home atorvastatin HTN: Holding home isosorbide mononitrate, HCTZ, lisinopril CODE STATUS: DNR/DNI FEN/GI: low-sodium diet. No mIVF. DVT prophylaxis: 07/19 restarted heparin drip for bridge before transitioning to warfarin Dispo: Med/surg. anticipate d/c to inpatient rehabilitation when appropriate. (2) Amputation above knee: (3) Dehiscence of amputation stump: (4) Peripheral vascular disease: (5) Cardiomyopathy, ischemic: (6) CAD (coronary artery disease): (7) Sepsis with acute hypoxic respiratory failure: (8) Symptomatic anemia: Admission and Anticipated Discharge Date Admission Date: June 11, 2020 Supervising Physician Co-Signing Physician Notes I personally examined the patient and verified all flynn points of history and exam, discussed case, and agree with decision making with Dr Stanley pain better controlled - notes that outside of dressing changes, it's about a 7, which is tolerable for him Vitals noted, in general he is awake and alert pleasant appears to be mildly uncomfortable but otherwise no distress. HEENT normocephalic atraumatic mucous membranes moist. Breathing unlabored no accessory muscle use good effort - somewhat quiet but no adventitious sounds, no r/r/w. Skin shows no rashes no pallor or icterus. Sacral ulcer now status post debridement. Ongoing local wound care, leukocytosis noted but w no overt cellulitis and reassuring procal (sharda when compared to prior ) hold on abx for now - continue local care Critical limb ischemia status post amputation now with stump wound dehiscencestatus post surgical revision. as above w sacral ulcer Uncontrolled painnow doing better, continue gabapentin and prior regimen leukocytosis - no clear infections at this time - likely demargination Acute blood loss anemianot surprising given the extent that his surgical procedures required. Does not appear to show ongoing bleeding, did warrant 1 unit transfusion, now stable enough to resume heparin gtt PEresume heparin drip and follow closely Subjective Pain is 8-9/10, better than yesterday. He feels the gabapentin helped. No complaints this AM. No headache, lightheadedness, weakness. Review of Systems Review of Systems: Constitutional: Denies fever, chills Eyes: Denies blurry vision Cardiovascular: Denies chest pain Respiratory: SOB only w/ exertion/talking; chronic Gastrointestinal: Denies abdominal pain, nausea, vomiting, constipation, diarrhea Genitourinary: Denies urinary discomfort. Has olmedo. Musculoskeletal: Denies weakness, muscle aches/pain, joint aches/pain Neurological: Denies headache, numbness, tingling Physical Exam Physical Exam: General: Grossly A&O. NAD. Cooperative. HEENT: Atraumatic, normocephalic. EOMI Pulm: Anterior lung lua: mild expiratory rhonchi, worse on R. No respiratory distress. Cardiac: RRR, -mrg. Abdominal: Nontender, nondistended, soft. Integumentary: R AKA stump is wrapped. Buttock wound has wound vac, exam deferred. Results & Data Results & Data ([facility]) Vital Signs (Past 12 Hours) Vital Signs Temp Pulse Pulse Pulse Resp BP BP 07/19/20 01:02 36.6 C 87 18 113/69 07/18/20 22:04 101 H 116/65 07/18/20 21:25 37.0 C 94 H 14 100/61 07/18/20 20:33 84 105/62 Pulse Ox 07/19/20 01:02 94 07/18/20 22:04 07/18/20 21:25 94 07/18/20 20:33 Resident Activity Tracking Resident Involvement: Resident Care Provided Care Provided: Adult Hospital Medicine (1) CAD (coronary artery disease) Associated angina: with stable angina Coronary Disease-Associated Artery/Lesion type: [place] artery [place] vs. transplanted heart: [place] heart Qualified Code(s): I25.118 - Atherosclerotic heart disease of [place] coronary artery with other forms of angina pectoris
[2020-07-19] MEDS: METOPROLOL SUCC 25MG EXT REL TAB PO SCH ×2 (09:40→21:01)
[2020-07-19] MEDS: LIDOCAINE 5% 1 PATCH TD SCH (09:40)
[2020-07-19] MEDS: guaiFENesin 600 MG TABCR PO SCH ×2 (09:41→21:00)
[2020-07-19] MEDS: FUROSEMIDE 40 MG TAB PO SCH (09:41)
[2020-07-19] MEDS: GABAPENTIN 300 MG CAP PO SCH ×2 (09:41→17:43)
[2020-07-19] MEDS: predniSONE 5 MG TAB PO SCH ×2 (09:41→21:02)
[2020-07-19] MEDS: POTASSIUM CHLORIDE 20 MEQ/15 ML UDC PO SCH (09:42)
[2020-07-19] MEDS: UMECLIDINIUM BROMIDE 62.5MCG/BLISTER 7 PUFFS/INHALER INH SCH (09:43)
[2020-07-19] MEDS: FLUTICASONE/VILANTEROL 100/25MCG 14 PUFFS/INHALER INH SCH (09:43)
[2020-07-19] MEDS: FLUTICASONE PROPIONATE NA SPR 16 GM BTL NAE SCH ×2 (09:43→21:00)
--- NOTE | 2020-07-19 11:59 | Surgery Progress Note ---
Date of Service July 19, 2020 Assessment & Plan (1) Sacral decubitus ulcer: POD 2 wound debridement vac in place, will check back every few days or call if there any new concerns Admission and Anticipated Discharge Date Admission Date: June 11, 2020 Subjective has found comfortable position, trying to avoid pressure on wound Physical Exam Physical Exam: wound vac in place Results & Data ([facility]) Vital Signs (Past 12 Hours) Vital Signs Temp Pulse Pulse Resp BP Pulse Ox 07/19/20 08:26 37.1 C 84 18 104/68 93 07/19/20 01:02 36.6 C 87 18 113/69 94 PG Care Time/CCT Total # of Minutes Spent Total Time Spent with Patient: Total time spent is greater than 50% in coordination of care (as documented) at patient's floor/unit and/or counseling patient: Coding Level of Care Code None Diagnoses Sacral decubitus ulcer L89.159
[2020-07-19] MEDS ORDERED: HEPARIN IV BOLUS 2,000 UNITS in SYRINGE 0 ML IV ONE (12:00)
[2020-07-19] MEDS: KETOROLAC TROMETHAMINE 15 MG/ML VIAL IV PRN ×2 (12:49→20:55)
--- NOTE | 2020-07-19 13:12 | Surgery Progress Note ---
Date of Service July 19, 2020 Assessment & Plan (1) Dehiscence of amputation stump: Pt doing well post op from RLE AKA revision. Wound can be left open to air. Will see in office in 2-3 weeks for staple removal. Please call if needed. Admission and Anticipated Discharge Date Admission Date: June 11, 2020 Subjective 75 yo m POD #2 after RLE AKA stump revision, seen in f/u today. Pt states he is improving, no new c/o related to RLE surgical site. Review of Systems Review of Systems: All systems reviewed & are unremarkable except as noted in HPI & below Physical Exam Constitutional: + ill appearing, + frail appearing and + disheveled; not in distress Skin: + incision (RLE AKA site C/D/I with armando. +tender, no erythema) Results & Data ([facility]) Vital Signs (Past 12 Hours) Vital Signs Temp Pulse Resp BP Pulse Ox 07/19/20 08:26 37.1 C 84 18 104/68 93
[2020-07-19] MEDS: HEPARIN SODIUM/DEXTROSE 25,000 UNITS/500 ML BAG IV SCH (14:49)
--- NOTE | 2020-07-19 18:42 | Billing Data ---
Date of Service July 19, 2020 Coding Level of Care Code 07280 Subseq Hosp Care Lvl 3
[2020-07-19 21:16] LABS: Partial Thromboplastin Ratio 1.8
[2020-07-19 21:19] LABS: Partial Thromboplastin Time 46.4 Seconds (21.0-31.0)
[2020-07-20] MEDS: oxyCODONE HCL IR 5 MG TAB (IMMEDIATE RELEASE) PO PRN ×5 (02:36→21:52)
[2020-07-20] MEDS: ACETAMINOPHEN 500 MG TAB PO SCH ×3 (05:40→21:43)
[2020-07-20 06:19] LABS: Basophils # (auto) 0.01 K/uL (0-0.2); Basophils % (auto) 0.1 %; Eosinophils # (auto) 0.01 K/uL (0-0.5); Eosinophils % (auto) 0.1 %; Hematocrit (blood only) 23.7 % (42-52); Hemoglobin 7.6 g/dL (14.0-18.0); Immature Granulocytes # (auto) 0.14 K/uL (0.00-0.02); Lymphocytes % (auto) 18.1 %; Mean Corpuscular Hemoglobin 27.9 pg (25-34); Mean Corpuscular Hgb Conc 32.1 g/dL (32-36); Mean Corpuscular Volume 87.1 fL (80-100); Mean Platelet Volume 11.4 fL (7.4-10.4); Monocytes # (auto) 1.22 K/uL (0.11-0.59); Monocytes % (auto) 8.5 %; Neutrophils % (auto) 72.2 %; Platelet Count 176 K/uL (130-400); RDW Coefficient of Variation 18.7 % (11.5-14.5); Red Blood Count 2.72 M/uL (4.7-6.1); White Blood Count 14.38 K/uL (4.8-10.8)
[2020-07-20 06:46] LABS: Albumin Level 1.3 gm/dl (3.4-5.0); BUN Creatinine Ratio 41.9 (10-20); Est GFR (African American) 114.8; Est GFR (Non-African American) 99.1; Polychromasia 1+; Toxic Granulation Occasional
[2020-07-20 06:49] LABS: Albumin Globulin Ratio 0.3 (0.9-2); Bilirubin,Total 0.3 mg/dl (0.2-1); Globulin 4.4 gm/dl (2.5-4.0); Total Protein 5.7 gm/dl (6.4-8.2)
--- NOTE | 2020-07-20 06:57 | Hospitalist Progress Note ---
Date of Service July 20, 2020 Assessment & Plan (1) Buttock wound: Sukhjinder Lomeli is a 75 y/o male with hx of CAD, HTN, HLD, and COPD admitted for severe sepsis with acute hypoxic respiratory failure and is s/p R AKA for critical limb ischemia. This has been a prolonged hospitalization >30 days, complicated by bilateral PEs, pulmonary edema, pneumonia, and buttock eschar. leukocytosis - uptrended 9.75->16.7->19.46 (07/19), but improving on 07/20, 14.38. May be secondary to debridement procedure. Clinically well and afebrile. Pulmonary edema vs infection also on differential; will monitor clinically. Symptomatic anemia, resolved - Hb 6.9 07/18 AM - transfused 1 unit pRBC, w/ symptom improvement - 8.3 (07/19) ->7.6 (07/20). Eschar Wound on Buttock - s/p debridement procedure 07/17 - 07/18 leukocytosis 9.75->16.7 likely 06/06 surgery. will follow WBC - continue prn toradol, tylenol, morphine, dilaudid - 07/18 added gabapentin 300 mg BID17. did not increase frequency of q8h toradol because of increased side effects (bleeding risk). - 07/20 increased to 300 mg QID because pain relief was not lasting long enough - continue wound care - slow wound healing. 07/19 nutrition recommended adding vitamin infusion Critical RLE Ischemia, s/p AKA, - wound dehiscence and necrosis. 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 O2 requirement 3-3.5L while here. No O2 requirement prior to admission. - Continue diuretics to maintain negative I&O balance. 07/19-07/20=8 24 hr Is/Os: 400 mL in. 1.8L out. cumulative 35L in 56L out. - 07/20 satting mid-upper 90s on 1-2L NC. will likely need supplemental O2 on discharge - Vibratory vest PRN - low sodium diet Bilateral Pulmonary Emboli - on CTA 06/26 - 07/19 restarted heparin bridge - 07/20 started 5 mg warfarin. Goal INR 2-3. 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 - Went into cardiac arrest in OR prior to R AKA this current admission - TTE 06/28 LV sys fxn normal (55-60%), RV systolic pressure is elevated at 40- 50mmHg - TTE in 2016 showed reduced EF 40-45%, but that was transient, in setting of [place] - Continue home metoprolol succinate 12.5mg b.i.d. - continue furosemide 40 mg PO daily - Strict I&Os, daily weights HLD: Holding home atorvastatin HTN: Holding home isosorbide mononitrate, HCTZ, lisinopril CODE STATUS: DNR/DNI FEN/GI: low-sodium diet. No mIVF. DVT prophylaxis: 07/19 restarted heparin drip for bridge. 07/20 PM started warfarin 5mg Dispo: Med/surg. tentative dispo to [facility] when approved (2) Amputation above knee: (3) Dehiscence of amputation stump: (4) Peripheral vascular disease: (5) Cardiomyopathy, ischemic: (6) CAD (coronary artery disease): (7) Sepsis with acute hypoxic respiratory failure: (8) Symptomatic anemia: Admission and Anticipated Discharge Date Admission Date: June 11, 2020 Supervising Physician Co-Signing Physician Notes I personally examined the patient and verified all flynn points of history and exam, discussed case, and agree with decision making with Dr Stanley would like a little tighter pain control - notes gabapentin helps but wears off Vitals noted, in general he is awake and alert pleasant appears to be mildly uncomfortable but otherwise no distress. HEENT normocephalic atraumatic mucous membranes moist. Breathing unlabored no accessory muscle use good effort - somewhat quiet but no adventitious sounds, no r/r/w. Skin shows no rashes no pallor or icterus. Sacral ulcer now status post debridement. Ongoing local wound care, leukocytosis improving Critical limb ischemia status post amputation now with stump wound dehiscencestatus post surgical revision. as above w sacral ulcer Uncontrolled painnow doing better, continue gabapentin (increase to qid) and prior regimen leukocytosis - no clear infections at this time - likely demargination - improving Acute blood loss anemianot surprising given the extent that his surgical procedures required. improved post 1 unit. PEheparin -->coumadin Subjective Patient is doing ok. He denies symptoms of weakness, headache, or dizziness. He has a lot of pain at stump and buttock. Stump bandage has been removed. Review of Systems Review of Systems: Constitutional: Denies fever, chills Eyes: Denies blurry vision, vision changes Cardiovascular: Denies new chest pain Respiratory: Denies shortness of breath Gastrointestinal: Denies abdominal pain, nausea, vomiting, constipation, diarrhea Genitourinary: Denies urinary symptoms including dysuria Musculoskeletal: See HPI Neurological: Denies headache Physical Exam Physical Exam: General: Grossly A&O. NAD. Cooperative. Frail appearance, mildly shaky, unchanged/ mildly improved from yesterday. HEENT: Atraumatic, normocephalic. Pulm: CTAB. -wheezes, -rales, -rhonchi. No respiratory distress. Cardiac: RRR, -mrg. Abdominal: Nontender, nondistended, soft. Integumentary: R stump wound incision is healing appropriately, plastic wrap since removed. No surrounding erythema or discharge. Buttock would has wound vac, did not inspect area on exam. Serosanguinous fluid in wound vac. Results & Data Results & Data ([facility]) Vital Signs (Past 12 Hours) Vital Signs Temp Pulse Resp BP Pulse Ox 07/19/20 22:03 36.9 C 99 H 14 121/67 95 07/19/20 20:49 108/70 92 Resident Activity Tracking Resident Involvement: Resident Care Provided Care Provided: Adult [facility] (1) CAD (coronary artery disease) Associated angina: with stable angina Coronary Disease-Associated Artery/Lesion type: [place] artery [place] vs. transplanted heart: [place] heart Qualified Code(s): I25.118 - Atherosclerotic heart disease of [place] coronary artery with other forms of angina pectoris
[2020-07-20 07:02] LABS: Partial Thromboplastin Ratio 1.9; Prothrombin Time 10.6 Seconds (9.0-12.0)
[2020-07-20 07:14] LABS: Partial Thromboplastin Time 49.5 Seconds (21.0-31.0)
[2020-07-20] MEDS: HEPARIN SODIUM/DEXTROSE 25,000 UNITS/500 ML BAG IV SCH (07:19)
[2020-07-20] MEDS: UMECLIDINIUM BROMIDE 62.5MCG/BLISTER 7 PUFFS/INHALER INH SCH (08:00)
[2020-07-20] MEDS: POTASSIUM CHLORIDE 20 MEQ/15 ML UDC PO SCH (08:00)
[2020-07-20] MEDS: FLUTICASONE/VILANTEROL 100/25MCG 14 PUFFS/INHALER INH SCH (08:00)
[2020-07-20] MEDS: FUROSEMIDE 40 MG TAB PO SCH (08:01)
[2020-07-20] MEDS: METOPROLOL SUCC 25MG EXT REL TAB PO SCH ×2 (08:01→21:42)
[2020-07-20] MEDS: GABAPENTIN 300 MG CAP PO SCH ×3 (08:02→21:44)
[2020-07-20] MEDS: predniSONE 5 MG TAB PO SCH ×2 (08:03→21:43)
[2020-07-20] MEDS: FLUTICASONE PROPIONATE NA SPR 16 GM BTL NAE SCH ×2 (08:03→21:42)
[2020-07-20] MEDS: LIDOCAINE 5% 1 PATCH TD SCH (08:03)
[2020-07-20] MEDS: guaiFENesin 600 MG TABCR PO SCH ×2 (08:03→21:42)
[2020-07-20] MEDS: KETOROLAC TROMETHAMINE 15 MG/ML VIAL IV PRN (11:51)
[2020-07-20] MEDS ORDERED: WARFARIN SOD 5 MG TAB PO SCH (18:00)
--- NOTE | 2020-07-20 19:22 | Billing Data ---
Date of Service July 20, 2020 Coding Level of Care Code 02845 Subseq Hosp Care Lvl 3
[2020-07-21] MEDS: oxyCODONE HCL IR 5 MG TAB (IMMEDIATE RELEASE) PO PRN ×3 (04:18→16:37)
[2020-07-21] MEDS: ACETAMINOPHEN 500 MG TAB PO SCH ×2 (05:46→13:44)
[2020-07-21 06:27] LABS: Basophils # (auto) 0.02 K/uL (0-0.2); Basophils % (auto) 0.2 %; Eosinophils # (auto) 0.04 K/uL (0-0.5); Eosinophils % (auto) 0.3 %; Hematocrit (blood only) 25.6 % (42-52); Hemoglobin 8.1 g/dL (14.0-18.0); Immature Granulocytes # (auto) 0.13 K/uL (0.00-0.02); Lymphocytes % (auto) 21.1 %; Mean Corpuscular Hemoglobin 27.9 pg (25-34); Mean Corpuscular Hgb Conc 31.6 g/dL (32-36); Mean Corpuscular Volume 88.3 fL (80-100); Mean Platelet Volume 11.8 fL (7.4-10.4); Monocytes # (auto) 1.14 K/uL (0.11-0.59); Monocytes % (auto) 8.6 %; Neutrophils # (auto) 9.11 K/uL (1.4-6.5); Neutrophils % (auto) 68.8 %; Platelet Count 207 K/uL (130-400); RDW Coefficient of Variation 18.3 % (11.5-14.5); White Blood Count 13.24 K/uL (4.8-10.8)
[2020-07-21 06:39] LABS: Partial Thromboplastin Ratio 1.6; Prothrombin Time 10.3 Seconds (9.0-12.0)
[2020-07-21 06:55] LABS: Creatinine Clr Calc Pharmacy 88.5 ml/min; Est GFR (African American) 123.6; Est GFR (Non-African American) 106.6; Potassium 4.3 mmol/L (3.5-5.1)
--- NOTE | 2020-07-21 07:14 | Hospitalist Progress Note ---
Date of Service July 21, 2020 Assessment & Plan (1) Buttock wound: Suhkjinder Lomeli is a 75 y/o male with hx of CAD, HTN, HLD, and COPD admitted for severe sepsis with acute hypoxic respiratory failure and is s/p R AKA for critical limb ischemia. This has been a prolonged hospitalization >30 days, complicated by bilateral PEs, pulmonary edema, pneumonia, and buttock eschar. leukocytosis - uptrended 9.75->16.7->19.46 (07/19), but improving on 07/20, 14.38. May be secondary to debridement procedure. Clinically well and afebrile. Pulmonary edema vs infection also on differential; will monitor clinically. Symptomatic anemia, resolved - Hb 6.9 07/18 AM - transfused 1 unit pRBC, w/ symptom improvement - 8.3 (07/19) ->7.6 (07/20). Eschar Wound on Buttock - s/p debridement procedure 07/17 - 07/18 leukocytosis 9.75->16.7 likely 06/06 surgery. will follow WBC - continue prn toradol, tylenol, morphine, dilaudid - 07/18 added gabapentin 300 mg BID17. did not increase frequency of q8h toradol because of increased side effects (bleeding risk). - 07/20 increased to 300 mg QID because pain relief was not lasting long enough - continue wound care - slow wound healing. 07/19 nutrition recommended adding vitamin infusion Critical RLE Ischemia, s/p AKA, - wound dehiscence and necrosis. s/p debridement 07/17 - pain control and wound care as per above - 07/11 R leg wound culture yeast not genet albicans, moderate - Inpatient rehab with orthotic fitting preferred at discharge Severe Protein-Calorie Malnutrition - actimize architect following - OK to liberalize diet --> Regular diet ordered - Continue supplementation PRN Acute Hypoxemic Respiratory Failure - Multifactorial including pneumonia, COPD with significant tobacco use ( > 55 pack-year history), bilateral PE, pulmonary edema/effusions, previous PNA (resolved) - Significantly improved O2 requirement and work of breathing from prior (<=3L from 5L in previous weeks) - Goal SpO2: 88-92%. O2 requirement 3-3.5L while here. No O2 requirement prior to admission. - Continue diuretics to maintain negative I&O balance. 07/19-07/20=8 24 hr Is/Os: 400 mL in. 1.8L out. cumulative 35L in 56L out. - 07/20 satting mid-upper 90s on 1-2L NC. will likely need supplemental O2 on discharge - Vibratory vest PRN - low sodium diet Bilateral Pulmonary Emboli - on CTA 06/26 - 07/19 restarted heparin bridge - 07/20 started 5 mg warfarin. Goal INR 2-3. 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 - Went into cardiac arrest in OR prior to R AKA this current admission - TTE 06/28 LV sys fxn normal (55-60%), RV systolic pressure is elevated at 40- 50mmHg - TTE in 2016 showed reduced EF 40-45%, but that was transient, in setting of [place] - Continue home metoprolol succinate 12.5mg b.i.d. - continue furosemide 40 mg PO daily - Strict I&Os, daily weights HLD: Holding home atorvastatin HTN: Holding home isosorbide mononitrate, HCTZ, lisinopril CODE STATUS: DNR/DNI FEN/GI: low-sodium diet. No mIVF. DVT prophylaxis: 07/19 restarted heparin drip for bridge. 07/20 PM started warfarin 5mg Dispo: Med/surg. tentative dispo to [facility] when approved (2) Amputation above knee: (3) Dehiscence of amputation stump: (4) Peripheral vascular disease: (5) Cardiomyopathy, ischemic: (6) CAD (coronary artery disease): (7) Sepsis with acute hypoxic respiratory failure: (8) Symptomatic anemia: Admission and Anticipated Discharge Date Admission Date: June 11, 2020 Review of Systems Review of Systems: Constitutional: Denies fever, chills, weight change Eyes: Denies blurry vision, vision changes ENT: Denies sore throat, sinus pain Cardiovascular: Denies chest pain, palpitations Respiratory: Denies shortness of breath Gastrointestinal: Denies abdominal pain, nausea, vomiting, constipation, diarrhea Genitourinary: Denies urinary symptoms including dysuria Musculoskeletal: Denies weakness, muscle aches/pain, joint aches/pain Neurological: Denies headache, numbness, tingling, focal weakness Physical Exam Physical Exam: General: Grossly A&O. NAD. Cooperative. HEENT: Atraumatic, normocephalic. EOMI Pulm: CTAB. -wheezes, -rales, -rhonchi. No respiratory distress. Cardiac: RRR, -mrg. Radial pulses intact and symmetrical. Abdominal: Nontender, nondistended, soft. Results & Data Results & Data ([facility]) Vital Signs (Past 12 Hours) Vital Signs Temp Pulse Resp BP Pulse Ox 07/21/20 07:05 37 C 92 H 18 107/68 93 07/20/20 22:21 36.8 C 102 H 16 110/67 95 07/20/20 21:37 104 H 118/66 92 Resident Activity Tracking Resident Involvement: Resident Care Provided Care Provided: Adult Hospital Medicine (1) CAD (coronary artery disease) Coronary Disease-Associated Artery/Lesion type: [place] artery [place] vs. transplanted heart: [place] heart Associated angina: with stable angina Qualified Code(s): I25.118 - Atherosclerotic heart disease of [place] coronary artery with other forms of angina pectoris
[2020-07-21] MEDS: HYDROmorphone INJ 0.5 MG/0.5 ML SYR IV PRN (07:18)
[2020-07-21] MEDS: FLUTICASONE/VILANTEROL 100/25MCG 14 PUFFS/INHALER INH SCH (09:13)
[2020-07-21] MEDS: FLUTICASONE PROPIONATE NA SPR 16 GM BTL NAE SCH (09:13)
[2020-07-21] MEDS: POTASSIUM CHLORIDE 20 MEQ/15 ML UDC PO SCH (09:14)
[2020-07-21] MEDS: UMECLIDINIUM BROMIDE 62.5MCG/BLISTER 7 PUFFS/INHALER INH SCH (09:14)
[2020-07-21] MEDS: FUROSEMIDE 40 MG TAB PO SCH (09:15)
[2020-07-21] MEDS: guaiFENesin 600 MG TABCR PO SCH (09:16)
[2020-07-21] MEDS: LIDOCAINE 5% 1 PATCH TD SCH (09:16)
[2020-07-21] MEDS: GABAPENTIN 300 MG CAP PO SCH ×2 (09:17→13:44)
[2020-07-21] MEDS: METOPROLOL SUCC 25MG EXT REL TAB PO SCH (09:18)
[2020-07-21] MEDS: predniSONE 5 MG TAB PO SCH (09:18)
[2020-07-21 13:42] LABS: Partial Thromboplastin Ratio 1.4
[2020-07-21] MEDS ORDERED: HEPARIN IV BOLUS 2,000 UNITS in SYRINGE 0 ML IV ONE (14:15)
[2020-07-21] MEDS: HEPARIN SODIUM/DEXTROSE 25,000 UNITS/500 ML BAG IV SCH (14:16)
--- NOTE | 2020-07-21 18:24 | Discharge Summary ---
Date of Service July 21, 2020 Admission HPI Per Admitting Provider 75-year-old male with past medical history significant for CAD, HTN, HLD, extensive smoking history and COPD, hemorrhoids admitted for severe sepsis with acute hypoxic respiratory failure, with initial complaint of RLE pain with findings consistent with critical limb ischemia. Patient reports that he has been dealing with a nonhealing RLE wound for the last 2 years, acutely painful, worse with palpation. No recent fevers or chills. On initial presentation was not complaining of shortness of breath, however when I evaluated the patient he appeared to be short of breath with tachypnea and was on nasal cannula. He reports that he has dealt with some shortness of breath with over the last several days but that this is the worst he has felt. No known sick contacts. ER course included COVID-19 negative, elevated lactate and WBCs, CXR and CT suggestive of multifocal pneumonia in RLL. CTA showed findings suggestive of critical limb ischemia and RLE with fairly extensive PAD throughout. On my interview patient is denying chest pain, nausea or vomiting, diarrhea or constipation, dizziness or headache. Does endorse significant shortness of breath, and can be heard gurgling with expiration. Admission Exam Per Admitting Provider Constitutional: well developed, + acute distress (Due to breathing), + ill appearing and + thin Eyes: PERRL, conjunctivae normal, anicteric sclerae ENMT: external ear and nose normal, oropharynx normal Neck: normal visual inspection Respiratory: Decreased breath sounds at right lung base, no wheezes noted. On repeat examination after called by nursing patient did appear to have audible crackles and signs of fluid overload Cardiovascular: Rate/Rhythm: regular rhythm and + tachycardic Gastrointestinal (Abdomen): normal bowel sounds, soft, nontender, no hepatosplenomegaly Musculoskeletal: no cyanosis or clubbing, extremities motor strength 5/5 Skin: no rashes, warm and dry Neurologic: AAOx3, normal speech. PERRLA, EOMI, no nystagmus. Normal visual acuity bilaterally. Bilateral UE, LE, and face without sensory or motor deficits. DTRs normal. II- XII intact bilaterally. No pronator drift. No tremor. No ataxia. Psychiatric: A+Ox3, euthymic affect Principal Diagnosis critical limb ischemia Discharge Exam General: Grossly A&O. NAD. Cooperative. HEENT: Atraumatic, normocephalic. Pulm: CTAB anteriorly. No respiratory distress. Cardiac: RRR, -mrg. Abdominal: Nontender, nondistended, soft. Integumentary: R stump bandage was previously removed. Incision is healing appropriately and nonerythematous and without discharge. Per nurse, wound vac at buttock appears appropriate. Image of buttock wound reviewed in chart. Discharge Data Allergies Allergy/AdvReac Type Severity Reaction Status Date / Time clindamycin Allergy Unknown Unknown Verified 06/11/20 20:20 Penicillins Allergy Unknown Unknown Verified 06/11/20 20:20 Consultations 06/12/20 02:25 Consult Vascular Surgery Routine 06/12/20 09:36 Consult Anesthesiology Routine 06/12/20 09:38 Consult Cardiology Routine 06/12/20 14:07 Consult Pulmonology Routine 06/12/20 14:19 Consult Palliative Care Routine 06/28/20 09:12 Consult Pulmonology Routine 06/30/20 15:50 Consult Vascular Surgery Routine 07/11/20 12:57 Consult General Surgery Routine 07/12/20 10:03 Consult Anesthesiology Routine 07/12/20 10:38 Consult Anesthesiology Routine Procedures Performed Operation Date: 06/16/20 14:00 Actual Procedures p Right Above Knee Amputation(Right) - Arnulfo Her MD Operation Date: 07/17/20 07:00 Actual Procedures p Sacral Decubitus Ulcer Debridement(Not Applicable) - Jack Mayers DO, FACS s Debridement of Stump with Revision(Right) - Arnulfo Her MD Ordered Studies 06/11/20 19:38 CT ang AA runof w inc wo ifdon Stat 06/26/20 16:05 CT angio chest PE protocol Urgent 06/26/20 18:05 US venous doppler UE LT Stat Hospital Course (1) Buttock wound: 07/23/20 Update: Patient was dispositioned to [facility] inpatient rehab on 07/21/20, but was readmitted for respiratory distress on 07/23/20. As of 07/23/20, he is in the ICU undergoing care for septic shock, acute hypoxic respiratory failure, and mechanical ventilation (at patient decision despite prior DNR/DNI s tatus). Sukhjinder is a 75-year-old male with a notable past medical history of CAD, HTN, HLD, COPD with extensive smoking history, and hemorrhoids who admitted to [facility] from 06/11/20-07/21/20 with a chief complaint of a nonhealing right lower extremity wound that had become progressively more painful over the proceeding days/weeks. In the ED, Sukhjinder was found to have acute hypoxemic respiratory failure with imaging findings concerning of a multifocal pneumonia in the right lower lobe, serum studies concerning for potential systemic involvement (hypotension, elevated lactate, significant leukocytosis), and findings on CTA concerning for critical limb ischemia from peripheral arterial disease. As such, he was admitted for management of critical right lower extremity ischemia, acute hypoxemic respiratory failure, as well as suspected sepsis secondary to a potential aspiration pneumonia. 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 Just prior to beginning the surgery, Sukhjinder did undergo cardiac arrest which required CPR and intensive medical management. The surgery was completed thereafter and he was transferred to the ICU for recovery. He was successfully extubated the next day. He remained on continuous cardiac monitoring. Buttock wound - s/p debridement. wound vac right above knew amputation -local wound care, nutrition support -eventually plan would be to move towards prosthesis if/when feasible (amputation and stump wound revision done by dr her, [facility]) leukocytosis - uptrended 9.75->16.7->19.46 (07/19), but improving on 07/20, 14.38. May be secondary to debridement procedure. Clinically well and afebrile. Pulmonary edema vs infection also on differential; monitored clinically and w/ improvement on lung exam and decrease in leukocytosis, did not order cxr on day of discharge. symptomatic anemia, resolved - Hb 6.9 16 AM - transfused 1 unit pRBC, w/ symptom improvement CAD - Hx of TX approximately 4 years ago (attempted PCI, vessel ruptured, PCI aborted). - Went into cardiac arrest in OR prior to R AKA this current admission - TTE 06/28 LV sys fxn normal (55-60%), RV systolic pressure is elevated at 40- 50mmHg - TTE in 2016 showed reduced EF 40-45%, but that was transient, in setting of TX - Continued home metoprolol succinate 12.5mg b.i.d. - continued furosemide 40 mg PO daily pain control -pt prefers non-narcotic regimen when possible, and generally has done well w predominantly PO pain meds -gabapentin currently 300mg qid -- just increased to this on 07/20 -otherwise pain regimen during the admission is acetaminophen 1000mg po TID, ibuprofen (replacing IV toradol) 800mg TID (alternate timing w tylenol if possible please) and oxycodone 5mg po q4hr prn breakthrough Acute Hypoxemic Respiratory Failure - Multifactorial including pneumonia, COPD with significant tobacco use ( > 55 pack-year history), bilateral PE, pulmonary edema/effusions, previous PNA (resolved) - Significantly improved O2 requirement and work of breathing from prior COPD -presumed COPD -still requiring O2 / although the liter-flow has been able to be slowly weaned over the last few weeks to ~1-2L at discahrge -inhaler regimen, now down to what had been his [id number] prednisone 5mg bid PE - heparin drip. - bridge anticoagulation with lovenoxupon discharge. restarted warfarin 5 mg daily on 07/20 CHF -while echo relatively normal, save pulmonary BP findings c/w COPD, he did have hypoxia that was fairly refractory until clinically responding to diuresis - due to this, we have been working with presumptive dx of HFpEF and continued diuresis, but would follow fluid status and occasional BMP - as he might progress to where he can be reduced or weaned from current diuretic dosing deconditioning/malnutrition -nutritional support, PT/OT HLD - held home atorva during admission HTN - held home isosorbide mononitrate, HCTZ, lisinopril during admission CODE STATUS: DNR/DNI (2) Amputation above knee: (3) Dehiscence of amputation stump: (4) Peripheral vascular disease: (5) Cardiomyopathy, ischemic: (6) CAD (coronary artery disease): (7) Sepsis with acute hypoxic respiratory failure: (8) Symptomatic anemia: Total Time Total Time Spent Total Time Spent (In Minutes): Greater than 30 Discharge Plan Discharge Items Patient Disposition: Transfer Inpatient Rehab Fac Reason For Visit: APRIL PERRY PAIN Discharge Diagnosis: right lower extremity amputation. large buttock wound Activity: Per Instructions section Non-emergency contact: Primary Care Provider Call non-emergency contact if: you have any medication questions, your wound has increased redness and your wound has increased drainage Follow-up/Referrals: Tatianna ALVA [Primary Care Provider] - Arnulfo Her MD [Physician] - (Will need to be seen in 2 weeks for staple removal Please call to schedule [phone]) Diet: Heart Healthy Addtl Attending Provider Instructions: f/u w/ pcp in 1 week remove lidoderm patch daily HOSPITAL COURSE: Sukhjinder is a 75-year-old male with a notable past medical history of CAD, HTN, HLD, COPD with extensive smoking history, and hemorrhoids who presented to [facility] with a chief complaint of a nonhealing right lower extremity wound that had become progressively more painful over the proceeding days/weeks. In the ED, Sukhjinder was found to have acute hypoxemic respiratory failure with imaging findings concerning of a multifocal pneumonia in the right lower lobe, serum studies concerning for potential systemic involvement (hypotension, elevated lactate, significant leukocytosis), and findings on CTA concerning for critical limb ischemia from peripheral arterial disease. As such, he was admitted for management of critical right lower extremity ischemia, acute hypoxemic respiratory failure, as well as suspected sepsis secondary to a potential aspiration pneumonia. In the ED, Sukhjinder required supplemental oxygen to aid his dyspnea. His initial labs demonstrated a negative COVID-19 test lactate elevated to 4.4, and leukocytosis to 18.4. He was subsequently started on vancomycin, cefepime, and Flagyl to cover for aspiration pneumonia pathogens. Antihypertensive medications were held due to initial hypotension to 80/50. He received normal saline, which resulted in acute worsening of his shortness of breath; given suspicion for acute volume overload, diuresis was initiated with Lasix, which resulted in improvement of his symptoms. Thereafter, he was deemed stable to move up to the floors for admission. The following day, Sukhjinder received a TTE. This demonstrated right ventricular dilation alongside diminishment of RV and LV function, an LVEF of 40 to 45%, and mild mitral/tricuspid regurgitation. These findings were consistent with a likely chronic heart failure with reduced ejection fraction diagnosis and potentially a component of cor pulmonale from his COPD. He was kept on his coronary artery disease / COPD medications while here, and did not require further diuresis during his stay. On June 12, patient did develop spontaneous atrial fibrillation with rapid ventricular response that resolved after intravenous metoprolol. Thereafter, remains in normal sinus rhythm. Cardiology was consulted, who recommended continuing his home metoprolol, but holding addition of anticoagulation given the clear causes for precipitation of the single episode of atrial fibrillation. His [id number] is 3, and should atrial fibrillation occur again, he should be placed on chronic anticoagulation. 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 Just prior to beginning the surgery, Sukhjinder did undergo cardiac arrest which required CPR and intensive medical management. The surgery was completed thereafter and he was transferred to the ICU for recovery. He was successfully extubated the next day. He remained on continuous cardiac monitoring. Sukhjinder remained on cefepime but his improvement had plateaued and, as such, vancomycin was restarted, at which point patient began improving considerably. Flutter valve, incentive spirometry, and IV steroids were utilized to further aid his respiratory recovery. By the time of discharge, he had a 6L requirement for supplemental oxygen. Buttock wound -local wound care, offloading, nutrition support -no clear need for antibiotics at this time, but certainly given extent of wound, high risk for bacterial overgrowth, fairly high risk to need repeat debridement (most recent debridement done by dr mayers, [facility]) - You should follow up in the wound care clinic as an outpatient. leg wound/amputation -local wound care, nutrition support -eventually plan would be to move towards prosthesis if/when feasible (amputation and stump wound revision done by dr her, [facility]) PE -has been on heparin drip - coumadin started at 5mg daily on 07/20; continue coumadin 5mg daily for now and follow daily INR - anticipate likely a need to titrate down on dosing as INR rises, but obviously this will be contingent on rate of change of INR -bridge anticoagulation with lovenox 50mg/kg SQ q12hrs next dose shoud be PM 07/21 pain control -pt prefers non-narcotic regimen when possible, and generally has done well w predominantly PO pain meds -gabapentin currently 300mg qid -- just increased to this on 07/20 -otherwise pain regimen to be acetaminophen 1000mg po TID, ibuprofen (replacing IV toradol) 800mg TID (alternate timing w tylenol if possible please) and oxycodone 5mg po q4hr prn breakthrough COPD -presumed COPD -still requiring O2 / although the liter-flow has been able to be slowly weaned over the last few weeks -inhaler regimen, now down to what had been his [id number] prednisone 5mg bid CHF -while echo relatively normal, save pulmonary BP findings c/w COPD, he did have hypoxia that was fairly refractory until clinically responding to diuresis - due to this, we have been working with presumptive dx of HFpEF and continued diuresis, but would follow fluid status and occasional BMP - as he might progress to where he can be reduced or weaned from current diuretic dosing deconditioning/malnutrition -nutritional support, PT/OT Addtl B2B Account Executive Provider Instructions: Sacral/right buttock wound care: apply ostomy ring to entire wound periphery, cover wound bed w/ contact layer of adaptic touch, then apply black foam, cover w/ drape, bridge to right hip, apply trac pad, pressure at -125 mm Hg. Change M-W-F and PRN. If vac malfunctions or comes off, irrigate w/ NSS, apply aquacel ag lightly dampened w/ NSS to the wound bed, cover w/ optifoam, change daily and PRN. PT MUST BE OFFLOADED FROM PRESSURE TO THESE AREAS AT ALL TIMES. stump- per surgeon. Please follow up w the wound clinic FriJuly 28 at 0930am center for wound care [phone]. f/u w/ surgery outpatient as well. Pending Studies at Discharge: No Stand-Alone Forms: My [facility] Skilled Items Patient informed of condition?: Yes DNR: Yes Discharge Level of Care: Acute rehab Communicable Disease: No Discharge Prognosis: Stable Lines: None Urinary Catheter: Yes Medications and DC Order Prescriptions: New warfarin 5 mg tablet 5 mg PO DAILY Qty: 7 RF: 0 furosemide 40 mg Tablet 40 mg PO QAM Qty: 10 RF: 0 acetaminophen 500 mg Tablet 1,000 mg PO Q8 Qty: 10 RF: 0 lidocaine 5 % Adhesive Patch,Medicated 1 patch transdermal QAM Qty: 1 RF: 0 gabapentin 300 mg Capsule 300 mg PO QID Qty: 16 RF: 0 metoprolol succinate 25 mg Tablet Extended Release 24 Hr 12.5 mg PO BID Qty: 60 RF: 0 fluticasone propionate 50 mcg/actuation [place],Suspension 2 spray BESSY BID Qty: 1 RF: 0 Breo Ellipta 100-25 mcg/dose Blister With Device 1 puff inhalation DAILY Qty: 1 RF: 0 guaifenesin [Mucinex] 600 mg Tablet Extended Release 12hr 1,200 mg PO Q12 Qty: 10 RF: 0 Incruse Ellipta 62.5 mcg/actuation Blister With Device 1 puff inhalation DAILY Qty: 1 RF: 0 Continued aspirin 81 mg tablet,delayed release (DR/EC) 81 mg PO DAILY RF: 0 atorvastatin 40 mg tablet 40 mg PO HS RF: 0 nitroglycerin 0.4 mg tablet, sublingual 0.4 mg SL DAILY PRN (Reason: Chest Pain) RF: 0 prednisone 5 mg tablet 5 mg PO BIDM RF: 0 ranolazine [Ranexa] 500 mg tablet extended release 12 hr 500 mg PO BID RF: 0 Discontinued hydrochlorothiazide 12.5 mg tablet 12.5 mg PO DAILY RF: 0 Anoro Ellipta 62.5-25 mcg/actuation blister with device 1 puffs INH DAILY RF: 0 Alves[place] 160 mcg/actuation HFA aerosol inhaler 2 puffs INH BID RF: 0 isosorbide mononitrate 30 mg tablet extended release 24 hr 30 mg PO DAILY RF: 0 lisinopril 5 mg tablet 5 mg PO DAILY RF: 0 metoprolol succinate 25 mg tablet extended release 24 hr 12.5 mg PO BID RF: 0 montelukast 10 mg tablet 10 mg PO DAILY RF: 0 diclofenac sodium [Voltaren] 50 mg Tablet,Delayed Release (Dr/Ec) 50 mg PO BID RF: 0 levalbuterol tartrate [Xopenex HFA] 45 mcg/actuation Hfa Aerosol Inhaler 2 inh INHALATION QID PRN (Reason: Shortness Of Breath) RF: 0 No Action sennosides-docusate sodium [Senna Plus] 8.6-50 mg Tablet 1 tab-cap PO QDL RF: 0 magnesium hydroxide 400 mg/5 mL Suspension 30 ml PO UD RF: 0 bisacodyl 10 mg Suppository 10 mg CO DAILY RF: 0 Fleet Enema 19-7 gram/118 mL Enema 118 ml CO DAILY RF: 0 ibuprofen 200 mg Tablet 800 mg PO TID RF: 0 docusate sodium 100 mg Capsule 100 mg PO BID RF: 0 enoxaparin [Lovenox] 60 mg/0.6 mL Syringe 60 mg SUBCUT DAILY RF: 0 multivitamin,tx-minerals Tablet 1 tab PO DAILY RF: 0 cholecalciferol (vitamin D3) 50 mcg (2,000 unit) Tablet 50 mcg PO DAILY RF: 0 potassium chloride 20 mEq Tablet Extended Release 40 meq PO DAILY RF: 0 naloxone 4 mg/actuation [place],Non-Aerosol 4 mg INTRANASAL ONCE RF: 0 polyethylene glycol 3350 [Miralax] 17 gram powder in packet 17 g PO QDL RF: 0 oxycodone 5 mg tablet 5 mg PO Q4H RF: 0 enoxaparin [Lovenox] 40 mg/0.4 mL syringe 50 mg subcut PM RF: 0 Discharge Orders: Discharge Order (Routine); Ordered 07/21/20 Ordered By: Salomón Zendejas/Jaguar Patient Handouts: Pressure Ulcer Reduce Patient Risk Admission Data Admit Date/Time: 06/11/20 23:52 Attending Provider: Salomón Swift Admit Provider: Olena Madden Primary Care Provider: Tatianna ALVA Other Providers: Vik Alvarez ; Eli Ladd ; Arnulfo Her ; Kendy Ashraf ; Julia Solano ; Prachi Basilio ; Mirella Cuellar ; Evelia Cm ; Chikis Queen ; Kahlil Cervantes ; Kwame Krishnan ; Maksim Mata ; Carlo Cunningham ; Ariana Cunningham ; Ori Nieto ; Asya Cruz ; Juliocesar Fermin ; Rivas Pendleton ; Eduardo Kaur ; Jose Jha ; Ashlyn Gasca ; Javon Mcnair ; Zo Ibrahim ; Daniela Mcnair ; Jericho Hollingsworth ; Radha Hare ; Roberto Espinoza ; Brooke Chakraborty ; Leida Manning ; Radha Watts ; Christa Sewell ; Jack Canela ; Kaylah Zaragoza ; Cleo Del Valle ; Bre Calvin ; Paulina Stock ; Steven Stock V ; Alex Gilliam ; Prachi Hook ; Joby Mejia ; Jameson Menjivar ; Karo Alexandre ; Carolina Duckworth ; Steven Rangel ; Sampson Gasca ; Rubin Alicea ; Latasha Herbert ; Bre Mccallum ; Brandin Harper ; Ernesto Jha ; Emily Quintana ; Ahmet Rhodes ; Nazia Ozuna ; Joselo Bingham ; Zachary Chen ; [id number],[facility] ; [facility] ; Salomón Swift ; Primo Gray ; David Cao ; Gino Felipe ; Brandin Huerta ; Sukhjinder Marshall ; Rei Frank Jr ; Dakotah Newberry ; Yane Higgins ; Nazanin Moreno ; Ahmet Quintero ; Ahmet Galvan ; Pawel Bell ; Trent Ku ; Asya Haines ; Deborah Parker ; Joe Laguna ; Carlos Rivas ; René Nair ; Spencer Perez ; Elinor Pete ; Lincoln Payan ; Trent Plummer Other Interventions: Discharge Summary Assessment (RN) Last Done: 07/21/20 15:28 Supervising Physician Co-Signing Physician Notes I personally examined the patient and verified all flynn points of history and exam, discussed case, and agree with decision making with Dr Jaden Simmons doing well enough. He feels okay to go to rehab. Vitals noted, in general he is awake and alert pleasant appears to be mildly uncomfortable but otherwise no distress. HEENT normocephalic atraumatic mucous membranes moist. Breathing unlabored no accessory muscle use good effort. Skin shows no rashes no pallor or icterus. Wound pictures reviewed Sacral ulcer now status post debridement. Ongoing local wound care, leukocytosis improving Critical limb ischemia status post amputation now with stump wound dehiscencestatus post surgical revision. as above w sacral ulcer Uncontrolled painnow doing better, continue current pain regimen leukocytosis - no clear infections at this time - likely demargination - improving, periodic follow-up Acute blood loss anemianot surprising given the extent that his surgical procedures required. improved post 1 unit. PELovenox bridge to Coumadin Stable for transfer to rehab hospital Resident Activity Tracking Resident Involvement: Resident Care Provided Care Provided: Adult Hospital Medicine
--- NOTE | 2020-07-21 19:19 | Billing Data ---
Date of Service July 21, 2020 Coding Level of Care Code D/C Day Management >30 mins
== END 2020-07-21 17:15 | DRG 239 ==
LOC: ED 19:23 → SUATTDRO 23:52 → 2S 06-12 → SUATTDRO 06-12 → 2S 06-12 01:26 → 1E 06-16 11:57 → 2S 06-17 15:07 → 3N 06-19 14:22 → 2E 06-28 09:32 → 3W 07-05 11:02

== ENCOUNTER 2020-07-23 13:25 | Inpatient (IN) ==
[~2020-07-23 13:25] MED LIST: RAPID SEQUENCE INDUCTION BAG ONE
[2020-07-23] MEDS ORDERED: ACETAMINOPHEN 1000 MG/100 ML IV IV STA (13:32)
[2020-07-23] MEDS ORDERED: CEFEPIME 2,000 MG/20 ML VIAL IV STA (13:33)
[2020-07-23] MEDS ORDERED: SODIUM CHLORIDE 0.9% 1000ML 1,000 ML IV ONE ×2 (13:33→14:33)
[2020-07-23] MEDS ORDERED: LORazepam 0.5 MG/1 ML VIAL IV STA (13:33)
[2020-07-23] MEDS ORDERED: ceFAZolin 2,000 MG/15 ML IV PUSH IV ONE (13:36)
[2020-07-23] MEDS ORDERED: LORazepam 2 MG/4 ML VIAL ONE (13:37)
[2020-07-23] MEDS ORDERED: VANCOMYCIN HCL 1,250 MG in SODIUM CHLORIDE 0.9% 250 ML IV STA (13:47)
[2020-07-23] MEDS ORDERED: ROCURONIUM BROMIDE 10 MG/ML 5 ML VIAL IV ONE ×2 (13:54→14:15)
[2020-07-23] MEDS ORDERED: ETOMIDATE 2 MG/ML 20 ML VIAL IV ONE ×2 (13:54→14:15)
[2020-07-23 13:57] LABS: Hematocrit (blood only) 26.1 % (42-52); Hemoglobin 8.1 g/dL (14.0-18.0); Mean Corpuscular Volume 90.3 fL (80-100); Platelet Count 259 K/uL (130-400); RDW Standard Deviation 60.9 fL (36.4-46.3); Red Blood Count 2.89 M/uL (4.7-6.1)
[2020-07-23] MEDS ORDERED: MIDAZOLAM BOLUS FROM BAG IV PRN (14:01)
[2020-07-23] MEDS ORDERED: STAT IV Infusion **Titration per Protocol STA ×3 (14:01→20:54)
[2020-07-23] MEDS ORDERED: MIDAZOLAM HCL 125 MG/250 ML BAG IV SCH (14:15)
[2020-07-23 14:23] LABS: Acanthocytes 1+; Basophils # (auto) 0.02 K/uL (0-0.2); Basophils % (auto) 0.1 %; Eosinophils # (auto) 0.03 K/uL (0-0.5); Eosinophils % (auto) 0.2 %; Immature Granulocytes # (auto) 0.12 K/uL (0.00-0.02); Immature Granulocytes % (auto) 0.7 %; Lymphocytes # (auto) 3.71 K/uL (1.2-3.4); Lymphocytes % (auto) 20.6 %; Monocytes # (auto) 0.55 K/uL (0.11-0.59); Monocytes % (auto) 3.1 %; Neutrophils # (auto) 13.57 K/uL (1.4-6.5); Neutrophils % (auto) 75.3 %; Polychromasia 1+
[2020-07-23 14:27] LABS: INR 4.3 (0.9-1.1); Prothrombin Time 38.5 Seconds (9.0-12.0)
--- NOTE | 2020-07-23 14:29 | XRay Report ---
XR chest 1V portable CLINICAL HISTORY: SEPSIS RESPIRATORY FAILURE. SEPSIS. COMPARISON STUDY: 07/03/2020 FINDINGS: The left subclavian central venous catheter has been removed. There has been interval place ment of endotracheal tube 28 mm above the kenny. There is pulmonary emphysema. There are bilateral l ower lung zone pulmonary airspace opacities. There is blunting of the lateral costophrenic angles. IMPRESSION: 1. Pulmonary emphysema 2. Persistent bilateral lower lung zone pulmonary opacities suspicious for pneumonia or aspiration 3. Endotracheal tube 28 mm above the kenny 4. Interval removal of the left subclavian central venous catheter. ACT 112: Negative or not required by law. Electronically signed by: Nura Chairez M.D. 07/23/2020 2:28 PM
--- NOTE | 2020-07-23 14:29 | XRay Report ---
XR femur RT 2V routine CLINICAL HISTORY: Postoperative examination AMPUTATION COMPARISON: None. DISCUSSION: There are postsurgical changes of a right lower extremity amputation performed 4 cm infer ior to the intertrochanteric line of the proximal femur. There are overlying skin armando. IMPRESSION: Right proximal femoral amputation. ACT 112: Negative or not required by law. Electronically signed by: Nura Chairez M.D. 07/23/2020 2:28 PM
[2020-07-23 14:39] LABS: Partial Thromboplastin Time 51.8 Seconds (21.0-31.0)
[2020-07-23 14:49] LABS: Influenza A virus by PCR Negative (Neg); Influenza B virus by PCR Negative (Neg); RSV by PCR Negative (Neg); SARS CoV2 RNA(COVID-19) InHosp NEGATIVE (Negative)
[2020-07-23 15:29] LABS: Alanine Aminotransferase 26 U/L (12-78); Albumin Level 1.5 gm/dl (3.4-5.0); Aspartate Aminotransferase 26 U/L (15-37); BUN Creatinine Ratio 20.4 (10-20); Blood Urea Nitrogen 26 mg/dl (7-18); Calcium 7.6 mg/dl (8.5-10.1); Carbon Dioxide 19 mmol/L (21-32); Chloride 102 mmol/L (98-107); Est GFR (African American) 65.2; Est GFR (Non-African American) 56.2; Glucose 70 mg/dl (70-99); Magnesium 1.8 mg/dl (1.8-2.4); Potassium 4.4 mmol/L (3.5-5.1); Sodium 134 mmol/L (136-145)
[2020-07-23 15:32] LABS: Albumin Globulin Ratio 0.3 (0.9-2); Alkaline Phosphatase 104 U/L (45-117); Bilirubin,Total 0.6 mg/dl (0.2-1); Globulin 4.6 gm/dl (2.5-4.0); Total Protein 6.1 gm/dl (6.4-8.2); Troponin I 0.016 ng/ml (0-0.045)
[2020-07-23 15:34] LABS: Appearance Urine Cloudy (Clear); Bacteria Urine Automated Negative (Negative); Bilirubin Urine Negative (Negative); Blood Urine 2+ (Negative); Color Urine Yellow; Epithelial Cell Urine Auto >30 /lpf (0-5); Glucose Urine UA Negative (Negative); Ketones Urine Negative (Negative); Leukocyte Esterase Urine 2+ (Negative); Nitrite Urine Negative (Negative); Protein Urine Negative (Negative); Specific Gravity Urine 1.017 (1.000-1.030); Urobilinogen Urine Negative (Negative); WBC Urine Automated >30 /hpf (0-5)
--- NOTE | 2020-07-23 16:09 | Critical Care Consultation ---
Date of Consultation July 23, 2020 Assessment & Plan (1) Sepsis with acute hypoxic respiratory failure: Reason Critically Ill: 75-year-old male with recent right LE AKA, PNA and DVT/PE (on Warfarin) who presented to [facility] ED on 07/23 for respiratory distress - he was fluid resuscitated, intubated and transferred to the ICU for further management of septic shock and acute hypoxic respiratory failure. Neuro - [facility] ICU: cannot assess (sedated) - continue Versed for sedation while intubated - monitor RASS and BIS Cardiac - septic shock - hypotensive to 80s/60s, febrile 38.7C, leukocytosis 18, lactate 5.4, procalcitonin 0.86 - required 2L crystalloid in the ED - pressures initially acceptable (110s-130s/60s-70s) but now hypotensive to 70s/40s in ICU - will start Normosol-R @100cc/hr as well as Levophed gtt - received Vanco/Cefepime x1, will continue with abx as described below - a-fib with RVR during last hospitalization and currently tachycardic - will order EKG - strict I/Os Respiratory - acute hypoxic respiratory failure secondary to septic shock/pneumonia - intubated/sedated - AC/335/20/5/100, ABG 7.14/54/74/18 - mixed respiratory/metabolic acidosis 2/2 respiratory failure/septic shock - CXR showing persistent bilateral lower lung opacities (with concern for aspiration PNA during last admission) - continue Versed for sedation while intubated GI - NPO - will place OG, plan to start tube feeds as tolerated RENAL/LYTES - Acute kidney injury - Cr 1.26 (baseline 0.4-0.5), BUN:Cr ratio 20.4, suspect pre-renal injury 2/2 septic shock - started Normosol as mentioned above - No significant electrolyte derangement - Replace lytes as needed. - UA cloudy, 2+ LE, >30 WBC; Urine cx pending - continue olmedo - strict I/Os as above ENDO - no history of diabetes or thyroid disease - no issues at this time HEME - chronic anemia 7-8 since AKA and subsequent surgeries, was at 10-11 before this - currently at post-operative baseline - Hgb 8.1, no signs of active bleeding - transfuse as needed for Hgb<7 - INR supratherapeutic at 4.3, no signs of active bleeding - hold pharmacologic DVT ppx and hold Warfarin - continue to trend CBC and PT/PTT/INR daily ID - septic shock - hypotensive to 80s/60s, febrile 38.7C, leukocytosis 18, lactate 5.4, procalcitonin 0.86 - dirty UA (cloudy, 2+ LE, >30 WBC) and CXR showing persistent bilateral lower lung opacities (with concern for aspiration PNA during last admission) - urine and blood cultures pending - suspect pulmonary vs urinary source - received Vanco/Cefepime x1 in the ED, will continue with Vanco/Cefepime - Monitor fever curve INTEGUMENTARY - wound care for sacral decubitus ulcer - currently no signs of cellulitis - continue to monitor closely while in ICU LINES/IV ACCESS - PIVs intact DVT PROPHYLAXIS - hold pharmacologic ppx for now as above, trend coags GI ppx: Famotidine 20mg IV BID CODE STATUS: DNR/DNI Thank you for allowing us to be part of this patient's care. Please refer to Dr. Richards's documentation for any further recommendations. (2) Septic shock: (3) Symptomatic anemia: (4) Sacral decubitus ulcer: (5) Amputation above knee: (6) COPD (chronic obstructive pulmonary disease): (7) Peripheral vascular disease: (8) Pneumonia: History of Present Illness Reason for Consultation: sepsis with possible need for pressor support, respiratory failure requiring vent management Requesting Physician: Dr. Salomón Swift History of Present Illness Sukhjinder Lomeli is a 75 yo male inmate ([facility]) with PMHx significant for COPD, HFrEF, and PVD, as well as recent pneumonia, AKA right LE in 06/2020 and associated prolonged 1-month recovery (including cardiac arrest with CPR/ROSC before surgery, DVT/PE requiring treatment, post-operative wound complications requiring several operative procedures), presented to [facility] ED on 07/23 from [facility] for worsening shortness of breath. In the ED, the patient presented as febrile 38.7C, hypotensive to 80s/60s, tachycardic to 130s and hypoxic to 80% on RA (uses CPAP at home). His labs were significant for WBC 18, Lactate 5.4, Procaclcitonin 0.86 (from 0.70 on 07/19), dirty UA, CXR showing persistent bilateral lower lung opacities. Patient also had elevated coags (PT 38.5 and INR 4.3) in the setting of recent DVT/PE and starting Warfarin on 07/20. Patient was given Vanco/Cefepime x1 and 2L crystalloid for presumed septic shock. Was also intubated, per his own request due to worsening respiratory distress, despite being previously DNR/DNI. Was paralyzed/sedated for intubation with Etomidate/Rocuronium/Versed - Versed continued for sedation. Allergies Allergy/AdvReac Type Severity Reaction Status Date / Time clindamycin Allergy Unknown Unknown Verified 06/11/20 20:20 Penicillins Allergy Unknown Unknown Verified 06/11/20 20:20 Home Medications Medication Instructions Recorded Confirmed Type aspirin 81 mg tablet,delayed 81 mg PO DAILY 05/26/19 07/23/20 History release atorvastatin 40 mg tablet 40 mg PO HS 05/26/19 07/23/20 History nitroglycerin 0.4 mg sublingual 0.4 mg SL DAILY PRN 05/26/19 07/23/20 History tablet prednisone 5 mg tablet 5 mg PO BIDM 05/26/19 07/23/20 History ranolazine 500 mg tablet,extended 500 mg PO BID 05/26/19 07/23/20 History release,12 hr acetaminophen 1,000 mg PO Q8 #10 tab 07/21/20 07/23/20 Rx fluticasone furoate-vilanterol 1 puff INHALATION DAILY #1 ea 07/21/20 07/23/20 Rx [Breo Ellipta] fluticasone propionate 2 spray BESSY BID #1 ml 07/21/20 07/23/20 Rx furosemide 40 mg PO QAM #10 tab 07/21/20 07/23/20 Rx gabapentin 300 mg PO QID #16 cap 07/21/20 07/23/20 Rx guaifenesin [Mucinex] 1,200 mg PO Q12 #10 tab 07/21/20 07/23/20 Rx lidocaine 1 patch TRANSDERMAL QAM #1 ea 07/21/20 07/23/20 Rx metoprolol succinate 12.5 mg PO BID #60 tab 07/21/20 07/23/20 Rx umeclidinium [Incruse Ellipta] 1 puff INHALATION DAILY #1 ea 07/21/20 07/23/20 Rx warfarin 5 mg PO DAILY #7 tab 07/21/20 07/23/20 Rx bisacodyl 10 mg TX DAILY 07/23/20 07/23/20 History cholecalciferol (vitamin D3) 50 mcg PO DAILY 07/23/20 07/23/20 History docusate sodium 100 mg PO BID 07/23/20 07/23/20 History enoxaparin [Lovenox] 50 mg SUBCUT PM 07/23/20 07/23/20 History enoxaparin [Lovenox] 60 mg SUBCUT DAILY 07/23/20 07/23/20 History ibuprofen 800 mg PO TID 07/23/20 07/23/20 History magnesium hydroxide 30 ml PO UD 07/23/20 07/23/20 History multivitamin,tx-minerals 1 tab PO DAILY 07/23/20 07/23/20 History naloxone 4 mg INTRANASAL ONCE 07/23/20 07/23/20 History oxycodone 5 mg PO Q4H 07/23/20 07/23/20 History polyethylene glycol 3350 [Miralax] 17 g PO QDL 07/23/20 07/23/20 History potassium chloride 40 meq PO DAILY 07/23/20 07/23/20 History sennosides-docusate sodium [Senna 1 tab-cap PO QDL 07/23/20 07/23/20 History Plus] sodium phosphates [Fleet Enema] 118 ml TX DAILY 07/23/20 07/23/20 History Patient History Medical History AAA (abdominal aortic aneurysm) CAD (coronary artery disease) Cardiomyopathy, ischemic CHF (congestive heart failure) Chronic steroid use COPD (chronic obstructive pulmonary disease) Critical lower limb ischemia Dyslipidemia Emphysema of lung History of [place] (myocardial infarction) Ischemia of right lower extremity Peripheral vascular disease Tobacco abuse Surgical History History of percutaneous coronary intervention Hx of cardiac catheterization Family History Other Family history non-contributory Social History Smoking Status: Unknown if ever smoked Tobacco Type: Cigarettes Age Started Using Tobacco: 18; packs per day: 1; Number of Years Since Quit: 2; Hx Alcohol Use: No Hx Substance Use: No Preferred Language: Persian Communication Ability: Effective Visual Impairment: No Limitations Technician'S Helper Required: No Beliefs That Will Affect Care: None marital status: / Current Living Situation: Other Current Living Situation Comment: [facility] How many Children do You have: 1 Feels Safe at Home: Yes Assistive Devices: Walker Review of Systems Review of Systems: ROS unobtainable due to intubated/sedated Physical Exam Physical Exam: General: Intubated/sedated, no acute distress HEENT: Atraumatic, airway obstructed by endotracheal tube Pulm: Decreased air entry bilaterally, crackles bilaterally in lower lung lua, no respiratory distress on vent, vent settings reviewed Cardiac: tachycardic rate, regular rhythm, -mrg. Radial pulses intact and symmetrical. Abdominal: soft, non-tender, non-distended, BS x 4 Skin: right lower extremity stump with closed surgical incision and sutures intact, no surrounding erythema, no drainage. open sacral decubitus ulcer (~[id number]) without overlying necrotic tissue and without surrounding erythema/tracking/discharge Neuro: pupils reactive to light and accommodation, corneal reflexes intact, p aralyzed (s/p NMBA) Results & Data Results & Data ([facility]) Vital Signs (Past 12 Hours) Vital Signs Temp Pulse Resp BP Pulse Ox 07/23/20 15:50 118 H 115/83 100 07/23/20 15:45 117 H 131/78 100 07/23/20 15:40 119 H 128/92 100 07/23/20 15:35 119 H 131/80 100 07/23/20 15:30 119 H 132/87 100 07/23/20 15:25 118 H 125/87 100 07/23/20 15:20 120 H 132/83 98 07/23/20 15:15 120 H 121/78 100 07/23/20 15:10 110 H 128/78 100 07/23/20 15:06 96 07/23/20 15:05 120 H 119/81 96 07/23/20 15:01 123 H 07/23/20 15:00 124 H 125/78 07/23/20 14:55 127 H 103/83 07/23/20 14:50 124 H 16 07/23/20 14:45 125 H 15 99/69 L 07/23/20 14:40 125 H 18 113/67 07/23/20 14:35 124 H 16 106/75 07/23/20 14:31 120 H 21 07/23/20 14:30 122 H 16 105/71 07/23/20 14:25 119 H 19 97/65 L 07/23/20 14:20 120 H 29 H 108/58 L 07/23/20 14:15 123 H 27 H 107/75 07/23/20 14:10 126 H 16 95/71 L 07/23/20 14:07 121 H 16 07/23/20 14:06 128 H 17 114/62 07/23/20 14:00 131 H 37 H 07/23/20 13:50 133 H 40 H 81 L 07/23/20 13:47 133 H 40 H 86/65 L 84 L 07/23/20 13:40 137 H 38 H 96/66 L 07/23/20 13:36 131 H 36 H 07/23/20 13:34 138 H 33 H 90/69 L 07/23/20 13:29 38 H 07/23/20 13:25 38.7 C H 123 H 37 H Resident Activity Tracking Resident Involvement: Resident Care Provided Care Provided: Adult Hospital Medicine (1) COPD (chronic obstructive pulmonary disease) COPD type: unspecified COPD Qualified Code(s): J44.9 - Chronic obstructive pulmonary disease, unspecified (2) Pneumonia Laterality: right Lung location: lower lobe of lung Pneumonia type: due to unspecified organism Qualified Code(s): J18.9 - Pneumonia, unspecified organism
--- NOTE | 2020-07-23 16:21 | Emergency Department Note ---
History of Present Illness General Chief complaint: Respiratory Distress Time Seen by Provider: 07/23/20 13:28 Source: EMS History of Present Illness Provider complaint: Respiratory distress Onset (ago): day(s) 1 Maximum Pain Intensity: 0 Associated symptoms: + cough, + fever/chills, + shortness of breath and + weakness; no seizure 75-year-old male presents emergency department via EMS for respiratory distress. Patient is from [facility]. EMS states that the patient was having increased difficulty breathing and is barely tolerating his CPAP. Home Medications Medication Instructions Recorded Confirmed Type aspirin 81 mg tablet,delayed 81 mg PO DAILY 05/26/19 07/23/20 History release atorvastatin 40 mg tablet 40 mg PO HS 05/26/19 07/23/20 History nitroglycerin 0.4 mg sublingual 0.4 mg SL DAILY PRN 05/26/19 07/23/20 History tablet prednisone 5 mg tablet 5 mg PO BIDM 05/26/19 07/23/20 History ranolazine 500 mg tablet,extended 500 mg PO BID 05/26/19 07/23/20 History release,12 hr acetaminophen 1,000 mg PO Q8 #10 tab 07/21/20 07/23/20 Rx fluticasone furoate-vilanterol 1 puff INHALATION DAILY #1 ea 07/21/20 07/23/20 Rx [Breo Ellipta] fluticasone propionate 2 spray BESSY BID #1 ml 07/21/20 07/23/20 Rx furosemide 40 mg PO QAM #10 tab 07/21/20 07/23/20 Rx gabapentin 300 mg PO QID #16 cap 07/21/20 07/23/20 Rx guaifenesin [Mucinex] 1,200 mg PO Q12 #10 tab 07/21/20 07/23/20 Rx lidocaine 1 patch TRANSDERMAL QAM #1 ea 07/21/20 07/23/20 Rx metoprolol succinate 12.5 mg PO BID #60 tab 07/21/20 07/23/20 Rx umeclidinium [Incruse Ellipta] 1 puff INHALATION DAILY #1 ea 07/21/20 07/23/20 Rx warfarin 5 mg PO DAILY #7 tab 07/21/20 07/23/20 Rx bisacodyl 10 mg CA DAILY 07/23/20 07/23/20 History cholecalciferol (vitamin D3) 50 mcg PO DAILY 07/23/20 07/23/20 History docusate sodium 100 mg PO BID 07/23/20 07/23/20 History enoxaparin [Lovenox] 50 mg SUBCUT PM 07/23/20 07/23/20 History enoxaparin [Lovenox] 60 mg SUBCUT DAILY 07/23/20 07/23/20 History ibuprofen 800 mg PO TID 07/23/20 07/23/20 History magnesium hydroxide 30 ml PO UD 07/23/20 07/23/20 History multivitamin,tx-minerals 1 tab PO DAILY 07/23/20 07/23/20 History naloxone 4 mg INTRANASAL ONCE 07/23/20 07/23/20 History oxycodone 5 mg PO Q4H 07/23/20 07/23/20 History polyethylene glycol 3350 [Miralax] 17 g PO QDL 07/23/20 07/23/20 History potassium chloride 40 meq PO DAILY 07/23/20 07/23/20 History sennosides-docusate sodium [Senna 1 tab-cap PO QDL 07/23/20 07/23/20 History Plus] sodium phosphates [Fleet Enema] 118 ml CA DAILY 07/23/20 07/23/20 History Allergies Allergy/AdvReac Type Severity Reaction Status Date / Time clindamycin Allergy Unknown Unknown Verified 06/11/20 20:20 Penicillins Allergy Unknown Unknown Verified 06/11/20 20:20 Past Med/Surg History Medical History AAA (abdominal aortic aneurysm) CAD (coronary artery disease) Cardiomyopathy, ischemic CHF (congestive heart failure) Chronic steroid use COPD (chronic obstructive pulmonary disease) Critical lower limb ischemia Dyslipidemia Emphysema of lung History of NH (myocardial infarction) Ischemia of right lower extremity Peripheral vascular disease Tobacco abuse Surgical History History of percutaneous coronary intervention Hx of cardiac catheterization Family History Other Family history non-contributory Social History Smoking Status: Unknown if ever smoked Tobacco Type: Cigarettes Age Started Using Tobacco: 18; packs per day: 1; Number of Years Since Quit: 2; Hx Alcohol Use: No Hx Substance Use: No Preferred Language: Portuguese Communication Ability: Effective Visual Impairment: No Limitations Director Of Solutions 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 Physical Exam Vital Signs Vital Signs - 24 hr 07/23/20 13:25 07/23/20 13:29 07/23/20 13:34 Temperature 38.7 C H Temperature Source Rectal Pulse Rate 123 H 138 H Pulse Rate from SpO2 Sensor Pulse Rhythm Irregular Respiratory Rate 37 H 38 H 33 H Respiratory Effort / Characteristics Short of Breath Short of Breath Blood Pressure 90/69 L Blood Pressure Mean 76 Pulse Oximetry Oxygen Delivery Method CPAP Fraction of Inspired Oxygen SaO2/FiO2 Ratio Sepsis Recent Fever Within 48 Hours Yes Sepsis New/Unexplained Change in Mental Status Yes Sepsis Action Taken by Nursing Physician Notified End-Tidal CO2 07/23/20 13:36 07/23/20 13:40 07/23/20 13:47 Temperature Temperature Source Pulse Rate 131 H 137 H 133 H Pulse Rate from SpO2 Sensor Pulse Rhythm Respiratory Rate 36 H 38 H 40 H Respiratory Effort / Characteristics Blood Pressure 96/66 L 86/65 L Blood Pressure Mean 76 72 Pulse Oximetry 84 L Oxygen Delivery Method Fraction of Inspired Oxygen SaO2/FiO2 Ratio Sepsis Recent Fever Within 48 Hours Sepsis New/Unexplained Change in Mental Status Sepsis Action Taken by Nursing End-Tidal CO2 07/23/20 13:50 07/23/20 14:00 07/23/20 14:06 Temperature Temperature Source Pulse Rate 133 H 131 H 128 H Pulse Rate from SpO2 Sensor Pulse Rhythm Respiratory Rate 40 H 37 H 17 Respiratory Effort / Characteristics Blood Pressure 114/62 Blood Pressure Mean 79 Pulse Oximetry 81 L Oxygen Delivery Method Fraction of Inspired Oxygen SaO2/FiO2 Ratio Sepsis Recent Fever Within 48 Hours Sepsis New/Unexplained Change in Mental Status Sepsis Action Taken by Nursing End-Tidal CO2 07/23/20 14:07 07/23/20 14:10 07/23/20 14:15 Temperature Temperature Source Pulse Rate 121 H 126 H 123 H Pulse Rate from SpO2 Sensor Pulse Rhythm Respiratory Rate 16 16 27 H Respiratory Effort / Characteristics Blood Pressure 95/71 L 107/75 Blood Pressure Mean 79 85 Pulse Oximetry Oxygen Delivery Method Fraction of Inspired Oxygen 100 SaO2/FiO2 Ratio Sepsis Recent Fever Within 48 Hours Sepsis New/Unexplained Change in Mental Status Sepsis Action Taken by Nursing End-Tidal CO2 29 07/23/20 14:20 07/23/20 14:25 07/23/20 14:30 Temperature Temperature Source Pulse Rate 120 H 119 H 122 H Pulse Rate from SpO2 Sensor Pulse Rhythm Respiratory Rate 29 H 19 16 Respiratory Effort / Characteristics Blood Pressure 108/58 L 97/65 L 105/71 Blood Pressure Mean 74 75 82 Pulse Oximetry Oxygen Delivery Method Fraction of Inspired Oxygen 75 SaO2/FiO2 Ratio Sepsis Recent Fever Within 48 Hours Sepsis New/Unexplained Change in Mental Status Sepsis Action Taken by Nursing End-Tidal CO2 34 07/23/20 14:31 07/23/20 14:35 07/23/20 14:40 Temperature Temperature Source Pulse Rate 120 H 124 H 125 H Pulse Rate from SpO2 Sensor Pulse Rhythm Respiratory Rate 21 16 18 Respiratory Effort / Characteristics Blood Pressure 106/75 113/67 Blood Pressure Mean 85 82 Pulse Oximetry Oxygen Delivery Method Fraction of Inspired Oxygen SaO2/FiO2 Ratio Sepsis Recent Fever Within 48 Hours Sepsis New/Unexplained Change in Mental Status Sepsis Action Taken by Nursing End-Tidal CO2 17 07/23/20 14:45 07/23/20 14:50 07/23/20 14:55 Temperature Temperature Source Pulse Rate 125 H 124 H 127 H Pulse Rate from SpO2 Sensor Pulse Rhythm Respiratory Rate 15 16 Respiratory Effort / Characteristics Blood Pressure 99/69 L 103/83 Blood Pressure Mean 79 89 Pulse Oximetry Oxygen Delivery Method Fraction of Inspired Oxygen SaO2/FiO2 Ratio Sepsis Recent Fever Within 48 Hours Sepsis New/Unexplained Change in Mental Status Sepsis Action Taken by Nursing End-Tidal CO2 28 07/23/20 15:00 07/23/20 15:01 07/23/20 15:05 Temperature Temperature Source Pulse Rate 124 H 123 H 120 H Pulse Rate from SpO2 Sensor 120 H Pulse Rhythm Respiratory Rate Respiratory Effort / Characteristics Blood Pressure 125/78 119/81 Blood Pressure Mean 93 93 Pulse Oximetry 96 Oxygen Delivery Method Mechanical Vent Fraction of Inspired Oxygen 75 SaO2/FiO2 Ratio Sepsis Recent Fever Within 48 Hours Sepsis New/Unexplained Change in Mental Status Sepsis Action Taken by Nursing End-Tidal CO2 33 33 35 07/23/20 15:06 07/23/20 15:10 07/23/20 15:15 Temperature Temperature Source Pulse Rate 110 H 120 H Pulse Rate from SpO2 Sensor 121 H 120 H Pulse Rhythm Respiratory Rate Respiratory Effort / Characteristics Blood Pressure 128/78 121/78 Blood Pressure Mean 94 92 Pulse Oximetry 96 100 100 Oxygen Delivery Method Mechanical Vent Mechanical Vent Mechanical Vent Fraction of Inspired Oxygen 75 75 75 SaO2/FiO2 Ratio 128 Sepsis Recent Fever Within 48 Hours Sepsis New/Unexplained Change in Mental Status Sepsis Action Taken by Nursing End-Tidal CO2 36 35 07/23/20 15:20 07/23/20 15:25 07/23/20 15:30 Temperature Temperature Source Pulse Rate 120 H 118 H 119 H Pulse Rate from SpO2 Sensor 119 H 113 H 119 H Pulse Rhythm Respiratory Rate Respiratory Effort / Characteristics Blood Pressure 132/83 125/87 132/87 Blood Pressure Mean 99 99 102 Pulse Oximetry 98 100 100 Oxygen Delivery Method Mechanical Vent Mechanical Vent Mechanical Vent Fraction of Inspired Oxygen 75 75 75 SaO2/FiO2 Ratio Sepsis Recent Fever Within 48 Hours Sepsis New/Unexplained Change in Mental Status Sepsis Action Taken by Nursing End-Tidal CO2 36 36 37 07/23/20 15:35 07/23/20 15:40 07/23/20 15:45 Temperature Temperature Source Pulse Rate 119 H 119 H 117 H Pulse Rate from SpO2 Sensor 118 H 119 H 118 H Pulse Rhythm Respiratory Rate Respiratory Effort / Characteristics Blood Pressure 131/80 128/92 131/78 Blood Pressure Mean 97 104 95 Pulse Oximetry 100 100 100 Oxygen Delivery Method Mechanical Vent Mechanical Vent Mechanical Vent Fraction of Inspired Oxygen 75 75 75 SaO2/FiO2 Ratio Sepsis Recent Fever Within 48 Hours Sepsis New/Unexplained Change in Mental Status Sepsis Action Taken by Nursing End-Tidal CO2 37 37 37 07/23/20 15:50 07/23/20 15:55 07/23/20 15:57 Temperature Temperature Source Pulse Rate 118 H 122 H Pulse Rate from SpO2 Sensor 116 H 119 H Pulse Rhythm Respiratory Rate Respiratory Effort / Characteristics Blood Pressure 115/83 117/83 Blood Pressure Mean 93 94 Pulse Oximetry 100 100 Oxygen Delivery Method Mechanical Vent Mechanical Vent Mechanical Vent Fraction of Inspired Oxygen 75 75 75 SaO2/FiO2 Ratio Sepsis Recent Fever Within 48 Hours Sepsis New/Unexplained Change in Mental Status Sepsis Action Taken by Nursing End-Tidal CO2 37 34 07/23/20 16:00 07/23/20 16:05 Temperature Temperature Source Pulse Rate 120 H 112 H Pulse Rate from SpO2 Sensor 121 H 122 H Pulse Rhythm Respiratory Rate Respiratory Effort / Characteristics Blood Pressure 114/65 118/76 Blood Pressure Mean 81 90 Pulse Oximetry 100 100 Oxygen Delivery Method Mechanical Vent Mechanical Vent Fraction of Inspired Oxygen 75 75 SaO2/FiO2 Ratio Sepsis Recent Fever Within 48 Hours Sepsis New/Unexplained Change in Mental Status Sepsis Action Taken by Nursing End-Tidal CO2 33 33 Physical Exam GENERAL: Patient on CPAP in severe respiratory distress. Patient only able to speak in one-word to 2 word sentences. Ill-appearing. Patient trying to rip the CPAP machine off of his face. HENT: Exam performed. - Head: Normocephalic and atraumatic. - Right Ear: External ear normal. No mastoid tenderness. - Left Ear: External ear normal. No mastoid tenderness. - Mouth/Throat: Dry mucous membranes. EYES: Conjunctivae and EOM are normal. Pupils are equal, round, and reactive to light. Right eye exhibits no discharge. Left eye exhibits no discharge. No scleral icterus. CV: Tachycardic rate, irregular rhythm, normal heart sounds and intact distal pulses. There is no peripheral edema. Palpable radial pulses bue. PULM/CHEST: Expiratory rales bilaterally. - Chest Wall: He exhibits no tenderness. ABD: The abdomen is soft. 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 No purulent discharge or bleeding from the AKA stump. NEURO: He is alert and oriented to person, place, and time. SKIN: Pale. Procedures Intubation Time out performed: Yes sedative: Etomidate Mg Given: 17 paralytic: Rocuronium Mg Given: 55 Laryngoscope: other (glidescope) ET Tube Size: 7.5 ET Tube Uncuffed: Yes Tube Secured Depth (cm): 26 Tube Secured Location: lips Tube Placement Confirmation: visualized tube passing through cords, equal breath sounds bilaterally, no breath sounds over epigastrium and confirmation by capnometry Patient Tolerated Procedure: well Intubation Complications: none Course Course 1328: The patient was evaluated in room A1. A complete history and physical exam was performed Cardiac monitoring: An order was placed for continuous cardiac monitoring. The monitor shows a rate of 140-160 with atrial fibrillation rhythm Patient hypotensive. Large-bore IV access obtained and fluid resuscitation was began. Patient's rectal temperature greater than 38 C. Thought that the patient is septic. Tylenol 1 g IV ordered for the patient. Broad-spectrum antibiotics cefepime and vancomycin will be ordered for the patient. Patient is not tolerating BiPAP or CPAP well due to the mask. We will try to improve the patient's oxygenation with high flow nasal cannula to see if he can better tolerate this. EMR reviewed. Patient was a full code as of June 11, 2020 and then became a DNR/DNI in June 2020. Patient was discharged from the hospital on July 21, 2020, 2 days ago. Patient was admitted from June 11, 2020 until July 21, 2020 at this facility. During that time the patient had a right AKA. Patient was found to be in hypoxic respiratory failure was concerning for a multifocal pneumonia. Patient did have a cardiac arrest on June 16, 2020. He has a history of having sacral wound ulcers. Patient was also being treated for pulmonary embolus on a heparin drip and the patient was discharged with Lovenox. Patient has a history of COPD. 1415: Patient remains tachycardic in A. fib RVR as well as hypotensive. He also remains very tachypneic. Patient's oxygen saturation is very difficult to capture. Patient was becoming increasingly diaphoretic and his respiratory status was becoming worse on high flow oxygen. Patient was becoming extremely tachypneic and is afraid he was going to fatigue out. I did asked the patient again if he would like to remain a DO NOT RESUSCITATE DO NOT INTUBATE or if he would like me to intubate him and place him on a ventilator to try and save his life. I did explain to the patient that I do think that if the patient did not allow me to intubate him he would most likely in the emergency department to day. Patient did voice understanding and stated that he would like to be intubated to try to save his life and he would also like chest compressions if necessary. Patient was intubated. See procedure note. Given the patient's hypotension, will start a benzodiazepine drip for sedation and will avoid propofol at this time. 1520: Patient's vital signs are improved on the ventilator. We are now able to obtain a oxygen saturation and with the IV fluids running the patient's blood pressure has improved as well as his heart rate. Charge nurse MRI did inform me that the patient's chemistries and lactic acid need to be redrawn due to lab error and dilution error. We will continue the IV fluids until that time. Discussed the case with [facility] hospitalist Dr. Segura will admit the patie nt under his service. Labs show a leukocytosis of 18. Hemoglobin 8.1. Stable from 2 days ago. INR is 4.3, therapeutic. Lactic acid on redraw is 5.4. This is after approximately 2 L of IV fluids. Procalcitonin is elevated 0.86. Urinalysis does not show any bacteria. Covid negative. Patient will be admitted to the ICU. Administered Medications Midazolam HCl (Versed) 125 mg in 250 mls @ 2 mls/hr IV .Q96H [facility]; Protocol Stop: 08/22/20 14:14 Last Admin: 07/23/20 14:18 Dose: 1 mg/hr, 2 mls/hr Documented by: [id number] Cosigned by: [id number] Discontinued Medications Acetaminophen (Acetaminophen 1000 Mg/100 Ml Iv) 1,000 mg IV NOW STA Stop: 07/23/20 13:33 Last Admin: 07/23/20 14:56 Dose: 1,000 mg Documented by: [id number] Etomidate (Etomidate 2 Mg/Ml 20 Ml Vial) 17 mg IV NOW ONE Stop: 07/23/20 14:16 Last Admin: 07/23/20 14:05 Dose: 17 mg Documented by: [id number] Cefepime HCl (Maxipime) 2,000 mg in 20 mls @ 5 mls/min IV NOW STA; Protocol Stop: 07/23/20 13:36 Last Admin: 07/23/20 13:48 Dose: 5 mls/min Documented by: [id number] Sodium Chloride (Nss 1000ml) 1,000 mls @ 999 mls/hr IV .Q1H1M ONE Stop: 07/23/20 14:33 Last Infusion: 07/23/20 15:58 Dose: 0 mls/hr Documented by: [id number] Admin: 07/23/20 14:56 Dose: 999 mls/hr Documented by: [id number] Lorazepam (Ativan) 0.5 mg in 1 mls @ 1 mls/min IV NOW STA Stop: 07/23/20 13:34 Last Admin: 07/23/20 13:42 Dose: 1 mls/min Documented by: [id number] Vancomycin HCl 1,250 mg/ (Sodium Chloride) 275 mls @ 200 mls/hr IV NOW STA Stop: 07/23/20 15:09 Last Infusion: 07/23/20 15:29 Dose: 0 mls/hr Documented by: [id number] Admin: 07/23/20 14:00 Dose: 200 mls/hr Documented by: [id number] Sodium Chloride (Nss 1000ml) 1,000 mls @ 999 mls/hr IV .Q1H1M ONE Stop: 07/23/20 15:33 Last Infusion: 07/23/20 15:09 Dose: 0 mls/hr Documented by: [id number] Admin: 07/23/20 13:40 Dose: 999 mls/hr Documented by: [id number] Lorazepam (Lorazepam 2 Mg/4 Ml Vial) Confirm Administered Dose 2 mg .ROUTE .STK- MED ONE Stop: 07/23/20 13:38 Last Admin: 07/23/20 14:26 Dose: Not Given Documented by: [id number] Rocuronium Canadensis (Rocuronium Canadensis 10 Mg/Ml 5 Ml Vial) 55 mg IV NOW ONE Stop: 07/23/20 14:16 Last Admin: 07/23/20 14:05 Dose: 55 mg Documented by: [id number] Cosigned by: [id number] Critical Care Time Critical Care Time: Yes Total Critical Care Time: 85 I have personally spent greater than 85 minutes of critical care time in the direct management of this patient. This includes bedside care, interpretation of diagnostic studies, and testing, discussion with consultants, patient, and family members, and other required patient management activities. This 85 minutes is in excess of all separately billable procedures. Medical Decision Making Laboratory Data Result diagrams: 07/23/20 13:47 07/23/20 14:56 Lab Results 07/23/20 07/23/20 07/23/20 Range/Units 13:40 13:40 13:47 WBC (4.8-10.8) K/uL RBC (4.7-6.1) M/uL Hgb (14.0-18.0) g/dL Hct (42-52) % MCV (80-100) fL MCH (25-34) pg MCHC (32-36) g/dL RDW Std Deviation (36.4-46.3) fL RDW Coeff of Sarah (11.5-14.5) % Plt Count (130-400) K/uL MPV (7.4-10.4) fL Immature Gran % (Auto) % Neut % (Auto) % Lymph % (Auto) % Waller % (Auto) % Eos % (Auto) % Baso % (Auto) % Neut # (Auto) (1.4-6.5) K/uL Lymph # (Auto) (1.2-3.4) K/uL Waller # (Auto) (0.11-0.59) K/uL Eos # (Auto) (0-0.5) K/uL Baso # (Auto) (0-0.2) K/uL Immature Gran # (Auto) (0.00-0.02) K/uL Polychromasia Acanthocytes (Spur) PT (9.0-12.0) Seconds INR (0.9-1.1) APTT (21.0-31.0) Seconds PTT Ratio Sodium Cancelled Potassium Cancelled Chloride Cancelled Carbon Dioxide Cancelled Anion Gap Cancelled BUN Cancelled Creatinine Cancelled Est Cr Clr Drug Dosing Cancelled Est GFR ( Amer) Cancelled Est GFR (Non-Af Amer) Cancelled BUN/Creatinine Ratio Cancelled Glucose Cancelled Lactate Calcium Cancelled Magnesium Cancelled Total Bilirubin Cancelled AST Cancelled ALT Cancelled Alkaline Phosphatase Cancelled Troponin I Cancelled Total Protein Cancelled Albumin Cancelled Globulin Cancelled Albumin/Globulin Ratio Cancelled Procalcitonin (0-0.5) ng/ml Urine Color Urine Appearance (Clear) Urine pH (4.5-7.5) Ur Specific [place] (1.000-1.030) Urine Protein (Negative) Urine Glucose (UA) (Negative) Urine Ketones (Negative) Urine Blood (Negative) Urine Nitrite (Negative) Urine Bilirubin (Negative) Urine Urobilinogen (Negative) Ur Leukocyte Esterase (Negative) Urine WBC (Auto) (0-5) /hpf Urine RBC (Auto) (0-4) /hpf U Hyaline Cast (Auto) (0-5) /lpf U Epithel Cells (Auto) (0-5) /lpf Urine Bacteria (Auto) (Negative) Ur Renal Epithelial Cell Urine Yeast (None Prsent) COVID-19 Eval Order CovFluRsv at [facility] SARS-CoV-2 (PCR) NEGATIVE (Negative) Influenza Type A (PCR) Negative (Neg) Influenza Type B (PCR) Negative (Neg) RSV (RT-PCR) Negative (Neg) 07/23/20 07/23/20 07/23/20 Range/Units 13:47 13:47 13:47 WBC 18.00 H (4.8-10.8) K/uL RBC 2.89 L (4.7-6.1) M/uL Hgb 8.1 L (14.0-18.0) g/dL Hct 26.1 L (42-52) % MCV 90.3 (80-100) fL MCH 28.0 (25-34) pg MCHC 31.0 L (32-36) g/dL RDW Std Deviation 60.9 H (36.4-46.3) fL RDW Coeff of Sarah 19.0 H (11.5-14.5) % Plt Count 259 (130-400) K/uL MPV 11.0 H (7.4-10.4) fL Immature Gran % (Auto) 0.7 % Neut % (Auto) 75.3 % Lymph % (Auto) 20.6 % Waller % (Auto) 3.1 % Eos % (Auto) 0.2 % Baso % (Auto) 0.1 % Neut # (Auto) 13.57 H (1.4-6.5) K/uL Lymph # (Auto) 3.71 H (1.2-3.4) K/uL Waller # (Auto) 0.55 (0.11-0.59) K/uL Eos # (Auto) 0.03 (0-0.5) K/uL Baso # (Auto) 0.02 (0-0.2) K/uL Immature Gran # (Auto) 0.12 H (0.00-0.02) K/uL Polychromasia 1+ Acanthocytes (Spur) 1+ PT 38.5 H (9.0-12.0) Seconds INR 4.3 H (0.9-1.1) APTT 51.8 H* (21.0-31.0) Seconds PTT Ratio 2.0 Sodium Potassium Chloride Carbon Dioxide Anion Gap BUN Creatinine Est Cr Clr Drug Dosing Est GFR ( Amer) Est GFR (Non-Af Amer) BUN/Creatinine Ratio Glucose Lactate Calcium Magnesium Total Bilirubin AST ALT Alkaline Phosphatase Troponin I Total Protein Albumin Globulin Albumin/Globulin Ratio Procalcitonin 0.86 H (0-0.5) ng/ml Urine Color Urine Appearance (Clear) Urine pH (4.5-7.5) Ur Specific [place] (1.000-1.030) Urine Protein (Negative) Urine Glucose (UA) (Negative) Urine Ketones (Negative) Urine Blood (Negative) Urine Nitrite (Negative) Urine Bilirubin (Negative) Urine Urobilinogen (Negative) Ur Leukocyte Esterase (Negative) Urine WBC (Auto) (0-5) /hpf Urine RBC (Auto) (0-4) /hpf U Hyaline Cast (Auto) (0-5) /lpf U Epithel Cells (Auto) (0-5) /lpf Urine Bacteria (Auto) (Negative) Ur Renal Epithelial Cell Urine Yeast (None Prsent) COVID-19 Eval Order SARS-CoV-2 (PCR) (Negative) Influenza Type A (PCR) (Neg) Influenza Type B (PCR) (Neg) RSV (RT-PCR) (Neg) 07/23/20 07/23/20 07/23/20 Range/Units 13:47 14:56 14:56 WBC (4.8-10.8) K/uL RBC (4.7-6.1) M/uL Hgb (14.0-18.0) g/dL Hct (42-52) % MCV (80-100) fL MCH (25-34) pg MCHC (32-36) g/dL RDW Std Deviation (36.4-46.3) fL RDW Coeff of Sarah (11.5-14.5) % Plt Count (130-400) K/uL MPV (7.4-10.4) fL Immature Gran % (Auto) % Neut % (Auto) % Lymph % (Auto) % Waller % (Auto) % Eos % (Auto) % Baso % (Auto) % Neut # (Auto) (1.4-6.5) K/uL Lymph # (Auto) (1.2-3.4) K/uL Waller # (Auto) (0.11-0.59) K/uL Eos # (Auto) (0-0.5) K/uL Baso # (Auto) (0-0.2) K/uL Immature Gran # (Auto) (0.00-0.02) K/uL Polychromasia Acanthocytes (Spur) PT (9.0-12.0) Seconds INR (0.9-1.1) APTT (21.0-31.0) Seconds PTT Ratio Sodium 134 L Potassium 4.4 Chloride 102 Carbon Dioxide 19 L Anion Gap 13.0 H BUN 26 H Creatinine 1.26 Est Cr Clr Drug Dosing Not Reportable Est GFR ( Amer) 65.2 Est GFR (Non-Af Amer) 56.2 BUN/Creatinine Ratio 20.4 H Glucose 70 Lactate Cancelled 5.4 H* Calcium 7.6 L Magnesium 1.8 Total Bilirubin 0.6 AST 26 ALT 26 Alkaline Phosphatase 104 Troponin I 0.016 Total Protein 6.1 L Albumin 1.5 L Globulin 4.6 H Albumin/Globulin Ratio 0.3 L Procalcitonin (0-0.5) ng/ml Urine Color Urine Appearance (Clear) Urine pH (4.5-7.5) Ur Specific [place] (1.000-1.030) Urine Protein (Negative) Urine Glucose (UA) (Negative) Urine Ketones (Negative) Urine Blood (Negative) Urine Nitrite (Negative) Urine Bilirubin (Negative) Urine Urobilinogen (Negative) Ur Leukocyte Esterase (Negative) Urine WBC (Auto) (0-5) /hpf Urine RBC (Auto) (0-4) /hpf U Hyaline Cast (Auto) (0-5) /lpf U Epithel Cells (Auto) (0-5) /lpf Urine Bacteria (Auto) (Negative) Ur Renal Epithelial Cell Urine Yeast (None Prsent) COVID-19 Eval Order SARS-CoV-2 (PCR) (Negative) Influenza Type A (PCR) (Neg) Influenza Type B (PCR) (Neg) RSV (RT-PCR) (Neg) 07/23/20 Range/Units 15:12 WBC (4.8-10.8) K/uL RBC (4.7-6.1) M/uL Hgb (14.0-18.0) g/dL Hct (42-52) % MCV (80-100) fL MCH (25-34) pg MCHC (32-36) g/dL RDW Std Deviation (36.4-46.3) fL RDW Coeff of Sarah (11.5-14.5) % Plt Count (130-400) K/uL MPV (7.4-10.4) fL Immature Gran % (Auto) % Neut % (Auto) % Lymph % (Auto) % [place] % (Auto) % Eos % (Auto) % Baso % (Auto) % Neut # (Auto) (1.4-6.5) K/uL Lymph # (Auto) (1.2-3.4) K/uL [place] # (Auto) (0.11-0.59) K/uL Eos # (Auto) (0-0.5) K/uL Baso # (Auto) (0-0.2) K/uL Immature Gran # (Auto) (0.00-0.02) K/uL Polychromasia Acanthocytes (Spur) PT (9.0-12.0) Seconds INR (0.9-1.1) APTT (21.0-31.0) Seconds PTT Ratio Sodium Potassium Chloride Carbon Dioxide Anion Gap BUN Creatinine Est Cr Clr Drug Dosing Est GFR ( Amer) Est GFR (Non-Af Amer) BUN/Creatinine Ratio Glucose Lactate Calcium Magnesium Total Bilirubin AST ALT Alkaline Phosphatase Troponin I Total Protein Albumin Globulin Albumin/Globulin Ratio Procalcitonin (0-0.5) ng/ml Urine Color Yellow Urine Appearance Cloudy A (Clear) Urine pH 5.0 (4.5-7.5) Ur Specific [place] 1.017 (1.000-1.030) Urine Protein Negative (Negative) Urine Glucose (UA) Negative (Negative) Urine Ketones Negative (Negative) Urine Blood 2+ H (Negative) Urine Nitrite Negative (Negative) Urine Bilirubin Negative (Negative) Urine Urobilinogen Negative (Negative) Ur Leukocyte Esterase 2+ H (Negative) Urine WBC (Auto) >30 H (0-5) /hpf Urine RBC (Auto) 10-30 H (0-4) /hpf U Hyaline Cast (Auto) 10-30 H (0-5) /lpf U Epithel Cells (Auto) >30 H (0-5) /lpf Urine Bacteria (Auto) Negative (Negative) Ur Renal Epithelial Cell Not Reportable Urine Yeast Budding A (None Prsent) COVID-19 Eval Order SARS-CoV-2 (PCR) (Negative) Influenza Type A (PCR) (Neg) Influenza Type B (PCR) (Neg) RSV (RT-PCR) (Neg) Imaging Data Radiologist's Impression: XR femur RT 2V routine CLINICAL HISTORY: Postoperative examination AMPUTATION COMPARISON: None. DISCUSSION: There are postsurgical changes of a right lower extremity amputation performed 4 cm inferior to the intertrochanteric line of the proximal femur. There are overlying skin armando. IMPRESSION: Right proximal femoral amputation. ACT 112: Negative or not required by law. Electronically signed by: Nura Chairez M.D. 07/23/2020 2:28 PM Dictated: 07/23/20 1428Transcribed: 07/23/208 XR chest 1V portable CLINICAL HISTORY: SEPSIS RESPIRATORY FAILURE. SEPSIS. COMPARISON STUDY: 07/03/2020 FINDINGS: The left subclavian central venous catheter has been removed. There has been interval placement of endotracheal tube 28 mm above the kenny. There is pulmonary emphysema. There are bilateral lower lung zone pulmonary airspace opacities. There is blunting of the lateral costophrenic angles. IMPRESSION: 1. Pulmonary emphysema 2. Persistent bilateral lower lung zone pulmonary opacities suspicious for pneumonia or aspiration 3. Endotracheal tube 28 mm above the kenny 4. Interval removal of the left subclavian central venous catheter. ACT 112: Negative or not required by law. Electronically signed by: Nura Chairez M.D. 07/23/2020 2:28 PM Dictated: 07/23/20 1426Transcribed: 07/23/201425 [facility] Narrative 1328: The patient was evaluated in room A1. A complete history and physical exam was performed Cardiac monitoring: An order was placed for continuous cardiac monitoring. The monitor shows a rate of 140-160 with atrial fibrillation rhythm Patient hypotensive. Large-bore IV access obtained and fluid resuscitation was began. Patient's rectal temperature greater than 38 C. Thought that the patient is septic. Tylenol 1 g IV ordered for the patient. Broad-spectrum antibiotics cefepime and vancomycin will be ordered for the patient. Patient is not tolerating BiPAP or CPAP well due to the mask. We will try to improve the patient's oxygenation with high flow nasal cannula to see if he can better tolerate this. EMR reviewed. Patient was a full code as of June 11, 2020 and then became a DNR/DNI in June 2020. Patient was discharged from the hospital on July 21, 2020, 2 days ago. Patient was admitted from June 11, 2020 until July 21, 2020 at this facility. During that time the patient had a right AKA. Patient was found to be in hypoxic respiratory failure was concerning for a multifocal pneumonia. Patient did have a cardiac arrest on June 16, 2020. He has a history of having sacral wound ulcers. Patient was also being treated for pulmonary embolus on a heparin drip and the patient was discharged with Lovenox. Patient has a history of COPD. 1415: Patient remains tachycardic in A. fib RVR as well as hypotensive. He also remains very tachypneic. Patient's oxygen saturation is very difficult to capture. Patient was becoming increasingly diaphoretic and his respiratory status was becoming worse on high flow oxygen. Patient was becoming extremely tachypneic and is afraid he was going to fatigue out. I did asked the patient again if he would like to remain a DO NOT RESUSCITATE DO NOT INTUBATE or if he would like me to intubate him and place him on a ventilator to try and save his life. I did explain to the patient that I do think that if the patient did not allow me to intubate him he would most likely in the emergency department today. Patient did voice understanding and stated that he would like to be intubated to try to save his life and he would also like chest compressions if necessary. Patient was intubated. See procedure note. Given the patient's hyp otension, will start a benzodiazepine drip for sedation and will avoid propofol at this time. 1520: Patient's vital signs are improved on the ventilator. We are now able to obtain a oxygen saturation and with the IV fluids running the patient's blood pressure has improved as well as his heart rate. Charge nurse MRI did inform me that the patient's chemistries and lactic acid need to be redrawn due to lab error and dilution error. We will continue the IV fluids until that time. Discussed the case with [facility] hospitalist Dr. Segura will admit the patient under his service. Labs show a leukocytosis of 18. Hemoglobin 8.1. Stable from 2 days ago. INR is 4.3, therapeutic. Lactic acid on redraw is 5.4. This is after approximately 2 L of IV fluids. Procalcitonin is elevated 0.86. Urinalysis does not show any bacteria. Covid negative. Patient will be admitted to the ICU. Impression & Plan Septic shock Discharge Plan Visit Data Chief Complaint: Respiratory Distress ED Provider: Riki Morales Discharge Problem: Septic shock Patient Disposition: Admitted As Inpatient Discharge Instructions Interventions: ED Discharge Assessment Last Done: 07/23/20 15:57 Forms Stand Alone Forms: [facility] Prescriptions Prescriptions: No Action aspirin 81 mg tablet,delayed release (DR/EC) 81 mg PO DAILY RF: 0 atorvastatin 40 mg tablet 40 mg PO HS RF: 0 nitroglycerin 0.4 mg tablet, sublingual 0.4 mg SL DAILY PRN (Reason: Chest Pain) RF: 0 prednisone 5 mg tablet 5 mg PO BIDM RF: 0 ranolazine [Ranexa] 500 mg tablet extended release 12 hr 500 mg PO BID RF: 0 warfarin 5 mg tablet 5 mg PO DAILY Qty: 7 RF: 0 furosemide 40 mg Tablet 40 mg PO QAM Qty: 10 RF: 0 acetaminophen 500 mg Tablet 1,000 mg PO Q8 Qty: 10 RF: 0 lidocaine 5 % Adhesive Patch,Medicated 1 patch transdermal QAM Qty: 1 RF: 0 gabapentin 300 mg Capsule 300 mg PO QID Qty: 16 RF: 0 metoprolol succinate 25 mg Tablet Extended Release 24 Hr 12.5 mg PO BID Qty: 60 RF: 0 fluticasone propionate 50 mcg/actuation Watson,Suspension 2 spray BESSY BID Qty: 1 RF: 0 Breo Ellipta 100-25 mcg/dose Blister With Device 1 puff inhalation DAILY Qty: 1 RF: 0 guaifenesin [Mucinex] 600 mg Tablet Extended Release 12hr 1,200 mg PO Q12 Qty: 10 RF: 0 Incruse Ellipta 62.5 mcg/actuation Blister With Device 1 puff inhalation DAILY Qty: 1 RF: 0 sennosides-docusate sodium [Senna Plus] 8.6-50 mg Tablet 1 tab-cap PO QDL RF: 0 magnesium hydroxide 400 mg/5 mL Suspension 30 ml PO UD RF: 0 bisacodyl 10 mg Suppository 10 mg CA DAILY RF: 0 Fleet Enema 19-7 gram/118 mL Enema 118 ml CA DAILY RF: 0 ibuprofen 200 mg Tablet 800 mg PO TID RF: 0 docusate sodium 100 mg Capsule 100 mg PO BID RF: 0 enoxaparin [Lovenox] 60 mg/0.6 mL Syringe 60 mg SUBCUT DAILY RF: 0 multivitamin,tx-minerals Tablet 1 tab PO DAILY RF: 0 cholecalciferol (vitamin D3) 50 mcg (2,000 unit) Tablet 50 mcg PO DAILY RF: 0 potassium chloride 20 mEq Tablet Extended Release 40 meq PO DAILY RF: 0 naloxone 4 mg/actuation Watson,Non-Aerosol 4 mg INTRANASAL ONCE RF: 0 polyethylene glycol 3350 [Miralax] 17 gram powder in packet 17 g PO QDL RF: 0 oxycodone 5 mg tablet 5 mg PO Q4H RF: 0 enoxaparin [Lovenox] 40 mg/0.4 mL syringe 50 mg subcut PM RF: 0 Referrals Referrals: Tatianna ALVA [Primary Care Provider] -
--- NOTE | 2020-07-23 17:11 | History & Physical Report ---
Date of Service July 23, 2020 Assessment & Plan (1) Septic shock: While he has plenty of possible sources for sepsis, his respiratory symptoms over the last day, as well as his ABG, lung exam, and chest x-ray point most heavily towards pneumonia. Is not entirely clear, given that he did have pneumonia about 3 or 4 weeks ago that certainly would cloud the lung exam and x- ray side of the picture, but given his progressive respiratory symptoms and ABG, I certainly suspect respiratory is her primary culprit. -Cover for MRSA, cover for Pseudomonas (discussed with ICU as far as possibly double covering for gram negatives given the severity of illness) -Aggressive supportive care -With his hypoxic and hypercapnic respiratory failure, he has now been intubatedongoing ventilator management (2) Pneumonia: See above, right now he is on vancomycin and cefepime. This should cover possible pathogens well, my main consideration would be whether or not he would benefit from double coverage for gram-negative's given the severity of his illnessI will defer to ICU expertise in this regard. Supportive care otherwise (3) Buttock wound: It is large, and deep, but on exam it does not appear that his buttocks wound is source of sepsisnothing appears infected about it right now, nor does his stump (4) Pulmonary embolism: Onset approximately 3 weeks agohe is currently anticoagulated on Coumadinhis INR is slightly high, all of this making recurrent PE very unlikely (5) Critical lower limb ischemia: Now status post very proximal right AKA. Wound appears intact (6) CAD (coronary artery disease): Noted. While he suffered quite a few serious events during his prior hosp italization, he did not have anything appearing consistent with a regular CA. Right now certainly demand ischemia would be of concern, but this would be remedied by supportive care and treating underlying causes, and is not showing any overt evidence of demand ischemia at this time. Continue to follow (7) Cardiomyopathy, ischemic: While his EF has been reasonable, he has behaved as a diastolic CHF type patient, ongoing vigilance, serial exams, and judicious use of diuretics when necessary (none appear necessary now) (8) COPD (chronic obstructive pulmonary disease): Definitely contributing to his hypercapnic respiratory failure. Vent management for now, bronchodilator/anticholinergics/inhaled steroids as appropriate (9) Chronic steroid use: Is chronically on 5 mg of prednisone twice daily, give consideration to stress dose steroids for his shock (10) Discharge planning issues: Admit to ICU He had previously been a DNR/DNI throughout his prior admission, except for his transient change to full code for OR for his limb amputationwhich was when he coded. Otherwise he did not want resuscitated. In the ER in discussions with the ER physician, he did want intubation at this time, but in keeping with his prior wishes I see it most consistent to continue aggressive supportive care as it relates to the pneumonia/hypoxic and hypercapnic respiratory failure related to the pneumonia and COPD (including his intubation), but have him be a DNR moving forward otherwise. As it relates to critical care issues such as central lines/arterial line/etc., given that during his prior admission he consented for the amputation, the wound revision, and the sacral debridement, I would think it would be consistent with what we have seen in his pattern of behavior and desires that if we are treating his pneumonia/sepsis he would want it treated as optimally as we can. In that respect I would see it reasonable to proceed with lines for intervention and monitoring as appropriate to his critical care status Admission and Anticipated Discharge Date Admission Date: July 23, 2020 History of Present Illness Chief Complaint: Dyspnea Primary Care Provider: ARTIE Tatianna Patient is intubated and sedated at the time that I see him, HPI and review of systems obtained from the ER physician as well as the penitentiary guards. The penitentiary guards noted that after leaving the hospital Friday, he looked fine, looks fine all through Friday night. They noted there was some difficulty with the wound VAC then, as well as some sort of difficulty with his [place] a little bit then. However none of that seem to be of a major concern. Friday (yesterday) they noted him starting to look a little bit more short of breath, working a little bit harder to breathe. They asked him if he was okayhe said that he was fine, but they noted that he is certainly more of a symptom minimizes than anything. They also noted that he was losing his appetite through the day, seem to be very easily fatigued and very easily made dyspneic, and as the day progressed got a bit more somnolent and pale. Today is that continued to worsen he was brought to the ER for further evaluation. Here in the ER, in discussions with the ER physician, the patient appeared essentially in extremis with severe respiratory distress that was not able to be remedied with high flow oxygen or BiPAP. The ER physician directly asked the patient if he would want to be intubated or kept comfortableand the patient clearly stated that he wanted to be intubated. HPI and review of systems otherwise unobtainable Of note patient had just been discharged from a very long and arduous greater than month-long admission during which time he had a right lower extremity very proximal above-knee amputation, healthcare associated pneumonia that appeared consistent with MRSA, cardiac arrest with successful resuscitation preop at the time of his leg amputation, pulmonary embolism, a large sacral ulcer that required extensive debridement including essentially resecting most of his gluteus estela muscle, wound dehiscence of his stump that required revision, and a degree of chronic oxygen dependence that seem to relate to all of the above Allergies Allergy/AdvReac Type Severity Reaction Status Date / Time clindamycin Allergy Unknown Unknown Verified 06/11/20 20:20 Penicillins Allergy Unknown Unknown Verified 06/11/20 20:20 Home Medications Medication Instructions Recorded Confirmed Type aspirin 81 mg tablet,delayed 81 mg PO DAILY 05/26/19 07/23/20 History release atorvastatin 40 mg tablet 40 mg PO HS 05/26/19 07/23/20 History nitroglycerin 0.4 mg sublingual 0.4 mg SL DAILY PRN 05/26/19 07/23/20 History tablet prednisone 5 mg tablet 5 mg PO BIDM 05/26/19 07/23/20 History ranolazine 500 mg tablet,extended 500 mg PO BID 05/26/19 07/23/20 History release,12 hr acetaminophen 1,000 mg PO Q8 #10 tab 07/21/20 07/23/20 Rx fluticasone furoate-vilanterol 1 puff INHALATION DAILY #1 ea 07/21/20 07/23/20 Rx [Breo Ellipta] fluticasone propionate 2 spray BESSY BID #1 ml 07/21/20 07/23/20 Rx furosemide 40 mg PO QAM #10 tab 07/21/20 07/23/20 Rx gabapentin 300 mg PO QID #16 cap 07/21/20 07/23/20 Rx guaifenesin [Mucinex] 1,200 mg PO Q12 #10 tab 07/21/20 07/23/20 Rx lidocaine 1 patch TRANSDERMAL QAM #1 ea 07/21/20 07/23/20 Rx metoprolol succinate 12.5 mg PO BID #60 tab 07/21/20 07/23/20 Rx umeclidinium [Incruse Ellipta] 1 puff INHALATION DAILY #1 ea 07/21/20 07/23/20 Rx warfarin 5 mg PO DAILY #7 tab 07/21/20 07/23/20 Rx bisacodyl 10 mg PA DAILY 07/23/20 07/23/20 History cholecalciferol (vitamin D3) 50 mcg PO DAILY 07/23/20 07/23/20 History docusate sodium 100 mg PO BID 07/23/20 07/23/20 History enoxaparin [Lovenox] 50 mg SUBCUT PM 07/23/20 07/23/20 History enoxaparin [Lovenox] 60 mg SUBCUT DAILY 07/23/20 07/23/20 History ibuprofen 800 mg PO TID 07/23/20 07/23/20 History magnesium hydroxide 30 ml PO UD 07/23/20 07/23/20 History multivitamin,tx-minerals 1 tab PO DAILY 07/23/20 07/23/20 History naloxone 4 mg INTRANASAL ONCE 07/23/20 07/23/20 History oxycodone 5 mg PO Q4H 07/23/20 07/23/20 History polyethylene glycol 3350 [Miralax] 17 g PO QDL 07/23/20 07/23/20 History potassium chloride 40 meq PO DAILY 07/23/20 07/23/20 History sennosides-docusate sodium [Senna 1 tab-cap PO QDL 07/23/20 07/23/20 History Plus] sodium phosphates [Fleet Enema] 118 ml PA DAILY 07/23/20 07/23/20 History Past Med/Surg History Medical History AAA (abdominal aortic aneurysm) CAD (coronary artery disease) Cardiomyopathy, ischemic CHF (congestive heart failure) Chronic steroid use COPD (chronic obstructive pulmonary disease) Critical lower limb ischemia Dyslipidemia Emphysema of lung History of CA (myocardial infarction) Ischemia of right lower extremity Peripheral vascular disease Tobacco abuse Surgical History History of percutaneous coronary intervention Hx of cardiac catheterization Family History Other Family history non-contributory Social History Smoking Status: Unknown if ever smoked Tobacco Type: Cigarettes Age Started Using Tobacco: 18; packs per day: 1; Number of Years Since Quit: 2; Hx Alcohol Use: No Hx Substance Use: No Preferred Language: Croatian Communication Ability: Effective Visual Impairment: No Limitations E Business Consultant Required: No Beliefs That Will Affect Care: None marital status: / Current Living Situation: Other Current Living Situation Comment: [facility] How many Children do You have: 1 Feels Safe at Home: Yes Assistive Devices: Walker Review of Systems Review of Systems: Unobtainable due to cognitive status Physical Exam Physical Exam: In general he is intubated sedated and nonresponsive HEENT normocephalic atraumatic mucous membranes are moist, endotracheal tube is intact with no local breakdown Cardio somewhat distant tachycardic no rubs murmurs or gallops Lungs are very quiet probably more diminished base left may be faint rales base right no rhonchi no wheeze on the ventilator, he shows and even chest rise and fall Abdomen soft nondistended no guarding no rigidity. Nothing appears tender, but obviously he is intubated and sedated Extremities he has a very proximal right lower extremity AKA, the wound appears overall clean dry and intact, so a little bit bruised around the armando, but there is no erythema no exudate no dehiscence. His very large sacral ulcer appears deep but clean, there is no exudate, there is no surrounding tracking erythema, overall the tissue appears quite pink. Otherwise skin shows no other rashes, pallor, or icterus left lower extremity shows no erythema edema or cords Neuro is very difficult to assess due to him being intubated and sedated, but he shows no asymmetry or anything umair to a focal neuro deficitas best can be assessed cranial nerves II through XII appear to be intact, he shows no contractures or anything else that would suggest a motor deficit, obviously sensation cannot be checked Mental status has him intubated and sedated GUFoley in place no overtabnormal findings noted Labs and x-rays reviewed Results & Data Results & Data ([place]) Vital Signs (Past 12 Hours) Vital Signs Temp Pulse Pulse Resp BP BP Pulse Ox 07/23/20 16:39 112 H 21 103/62 07/23/20 16:05 112 H 118/76 100 07/23/20 16:00 120 H 114/65 100 07/23/20 15:55 122 H 117/83 100 07/23/20 15:50 118 H 115/83 100 07/23/20 15:45 117 H 131/78 100 07/23/20 15:40 119 H 128/92 100 07/23/20 15:35 119 H 131/80 100 07/23/20 15:30 119 H 132/87 100 07/23/20 15:25 118 H 125/87 100 07/23/20 15:20 120 H 132/83 98 07/23/20 15:15 120 H 121/78 100 07/23/20 15:10 110 H 128/78 100 07/23/20 15:06 96 07/23/20 15:05 120 H 119/81 96 07/23/20 15:01 123 H 07/23/20 15:00 124 H 125/78 07/23/20 14:55 127 H 103/83 07/23/20 14:50 124 H 16 07/23/20 14:45 125 H 15 99/69 L 07/23/20 14:40 125 H 18 113/67 07/23/20 14:35 124 H 16 106/75 07/23/20 14:31 120 H 21 07/23/20 14:30 122 H 16 105/71 07/23/20 14:25 119 H 19 97/65 L 07/23/20 14:20 120 H 29 H 108/58 L 07/23/20 14:15 123 H 27 H 107/75 07/23/20 14:10 126 H 16 95/71 L 07/23/20 14:07 121 H 16 07/23/20 14:06 128 H 17 114/62 07/23/20 14:00 131 H 37 H 07/23/20 13:50 133 H 40 H 81 L 07/23/20 13:47 133 H 40 H 86/65 L 84 L 07/23/20 13:40 137 H 38 H 96/66 L 07/23/20 13:36 131 H 36 H 07/23/20 13:34 138 H 33 H 90/69 L 07/23/20 13:29 38 H 07/23/20 13:25 101.7 F H 123 H 37 H Code Status & VTE Plan VTE Prophylaxis Plan VTE Prophylaxis will be ordered: Yes PG Care Time/CCT Total # of Minutes Spent Total Time Spent with Patient: Total time spent is greater than 50% in coordination of care (as documented) at patient's floor/unit and/or counseling patient: Coding Level of Care Code 84924 Initial Inpt Care Lvl 3 Diagnoses Septic shock A41.9; R65.21 Pneumonia J18.9 Laterality: right Lung location: lower lobe of lung Pneumonia type: due to unspecified organism Buttock wound S31.809A Pulmonary embolism I26.99 Critical lower limb ischemia I70.229 CAD (coronary artery disease) I25.118 Coronary Disease-Associated Artery/Lesion type: algaaciq artery [place] vs. transplanted heart: algaaciq heart Associated angina: with stable angina Cardiomyopathy, ischemic I25.5 COPD (chronic obstructive pulmonary disease) J44.9 COPD type: unspecified COPD Chronic steroid use Discharge planning issues Z02.9 (1) Pneumonia Laterality: right Lung location: lower lobe of lung Pneumonia type: due to unspecified organism Qualified Code(s): J18.9 - Pneumonia, unspecified organism (2) CAD (coronary artery disease) Coronary Disease-Associated Artery/Lesion type: algaaciq artery [place] vs. transplanted heart: algaaciq heart Associated angina: with stable angina Qualified Code(s): I25.118 - Atherosclerotic heart disease of algaaciq coronary artery with other forms of angina pectoris (3) COPD (chronic obstructive pulmonary disease) COPD type: unspecified COPD Qualified Code(s): J44.9 - Chronic obstructive pulmonary disease, unspecified
[2020-07-23] MEDS: NORMOSOL-R 1,000 ML IV SCH (17:39)
[2020-07-23] MEDS ORDERED: NOREPINEPHRINE/D5W 8 MG/508 ML IV ONE (17:46)
[2020-07-23 17:49] LABS: Base Excess ABG -10.8 mEq/L (-9-1.8); HCO3 ABG 18 mmol/L (19-24); Oxygen Saturation ABG 89.7 % (90-95); PCO2 ABG 54 mmHg (35-46); PO2 ABG 74 mmHg (80-95)
[2020-07-23 17:51] LABS: Allen Test POS (Pos)
[2020-07-23 17:55] LABS: pH ABG 7.14 (7.35-7.45)
[2020-07-23] MEDS ORDERED: VANCOMYCIN CONSULT ACTIVE PRN (18:00)
[2020-07-23] MEDS: NOREPINEPHRINE/D5W 8 MG/508 ML BAG IV SCH ×3 (18:01→23:23)
[2020-07-23] MEDS ORDERED: SODIUM BICARB 8.4% INJ 50 MEQ/50 ML SYR IV STA (20:43)
--- NOTE | 2020-07-23 20:47 | Procedure Note ---
Procedure Note Date of Service July 23, 2020 Procedure: Arterial Line Placement Attending: Dr. Richards APC: Ernie Nguyen PA-C Indication: Monitoring on Pressors Anesthesia: None Emergent consent implied in the setting of need for close hemodynamic monitoring with escalating doses of vasopressor support as well as need for frequent ABGs in the metabolically acidotic individual. A time-out was completed verifying correct patient, procedure, site, positioning, and implant(s) or special equipment if applicable. Allens test was performed to ensure adequate perfusion. Patients LEFT wrist was prepped and draped in the usual sterile fashion. Ultrasound guidance was used to aid needle placement. A 20g Arrow arterial line was introduced into the LEFT artery. Catheter was threaded, and the needle was removed with appropriate blood return. Good waveform was observed. The patient tolerated the procedure well. Confirmation of placement with ultrasound. Blood Loss: Minimal Complications: None Procedural Ultrasound Guidance: Procedure Date: 07/23/2020 Indication: Pressors, Frequent ABGs, Frequent Lab Draws Attending: Dr. Richards APC: Ernie Nguyen PA-C Artery Identified: YES Line confirmed in Artery with ultrasound: YES Complications: NONE Patient tolerated procedure: WELL Coding CPT Codes Tubes, Drains, and Vasc Access - Tubes, Drains, and Vasc Access: [id number] Place Catheter In Artery ([id number]) [facility] [place] Codes (Charges) Tubes, Drains, and Vasc Access Procedure 2: Tubes, Drains, and Vasc Access: [id number] Place Catheter In Artery
--- NOTE | 2020-07-23 20:48 | Procedure Note ---
Procedure Note Date of Service July 23, 2020 Procedure: Internal Jugular Central Line Placement Attending: Dr. Richards APC: Ernie Nguyen PA-C Indication: Central Drug Administration, Poor Venous Access, Multiple Lab Draws Necessary, etc. Anesthesia: Lidocaine 1% Emergent consent implied in the setting of poor peripheral access and need for escalating amounts of drips including escalating doses of vasopressors. Unable to obtain consent secondary to intubation status. A time-out was completed verifying correct patient, procedure, site, positioning, and implants(s) or special equipment if applicable. Patients RIGHT Neck was cleansed and draped in the typical sterile fashion using Chloraprep. The Internal Jugular Vein and Carotid Artery were identified using ultrasound. The superficial tissue was anesthetized using 3.0 mL of 1% lidocaine without epinephrine under direct visualization with the ultrasound. After adequate an esthetization was achieved, the Internal Jugular vein was cannulated under direct ultrasound guidance using an introducer needle on a syringe. Good venous blood return was maintained prior to removal of syringe from introducer needle. Using Seldinger Technique, a guide wire was advanced through the introducer needle without resistance. The introducer needle was removed and ultrasound images were obtained of the guide wire within the Internal Jugular Vein and saved to the patients medical record. The dilator was advanced to the vessel without resistance. The dilator was exchanged for the triple lumen catheter which was advanced into the vessel without resistance. The guide wire was removed intact from the catheter without issue. Claves were placed on each catheter tip with confirmation of good blood flow from each lumen. Each port was easily flushed with sterile saline. The catheter was placed at 16 cm and sutured in place. BioPatch was applied to the catheter and a sterile Tegaderm d ressing was applied over the catheter with careful attention to sterility. Patient tolerated procedure well. No immediate complications were met. Post procedure x-ray was completed, placement was appropriate and no pneumothorax was noted. Images obtained are saved for permanent record Procedural Ultrasound Guidance: Procedure Date: 07/23/2020 Indication: Pressors, Poor Peripheral Access, Need for frequent lab draws Attending: Dr. Richards APC: Ernie Nguyen PA-C Artery AND Vein visualized: YES Compressible Vein: YES Guidewire or Short Catheter seen in vein prior to dilation: YES Line confirmed in Vein with ultrasound: YES Images obtained are saved for permanent record. Coding CPT Codes Tubes, Drains, and Vasc Access - Tubes, Drains, and Vasc Access: [id number] Insertion Of Non-tunneled Catheter Age 7 Yrs> ([id number]) Tubes, Drains, and Vasc Access - Tubes, Drains, and Vasc Access: [id number] Ultrasound Guidance For Vascular ([id number]) [facility] [place] Procedure Codes (Charges) Tubes, Drains, and Vasc Access Procedure 3: Tubes, Drains, and Vasc Access: [id number] Insertion Of Non-tunneled Catheter Age 7 Yrs> Procedure 4: Tubes, Drains, and Vasc Access: [id number] Ultrasound Guidance For Vascular
--- NOTE | 2020-07-23 20:50 | Communication Note ---
Date of Service: July 23, 2020 1930: Patient had been intubated in the emergency department secondary to respiratory distress. Patient was placed on Levophed to maintain appropriate MAPs. Upon my arrival at change of shift, the patient was requiring increasing doses of vasopressors. Patient was down to 1 peripheral IV. 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 Nursing staff unable to obtain peripheral access. Patient requires central access as secondary to escalating doses of vasopressors and need for multiple drips. Arterial line and CVL were placed by myself. Please see separate notes. Orders placed for addition of vasopressin. Repeat labs were obtained. The patient received 2 A of bicarb as well as calcium chloride and Solu-Cortef. Patient will continue on stress dose steroids. Patient was noted to have improving hemodynamics after interventions. I have personally spent 60 minutes of critical care time in the direct manageme nt of this patient. This is a life/limb threatening event. This includes time spent evaluating patient, direct bedside care, chart review, placing orders, interpretation of diagnostic studies, discussion with consultants, patient, and family members, as well as other required patient management activities. This time is exclusive of all separately billable procedures, and teaching time and separate from and in addition to any other critical care service time. Coding Level of Care Code Critical Care 1st 30-74 mins Time Spent (min) 60
[2020-07-23] MEDS: FAMOTIDINE 20 MG in SYRINGE 3 ML IV SCH (21:02)
[2020-07-23] MEDS: VASOPRESSIN 20 UNITS in 0.9 % SODIUM CHLORIDE 100 ML IV SCH (21:04)
[2020-07-23 21:10] LABS: iSTAT Art Bld Gas pCO2 Correct 55 mmHg (35-46); iSTAT Arterial Blood Gas HCO3 17 meg/L (19-24); iSTAT Arterial Blood Gas pCO2 56 mmHg (35-46); iSTAT Arterial Blood Gas pH 7.08 (7.35-7.45); iSTAT Arterial Blood Gas pO2 99 mmHg (80-95); iSTAT Arterial Blood Gas pO2 C 97; iSTAT Carbon Dioxide 18 mmol/L (24-31); iSTAT FiO2 100 %; iSTAT Hematocrit 25 % (42-52); iSTAT Hemoglobin 8.5 g/dl (14.0-18.0); iSTAT Potassium 6.4 mmol/L (3.3-5.0); iSTAT Site Art Line; iSTAT Sodium 130 mmol/L (135-144)
[2020-07-23 21:27] LABS: Hematocrit (blood only) 23.5 % (42-52); Hemoglobin 7.2 g/dL (14.0-18.0)
[2020-07-23 21:57] LABS: Calcium 5.9 mg/dl (8.5-10.1); Creatinine Clr Calc Pharmacy 33.3 ml/min; Est GFR (African American) 62.7; Est GFR (Non-African American) 54.1
[2020-07-23 21:58] LABS: BUN Creatinine Ratio 20.5 (10-20); Magnesium 1.7 mg/dl (1.8-2.4); Phosphorus 7.8 mg/dl (2.5-4.9)
[2020-07-23] MEDS ORDERED: MAGNESIUM SULFATE / D5W 1 GM/100 ML BAG IV ONE (22:18)
[2020-07-23] MEDS ORDERED: HYDROCORTISONE SOD 100 MG in SYRINGE 0 ML IV STA (22:18)
[2020-07-23] MEDS ORDERED: CALCIUM CHLORIDE 10% 1,000 MG in SODIUM CHLORIDE 0.9% 50 ML IV STA (22:18)
[2020-07-23 22:54] LABS: iSTAT Art Bld Gas pCO2 Correct 41 mmHg (35-46); iSTAT Art Bld Gas pH Corrected 7.257 (7.35-7.45); iSTAT Arterial Blood Gas HCO3 18 meg/L (19-24); iSTAT Arterial Blood Gas pCO2 41 mmHg (35-46); iSTAT Arterial Blood Gas pH 7.26 (7.35-7.45); iSTAT Arterial Blood Gas pO2 153 mmHg (80-95); iSTAT Arterial Blood Gas pO2 C 152; iSTAT Carbon Dioxide 20 mmol/L (24-31); iSTAT FiO2 100 %; iSTAT Hematocrit 24 % (42-52); iSTAT Hemoglobin 8.2 g/dl (14.0-18.0); iSTAT Site Art Line; iSTAT Sodium 132 mmol/L (135-144)
[2020-07-24] MEDS ORDERED: fentaNYL citrate 100 MCG/2 ML VIAL IV PRN (03:11)
[2020-07-24] MEDS: VASOPRESSIN 20 UNITS in 0.9 % SODIUM CHLORIDE 100 ML IV SCH ×2 (03:39→11:56)
[2020-07-24 03:51] LABS: iSTAT Art Bld Gas pCO2 Correct 40 mmHg (35-46); iSTAT Art Bld Gas pH Corrected 7.037 (7.35-7.45); iSTAT Arterial Blood Gas HCO3 11 meg/L (19-24); iSTAT Arterial Blood Gas pCO2 40 mmHg (35-46); iSTAT Arterial Blood Gas pH 7.04 (7.35-7.45); iSTAT Arterial Blood Gas pO2 99 mmHg (80-95); iSTAT Arterial Blood Gas pO2 C 100; iSTAT Carbon Dioxide 12 mmol/L (24-31); iSTAT FiO2 80 %; iSTAT Hematocrit 22 % (42-52); iSTAT Hemoglobin 7.5 g/dl (14.0-18.0); iSTAT Potassium 7.9 mmol/L (3.3-5.0); iSTAT Site Art Line; iSTAT Sodium 127 mmol/L (135-144)
[2020-07-24] MEDS: HYDROCORTISONE SOD 50 MG in SYRINGE 0 ML IV SCH ×2 (04:36→11:33)
[2020-07-24] MEDS: NORMOSOL-R 1,000 ML IV SCH (04:36)
[2020-07-24 05:10] LABS: Partial Thromboplastin Ratio 2.4; Prothrombin Time 88.1 Seconds (9.0-12.0)
[2020-07-24 05:20] LABS: Hematocrit (blood only) 22.4 % (42-52); Hemoglobin 6.6 g/dL (14.0-18.0); INR 10.5 (0.9-1.1); Mean Corpuscular Hemoglobin 28.1 pg (25-34); Mean Corpuscular Hgb Conc 29.5 g/dL (32-36); Mean Corpuscular Volume 95.3 fL (80-100); Mean Platelet Volume 11.7 fL (7.4-10.4); Nucleated RBC # (auto) 0.15 K/uL (0-0); Nucleated RBC % (auto) 0.7 %; Platelet Count 238 K/uL (130-400); RDW Coefficient of Variation 18.9 % (11.5-14.5); RDW Standard Deviation 64.2 fL (36.4-46.3); Red Blood Count 2.35 M/uL (4.7-6.1); White Blood Count 20.05 K/uL (4.8-10.8)
[2020-07-24] MEDS ORDERED: PHYTONADIONE 10 MG in SODIUM CHLORIDE 0.9% 50 ML IV ONE (05:22)
[2020-07-24] MEDS ORDERED: SODIUM CHLORIDE 0.9% 250 ML IV PRN (05:22)
[2020-07-24 05:23] LABS: ALC (manual) 4.33 K/uL (1.2-3.4); ANC (manual) 13.13 K/uL (1.4-6.5); Echinocytes 1+; Lymphocytes # (manual) 4.33 K/uL (1.2-3.4); Lymphocytes % (manual) 21.6 %; Metamyelocytes # (manual) 1.56 K/uL (0-0); Metamyelocytes % (manual) 7.8 %; Monocytes # (manual) 0.68 K/uL (0.11-0.59); Monocytes % (manual) 3.4 %; Myelocytes # (manual) 0.34 K/uL (0-0); Myelocytes % (manual) 1.7 %; Neutrophils # (manual) 13.13 K/uL (1.4-6.5); Neutrophils % (manual) 65.5 %; Polychromasia 1+; Spherocytes 1+
[2020-07-24] MEDS: NOREPINEPHRINE/D5W 8 MG/508 ML BAG IV SCH (05:41)
[2020-07-24 05:46] LABS: Albumin Globulin Ratio 0.3 (0.9-2); Albumin Level 0.8 gm/dl (3.4-5.0); BUN Creatinine Ratio 22.8 (10-20); Bilirubin,Total 0.6 mg/dl (0.2-1); Globulin 2.9 gm/dl (2.5-4.0); Magnesium 2.5 mg/dl (1.8-2.4); Potassium 6.3 mmol/L (3.5-5.1); Total Protein 3.7 gm/dl (6.4-8.2)
[2020-07-24 05:47] LABS: Creatinine Clr Calc Pharmacy 32.5 ml/min; Est GFR (Non-African American) 52.7
[2020-07-24 05:49] LABS: Phosphorus 9.4 mg/dl (2.5-4.9)
[2020-07-24] MEDS ORDERED: DEXTROSE 50% 50 ML SYRINGE IV ONE (05:50)
[2020-07-24] MEDS ORDERED: STAT IV STA (06:02)
[2020-07-24] MEDS ORDERED: SODIUM BICARB 8.4% INJ 50 MEQ/50 ML SYR IV STA ×2 (06:02→07:52)
[2020-07-24] MEDS ORDERED: SODIUM BICARB 8.4% INJ 50 MEQ/50 ML SYR IV ONE (06:05)
[2020-07-24] MEDS ORDERED: CALCIUM CHLORIDE 10% 1,000 MG in SODIUM CHLORIDE 0.9% 50 ML IV STA (06:06)
[2020-07-24] MEDS ORDERED: SODIUM BICARBONATE 8.4% 150 MEQ in DEXTROSE 5% 1,000 ML IV SCH (06:15)
--- NOTE | 2020-07-24 07:05 | Hospitalist Progress Note ---
Date of Service July 24, 2020 Assessment & Plan (1) Septic shock: 75 y/o male who presented for readmission on 07/23/20 for respiratory distress and is being treated in the ICU for septic shock. Vent day 2. ICU day 2. 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 Wound appears intact CAD (coronary artery disease) Noted. While he suffered quite a few serious events during his prior hospitalization, he did not have anything appearing consistent with a regular ND. Right now certainly demand ischemia would be of concern, but this would be remedied by supportive care and treating underlying causes, and is not showing any overt evidence of demand ischemia at this time. Continue to follow Cardiomyopathy, ischemic While his EF has been reasonable, he has behaved as a diastolic CHF type patient, ongoing vigilance, serial exams, and judicious use of diuretics when necessary (none appear necessary now) COPD (chronic obstructive pulmonary disease) Definitely contributing to his hypercapnic respiratory failure. Vent management for now, bronchodilator/anticholinergics/inhaled steroids as appropriate Chronic steroid use Is chronically on 5 mg of prednisone twice daily, give consideration to stress dose steroids for his shock Discharge planning issues Admit to ICU Admission and Anticipated Discharge Date Admission Date: July 23, 2020 Subjective Patient was sedated. He is requiring pressor support, vasoporessin, levophed, and hydrocrotisone. He was on Versed 3 overnight. Review of Systems Review of Systems: ROS limited by patient's sedated staet. Physical Exam Physical Exam: General: Sedated. HEENT: Atraumatic, normocephalic. Pupils symmetric. Delayed pupil reflex. Negative corneal reflex per ICU resident exam, witnessed by me. Pulm: Mechanical ventilation. Left anterior and lateral lung field is clear. Right anterior and lateral lung field has gurgling noise on inspiration. Cardiac: RRR, -mrg. Abdominal: Nontender, nondistended, soft. Integumentary: R AKA stump: no discharge. Some areas of wound edge discoloration, no erythema/edema. Neuro: Negative gag reflex per ICU resident exam, witnessed by me. Results & Data Results & Data ([facility]) Vital Signs (Past 12 Hours) Vital Signs Temp Pulse Resp BP Pulse Ox 07/24/20 06:30 36.7 C 101 H 60 L 07/24/20 06:15 36.8 C 102 H 59 L 07/24/20 06:12 36.8 C 102 H 53 L 07/24/20 06:00 36.9 C 86 58 L 07/24/20 05:45 37.0 C 87 60 L 07/24/20 05:30 37.1 C 87 48 L 07/24/20 05:15 37.1 C 85 56 L 07/24/20 05:12 37.1 C 85 55 L 07/24/20 05:00 37.2 C 86 52 L 07/24/20 04:45 37.2 C 85 58 L 07/24/20 04:39 37.2 C 85 07/24/20 04:30 37.2 C 87 07/24/20 04:15 37.3 C 89 07/24/20 04:12 37.3 C 89 07/24/20 04:00 37.3 C 90 07/24/20 03:45 37.3 C 93 H 07/24/20 03:30 37.2 C 95 H 44 L 07/24/20 03:19 89 24 96 07/24/20 03:15 37.2 C 95 H 45 L 07/24/20 03:11 37.2 C 96 H 149/98 H 50 L 07/24/20 03:00 37.2 C 97 H 53 L 07/24/20 02:45 37.2 C 99 H 54 L 07/24/20 02:30 37.2 C 102 H 62 L 07/24/20 02:15 37.2 C 101 H 62 L 07/24/20 02:00 37.2 C 104 H 67 L 07/24/20 01:45 37.2 C 107 H 74 L 07/24/20 01:30 37.1 C 110 H 76 L 07/24/20 01:15 37.0 C 111 H 78 L 07/24/20 01:00 37.0 C 111 H 76 L 07/24/20 00:45 36.9 C 112 H 78 L 07/24/20 00:30 36.8 C 112 H 84 L 07/24/20 00:15 36.8 C 112 H 84 L 07/24/20 00:00 36.8 C 112 H 82 L 07/23/20 23:45 36.8 C 102 H 85 L 07/23/20 23:30 36.7 C 113 H 89 L 07/23/20 23:15 36.6 C 99 H 07/23/20 23:00 36.5 C 105 H 07/23/20 22:45 36.1 C L 113 H 07/23/20 22:30 34.5 C L 112 H 07/23/20 22:15 113 H 32 H 99 07/23/20 22:00 118 H 07/23/20 21:45 115 H 07/23/20 21:36 120 H 105/77 07/23/20 21:30 111 H 07/23/20 21:15 112 H 07/23/20 21:00 142 H 07/23/20 20:45 100 H 07/23/20 20:30 112 H 91 07/23/20 20:21 111 H 91/68 L 77 L 07/23/20 20:15 96 H 85 L 07/23/20 20:00 103 H 89 L 07/23/20 19:51 107 H 122/97 07/23/20 19:45 103 H 07/23/20 19:30 127 H 07/23/20 19:15 132 H Resident Activity Tracking Resident Involvement: Resident Care Provided Care Provided: Adult [facility] Medicine
[2020-07-24] MEDS ORDERED: VANCOMYCIN HCL 750 MG in SODIUM CHLORIDE 0.9% 500 ML IV SCH ×2 (08:00→12:00)
--- NOTE | 2020-07-24 08:04 | XRay Report ---
XR chest 1V portable CLINICAL HISTORY: Respiratory failure COMPARISON STUDY: 07/23/2020 FINDINGS: There is an endotracheal tube 2 cm above the kenny. There is an enteric tube positioned wi thin the stomach. There is a right internal jugular central venous catheter with its tip in the super ior vena cava. There is pulmonary emphysema. There are bilateral mid and lower lung zone airspace opa cities. There are small bilateral pleural effusions.[ IMPRESSION: 1. Pulmonary emphysema with persistent mid and lower lung zone airspace opacities and small bilateral pleural effusions 2. Satisfactory positioning of the lines and tubes. ACT 112: Negative or not required by law. Electronically signed by: Nura Chairez M.D. 07/24/2020 8:03 AM
--- NOTE | 2020-07-24 08:38 | XRay Report ---
XR chest 1V portable CLINICAL HISTORY: Pneumonia. COMPARISON STUDY: Chest radiograph July 24, 2019 at 8:35 PM. FINDINGS: Tip of the endotracheal tube is 1.6 cm above the kenny. Right internal jugular central zoya e remains in place. The nasogastric tube projects in the left lower hemithorax. This is probably with in the gastric fundus. There is no pneumothorax. There are trace bilateral pleural effusions. Emphyse ma is noted. Bilateral mid and lower lung airspace opacities have progressed. IMPRESSION: 1. Progression of the lateral mid and lower lung airspace opacities suggestive of pneumonia. 2. Tip of endotracheal tube 1.6 cm above the kenny. 3. Tip of nasogastric tube projects over the left lower hemithorax. The exact position is difficult t o determine by radiography although is likely within the gastric fundus. ACT 112: Negative or not required by law. Electronically signed by: Marquis Claire M.D. 07/24/2020 8:36 AM
[2020-07-24] MEDS: FAMOTIDINE 20 MG in SYRINGE 3 ML IV SCH (08:41)
--- NOTE | 2020-07-24 08:43 | Critical Care Progress Note ---
Date of Service July 24, 2020 Assessment & Plan (1) Sepsis with acute hypoxic respiratory failure: Reason Critically Ill: 75-year-old male with recent right LE AKA, PNA and DVT/PE (on Warfarin) who presented to [facility] ED on 07/23 for respiratory distress - he was fluid resuscitated, intubated and transferred to the ICU for further management of septic shock and acute hypoxic respiratory failure. Medical status is rapidly declining - currently in multi-organ failure. ICU day 2, intubation day 2. Neuro - [facility] ICU: unable to assess (sedated) - hold Versed to better assess neurologic status - continue PRN Fentanyl for pain - monitor RASS and BIS Cardiac - worsening septic shock - hypotensive to 80s/60s, febrile 38.7C, WBC 18 --> 20, lactate 5.4 --> 13.5, procalcitonin 0.86 --> 77.85 - required 2L crystalloid in the ED in addition to Normosol gtt and pressors - pressures now acceptable on multi-drug vasopressor regimen (Levophed/Vasopressin/Hydrocortisone) in addition to sodium bicarb gtt - continue sodium bicarbonate 150mEq @150cc/hr - continue vasopressor regimen to maintain MAP>65: Levophed/Vasopressor/Hydrocortisone - continue with abx as described below - strict I/Os Respiratory - acute hypoxic respiratory failure secondary to septic shock/pneumonia - intubated/sedated - Ventilator settings: AC/20/450/5/75, ABG 7.04/40/99/11 - progressive mixed respiratory/metabolic acidosis 2/2 respiratory failure/septic shock - increased RR to 26 today, decreased FiO2 to 70 - CXR showing progression bilateral lower lung opacities (with concern for aspiration PNA during last admission) - will hold Versed, as stated above GI - acutely elevated LFTs (ALT 1822, AST 6271) - suspect shock liver 2/2 septic shock - continue IV fluid resuscitation as above - NPO, continue OGT to suction RENAL/LYTES - Acute kidney injury - Cr 1.33 (baseline 0.4-0.5), BUN:Cr ratio 22.8, suspect pre-renal injury 2/2 septic shock - Hyperkalemia 7.9 --> 6.3 this morning - suspect 2/2 DIC and resultant hemolysis (see below) - Progressive lactic acidosis - Lactate 5.4 --> 13.5 today, metabolic acidosis as above - continue sodium bicarbonate 150mEq @150cc/hr as stated above - was also given Sodium Bicarbonate 100mEq x2 overnight, will give another 100mEq this morning in addition to gtt - Replace lytes as needed. - UA cloudy, 2+ LE, >30 WBC; Urine cx pending - decreased UOP 0.20 cc/kg/hr - suspect 2/2 septic shock - continue olmedo - strict I/Os as above ENDO - no history of diabetes or thyroid disease - no issues at this time HEME - chronic anemia 7-8 since AKA and subsequent surgeries, was at 10-11 before this, currently - currently Hgb 6.6, no signs of active bleeding - ordered repeat H/H at noon - transfuse as needed - progressively increasing coags (PT 88.1, INR 10.5, PTT 64), in the setting of multi-organ failure and shock liver, concerning for DIC - ordered DIC labs - pending - gave Phytonadione 5mg IV x1 this morning - continue to trend CBC and PT/PTT/INR ID - septic shock - hypotensive to 80s/60s, febrile 38.7C, leukocytosis 18, lactate 5.4, procalcitonin 0.86 - dirty UA (cloudy, 2+ LE, >30 WBC) and CXR showing persistent bilateral lower lung opacities (with concern for aspiration PNA during last admission) - urine and blood cultures pending - suspect pulmonary vs urinary source - received Vanco/Cefepime x1 in the ED - MRSA nares negative - d/c Vanco and continue with Cefepime - Monitor fever curve INTEGUMENTARY - wound care for sacral decubitus ulcer - currently no signs of cellulitis - continue to monitor closely while in ICU LINES/IV ACCESS - R IJ CVC, L radial a-line, PIVs, OG tube, olmedo intact DVT PROPHYLAXIS - hold pharmacologic ppx given elevated coags and possible DIC GI ppx: Famotidine 20mg IV BID CODE STATUS: DNR/DNI Disposition: ICU, medical status/prognosis is extremely guarded at this time Thank you for allowing us to be part of this patient's care. Please refer to Dr. Payan's documentation for any further recommendations. (2) Septic shock: (3) Symptomatic anemia: (4) Sacral decubitus ulcer: (5) Amputation above knee: (6) COPD (chronic obstructive pulmonary disease): (7) Peripheral vascular disease: (8) Pneumonia: Admission and Anticipated Discharge Date Admission Date: July 23, 2020 Supervising Physician Co-Signing Physician Notes Dr Cruz was the resident-physician during care of patient. I separately evaluated patient for flynn portions of the history and the exam. I was present during the critical portion of medical decision making, and I discussed the case with the resident. I generally agree with the findings and plan except for any additions/exceptions noted. Patient seen and examined at bedside. Patient was on midazolam 3mg at the time of examination. Continued at that time He was breathing with the vent. On the physical exam patient has no corneal, no pupillary, no gag. He has mottled skin appreciated from the bellybutton to his bilateral lower extremities Right stump has erythema. Decreased pulses appreciated bilaterally Decreased air entry bilaterally, positive crackles Patient's lactic acidosis went up to 13. It is very difficult to get saturation on him because of his cold extremities. His PaO2 on the ABG was 84. Patient's hemoglobin is trending down. He is in acute hepatic failure likely from shock liver. Vitamin K 5 mg given. Patient is also on hydrocortisone as his random cortisol level was low. For the severe acidosis that the patient had he got 100 mEq of bicarb last night. I will give 100 mEq of bicarb. Continue with iron 50 mg of bicarb in IV fluids. Hyperkalemia is likely from severe acidosis. Bicarb is 9 today. Overall prognosis is very poor given the patient is going into multiorgan failu re. I have personally spent 38 minutes of critical care time in the direct management of this patient. This is a life/limb threatening event. This includes time spent evaluating patient, direct bedside care, chart review, placing orders, interpretation of diagnostic studies, discussion with consu ltants, patient, and/or family members regarding treatment decisions, as well as other required patient management activities. This time is exclusive of all separately billable procedures, and teaching time and separate from and in addition to any other critical care service time. Subjective Yesterday evening the patient's vasopressor regimen was increased to include Levophed, Vasopressin and Hydrocortisone, due to persistent hypotension. His p ressures improved to 100s/70s and is now 149/98 - maintaining MAP>65. Patient also had a left radial arterial line and R IJ CVC placed overnight. Patient also received several doses of sodium bicarbonate for profound lactic acidosis. Remains intubated/sedated. Review of Systems Review of Systems: Unobtainable due to intubated/sedated Physical Exam Physical Exam: General: Intubated/sedated HEENT: Atraumatic, airway obstructed by endotracheal tube Pulm: Decreased air entry bilaterally, crackles bilaterally in lower lung lua, mild respiratory distress on vent, vent settings reviewed Cardiac: tachycardic rate, regular rhythm, -mrg. Radial pulses intact and symmetrical. Abdominal: soft, non-tender, non-distended, BS x 4 Skin: right lower extremity stump with closed surgical incision and sutures intact, with surrounding mottling of skin, no drainage. open sacral decubitus ulcer (~[id number]) without overlying necrotic tissue and without surrounding erythema/tracking/discharge. Mottling of skin on lower abdomen Neuro: pupils ~2mm and nonreactive, no corneal reflex and no gag reflex, unresponsive to verbal/tactile stimulation Results & Data Results & Data ([facility]) Vital Signs (Past 12 Hours) Vital Signs Temp Pulse Resp BP Pulse Ox 07/24/20 08:05 100 H 22 07/24/20 06:30 36.7 C 101 H 60 L 07/24/20 06:15 36.8 C 102 H 59 L 07/24/20 06:12 36.8 C 102 H 53 L 07/24/20 06:00 36.9 C 86 58 L 07/24/20 05:45 37.0 C 87 60 L 07/24/20 05:30 37.1 C 87 48 L 07/24/20 05:15 37.1 C 85 56 L 07/24/20 05:12 37.1 C 85 55 L 07/24/20 05:00 37.2 C 86 52 L 07/24/20 04:45 37.2 C 85 58 L 07/24/20 04:39 37.2 C 85 07/24/20 04:30 37.2 C 87 07/24/20 04:15 37.3 C 89 07/24/20 04:12 37.3 C 89 07/24/20 04:00 37.3 C 90 07/24/20 03:45 37.3 C 93 H 07/24/20 03:30 37.2 C 95 H 44 L 07/24/20 03:19 89 24 96 07/24/20 03:15 37.2 C 95 H 45 L 07/24/20 03:11 37.2 C 96 H 149/98 H 50 L 07/24/20 03:00 37.2 C 97 H 53 L 07/24/20 02:45 37.2 C 99 H 54 L 07/24/20 02:30 37.2 C 102 H 62 L 07/24/20 02:15 37.2 C 101 H 62 L 07/24/20 02:00 37.2 C 104 H 67 L 07/24/20 01:45 37.2 C 107 H 74 L 07/24/20 01:30 37.1 C 110 H 76 L 07/24/20 01:15 37.0 C 111 H 78 L 07/24/20 01:00 37.0 C 111 H 76 L 07/24/20 00:45 36.9 C 112 H 78 L 07/24/20 00:30 36.8 C 112 H 84 L 07/24/20 00:15 36.8 C 112 H 84 L 07/24/20 00:00 36.8 C 112 H 82 L 07/23/20 23:45 36.8 C 102 H 85 L 07/23/20 23:30 36.7 C 113 H 89 L 07/23/20 23:15 36.6 C 99 H 07/23/20 23:00 36.5 C 105 H 07/23/20 22:45 36.1 C L 113 H 07/23/20 22:30 34.5 C L 112 H 07/23/20 22:15 113 H 32 H 99 07/23/20 22:00 118 H 07/23/20 21:45 115 H 07/23/20 21:36 120 H 105/77 07/23/20 21:30 111 H 07/23/20 21:15 112 H 07/23/20 21:00 142 H 07/23/20 20:45 100 H 07/24/20 11:45 07/24/20 04:39 Resident Activity Tracking Resident Involvement: Resident Care Provided Care Provided: Adult Hospital Medicine (1) COPD (chronic obstructive pulmonary disease) COPD type: unspecified COPD Qualified Code(s): J44.9 - Chronic obstructive pulmonary disease, unspecified (2) Pneumonia Laterality: right Lung location: lower lobe of lung Pneumonia type: due to unspecified organism Qualified Code(s): J18.9 - Pneumonia, unspecified organism
[2020-07-24] MEDS ORDERED: PHYTONADIONE 5 MG in SODIUM CHLORIDE 0.9% 50 ML IV ONE (08:45)
[2020-07-24 08:59] LABS: Creatine Kinase 325 U/L (39-308)
[2020-07-24 11:34] LABS: Fibrinogen 335 mg/dl (184-400)
[2020-07-24 11:40] LABS: D Dimer 4180 ug/L FEU (0-500)
[2020-07-24] MEDS ORDERED: VANCOMYCIN HCL 750 MG in SODIUM CHLORIDE 0.9% 250 ML IV SCH (12:00)
[2020-07-24 12:22] LABS: Hematocrit (blood only) 17.2 % (42-52); Hemoglobin 5.2 g/dL (14.0-18.0)
--- NOTE | 2020-07-24 12:32 | Communication Note ---
Date of Service: July 24, 2020 Critical CARE addendum: Given the clinical deterioration of the patient with the going into multiorgan failure, acute renal failure and patient having no corneal, no gag and no pupillary while being off midazolam. The prognosis of the patient is very poor. Patient was DNR/DNI prior to coming to the hospital. I think prolonging the care here will be inappropriate and will prolong the inevitable with more suffering to the patient. I called the present doctor construction equipment overhauler Dr. Llanes, I discussed above findings with him. He agrees and understands that we have to go towards comfort measures. We will terminally extubate the patient and keep him comfortable. Please note the above document was generated using voice recognition software. It may contain grammatical, syntax or spelling errors.Any formal questions or concerns about the content, text or information contained within the body of this dictation should be directly addressed to the provider for clarification. Coding Level of Care Code Critical Care philippe addt'l 30 min Time Spent (min) 12
--- NOTE | 2020-07-24 12:38 | Billing Data ---
Date of Service July 24, 2020 Coding Level of Care Code Critical Care 1st 30-74 mins Time Spent (min) 38
--- NOTE | 2020-07-24 13:25 | Death Pronouncement Note ---
Date of Service July 24, 2020 Pronouncement Note Admission Date Admission Date: July 23, 2020 Contributing Factors (1) Sepsis with acute hypoxic respiratory failure: Contributing factors: Date and time of pronouncement: 07/24/20 1319. Name of provider: Dr. Brandin Stanley MD. Brief cause of : Mr. Lomeli passed from sepsis secondary to multiorgan failure and septic shock. His condition worsened despite mechanical ventilation and pressor support. Bedside evaluation: There was absence of pulse, respiration, and pupil response. Monitor displayed asystole. Assisted staff was notified by hospital staff and aware. (2) Septic shock: (3) Symptomatic anemia: (4) Sacral decubitus ulcer: (5) Amputation above knee: (6) COPD (chronic obstructive pulmonary disease): (7) Peripheral vascular disease: (8) Pneumonia: Additional Data Attending physician: Gucci Roche DO Supervising Physician Co-Signing Physician Notes I did not see the patient prior to his passing. [employer] team with lead in patient care with our team following for continuity. As reviewed in the ICU notes, the patient, after discussion with primary care physician at the skilled nursing, was extubated given his continued decline and poor prognosis. I did see the patient postmortem with the resident and agree with the pronouncement note as documented above. Upon exam, the patient was apneic, pulseless with asystole on the monitor. Resident Activity Tracking Resident Involvement: Resident Care Provided Care Provided: Adult Hospital Medicine
--- NOTE | 2020-07-24 13:39 | Discharge Summary ---
Date of Service July 24, 2020 Admission HPI Per Admitting Provider Patient is intubated and sedated at the time that I see him, HPI and review of systems obtained from the ER physician as well as the halfway guards. The halfway guards noted that after leaving the hospital Friday, he looked fine, looks fine all through Friday night. They noted there was some difficulty with the wound VAC then, as well as some sort of difficulty with his [place] a little bit then. However none of that seem to be of a major concern. Friday (yesterday) they noted him starting to look a little bit more short of breath, working a little bit harder to breathe. They asked him if he was okayhe said that he was fine, but they noted that he is certainly more of a symptom minimizes than anything. They also noted that he was losing his appetite through the day, seem to be very easily fatigued and very easily made dyspneic, and as the day progressed got a bit more somnolent and pale. Today is that continued to worsen he was brought to the ER for further evaluation. Here in the ER, in discussions with the ER physician, the patient appeared essentially in extremis with severe respiratory distress that was not able to be remedied with high flow oxygen or BiPAP. The ER physician directly asked the patient if he would want to be intubated or kept comfortableand the patient clearly stated that he wanted to be intubated. HPI and review of systems otherwise unobtainable Of note patient had just been discharged from a very long and arduous greater than month-long admission during which time he had a right lower extremity very proximal above-knee amputation, healthcare associated pneumonia that appeared consistent with MRSA, cardiac arrest with successful resuscitation preop at the time of his leg amputation, pulmonary embolism, a large sacral ulcer that required extensive debridement including essentially resecting most of his gluteus estela muscle, wound dehiscence of his stump that required revision, and a degree of chronic oxygen dependence that seem to relate to all of the above Admission Exam Per Admitting Provider In general he is intubated sedated and nonresponsive HEENT normocephalic atraumatic mucous membranes are moist, endotracheal tube is intact with no local breakdown Cardio somewhat distant tachycardic no rubs murmurs or gallops Lungs are very quiet probably more diminished base left may be faint rales base right no rhonchi no wheeze on the ventilator, he shows and even chest rise and fall Abdomen soft nondistended no guarding no rigidity. Nothing appears tender, but obviously he is intubated and sedated Extremities he has a very proximal right lower extremity AKA, the wound appears overall clean dry and intact, so a little bit bruised around the armando, but there is no erythema no exudate no dehiscence. His very large sacral ulcer appears deep but clean, there is no exudate, there is no surrounding tracking erythema, overall the tissue appears quite pink. Otherwise skin shows no other rashes, pallor, or icterus left lower extremity shows no erythema edema or cords Neuro is very difficult to assess due to him being intubated and sedated, but he shows no asymmetry or anything umair to a focal neuro deficitas best can be assessed cranial nerves II through XII appear to be intact, he shows no contractures or anything else that would suggest a motor deficit, obviously sensation cannot be checked Mental status has him intubated and sedated GUFoley in place no overtabnormal findings noted Labs and x-rays reviewed Principal Diagnosis Discharge Exam General: Nonresponsive to any stimuli. HEENT: Absent pupil reflex. Absent corneal reflex. Pulm: No spontaneous respirations. Cardiac: Absent peripheral pulses. Discharge Data Allergies Allergy/AdvReac Type Severity Reaction Status Date / Time clindamycin Allergy Unknown Unknown Verified 06/11/20 20:20 Penicillins Allergy Unknown Unknown Verified 06/11/20 20:20 Consultations 07/23/20 14:43 ED Decision to Admit Stat 07/23/20 16:51 Consult Wood Drill Operator Routine Ordered Studies 07/23/20 20:01 US point of care ultrasound Urgent Hospital Course (1) Septic shock: Mr. Lomeli presented to [facility] on 07/23/20 from [facility] for respiratory distress 2/2 sepsis and subsequently required mechanical ventilation, sedation, and pressor support. He was admitted to the ICU and his condition worsened as he developed multiorgan failure and septic shock. The halfway in charge of the patient's custody was contacted and the decision (via 2 physicians) was made to terminally extubate. Today was ICU day 2, Vent day 2. septic shock w/ multiorgan failure It is unclear what the initial source of infection was, but aspiration pneumonia, other pneumonias, and wound infection were possible candidates. Empiric antibiotics vanc and cefepime were started. Leukocytosis uptrended to 20.05. Hb downtrended to 5.2. Coags suggestive of DIC. ABG worsened to 7.04/40/99/11 +AG, lactate 13.5, suggestive of lactic acidosis. Transaminases were in the thousands, LDH 67181. Procalc 77.85. CXR showed progression of bilateral mid-lower lung airspace opacities suggestive of pneumonia. Pressor support included Levophed plus vasopressin, doses, titrated up to high doses. Hydrocortisone IV and sodium bicarb were administered as well. large wounds - large buttock wound. On admission exam, it did not appear this was source of infection. - right above knee amputation secondary to critical limb ischemia. same as above pulmonary embolism - onset approximately 3 weeks agoanticoagulated on Coumadin (just started several days ago), w/ heparin->lovenox bridge. less likely acute VTE. coronary artery disease - troponins and ecg reviewed. less likely acute cardiac event as trigger of cascade of events hx of decompensated CHF - admission cxr more consistent w/ pneumonia than fluid overload COPD (chronic obstructive pulmonary disease) - likely contributed to the acute respiratory failure. (2) Buttock wound: (3) Dehiscence of amputation stump: (4) Encounter for pre-operative examination: (5) CHF (congestive heart failure): (6) CAD (coronary artery disease): (7) Cardiomyopathy, ischemic: (8) Sepsis with acute hypoxic respiratory failure: (9) Pneumonia: (10) Pulmonary embolism: Total Time Total Time Spent Total Time Spent (In Minutes): <30 Discharge Plan Discharge Items Patient Disposition: Discharge Diagnosis: secondary to sepsis Addtl Attending Provider Instructions: Sukhjinder Lomeli is a 75 year old male who was readmitted to [facility] yesterday on 07/23/20 after he was discharged to [facility] rehab from a ~40 day hospitalization. He had multiple comorbidities including atrial fibrillation, bilateral pulmonary embolus on anticoagulation, right above knee amputation, and large gluteal abscess wound. He was readmitted for respiratory failure and spring bsequently required mechanical ventilation, pressors, and sedation. He developed multiorgan failure and likely disseminated intravascular coagulation. Supervising Physician Co-Signing Physician Notes Attending Attestation I did not see the patient prior to his ; care was being primarily provided by the microsoft architect in the ICU. Please see my attestation in the pronouncement note, 07/24/2020. Resident Activity Tracking Resident Involvement: Resident Care Provided Care Provided: Adult Hospital Medicine
[2020-07-24] MEDS ORDERED: CEFEPIME 2,000 MG in SYRINGE 0 ML IV SCH (14:00)
[2020-07-24] MEDS ORDERED: cefTRIAXone SODIUM 1,000 MG in DEXTROSE 5% 50 ML IV SCH (14:00)
[2020-07-24 15:20] LABS: iSTAT Arterial Blood Gas pCO2 43 mmHg (35-46); iSTAT Arterial Blood Gas pH 7.23 (7.35-7.45); iSTAT Hematocrit 23 % (42-52); iSTAT Hemoglobin 7.8 g/dl (14.0-18.0); iSTAT Sodium 132 mmol/L (135-144)
[2020-07-24 15:21] LABS: iSTAT Arterial Blood Gas HCO3 18 meg/L (19-24); iSTAT Arterial Blood Gas pO2 135 mmHg (80-95); iSTAT Carbon Dioxide 19 mmol/L (24-31); iSTAT Sample Type Arterial
--- NOTE | 2020-07-24 16:01 | Electrocardiogram Report ---
Test Reason : Blood Pressure : / mmHG Vent. Rate : 138 BPM Atrial Rate : 138 BPM P-R Int : 120 ms QRS Dur : 082 ms QT Int : 294 ms P-R-T Axes : 079 067 077 degrees QTc Int : 445 ms Poor data quality, interpretation may be adversely affected Sinus tachycardia with Right atrial enlargement Nonspecific ST and T wave abnormality Abnormal ECG When compared with ECG of 22-JUN-2020 23:12, Premature atrial complexes are no longer Present T wave inversion less evident in Anterior leads Confirmed by Lance Galvan ([id number]) on 07/24/2020 4:01:17 PM Referred By: Tatianna ALVA Confirmed By:Jean Marie Galvan
--- NOTE | 2020-07-24 16:05 | Electrocardiogram Report ---
Test Reason : Blood Pressure : / mmHG Vent. Rate : 105 BPM Atrial Rate : 105 BPM P-R Int : 128 ms QRS Dur : 090 ms QT Int : 342 ms P-R-T Axes : 082 118 058 degrees QTc Int : 452 ms Sinus tachycardia Possible Left atrial enlargement Right axis deviation Right atrial enlargement Abnormal ECG When compared with ECG of 22-JUN-2020 23:12, Premature atrial complexes are no longer Present T wave inversion no longer evident in Anterior leads Confirmed by Lance Galvan ([id number]) on 07/24/2020 4:05:23 PM Referred By: Tatianna ALVA Confirmed By:Jean Marie Galvan
--- NOTE | 2020-07-24 16:08 | Electrocardiogram Report ---
Test Reason : Blood Pressure : / mmHG Vent. Rate : 118 BPM Atrial Rate : 118 BPM P-R Int : 130 ms QRS Dur : 096 ms QT Int : 318 ms P-R-T Axes : 082 091 048 degrees QTc Int : 445 ms Sinus tachycardia Rightward axis Right atrial enlargement Nonspecific ST abnormality Abnormal ECG When compared with ECG of 23-JUL-2020 17:54, (unconfirmed) Nonspecific T wave abnormality, worse in Anterior leads Confirmed by Lance Galvan ([id number] on 07/24/2020 4:08:37 PM Referred By: Tatianna SCI Confirmed By:Jean Marie Galvan
[2020-07-25] MEDS ORDERED: FAMOTIDINE 20 MG in SYRINGE 3 ML IV SCH (09:00)
== END 2020-07-24 15:19 | disposition expired | DRG 871 ==
LOC: ED 13:25 → 1E 15:35 → SUATTDRO 15:35 → 1E 15:57